=== PATIENT | male | born 1965 | race Hispanic/Latino ===

== ENCOUNTER 2020-02-29 15:05 | Observation (INO) | payer OTHER ==
[2020-02-29] MEDS ORDERED: NA CHLORIDE 0.9% 1,000 ML ONE (15:43)
[2020-02-29 15:50] LABS: Albumin 3.4 g/dL (3.4-5.0); Bilirubin Direct 0.1 mg/dL (0-0.2); Bilirubin Total 0.4 mg/dL (0.2-1.0); Magnesium 2.4 mg/dL (1.8-2.4); Potassium 3.5 mmol/L (3.5-5.1); Protein, Total 7.5 g/dL (6.4-8.2); Troponin (Emerg Dept Use Only) 0.04 ng/mL (0.0-0.045)
[2020-02-29 15:51] LABS: Absolute Lymphocytes (CBC) 2.6 K/uL (0.7-4.9); Basophils % 0.7 % (0-1.3); Hematocrit 42.5 % (39.6-49.0); MPV 10.4 fL (7.6-11.3)
[2020-02-29] MEDS ORDERED: ENOXAPARIN 100 MG/ML SYR SQ ONE (17:16)
[2020-02-29] MEDS ORDERED: METOPROLOL TAR 25 MG TAB ONE (17:16)
--- NOTE | 2020-02-29 17:26 | RAD REPORT ---
EXAM DESCRIPTION: Tamara Single View02/29/2020 3:49 pm CLINICAL HISTORY: Chest pain COMPARISON: 2011 FINDINGS: The lungs appear clear of acute infiltrate. The heart is normal size IMPRESSION: No acute abnormalities displayed
--- NOTE | 2020-02-29 17:42 | EDPHYS ---
Physician Documentation [facility] Name: Soy Liu Age: 54 yrs Sex: Male : 1965 Arrival Date: 02/29/2020 Time: 15:08 Bed 2 Private MD: ED Physician Momo Pettit HPI: 02/28 16:49 This 54 yrs old Male presents to ER via EMS with complaints of Chest Pain. abraham 16:49 The patient or guardian reports chest pain that is located primarily in the substernal abraham area, anterior chest wall, left. Onset: this morning. The pain does not radiate. Associated signs and symptoms: Pertinent positives: shortness of breath. The chest pain is described as a pressure, squeezing. Duration: The patient or guardian reports multiple episodes, with no pattern. Modifying factors: The symptoms are alleviated by nothing. the symptoms are aggravated by nothing. Severity of pain: At its worst the pain was moderate in the emergency department the pain has improved moderately. The patient has not experienced similar symptoms in the past. Historical: - Allergies: 15:19 No Known Allergies; iw - Home Meds: 15:19 Lisinopril Oral once daily [Active]; iw - PMHx: 15:19 Hypertension; iw - PSHx: 15:19 None; iw - Immunization history:: Adult Immunizations. - Social history:: Smoking status: Patient denies any tobacco usage or history of. - Family history:: not pertinent. ROS: 16:49 Constitutional: Negative for fever, chills, and weight loss, Eyes: Negative for injury, abraham pain, redness, and discharge, ENT: Negative for injury, pain, and discharge, Neck: Negative for injury, pain, and swelling, Abdomen/GI: Negative for abdominal pain, nausea, vomiting, diarrhea, and constipation, Back: Negative for injury and pain, : Negative for injury, bleeding, discharge, and swelling, MS/Extremity: Negative for injury and deformity, Skin: Negative for injury, rash, and discoloration, Neuro: Negative for headache, weakness, numbness, tingling, and seizure, Psych: Negative for depression, anxiety, suicide ideation, homicidal ideation, and hallucinations, Allergy/Immunology: Negative for hives, rash, and allergies, Endocrine: Negative for neck swelling, polydipsia, polyuria, polyphagia, and marked weight changes, Hematologic/Lymphatic: Negative for swollen nodes, abnormal bleeding, and unusual bruising. 16:49 Cardiovascular: Positive for chest pain. 16:49 Respiratory: Positive for shortness of breath. 16:49 MS/extremity: Negative for acute changes. Exam: 16:49 Constitutional: This is a well developed, well nourished patient who is awake, alert, abraham and in no acute distress. Head/Face: Normocephalic, atraumatic. Eyes: Pupils equal round and reactive to light, extra-ocular motions intact. Lids and lashes normal. Conjunctiva and sclera are non-icteric and not injected. Cornea within normal limits. Periorbital areas with no swelling, redness, or edema. ENT: Nares patent. No nasal discharge, no septal abnormalities noted. Tympanic membranes are normal and external auditory canals are clear. Oropharynx with no redness, swelling, or masses, exudates, or evidence of obstruction, uvula midline. Mucous membranes moist. Neck: Trachea midline, no thyromegaly or masses palpated, and no cervical lymphadenopathy. Supple, full range of motion without nuchal rigidity, or vertebral point tenderness. No Meningismus. Chest/axilla: Normal chest wall appearance and motion. Nontender with no deformity. No lesions are appreciated. Cardiovascular: Regular rate and rhythm with a normal S1 and S2. No gallops, murmurs, or rubs. Normal PMI, no JVD. No pulse deficits. Respiratory: Lungs have equal breath sounds bilaterally, clear to auscultation and percussion. No rales, rhonchi or wheezes noted. No increased work of breathing, no retractions or nasal flaring. Abdomen/GI: Soft, non-tender, with normal bowel sounds. No distension or tympany. No guarding or rebound. No evidence of tenderness throughout. Back: No spinal tenderness. No costovertebral tenderness. Full range of motion. Male : Normal genitalia with no discharge or lesions. Skin: Warm, dry with normal turgor. Normal color with no rashes, no lesions, and no evidence of cellulitis. MS/ Extremity: Pulses equal, no cyanosis. Neurovascular intact. Full, normal range of motion. Neuro: Awake and alert, GCS 15, oriented to person, place, time, and situation. Cranial nerves II-XII grossly intact. Motor strength 5/5 in all extremities. Sensory grossly intact. Cerebellar exam normal. Normal gait. Psych: Awake, alert, with orientation to person, place and time. Behavior, mood, and affect are within normal limits. Vital Signs: 15:16 BP 140 / 84; Pulse 65; Resp 18; Pulse Ox 99% on R/A; Weight 117.93 kg; Height 5 ft. 7 iw in. (170.18 cm); Pain 9/10; 15:49 BP 133 / 103; Pulse 66; Resp 16; Pulse Ox 96% ; bp 16:08 BP 129 / 79; Pulse 71; Resp 17; Pulse Ox 96% ; bp 16:49 BP 128 / 64; Pulse 56; Resp 17; Pulse Ox 98% ; bp 18:16 BP 138 / 99; Pulse 61; Resp 17; Pulse Ox 99% ; bp 20:55 BP 144 / 84; Pulse 65; Resp 16; Temp 98.2; Pulse Ox 99% on R/A; rv 15:16 Body Mass Index 40.72 (117.93 kg, 170.18 cm) iw MDM: 15:11 Patient medically screened. abraham 16:52 Data reviewed: vital signs, nurses notes, lab test result(s), EKG, radiologic studies, abraham plain films. 16:52 Differential diagnosis: abnormal EKG, acute myocardial infarction, coronary artery abraham disease chest wall pain, Cholelithiasis hiatal hernia, pancreatitis, pulmonary embolus, stable angina, unstable angina. HEART Score: History: Moderately Suspicious (1), ECG: Normal (0), Age: > 45 and < 65 years (1), Risk Factors: 1 or 2 risk factors (1), [Hypertension] [Obesity] Troponin: < or = 1 x Normal Limit (0). The patient was given aspirin in the Emergency Department. The patient's deep vein thrombosis risk score was calculated as follows: Total Score: 0. This patient was found to be at low risk for a deep vein thrombosis by using the Well's assessment criteria. The patient's pulmonary embolism risk score was calculated as follows: Total Score: 0-2 points. This patient was found to be at low risk for a pulmonary embolism by using the Well's assessment criteria. YOBANY Risk Score: TOTAL SCORE = 0. Data interpreted: registered nurse renal: rate is 56 beats/min, rhythm is normal sinus rhythm, Pulse oximetry: on room air is 98 %. Test interpretation: by ED physician or midlevel provider: ECG, plain radiologic studies. Counseling: I had a detailed discussion with the patient and/or guardian regarding: the historical points, exam findings, and any diagnostic results supporting the discharge/admit diagnosis, lab results, radiology results, the need for further work-up and treatment in the hospital. ED course: cp , risk factors, pain improved, no chest pressure, dr ovalle accepting. 02/28 15:12 Order name: Basic Metabolic Panel; Complete Time: 16:44 [facility] 02/28 15:12 Order name: CBC with Diff; Complete Time: 16:44 [facility] 02/28 15:12 Order name: LFT's; Complete Time: 16:44 [facility] 02/28 15:12 Order name: Magnesium; Complete Time: 16:44 [facility] 02/28 15:12 Order name: NT PRO-BNP; Complete Time: 16:44 [facility] 02/28 15:12 Order name: Troponin (emerg Dept Use Only); Complete Time: 16:44 [facility] 02/28 15:12 Order name: XRAY Chest (1 view) [facility] 02/28 15:12 Order name: EKG; Complete Time: 15:13 [facility] 02/28 15:12 Order name: Cardiac monitoring; Complete Time: 15:14 [facility] 02/28 15:12 Order name: EKG - Nurse/Tech; Complete Time: 15:15 [facility] 02/28 15:12 Order name: Lipase; Complete Time: 16:44 [facility] 02/28 15:12 Order name: IV Saline Lock; Complete Time: 15:19 [facility] 02/28 15:12 Order name: Labs collected and sent; Complete Time: 15:19 [facility] 02/28 15:12 Order name: O2 Per Protocol; Complete Time: 15:15 [facility] 02/28 15:12 Order name: O2 Sat Monitoring; Complete Time: 15:15 [facility] Administered Medications: 15:20 Drug: NS 0.9% 1000 ml Route: IV; Rate: 125 ml/hr; Site: right antecubital; bp 17:00 Drug: Lopressor 25 mg Route: PO; bp 18:18 Follow up: Response: No adverse reaction bp 17:00 Drug: Lovenox 1 mg/kg Route: Sub-Q; Site: left lower abdomen; bp 18:17 Follow up: Response: No adverse reaction bp Disposition: 02/29/20 17:40 Hospitalization ordered by Prince Yeni for Observation. Preliminary diagnosis are Other chest pain, Obesity, unspecified, Essential (primary) hypertension, Angina pectoris, unspecified. - Bed requested for Telemetry/MedSurg (observation). - Status is Observation. rv - Condition is Fair. - Problem is new. - Symptoms have improved. Signatures: Dispatcher [employer] EDMS Momo Pettit MD MD cha Williams, Irene, RN RN iw Peltier, Brian RN RN Karina Holly Ronaldo, RN RN rv Corrections: (The following items were deleted from the chart) 18:42 17:40 Hospitalization Ordered by Prince Yeni WHITE for Observation. Preliminary eb diagnosis is Other chest pain; Obesity, unspecified; Essential (primary) hypertension; Angina pectoris, unspecified. Bed requested for Telemetry/MedSurg (observation). Status is Observation. Condition is Fair. Problem is new. Symptoms have improved. abraham 21:15 18:42 02/29/2020 17:40 Hospitalization Ordered by Prince Yeni WHITE for Observation. rv Preliminary diagnosis is Other chest pain; Obesity, unspecified; Essential (primary) hypertension; Angina pectoris, unspecified. Bed requested for Telemetry/MedSurg (observation). Status is Observation. Condition is Fair. Problem is new. Symptoms have improved. eb
--- NOTE | 2020-02-29 17:42 | ER ---
Nurse's Notes [facility] Name: Soy Liu Age: 54 yrs Sex: Male : 1965 Arrival Date: 02/29/2020 Time: 15:08 Bed 2 Private MD: Diagnosis: Other chest pain;Obesity, unspecified;Essential (primary) hypertension;Angina pectoris, unspecified Presentation: 02/28 15:16 Chief complaint: EMS states: left sided chest pain, nausea and general weakness since iw last night, pain described as sharp, stabbing , also has mild diff breathing , denies fever or cough. Coronavirus screen: Proceed with normal triage. Patient denies a cough. Patient denies shortness of breath or difficulty breathing. Patient denies measured and/or subjective temperature greater than 100.4F prior to today's visit. Patient denies travel on a cruise ship or to a country the [facility] currently lists as an affected area. Patient denies contact with known and/or suspected case of COVID-19. Ebola Screen: Patient negative for fever greater than or equal to 101.5 degrees Fahrenheit, and additional compatible Ebola Virus Disease symptoms Patient denies exposure to infectious person. Patient denies travel to an Ebola-affected area in the 21 days before illness onset. No symptoms or risks identified at this time. Initial Sepsis Screen: Does the patient meet any 2 criteria? No. Patient's initial sepsis screen is negative. Does the patient have a suspected source of infection? No. Patient's initial sepsis screen is negative. Risk Assessment: Do you want to hurt yourself or someone else? Patient reports no desire to harm self or others. Onset of symptoms was February 28, 2020. 15:16 Method Of Arrival: EMS: [facility] iw 15:16 Acuity: JANIS 3 iw Triage Assessment: 15:20 General: Appears in no apparent distress. comfortable, Behavior is cooperative, bp appropriate for age, anxious. Pain: Complains of pain in chest. EENT: No deficits noted. Neuro: No deficits noted. Cardiovascular: Rhythm is sinus rhythm. Respiratory: No deficits noted. GI: No signs and/or symptoms were reported involving the gastrointestinal system. : No signs and/or symptoms were reported regarding the genitourinary system. Derm: No deficits noted. Musculoskeletal: No deficits noted. Historical: - Allergies: 15:19 No Known Allergies; iw - Home Meds: 15:19 Lisinopril Oral once daily [Active]; iw - PMHx: 15:19 Hypertension; iw - PSHx: 15:19 None; iw - Immunization history:: Adult Immunizations. - Social history:: Smoking status: Patient denies any tobacco usage or history of. - Family history:: not pertinent. Screenin:20 Abuse screen: Denies threats or abuse. Denies injuries from another. Nutritional bp screening: No deficits noted. Tuberculosis screening: No symptoms or risk factors identified. Fall Risk None identified. Assessment: 15:20 General: SEE TRIAGE NOTE. bp 16:08 Reassessment: IVF INFUSING, ALL CURRENT ORDERS COMPLETED. bp 16:50 Reassessment: VS STABLE ON MONITOR. RESULTS PENDING FOR DISPO. bp 18:16 Reassessment: ADMIT IN PROCESS. NO S/S ACUTE DISTRESS. HOSPITALIST AT B/S. bp 20:56 Pain: Pain does not radiate. Pain began suddenly. rv Vital Signs: 15:16 BP 140 / 84; Pulse 65; Resp 18; Pulse Ox 99% on R/A; Weight 117.93 kg; Height 5 ft. 7 iw in. (170.18 cm); Pain 9/10; 15:49 BP 133 / 103; Pulse 66; Resp 16; Pulse Ox 96% ; bp 16:08 BP 129 / 79; Pulse 71; Resp 17; Pulse Ox 96% ; bp 16:49 BP 128 / 64; Pulse 56; Resp 17; Pulse Ox 98% ; bp 18:16 BP 138 / 99; Pulse 61; Resp 17; Pulse Ox 99% ; bp 20:55 BP 144 / 84; Pulse 65; Resp 16; Temp 98.2; Pulse Ox 99% on R/A; rv 15:16 Body Mass Index 40.72 (117.93 kg, 170.18 cm) iw ED Course: 15:08 Patient arrived in ED. bp 15:10 Momo Pettit MD is Attending Physician. abraham 15:14 Brock Keith, RON is Primary Nurse. bp 15:15 Maintain EMS IV. Dressing intact. Good blood return noted. Site clean \T\ dry. Gauge \T\ bp site: 20 G RIGHT AC. 15:15 EKG done, by ED staff, reviewed by Momo Pettit MD. dh3 15:18 Triage completed. iw 15:19 Arm band placed on. iw 15:20 Patient has correct armband on for positive identification. Bed in low position. Call bp light in reach. Side rails up X2. riveter hand on. Pulse ox on. NIBP on. 15:49 XRAY Chest (1 view) In Process Unspecified. EDMI 17:40 Prince Jaime MD is Hospitalizing Provider. abraham 20:55 No provider procedures requiring assistance completed. IV is patent, with fluids rv infusing freely, with good blood return, Patient admitted, IV remains in place. Patient maintains SpO2 saturation greater than 95% on room air. Administered Medications: 15:20 Drug: NS 0.9% 1000 ml Route: IV; Rate: 125 ml/hr; Site: right antecubital; bp 17:00 Drug: Lopressor 25 mg Route: PO; bp 18:18 Follow up: Response: No adverse reaction bp 17:00 Drug: Lovenox 1 mg/kg Route: Sub-Q; Site: left lower abdomen; bp 18:17 Follow up: Response: No adverse reaction bp Outcome: 17:40 Decision to Hospitalize by Provider. abraham 20:56 Admitted to Med/surg accompanied by tech, via wheelchair, room 221, Report called to rv LUPE VELASQUEZ 20:56 Condition: good 20:56 Instructed on the need for admit. 21:15 Patient left the ED. rv Signatures: Dispatcher [employer] Momo Brooke MD MD cha Williams, Irene, RN RON Veda Oseguera formerly [facility] Brock Keith RN RN Modesto Kirby RN RN rv
[2020-02-29] MEDS ORDERED: LORAZEPAM 0.5 MG TABLET PO PRN (18:37)
--- NOTE | 2020-02-29 18:44 | P.HP ---
Certification for Inpatient Patient admitted to: Observation With expected LOS: <2 Midnights Practitioner: I am a practitioner with admitting privileges, knowledge of patient current condition, hospital course, and medical plan of care. Services: Services provided to patient in accordance with Admission requirements found in Title 42 Section 412.3 of the Code of Federal Regulations Patient History Date of Service: 02/29/20 Reason for admission: Chest pain History of Present Illness: Patient is a 54-year-old male with a known past medical history of hypertension and hyperlipidemia who presented the ER accompanied by the be evaluated for chest pain. The onset of symptoms was the evening before admission when he developed a non radiating, left-sided chest pain. Patient has nitroglycerin at home but did not take it because he did in no a headache at the time. Associated symptoms include dizziness that the patient described as vertiginous, nausea and dry heaving. He has a distant history of polysubstance abuse but none currently. He has never had a stress test. 1st troponin and EKG the ER are normal. Allergies No Known Allergies Allergy (Unverified 01/09/12 01:40) Home Medications: Aspirin [Aspirin EC 81 MG] 2 tab PO DAILY #0 tablet. 01/10/12 LORazepam [Ativan] 0.5 mg PO Q24HP PRN #0 tab 01/10/12 Lisinopril 20 mg PO DAILY #0 tablet 01/10/12 Pravastatin Sodium [Pravachol] 20 mg PO DAILY #0 tablet 01/10/12 hydroCHLOROthiazide [Hydrodiuril*] 25 mg PO DAILY #0 tab 01/10/12 - Social History Alcohol use: No CD- Drugs: No Caffeine use: Yes Physical Examination - Physical Exam General: Cooperative, Obese, Other (Lethargic) HEENT: Atraumatic, Normocephalic, EOMI Neck: Supple Respiratory: Clear to auscultation bilaterally, Normal air movement Cardiovascular: No edema, Normal pulses, Regular rate/rhythm, Normal S1 S2 Gastrointestinal: Normal bowel sounds, Soft and benign, Non-distended, No tenderness, Other (Obese abdomen) Musculoskeletal: No swelling, No contractures, No erythema, No tenderness, No warmth Integumentary: No rashes, No breakdown, No significant lesion, No tenderness/swelling, No erythema, No warmth, No cyanosis Neurological: Normal speech, Sensation intact, Normal affect - Studies Laboratory Data (last 24 hrs) 02/29/20 15:20: WBC 8.6, Hgb 14.0, Hct 42.5, Plt Count 239 02/29/20 15:20: Sodium 141, Potassium 3.5, BUN 17, Creatinine 1.07, Glucose 110 H, Magnesium 2.4, Total Bilirubin 0.4, AST 26, ALT 59, Alkaline Phosphatase 101, Lipase 162 Assessment and Plan - Problems (Diagnosis) (1) Chest pain Current Visit: Yes Status: Acute (2) Morbid obesity Current Visit: Yes Status: Acute (3) Hypertension Current Visit: Yes Status: Acute - Plan Assessment 54-year-old male with morbid obesity, hypertension currently admitted for evaluation of chest pain and. 1st troponin and EKG within normal limits. Chest pain Hypertension Morbid obesity Plan: Admit under observation with telemetry Risk stratification with lipid panel and A1c Trend troponin and EKG Patient will benefit from a stress test at this time Discharge tomorrow if workup normal - Advance Directives Does patient have a Living Will: No Does patient have a Durable POA for Healthcare: No
[2020-02-29 21:43] VITALS: BMI 40.6
[2020-03-01] MEDS: ASPIRIN EC 81 MG TAB PO SCH (08:03)
[2020-03-01] MEDS ORDERED: NITROGLYCERIN 0.4 MG/TAB SL ONE (08:11)
[2020-03-01] MEDS ORDERED: CODEINE 30MG/APAP 300MG TAB PO ONE (08:12)
[2020-03-01] MEDS ORDERED: ONDANSETRON 4 MG/2 ML VIAL IV ONE (08:12)
[2020-03-01] MEDS: ATORVASTATIN 40 MG TAB PO SCH ×2 (08:36→08:40)
[2020-03-01] MEDS ORDERED: LISINOPRIL PO SCH (09:00)
[2020-03-01] MEDS ORDERED: [UNRECOGNIZED DRUG - OTHER] PO SCH (09:00)
[2020-03-01] MEDS ORDERED: HYDROCHLOROTHIAZIDE PO SCH (09:00)
[2020-03-01] MEDS ORDERED: lisinopriL 20 MG TAB PO SCH (09:00)
[2020-03-01] MEDS: MECLIZINE HCL 12.5 MG TAB PO SCH (09:45)
[2020-03-01] MEDS ORDERED: Enoxaparin 120 MG/0.8 ML SYR SQ SCH ×2 (10:00→21:00)
[2020-03-01] MEDS ORDERED: hydroCHLOROthiazide 25 MG TAB PO SCH (10:00)
[2020-03-01 11:00] VITALS: O2SAT 96
[2020-03-01] MEDS ORDERED: hydroCHLOROthiazide 25 MG TAB PO ONE (11:00)
[2020-03-01] MEDS ORDERED: lisinopriL 20 MG TAB PO ONE (11:00)
--- NOTE | 2020-03-01 11:24 | EKG ---
Test Date: 2020-03-01 Test Time: 08:46:51 Staffing Analyst: RT Valderrama MEASUREMENT RESULTS: Intervals: Rate: 66 ID: [id number] QRSD: 100 QT: 396 QTc: 415 [place]: P: 56 ID: [id number] QRS: 10 T: 21 INTERPRETIVE STATEMENTS: Normal sinus rhythm Normal ECG Compared to ECG 02/29/2020 21:42:29 Sinus bradycardia no longer present Electronically Signed On 03-01-20 11:23:06 CDT by Margarito Diez
--- NOTE | 2020-03-01 11:25 | EKG ---
Test Date: 2020-02-29 Test Time: 21:42:29 Event Marketing Coordinator: RT MEASUREMENT RESULTS: Intervals: Rate: 57 W[place]: 148 QRSD: 102 QT: 414 QTc: 402 [place]: P: 43 W[place]: 148 QRS: 20 T: 21 INTERPRETIVE STATEMENTS: Sinus bradycardia Otherwise normal ECG Compared to ECG 01/09/2012 17:29:40 Sinus rhythm no longer present Electronically Signed On 03-01-20 11:23:16 CDT by Margarito Diez
--- NOTE | 2020-03-01 11:26 | EKG ---
Test Date: 2020-02-29 Test Time: 15:15:56 Varnish Inspector: ANTHONY MEASUREMENT RESULTS: Intervals: Rate: 64 RI: 146 QRSD: 100 QT: 404 QTc: 416 [place]: P: 66 RI: 146 QRS: 25 T: 28 INTERPRETIVE STATEMENTS: Normal sinus rhythm Normal ECG Compared to ECG 01/09/2012 17:29:40 No significant changes Electronically Signed On 03-01-20 11:23:25 CDT by Margarito Diez
--- NOTE | 2020-03-01 12:02 | P.PN ---
Subjective Date of Service: 03/01/20 Chief Complaint: Chest pain Subjective: No new changes (Patient is complaining of nausea, headache and chest pain. Chest pain was unrelieved with nitroglycerin sublingual. He is also having vertiginous symptoms. Cardiology consulted.) Physical Examination - Vital Signs Temperature: 97.5 F Blood Pressure: 142/84 Pulse: 65 Respirations: 19 Pulse Ox (%): 94 - Physical Exam General: Moderate distress, Other HEENT: Atraumatic, Normocephalic, EOMI Neck: Supple Respiratory: Clear to auscultation bilaterally, Normal air movement Cardiovascular: No edema, Normal pulses, Regular rate/rhythm, Normal S1 S2 Gastrointestinal: Normal bowel sounds, Soft and benign, Non-distended, No tenderness Musculoskeletal: No clubbing, No swelling, No contractures, No erythema, No tenderness, No warmth Integumentary: No rashes, No breakdown, No significant lesion, No tenderness/swelling, No erythema, No warmth, No cyanosis Neurological: Normal speech, Normal tone, Normal affect - Studies Laboratory Data (last 24 hrs) 02/29/20 15:20: WBC 8.6, Hgb 14.0, Hct 42.5, Plt Count 239 02/29/20 15:20: Sodium 141, Potassium 3.5, BUN 17, Creatinine 1.07, Glucose 110 H, Magnesium 2.4, Total Bilirubin 0.4, AST 26, ALT 59, Alkaline Phosphatase 101, Lipase 162 Assessment & Plan - Problems (Diagnosis) (1) Chest pain Current Visit: Yes Status: Acute (2) Morbid obesity Current Visit: Yes Status: Acute (3) Hypertension Current Visit: Yes Status: Acute Physician Review Additional Text: Assessment 54-year-old male with morbid obesity, hypertension currently admitted for evaluation of chest pain. Troponin has been negative x3. Her EKG was within normal limits. However, he continued to complain of persistent chest pain complicated by vertiginous symptoms, nausea and headache. Chest pain Hypertension Morbid obesity Vertigo Nausea Plan: Keep patient 1 more day Will start systemic anti coagulation for possible unstable angina Cardiology was consulted Optimize medication to include high-intensity statin P.r.n. nitroglycerin on board Follow-up CT head and chest assess non-cardiac etiology Started on meclizine for possible BPPV PRN zofran on board
--- NOTE | 2020-03-01 12:05 | RAD REPORT ---
EXAM DESCRIPTION: CT - Head Brain Wo Cont - 03/01/2020 11:59 am CLINICAL HISTORY: chest pain Headache, drowsiness COMPARISON: <Comparisons> TECHNIQUE: All CT scans are performed using dose optimization technique as appropriate and may inclu de automated exposure control or mA/KV adjustment according to patient size. FINDINGS: No intracranial hemorrhage, hydrocephalus or extra-axial fluid collection.No areas of brai n edema or evidence of midline shift. The paranasal sinuses and mastoids are clear. The calvarium is intact. IMPRESSION: No acute intracranial abnormality.
--- NOTE | 2020-03-01 12:08 | RAD REPORT ---
EXAM DESCRIPTION: CT - Chest For Pe Angio - 03/01/2020 11:59 am CLINICAL HISTORY: Chest pain. chest pain COMPARISON: No comparisonsNo comparisons TECHNIQUE: CT angiogram of the pulmonary arteries was performed with MIP. All CT scans are performed using dose optimization technique as appropriate and may include automated exposure control or mA/KV adjustment according to patient size. FINDINGS: No evidence of pulmonary thromboembolism. No acute aortic finding demonstrated. The lungs are clear. No significant pericardial or pleural fluid. No concerning bony finding. Prominent fatty liver. IMPRESSION: No evidence of pulmonary thromboembolism. No acute lung findings.
[2020-03-01] MEDS: PANTOPRAZOLE 40MG TABLET PO SCH (12:31)
[2020-03-01] MEDS ORDERED: TRAMADOL HCL 50 MG TAB PO PRN (23:02)
[2020-03-02] MEDS: PANTOPRAZOLE 40MG TABLET PO SCH (05:55)
[2020-03-02] MEDS: ASPIRIN EC 81 MG TAB PO SCH (08:47)
[2020-03-02] MEDS: MECLIZINE HCL 12.5 MG TAB PO SCH (08:48)
[2020-03-02] MEDS ORDERED: ACETAMINOPHEN 325 MG TABLET PO PRN (08:53)
[2020-03-02] MEDS ORDERED: lisinopriL 20 MG TAB PO SCH (09:00)
[2020-03-02] MEDS ORDERED: hydroCHLOROthiazide 25 MG TAB PO SCH (09:00)
--- NOTE | 2020-03-02 12:07 | CON ---
Date of Consultation: 03/01/2020 Patient admitted on 02/29/2020. I saw the patient on 03/01/2020. Reason For Consultation: Chest pain. History Of Present Illness: Mr. Liu is a 54-year-old male without any previous c ardiac history. He has a history of hypertension and dyslipidemia. He came in with multiple complai nts, but one of them was definitely vertigo. He had dizziness and vertigo symptoms when he moves his head in any position. He also has nausea and vomiting. Had midepigastric chest pain that has been going on now for about 2 to 3 days. Denied any PND, orthopnea, pedal edema, palpitation, or syncope. He has a normal EKG and normal troponin. Past Medical History: As stated above. Allergies: NONE. Review of Systems: Negative. Social History: Negative for tobacco or alcohol. Family History: Negative for heart disease. Medications: At home include lisinopril with hydrochlorothiazide. Physical Examination: General: He was in moderate distress from pain in his midepigastric region, complained of dizziness and nausea, looked uncomfortable. Vital Signs: Stable. Sinus rhythm. Afebrile. HEENT: Negative. Neck: Supple without any bruit, lymphadenopathy, JVD, or thyromegaly. Chest: Clear to auscultation and percussion. Cardiac: Revealed a regular rhythm and rate. No murmurs, gallops, or rubs. Abdomen: Tender throughout. No rebound. No rigidity. Extremities: Revealed no clubbing, cyanosis, or edema. Diagnostic Data: His EKG was normal. Chest x-ray was normal. Troponin was normal. He had a CTA th at was normal. He had a CT of his head that was normal. His triglyceride was 328, cholesterol was 2 03. Impression And Plan: 1.Atypical chest pain, most likely gastric or gastroesophageal in nature. I would like him to start Protonix. 2.Dyslipidemia. He should be on a statin. 3.Hypertension, well controlled on lisinopril and hydrochlorothiazide. 4.Obesity. 5.Vertigo. Meclizine has been started. He has had a negative workup including CT of his head, CTA, chest x-ray, EKG, troponin, BNP. I think if his symptoms do not improve, we should consider him for a GI consultation, possibly endoscopy. F rom cardiac risk factors, he does have hypertension, dyslipidemia, and obesity. I think an outpatien t echocardiogram and an MPI may be reasonable. We will see how he does with the Protonix and the [facility] lizine first. If he feels better tomorrow, he can go home and we will do an outpatient workup. BONY/GAYATRI Voice ID: [id number] Report ID: [id number]
[2020-03-02 12:46] VITALS: BP 138/86; TEMP 98.1
--- NOTE | 2020-03-02 13:40 | PN ---
Date of Progress Note: 03/02/2020 Patient had been admitted for chest pain. TN ruled out. He was found to have hypertension, dyslipid emia, obesity, normal EKG, normal troponin. Workup that has been very extensive so far including usman ctrocardiogram, head CT, CTA, chest x-ray, all of which have been negative. His troponin did not bum p. He remained in sinus rhythm. Symptoms have improved on meclizine and on Protonix. I am in favor of him going home and I will make arrangements for him to have an outpatient echocardiogram and an M PI. The case will be discussed further with Dr. Jaime. BONY/GAYATRI Voice ID: [id number] Report ID: [id number]
--- NOTE | 2020-03-02 14:28 | P.PN ---
Subjective Date of Service: 03/02/20 Chief Complaint: Chest pain Subjective: No new changes (- still chest pain , -c/o of intermittent headaches still - still back pain) Physical Examination - Vital Signs Temperature: 98.1 F Blood Pressure: 138/86 Pulse: 60 Respirations: 20 Pulse Ox (%): 96 - Physical Exam General: Alert, Oriented x3, Obese HEENT: Atraumatic, Normocephalic, PERRLA, Mucous membr. moist/pink Neck: Supple, 2+ carotid pulse no bruit Respiratory: Clear to auscultation bilaterally, Normal air movement Cardiovascular: Normal pulses, Regular rate/rhythm, Normal S1 S2 Gastrointestinal: Normal bowel sounds, Soft and benign, Non-distended Musculoskeletal: No clubbing, No swelling Integumentary: No rashes, No breakdown Neurological: Normal speech, Normal strength at 5/5 x4 extr, Normal tone Assessment And Plan Physician Review: Patient Assessed, Agree with Above Assessment and Plan Physician Review Additional Text: Assessment 54-year-old male with morbid obesity, hypertension currently admitted for evaluation of chest pain. Troponin has been negative x3. Her EKG was within normal limits. However, he continued to complain of persistent chest pain complicated by vertiginous symptoms, nausea and headache. Chest pain Hypertension Morbid obesity Vertigo Nausea Plan: CE and EKG negative - improving dizizness - will do nsaid for headache and chest pain -cleared for cardiology for dc home today -follow echo and MRI as outpt - still possible BPPV
--- NOTE | 2020-03-02 14:43 | P.DS ---
Admission Date: 02/29/20 Discharge Date: 03/02/20 Disposition: ROUTINE DISCHARGE Discharge Condition: FAIR Reason for Admission: Chest pain - Problems (1) Chest pain Current Visit: Yes Status: Acute (2) Hypertension Current Visit: Yes Status: Acute (3) Migrainous dizziness Current Visit: Yes Status: Acute (4) Morbid obesity Current Visit: Yes Status: Acute Hospital Course: Patient with history of hypertension, obesity admitted for headaches, and chest pain. She had negative set of cardiac enzymes. EKG was unremarkable. He had a CT of the chest PE protocol-shows no evidence of emboli seen. He had head CT that was negative for any acute infarct. He was evaluated by Cardiology and started on empirical meclizine for presumed benign positional Vertigo . With negative cardiac enzymes patient has been scheduled to follow with Cardiology for outpatient echocardiogram and myocardial perfusion studies. Patient continued to have headache and chest pain symptoms and was started on empirical NSAIDs. He was noted with hyperlipidemia and started on Lipitor. Patient is clinically stable and will be discharged home today Vital Signs/Physical Exam: Temp Pulse Resp BP Pulse Ox 98.1 F 60 20 138/86 96 03/02/20 14:28 03/02/20 14:28 03/02/20 14:28 03/02/20 14:28 03/02/20 14:28 General: Alert, In no apparent distress, Oriented x3 HEENT: Atraumatic, Normocephalic, PERRLA, Mucous membr. moist/pink Neck: Supple, 2+ carotid pulse no bruit Respiratory: Clear to auscultation bilaterally, Normal air movement Cardiovascular: Normal pulses, Regular rate/rhythm, Normal S1 S2 Gastrointestinal: Normal bowel sounds, Soft and benign, Non-distended Musculoskeletal: No clubbing, No swelling Integumentary: No rashes, No breakdown Neurological: Normal gait, Normal speech, Normal strength at 5/5 x4 extr External genitalia: No edema, No lesions Laboratory Data at Discharge: WBC 8.6 K/uL (4.3-10.9) 02/29/20 15:20 Hgb 14.0 g/dL (13.6-17.9) 02/29/20 15:20 Hct 42.5 % (39.6-49.0) 02/29/20 15:20 Plt Count 239 K/uL (152-406) 02/29/20 15:20 Sodium 141 mmol/L (136-145) 02/29/20 15:20 Potassium 3.5 mmol/L (3.5-5.1) 02/29/20 15:20 BUN 17 mg/dL (7-18) 02/29/20 15:20 Creatinine 1.07 mg/dL (0.55-1.3) 02/29/20 15:20 Glucose 110 mg/dL (74-106) H 02/29/20 15:20 Magnesium 2.4 mg/dL (1.8-2.4) 02/29/20 15:20 Total Bilirubin 0.4 mg/dL (0.2-1.0) 02/29/20 15:20 AST 26 U/L (15-37) 02/29/20 15:20 ALT 59 U/L (12-78) 02/29/20 15:20 Alkaline Phosphatase 101 U/L (45-117) 02/29/20 15:20 Troponin I 0.04 ng/mL (0.0-0.045) 03/01/20 08:50 Triglycerides 328 mg/dL (<150) H 03/01/20 05:07 Cholesterol 203 mg/dL (<200) H 03/01/20 05:07 HDL Cholesterol 37 mg/dL (40-60) L 03/01/20 05:07 Cholesterol/HDL Ratio 5.49 03/01/20 05:07 Lipase 162 U/L (73-393) 02/29/20 15:20 Home Medications: Lisinopril/Hydrochlorothiazide [Lisinopril-Hctz 20-12.5 mg Tab] 2 tab PO DAILY 02/29/20 Aspirin [Aspirin EC 81 MG] 81 mg PO DAILY #30 tablet. 03/02/20 Atorvastatin Calcium [Lipitor] 40 mg PO BEDTIME #30 tab 03/02/20 Meclizine HCl [Antivert*] 25 mg PO DAILY #30 tab 03/02/20 Naproxen 375 mg PO BID #14 tablet. 03/02/20 Pantoprazole [Protonix Tab*] 40 mg PO DAILYAC #30 tab 03/02/20 New Medications: Meclizine HCl [Antivert*] 25 mg PO DAILY #30 tab Aspirin [Aspirin EC 81 MG] 81 mg PO DAILY #30 tablet. Atorvastatin Calcium [Lipitor] 40 mg PO BEDTIME #30 tab Naproxen 375 mg PO BID #14 tablet. Pantoprazole [Protonix Tab*] 40 mg PO DAILYAC #30 tab Diet: Low sodium Activity: Fall precautions Time spent managing pt's care (in minutes): 35
== END 2020-03-02 16:01 | disposition home or self-care (01) ==
LOC: ER 15:05 → ERHOLD 17:13 → 2ND 20:54
PROVIDERS: ADMIT Internal Medicine; ATTEND Internal Medicine
DX: R07.89 Other chest pain (principal); I10 Essential (primary) hypertension; E78.5 Hyperlipidemia, unspecified; R42 Dizziness and giddiness; R11.0 Nausea; E66.01 Morbid (severe) obesity due to excess calories; Z68.41 Body mass index [BMI] 40.0-44.9, adult; Z11.59 Encounter for screening for other viral diseases; Z79.82 Long term (current) use of aspirin; Z79.899 Other long term (current) drug therapy
CPT/HCPCS: 93005 ×3; 85025; 80048; 36415 ×2; 83735; 80061; 80076; 83036; 84484 ×3; 83690; 83880; 70450; 71275; 71045; 96372; 99285; U0002; Q9967; J8597 ×2; J1650 ×2; J7030; J2405; G0378 ×4

== ENCOUNTER 2021-08-06 08:27 | Emergency (ER) | payer OTHER ==
--- OUTSIDE RECORDS SUMMARY | 2021-08-06 08:31 | XMS REPORT | Continuity of Care Document ---
:1965 Author Organization [facility] t Address [address] [place] [address] Care Team Providers Name Role Phone Philip Colby [facility] Primary Care Physic malika Lizte FERMENTER CHAMPAGNE, F Attending Clinician Payers Payer Name Policy Type Policy Number Effective Date Expiration Date S Riidr [id number] 2017 NON-CONTRACT 00:00:00 GENERIC Problems Condition Condition Condition Status Onset Resolution Last Treating Co mments Source Name Details Category Date Date Treatment Clinician Date No known No known Disease Unive rs active active ity of problems problems [facility] Allergies, Adverse Reactions, Alerts Allergy Allergy Status Severity Reaction(s) Onset Inactive Treating Comm ents Source Name Type Date Date Clinician NO KNOWN Drug Active Univers ALLERGIE Class ity of S [facility] Social History Social Habit Start Date Stop Date Quantity Comments Source Exposure to Not sure [facility] SARS-CoV-2 (event) Medica l Branch Sex Assigned At [birth year] [facility] 00:00:00 00:00:00 [facility] Smoking Status Start Date Stop Date Source Unknown if ever smoked [facility] Medications Ordered Filled Start Stop Current Ordering Indication Dosage Frequency Signature Comments Components Source Medication Medication Date Date Medication? Clinician (SIG) Name Name dexamethaso 2020- No 10mg 10 mg, Uni vers ne 05-17 Oral, ity of (DEC[place] 18:30: 17:32 [place], [place] 00 :00 dose, Sun Medi snehal injection 05/17/21 at Bran ch 10 mg 1330, Routine ketorolac 2020- No 30mg 30 mg, Unive rs (TORADOL) 05-17 Intramuscu ity of injection 18:30: 17:31 [place], [place]CE, [place] 30 mg 00 :00 1 dose, Medical [place] [facility] 05/17/21 at 1330, CONNIE
Fa culty member approving Restricted medication : DWAYNE [place] dexamethaso 2020- No 10mg 10 mg, Uni vers ne 05-17 Oral, ity of (DECADRON 18:30: 17:32 [place] 00 :00 dose, Sun Medi snehal injection 05/17/21 at Bran ch 10 mg 1330, Routine ketorolac 2020- No 30mg 30 mg, Unive rs (TORADOL) 05-17 Intramuscu ity of injection 18:30: 17:31 lar, ONCE, [place] 30 mg 00 :00 1 dose, [facility] 05/17/21 at 1330, CONNIE
Fa culty member approving Restricted medication : DWAYNE [place] cyclobenzap Yes [id number] 10mg Take 1 Univers rine 10 mg 9-12 tablet by ity of tablet 00:00: mouth 3 [place] 00 (three) Medical times Branch daily as needed for Muscle Spasms. ibuprofen Yes [id number] 800mg Take 1 Univers 800 mg 9-12 tablet by ity of tablet 00:00: mouth [place] 00 every 6 Medical (six) Branch hours as needed for Pain (scale 4-6). cyclobenzap Yes [id number] 10mg Take 1 Univers rine 10 mg 9-12 tablet by ity of tablet 00:00: mouth 3 [place] 00 (three) Medical times Branch daily as needed for Muscle Spasms. ibuprofen Yes [id number] 800mg Take 1 Univers 800 mg 9-12 tablet by ity of tablet 00:00: mouth [place] 00 every 6 Medical (six) Branch hours as needed for Pain (scale 4-6). ondansetron Yes 4mg Take 1 Univ ers 4 mg 2-09 tablet by ity of disintegrat 00:00: mouth [place] ing tablet 00 every 8 Medica l (eight) Branch hours as needed for Nausea and Vomiting (N/V). benzonatate 2018-0 Yes 100mg Take 1 Uni vers (TESSALON 2-09 capsule by [place]) 100 00:00: mouth [place] mg capsule 00 every 8 Medica l (eight) Branch hours as needed for Cough. ondansetron 2018-0 Yes 4mg Take 1 Univ ers 4 mg 2-09 tablet by ity of disintegrat 00:00: mouth [place] ing tablet 00 every 8 Medica l (eight) Branch hours as needed for Nausea and Vomiting (N/V). benzonatate 2018-0 Yes 100mg Take 1 Uni vers (TESSALON 2-09 capsule by [place]) 100 00:00: mouth [place] mg capsule 00 every 8 Medica l (eight) Branch hours as needed for Cough. Vital Signs Vital Name Observation Time Observation Value Comments Source Systolic blood 2021-05-17 17:07:58 138 mm[Hg[facility] Di[facility] 2021-05-17 17:07:58 94 mm[Hg] [facility] Heart rate 2021-05-17 17:07:58 75 /min [facility] Body temperature 2021-05-17 17:07:58 36.94 [facility] Respiratory rate 2021-05-17 17:07:58 17 /min [facility] Body height 2021-05-17 17:05:00 170.2 cm [facility] Body weight 2021-05-17 17:05:00 117.935 kg [facility] BMI 2021-05-17 17:05:00 40.72 kg/m2 [facility] Oxygen saturation in 2021-05-17 17:05:00 96 /min [facility] Arterial blood by [facility] Pulse oximetry [place] Procedures Procedure Date / Time Performed Performing Clinician Sourc e XR LUMBAR SPINE 3 VW 2021-05-17 17:50:14 Dwayne Cleveland Uni [facility] URINALYSIS 2021-05-17 17:37:00 Dwayne Cleveland [facility] CONSENT/REFUSAL FOR 2021-05-17 16:46:48 [facility], [facility] Medical Branch TREATMENT Encounters Start End Encounter Admission Attending Care Care Encounter Source Date/Time Date/Time Type Type Clinicians Facility Department ID 2021-05-17 2021-05-17 Emergency [place], [facility] [id number] Univers 12:20:00 13:32:00 [id number] [facility] [id number] [facility] snehal 084 Branch 2021-05-17 2021-05-17 Emergency X [facility] ERT [id number] Univers 11:46:00 11:46:00 [facility] Results Test Description Test Time Test Comments Results Result Comments Source URINALYSIS 2021-05-17 17:51:37 Test Item Value Reference Range Interpretation Comme nts APPEARANCE (test code = Clear Clear 6642065780) COLOR (test code = 9300096163) Yellow Yellow PH (test code = 4649136927) 4.8-8.0 SP GRAVITY (test code = 1.003-1.030 4936963839) GLU U QUAL (test code = Normal Normal 5299032218) BLOOD (test code = 0113217127) Negative Negative KETONES (test code = 4354443539) Negative Negative PROTEIN (test code = 2887-8) Negative Negative UROBILIN (test code = Normal Normal 5085085425) BILIRUBIN (test code = Negative Negative 0207137202) NITRITE (test code = 2357001452) Negative Negative LEUK SADIQ (test code = Negative Negative 7041514521) RBC/HPF (test code = 7662908314) See_Comment [Automated message] The system which ge nerated this result transmit sinai reference range: 0 - 3 HP F. The reference range was not used to interpret th is result as normal/abnormal . WBC/HPF (test code = 6823943127) See_Comment [Automated message] The system which ge nerated this result transmit sinai reference range: 0 - 5 HP F. The reference range was not used to interpret th is result as normal/abnormal . BACTERIA (test code = Negative Negative 5956398230) MUCOUS (test code = 4736117672) Slight Negative LPF A SQ EPITH (test code = <1 HPF 2627419188) Lab Interpretation (test code = Abnormal 10642-7) [facility] 17:51:37 Test Item Value Reference Range Interpretation Comments APPEARANCE (test code = Clear Clear 8807843641) COLOR (test code = Yellow Yellow 1276389585) PH (test code = 4.8-8.0 8225081615) SP GRAVITY (test code = 1.003-1.030 1060534914) GLU U QUAL (test code = Normal Normal 9030866124) BLOOD (test code = Negative Negative 3048696922) KETONES (test code = Negative Negative 2184872962) PROTEIN (test code = Negative Negative 2887-8) UROBILIN (test code = Normal Normal 6875358015) BILIRUBIN (test code = Negative Negative 0149664577) NITRITE (test code = Negative Negative 2244179620) LEUK SADIQ (test code = Negative Negative 8865495606) RBC/HPF (test code = See_Comment [Autom ated message] 1194256554) The system [employer] generated this result transmitted ref erence range: 0 - 3 HP F. The reference range was not used to int erpret this result as normal/abnormal . WBC/HPF (test code = See_Comment [Autom ated message] 6129243374) The system [employer] generated this result transmitted ref erence range: 0 - 5 HP F. The reference range was not used to int erpret this result as normal/abnormal . BACTERIA (test code = Negative Negative 9778043908) MUCOUS (test code = Slight Negative LPF A 9513764526) SQ EPITH (test code = <1 HPF 5326318535) Lab Interpretation (test Abnormal code = 61794-8) [facility]
[2021-08-06 08:55] LABS: Basophils % 0.7 % (0-1.3); Hematocrit 42.6 % (39.6-49.0); Lymphocytes % 33.5 % (15.3-44.8); MPV 9.3 fL (7.6-11.3); Protime INR 1.03; RBC Red Blood Cell Count 4.47 M/uL (4.33-5.43)
[2021-08-06 09:12] LABS: ALT/SGPT 57 U/L (12-78); AST/SGOT 22 U/L (15-37); Albumin 3.6 g/dL (3.4-5.0); Alkaline Phosphatase 96 U/L (45-117); BUN Blood Urea Nitrogen 24 mg/dL (7-18); Bicarbonate 28 mmol/L (21-32); Bilirubin Direct 0.2 mg/dL (0-0.2); Bilirubin Total 0.9 mg/dL (0.2-1.0); Glucose Level 157 mg/dL (74-106); Magnesium 2.2 mg/dL (1.8-2.4); NT PRO-BNP 21 pg/mL (<125); Potassium 3.2 mmol/L (3.5-5.1); Protein, Total 7.9 g/dL (6.4-8.2); Sodium Level 139 mmol/L (136-145); Troponin (Emerg Dept Use Only) < 0.02 ng/mL (0.0-0.045)
--- NOTE | 2021-08-06 09:12 | RAD REPORT ---
EXAM DESCRIPTION: RAD - Chest Single View - 08/06/2021 8:45 am CLINICAL HISTORY: CHEST PAIN COMPARISON: February 2020 TECHNIQUE: AP portable chest image was obtained 08/06/2021 8:45 am . FINDINGS: Lungs are clear. Interstitial pattern matches comparison. Heart and vasculature are normal . No measurable pleural effusion and no pneumothorax. No acute bony abnormality seen. No acute aortic findings suspected. IMPRESSION: No acute cardiopulmonary process. No significant change from comparison study.
[2021-08-06] MEDS ORDERED: MECLIZINE HCL 12.5 MG TAB ONE ×2 (09:24→13:22)
[2021-08-06] MEDS ORDERED: ONDANSETRON 4 MG/2 ML VIAL ONE (09:27)
--- NOTE | 2021-08-06 09:39 | RAD REPORT ---
EXAM DESCRIPTION: CT - Head Brain Wo Cont - 08/06/2021 9:33 am CLINICAL HISTORY: DIZZINESS, nausea and vomiting, history TIA COMPARISON: Head Brain Wo Cont dated 03/01/2020; Chest Single View dated 08/06/2021 TECHNIQUE: Axial 5 mm thick images of the head were obtained without IV contrast. All CT scans are performed using dose optimization technique as appropriate and may include automated exposure control or mA/KV adjustment according to patient size. FINDINGS: No intracranial hemorrhage, mass, edema or shift of mid-line structures. No acute infarcti on changes seen. No abnormal extra-axial fluid collections. Ventricles are normal. Mastoid air cells and visualized portions of the paranasal sinuses are clear. No acute bony findings. IMPRESSION: Negative non-contrast CT head examination for acute finding No significant change from 2019 study. Follow-up MR imaging could be performed if there are ongoing concerns for acute CVA.
[2021-08-06] MEDS ORDERED: POTASSIUM CL SA 10 MEQ TAB PO ONE (10:58)
--- NOTE | 2021-08-06 12:48 | RAD REPORT ---
EXAM DESCRIPTION: MRI - MRA Head Wo Cont - 08/06/2021 12:40 pm CLINICAL HISTORY: DIZZINESS CVA COMPARISON: No comparisons FINDINGS: 3D noncontrast [id number] MR angiography of the [place] was performed. No aneurysm, flow-limiting stenosis or vascular malformation is seen. Forward flow seen in codominant vertebral arteries. The visualized dural venous sinuses appear patent. IMPRESSION: No significant flow abnormality of the [place] is identified.
--- NOTE | 2021-08-06 12:53 | RAD REPORT ---
EXAM DESCRIPTION: MRI - MRA Neck W/Wo Cont - 08/06/2021 12:40 pm CLINICAL HISTORY: DIZZINESS COMPARISON: Brain W/Wo Cont dated 08/06/2021 FINDINGS: Contrast enhance 2D [id number] MR angiography of the neck vessels was performed. The bilateral carotid systems are widely patent. Moderate focal stenosis of the right vertebral arter y at its origin. The left vertebral artery is patent. Vertebral arteries are codominant. IMPRESSION: Widely patent bilateral carotid systems. Codominant vertebral arteries with moderate kevin nosis at the origin of the right vertebral artery.
--- NOTE | 2021-08-06 12:59 | RAD REPORT ---
EXAM DESCRIPTION: MRI - Brain W/Wo Cont - 08/06/2021 12:40 pm CLINICAL HISTORY: Dizziness COMPARISON: Head CT from 08/06/2021, head CT from 03/01/2020 TECHNIQUE: Sagittal T1-weighted images were obtained along with PD/heavily T2-weighted and T2-FLAIR images. Axial DWI and ADC mapping sequences were also obtained along with coronal heavily T2-weighted images were obtained. FINDINGS: No intracranial hemorrhage, mass or acute infarction. There is no edema or shift of midlin e structures. No extra-axial fluid collections. Garcia-matter/white matter junction is preserved. Signa l voids are seen as a normal finding in the major intracranial vessels. Mild chronic small vessel ischemic changes . Mild maxillary and ethmoid air cell thickening. IMPRESSION: No acute intracranial abnormality. Specifically, no evidence of acute infarct. No abnorm al enhancement. Mild chronic small vessel ischemic changes.
--- NOTE | 2021-08-06 13:14 | ER ---
Nurse's Notes [facility] Name: Soy Liu Age: 55 yrs Sex: Male : 1965 Arrival Date: 08/06/2021 Time: 08:28 Bed 6 Private MD: Diagnosis: Dizziness and giddiness;Other peripheral vertigo, bilateral Presentation: 08/06 08:35 Chief complaint: Patient states: CP and SOB since last night. +N/V EMS states: Aspirin ll1 324 mg PO, 1 nitro SL, and zofran 4mg IV given en route. 20 G L AC. Coronavirus screen: Vaccine status: Patient reports receiving the 2nd dose of the covid vaccine. Client denies travel out of the [place] in the last 14 days. difficulty breathing, Client presents with at least one sign or symptom that may indicate coronavirus-19. Standard/surgical mask placed on the client. Ebola Screen: Patient denies travel to an Ebola-affected area in the 21 days before illness onset. Initial Sepsis Screen: Does the patient meet any 2 criteria? No. Patient's initial sepsis screen is negative. Does the patient have a suspected source of infection? No. Patient's initial sepsis screen is negative. Risk Assessment: Do you want to hurt yourself or someone else? Patient reports no desire to harm self or others. Onset of symptoms was August 05, 2021. 08:35 Method Of Arrival: EMS ll1 08:35 Acuity: JANIS 3 ll1 Historical: - Allergies: 08:34 No Known Allergies; ll1 - PMHx: 08:34 Hypertension; ll1 - PSHx: 08:34 Unable to Obtain; ll1 - Immunization history:: Client reports receiving the 2nd dose of the Covid vaccine. - Social history:: Smoking status: Patient denies any tobacco usage or history of. Screenin:56 Abuse screen: Denies threats or abuse. Nutritional screening: No deficits noted. ll1 Tuberculosis screening: No symptoms or risk factors identified. Fall Risk IV access (20 points). Gait- Weak (10 pts.). Total Galarza Fall Scale indicates Low Risk Score (25-44 pts). Fall prevention measures have been instituted. Side Rails Up X 2 Placed close to Nursing Station Frequent Obs/Assesments occuring Family Present and informed to notify staff if they need to leave bedside As available Patient and Family Educated on Fall Prevention Program and strategies. Assessment: 08:58 General: Appears uncomfortable, ill, Behavior is calm, cooperative, appropriate for ll1 age. Pain: Denies pain. Pain: Pain does not radiate. Pain began 1 day ago. Neuro: No deficits noted. Cardiovascular: Reports chest pain, shortness of breath, Heart tones S1 S2 Capillary refill < 3 seconds Clubbing of nail beds is absent Patient's skin is warm and dry. Rhythm is sinus rhythm. 10:00 Reassessment: No changes from previously documented assessment. Patient and/or family ll1 updated on plan of care and expected duration. Pain level reassessed. Patient is alert, oriented x 3, equal unlabored respirations, skin warm/dry/pink. 11:00 Reassessment: No changes from previously documented assessment. Patient and/or family ll1 updated on plan of care and expected duration. Pain level reassessed. Patient is alert, oriented x 3, equal unlabored respirations, skin warm/dry/pink. Patient states feeling better. 12:00 Reassessment: No changes from previously documented assessment. Patient and/or family ll1 updated on plan of care and expected duration. Pain level reassessed. Patient is alert, oriented x 3, equal unlabored respirations, skin warm/dry/pink. 13:00 Reassessment: No changes from previously documented assessment. Patient and/or family ll1 updated on plan of care and expected duration. Pain level reassessed. Patient is alert, oriented x 3, equal unlabored respirations, skin warm/dry/pink. 14:01 Reassessment: ambulated to bathroom and back. Slow, but steady. Still feels dizziness. ll1 States he doesn't feel like he is well enough to go home. Dr. Camejo informed. . 15:00 Reassessment: No changes from previously documented assessment. Patient and/or family ll1 updated on plan of care and expected duration. Pain level reassessed. Patient is alert, oriented x 3, equal unlabored respirations, skin warm/dry/pink. 16:00 Reassessment: No changes from previously documented assessment. Patient and/or family ll1 updated on plan of care and expected duration. Pain level reassessed. Patient is alert, oriented x 3, equal unlabored respirations, skin warm/dry/pink. Vital Signs: 08:34 BP 149 / 92; Pulse 70; Resp 15; Temp 97.5; cs9 08:58 Pulse Ox 93% ; ll1 11:04 BP 136 / 76; Pulse 67; Resp 18; Pulse Ox 96% ; ll1 13:24 BP 135 / 87; Pulse 66; Resp 17; Pulse Ox 96% on R/A; ll1 14:34 BP 148 / 83; Pulse 60; Resp 18; Pulse Ox 97% on R/A; ll1 15:44 BP 148 / 101; Pulse 60; Resp 18; Pulse Ox 96% on R/A; ll1 16:20 BP 135 / 99; Pulse 64; Resp 18; Pulse Ox 95% ; ll1 14:34 still feels dizzy and weak with ambulaion. Gait is slow, but steady. ll1 ED Course: 08:28 Patient arrived in ED. am2 08:31 Yemi Camejo MD is Attending Physician. kdr 08:34 Carlos Ivan, RN is Primary Nurse. ll1 08:34 Arm band placed on Patient placed in an exam room, on a stretcher. ll1 08:37 Triage completed. ll1 08:38 Maintain EMS IV. Dressing intact. Good blood return noted. Site clean \T\ dry. Gauge \T\ ll 1 site: 20 G L AC. 08:41 EKG done, by ED staff, reviewed by Yemi Camejo MD. gd 08:45 XRAY Chest (1 view) In Process Unspecified. EDMS 08:55 Carlos Ivan, RN is Primary Nurse. ll1 08:56 Patient has correct armband on for positive identification. Bed in low position. Call ll1 light in reach. Side rails up X 1. court monitor on. Pulse ox on. NIBP on. 09:00 Patient maintains SpO2 saturation greater than 95% on room air. ll1 09:33 CT Head Brain wo Cont In Process Unspecified. EDMS 12:40 MRA Head Wo Cont In Process Unspecified. EDMS 12:40 Brain W/Wo Cont In Process Unspecified. EDMS 12:40 MRA Neck W/Wo Cont In Process Unspecified. EDMS 14:36 Diet: Patient given snack. Patient given water. sandwich meal pack. ll1 16:21 IV discontinued, intact, bleeding controlled, No redness/swelling at site. Pressure ll1 dressing applied. 16:21 No provider procedures requiring assistance completed. ll1 Administered Medications: 09:28 Drug: Meclizine 25 mg Route: PO; ll1 11:04 Follow up: Response: No adverse reaction; RASS: Alert and Calm (0) ll1 09:36 Drug: Zofran (Ondansetron) 4 mg Route: IVP; Site: left antecubital; ll1 11:04 Follow up: Response: No adverse reaction; Nausea is decreased; RASS: Alert and Calm (0) ll1 11:04 Drug: Potassium Chloride Liquid 40 mEq Route: PO; ll1 13:25 Follow up: Response: No adverse reaction ll1 13:25 Drug: Meclizine 25 mg Route: PO; ll1 16:22 Follow up: Response: No adverse reaction ll1 13:25 Drug: Valium (diazepam) 5 mg Route: PO; ll1 16:22 Follow up: Response: No adverse reaction ll1 14:33 Drug: NS 0.9% 500 ml Route: IV; Rate: bolus; Site: right antecubital; ll1 16:21 Follow up: Response: No adverse reaction; IV Status: Completed infusion; IV Intake: ll1 500ml Intake: 16:21 IV: 500ml; Total: 500ml. ll1 Outcome: 13:14 Discharge ordered by . kdr 16:21 Discharged to home ambulatory. ll1 16:21 Condition: stable 16:21 Discharge instructions given to patient, family, Instructed on discharge instructions, follow up and referral plans. no drinking with medication, no driving heavy equipment, medication usage, Demonstrated understanding of instructions, follow-up care, medications, Prescriptions given X 2. 16:25 Patient left the ED. iw Signatures: Dispatcher [employer] EDMS Yemi Camejo MD MD kdr Rosalind Wren RN RN iw Kaylie Mercado Lynsay, RN RN [email or web address] Lida Galindo Rodrigo Pineda Corrections: (The following items were deleted from the chart) 08:42 08:41 EKG done, by ED staff, violeta gd 09:28 08:35 Chief complaint: Patient states: CP and SOB since last night. EMS states: Aspirin ll1 324 mg PO, 1 nitro SL, and zofran 4mg IV given en route. 20 G L AC ll1
--- NOTE | 2021-08-06 13:14 | EDPHYS ---
Physician Documentation [facility] Name: Soy Liu Age: 55 yrs Sex: Male : 1965 Arrival Date: 08/06/2021 Time: 08:28 Bed 6 Private MD: ED Physician Yemi Camejo HPI: 08/06 09:41 This 55 yrs old Male presents to ER via EMS with complaints of Dizziness and kdr vomiting. 09:41 The patient presents with dizziness, generalized weakness, feeling off balance, kdr vertigo. Onset: The symptoms/episode began/occurred last night. Context: occurred at home, occurred while the patient was at rest, just prior to the episode the patient experienced no apparent symptoms. Modifying factors: The symptoms are alleviated by closing eyes, holding head still, lying down, the symptoms are aggravated by movement of head, standing up, changing position. Associated signs and symptoms: Pertinent positives: nausea, vomiting, Pertinent negatives: agitation, ataxia, blurred vision, chest pain, combativeness, confusion, diaphoresis, focal weakness, headache, near-syncope, numbness, palpitations, , seizure. Historical: - Allergies: 08:34 No Known Allergies; ll1 - PMHx: 08:34 Hypertension; ll1 - PSHx: 08:34 Unable to Obtain; ll1 - Immunization history:: Client reports receiving the 2nd dose of the Covid vaccine. - Social history:: Smoking status: Patient denies any tobacco usage or history of. ROS: 09:41 Constitutional: Negative for fever, chills, and weight loss, Eyes: Negative for injury, kdr pain, redness, and discharge, Neck: Negative for injury, pain, and swelling, Cardiovascular: Negative for chest pain, palpitations, and edema, Respiratory: Negative for shortness of breath, cough, wheezing, and pleuritic chest pain, Abdomen/GI: Negative for abdominal pain, nausea, vomiting, diarrhea, and constipation, Back: Negative for injury and pain, : Negative for injury, bleeding, discharge, and swelling, MS/Extremity: Negative for injury and deformity, Skin: Negative for injury, rash, and discoloration, Psych: Negative for depression, anxiety, suicide ideation, homicidal ideation, and hallucinations, Allergy/Immunology: Negative for hives, rash, and allergies, Endocrine: Negative for neck swelling, polydipsia, polyuria, polyphagia, and marked weight changes, Hematologic/Lymphatic: Negative for swollen nodes, abnormal bleeding, and unusual bruising. 09:41 Neuro: Positive for dizziness, Negative for altered mental status, gait disturbance, headache, hearing loss, loss of consciousness, numbness, seizure activity, speech changes, syncope, near syncope, tingling, tinnitus, tremor, visual changes, weakness. Exam: 09:41 Constitutional: This is a well developed, well nourished patient who is awake, alert, kdr and in no acute distress. Head/Face: Normocephalic, atraumatic. Eyes: Pupils equal round and reactive to light, extra-ocular motions intact. Lids and lashes normal. Conjunctiva and sclera are non-icteric and not injected. Cornea within normal limits. Periorbital areas with no swelling, redness, or edema. Neck: Trachea midline, no thyromegaly or masses palpated, and no cervical lymphadenopathy. Supple, full range of motion without nuchal rigidity, or vertebral point tenderness. No Meningismus. Chest/axilla: Normal chest wall appearance and motion. Nontender with no deformity. No lesions are appreciated. Cardiovascular: Regular rate and rhythm with a normal S1 and S2. No gallops, murmurs, or rubs. Normal PMI, no JVD. No pulse deficits. Respiratory: Lungs have equal breath sounds bilaterally, clear to auscultation and percussion. No rales, rhonchi or wheezes noted. No increased work of breathing, no retractions or nasal flaring. Abdomen/GI: Soft, non-tender, with normal bowel sounds. No distension or tympany. No guarding or rebound. No evidence of tenderness throughout. Back: No spinal tenderness. No costovertebral tenderness. Full range of motion. Skin: Warm, dry with normal turgor. Normal color with no rashes, no lesions, and no evidence of cellulitis. MS/ Extremity: Pulses equal, no cyanosis. Neurovascular intact. Full, normal range of motion. Psych: Awake, alert, with orientation to person, place and time. Behavior, mood, and affect are within normal limits. 09:44 Neuro: Orientation: to person, place, time, situation, Mentation: is normal, Memory: is kdr normal, Cranial nerves: grossly normal, Cerebellar function: no acute changes, Motor: is normal, Sensation: is normal, Gait: unable to assess. Vital Signs: 08:34 BP 149 / 92; Pulse 70; Resp 15; Temp 97.5; cs9 08:58 Pulse Ox 93% ; ll1 11:04 BP 136 / 76; Pulse 67; Resp 18; Pulse Ox 96% ; ll1 13:24 BP 135 / 87; Pulse 66; Resp 17; Pulse Ox 96% on R/A; ll1 14:34 BP 148 / 83; Pulse 60; Resp 18; Pulse Ox 97% on R/A; ll1 15:44 BP 148 / 101; Pulse 60; Resp 18; Pulse Ox 96% on R/A; ll1 16:20 BP 135 / 99; Pulse 64; Resp 18; Pulse Ox 95% ; ll1 14:34 still feels dizzy and weak with ambulaion. Gait is slow, but steady. ll1 MDM: 13:14 Patient medically screened. kdr 13:57 Data reviewed: vital signs, nurses notes, lab test result(s), radiologic studies. kdr Counseling: I had a detailed discussion with the patient and/or guardian regarding: the historical points, exam findings, and any diagnostic results supporting the discharge/admit diagnosis, lab results, radiology results, the need for outpatient follow up. 15:43 ED course: Just reevaluated the patient. He still feels poorly in general and overall kdr weak but without any other focal complaints. He had no nuchal rigidity or other signs of meningismus. He is somewhat dizzy with movement of his head left and right but not up and down. He otherwise has no focal deficits. I reviewed lab work and CT and MRI studies and informed the patient that none of those evidenced any reason for his current poor feeling. The patient was able to get up and go to the bathroom but felt weak at the time. He was without other focal complaints. He has had only about 150 have the 500 cc bolus will put the fluid on a pressure pump and infuse rapidly. I informed the patient that once the fluid was and I would reassess him at that time.. 08/06 08:34 Order name: Basic Metabolic Panel; Complete Time: 10:51 kdr 08/06 08:34 Order name: CBC with Diff; Complete Time: 10:51 kdr 12 08:34 Order name: LFT's; Complete Time: 10:51 kdr 12/02 08:34 Order name: Magnesium; Complete Time: 10:51 kdr 08/06 08:34 Order name: NT PRO-BNP; Complete Time: 10:51 kdr 08/06 08:34 Order name: PT-INR; Complete Time: 10:51 kdr 08/06 08:34 Order name: Troponin (emerg Dept Use Only); Complete Time: 10:51 kdr 08/06 08:34 Order name: XRAY Chest (1 view); Complete Time: 10:51 kdr 08/06 09:13 Order name: CT Head Brain wo Cont; Complete Time: 10:51 kdr 08/06 12:02 Order name: MRA Head Wo Cont; Complete Time: 13:02 EDMS 02 12:04 Order name: Brain W/Wo Cont; Complete Time: 13:02 EDMS 02 12:04 Order name: MRA Neck W/Wo Cont; Complete Time: 13:02 EDMS 1202 08:34 Order name: EKG; Complete Time: 08:34 kdr 08/06 08:34 Order name: Cardiac monitoring; Complete Time: 08:58 kdr 08/06 08:34 Order name: EKG - Nurse/Tech; Complete Time: 08:58 kdr 08/06 08:34 Order name: IV Saline Lock; Complete Time: 08:58 kdr 08/06 08:34 Order name: Labs collected and sent; Complete Time: 08:58 kdr 02 08:34 Order name: O2 Per Protocol; Complete Time: 08:58 kdr 08/06 08:34 Order name: O2 Sat Monitoring; Complete Time: 08:58 kdr Administered Medications: 09:28 Drug: Meclizine 25 mg Route: PO; ll1 11:04 Follow up: Response: No adverse reaction; RASS: Alert and Calm (0) ll1 09:36 Drug: Zofran (Ondansetron) 4 mg Route: IVP; Site: left antecubital; ll1 11:04 Follow up: Response: No adverse reaction; Nausea is decreased; RASS: Alert and Calm (0) ll1 11:04 Drug: Potassium Chloride Liquid 40 mEq Route: PO; ll1 13:25 Follow up: Response: No adverse reaction ll1 13:25 Drug: Meclizine 25 mg Route: PO; ll1 16:22 Follow up: Response: No adverse reaction ll1 13:25 Drug: Valium (diazepam) 5 mg Route: PO; ll1 16:22 Follow up: Response: No adverse reaction ll1 14:33 Drug: NS 0.9% 500 ml Route: IV; Rate: bolus; Site: right antecubital; ll1 16:21 Follow up: Response: No adverse reaction; IV Status: Completed infusion; IV Intake: ll1 500ml Disposition Summary: 08/06/21 13:14 Discharge Ordered Location: Home kdr Problem: new kdr Symptoms: have improved kdr Condition: Stable kdr Diagnosis - Dizziness and giddiness kdr - Other peripheral vertigo, bilateral kdr Followup: kdr - With: Private Physician - When: 2 - 3 days - Reason: If symptoms return, Further diagnostic work-up, Recheck today's complaints, Continuance of care, Re-evaluation by your physician Discharge Instructions: - Discharge Summary Sheet kdr - Vertigo, [id number] kdr - Dizziness, [id number] kdr Forms: - Medication Reconciliation Form kdr - Thank You Letter kdr Prescriptions: - Meclizine 25 mg Oral Tablet - take 1 tablet by ORAL route every 8 hours As needed; 30 tablet; Refills: 0, kdr Product Selection Permitted - Valium 2 mg Oral Tablet - take 1 tablet by ORAL route every 8 hours As needed; 20 tablet; Refills: 0, kdr Product Selection Permitted Signatures: Dispatcher [employer] EDMS Yemi Camejo MD MD kdr Carlos Ivan RN RN ll1 Corrections: (The following items were deleted from the chart) 09:45 09:41 Constitutional: This is a well developed, well nourished patient who is awake, kdr alert, and in no acute distress. Head/Face: Normocephalic, atraumatic. Eyes: Pupils equal round and reactive to light, extra-ocular motions intact. Lids and lashes normal. Conjunctiva and sclera are non-icteric and not injected. Cornea within normal limits. Periorbital areas with no swelling, redness, or edema. Neck: Trachea midline, no thyromegaly or masses palpated, and no cervical lymphadenopathy. Supple, full range of motion without nuchal rigidity, or vertebral point tenderness. No Meningismus. Chest/axilla: Normal chest wall appearance and motion. Nontender with no deformity. No lesions are appreciated. Cardiovascular: Regular rate and rhythm with a normal S1 and S2. No gallops, murmurs, or rubs. Normal PMI, no JVD. No pulse deficits. Respiratory: Lungs have equal breath sounds bilaterally, clear to auscultation and percussion. No rales, rhonchi or wheezes noted. No increased work of breathing, no retractions or nasal flaring. Abdomen/GI: Soft, non-tender, with normal bowel sounds. No distension or tympany. No guarding or rebound. No evidence of tenderness throughout. Back: No spinal tenderness. No costovertebral tenderness. Full range of motion. Skin: Warm, dry with normal turgor. Normal color with no rashes, no lesions, and no evidence of cellulitis. MS/ Extremity: Pulses equal, no cyanosis. Neurovascular intact. Full, normal range of motion. Neuro: Awake and alert, GCS 15, oriented to person, place, time, and situation. Cranial nerves II-XII grossly intact. Motor strength 5/5 in all extremities. Sensory grossly intact. Cerebellar exam normal. Normal gait. Psych: Awake, alert, with orientation to person, place and time. Behavior, mood, and affect are within normal limits. kdr 12:02 09:15 MR STROKE PROTOCOL+MRI.RAD.BRZ ordered. EDMS EDMS
[2021-08-06] MEDS ORDERED: DIAZEPAM 5 MG TABLET ONE (13:22)
[2021-08-06] MEDS ORDERED: NA CHLORIDE 0.9% 500 ML ONE (14:18)
[2021-08-06 16:30] VITALS: TEMP 97.5
[2021-08-06 16:41] VITALS: BP 135/99; O2SAT 95
--- NOTE | 2021-08-08 12:42 | EKG ---
Test Date: 2021-08-06 Test Time: 08:38:54 [employer] Science Professor: ROSCOE MEASUREMENT RESULTS: Intervals: Rate: 66 DE: 158 QRSD: 94 QT: 412 QTc: 431 [place]: P: 61 DE: 158 QRS: 42 T: 16 INTERPRETIVE STATEMENTS: Normal sinus rhythm Normal ECG Compared to ECG 03/01/2020 08:46:51 No significant changes Electronically Signed On 08-08-21 12:36:10 REPRODUCTIVE ENDOCRINOLOGIST by Margarito Diez
== END 2021-08-06 16:25 | disposition home or self-care (01) ==
LOC: ER 08:27
DX: R42 Dizziness and giddiness (principal); H81.393 Other peripheral vertigo, bilateral; I10 Essential (primary) hypertension
CPT/HCPCS: 96361; 93005; 85025; 80048; 36415; 83735; 85610; 80076; 84484; 83880; 70450; 71045; 70553; 70544; 70549; 96374; 99285; A9577; J7040; J2405

== ENCOUNTER 2021-11-12 22:51 | Observation (INO) | payer OTHER ==
--- OUTSIDE RECORDS SUMMARY | 2021-11-12 22:55 | XMS REPORT | Continuity of Care Document ---
:1965 Author Organization [facility] t Address [address] [place] [address] [address]. [address] [place] [address] Care Team Providers Name Role Phone Philip Colby [facility] Primary Care Physic malika Ibiktarah GLASS ENAMEL MIXER, F Attending Clinician Payers Payer Name Policy Type Policy Number Effective Date Expiration Date S Center'd [id number] 2017 NON-CONTRACT 00:00:00 GENERIC Problems Condition Condition Condition Status Onset Resolution Last Treating Co mments Source Name Details Category Date Date Treatment Clinician Date No known No known Disease Unive rs active active ity of problems problems [facility] Allergies, Adverse Reactions, Alerts Allergy Allergy Status Severity Reaction(s) Onset Inactive Treating Comm ents Source Name Type Date Date Clinician NO KNOWN Drug Active Univers ALLERGIE Class ity of S [facility] Social History Social Habit Start Date Stop Date Quantity Comments Source Exposure to Not sure [facility] SARS-CoV-2 (event) Medica l Branch Sex Ass[birth year] [facility] 00:00:00 00:00:00 [facility] Smoking Status Start Date Stop Date Source Unknown if ever smoked [facility] Medications Ordered Filled Start Stop Current Ordering [...] 30 mg 00 :00 1 dose, Medical [place] [facility] 05/17/21 at 1330, CONNIE
Fa culty [...] 30 mg 00 :00 1 dose, Medical [place] [facility] 05/17/21 at 1330, CONNIE
Fa culty member approving Restricted medication : DWAYNE [place] cyclobenzap Yes [id number] 10mg Take 1 Univers rine 10 mg 9-12 tablet by ity of tablet 00:00: mouth 3 [place] 00 (three) Medical times Branch daily as needed for Muscle Spasms. ibuprofen Yes [id number] 800mg Take 1 Univers 800 mg 9-12 tablet by ity of tablet 00:00: mouth [place] 00 every 6 Medical (six) Branch hours as needed for Pain (scale 4-6). cyclobenzap Yes [id number] 10mg Take 1 Univers rine 10 mg 9-12 tablet by ity of tablet 00:00: mouth 3 [place] 00 (three) Medical times Branch daily as needed for Muscle Spasms. ibuprofen Yes [id number] 800mg Take 1 Univers 800 mg 9-12 [...] 1 Uni vers (TESSALON 2-09 capsule by ity of [email or web address]) 100 00:00: mouth [place] mg capsule 00 [...] 1 Uni vers (TESSALON 2-09 capsule by itsameer [email or web address]) 100 00:00: mouth [place] mg capsule 00 every 8 Medica l (eight) Branch hours as needed for Cough. Vital Signs Vital Name Observation Time Observation Value Comments Source Systolic blood 2021-05-17 17:07:58 138 mm[Hg] [facility] Diastolic blood 2021-05-17 17:07:58 94 mm[Hg] [facility] Heart rate 2021-05-17 17:07:58 75 /min [facility] Body temperature 2021-05-17 17:07:58 36.94 [facility] Respiratory rate 2021-05-17 17:07:58 17 /min [facility] Body height 2021-05-17 17:05:00 170.2 cm [facility] Body weight 2021-05-17 17:05:00 117.935 kg [facility] BMI 2021-05-17 17:05:00 40.72 kg/m2 [facility] Oxygen saturation in 2021-05-17 17:05:00 96 /min [facility] Arterial blood by [facility] Pulse oximetry Branch Procedures Procedure Date / Time Performed Performing Clinician Sourc e XR LUMBAR SPINE 3 VW 2021-05-17 17:50:14 [facility] 2021-05-17 17:37:00 [facility] 2021-05-17 16:46:48 Doctor Unassigned, No Un [facility] DIAGNOSIS AND Name Medical Branch TREATMENT Encounters Start End Encounter Admission Attending Care Care Encounter Source Date/Time Date/Time Type Type Clinicians Facility Department ID 2021-05-17 2021-05-17 Emergency Lizet [facility] [id number] Univers 12:20:00 13:32:00 Dwayne Colby [place] [id number] [facility] [id number] [facility] [id number] [facility] 084 Branch 2021-05-17 2021-05-17 Emergency X [facility] ERT [id number] Univers 11:46:00 11:46:00 [facility] Results Test Description Test Time Test Comments Results Result Comments Source URINALYSIS 2021-05-17 17:51:37 Test Item Value Reference Range Interpretation Comme nts APPEARANCE (test code = Clear Clear 0234092630) COLOR (test code = 4712500679) Yellow Yellow PH (test code = 5036782296) 4.8-8.0 SP GRAVITY (test code = 1.003-1.030 1568441720) GLU U QUAL (test code = Normal Normal 2570970303) BLOOD (test code = 8948605711) Negative Negative KETONES (test code = 4994264526) Negative Negative PROTEIN (test code = 2887-8) Negative Negative UROBILIN (test code = Normal Normal 4718611091) BILIRUBIN (test code = Negative Negative 8345353384) NITRITE (test code = 8191227090) Negative Negative LEUK SADIQ (test code = Negative Negative 0017708419) RBC/HPF (test code = 0612657602) See_Comment [Automated message] The system which ge nerated this result transmit sinai reference range: 0 - 3 HP F. The reference range was not used to interpret th is result as normal/abnormal . WBC/HPF (test code = 7691263130) See_Comment [Automated message] The system which ge nerated this result transmit sinai reference range: 0 - 5 HP F. The reference range was not used to interpret th is result as normal/abnormal . BACTERIA (test code = Negative Negative 1221996130) MUCOUS (test code = 6399633041) Slight Negative LPF A SQ EPITH (test code = <1 HPF 5941654338) Lab Interpretation (test code = Abnormal 51987-2) [facility]37 Test Item Value Reference Range Interpretation Comments APPEARANCE (test code = Clear Clear 1636974853) COLOR (test code = Yellow Yellow 3003440598) PH (test code = 4.8-8.0 8897581601) SP GRAVITY (test code = 1.003-1.030 3296342326) GLU U QUAL (test code = Normal Normal 8517201850) BLOOD (test code = Negative Negative 5585926570) KETONES (test code = Negative Negative 0999160969) PROTEIN (test code = Negative Negative 2887-8) UROBILIN (test code = Normal Normal 5179806587) BILIRUBIN (test code = Negative Negative 8549062411) NITRITE (test code = Negative Negative 7874978789) LEUK SADIQ (test code = Negative Negative 2221961402) RBC/HPF (test code = See_Comment [Autom ated message] 1836646637) The system [employer] generated this result transmitted ref erence range: 0 - 3 HP F. The reference range was not used to int erpret this result as normal/abnormal . WBC/HPF (test code = See_Comment [Autom ated message] 0179393731) The system [employer] generated this result transmitted ref erence range: 0 - 5 HP F. The reference range was not used to int erpret this result as normal/abnormal . BACTERIA (test code = Negative Negative 0829797643) MUCOUS (test code = Slight Negative LPF A 6462626800) SQ EPITH (test code = <1 HPF 1905330759) Lab Interpretation (test Abnormal code = 09160-4) [facility]
[2021-11-12] MEDS ORDERED: MORPHINE 4 MG/ML SYR ONE (23:44)
[2021-11-12] MEDS ORDERED: ONDANSETRON 4 MG/2 ML VIAL ONE (23:44)
[2021-11-12] MEDS ORDERED: NA CHLORIDE 0.9% 1,000 ML ONE (23:44)
[2021-11-13 00:16] LABS: Absolute Lymphocytes (CBC) 2.9 K/uL (0.7-4.9); Hematocrit 40.8 % (39.6-49.0); Lymphocytes % 29.4 % (15.3-44.8); MPV 9.4 fL (7.6-11.3); RBC Red Blood Cell Count 4.32 M/uL (4.33-5.43)
[2021-11-13 00:23] LABS: Protime INR 0.95
[2021-11-13 00:35] LABS: Potassium 3.3 mmol/L (3.5-5.1)
[2021-11-13 00:47] LABS: Troponin High Sensitivity 86.3 pg/mL (<58.9)
[2021-11-13] MEDS ORDERED: HYDROMORPHONE HCL 1 MG/ML INJ ONE (01:37)
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
[2021-11-13] MEDS ORDERED: ASPIRIN 81 MG CHEWABLE TABLET ONE (02:13)
[2021-11-13] MEDS ORDERED: ACETAMINOPHEN 500 MG TAB ONE ×2 (02:14→02:21)
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
[2021-11-13] MEDS ORDERED: MORPHINE 4 MG/ML SYR IV PRN (05:07)
[2021-11-13] MEDS ORDERED: ASPIRIN 81 MG CHEWABLE TABLET PO ONE (05:07)
[2021-11-13] MEDS ORDERED: ACETAMINOPHEN 500 MG TAB PO PRN (05:07)
[2021-11-13] MEDS ORDERED: ONDANSETRON 4 MG/2 ML VIAL IV PRN (06:00)
[2021-11-13 06:21] LABS: Absolute Lymphocytes (CBC) 2.5 K/uL (0.7-4.9); Lymphocytes % 33.9 % (15.3-44.8); MPV 8.9 fL (7.6-11.3); RBC Red Blood Cell Count 4.21 M/uL (4.33-5.43)
[2021-11-13 06:42] LABS: Albumin 3.2 g/dL (3.4-5.0); Bilirubin Total 0.6 mg/dL (0.2-1.0); Magnesium 2.2 mg/dL (1.8-2.4); Potassium 3.6 mmol/L (3.5-5.1); Protein, Total 6.8 g/dL (6.4-8.2)
[2021-11-13 06:43] VITALS: BMI 36.2
[2021-11-13 06:45] LABS: Thyroid Stimulating Hormone 4.21 uIU/mL (0.360-3.740)
[2021-11-13 06:46] LABS: Troponin High Sensitivity 94.6 pg/mL (<58.9)
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
[2021-11-13] MEDS ORDERED: SODIUM CHLORIDE 0.9% 10ML INJ IV PRN (08:13)
[2021-11-13] MEDS ORDERED: PANTOPRAZOLE 40 MG INJ IVP SCH (09:00)
[2021-11-13] MEDS ORDERED: ENOXAPARIN 40 MG/0.4 ML SQ SCH (09:00)
[2021-11-13] MEDS ORDERED: MORPHINE 4 MG/ML SYR ONE (10:00)
[2021-11-13] MEDS ORDERED: ENOXAPARIN 60 MG/0.6 ML SQ ONE (10:04)
[2021-11-13] MEDS ORDERED: ENOXAPARIN 40 MG/0.4 ML SQ ONE (10:13)
[2021-11-13] MEDS ORDERED: HYDRALAZINE HCL 20 MG/ML VIAL IV PRN (11:22)
[2021-11-13] MEDS ORDERED: HYDRALAZINE HCL 20 MG/ML VIAL ONE (11:39)
--- NOTE | 2021-11-13 13:09 | EKG ---
Test Date: 2021-11-12 Test Time: 23:08:41 Oil Gauger: LL MEASUREMENT RESULTS: Intervals: Rate: 79 LA: 144 QRSD: 94 QT: 364 QTc: 417 [place]: P: 60 LA: 144 QRS: 15 T: 37 INTERPRETIVE STATEMENTS: Normal sinus rhythm Normal ECG Compared to ECG 08/06/2021 08:38:54 No significant changes Electronically Signed On 11-13-21 13:08:00 CLINICAL ORTHOPTIST by Margarito Diez
--- NOTE | 2021-11-13 13:18 | ECHO ---
HEIGHT: 5 ft 11 in WEIGHT: 259 lb 15.858 oz DATE OF STUDY: 11/13/[address]: Margarito Diez MD 2-DIMENSIONAL: YES M.MODE: YES DOPPLER: YES COLOR FLOW: YES TDS: NO PORTABLE: NO DEFINITY: NO BUBBLE STUDY: NO DIAGNOSIS: CHEST PAIN CARDIAC HISTORY: CATHERIZATION: SURGERY: PROSTHETIC VALVE: PACEMAKER: MEASUREMENTS (cm) DIASTOLIC (NORMALS) SYSTOLIC (NORMALS) IVSd 1.3 (0.6-1.2) LA Diam 3.8 (1.9-4.0) LVEF 62% LVIDd 3.8 (3.5-5.7) LVIDs 2.6 (2.0-3.5) %FS 33% LVPWd 1.4 (0.6-1.2) Ao Diam 2.9 (2.0-3.7) 2 DIMENSIONAL ASSESSMENT: RIGHT ATRIUM: NORMAL LEFT ATRIUM: NORMAL RIGHT VENTRICLE: NORMAL LEFT VENTRICLE: NORMAL TRICUSPID VALVE: NORMAL MITRAL VALVE: NORMAL PULMONIC VALVE: NORMAL AORTIC VALVE: NORMAL PERICARDIAL EFFUSION: NONE AORTIC ROOT: NORMAL LEFT VENTRICULAR WALL MOTION: NORMAL DOPPLER/COLOR FLOW: NORMAL COMMENTS: NORMAL 2D ECHOCARDIOGRAM WITH DOPPLER. NO WALL MOTION ABNORMALITY. NO EFFUSION. TECHNOLOGIST: Ashley VIZCARRA
[2021-11-13 13:22] VITALS: BP 138/86; TEMP 98.1
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
[2021-11-13 17:41] VITALS: O2SAT 100
[2021-11-13] MEDS ORDERED: ATORVASTATIN 40 MG TAB PO SCH (21:00)
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
== END 2021-11-13 17:09 | disposition home or self-care (01) ==
LOC: ER 22:51 → ERHOLD 11-13 03:02
PROVIDERS: ADMIT Internal Medicine; ATTEND Internal Medicine
DX: R07.9 Chest pain, unspecified (principal); R77.8 Other specified abnormalities of plasma proteins; M25.562 Pain in left knee; M25.561 Pain in right knee; M54.9 Dorsalgia, unspecified; M79.603 Pain in arm, unspecified; V85.5XXA Driver of special construction vehicle injured in nontraffic accident, initial encounter; Y92.69 Other specified industrial and construction area as the place of occurrence of the external cause; Y99.0 Civilian activity done for income or pay; I10 Essential (primary) hypertension; E78.2 Mixed hyperlipidemia; K21.9 Gastro-esophageal reflux disease without esophagitis; E66.01 Morbid (severe) obesity due to excess calories; Z68.36 Body mass index [BMI] 36.0-36.9, adult; Z79.82 Long term (current) use of aspirin; Z79.899 Other long term (current) drug therapy; Z91.14 Patient's other noncompliance with medication regimen; Z20.822 Contact with and (suspected) exposure to COVID-19
CPT/HCPCS: 96361; 93005; 93306; 85025 ×2; 80048; 36415; 86900; 83735; 86850; 82550; 85610; 80061; 82565; 86901; 85730; 84443; 84484 ×3; 82553; 84439; 80053; 70450; 72125; 71260; 74177; 73560 ×2; 96375; 96374; 99285; U0003; Q9967; J0360; J1650; J1170; J7030; J2405

== ENCOUNTER 2023-01-06 14:06 | Observation (INO) | payer OTHER ==
--- OUTSIDE RECORDS SUMMARY | 2023-01-06 14:12 | XMS REPORT | Continuity of Care Document ---
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 2017 NON-CONTRACT 00:00:00 GENERIC Problems Condition Condition Condition Status Onset Resolution Last Treating Co mments Source Name Details Category Date Date Treatment Clinician Date No known No known Disease Unive rs active active ity of problems problems [facility] Allergies, Adverse Reactions, Alerts Allergy Allergy Status Severity Reaction(s) Onset Inactive Treating Comm ents Source Name Type Date Date Clinician NO KNOWN Drug Active Univers ALLERGIE Class ity of S [facility] Social History Social Habit Start Date Stop Date Quantity Comments Source Exposure to Not sure [facility] SARS-CoV-2 (event) Medica l Branch Sex Assigned At [birth year] [facility] 00:00:00 00:00:00 [facility] Smoking Status Start Date Stop Date Source Unknown if ever smoked [facility] Medications Ordered Filled Start Stop Current Ordering Indication Dosage Frequency Signature Comments Components Source Medication Medication Date Date Medication? Clinician (SIG) Name Name TAKE 1 2022-0 No TABLET BY 8-22 MOUTH 00:00: DIRECTED 30 00 MINUTES PRIOR TO INTERCOURSE TAKE 1 2-0 No TABLET BY 8-22 MOUTH 00:00: DIRECTED 30 00 MINUTES PRIOR TO INTERCOURSE TAKE 1 2-0 No TABLET BY 8-22 MOUTH 00:00: DIRECTED 30 00 MINUTES PRIOR TO INTERCOURSE TAKE 1 2-0 No TABLET BY 8-22 MOUTH 00:00: DIRECTED 30 00 MINUTES PRIOR TO INTERCOURSE atorvastati 2022-0 No 1mg n 20 mg 6-06 tablet 00:00: 00 metformin 2022-0 No 1mg 500 mg 6-06 tablet 00:00: 00 Bromfed DM 2022-0 No 10mg/5 2 mg-30 6-06 mL mg-10 mg/5 00:00: mL oral 00 syrup Dose 2-0 No Unknown 6-06 00:00: 00 atorvastati 2022-0 No 1mg n 20 mg 6-06 tablet 00:00: 00 metformin 2022-0 No 1mg 500 mg 6-06 tablet 00:00: 00 Bromfed DM 2022-0 No 10mg/5 2 mg-30 6-06 mL mg-10 mg/5 00:00: mL oral 00 syrup Dose 2022-0 No Unknown 6-06 00:00: 00 atorvastati 2022-0 No 1mg n 20 mg 6-06 tablet 00:00: 00 metformin 2022-0 No 1mg 500 mg 6-06 tablet 00:00: 00 Bromfed DM 2022-0 No 10mg/5 2 mg-30 6-06 mL mg-10 mg/5 00:00: mL oral 00 syrup Dose 2022-0 No Unknown 6-06 00:00: 00 atorvastati 2022-0 No 1mg n 20 mg 6-06 tablet 00:00: 00 metformin 2022-0 No 1mg 500 mg 6-06 tablet 00:00: 00 Bromfed DM 2022-0 No 10mg/5 2 mg-30 6-06 mL mg-10 mg/5 00:00: mL oral 00 syrup Dose 2022-0 No Unknown 6-06 00:00: 00 Viagra 50 2022-0 No 1mg mg tablet 5-06 00:00: 00 Dose 2022-0 No Unknown 5-06 00:00: 00 Dose 2022-0 No Unknown 5- 00:00: 00 Dose 2022-0 No Unknown 5- 00:00: 00 Viagra 50 2-0 No 1mg mg tablet 01-08 00:00: 00 Dose 2022-0 No Unknown 5 00:00: 00 Dose 2022-0 No Unknown 5 00:00: 00 Dose 2022-0 No Unknown 5 00:00: 00 Viagra 50 2-0 No 1mg mg tablet 01-08 00:00: 00 Dose 2022-0 No Unknown 5 00:00: 00 Dose 2022-0 No Unknown 5 00:00: 00 Dose 2022-0 No Unknown 5 00:00: 00 Viagra 50 2-0 No 1mg mg tablet 01-08 00:00: 00 Dose 2022-0 No Unknown 5 00:00: 00 Dose 2022-0 No Unknown 5 00:00: 00 Dose 2-0 No Unknown 5- 00:00: 00 lisinopril 2-0 No 2mg 20 1-11 mg-hydrochl 00:00: orothiazide 00 25 mg tablet Dose 2-0 No Unknown 1- 00:00: 00 lisinopril 2022-0 No 2mg 20 1-11 mg-hydrochl 00:00: orothiazide 00 25 mg tablet Dose 2-0 No Unknown 1-11 00:00: 00 lisinopril 2022-0 No 2mg 20 1-11 mg-hydrochl 00:00: orothiazide 00 25 mg tablet Dose 2-0 No Unknown 1-11 00:00: 00 lisinopril 2022-0 No 2mg 20 1-11 mg-hydrochl 00:00: orothiazide 00 25 mg tablet Dose 2-0 No Unknown -11 00:00: 00 dexamethaso 2020-0 2020- No 10mg 10 mg, Uni vers ne 05-17 Oral, ity of (DECADRON 18:30: 17:32 ONCE, [place] 00 :00 dose, Sun Medi snehal injection 05/17/21 at Bran ch 10 mg 1330, Routine ketorolac 2020- No 30mg 30 mg, Unive rs (TORADOL) 9-12 09-12 Intramuscu ity of injection 18:30: 17:31 lar, ONCE, [place] 30 mg 00 :00 1 dose, Medical [place] [facility] 05/17/21 at 1330, CONNIE
Fa culty member approving Restricted medication : CRISTOFER DWAYNE Lasha dexamethaso 2020- No 10mg 10 mg, Uni vers ne 05-17 Oral, ity of (DECADRON 18:30: 17:32 [place]CE, [place] 00 :00 dose, Sun Medi snehal injection 05/17/21 at Bran ch 10 mg 1330, Routine ketorolac 2020- No 30mg 30 mg, Unive rs (TORADOL) 05-17 Intramuscu ity of injection 18:30: 17:31 lar, ONCE, [place] 30 mg 00 :00 1 dose, Medical [place] [facility] 05/17/21 at 1330, CONNIE
Fa culty member approving Restricted medication : DWAYNE [place] Lasha cyclobenzap Yes [id number] 10mg Take 1 Univers rine 10 mg 9-12 tablet by ity of tablet 00:00: mouth 3 [place] 00 (three) Medical times Branch daily as needed for Muscle Spasms. ibuprofen Yes [id number] 800mg Take 1 Univers 800 mg 9-12 tablet by ity of tablet 00:00: mouth [place] 00 every 6 Medical (six) Branch hours as needed for Pain (scale 4-6). cyclobenzap Yes [id number] 10mg Take 1 Univers rine 10 mg 9-12 tablet by ity of tablet 00:00: mouth 3 [place] 00 (three) Medical times Branch daily as needed for Muscle Spasms. ibuprofen Yes [id number] 800mg Take 1 Univers 800 mg 9-12 tablet by ity of tablet 00:00: mouth [place] 00 every 6 Medical (six) Branch hours as needed for Pain (scale 4-6). lisinopril No 2mg 20 6-08 mg-hydrochl 00:00: orothiazide 00 25 mg tablet Viagra 50 No 1mg mg tablet 6-08 00:00: 00 Dose 2021-0 No Unknown 6-08 00:00: 00 lisinopril 2021-0 No 2mg 20 6-08 mg-hydrochl 00:00: orothiazide 00 25 mg tablet Viagra 50 2021-0 No 1mg mg tablet 6 00:00: 00 Dose 2021-0 No Unknown 6 00:00: 00 lisinopril 2021-0 No 2mg 20 6-08 mg-hydrochl 00:00: orothiazide 00 25 mg tablet Viagra 50 2021-0 No 1mg mg tablet 6 00:00: 00 Dose 2021-0 No Unknown 6- 00:00: 00 lisinopril 2021-0 No 2mg 20 6-08 mg-hydrochl 00:00: orothiazide 00 25 mg tablet Viagra 50 2021-0 No 1mg mg tablet 02-10 00:00: 00 Dose 2021-0 No Unknown 6-08 00:00: 00 Dose 2021-0 No Unknown 4-07 00:00: 00 Dose 2021-0 No Unknown 4-07 00:00: 00 Dose 2021-0 No Unknown 4-07 00:00: 00 Dose 2021-0 No Unknown 4-07 00:00: 00 Dose 2021-0 No Unknown 4-07 00:00: 00 Dose 2021-0 No Unknown 4-07 00:00: 00 Dose 2021-0 No Unknown 4-07 00:00: 00 Dose 2021-0 No Unknown 4-07 00:00: 00 Dose 2021-0 No Unknown 1-06 00:00: 00 gemfibrozil 2021-0 No 1mg 600 mg 1-06 tablet 00:00: 00 Dose 2021-0 No Unknown 1-06 00:00: 00 Dose 2021-0 No Unknown 1-06 00:00: 00 Dose 2021-0 No Unknown 1-06 00:00: 00 gemfibrozil 2021-0 No 1mg 600 mg 1-06 tablet 00:00: 00 Dose 2021-0 No Unknown 1-06 00:00: 00 Dose 2021-0 No Unknown 1-06 00:00: 00 Dose 2021-0 No Unknown 1-06 00:00: 00 gemfibrozil 2021-0 No 1mg 600 mg 1-06 tablet 00:00: 00 Dose 1-0 No Unknown 1-06 00:00: 00 Dose 1-0 No Unknown 1-06 00:00: 00 Dose 1-0 No Unknown 1-06 00:00: 00 gemfibrozil 1-0 No 1mg 600 mg 1-06 tablet 00:00: 00 Dose 1-0 No Unknown 1-06 00:00: 00 Dose 1-0 No Unknown 1-06 00:00: 00 Dose 2019-1 No Unknown 0-02 00:00: 00 Dose 2019-1 No Unknown 0-02 00:00: 00 Dose 2019-1 No Unknown 0-02 00:00: 00 Dose 2019-1 No Unknown 0-02 00:00: 00 Dose 2019-1 No Unknown 0-02 00:00: 00 Dose 2019-1 No Unknown 0-02 00:00: 00 Dose 2019-1 No Unknown 0-02 00:00: 00 Dose 2019-1 No Unknown 0-02 00:00: 00 Dose 2019-1 No Unknown 0-02 00:00: 00 Dose 2019-1 No Unknown 0-02 00:00: 00 Dose 2019-1 No Unknown 0-02 00:00: 00 Dose 2019-1 No Unknown 0-02 00:00: 00 lisinopril 2019-0 No 2mg 20 6-16 mg-hydrochl 00:00: orothiazide 00 12.5 mg tablet ibuprofen 2019-0 No 1mg 800 mg 6-16 tablet 00:00: 00 Dose 2019-0 No Unknown 6-16 00:00: 00 lisinopril 2019-0 No 2mg 20 6-16 mg-hydrochl 00:00: orothiazide 00 12.5 mg tablet ibuprofen 2019-0 No 1mg 800 mg 6-16 tablet 00:00: 00 Dose 2020-0 No Unknown 6-16 00:00: 00 lisinopril 2020-0 No 2mg 20 6-16 mg-hydrochl 00:00: orothiazide 00 12.5 mg tablet ibuprofen 2020-0 No 1mg 800 mg 6-16 tablet 00:00: 00 Dose 2020-0 No Unknown 6-16 00:00: 00 lisinopril 2019-0 No 2mg 20 6-16 mg-hydrochl 00:00: orothiazide 00 12.5 mg tablet ibuprofen 2019-0 No 1mg 800 mg 6-16 tablet 00:00: 00 Dose 2020-0 No Unknown 6-16 00:00: 00 Dose 2020-0 No Unknown 2-14 00:00: 00 Dose 2020-0 No Unknown 2-14 00:00: 00 Dose 2020-0 No Unknown 2-14 00:00: 00 Dose 2020-0 No Unknown 2-14 00:00: 00 lisinopril 2020-0 No 2mg 20 2-10 mg-hydrochl 00:00: orothiazide 00 12.5 mg tablet nitroglycer 2020-0 No 1mg in 0.4 mg 2-10 sublingual 00:00: tablet 00 lisinopril 2020-0 No 2mg 20 2-10 mg-hydrochl 00:00: orothiazide 00 12.5 mg tablet lovastatin 2020-0 No 1mg 40 mg 2-10 tablet 00:00: 00 nitroglycer 2020-0 No 1mg in 0.4 mg 2-10 sublingual 00:00: tablet 00 lovastatin 2020-0 No 1mg 40 mg 2-10 tablet 00:00: 00 lisinopril 2020-0 No 2mg 20 2-10 mg-hydrochl 00:00: orothiazide 00 12.5 mg tablet nitroglycer 2020-0 No 1mg in 0.4 mg 2-10 sublingual 00:00: tablet 00 lovastatin 2020-0 No 1mg 40 mg 2-10 tablet 00:00: 00 lisinopril 2020-0 No 2mg 20 2-10 mg-hydrochl 00:00: orothiazide 00 12.5 mg tablet nitroglycer 2020-0 No 1mg in 0.4 mg 2-10 sublingual 00:00: tablet 00 lovastatin 2020-0 No 1mg 40 mg 2-10 tablet 00:00: 00 lovastatin 2018-1 No 1mg 40 mg 2-14 tablet 00:00: 00 lovastatin 2018-1 No 1mg 40 mg 2-14 tablet 00:00: 00 lovastatin 2018-1 No 1mg 40 mg 2-14 tablet 00:00: 00 lovastatin 2018-1 No 1mg 40 mg 2-14 tablet 00:00: 00 lisinopril 2018-1 No 2mg 20 2-12 mg-hydrochl 00:00: orothiazide 00 12.5 mg tablet lisinopril 2018-1 No 2mg 20 2-12 mg-hydrochl 00:00: orothiazide 00 12.5 mg tablet lisinopril 2018-1 No 2mg 20 2-12 mg-hydrochl 00:00: orothiazide 00 12.5 mg tablet lisinopril 2018-1 No 2mg 20 2-12 mg-hydrochl 00:00: orothiazide 00 12.5 mg tablet lisinopril 2018-0 No 2mg 20 5-16 mg-hydrochl 00:00: orothiazide 00 12.5 mg tablet simvastatin 2018-0 No 1mg 20 mg 5-16 tablet 00:00: 00 lisinopril 2018-0 No 2mg 20 5-16 mg-hydrochl 00:00: orothiazide 00 12.5 mg tablet simvastatin 2018-0 No 1mg 20 mg 5-16 tablet 00:00: 00 lisinopril 2018-0 No 2mg 20 5-16 mg-hydrochl 00:00: orothiazide 00 12.5 mg tablet simvastatin 2018-0 No 1mg 20 mg 5-16 tablet 00:00: 00 lisinopril 2018-0 No 2mg 20 5-16 mg-hydrochl 00:00: orothiazide 00 12.5 mg tablet simvastatin 2018-0 No 1mg 20 mg 5-16 tablet 00:00: 00 lisinopril 2018-0 No 2mg 20 4-16 mg-hydrochl 00:00: orothiazide 00 12.5 mg tablet lisinopril 2018-0 No 2mg 20 4-16 mg-hydrochl 00:00: orothiazide 00 12.5 mg tablet lisinopril 2018-0 No 2mg 20 4-16 mg-hydrochl 00:00: orothiazide 00 12.5 mg tablet lisinopril 2018-0 No 2mg 20 4-16 mg-hydrochl 00:00: orothiazide 00 12.5 mg tablet lovastatin 2018-0 No 1mg 20 mg 2-14 tablet 00:00: 00 lovastatin 2018-0 No 1mg 20 mg 2-14 tablet 00:00: 00 lovastatin 2018-0 No 1mg 20 mg 2-14 tablet 00:00: 00 lovastatin 2018-0 No 1mg 20 mg 2-14 tablet 00:00: 00 ondansetron 2018-0 Yes 4mg Take 1 Univ ers 4 mg 2-09 tablet by romie of disintegrat 00:00: mouth [place] ing tablet 00 every 8 Medica l (eight) Branch hours as needed for Nausea and Vomiting (N/V). benzonatate 2018-0 Yes 100mg Take 1 Uni vers (TESSALON 2-09 capsule by Ruby) 100 00:00: mouth [place] mg capsule 00 [...] 1 Uni vers (TESSALON 2-09 capsule by Ruby) 100 00:00: mouth [place] mg capsule 00 every 8 Medica l (eight) Branch hours as needed for Cough. lisinopril 2018-0 No 2mg 20 2-06 mg-hydrochl 00:00: orothiazide 00 12.5 mg tablet lisinopril 2018-0 No 2mg 20 2-06 mg-hydrochl 00:00: orothiazide 00 12.5 mg tablet lisinopril 2018-0 No 2mg 20 2-06 mg-hydrochl 00:00: orothiazide 00 12.5 mg tablet lisinopril 2018-0 No 2mg 20 2-06 mg-hydrochl 00:00: orothiazide 00 12.5 mg tablet lisinopril 2017-0 No 2mg 20 7-25 mg-hydrochl 00:00: orothiazide 00 12.5 mg tablet lisinopril 2017-0 No 2mg 20 7-25 mg-hydrochl 00:00: orothiazide 00 12.5 mg tablet lisinopril 2017-0 No 2mg 20 7-25 mg-hydrochl 00:00: orothiazide 00 12.5 mg tablet lisinopril 2017-0 No 2mg 20 7-25 mg-hydrochl 00:00: orothiazide 00 12.5 mg tablet lisinopril 2017-0 No 2mg 20 6-16 mg-hydrochl 00:00: orothiazide 00 12.5 mg tablet lisinopril 2017-0 No 2mg 20 6-16 mg-hydrochl 00:00: orothiazide 00 12.5 mg tablet lisinopril 2017-0 No 2mg 20 6-16 mg-hydrochl 00:00: orothiazide 00 12.5 mg tablet lisinopril 2017-0 No 2mg 20 6-16 mg-hydrochl 00:00: orothiazide 00 12.5 mg tablet lisinopril 2017-0 No 2mg 20 6-16 mg-hydrochl 00:00: orothiazide 00 12.5 mg tablet lisinopril 2017-0 No 2mg 20 6-16 mg-hydrochl 00:00: orothiazide 00 12.5 mg tablet lisinopril 2017-0 No 2mg 20 6-16 mg-hydrochl 00:00: orothiazide 00 12.5 mg tablet lisinopril 2017-0 No 2mg 20 6-16 mg-hydrochl 00:00: orothiazide 00 12.5 mg tablet lisinopril 2016-0 No 2mg 20 2-03 mg-hydrochl 00:00: orothiazide 00 12.5 mg tablet lisinopril 2016-0 No 2mg 20 2-03 mg-hydrochl 00:00: orothiazide 00 12.5 mg tablet lisinopril 2016-0 No 2mg 20 2-03 mg-hydrochl 00:00: orothiazide 00 12.5 mg tablet lisinopril 2016-0 No 2mg 20 2-03 mg-hydrochl 00:00: orothiazide 00 12.5 mg tablet nitroglycer 2014-0 No 1mg in 0.4 mg 7-07 sublingual 00:00: tablet 00 nitroglycer 2014-0 No 1mg in 0.4 mg 7-07 sublingual 00:00: tablet 00 nitroglycer 2015-0 No 1mg in 0.4 mg 7-07 sublingual 00:00: tablet 00 nitroglycer 2015-0 No 1mg in 0.4 mg 7-07 sublingual 00:00: tablet 00 nitroglycer 2015-0 No 1mg in 0.4 mg 7-07 sublingual 00:00: tablet 00 nitroglycer 2015-0 No 1mg in 0.4 mg 7-07 sublingual 00:00: tablet 00 nitroglycer 2014-0 No 1mg in 0.4 mg 7-07 sublingual 00:00: tablet 00 nitroglycer 2014-0 No 1mg in 0.4 mg 7-07 sublingual 00:00: tablet 00 lisinopril 2015-0 No 2mg 20 7-03 mg-hydrochl 00:00: orothiazide 00 12.5 mg tablet lisinopril 2015-0 No 2mg 20 7-03 mg-hydrochl 00:00: orothiazide 00 12.5 mg tablet lisinopril 2015-0 No 2mg 20 7-03 mg-hydrochl 00:00: orothiazide 00 12.5 mg tablet lisinopril 2015-0 No 2mg 20 7-03 mg-hydrochl 00:00: orothiazide 00 12.5 mg tablet lisinopril 2015-0 No 2mg 20 3-21 mg-hydrochl 00:00: orothiazide 00 12.5 mg tablet lisinopril 2015-0 No 2mg 20 3-21 mg-hydrochl 00:00: orothiazide 00 12.5 mg tablet lisinopril 2015-0 No 2mg 20 3-21 mg-hydrochl 00:00: orothiazide 00 12.5 mg tablet lisinopril 2015-0 No 2mg 20 3-21 mg-hydrochl 00:00: orothiazide 00 12.5 mg tablet Catapres 2015-0 No 1mg 0.1 mg 3-19 tablet 00:00: 00 Catapres 2015-0 No 1mg 0.1 mg 3-19 tablet 00:00: 00 Catapres 2015-0 No 1mg 0.1 mg 3-19 tablet 00:00: 00 Catapres 2015-0 No 1mg 0.1 mg 3-19 tablet 00:00: 00 lisinopril 2015-0 No 1mg 10 3-12 mg-hydrochl 00:00: orothiazide 00 12.5 mg tablet lisinopril 2015-0 No 1mg 10 3-12 mg-hydrochl 00:00: orothiazide 00 12.5 mg tablet lisinopril 2015-0 No 1mg 10 3-12 mg-hydrochl 00:00: orothiazide 00 12.5 mg tablet lisinopril 2015-0 No 1mg 10 3-12 mg-hydrochl 00:00: orothiazide 00 12.5 mg tablet Vital Signs Vital Name Observation Time Observation Value Comments Source Systolic blood 2021-05-17 17:07:58 138 mm[Hg] [facility] Diastolic blood 2021-05-17 17:07:58 94 mm[Hg] Unive rsity of pressure [facility] Heart rate 2021-05-17 17:07:58 75 /min Universi ty [facility] Body temperature 2021-05-17 17:07:58 36.94 [place] Univ ersity of [facility] Respiratory rate 2021-05-17 17:07:58 17 /[facility] Body height 2021-05-17 17:05:00 170.2 cm Universi ty of [facility] Body weight 2021-05-17 17:05:00 117.935 kg Universi ty [facility] BMI 2021-05-17 17:05:00 40.72 kg/m2 [facility] Oxygen saturation in 2021-05-17 17:05:00 96 /min [facility] Arterial blood by [facility] Pulse oximetry Branch BP Systolic 2022-07-06 13:15:00 162 mm[Hg] BP Diastolic 2022-07-06 13:15:00 105 mm[Hg] Weight Measured 2022-07-06 13:15:00 274.30 pounds Height Measured 2022-07-06 13:15:00 67.50 inches Body Temperature 2022-07-06 13:15:00 98.70 degrees Heart Rate 2022-07-06 13:15:00 74.00 /min Respiratory Rate 2022-07-06 13:15:00 18.00 /min BP Systolic 2022-06-29 11:08:00 139 mm[Hg] BP Diastolic 2022-06-29 11:08:00 86 mm[Hg] Weight Measured 2022-06-29 11:08:00 273.00 pounds Height Measured 2022-06-29 11:08:00 67.50 inches Body Temperature 2022-06-29 11:08:00 97.30 degrees Heart Rate 2022-06-29 11:08:00 78.00 /min Respiratory Rate 2022-06-29 11:08:00 18.00 /min BP Systolic 2022-06-23 10:34:00 142 mm[Hg] BP Diastolic 2022-06-23 10:34:00 87 mm[Hg] Weight Measured 2022-06-23 10:34:00 273.20 pounds Height Measured 2022-06-23 10:34:00 67.50 inches Body Temperature 2022-06-23 10:34:00 98.10 degrees Heart Rate 2022-06-23 10:34:00 74.00 /min Respiratory Rate 2022-06-23 10:34:00 24.00 /min BP Systolic 2022-05-27 14:32:00 BP Diastolic 2022-05-27 14:32:00 Weight Measured 2022-05-27 14:32:00 264.40 pounds Height Measured 2022-05-27 14:32:00 67.50 inches Body Temperature 2022-05-27 14:32:00 Heart Rate 2022-05-27 14:32:00 Respiratory Rate 2022-05-27 14:32:00 Heart Rate 2022-02-08 11:33:00 92.00 /min Respiratory Rate 2022-02-08 11:33:00 18.00 /min BP Systolic 2022-02-08 11:33:00 132 mm[Hg] BP Diastolic 2022-02-08 11:33:00 93 mm[Hg] Weight Measured 2022-02-08 11:33:00 264.40 pounds Height Measured 2022-02-08 11:33:00 67.50 inches Body Temperature 2022-02-08 11:33:00 98.10 degrees BP Systolic 2022-02-02 11:27:00 144 mm[Hg] BP Diastolic 2022-02-02 11:27:00 84 mm[Hg] Weight Measured 2022-02-02 11:27:00 272.00 pounds Height Measured 2022-02-02 11:27:00 67.50 inches Body Temperature 2022-02-02 11:27:00 98.50 degrees Heart Rate 2022-02-02 11:27:00 94.00 /min Respiratory Rate 2022-02-02 11:27:00 BP Systolic 2021-02-10 16:00:00 121 mm[Hg] BP Diastolic 2021-02-10 16:00:00 75 mm[Hg] Weight Measured 2021-02-10 16:00:00 267.20 pounds Height Measured 2021-02-10 16:00:00 67.50 inches Body Temperature 2021-02-10 16:00:00 98.00 degrees Heart Rate 2021-02-10 16:00:00 79.00 /min Respiratory Rate 2021-02-10 16:00:00 21.00 /min BP Systolic 2020-12-10 17:21:00 179 mm[Hg] BP Diastolic 2020-12-10 17:21:00 110 mm[Hg] Weight Measured 2020-12-10 17:21:00 267.00 pounds Height Measured 2020-12-10 17:21:00 67.50 inches Body Temperature 2020-12-10 17:21:00 98.40 degrees Heart Rate 2020-12-10 17:21:00 76.00 /min Respiratory Rate 2020-12-10 17:21:00 16.00 /min BP Systolic 2020-09-10 17:24:00 147 mm[Hg] BP Diastolic 2020-09-10 17:24:00 100 mm[Hg] Weight Measured 2020-09-10 17:24:00 258.40 pounds Height Measured 2020-09-10 17:24:00 67.50 inches Body Temperature 2020-09-10 17:24:00 98.40 degrees Heart Rate 2020-09-10 17:24:00 95.00 /min Respiratory Rate 2020-09-10 17:24:00 17.00 /min BP Systolic 2020-02-19 15:24:00 136 mm[Hg] BP Diastolic 2020-02-19 15:24:00 84 mm[Hg] Weight Measured 2020-02-19 15:24:00 260.40 pounds Height Measured 2020-02-19 15:24:00 67.50 inches Body Temperature 2020-02-19 15:24:00 98.50 degrees Heart Rate 2020-02-19 15:24:00 83.00 /min Respiratory Rate 2020-02-19 15:24:00 16.00 /min BP Systolic 2019-10-15 13:46:00 168 mm[Hg] BP Diastolic 2019-10-15 13:46:00 104 mm[Hg] Weight Measured 2019-10-15 13:46:00 271.40 pounds Height Measured 2019-10-15 13:46:00 67.50 inches Body Temperature 2019-10-15 13:46:00 99.00 degrees Heart Rate 2019-10-15 13:46:00 80.00 /min Respiratory Rate 2019-10-15 13:46:00 16.00 /min BP Systolic 2018-08-16 14:43:00 165 mm[Hg] BP Diastolic 2018-08-16 14:43:00 94 mm[Hg] Weight Measured 2018-08-16 14:43:00 Height Measured 2018-08-16 14:43:00 Body Temperature 2018-08-16 14:43:00 Heart Rate 2018-08-16 14:43:00 Respiratory Rate 2018-08-16 14:43:00 BP Systolic 2018-08-16 14:42:00 170 mm[Hg] BP Diastolic 2018-08-16 14:42:00 145 mm[Hg] Weight Measured 2018-08-16 14:42:00 260.80 pounds Height Measured 2018-08-16 14:42:00 67.50 inches Body Temperature 2018-08-16 14:42:00 97.70 degrees Heart Rate 2018-08-16 14:42:00 76.00 /min Respiratory Rate 2018-08-16 14:42:00 16.00 /min Procedures Procedure Date / Time Performed Performing Clinician Sourc e XR LUMBAR SPINE 3 VW 2021-05-17 17:50:14 Dwayne Cleveland [facility] URINALYSIS 2021-05-17 17:37:00 Dwayne Cleveland [facility] CONSENT/REFUSAL FOR 2021-05-17 16:46:48 Doctor Unassigned, No Un [facility] DIAGNOSIS AND Name [facility] TREATMENT Ekg 2018-08-16 00:00:00 51557 Ecg Routine Ecg 2017-10-11 00:00:00 W/least 12 Lds W/i r Plan of Care Planned Activity Planned Date Details Comments Source Goal Plan of Care Note [code = 49209-4] Goal Plan of Care Note [code = 36628-0] Goal Plan of Care Note [code = 44645-5] Goal Plan of Care Note [code = 24901-0] Goal Plan of Care Note [code = 05567-0] Goal Plan of Care Note [code = 42399-2] Goal Plan of Care Note [code = 46903-2] Goal Plan of Care Note [code = 62509-8] Goal Plan of Care Note [code = 81908-1] Goal Plan of Care Note [code = 59402-9] Goal Plan of Care Note [code = 02598-2] Goal Plan of Care Note [code = 62608-5] Goal Plan of Care Note [code = 52720-6] Goal Plan of Care Note [code = 56663-9] Goal Plan of Care Note [code = 73800-9] Goal Plan of Care Note [code = 63148-9] Goal Plan of Care Note [code = 84824-5] Goal Plan of Care Note [code = 46005-4] Goal Plan of Care Note [code = 52624-7] Goal Plan of Care Note [code = 96873-0] Goal Plan of Care Note [code = 16457-9] Goal Plan of Care Note [code = 22065-8] Goal Plan of Care Note [code = 54981-7] Goal Plan of Care Note [code = 13020-8] Goal Plan of Care Note [code = 48976-4] Goal Plan of Care Note [code = 39522-1] Goal Plan of Care Note [code = 59530-6] Goal Plan of Care Note [code = 49704-6] Goal Plan of Care Note [code = 22430-8] Goal Plan of Care Note [code = 71272-4] Goal Plan of Care Note [code = 22101-4] Goal Plan of Care Note [code = 86830-6] Goal Plan of Care Note [code = 50045-0] Goal Plan of Care Note [code = 88363-7] Goal Plan of Care Note [code = 64932-2] Goal Plan of Care Note [code = 00727-3] Goal Plan of Care Note [code = 03213-9] Goal Plan of Care Note [code = 37512-0] Goal Plan of Care Note [code = 45361-4] Goal Plan of Care Note [code = 43330-0] Goal Plan of Care Note [code = 35955-5] Goal Plan of Care Note [code = 12288-0] Goal Plan of Care Note [code = 73856-6] Goal Plan of Care Note [code = 01292-6] Goal Plan of Care Note [code = 01925-3] Goal Plan of Care Note [code = 13392-2] Goal Plan of Care Note [code = 75905-0] Goal Plan of Care Note [code = 77067-6] Goal Plan of Care Note [code = 12671-4] Goal Plan of Care Note [code = 77179-7] Goal Plan of Care Note [code = 36582-3] Goal Plan of Care Note [code = 66958-2] Goal Plan of Care Note [code = 79609-3] Goal Plan of Care Note [code = 38616-1] Goal Plan of Care Note [code = 93647-4] Goal Plan of Care Note [code = 41296-1] Goal Plan of Care Note [code = 92596-2] Goal Plan of Care Note [code = 59088-5] Goal Plan of Care Note [code = 34320-3] Goal Plan of Care Note [code = 64525-3] Goal Plan of Care Note [code = 45945-0] Goal Plan of Care Note [code = 98478-2] Goal Plan of Care Note [code = 19323-7] Goal Plan of Care Note [code = 83584-4] Goal Plan of Care Note [code = 46372-8] Goal Plan of Care Note [code = 91777-2] Goal Plan of Care Note [code = 92756-7] Goal Plan of Care Note [code = 42895-1] Goal Plan of Care Note [code = 08650-3] Goal Plan of Care Note [code = 20131-7] Goal Plan of Care Note [code = 85779-5] Goal Plan of Care Note [code = 92448-8] Goal Plan of Care Note [code = 28307-7] Goal Plan of Care Note [code = 89680-1] Goal Plan of Care Note [code = 20715-3] Goal Plan of Care Note [code = 02734-8] Goal Plan of Care Note [code = 07594-9] Goal Plan of Care Note [code = 53274-5] Goal Plan of Care Note [code = 33271-3] Goal Plan of Care Note [code = 11448-5] Goal Plan of Care Note [code = 79081-7] Goal Plan of Care Note [code = 71433-8] Goal Plan of Care Note [code = 00859-6] Goal Plan of Care Note [code = 29811-1] Goal Plan of Care Note [code = 07447-4] Goal Plan of Care Note [code = 07303-6] Goal Plan of Care Note [code = 66997-2] Goal Plan of Care Note [code = 06131-9] Goal Plan of Care Note [code = 17101-8] Goal Plan of Care Note [code = 01718-4] Goal Plan of Care Note [code = 36368-0] Goal Plan of Care Note [code = 95268-8] Goal Plan of Care Note [code = 73152-1] Encounters Start End Encounter Admission Attending Care Care Encounter Source Date/Time Date/Time Type Type Clinicians Facility Department ID 2022-12-30 2022-12-30 Outpatient SFA SFA 023 [place] 11:51:08 11:51:08 0427 [facility] 2022-12-21 2022-12-21 Outpatient SFA SFA 023 Philip 11:35:05 11:35:05 0418 [facility] 2022-11-29 2022-11-29 Outpatient SFA SFA 023 Philip 10:35:36 10:35:36 0327 [facility] 2022-11-17 2022-11-17 Outpatient SFA SFA 023 Philip 16:24:03 16:24:03 0315 [facility] 2022-11-03 2022-11-03 Outpatient SFA SFA 023 Philip 13:33:54 13:33:54 0301 [facility] 2022-11-01 2022-11-01 Outpatient SFA SFA 023 Philip 11:06:48 11:06:48 0227 [facility] 2022-10-20 2022-10-20 Outpatient SFA SFA 023 Philip 09:10:03 09:10:03 0215 [facility] 2022-10-19 2022-10-19 Outpatient LEXY ALEMAN [id number] Lexy 16:00:00 16:00:00 ANTONIO malone 2022-10-15 2022-10-15 Outpatient LEXY ALEMAN [id number] Lexy 08:30:00 08:30:00 ANTONIO malone 2022-08-02 2022-08-02 Outpatient SFA SFA 022 Philip 09:56:02 09:56:02 1128 F [place] 2022-07-19 2022-07-19 Outpatient SFA SFA Philip 10:54:12 10:54:12 1114 F [place] 2022-07-12 2022-07-12 Outpatient SFA SFA Philip 13:01:10 13:01:10 1107 F [place] 2022-07-06 2022-07-06 Outpatient SFA SFA Philip 14:38:17 14:38:17 1101 F [place] 2022-07-06 2022-07-06 Outpatient [id number]- [id number]-[id number] 00:00:00 00:00:00 Visit 58u1-8pgf 7g8-8pvg-7 -8lc0-7xz bd6-2ad3ca [id number] 2d7802 2022-06-29 2022-06-29 Outpatient SFA SFA Philip 11:06:43 11:06:43 1025 [place] 2022-06-29 2022-06-29 Outpatient [id number]- [id number] df 932f8j-8 00:00:00 00:00:00 Visit 2d08-2sz2 c85-7oq7-9 -8803-d8e 803-d8eb86 j95504h9x 062b7a 2022-06-23 2022-06-23 Outpatient SFA SFA Philip 10:34:08 10:34:08 1019 F [place] 2022-06-23 2022-06-23 Outpatient [id number]- [id number] 9d 47v612-1 00:00:00 00:00:00 Visit 91b5-424c 9s1-191z-u -z990-g19 [id number] 7047-09-29 2022-06-03 Outpatient SFA SFA Philip 11:37:54 11:37:54 0929 F [place] 2022-05-27 2022-05-27 Outpatient [id number]- [id number] 6c 1aeb69-0 00:00:00 00:00:00 Visit 6g6h-37r5 t1k-09t8-s -o83x-ztx 05a-ecbd1c [id number] 8916-09-12 2021-05-17 Emergency [place], [facility] [id number] [facility] 12:20:00 13:32:00 Dwayne Pickens 350.1.13.10 ity [facility] 4.2.7.2.686 [facility] [id number] [facility] [address] 2021-05-17 2021-05-17 Emergency X [facility] ERT [id number] [facility] 11:46:00 11:46:00 ity [facility] Results Test Description Test Time Test Comments Results Result Comments Source TESTOSTERONE 2022-06-30 06:44:59 Test Item Value Reference Range Interpretation Comme nts TESTOSTERONE (test code = 2830) 181 NG/DL 300-890 L UNLESS OTHERWISE INDICATED, ALL TESTING PERFORM ED ATCLINICAL PATHOLOGY [employer] [address] [place] [address] LABORATORY DIRE CTOR: DIAMOND ODELL M.D. CLIA NUMBER [id number] [facility] [place]. [id number] 00:00:00 Test Item Value Reference Range Interpretation Comments TESTOSTERONE (test code = 2830) 181 NG/DL [id number] 00:00:00 Test Item Value Reference Range Interpretation Comments TESTOSTERONE (test code = 2830) 181 NG/DL TSH, THIRD [id number] 06:46:28 Test Item Value Reference Range Interpretation Comments TSH, THIRD GENERATION (test code 2.570 UIU/ML 0.400-4.100 = 2821) SEDIMENTATION [id number] 06:44:10 Test Item Value Reference Range Interpretation Comments SEDIMENTATION RATE (test code = 16 MM/HOUR 0-15 H 1017) [id number] 05:48:38 Test Item Value Reference Range Interpretation Comments TESTOSTERONE (test code = 2830) 173 NG/DL 300-890 L C-REACTIVE [id number] 05:06:35 Test Item Value Reference Range Interpretation Comments C-REACTIVE PROTEIN (test code = 0.7 MG/DL <0.5 H 3513) [id number] 04:49:21 Test Item Value Reference Range Interpretation Comments CREATININE (test 1.07 MG/DL 0.80-1.40 code = 2214) eGFR (2020 CKD-EPI) 81 ML/MIN/1.73 >60 UNLES S OTHERWISE (test code = 35082) INDICATE D, ALL TESTING PERFORM ED ATCLINICAL PATH OLOGY LABORATORIES, [place]. [address] [facility] [place] [address] LOCATED WITHIN [facility] DIRECTOR: DIAMOND ODELL M.D. CLIA NUMBER [id number] [facility] [place] O. [id number] CBC W/AUTO DIFF WITH [id number] 04:05:47 Test Item Value Reference Range Interpretation Comments WBC (test code = 8.9 K/UL 3.5-11.0 1001) RBC (test code = 4.60 M/UL 4.50-6.10 1002) HEMOGLOBIN (test code 15.1 G/DL 13.5-17.0 = 1003) HEMATOCRIT (test code 43.3 % 40.0-51.0 = 1004) MCV (test code = 94.1 fL 80.0-99.0 1005) MCH (test code = 32.8 PG 25.0-33.0 1006) MCHC (test code = 34.9 G/DL 31.0-36.0 1007) RDW (test code = 12.4 % 11.5-15.0 1038) NEUTROPHILS (test 62.0 % code = 1008) LYMPHOCYTES (test 27.1 % code = 1010) MONOCYTES (test code 6.7 % = 1011) EOSINOPHILS (test 3.0 % code = 1012) BASOPHILS (test code 0.7 % = 1013) IMMATURE GRANULOCYTES 0.5 % (test code = 1036) NUCLEATED RBCS (test 0.0 /100 WBC'S See_Comment [Aut omated code = 1065) message] The sy stem which generated this result transmitted reference range : 0.0. The refere nce range was not u sed to interpret th is result as normal/abnormal . PLATELET COUNT (test 276 K/UL 130-400 code = 1015) ABSOLUTE NEUTROPHILS 5.51 K/UL 1.50-7.50 (test code = 1066) ABSOLUTE LYMPHOCYTES 2.40 K/UL 1.00-4.00 (test code = 1067) ABSOLUTE MONOCYTES 0.59 K/UL 0.20-1.00 (test code = 1068) ABSOLUTE EOSINOPHILS 0.27 K/UL 0.00-0.50 (test code = 1040) ABSOLUTE BASOPHILS 0.06 K/UL 0.00-0.20 (test code = 1069) ABS IMMATURE 0.04 K/UL 0.00-0.10 GRANULOCYTES (test code = 1020) ABS NUCLEATED RBCS 0.00 K/UL 0.00-0.11 (test code = 17000) CBC W/AUTO [id number] 00:00:00 Test Item Value Reference Range Interpretation Comments WBC (test code = 1001) 8.9 K/UL RBC (test code = 1002) 4.60 M/UL HEMOGLOBIN (test code = 1003) 15.1 G/DL HEMATOCRIT (test code = 1004) 43.3 % MCV (test code = 1005) 94.1 fL MCH (test code = 1006) 32.8 PG MCHC (test code = 1007) 34.9 G/DL RDW (test code = 1038) 12.4 % NEUTROPHILS (test code = 1008) 62.0 % LYMPHOCYTES (test code = 1010) 27.1 % MONOCYTES (test code = 1011) 6.7 % EOSINOPHILS (test code = 1012) 3.0 % BASOPHILS (test code = 1013) 0.7 % IMMATURE GRANULOCYTES (test 0.5 % code = 1036) NUCLEATED RBCS (test code = 0.0 /100WBC'S 1065) PLATELET COUNT (test code = 276 K/UL 1015) ABSOLUTE NEUTROPHILS (test code 5.51 K/UL = 1066) ABSOLUTE LYMPHOCYTES (test code 2.40 K/UL = 1067) ABSOLUTE MONOCYTES (test code = 0.59 K/UL 1068) ABSOLUTE EOSINOPHILS (test code 0.27 K/UL = 1040) ABSOLUTE BASOPHILS (test code = 0.06 K/UL 1069) ABS IMMATURE GRANULOCYTES (test 0.04 K/UL code = 1020) ABS NUCLEATED RBCS (test code = 0.00 K/UL 40266) CBC W/AUTO [id number] 00:00:00 Test Item Value Reference Range Interpretation Comments WBC (test code = 1001) 8.9 K/UL RBC (test code = 1002) 4.60 M/UL HEMOGLOBIN (test code = 1003) 15.1 G/DL HEMATOCRIT (test code = 1004) 43.3 % MCV (test code = 1005) 94.1 fL MCH (test code = 1006) 32.8 PG MCHC (test code = 1007) 34.9 G/DL RDW (test code = 1038) 12.4 % NEUTROPHILS (test code = 1008) 62.0 % LYMPHOCYTES (test code = 1010) 27.1 % MONOCYTES (test code = 1011) 6.7 % EOSINOPHILS (test code = 1012) 3.0 % BASOPHILS (test code = 1013) 0.7 % IMMATURE GRANULOCYTES (test 0.5 % code = 1036) NUCLEATED RBCS (test code = 0.0 /100WBC'S 1065) PLATELET COUNT (test code = 276 K/UL 1015) ABSOLUTE NEUTROPHILS (test code 5.51 K/UL = 1066) ABSOLUTE LYMPHOCYTES (test code 2.40 K/UL = 1067) ABSOLUTE MONOCYTES (test code = 0.59 K/UL 1068) ABSOLUTE EOSINOPHILS (test code 0.27 K/UL = 1040) ABSOLUTE BASOPHILS (test code = 0.06 K/UL 1069) ABS IMMATURE GRANULOCYTES (test 0.04 K/UL code = 1020) ABS NUCLEATED RBCS (test code = 0.00 K/UL 51697) CBC W/AUTO [id number] 00:00:00 Test Item Value Reference Range Interpretation Comments WBC (test code = 1001) 8.9 K/UL RBC (test code = 1002) 4.60 M/UL HEMOGLOBIN (test code = 1003) 15.1 G/DL HEMATOCRIT (test code = 1004) 43.3 % MCV (test code = 1005) 94.1 fL MCH (test code = 1006) 32.8 PG MCHC (test code = 1007) 34.9 G/DL RDW (test code = 1038) 12.4 % NEUTROPHILS (test code = 1008) 62.0 % LYMPHOCYTES (test code = 1010) 27.1 % MONOCYTES (test code = 1011) 6.7 % EOSINOPHILS (test code = 1012) 3.0 % BASOPHILS (test code = 1013) 0.7 % IMMATURE GRANULOCYTES (test 0.5 % code = 1036) NUCLEATED RBCS (test code = 0.0 /100WBC'S 1065) PLATELET COUNT (test code = 276 K/UL 1015) ABSOLUTE NEUTROPHILS (test code 5.51 K/UL = 1066) ABSOLUTE LYMPHOCYTES (test code 2.40 K/UL = 1067) ABSOLUTE MONOCYTES (test code = 0.59 K/UL 1068) ABSOLUTE EOSINOPHILS (test code 0.27 K/UL = 1040) ABSOLUTE BASOPHILS (test code = 0.06 K/UL 1069) ABS IMMATURE GRANULOCYTES (test 0.04 K/UL code = 1020) ABS NUCLEATED RBCS (test code = 0.00 K/UL 63088) [id number] 00:00:00 Test Item Value Reference Range Interpretation Comments TESTOSTERONE (test code = 2830) 173 NG/DL [id number] 00:00:00 Test Item Value Reference Range Interpretation Comments TESTOSTERONE (test code = 2830) 173 NG/DL TSH, THIRD [id number] 00:00:00 Test Item Value Reference Range Interpretation Comments TSH, THIRD GENERATION (test code 2.570 UIU/ML = 2821) TSH, THIRD [id number] 00:00:00 Test Item Value Reference Range Interpretation Comments TSH, THIRD GENERATION (test code 2.570 UIU/ML = 2821) TSH, THIRD [id number] 00:00:00 Test Item Value Reference Range Interpretation Comments TSH, THIRD GENERATION (test code 2.570 UIU/ML = 2821) SEDIMENTATION [id number] 00:00:00 Test Item Value Reference Range Interpretation Comments SEDIMENTATION RATE (test code = 16 MM/HOUR 1017) SEDIMENTATION [id number] 00:00:00 Test Item Value Reference Range Interpretation Comments SEDIMENTATION RATE (test code = 16 MM/HOUR 1017) C-REACTIVE [id number] 00:00:00 Test Item Value Reference Range Interpretation Comments C-REACTIVE PROTEIN (test code = 0.7 MG/DL 3513) C-REACTIVE [id number] 00:00:00 Test Item Value Reference Range Interpretation Comments C-REACTIVE PROTEIN (test code = 0.7 MG/DL 3513) [id number] 00:00:00 Test Item Value Reference Range Interpretation Comments CREATININE (test code = 2214) 1.07 MG/DL eGFR (2020 CKD-EPI) (test code 81 ML/MIN/1.73 = 83682) [id number] 00:00:00 Test Item Value Reference Range Interpretation Comments CREATININE (test code = 2214) 1.07 MG/DL eGFR (2020 CKD-EPI) (test code 81 ML/MIN/1.73 = 38792) CBC W/AUTO [id number] 00:00:00 Test Item Value Reference Range Interpretation Comments WBC (test code = 1001) 8.9 K/UL RBC (test code = 1002) 4.60 M/UL HEMOGLOBIN (test code = 1003) 15.1 G/DL HEMATOCRIT (test code = 1004) 43.3 % MCV (test code = 1005) 94.1 fL MCH (test code = 1006) 32.8 PG MCHC (test code = 1007) 34.9 G/DL RDW (test code = 1038) 12.4 % NEUTROPHILS (test code = 1008) 62.0 % LYMPHOCYTES (test code = 1010) 27.1 % MONOCYTES (test code = 1011) 6.7 % EOSINOPHILS (test code = 1012) 3.0 % BASOPHILS (test code = 1013) 0.7 % IMMATURE GRANULOCYTES (test 0.5 % code = 1036) NUCLEATED RBCS (test code = 0.0 /100WBC'S 1065) PLATELET COUNT (test code = 276 K/UL 1015) ABSOLUTE NEUTROPHILS (test code 5.51 K/UL = 1066) ABSOLUTE LYMPHOCYTES (test code 2.40 K/UL = 1067) ABSOLUTE MONOCYTES (test code = 0.59 K/UL 1068) ABSOLUTE EOSINOPHILS (test code 0.27 K/UL = 1040) ABSOLUTE BASOPHILS (test code = 0.06 K/UL 1069) ABS IMMATURE GRANULOCYTES (test 0.04 K/UL code = 1020) ABS NUCLEATED RBCS (test code = 0.00 K/UL 23727) CBC W/AUTO [id number] 00:00:00 Test Item Value Reference Range Interpretation Comments WBC (test code = 1001) 8.9 K/UL RBC (test code = 1002) 4.60 M/UL HEMOGLOBIN (test code = 1003) 15.1 G/DL HEMATOCRIT (test code = 1004) 43.3 % MCV (test code = 1005) 94.1 fL MCH (test code = 1006) 32.8 PG MCHC (test code = 1007) 34.9 G/DL RDW (test code = 1038) 12.4 % NEUTROPHILS (test code = 1008) 62.0 % LYMPHOCYTES (test code = 1010) 27.1 % MONOCYTES (test code = 1011) 6.7 % EOSINOPHILS (test code = 1012) 3.0 % BASOPHILS (test code = 1013) 0.7 % IMMATURE GRANULOCYTES (test 0.5 % code = 1036) NUCLEATED RBCS (test code = 0.0 /100WBC'S 1065) PLATELET COUNT (test code = 276 K/UL 1015) ABSOLUTE NEUTROPHILS (test code 5.51 K/UL = 1066) ABSOLUTE LYMPHOCYTES (test code 2.40 K/UL = 1067) ABSOLUTE MONOCYTES (test code = 0.59 K/UL 1068) ABSOLUTE EOSINOPHILS (test code 0.27 K/UL = 1040) ABSOLUTE BASOPHILS (test code = 0.06 K/UL 1069) ABS IMMATURE GRANULOCYTES (test 0.04 K/UL code = 1020) ABS NUCLEATED RBCS (test code = 0.00 K/UL 88128) CBC W/AUTO [id number] 00:00:00 Test Item Value Reference Range Interpretation Comments WBC (test code = 1001) 8.9 K/UL RBC (test code = 1002) 4.60 M/UL HEMOGLOBIN (test code = 1003) 15.1 G/DL HEMATOCRIT (test code = 1004) 43.3 % MCV (test code = 1005) 94.1 fL MCH (test code = 1006) 32.8 PG MCHC (test code = 1007) 34.9 G/DL RDW (test code = 1038) 12.4 % NEUTROPHILS (test code = 1008) 62.0 % LYMPHOCYTES (test code = 1010) 27.1 % MONOCYTES (test code = 1011) 6.7 % EOSINOPHILS (test code = 1012) 3.0 % BASOPHILS (test code = 1013) 0.7 % IMMATURE GRANULOCYTES (test 0.5 % code = 1036) NUCLEATED RBCS (test code = 0.0 /100WBC'S 1065) PLATELET COUNT (test code = 276 K/UL 1015) ABSOLUTE NEUTROPHILS (test code 5.51 K/UL = 1066) ABSOLUTE LYMPHOCYTES (test code 2.40 K/UL = 1067) ABSOLUTE MONOCYTES (test code = 0.59 K/UL 1068) ABSOLUTE EOSINOPHILS (test code 0.27 K/UL = 1040) ABSOLUTE BASOPHILS (test code = 0.06 K/UL 1069) ABS IMMATURE GRANULOCYTES (test 0.04 K/UL code = 1020) ABS NUCLEATED RBCS (test code = 0.00 K/UL 40027) [id number] 00:00:00 Test Item Value Reference Range Interpretation Comments TESTOSTERONE (test code = 2830) 173 NG/DL [id number] 00:00:00 Test Item Value Reference Range Interpretation Comments TESTOSTERONE (test code = 2830) 173 NG/DL TSH, THIRD [id number] 00:00:00 Test Item Value Reference Range Interpretation Comments TSH, THIRD GENERATION (test code 2.570 UIU/ML = 2821) TSH, THIRD [id number] 00:00:00 Test Item Value Reference Range Interpretation Comments TSH, THIRD GENERATION (test code 2.570 UIU/ML = 2821) TSH, THIRD [id number] 00:00:00 Test Item Value Reference Range Interpretation Comments TSH, THIRD GENERATION (test code 2.570 UIU/ML = 2821) SEDIMENTATION [id number] 00:00:00 Test Item Value Reference Range Interpretation Comments SEDIMENTATION RATE (test code = 16 MM/HOUR 1017) SEDIMENTATION [id number] 00:00:00 Test Item Value Reference Range Interpretation Comments SEDIMENTATION RATE (test code = 16 MM/HOUR 1017) C-REACTIVE [id number] 00:00:00 Test Item Value Reference Range Interpretation Comments C-REACTIVE PROTEIN (test code = 0.7 MG/DL 3513) C-REACTIVE [id number] 00:00:00 Test Item Value Reference Range Interpretation Comments C-REACTIVE PROTEIN (test code = 0.7 MG/DL 3513) [id number] 00:00:00 Test Item Value Reference Range Interpretation Comments CREATININE (test code = 2214) 1.07 MG/DL eGFR (2020 CKD-EPI) (test code 81 ML/MIN/1.73 = 65368) [id number] 00:00:00 Test Item Value Reference Range Interpretation Comments CREATININE (test code = 2214) 1.07 MG/DL eGFR (2020 CKD-EPI) (test code 81 ML/MIN/1.73 = 53205) CBC W/AUTO [id number] 00:00:00 Test Item Value Reference Range Interpretation Comments WBC (test code = 1001) 8.9 K/UL RBC (test code = 1002) 4.60 M/UL HEMOGLOBIN (test code = 1003) 15.1 G/DL HEMATOCRIT (test code = 1004) 43.3 % MCV (test code = 1005) 94.1 fL MCH (test code = 1006) 32.8 PG MCHC (test code = 1007) 34.9 G/DL RDW (test code = 1038) 12.4 % NEUTROPHILS (test code = 1008) 62.0 % LYMPHOCYTES (test code = 1010) 27.1 % MONOCYTES (test code = 1011) 6.7 % EOSINOPHILS (test code = 1012) 3.0 % BASOPHILS (test code = 1013) 0.7 % IMMATURE GRANULOCYTES (test 0.5 % code = 1036) NUCLEATED RBCS (test code = 0.0 /100WBC'S 1065) PLATELET COUNT (test code = 276 K/UL 1015) ABSOLUTE NEUTROPHILS (test code 5.51 K/UL = 1066) ABSOLUTE LYMPHOCYTES (test code 2.40 K/UL = 1067) ABSOLUTE MONOCYTES (test code = 0.59 K/UL 1068) ABSOLUTE EOSINOPHILS (test code 0.27 K/UL = 1040) ABSOLUTE BASOPHILS (test code = 0.06 K/UL 1069) ABS IMMATURE GRANULOCYTES (test 0.04 K/UL code = 1020) ABS NUCLEATED RBCS (test code = 0.00 K/UL 35602) CBC W/AUTO [id number] 00:00:00 Test Item Value Reference Range Interpretation Comments WBC (test code = 1001) 8.9 K/UL RBC (test code = 1002) 4.60 M/UL HEMOGLOBIN (test code = 1003) 15.1 G/DL HEMATOCRIT (test code = 1004) 43.3 % MCV (test code = 1005) 94.1 fL MCH (test code = 1006) 32.8 PG MCHC (test code = 1007) 34.9 G/DL RDW (test code = 1038) 12.4 % NEUTROPHILS (test code = 1008) 62.0 % LYMPHOCYTES (test code = 1010) 27.1 % MONOCYTES (test code = 1011) 6.7 % EOSINOPHILS (test code = 1012) 3.0 % BASOPHILS (test code = 1013) 0.7 % IMMATURE GRANULOCYTES (test 0.5 % code = 1036) NUCLEATED RBCS (test code = 0.0 /100WBC'S 1065) PLATELET COUNT (test code = 276 K/UL 1015) ABSOLUTE NEUTROPHILS (test code 5.51 K/UL = 1066) ABSOLUTE LYMPHOCYTES (test code 2.40 K/UL = 1067) ABSOLUTE MONOCYTES (test code = 0.59 K/UL 1068) ABSOLUTE EOSINOPHILS (test code 0.27 K/UL = 1040) ABSOLUTE BASOPHILS (test code = 0.06 K/UL 1069) ABS IMMATURE GRANULOCYTES (test 0.04 K/UL code = 1020) ABS NUCLEATED RBCS (test code = 0.00 K/UL 22180) CBC W/AUTO [id number] 00:00:00 Test Item Value Reference Range Interpretation Comments WBC (test code = 1001) 8.9 K/UL RBC (test code = 1002) 4.60 M/UL HEMOGLOBIN (test code = 1003) 15.1 G/DL HEMATOCRIT (test code = 1004) 43.3 % MCV (test code = 1005) 94.1 fL MCH (test code = 1006) 32.8 PG MCHC (test code = 1007) 34.9 G/DL RDW (test code = 1038) 12.4 % NEUTROPHILS (test code = 1008) 62.0 % LYMPHOCYTES (test code = 1010) 27.1 % MONOCYTES (test code = 1011) 6.7 % EOSINOPHILS (test code = 1012) 3.0 % BASOPHILS (test code = 1013) 0.7 % IMMATURE GRANULOCYTES (test 0.5 % code = 1036) NUCLEATED RBCS (test code = 0.0 /100WBC'S 1065) PLATELET COUNT (test code = 276 K/UL 1015) ABSOLUTE NEUTROPHILS (test code 5.51 K/UL = 1066) ABSOLUTE LYMPHOCYTES (test code 2.40 K/UL = 1067) ABSOLUTE MONOCYTES (test code = 0.59 K/UL 1068) ABSOLUTE EOSINOPHILS (test code 0.27 K/UL = 1040) ABSOLUTE BASOPHILS (test code = 0.06 K/UL 1069) ABS IMMATURE GRANULOCYTES (test 0.04 K/UL code = 1020) ABS NUCLEATED RBCS (test code = 0.00 K/UL 06587) [id number] 00:00:00 Test Item Value Reference Range Interpretation Comments TESTOSTERONE (test code = 2830) 173 NG/DL [id number] 00:00:00 Test Item Value Reference Range Interpretation Comments TESTOSTERONE (test code = 2830) 173 NG/DL TSH, THIRD [id number] 00:00:00 Test Item Value Reference Range Interpretation Comments TSH, THIRD GENERATION (test code 2.570 UIU/ML = 2821) TSH, THIRD [id number] 00:00:00 Test Item Value Reference Range Interpretation Comments TSH, THIRD GENERATION (test code 2.570 UIU/ML = 2821) TSH, THIRD [id number] 00:00:00 Test Item Value Reference Range Interpretation Comments TSH, THIRD GENERATION (test code 2.570 UIU/ML = 2821) SEDIMENTATION [id number] 00:00:00 Test Item Value Reference Range Interpretation Comments SEDIMENTATION RATE (test code = 16 MM/HOUR 1017) SEDIMENTATION [id number] 00:00:00 Test Item Value Reference Range Interpretation Comments SEDIMENTATION RATE (test code = 16 MM/HOUR 1017) C-REACTIVE [id number] 00:00:00 Test Item Value Reference Range Interpretation Comments C-REACTIVE PROTEIN (test code = 0.7 MG/DL 3513) C-REACTIVE [id number] 00:00:00 Test Item Value Reference Range Interpretation Comments C-REACTIVE PROTEIN (test code = 0.7 MG/DL 3513) [id number] 00:00:00 Test Item Value Reference Range Interpretation Comments CREATININE (test code = 2214) 1.07 MG/DL eGFR (2020 CKD-EPI) (test code 81 ML/MIN/1.73 = 39731) [id number] 00:00:00 Test Item Value Reference Range Interpretation Comments CREATININE (test code = 2214) 1.07 MG/DL eGFR (2020 CKD-EPI) (test code 81 ML/MIN/1.73 = 38854) HEMOGLOBIN [id number] 10:19:29 Test Item Value Reference Range Interpretation Comments HEMOGLOBIN A1c (test code = 36958) 5.9 % 4.2-5.6 H COMPREHENSIVE METABOLIC [id number] 04:39:34 Test Item Value Reference Range Interpretation Comments GLUCOSE (test code = 126 MG/DL 70-99 H 2216) BUN (test code = 20 MG/DL 6-20 2207) CREATININE (test 1.12 MG/DL 0.80-1.40 code = 221) eGFR (2020 CKD-EPI) 77 ML/MIN/1.73 >60 (test code = 13262) CALC BUN/CREAT (test 18 RATIO 03-02 code = 2235) SODIUM (test code = 141 MEQ/L 220-857 5084) POTASSIUM (test code 3.8 MEQ/L 3.5-5.4 = 2227) CHLORIDE (test code 102 MEQ/L 95-107 = 2214) CARBON DIOXIDE (test 27 MEQ/L 19-31 code = 2205) CALCIUM (test code = 10.0 MG/DL 8.5-10.5 2208) PROTEIN, TOTAL (test 7.1 G/DL 6.1-8.3 code = 2228) ALBUMIN (test code = 4.2 G/DL 3.5-5.2 2200) CALC GLOBULIN (test 2.9 G/DL 1.9-3.7 code = 2239) CALC A/G RATIO (test 1.4 RATIO 1.0-2.6 code = 223) BILIRUBIN, TOTAL 0.4 MG/DL See_Comment [Automated message] (test code = 220) The syste m which generated this result transmit sinai reference range : <=1.2. The refe rence range was not u sed to interpret th is result as normal/abnormal . ALKALINE PHOSPHATASE 101 U/L 40-123 (test code = 2203) AST (test code = 24 U/L 9-50 2217) ALT (test code = 42 U/L 5-50 2218) LIPID [id number] 04:39:34 Test Item Value Reference Range Interpretation Comments CHOLESTEROL (test 246 MG/DL <200 H code = 2210) TRIGLYCERIDES (test 209 MG/DL <150 H code = 2232) HDL CHOLESTEROL (test 48 MG/DL >39 code = 2220) CALC LDL CHOL (test 161 MG/DL <100 H NOTE: C ALCULATED LDL code = 2237) IS BASED ON ARAVIND-CLAIRE METHOD WHICHINCLUDES ADJUSTABLE TRIGLYCERIDE:VL DL CHOLESTEROL RAT IO.THIS FACTOR VARIES B Y MEASURED TRIGLY CERIDE AND NON-HDLCHOL ESTEROL CONCENTRATIONS WITH INCREASED CALCU LATED LDL SEENIN HIGH ER TRIGLYCERIDE OR LOWER NON-HDL SPECIME NS. FOR MOREINFORMATION , SEE CLIENT ANNOUNCE MENT AT [email or web address] RATIO LDL/HDL 3.35 RATIO <3.55 UNLESS O THERWISE (test code = 2238) INDICATED , ALL TESTING PERFORMED [facility], [facility]. [address] [place] [id number] [place] [address] DEMARCO DIRECTOR: Marizol DEVINEIA NUMBER [id number] CAP ACCREDITATION N O. [id number] COMPREHENSIVE METABOLIC [id number] 00:00:00 Test Item Value Reference Range Interpretation Comments GLUCOSE (test code = 2217) 126 MG/DL BUN (test code = 2208) 20 MG/DL CREATININE (test code = 2214) 1.12 MG/DL eGFR (2020 CKD-EPI) (test code 77 ML/MIN/1.73 = 86837) CALC BUN/CREAT (test code = 18 RATIO 2235) SODIUM (test code = 2231) 141 MEQ/L POTASSIUM (test code = 2228) 3.8 MEQ/L CHLORIDE (test code = 2215) 102 MEQ/L CARBON DIOXIDE (test code = 27 MEQ/L 2205) CALCIUM (test code = 2209) 10.0 MG/DL PROTEIN, TOTAL (test code = 7.1 G/DL 2228) ALBUMIN (test code = 2201) 4.2 G/DL CALC GLOBULIN (test code = 2.9 G/DL 2240) CALC A/G RATIO (test code = 1.4 RATIO 4) BILIRUBIN, TOTAL (test code = 0.4 MG/DL 2206) ALKALINE PHOSPHATASE (test 101 U/L code = 2204) AST (test code = 2218) 24 U/L ALT (test code = 2219) 42 U/L COMPREHENSIVE METABOLIC [id number] 00:00:00 Test Item Value Reference Range Interpretation Comments GLUCOSE (test code = 2217) 126 MG/DL BUN (test code = 2208) 20 MG/DL CREATININE (test code = 2214) 1.12 MG/DL eGFR (2020 CKD-EPI) (test code 77 ML/MIN/1.73 = 68263) CALC BUN/CREAT (test code = 18 RATIO 2235) SODIUM (test code = 2231) 141 MEQ/L POTASSIUM (test code = 2228) 3.8 MEQ/L CHLORIDE (test code = 2215) 102 MEQ/L CARBON DIOXIDE (test code = 27 MEQ/L 2205) CALCIUM (test code = 2209) 10.0 MG/DL PROTEIN, TOTAL (test code = 7.1 G/DL 2228) ALBUMIN (test code = 2201) 4.2 G/DL CALC GLOBULIN (test code = 2.9 G/DL 2239) CALC A/G RATIO (test code = 1.4 RATIO 2234) BILIRUBIN, TOTAL (test code = 0.4 MG/DL 2206) ALKALINE PHOSPHATASE (test 101 U/L code = 2204) AST (test code = 2218) 24 U/L ALT (test code = 2219) 42 U/L HEMOGLOBIN [id number] 00:00:00 Test Item Value Reference Range Interpretation Comments HEMOGLOBIN A1c (test code = 60028) 5.9 % HEMOGLOBIN [id number] 00:00:00 Test Item Value Reference Range Interpretation Comments HEMOGLOBIN A1c (test code = 42368) 5.9 % HEMOGLOBIN [id number] 00:00:00 Test Item Value Reference Range Interpretation Comments HEMOGLOBIN A1c (test code = 02209) 5.9 % LIPID [id number] 00:00:00 Test Item Value Reference Range Interpretation Comments CHOLESTEROL (test code = 2210) 246 MG/DL TRIGLYCERIDES (test code = 2232) 209 MG/DL HDL CHOLESTEROL (test code = 2220) 48 MG/DL CALC LDL CHOL (test code = 2237) 161 MG/DL RISK RATIO LDL/HDL (test code = 3.35 RATIO 2238) LIPID [id number] 00:00:00 Test Item Value Reference Range Interpretation Comments CHOLESTEROL (test code = 2210) 246 MG/DL TRIGLYCERIDES (test code = 2232) 209 MG/DL HDL CHOLESTEROL (test code = 2220) 48 MG/DL CALC LDL CHOL (test code = 2237) 161 MG/DL RISK RATIO LDL/HDL (test code = 3.35 RATIO 2238) COMPREHENSIVE METABOLIC [id number] 00:00:00 Test Item Value Reference Range Interpretation Comments GLUCOSE (test code = 2217) 126 MG/DL BUN (test code = 2208) 20 MG/DL CREATININE (test code = 2214) 1.12 MG/DL eGFR (2020 CKD-EPI) (test code 77 ML/MIN/1.73 = 17550) CALC BUN/CREAT (test code = 18 RATIO 2235) SODIUM (test code = 2231) 141 MEQ/L POTASSIUM (test code = 2228) 3.8 MEQ/L CHLORIDE (test code = 2215) 102 MEQ/L CARBON DIOXIDE (test code = 27 MEQ/L 2205) CALCIUM (test code = 2209) 10.0 MG/DL PROTEIN, TOTAL (test code = 7.1 G/DL 2228) ALBUMIN (test code = 2201) 4.2 G/DL CALC GLOBULIN (test code = 2.9 G/DL 2240) CALC A/G RATIO (test code = 1.4 RATIO 2234) BILIRUBIN, TOTAL (test code = 0.4 MG/DL 2206) ALKALINE PHOSPHATASE (test 101 U/L code = 2204) AST (test code = 2218) 24 U/L ALT (test code = 2219) 42 U/L COMPREHENSIVE METABOLIC [id number] 00:00:00 Test Item Value Reference Range Interpretation Comments GLUCOSE (test code = 2217) 126 MG/DL BUN (test code = 2208) 20 MG/DL CREATININE (test code = 2214) 1.12 MG/DL eGFR (2020 CKD-EPI) (test code 77 ML/MIN/1.73 = 14168) CALC BUN/CREAT (test code = 18 RATIO 5) SODIUM (test code = 2231) 141 MEQ/L POTASSIUM (test code = 2228) 3.8 MEQ/L CHLORIDE (test code = 2215) 102 MEQ/L CARBON DIOXIDE (test code = 27 MEQ/L 2205) CALCIUM (test code = 2209) 10.0 MG/DL PROTEIN, TOTAL (test code = 7.1 G/DL 2228) ALBUMIN (test code = 2201) 4.2 G/DL CALC GLOBULIN (test code = 2.9 G/DL 2240) CALC A/G RATIO (test code = 1.4 RATIO 2234) BILIRUBIN, TOTAL (test code = 0.4 MG/DL 2206) ALKALINE PHOSPHATASE (test 101 U/L code = 2204) AST (test code = 2218) 24 U/L ALT (test code = 2219) 42 U/L HEMOGLOBIN [id number] 00:00:00 Test Item Value Reference Range Interpretation Comments HEMOGLOBIN A1c (test code = 52019) 5.9 % HEMOGLOBIN [id number] 00:00:00 Test Item Value Reference Range Interpretation Comments HEMOGLOBIN A1c (test code = 73632) 5.9 % HEMOGLOBIN [id number] 00:00:00 Test Item Value Reference Range Interpretation Comments HEMOGLOBIN A1c (test code = 46506) 5.9 % LIPID [id number] 00:00:00 Test Item Value Reference Range Interpretation Comments CHOLESTEROL (test code = 2210) 246 MG/DL TRIGLYCERIDES (test code = 2232) 209 MG/DL HDL CHOLESTEROL (test code = 2220) 48 MG/DL CALC LDL CHOL (test code = 2237) 161 MG/DL RISK RATIO LDL/HDL (test code = 3.35 RATIO 2238) LIPID [id number] 00:00:00 Test Item Value Reference Range Interpretation Comments CHOLESTEROL (test code = 2210) 246 MG/DL TRIGLYCERIDES (test code = 2232) 209 MG/DL HDL CHOLESTEROL (test code = 2220) 48 MG/DL CALC LDL CHOL (test code = 2237) 161 MG/DL RISK RATIO LDL/HDL (test code = 3.35 RATIO 2238) COMPREHENSIVE METABOLIC [id number] 00:00:00 Test Item Value Reference Range Interpretation Comments GLUCOSE (test code = 2217) 126 MG/DL BUN (test code = 2208) 20 MG/DL CREATININE (test code = 2214) 1.12 MG/DL eGFR (2020 CKD-EPI) (test code 77 ML/MIN/1.73 = 52555) CALC BUN/CREAT (test code = 18 RATIO 2235) SODIUM (test code = 2231) 141 MEQ/L POTASSIUM (test code = 2228) 3.8 MEQ/L CHLORIDE (test code = 2215) 102 MEQ/L CARBON DIOXIDE (test code = 27 MEQ/L 2205) CALCIUM (test code = 2209) 10.0 MG/DL PROTEIN, TOTAL (test code = 7.1 G/DL 2228) ALBUMIN (test code = 2200) 4.2 G/DL CALC GLOBULIN (test code = 2.9 G/DL 2240) CALC A/G RATIO (test code = 1.4 RATIO 2234) BILIRUBIN, TOTAL (test code = 0.4 MG/DL 2206) ALKALINE PHOSPHATASE (test 101 U/L code = 2204) AST (test code = 2218) 24 U/L ALT (test code = 2219) 42 U/L COMPREHENSIVE METABOLIC [id number] 00:00:00 Test Item Value Reference Range Interpretation Comments GLUCOSE (test code = 2217) 126 MG/DL BUN (test code = 2208) 20 MG/DL CREATININE (test code = 2214) 1.12 MG/DL eGFR (2020 CKD-EPI) (test code 77 ML/MIN/1.73 = 17610) CALC BUN/CREAT (test code = 18 RATIO 2235) SODIUM (test code = 2231) 141 MEQ/L POTASSIUM (test code = 2228) 3.8 MEQ/L CHLORIDE (test code = 2215) 102 MEQ/L CARBON DIOXIDE (test code = 27 MEQ/L 2205) CALCIUM (test code = 2209) 10.0 MG/DL PROTEIN, TOTAL (test code = 7.1 G/DL 2228) ALBUMIN (test code = 2201) 4.2 G/DL CALC GLOBULIN (test code = 2.9 G/DL 0) CALC A/G RATIO (test code = 1.4 RATIO 2234) BILIRUBIN, TOTAL (test code = 0.4 MG/DL 2206) ALKALINE PHOSPHATASE (test 101 U/L code = 2204) AST (test code = 2218) 24 U/L ALT (test code = 2219) 42 U/L HEMOGLOBIN [id number] 00:00:00 Test Item Value Reference Range Interpretation Comments HEMOGLOBIN A1c (test code = 31565) 5.9 % HEMOGLOBIN [id number] 00:00:00 Test Item Value Reference Range Interpretation Comments HEMOGLOBIN A1c (test code = 10606) 5.9 % HEMOGLOBIN [id number] 00:00:00 Test Item Value Reference Range Interpretation Comments HEMOGLOBIN A1c (test code = 47425) 5.9 % LIPID [id number] 00:00:00 Test Item Value Reference Range Interpretation Comments CHOLESTEROL (test code = 2210) 246 MG/DL TRIGLYCERIDES (test code = 2232) 209 MG/DL HDL CHOLESTEROL (test code = 2220) 48 MG/DL CALC LDL CHOL (test code = 2237) 161 MG/DL RISK RATIO LDL/HDL (test code = 3.35 RATIO 2238) LIPID [id number] 00:00:00 Test Item Value Reference Range Interpretation Comments CHOLESTEROL (test code = 2210) 246 MG/DL TRIGLYCERIDES (test code = 2232) 209 MG/DL HDL CHOLESTEROL (test code = 2220) 48 MG/DL CALC LDL CHOL (test code = 2237) 161 MG/DL RISK RATIO LDL/HDL (test code = 3.35 RATIO 2238) HEMOGLOBIN [id number] 05:30:45 Test Item Value Reference Range Interpretation Comments HEMOGLOBIN A1c (test 6.2 % 4.2-5.6 H UNLESS OTHERWISE code = 56258) INDICATED, ALL TESTING PERFORMED [facility] [employer]. [address] [place] [id number] [place] [address] DIRECTOR: DIAMOND ODELL M.D. CLIA NUMBER [id number] CAP ACCREDITATION N O. [id number] COMPREHENSIVE METABOLIC [id number] 04:18:35 Test Item Value Reference Range Interpretation Comments GLUCOSE (test code = 167 MG/DL 70-99 H 2216) BUN (test code = 21 MG/DL 6-20 H 2207) CREATININE (test 1.18 MG/DL 0.80-1.40 code = 2214) eGFR (2020 CKD-EPI) 72 ML/MIN/1.73 >60 (test code = 77847) CALC BUN/CREAT (test 18 RATIO 6-28 code = 2235) SODIUM (test code = 139 MEQ/L 375-443 3955) POTASSIUM (test code 4.3 MEQ/L 3.5-5.4 = 222) CHLORIDE (test code 100 MEQ/L 95-107 = 2215) CARBON DIOXIDE (test 29 MEQ/L 19-31 code = 2206) CALCIUM (test code = 9.7 MG/DL 8.5-10.5 2208) PROTEIN, TOTAL (test 7.4 G/DL 6.1-8.3 code = 2229) ALBUMIN (test code = 4.1 G/DL 3.5-5.2 2200) CALC GLOBULIN (test 3.3 G/DL 1.9-3.7 code = 2240) CALC A/G RATIO (test 1.2 RATIO 1.0-2.6 code = 2234) BILIRUBIN, TOTAL 0.5 MG/DL See_Comment [Automated message] (test code = 2207) The syste m which generated this result transmit sinai reference range : <=1.2. The refe rence range was not u sed to interpret th is result as normal/abnormal . ALKALINE PHOSPHATASE 124 U/L 40-123 H (test code = 2204) AST (test code = 17 U/L 9-50 2217) ALT (test code = 32 U/L 5-50 2218) LIPID [id number] 04:18:35 Test Item Value Reference Range Interpretation Comments CHOLESTEROL (test 240 MG/DL <200 H code = 2210) TRIGLYCERIDES (test 160 MG/DL <150 H code = 2232) HDL CHOLESTEROL (test 53 MG/DL >39 code = 2220) CALC LDL CHOL (test 157 MG/DL <100 H NOTE: C ALCULATED LDL code = 2237) IS BASED ON ARAVIND-CLAIRE METHOD WHICHINCLUDES ADJUSTABLE TRIGLYCERIDE:VL DL CHOLESTEROL RAT IO.THIS FACTOR VARIES B Y MEASURED TRIGLY CERIDE AND NON-HDLCHOL ESTEROL CONCENTRATIONS WITH INCREASED CALCU LATED LDL SEENIN HIGH ER TRIGLYCERIDE OR LOWER NON-HDL SPECIME NS. FOR MOREINFORMATION , SEE CLIENT ANNOUNCE MENT AT [email or web address] RISK RATIO LDL/HDL 2.96 RATIO <3.55 (test code = 2238) COMPREHENSIVE METABOLIC [id number] 00:00:00 Test Item Value Reference Range Interpretation Comments GLUCOSE (test code = 2217) 167 MG/DL BUN (test code = 2208) 21 MG/DL CREATININE (test code = 2214) 1.18 MG/DL eGFR (2020 CKD-EPI) (test code 72 ML/MIN/1.73 = 66479) CALC BUN/CREAT (test code = 18 RATIO 5) SODIUM (test code = 223) 139 MEQ/L POTASSIUM (test code = 2228) 4.3 MEQ/L CHLORIDE (test code = 2215) 100 MEQ/L CARBON DIOXIDE (test code = 29 MEQ/L 2205) CALCIUM (test code = 2209) 9.7 MG/DL PROTEIN, TOTAL (test code = 7.4 G/DL 2228) ALBUMIN (test code = 2201) 4.1 G/DL CALC GLOBULIN (test code = 3.3 G/DL 2240) CALC A/G RATIO (test code = 1.2 RATIO 2234) BILIRUBIN, TOTAL (test code = 0.5 MG/DL 2206) ALKALINE PHOSPHATASE (test 124 U/L code = 2204) AST (test code = 2218) 17 U/L ALT (test code = 2219) 32 U/L COMPREHENSIVE METABOLIC [id number] 00:00:00 Test Item Value Reference Range Interpretation Comments GLUCOSE (test code = 2217) 167 MG/DL BUN (test code = 2208) 21 MG/DL CREATININE (test code = 2214) 1.18 MG/DL eGFR (2020 CKD-EPI) (test code 72 ML/MIN/1.73 = 27666) CALC BUN/CREAT (test code = 18 RATIO 2235) SODIUM (test code = 2231) 139 MEQ/L POTASSIUM (test code = 2228) 4.3 MEQ/L CHLORIDE (test code = 2215) 100 MEQ/L CARBON DIOXIDE (test code = 29 MEQ/L 2205) CALCIUM (test code = 2209) 9.7 MG/DL PROTEIN, TOTAL (test code = 7.4 G/DL 2228) ALBUMIN (test code = 2201) 4.1 G/DL CALC GLOBULIN (test code = 3.3 G/DL 2240) CALC A/G RATIO (test code = 1.2 RATIO 2234) BILIRUBIN, TOTAL (test code = 0.5 MG/DL 2206) ALKALINE PHOSPHATASE (test 124 U/L code = 2204) AST (test code = 2218) 17 U/L ALT (test code = 2219) 32 U/L LIPID [id number] 00:00:00 Test Item Value Reference Range Interpretation Comments CHOLESTEROL (test code = 2210) 240 MG/DL TRIGLYCERIDES (test code = 2232) 160 MG/DL HDL CHOLESTEROL (test code = 2220) 53 MG/DL CALC LDL CHOL (test code = 2237) 157 MG/DL RISK RATIO LDL/HDL (test code = 2.96 RATIO 2238) LIPID [id number] 00:00:00 Test Item Value Reference Range Interpretation Comments CHOLESTEROL (test code = 2210) 240 MG/DL TRIGLYCERIDES (test code = 2232) 160 MG/DL HDL CHOLESTEROL (test code = 2220) 53 MG/DL CALC LDL CHOL (test code = 2237) 157 MG/DL RISK RATIO LDL/HDL (test code = 2.96 RATIO 2238) 2708 HEMOGLOBIN [id number] 00:00:00 Test Item Value Reference Range Interpretation Comments HEMOGLOBIN A1c (test code = 15282) 6.2 % 2708 HEMOGLOBIN [id number] 00:00:00 Test Item Value Reference Range Interpretation Comments HEMOGLOBIN A1c (test code = 10044) 6.2 % 2708 HEMOGLOBIN [id number] 00:00:00 Test Item Value Reference Range Interpretation Comments HEMOGLOBIN A1c (test code = 22536) 6.2 % COMPREHENSIVE METABOLIC [id number] 00:00:00 Test Item Value Reference Range Interpretation Comments GLUCOSE (test code = 2217) 167 MG/DL BUN (test code = 2208) 21 MG/DL CREATININE (test code = 2214) 1.18 MG/DL eGFR (2020 CKD-EPI) (test code 72 ML/MIN/1.73 = 91826) CALC BUN/CREAT (test code = 18 RATIO 5) SODIUM (test code = 2231) 139 MEQ/L POTASSIUM (test code = 2228) 4.3 MEQ/L CHLORIDE (test code = 2215) 100 MEQ/L CARBON DIOXIDE (test code = 29 MEQ/L 2205) CALCIUM (test code = 2209) 9.7 MG/DL PROTEIN, TOTAL (test code = 7.4 G/DL 2228) ALBUMIN (test code = 2201) 4.1 G/DL CALC GLOBULIN (test code = 3.3 G/DL 2239) CALC A/G RATIO (test code = 1.2 RATIO 2233) BILIRUBIN, TOTAL (test code = 0.5 MG/DL 2206) ALKALINE PHOSPHATASE (test 124 U/L code = 2204) AST (test code = 2218) 17 U/L ALT (test code = 2219) 32 U/L COMPREHENSIVE METABOLIC [id number] 00:00:00 Test Item Value Reference Range Interpretation Comments GLUCOSE (test code = 2217) 167 MG/DL BUN (test code = 2208) 21 MG/DL CREATININE (test code = 2214) 1.18 MG/DL eGFR (2020 CKD-EPI) (test code 72 ML/MIN/1.73 = 17954) CALC BUN/CREAT (test code = 18 RATIO 2235) SODIUM (test code = 2231) 139 MEQ/L POTASSIUM (test code = 2228) 4.3 MEQ/L CHLORIDE (test code = 2215) 100 MEQ/L CARBON DIOXIDE (test code = 29 MEQ/L 2205) CALCIUM (test code = 2209) 9.7 MG/DL PROTEIN, TOTAL (test code = 7.4 G/DL 2228) ALBUMIN (test code = 2201) 4.1 G/DL CALC GLOBULIN (test code = 3.3 G/DL 2239) CALC A/G RATIO (test code = 1.2 RATIO 2234) BILIRUBIN, TOTAL (test code = 0.5 MG/DL 2206) ALKALINE PHOSPHATASE (test 124 U/L code = 2204) AST (test code = 2218) 17 U/L ALT (test code = 2219) 32 U/L LIPID [id number] 00:00:00 Test Item Value Reference Range Interpretation Comments CHOLESTEROL (test code = 2210) 240 MG/DL TRIGLYCERIDES (test code = 2232) 160 MG/DL HDL CHOLESTEROL (test code = 2220) 53 MG/DL CALC LDL CHOL (test code = 2237) 157 MG/DL RISK RATIO LDL/HDL (test code = 2.96 RATIO 2238) LIPID [id number] 00:00:00 Test Item Value Reference Range Interpretation Comments CHOLESTEROL (test code = 2210) 240 MG/DL TRIGLYCERIDES (test code = 2232) 160 MG/DL HDL CHOLESTEROL (test code = 2220) 53 MG/DL CALC LDL CHOL (test code = 2237) 157 MG/DL RISK RATIO LDL/HDL (test code = 2.96 RATIO 2238) 2708 HEMOGLOBIN [id number] 00:00:00 Test Item Value Reference Range Interpretation Comments HEMOGLOBIN A1c (test code = 00019) 6.2 % 2708 HEMOGLOBIN [id number] 00:00:00 Test Item Value Reference Range Interpretation Comments HEMOGLOBIN A1c (test code = 69747) 6.2 % 2708 HEMOGLOBIN [id number] 00:00:00 Test Item Value Reference Range Interpretation Comments HEMOGLOBIN A1c (test code = 89337) 6.2 % COMPREHENSIVE METABOLIC [id number] 00:00:00 Test Item Value Reference Range Interpretation Comments GLUCOSE (test code = 2217) 167 MG/DL BUN (test code = 2208) 21 MG/DL CREATININE (test code = 2214) 1.18 MG/DL eGFR (2020 CKD-EPI) (test code 72 ML/MIN/1.73 = 29049) CALC BUN/CREAT (test code = 18 RATIO 2235) SODIUM (test code = 2231) 139 MEQ/L POTASSIUM (test code = 2228) 4.3 MEQ/L CHLORIDE (test code = 2215) 100 MEQ/L CARBON DIOXIDE (test code = 29 MEQ/L 2205) CALCIUM (test code = 2209) 9.7 MG/DL PROTEIN, TOTAL (test code = 7.4 G/DL 2228) ALBUMIN (test code = 2201) 4.1 G/DL CALC GLOBULIN (test code = 3.3 G/DL 2240) CALC A/G RATIO (test code = 1.2 RATIO 2234) BILIRUBIN, TOTAL (test code = 0.5 MG/DL 2206) ALKALINE PHOSPHATASE (test 124 U/L code = 2204) AST (test code = 2218) 17 U/L ALT (test code = 2219) 32 U/L COMPREHENSIVE METABOLIC [id number] 00:00:00 Test Item Value Reference Range Interpretation Comments GLUCOSE (test code = 2217) 167 MG/DL BUN (test code = 2208) 21 MG/DL CREATININE (test code = 2214) 1.18 MG/DL eGFR (2020 CKD-EPI) (test code 72 ML/MIN/1.73 = 23841) CALC BUN/CREAT (test code = 18 RATIO 2235) SODIUM (test code = 2231) 139 MEQ/L POTASSIUM (test code = 2228) 4.3 MEQ/L CHLORIDE (test code = 2215) 100 MEQ/L CARBON DIOXIDE (test code = 29 MEQ/L 2205) CALCIUM (test code = 2209) 9.7 MG/DL PROTEIN, TOTAL (test code = 7.4 G/DL 2228) ALBUMIN (test code = 2201) 4.1 G/DL CALC GLOBULIN (test code = 3.3 G/DL 2240) CALC A/G RATIO (test code = 1.2 RATIO 2234) BILIRUBIN, TOTAL (test code = 0.5 MG/DL 2206) ALKALINE PHOSPHATASE (test 124 U/L code = 2204) AST (test code = 2218) 17 U/L ALT (test code = 2219) 32 U/L COMPREHENSIVE METABOLIC [id number] 00:00:00 Test Item Value Reference Range Interpretation Comments GLUCOSE (test code = 2217) 167 MG/DL BUN (test code = 2208) 21 MG/DL CREATININE (test code = 2214) 1.18 MG/DL eGFR (2020 CKD-EPI) (test code 72 ML/MIN/1.73 = 51541) CALC BUN/CREAT (test code = 18 RATIO 2235) SODIUM (test code = 2231) 139 MEQ/L POTASSIUM (test code = 2228) 4.3 MEQ/L CHLORIDE (test code = 2215) 100 MEQ/L CARBON DIOXIDE (test code = 29 MEQ/L 2205) CALCIUM (test code = 2209) 9.7 MG/DL PROTEIN, TOTAL (test code = 7.4 G/DL 2228) ALBUMIN (test code = 2201) 4.1 G/DL CALC GLOBULIN (test code = 3.3 G/DL 2239) CALC A/G RATIO (test code = 1.2 RATIO 2234) BILIRUBIN, TOTAL (test code = 0.5 MG/DL 2206) ALKALINE PHOSPHATASE (test 124 U/L code = 2204) AST (test code = 2218) 17 U/L ALT (test code = 2219) 32 U/L LIPID [id number] 00:00:00 Test Item Value Reference Range Interpretation Comments CHOLESTEROL (test code = 2210) 240 MG/DL TRIGLYCERIDES (test code = 2232) 160 MG/DL HDL CHOLESTEROL (test code = 2220) 53 MG/DL CALC LDL CHOL (test code = 2237) 157 MG/DL RISK RATIO LDL/HDL (test code = 2.96 RATIO 2238) LIPID [id number] 00:00:00 Test Item Value Reference Range Interpretation Comments CHOLESTEROL (test code = 2210) 240 MG/DL TRIGLYCERIDES (test code = 2232) 160 MG/DL HDL CHOLESTEROL (test code = 2220) 53 MG/DL CALC LDL CHOL (test code = 2237) 157 MG/DL RISK RATIO LDL/HDL (test code = 2.96 RATIO 2238) 2708 HEMOGLOBIN [id number] 00:00:00 Test Item Value Reference Range Interpretation Comments HEMOGLOBIN A1c (test code = 78412) 6.2 % 2708 HEMOGLOBIN [id number] 00:00:00 Test Item Value Reference Range Interpretation Comments HEMOGLOBIN A1c (test code = 12422) 6.2 % 2708 HEMOGLOBIN [id number] 00:00:00 Test Item Value Reference Range Interpretation Comments HEMOGLOBIN A1c (test code = 87364) 6.2 % COMPREHENSIVE METABOLIC [id number] 00:00:00 Test Item Value Reference Range Interpretation Comments GLUCOSE (test code = 2217) 167 MG/DL BUN (test code = 2208) 21 MG/DL CREATININE (test code = 2214) 1.18 MG/DL eGFR (2020 CKD-EPI) (test code 72 ML/MIN/1.73 = 10130) CALC BUN/CREAT (test code = 18 RATIO 2235) SODIUM (test code = 2231) 139 MEQ/L POTASSIUM (test code = 2228) 4.3 MEQ/L CHLORIDE (test code = 2215) 100 MEQ/L CARBON DIOXIDE (test code = 29 MEQ/L 2205) CALCIUM (test code = 2209) 9.7 MG/DL PROTEIN, TOTAL (test code = 7.4 G/DL 2228) ALBUMIN (test code = 2201) 4.1 G/DL CALC GLOBULIN (test code = 3.3 G/DL 2239) CALC A/G RATIO (test code = 1.2 RATIO 4) BILIRUBIN, TOTAL (test code = 0.5 MG/DL 2206) ALKALINE PHOSPHATASE (test 124 U/L code = 2204) AST (test code = 2218) 17 U/L ALT (test code = 2219) 32 U/L LIPID [id number] 00:00:00 Test Item Value Reference Range Interpretation Comments CHOLESTEROL (test code = 2210) 240 MG/DL TRIGLYCERIDES (test code = 2232) 160 MG/DL HDL CHOLESTEROL (test code = 2220) 53 MG/DL CALC LDL CHOL (test code = 2237) 157 MG/DL RISK RATIO LDL/HDL (test code = 2.96 RATIO 2238) LIPID [id number] 00:00:00 Test Item Value Reference Range Interpretation Comments CHOLESTEROL (test code = 2210) 240 MG/DL TRIGLYCERIDES (test code = 2232) 160 MG/DL HDL CHOLESTEROL (test code = 2220) 53 MG/DL CALC LDL CHOL (test code = 2237) 157 MG/DL RISK RATIO LDL/HDL (test code = 2.96 RATIO 2238) 2708 HEMOGLOBIN [id number] 00:00:00 Test Item Value Reference Range Interpretation Comments HEMOGLOBIN A1c (test code = 98334) 6.2 % 2708 HEMOGLOBIN [id number] 00:00:00 Test Item Value Reference Range Interpretation Comments HEMOGLOBIN A1c (test code = 41578) 6.2 % 2708 HEMOGLOBIN [id number] 00:00:00 Test Item Value Reference Range Interpretation Comments HEMOGLOBIN A1c (test code = 52589) 6.2 % [id number] 17:51:37 Test Item Value Reference Range Interpretation Comments APPEARANCE (test code = Clear Clear [id number]) COLOR (test code = Yellow Yellow 9620997435) PH (test code = 4.8-8.0 2651981779) SP GRAVITY (test code = 1.003-1.030 9544772089) GLU U QUAL (test code = Normal Normal 6773201958) BLOOD (test code = Negative Negative 6528911820) KETONES (test code = Negative Negative 0151546260) PROTEIN (test code = Negative Negative 2887-8) UROBILIN (test code = Normal Normal 8850654334) BILIRUBIN (test code = Negative Negative 8703451860) NITRITE (test code = Negative Negative 9813728790) LEUK SADIQ (test code = Negative Negative 3542977916) RBC/HPF (test code = See_Comment [Autom ated message] [id number]) The system [employer] generated this result transmitted ref erence range: 0 - 3 HP F. The reference range was not used to int erpret this result as normal/abnormal . WBC/HPF (test code = See_Comment [Autom ated message] [id number]) The system [employer] generated this result transmitted ref erence range: 0 - 5 HP F. The reference range was not used to int erpret this result as normal/abnormal . BACTERIA (test code = Negative Negative [id number]) MUCOUS (test code = Slight Negative LPF A [id number]) SQ EPITH (test code = <1 HPF [id number]) Lab Interpretation (test Abnormal code = 23249-0) [facility] Test Item Value Reference Range Interpretation Comments APPEARANCE (test code = Clear Clear [id number]) COLOR (test code = Yellow Yellow [id number]) PH (test code = 4.8-8.0 5666458762) SP GRAVITY (test code = 1.003-1.030 6441120314) GLU U QUAL (test code = Normal Normal 3008167862) BLOOD (test code = Negative Negative 8468038759) KETONES (test code = Negative Negative 6724145426) PROTEIN (test code = Negative Negative 2887-8) UROBILIN (test code = Normal Normal 6241576717) BILIRUBIN (test code = Negative Negative 0178110512) NITRITE (test code = Negative Negative 8748649426) LEUK SADIQ (test code = Negative Negative 5011066826) RBC/HPF (test code = See_Comment [Autom ated message] [id number]) The system [employer] generated this result transmitted ref erence range: 0 - 3 HP F. The reference range was not used to int erpret this result as normal/abnormal . WBC/HPF (test code = See_Comment [Autom ated message] [id number]) The system [employer] generated this result transmitted ref erence range: 0 - 5 HP F. The reference range was not used to int erpret this result as normal/abnormal . BACTERIA (test code = Negative Negative 9995877117) MUCOUS (test code = Slight Negative LPF A 9313675927) SQ EPITH (test code = <1 HPF 1740977010) Lab Interpretation (test Abnormal code = 85616-9) [facility] W/AUTO [id number] 00:00:00 Test Item Value Reference Range Interpretation Comments WBC (test code = 1001) 9.3 K/UL RBC (test code = 1002) 4.79 M/UL HEMOGLOBIN (test code = 1003) 15.0 G/DL HEMATOCRIT (test code = 1004) 43.6 % MCV (test code = 1005) 91.0 fL MCH (test code = 1006) 31.3 PG MCHC (test code = 1007) 34.4 G/DL RDW (test code = 1038) 13.1 % NEUTROPHILS (test code = 1008) 60.2 % LYMPHOCYTES (test code = 1010) 28.2 % MONOCYTES (test code = 1011) 7.1 % EOSINOPHILS (test code = 1012) 3.9 % BASOPHILS (test code = 1013) 0.6 % PLATELET COUNT (test code = 1015) 287 K/UL CBC W/AUTO [id number] 00:00:00 Test Item Value Reference Range Interpretation Comments WBC (test code = 1001) 9.3 K/UL RBC (test code = 1002) 4.79 M/UL HEMOGLOBIN (test code = 1003) 15.0 G/DL HEMATOCRIT (test code = 1004) 43.6 % MCV (test code = 1005) 91.0 fL MCH (test code = 1006) 31.3 PG MCHC (test code = 1007) 34.4 G/DL RDW (test code = 1038) 13.1 % NEUTROPHILS (test code = 1008) 60.2 % LYMPHOCYTES (test code = 1010) 28.2 % MONOCYTES (test code = 1011) 7.1 % EOSINOPHILS (test code = 1012) 3.9 % BASOPHILS (test code = 1013) 0.6 % PLATELET COUNT (test code = 1015) 287 K/UL CBC W/AUTO [id number] 00:00:00 Test Item Value Reference Range Interpretation Comments WBC (test code = 1001) 9.3 K/UL RBC (test code = 1002) 4.79 M/UL HEMOGLOBIN (test code = 1003) 15.0 G/DL HEMATOCRIT (test code = 1004) 43.6 % MCV (test code = 1005) 91.0 fL MCH (test code = 1006) 31.3 PG MCHC (test code = 1007) 34.4 G/DL RDW (test code = 1038) 13.1 % NEUTROPHILS (test code = 1008) 60.2 % LYMPHOCYTES (test code = 1010) 28.2 % MONOCYTES (test code = 1011) 7.1 % EOSINOPHILS (test code = 1012) 3.9 % BASOPHILS (test code = 1013) 0.6 % PLATELET COUNT (test code = 1015) 287 K/UL COMPREHENSIVE METABOLIC [id number] 00:00:00 Test Item Value Reference Range Interpretation Comments GLUCOSE (test code = 2217) 84 MG/DL BUN (test code = 2208) 16 MG/DL CREATININE (test code = 2214) 1.03 MG/DL eGFR AMER. (test code 94 ML/MIN/1.73 = 82257) eGFR NON- AMER. (test 81 ML/MIN/1.73 code = 68705) CALC BUN/CREAT (test code = 16 RATIO 2235) SODIUM (test code = 2231) 139 MEQ/L POTASSIUM (test code = 2228) 4.4 MEQ/L CHLORIDE (test code = 2215) 100 MEQ/L CARBON DIOXIDE (test code = 27 MEQ/L 220) CALCIUM (test code = 2209) 9.6 MG/DL PROTEIN, TOTAL (test code = 7.6 G/DL 2228) ALBUMIN (test code = 2201) 4.5 G/DL CALC GLOBULIN (test code = 3.1 G/DL 2240) CALC A/G RATIO (test code = 1.5 RATIO 2234) BILIRUBIN, TOTAL (test code = 0.3 MG/DL 2206) ALKALINE PHOSPHATASE (test 122 U/L code = 2204) AST (test code = 2218) 20 U/L ALT (test code = 2219) 31 U/L COMPREHENSIVE METABOLIC [id number] 00:00:00 Test Item Value Reference Range Interpretation Comments GLUCOSE (test code = 2217) 84 MG/DL BUN (test code = 2208) 16 MG/DL CREATININE (test code = 2214) 1.03 MG/DL eGFR AMER. (test code 94 ML/MIN/1.73 = 18749) eGFR NON- AMER. (test 81 ML/MIN/1.73 code = 75159) CALC BUN/CREAT (test code = 16 RATIO 2235) SODIUM (test code = 2231) 139 MEQ/L POTASSIUM (test code = 2228) 4.4 MEQ/L CHLORIDE (test code = 2215) 100 MEQ/L CARBON DIOXIDE (test code = 27 MEQ/L 2206) CALCIUM (test code = 2209) 9.6 MG/DL PROTEIN, TOTAL (test code = 7.6 G/DL 2228) ALBUMIN (test code = 2201) 4.5 G/DL CALC GLOBULIN (test code = 3.1 G/DL 2240) CALC A/G RATIO (test code = 1.5 RATIO 2234) BILIRUBIN, TOTAL (test code = 0.3 MG/DL 2207) ALKALINE PHOSPHATASE (test 122 U/L code = 2204) AST (test code = 2218) 20 U/L ALT (test code = 2219) 31 U/L HEMOGLOBIN [id number] 00:00:00 Test Item Value Reference Range Interpretation Comments HEMOGLOBIN A1c (test code = 55602) 5.9 % HEMOGLOBIN [id number] 00:00:00 Test Item Value Reference Range Interpretation Comments HEMOGLOBIN A1c (test code = 01104) 5.9 % HEMOGLOBIN [id number] 00:00:00 Test Item Value Reference Range Interpretation Comments HEMOGLOBIN A1c (test code = 30071) 5.9 % LIPID [id number] 00:00:00 Test Item Value Reference Range Interpretation Comments CHOLESTEROL (test code = 2210) 281 MG/DL TRIGLYCERIDES (test code = 2232) 352 MG/DL HDL CHOLESTEROL (test code = 2220) 49 MG/DL CALC LDL CHOL (test code = 2237) 162 MG/DL RISK RATIO LDL/HDL (test code = 3.30 RATIO 2238) LIPID [id number] 00:00:00 Test Item Value Reference Range Interpretation Comments CHOLESTEROL (test code = 2210) 281 MG/DL TRIGLYCERIDES (test code = 2232) 352 MG/DL HDL CHOLESTEROL (test code = 2220) 49 MG/DL CALC LDL CHOL (test code = 2237) 162 MG/DL RISK RATIO LDL/HDL (test code = 3.30 RATIO 2238) CBC W/AUTO [id number] 00:00:00 Test Item Value Reference Range Interpretation Comments WBC (test code = 1001) 9.3 K/UL RBC (test code = 1002) 4.79 M/UL HEMOGLOBIN (test code = 1003) 15.0 G/DL HEMATOCRIT (test code = 1004) 43.6 % MCV (test code = 1005) 91.0 fL MCH (test code = 1006) 31.3 PG MCHC (test code = 1007) 34.4 G/DL RDW (test code = 1038) 13.1 % NEUTROPHILS (test code = 1008) 60.2 % LYMPHOCYTES (test code = 1010) 28.2 % MONOCYTES (test code = 1011) 7.1 % EOSINOPHILS (test code = 1012) 3.9 % BASOPHILS (test code = 1013) 0.6 % PLATELET COUNT (test code = 1015) 287 K/UL CBC W/AUTO [id number] 00:00:00 Test Item Value Reference Range Interpretation Comments WBC (test code = 1001) 9.3 K/UL RBC (test code = 1002) 4.79 M/UL HEMOGLOBIN (test code = 1003) 15.0 G/DL HEMATOCRIT (test code = 1004) 43.6 % MCV (test code = 1005) 91.0 fL MCH (test code = 1006) 31.3 PG MCHC (test code = 1007) 34.4 G/DL RDW (test code = 1038) 13.1 % NEUTROPHILS (test code = 1008) 60.2 % LYMPHOCYTES (test code = 1010) 28.2 % MONOCYTES (test code = 1011) 7.1 % EOSINOPHILS (test code = 1012) 3.9 % BASOPHILS (test code = 1013) 0.6 % PLATELET COUNT (test code = 1015) 287 K/UL CBC W/AUTO [id number] 00:00:00 Test Item Value Reference Range Interpretation Comments WBC (test code = 1001) 9.3 K/UL RBC (test code = 1002) 4.79 M/UL HEMOGLOBIN (test code = 1003) 15.0 G/DL HEMATOCRIT (test code = 1004) 43.6 % MCV (test code = 1005) 91.0 fL MCH (test code = 1006) 31.3 PG MCHC (test code = 1007) 34.4 G/DL RDW (test code = 1038) 13.1 % NEUTROPHILS (test code = 1008) 60.2 % LYMPHOCYTES (test code = 1010) 28.2 % MONOCYTES (test code = 1011) 7.1 % EOSINOPHILS (test code = 1012) 3.9 % BASOPHILS (test code = 1013) 0.6 % PLATELET COUNT (test code = 1015) 287 K/UL COMPREHENSIVE METABOLIC [id number] 00:00:00 Test Item Value Reference Range Interpretation Comments GLUCOSE (test code = 2217) 84 MG/DL BUN (test code = 2208) 16 MG/DL CREATININE (test code = 2214) 1.03 MG/DL eGFR AMER. (test code 94 ML/MIN/1.73 = 72084) eGFR NON- AMER. (test 81 ML/MIN/1.73 code = 28932) CALC BUN/CREAT (test code = 16 RATIO 2235) SODIUM (test code = 2231) 139 MEQ/L POTASSIUM (test code = 2228) 4.4 MEQ/L CHLORIDE (test code = 2215) 100 MEQ/L CARBON DIOXIDE (test code = 27 MEQ/L 2206) CALCIUM (test code = 2209) 9.6 MG/DL PROTEIN, TOTAL (test code = 7.6 G/DL 222) ALBUMIN (test code = 2201) 4.5 G/DL CALC GLOBULIN (test code = 3.1 G/DL 2240) CALC A/G RATIO (test code = 1.5 RATIO 2234) BILIRUBIN, TOTAL (test code = 0.3 MG/DL 2206) ALKALINE PHOSPHATASE (test 122 U/L code = 2203) AST (test code = 2218) 20 U/L ALT (test code = 2219) 31 U/L COMPREHENSIVE METABOLIC [id number] 00:00:00 Test Item Value Reference Range Interpretation Comments GLUCOSE (test code = 2217) 84 MG/DL BUN (test code = 2208) 16 MG/DL CREATININE (test code = 2214) 1.03 MG/DL eGFR AMER. (test code 94 ML/MIN/1.73 = 85744) eGFR NON- AMER. (test 81 ML/MIN/1.73 code = 83660) CALC BUN/CREAT (test code = 16 RATIO 2235) SODIUM (test code = 2231) 139 MEQ/L POTASSIUM (test code = 2228) 4.4 MEQ/L CHLORIDE (test code = 2215) 100 MEQ/L CARBON DIOXIDE (test code = 27 MEQ/L 220) CALCIUM (test code = 2209) 9.6 MG/DL PROTEIN, TOTAL (test code = 7.6 G/DL 222) ALBUMIN (test code = 2201) 4.5 G/DL CALC GLOBULIN (test code = 3.1 G/DL 2240) CALC A/G RATIO (test code = 1.5 RATIO 2234) BILIRUBIN, TOTAL (test code = 0.3 MG/DL 2206) ALKALINE PHOSPHATASE (test 122 U/L code = 2204) AST (test code = 2218) 20 U/L ALT (test code = 2219) 31 U/L HEMOGLOBIN [id number] 00:00:00 Test Item Value Reference Range Interpretation Comments HEMOGLOBIN A1c (test code = 64787) 5.9 % HEMOGLOBIN [id number] 00:00:00 Test Item Value Reference Range Interpretation Comments HEMOGLOBIN A1c (test code = 32084) 5.9 % HEMOGLOBIN [id number] 00:00:00 Test Item Value Reference Range Interpretation Comments HEMOGLOBIN A1c (test code = 92289) 5.9 % LIPID [id number] 00:00:00 Test Item Value Reference Range Interpretation Comments CHOLESTEROL (test code = 2210) 281 MG/DL TRIGLYCERIDES (test code = 2232) 352 MG/DL HDL CHOLESTEROL (test code = 2220) 49 MG/DL CALC LDL CHOL (test code = 2237) 162 MG/DL RISK RATIO LDL/HDL (test code = 3.30 RATIO 2238) LIPID [id number] 00:00:00 Test Item Value Reference Range Interpretation Comments CHOLESTEROL (test code = 2210) 281 MG/DL TRIGLYCERIDES (test code = 2232) 352 MG/DL HDL CHOLESTEROL (test code = 2220) 49 MG/DL CALC LDL CHOL (test code = 2237) 162 MG/DL RISK RATIO LDL/HDL (test code = 3.30 RATIO 2238) CBC W/AUTO [id number] 00:00:00 Test Item Value Reference Range Interpretation Comments WBC (test code = 1001) 9.3 K/UL RBC (test code = 1002) 4.79 M/UL HEMOGLOBIN (test code = 1003) 15.0 G/DL HEMATOCRIT (test code = 1004) 43.6 % MCV (test code = 1005) 91.0 fL MCH (test code = 1006) 31.3 PG MCHC (test code = 1007) 34.4 G/DL RDW (test code = 1038) 13.1 % NEUTROPHILS (test code = 1008) 60.2 % LYMPHOCYTES (test code = 1010) 28.2 % MONOCYTES (test code = 1011) 7.1 % EOSINOPHILS (test code = 1012) 3.9 % BASOPHILS (test code = 1013) 0.6 % PLATELET COUNT (test code = 1015) 287 K/UL CBC W/AUTO [id number] 00:00:00 Test Item Value Reference Range Interpretation Comments WBC (test code = 1001) 9.3 K/UL RBC (test code = 1002) 4.79 M/UL HEMOGLOBIN (test code = 1003) 15.0 G/DL HEMATOCRIT (test code = 1004) 43.6 % MCV (test code = 1005) 91.0 fL MCH (test code = 1006) 31.3 PG MCHC (test code = 1007) 34.4 G/DL RDW (test code = 1038) 13.1 % NEUTROPHILS (test code = 1008) 60.2 % LYMPHOCYTES (test code = 1010) 28.2 % MONOCYTES (test code = 1011) 7.1 % EOSINOPHILS (test code = 1012) 3.9 % BASOPHILS (test code = 1013) 0.6 % PLATELET COUNT (test code = 1015) 287 K/UL CBC W/AUTO [id number] 00:00:00 Test Item Value Reference Range Interpretation Comments WBC (test code = 1001) 9.3 K/UL RBC (test code = 1002) 4.79 M/UL HEMOGLOBIN (test code = 1003) 15.0 G/DL HEMATOCRIT (test code = 1004) 43.6 % MCV (test code = 1005) 91.0 fL MCH (test code = 1006) 31.3 PG MCHC (test code = 1007) 34.4 G/DL RDW (test code = 1038) 13.1 % NEUTROPHILS (test code = 1008) 60.2 % LYMPHOCYTES (test code = 1010) 28.2 % MONOCYTES (test code = 1011) 7.1 % EOSINOPHILS (test code = 1012) 3.9 % BASOPHILS (test code = 1013) 0.6 % PLATELET COUNT (test code = 1015) 287 K/UL CBC W/AUTO [id number] 00:00:00 Test Item Value Reference Range Interpretation Comments WBC (test code = 1001) 9.3 K/UL RBC (test code = 1002) 4.79 M/UL HEMOGLOBIN (test code = 1003) 15.0 G/DL HEMATOCRIT (test code = 1004) 43.6 % MCV (test code = 1005) 91.0 fL MCH (test code = 1006) 31.3 PG MCHC (test code = 1007) 34.4 G/DL RDW (test code = 1038) 13.1 % NEUTROPHILS (test code = 1008) 60.2 % LYMPHOCYTES (test code = 1010) 28.2 % MONOCYTES (test code = 1011) 7.1 % EOSINOPHILS (test code = 1012) 3.9 % BASOPHILS (test code = 1013) 0.6 % PLATELET COUNT (test code = 1015) 287 K/UL COMPREHENSIVE METABOLIC [id number] 00:00:00 Test Item Value Reference Range Interpretation Comments GLUCOSE (test code = 2217) 84 MG/DL BUN (test code = 2208) 16 MG/DL CREATININE (test code = 2214) 1.03 MG/DL eGFR AMER. (test code 94 ML/MIN/1.73 = 48692) eGFR NON- AMER. (test 81 ML/MIN/1.73 code = 15489) CALC BUN/CREAT (test code = 16 RATIO 2235) SODIUM (test code = 2231) 139 MEQ/L POTASSIUM (test code = 2228) 4.4 MEQ/L CHLORIDE (test code = 2215) 100 MEQ/L CARBON DIOXIDE (test code = 27 MEQ/L 2205) CALCIUM (test code = 2209) 9.6 MG/DL PROTEIN, TOTAL (test code = 7.6 G/DL 2228) ALBUMIN (test code = 2201) 4.5 G/DL CALC GLOBULIN (test code = 3.1 G/DL 2240) CALC A/G RATIO (test code = 1.5 RATIO 2234) BILIRUBIN, TOTAL (test code = 0.3 MG/DL 2206) ALKALINE PHOSPHATASE (test 122 U/L code = 2204) AST (test code = 2218) 20 U/L ALT (test code = 2219) 31 U/L COMPREHENSIVE METABOLIC [id number] 00:00:00 Test Item Value Reference Range Interpretation Comments GLUCOSE (test code = 2217) 84 MG/DL BUN (test code = 2208) 16 MG/DL CREATININE (test code = 2214) 1.03 MG/DL eGFR AMER. (test code 94 ML/MIN/1.73 = 32424) eGFR NON- AMER. (test 81 ML/MIN/1.73 code = 78983) CALC BUN/CREAT (test code = 16 RATIO 2235) SODIUM (test code = 2231) 139 MEQ/L POTASSIUM (test code = 2228) 4.4 MEQ/L CHLORIDE (test code = 2215) 100 MEQ/L CARBON DIOXIDE (test code = 27 MEQ/L 2205) CALCIUM (test code = 2209) 9.6 MG/DL PROTEIN, TOTAL (test code = 7.6 G/DL 2228) ALBUMIN (test code = 2201) 4.5 G/DL CALC GLOBULIN (test code = 3.1 G/DL 2239) CALC A/G RATIO (test code = 1.5 RATIO 4) BILIRUBIN, TOTAL (test code = 0.3 MG/DL 2206) ALKALINE PHOSPHATASE (test 122 U/L code = 2204) AST (test code = 2218) 20 U/L ALT (test code = 2219) 31 U/L HEMOGLOBIN [id number] 00:00:00 Test Item Value Reference Range Interpretation Comments HEMOGLOBIN A1c (test code = 69861) 5.9 % HEMOGLOBIN [id number] 00:00:00 Test Item Value Reference Range Interpretation Comments HEMOGLOBIN A1c (test code = 60300) 5.9 % HEMOGLOBIN [id number] 00:00:00 Test Item Value Reference Range Interpretation Comments HEMOGLOBIN A1c (test code = 67997) 5.9 % LIPID [id number] 00:00:00 Test Item Value Reference Range Interpretation Comments CHOLESTEROL (test code = 2210) 281 MG/DL TRIGLYCERIDES (test code = 2232) 352 MG/DL HDL CHOLESTEROL (test code = 2220) 49 MG/DL CALC LDL CHOL (test code = 2237) 162 MG/DL RISK RATIO LDL/HDL (test code = 3.30 RATIO 2238) LIPID [id number] 00:00:00 Test Item Value Reference Range Interpretation Comments CHOLESTEROL (test code = 2210) 281 MG/DL TRIGLYCERIDES (test code = 2232) 352 MG/DL HDL CHOLESTEROL (test code = 2220) 49 MG/DL CALC LDL CHOL (test code = 2237) 162 MG/DL RISK RATIO LDL/HDL (test code = 3.30 RATIO 2238) CBC W/AUTO [id number] 00:00:00 Test Item Value Reference Range Interpretation Comments WBC (test code = 1001) 9.3 K/UL RBC (test code = 1002) 4.79 M/UL HEMOGLOBIN (test code = 1003) 15.0 G/DL HEMATOCRIT (test code = 1004) 43.6 % MCV (test code = 1005) 91.0 fL MCH (test code = 1006) 31.3 PG MCHC (test code = 1007) 34.4 G/DL RDW (test code = 1038) 13.1 % NEUTROPHILS (test code = 1008) 60.2 % LYMPHOCYTES (test code = 1010) 28.2 % MONOCYTES (test code = 1011) 7.1 % EOSINOPHILS (test code = 1012) 3.9 % BASOPHILS (test code = 1013) 0.6 % PLATELET COUNT (test code = 1015) 287 K/UL CBC W/AUTO [id number] 00:00:00 Test Item Value Reference Range Interpretation Comments WBC (test code = 1001) 9.3 K/UL RBC (test code = 1002) 4.79 M/UL HEMOGLOBIN (test code = 1003) 15.0 G/DL HEMATOCRIT (test code = 1004) 43.6 % MCV (test code = 1005) 91.0 fL MCH (test code = 1006) 31.3 PG MCHC (test code = 1007) 34.4 G/DL RDW (test code = 1038) 13.1 % NEUTROPHILS (test code = 1008) 60.2 % LYMPHOCYTES (test code = 1010) 28.2 % MONOCYTES (test code = 1011) 7.1 % EOSINOPHILS (test code = 1012) 3.9 % BASOPHILS (test code = 1013) 0.6 % PLATELET COUNT (test code = 1015) 287 K/UL COMPREHENSIVE METABOLIC [id number] 00:00:00 Test Item Value Reference Range Interpretation Comments GLUCOSE (test code = 2217) 84 MG/DL BUN (test code = 2208) 16 MG/DL CREATININE (test code = 2214) 1.03 MG/DL eGFR AMER. (test code 94 ML/MIN/1.73 = 25078) eGFR NON- AMER. (test 81 ML/MIN/1.73 code = 33133) CALC BUN/CREAT (test code = 16 RATIO 2235) SODIUM (test code = 2231) 139 MEQ/L POTASSIUM (test code = 2228) 4.4 MEQ/L CHLORIDE (test code = 2215) 100 MEQ/L CARBON DIOXIDE (test code = 27 MEQ/L 2206) CALCIUM (test code = 2209) 9.6 MG/DL PROTEIN, TOTAL (test code = 7.6 G/DL 2228) ALBUMIN (test code = 2201) 4.5 G/DL CALC GLOBULIN (test code = 3.1 G/DL 2240) CALC A/G RATIO (test code = 1.5 RATIO 2234) BILIRUBIN, TOTAL (test code = 0.3 MG/DL 7) ALKALINE PHOSPHATASE (test 122 U/L code = 2204) AST (test code = 2218) 20 U/L ALT (test code = 2219) 31 U/L COMPREHENSIVE METABOLIC [id number] 00:00:00 Test Item Value Reference Range Interpretation Comments GLUCOSE (test code = 2217) 84 MG/DL BUN (test code = 2208) 16 MG/DL CREATININE (test code = 2214) 1.03 MG/DL eGFR AMER. (test code 94 ML/MIN/1.73 = 66690) eGFR NON- AMER. (test 81 ML/MIN/1.73 code = 82750) CALC BUN/CREAT (test code = 16 RATIO 2235) SODIUM (test code = 2231) 139 MEQ/L POTASSIUM (test code = 2228) 4.4 MEQ/L CHLORIDE (test code = 2215) 100 MEQ/L CARBON DIOXIDE (test code = 27 MEQ/L 2205) CALCIUM (test code = 2209) 9.6 MG/DL PROTEIN, TOTAL (test code = 7.6 G/DL 9) ALBUMIN (test code = 2201) 4.5 G/DL CALC GLOBULIN (test code = 3.1 G/DL 2240) CALC A/G RATIO (test code = 1.5 RATIO 2234) BILIRUBIN, TOTAL (test code = 0.3 MG/DL 7) ALKALINE PHOSPHATASE (test 122 U/L code = 2204) AST (test code = 2218) 20 U/L ALT (test code = 2219) 31 U/L HEMOGLOBIN [id number] 00:00:00 Test Item Value Reference Range Interpretation Comments HEMOGLOBIN A1c (test code = 37918) 5.9 % HEMOGLOBIN [id number] 00:00:00 Test Item Value Reference Range Interpretation Comments HEMOGLOBIN A1c (test code = 75682) 5.9 % HEMOGLOBIN [id number] 00:00:00 Test Item Value Reference Range Interpretation Comments HEMOGLOBIN A1c (test code = 50636) 5.9 % LIPID [id number] 00:00:00 Test Item Value Reference Range Interpretation Comments CHOLESTEROL (test code = 2210) 281 MG/DL TRIGLYCERIDES (test code = 2232) 352 MG/DL HDL CHOLESTEROL (test code = 2220) 49 MG/DL CALC LDL CHOL (test code = 2237) 162 MG/DL RISK RATIO LDL/HDL (test code = 3.30 RATIO 2238) LIPID [id number] 00:00:00 Test Item Value Reference Range Interpretation Comments CHOLESTEROL (test code = 2210) 281 MG/DL TRIGLYCERIDES (test code = 2232) 352 MG/DL HDL CHOLESTEROL (test code = 2220) 49 MG/DL CALC LDL CHOL (test code = 2237) 162 MG/DL RISK RATIO LDL/HDL (test code = 3.30 RATIO 2238) COMPREHENSIVE METABOLIC [id number] 00:00:00 Test Item Value Reference Range Interpretation Comments GLUCOSE (test code = 2217) 102 MG/DL BUN (test code = 2208) 18 MG/DL CREATININE (test code = 2214) 1.10 MG/DL eGFR AMER. (test code 88 ML/MIN/1.73 = 86655) eGFR NON- AMER. (test 76 ML/MIN/1.73 code = 74106) CALC BUN/CREAT (test code = 16 RATIO 2235) SODIUM (test code = 2231) 138 MEQ/L POTASSIUM (test code = 2228) 4.3 MEQ/L CHLORIDE (test code = 2215) 101 MEQ/L CARBON DIOXIDE (test code = 27 MEQ/L 2205) CALCIUM (test code = 2209) 9.5 MG/DL PROTEIN, TOTAL (test code = 7.8 G/DL 2228) ALBUMIN (test code = 2201) 4.4 G/DL CALC GLOBULIN (test code = 3.4 G/DL 2240) CALC A/G RATIO (test code = 1.3 RATIO 2234) BILIRUBIN, TOTAL (test code = 0.3 MG/DL 2206) ALKALINE PHOSPHATASE (test 110 U/L code = 2204) AST (test code = 2218) 22 U/L ALT (test code = 2219) 32 U/L COMPREHENSIVE METABOLIC [id number] 00:00:00 Test Item Value Reference Range Interpretation Comments GLUCOSE (test code = 2217) 102 MG/DL BUN (test code = 2208) 18 MG/DL CREATININE (test code = 2214) 1.10 MG/DL eGFR AMER. (test code 88 ML/MIN/1.73 = 28839) eGFR NON- AMER. (test 76 ML/MIN/1.73 code = 95982) CALC BUN/CREAT (test code = 16 RATIO 2235) SODIUM (test code = 2231) 138 MEQ/L POTASSIUM (test code = 2228) 4.3 MEQ/L CHLORIDE (test code = 2215) 101 MEQ/L CARBON DIOXIDE (test code = 27 MEQ/L 2205) CALCIUM (test code = 2209) 9.5 MG/DL PROTEIN, TOTAL (test code = 7.8 G/DL 2228) ALBUMIN (test code = 2201) 4.4 G/DL CALC GLOBULIN (test code = 3.4 G/DL 2239) CALC A/G RATIO (test code = 1.3 RATIO 2233) BILIRUBIN, TOTAL (test code = 0.3 MG/DL 2206) ALKALINE PHOSPHATASE (test 110 U/L code = 2204) AST (test code = 2218) 22 U/L ALT (test code = 2219) 32 U/L LIPID [id number] 00:00:00 Test Item Value Reference Range Interpretation Comments CHOLESTEROL (test code = 2210) 262 MG/DL TRIGLYCERIDES (test code = 2232) 189 MG/DL HDL CHOLESTEROL (test code = 2220) 58 MG/DL CALC LDL CHOL (test code = 2237) 166 MG/DL RISK RATIO LDL/HDL (test code = 2.87 RATIO 2238) LIPID [id number] 00:00:00 Test Item Value Reference Range Interpretation Comments CHOLESTEROL (test code = 2210) 262 MG/DL TRIGLYCERIDES (test code = 2232) 189 MG/DL HDL CHOLESTEROL (test code = 2220) 58 MG/DL CALC LDL CHOL (test code = 2237) 166 MG/DL RISK RATIO LDL/HDL (test code = 2.87 RATIO 2238) COMPREHENSIVE METABOLIC [id number] 00:00:00 Test Item Value Reference Range Interpretation Comments GLUCOSE (test code = 2217) 102 MG/DL BUN (test code = 2208) 18 MG/DL CREATININE (test code = 2214) 1.10 MG/DL eGFR AMER. (test code 88 ML/MIN/1.73 = 55938) eGFR NON- AMER. (test 76 ML/MIN/1.73 code = 20762) CALC BUN/CREAT (test code = 16 RATIO 2235) SODIUM (test code = 2231) 138 MEQ/L POTASSIUM (test code = 2228) 4.3 MEQ/L CHLORIDE (test code = 2215) 101 MEQ/L CARBON DIOXIDE (test code = 27 MEQ/L 2205) CALCIUM (test code = 2209) 9.5 MG/DL PROTEIN, TOTAL (test code = 7.8 G/DL 2228) ALBUMIN (test code = 2201) 4.4 G/DL CALC GLOBULIN (test code = 3.4 G/DL 2240) CALC A/G RATIO (test code = 1.3 RATIO 2234) BILIRUBIN, TOTAL (test code = 0.3 MG/DL 2206) ALKALINE PHOSPHATASE (test 110 U/L code = 2204) AST (test code = 2218) 22 U/L ALT (test code = 2219) 32 U/L COMPREHENSIVE METABOLIC [id number] 00:00:00 Test Item Value Reference Range Interpretation Comments GLUCOSE (test code = 2217) 102 MG/DL BUN (test code = 2208) 18 MG/DL CREATININE (test code = 2214) 1.10 MG/DL eGFR AMER. (test code 88 ML/MIN/1.73 = 24420) eGFR NON- AMER. (test 76 ML/MIN/1.73 code = 76229) CALC BUN/CREAT (test code = 16 RATIO 2235) SODIUM (test code = 2231) 138 MEQ/L POTASSIUM (test code = 2228) 4.3 MEQ/L CHLORIDE (test code = 2215) 101 MEQ/L CARBON DIOXIDE (test code = 27 MEQ/L 220) CALCIUM (test code = 2209) 9.5 MG/DL PROTEIN, TOTAL (test code = 7.8 G/DL 2228) ALBUMIN (test code = 2201) 4.4 G/DL CALC GLOBULIN (test code = 3.4 G/DL 2240) CALC A/G RATIO (test code = 1.3 RATIO 2234) BILIRUBIN, TOTAL (test code = 0.3 MG/DL 2206) ALKALINE PHOSPHATASE (test 110 U/L code = 2204) AST (test code = 2218) 22 U/L ALT (test code = 2219) 32 U/L LIPID [id number] 00:00:00 Test Item Value Reference Range Interpretation Comments CHOLESTEROL (test code = 2210) 262 MG/DL TRIGLYCERIDES (test code = 2232) 189 MG/DL HDL CHOLESTEROL (test code = 2220) 58 MG/DL CALC LDL CHOL (test code = 2237) 166 MG/DL RISK RATIO LDL/HDL (test code = 2.87 RATIO 2238) LIPID [id number] 00:00:00 Test Item Value Reference Range Interpretation Comments CHOLESTEROL (test code = 2210) 262 MG/DL TRIGLYCERIDES (test code = 2232) 189 MG/DL HDL CHOLESTEROL (test code = 2220) 58 MG/DL CALC LDL CHOL (test code = 2237) 166 MG/DL RISK RATIO LDL/HDL (test code = 2.87 RATIO 2238) COMPREHENSIVE METABOLIC [id number] 00:00:00 Test Item Value Reference Range Interpretation Comments GLUCOSE (test code = 2217) 102 MG/DL BUN (test code = 2208) 18 MG/DL CREATININE (test code = 2214) 1.10 MG/DL eGFR AMER. (test code 88 ML/MIN/1.73 = 85832) eGFR NON- AMER. (test 76 ML/MIN/1.73 code = 34407) CALC BUN/CREAT (test code = 16 RATIO 2235) SODIUM (test code = 2231) 138 MEQ/L POTASSIUM (test code = 2228) 4.3 MEQ/L CHLORIDE (test code = 2215) 101 MEQ/L CARBON DIOXIDE (test code = 27 MEQ/L 2205) CALCIUM (test code = 2209) 9.5 MG/DL PROTEIN, TOTAL (test code = 7.8 G/DL 2228) ALBUMIN (test code = 2201) 4.4 G/DL CALC GLOBULIN (test code = 3.4 G/DL 2240) CALC A/G RATIO (test code = 1.3 RATIO 2234) BILIRUBIN, TOTAL (test code = 0.3 MG/DL 2206) ALKALINE PHOSPHATASE (test 110 U/L code = 2204) AST (test code = 2218) 22 U/L ALT (test code = 2219) 32 U/L COMPREHENSIVE METABOLIC [id number] 00:00:00 Test Item Value Reference Range Interpretation Comments GLUCOSE (test code = 2217) 102 MG/DL BUN (test code = 2208) 18 MG/DL CREATININE (test code = 2214) 1.10 MG/DL eGFR AMER. (test code 88 ML/MIN/1.73 = 50586) eGFR NON- AMER. (test 76 ML/MIN/1.73 code = 20290) CALC BUN/CREAT (test code = 16 RATIO 2235) SODIUM (test code = 2231) 138 MEQ/L POTASSIUM (test code = 2228) 4.3 MEQ/L CHLORIDE (test code = 2215) 101 MEQ/L CARBON DIOXIDE (test code = 27 MEQ/L 2205) CALCIUM (test code = 2209) 9.5 MG/DL PROTEIN, TOTAL (test code = 7.8 G/DL 2228) ALBUMIN (test code = 2201) 4.4 G/DL CALC GLOBULIN (test code = 3.4 G/DL 224) CALC A/G RATIO (test code = 1.3 RATIO 2234) BILIRUBIN, TOTAL (test code = 0.3 MG/DL 2206) ALKALINE PHOSPHATASE (test 110 U/L code = 2204) AST (test code = 2218) 22 U/L ALT (test code = 2219) 32 U/L LIPID [id number] 00:00:00 Test Item Value Reference Range Interpretation Comments CHOLESTEROL (test code = 2210) 262 MG/DL TRIGLYCERIDES (test code = 2232) 189 MG/DL HDL CHOLESTEROL (test code = 2220) 58 MG/DL CALC LDL CHOL (test code = 2237) 166 MG/DL RISK RATIO LDL/HDL (test code = 2.87 RATIO 2238) LIPID [id number] 00:00:00 Test Item Value Reference Range Interpretation Comments CHOLESTEROL (test code = 2210) 262 MG/DL TRIGLYCERIDES (test code = 2232) 189 MG/DL HDL CHOLESTEROL (test code = 2220) 58 MG/DL CALC LDL CHOL (test code = 2237) 166 MG/DL RISK RATIO LDL/HDL (test code = 2.87 RATIO 2238) COMPREHENSIVE METABOLIC [id number] 00:00:00 Test Item Value Reference Range Interpretation Comments GLUCOSE (test code = 2217) 102 MG/DL BUN (test code = 2208) 18 MG/DL CREATININE (test code = 2214) 1.10 MG/DL eGFR AMER. (test code 88 ML/MIN/1.73 = 42018) eGFR NON- AMER. (test 76 ML/MIN/1.73 code = 83328) CALC BUN/CREAT (test code = 16 RATIO 2235) SODIUM (test code = 2231) 138 MEQ/L POTASSIUM (test code = 2228) 4.3 MEQ/L CHLORIDE (test code = 2215) 101 MEQ/L CARBON DIOXIDE (test code = 27 MEQ/L 2205) CALCIUM (test code = 2209) 9.5 MG/DL PROTEIN, TOTAL (test code = 7.8 G/DL 2228) ALBUMIN (test code = 2201) 4.4 G/DL CALC GLOBULIN (test code = 3.4 G/DL 2240) CALC A/G RATIO (test code = 1.3 RATIO 2234) BILIRUBIN, TOTAL (test code = 0.3 MG/DL 2206) ALKALINE PHOSPHATASE (test 110 U/L code = 2204) AST (test code = 2218) 22 U/L ALT (test code = 2219) 32 U/L COMPREHENSIVE METABOLIC [id number] 00:00:00 Test Item Value Reference Range Interpretation Comments GLUCOSE (test code = 2217) 102 MG/DL BUN (test code = 2208) 18 MG/DL CREATININE (test code = 2214) 1.10 MG/DL eGFR AMER. (test code 88 ML/MIN/1.73 = 49612) eGFR NON- AMER. (test 76 ML/MIN/1.73 code = 05528) CALC BUN/CREAT (test code = 16 RATIO 2235) SODIUM (test code = 2231) 138 MEQ/L POTASSIUM (test code = 2228) 4.3 MEQ/L CHLORIDE (test code = 2215) 101 MEQ/L CARBON DIOXIDE (test code = 27 MEQ/L 2205) CALCIUM (test code = 2209) 9.5 MG/DL PROTEIN, TOTAL (test code = 7.8 G/DL 2228) ALBUMIN (test code = 2201) 4.4 G/DL CALC GLOBULIN (test code = 3.4 G/DL 2240) CALC A/G RATIO (test code = 1.3 RATIO 2234) BILIRUBIN, TOTAL (test code = 0.3 MG/DL 2206) ALKALINE PHOSPHATASE (test 110 U/L code = 2204) AST (test code = 2218) 22 U/L ALT (test code = 2219) 32 U/L LIPID [id number] 00:00:00 Test Item Value Reference Range Interpretation Comments CHOLESTEROL (test code = 2210) 262 MG/DL TRIGLYCERIDES (test code = 2232) 189 MG/DL HDL CHOLESTEROL (test code = 2220) 58 MG/DL CALC LDL CHOL (test code = 2237) 166 MG/DL RISK RATIO LDL/HDL (test code = 2.87 RATIO 2238) LIPID [id number] 00:00:00 Test Item Value Reference Range Interpretation Comments CHOLESTEROL (test code = 2210) 262 MG/DL TRIGLYCERIDES (test code = 2232) 189 MG/DL HDL CHOLESTEROL (test code = 2220) 58 MG/DL CALC LDL CHOL (test code = 2237) 166 MG/DL RISK RATIO LDL/HDL (test code = 2.87 RATIO 2238) COMPREHENSIVE METABOLIC [id number] 00:00:00 Test Item Value Reference Range Interpretation Comments GLUCOSE (test code = 2217) 79 MG/DL BUN (test code = 2208) 14 MG/DL CREATININE (test code = 2214) 0.95 MG/DL eGFR AMER. (test code 105 ML/MIN/1.73 = 20701) eGFR NON- AMER. (test 91 ML/MIN/1.73 code = 41006) CALC BUN/CREAT (test code = 15 RATIO 2235) SODIUM (test code = 2231) 143 MEQ/L POTASSIUM (test code = 2228) 4.5 MEQ/L CHLORIDE (test code = 2215) 101 MEQ/L CARBON DIOXIDE (test code = 27 MEQ/L 2205) CALCIUM (test code = 2209) 9.6 MG/DL PROTEIN, TOTAL (test code = 7.4 G/DL 2228) ALBUMIN (test code = 2201) 4.2 G/DL CALC GLOBULIN (test code = 3.2 G/DL 0) CALC A/G RATIO (test code = 1.3 RATIO 2234) BILIRUBIN, TOTAL (test code = 0.4 MG/DL 2206) ALKALINE PHOSPHATASE (test 114 U/L code = 2204) AST (test code = 2218) 14 U/L ALT (test code = 2219) 23 U/L COMPREHENSIVE METABOLIC [id number] 00:00:00 Test Item Value Reference Range Interpretation Comments GLUCOSE (test code = 2217) 79 MG/DL BUN (test code = 2208) 14 MG/DL CREATININE (test code = 2214) 0.95 MG/DL eGFR AMER. (test code 105 ML/MIN/1.73 = 44252) eGFR NON- AMER. (test 91 ML/MIN/1.73 code = 66920) CALC BUN/CREAT (test code = 15 RATIO 2235) SODIUM (test code = 2231) 143 MEQ/L POTASSIUM (test code = 2228) 4.5 MEQ/L CHLORIDE (test code = 2215) 101 MEQ/L CARBON DIOXIDE (test code = 27 MEQ/L 2205) CALCIUM (test code = 2209) 9.6 MG/DL PROTEIN, TOTAL (test code = 7.4 G/DL 2228) ALBUMIN (test code = 2201) 4.2 G/DL CALC GLOBULIN (test code = 3.2 G/DL 2240) CALC A/G RATIO (test code = 1.3 RATIO 2234) BILIRUBIN, TOTAL (test code = 0.4 MG/DL 2206) ALKALINE PHOSPHATASE (test 114 U/L code = 2204) AST (test code = 2218) 14 U/L ALT (test code = 2219) 23 U/L LIPID [id number] 00:00:00 Test Item Value Reference Range Interpretation Comments CHOLESTEROL (test code = 2210) 242 MG/DL TRIGLYCERIDES (test code = 2232) 233 MG/DL HDL CHOLESTEROL (test code = 2220) 52 MG/DL CALC LDL CHOL (test code = 2237) 143 MG/DL RISK RATIO LDL/HDL (test code = 2.76 RATIO 2238) LIPID [id number] 00:00:00 Test Item Value Reference Range Interpretation Comments CHOLESTEROL (test code = 2210) 242 MG/DL TRIGLYCERIDES (test code = 2232) 233 MG/DL HDL CHOLESTEROL (test code = 2220) 52 MG/DL CALC LDL CHOL (test code = 2237) 143 MG/DL RISK RATIO LDL/HDL (test code = 2.76 RATIO 2238) COMPREHENSIVE METABOLIC [id number] 00:00:00 Test Item Value Reference Range Interpretation Comments GLUCOSE (test code = 2217) 79 MG/DL BUN (test code = 2208) 14 MG/DL CREATININE (test code = 2214) 0.95 MG/DL eGFR AMER. (test code 105 ML/MIN/1.73 = 60371) eGFR NON- AMER. (test 91 ML/MIN/1.73 code = 45010) CALC BUN/CREAT (test code = 15 RATIO 2235) SODIUM (test code = 2231) 143 MEQ/L POTASSIUM (test code = 2228) 4.5 MEQ/L CHLORIDE (test code = 2215) 101 MEQ/L CARBON DIOXIDE (test code = 27 MEQ/L 220) CALCIUM (test code = 2209) 9.6 MG/DL PROTEIN, TOTAL (test code = 7.4 G/DL 2228) ALBUMIN (test code = 2201) 4.2 G/DL CALC GLOBULIN (test code = 3.2 G/DL 2240) CALC A/G RATIO (test code = 1.3 RATIO 2234) BILIRUBIN, TOTAL (test code = 0.4 MG/DL 2206) ALKALINE PHOSPHATASE (test 114 U/L code = 2204) AST (test code = 2218) 14 U/L ALT (test code = 2219) 23 U/L COMPREHENSIVE METABOLIC [id number] 00:00:00 Test Item Value Reference Range Interpretation Comments GLUCOSE (test code = 2217) 79 MG/DL BUN (test code = 2208) 14 MG/DL CREATININE (test code = 2214) 0.95 MG/DL eGFR AMER. (test code 105 ML/MIN/1.73 = 56641) eGFR NON- AMER. (test 91 ML/MIN/1.73 code = 12201) CALC BUN/CREAT (test code = 15 RATIO 2235) SODIUM (test code = 2231) 143 MEQ/L POTASSIUM (test code = 2228) 4.5 MEQ/L CHLORIDE (test code = 2215) 101 MEQ/L CARBON DIOXIDE (test code = 27 MEQ/L 2206) CALCIUM (test code = 2209) 9.6 MG/DL PROTEIN, TOTAL (test code = 7.4 G/DL 2228) ALBUMIN (test code = 2201) 4.2 G/DL CALC GLOBULIN (test code = 3.2 G/DL 2240) CALC A/G RATIO (test code = 1.3 RATIO 2234) BILIRUBIN, TOTAL (test code = 0.4 MG/DL 2206) ALKALINE PHOSPHATASE (test 114 U/L code = 2204) AST (test code = 2218) 14 U/L ALT (test code = 2219) 23 U/L LIPID [id number] 00:00:00 Test Item Value Reference Range Interpretation Comments CHOLESTEROL (test code = 2210) 242 MG/DL TRIGLYCERIDES (test code = 2232) 233 MG/DL HDL CHOLESTEROL (test code = 2220) 52 MG/DL CALC LDL CHOL (test code = 2237) 143 MG/DL RISK RATIO LDL/HDL (test code = 2.76 RATIO 2238) LIPID [id number] 00:00:00 Test Item Value Reference Range Interpretation Comments CHOLESTEROL (test code = 2210) 242 MG/DL TRIGLYCERIDES (test code = 2232) 233 MG/DL HDL CHOLESTEROL (test code = 2220) 52 MG/DL CALC LDL CHOL (test code = 2237) 143 MG/DL RISK RATIO LDL/HDL (test code = 2.76 RATIO 2238) COMPREHENSIVE METABOLIC [id number] 00:00:00 Test Item Value Reference Range Interpretation Comments GLUCOSE (test code = 2217) 79 MG/DL BUN (test code = 2208) 14 MG/DL CREATININE (test code = 2214) 0.95 MG/DL eGFR AMER. (test code 105 ML/MIN/1.73 = 76521) eGFR NON- AMER. (test 91 ML/MIN/1.73 code = 36642) CALC BUN/CREAT (test code = 15 RATIO 2235) SODIUM (test code = 2231) 143 MEQ/L POTASSIUM (test code = 2228) 4.5 MEQ/L CHLORIDE (test code = 2215) 101 MEQ/L CARBON DIOXIDE (test code = 27 MEQ/L 2205) CALCIUM (test code = 2209) 9.6 MG/DL PROTEIN, TOTAL (test code = 7.4 G/DL 2228) ALBUMIN (test code = 2201) 4.2 G/DL CALC GLOBULIN (test code = 3.2 G/DL 2240) CALC A/G RATIO (test code = 1.3 RATIO 2234) BILIRUBIN, TOTAL (test code = 0.4 MG/DL 7) ALKALINE PHOSPHATASE (test 114 U/L code = 2204) AST (test code = 2218) 14 U/L ALT (test code = 2219) 23 U/L COMPREHENSIVE METABOLIC [id number] 00:00:00 Test Item Value Reference Range Interpretation Comments GLUCOSE (test code = 2217) 79 MG/DL BUN (test code = 2208) 14 MG/DL CREATININE (test code = 2214) 0.95 MG/DL eGFR AMER. (test code 105 ML/MIN/1.73 = 12996) eGFR NON- AMER. (test 91 ML/MIN/1.73 code = 62145) CALC BUN/CREAT (test code = 15 RATIO 2235) SODIUM (test code = 2231) 143 MEQ/L POTASSIUM (test code = 2228) 4.5 MEQ/L CHLORIDE (test code = 2215) 101 MEQ/L CARBON DIOXIDE (test code = 27 MEQ/L 2206) CALCIUM (test code = 2209) 9.6 MG/DL PROTEIN, TOTAL (test code = 7.4 G/DL 2228) ALBUMIN (test code = 2201) 4.2 G/DL CALC GLOBULIN (test code = 3.2 G/DL 2240) CALC A/G RATIO (test code = 1.3 RATIO 2234) BILIRUBIN, TOTAL (test code = 0.4 MG/DL 2206) ALKALINE PHOSPHATASE (test 114 U/L code = 2204) AST (test code = 2218) 14 U/L ALT (test code = 2219) 23 U/L COMPREHENSIVE METABOLIC [id number] 00:00:00 Test Item Value Reference Range Interpretation Comments GLUCOSE (test code = 2217) 79 MG/DL BUN (test code = 2208) 14 MG/DL CREATININE (test code = 2214) 0.95 MG/DL eGFR AMER. (test code 105 ML/MIN/1.73 = 77222) eGFR NON- AMER. (test 91 ML/MIN/1.73 code = 24943) CALC BUN/CREAT (test code = 15 RATIO 2235) SODIUM (test code = 2231) 143 MEQ/L POTASSIUM (test code = 2228) 4.5 MEQ/L CHLORIDE (test code = 2215) 101 MEQ/L CARBON DIOXIDE (test code = 27 MEQ/L 2205) CALCIUM (test code = 220) 9.6 MG/DL PROTEIN, TOTAL (test code = 7.4 G/DL 2228) ALBUMIN (test code = 2201) 4.2 G/DL CALC GLOBULIN (test code = 3.2 G/DL 2239) CALC A/G RATIO (test code = 1.3 RATIO 2234) BILIRUBIN, TOTAL (test code = 0.4 MG/DL 2206) ALKALINE PHOSPHATASE (test 114 U/L code = 2204) AST (test code = 2218) 14 U/L ALT (test code = 2219) 23 U/L LIPID [id number] 00:00:00 Test Item Value Reference Range Interpretation Comments CHOLESTEROL (test code = 2210) 242 MG/DL TRIGLYCERIDES (test code = 2232) 233 MG/DL HDL CHOLESTEROL (test code = 2220) 52 MG/DL CALC LDL CHOL (test code = 2237) 143 MG/DL RISK RATIO LDL/HDL (test code = 2.76 RATIO 2238) COMPREHENSIVE METABOLIC [id number] 00:00:00 Test Item Value Reference Range Interpretation Comments GLUCOSE (test code = 2217) 79 MG/DL BUN (test code = 2208) 14 MG/DL CREATININE (test code = 2214) 0.95 MG/DL eGFR AMER. (test code 105 ML/MIN/1.73 = 07264) eGFR NON- AMER. (test 91 ML/MIN/1.73 code = 66394) CALC BUN/CREAT (test code = 15 RATIO 2235) SODIUM (test code = 2231) 143 MEQ/L POTASSIUM (test code = 2228) 4.5 MEQ/L CHLORIDE (test code = 2215) 101 MEQ/L CARBON DIOXIDE (test code = 27 MEQ/L 2205) CALCIUM (test code = 220) 9.6 MG/DL PROTEIN, TOTAL (test code = 7.4 G/DL 2228) ALBUMIN (test code = 2201) 4.2 G/DL CALC GLOBULIN (test code = 3.2 G/DL 2239) CALC A/G RATIO (test code = 1.3 RATIO 2234) BILIRUBIN, TOTAL (test code = 0.4 MG/DL 2206) ALKALINE PHOSPHATASE (test 114 U/L code = 2204) AST (test code = 2218) 14 U/L ALT (test code = 2219) 23 U/L LIPID [id number] 00:00:00 Test Item Value Reference Range Interpretation Comments CHOLESTEROL (test code = 2210) 242 MG/DL TRIGLYCERIDES (test code = 2232) 233 MG/DL HDL CHOLESTEROL (test code = 2220) 52 MG/DL CALC LDL CHOL (test code = 2237) 143 MG/DL RISK RATIO LDL/HDL (test code = 2.76 RATIO 2238) LIPID [id number] 00:00:00 Test Item Value Reference Range Interpretation Comments CHOLESTEROL (test code = 2210) 242 MG/DL TRIGLYCERIDES (test code = 2232) 233 MG/DL HDL CHOLESTEROL (test code = 2220) 52 MG/DL CALC LDL CHOL (test code = 2237) 143 MG/DL RISK RATIO LDL/HDL (test code = 2.76 RATIO 2238) LIPID [id number] 00:00:00 Test Item Value Reference Range Interpretation Comments CHOLESTEROL (test code = 2210) 242 MG/DL TRIGLYCERIDES (test code = 2232) 233 MG/DL HDL CHOLESTEROL (test code = 2220) 52 MG/DL CALC LDL CHOL (test code = 2237) 143 MG/DL RISK RATIO LDL/HDL (test code = 2.76 RATIO 2238) COMPREHENSIVE METABOLIC [id number] 00:00:00 Test Item Value Reference Range Interpretation Comments GLUCOSE (test code = 2217) 108 MG/DL BUN (test code = 2208) 16 MG/DL CREATININE (test code = 2214) 0.95 MG/DL eGFR AMER. (test code 107 ML/MIN/1.73 = 23453) eGFR NON- AMER. (test 92 ML/MIN/1.73 code = 92523) CALCULATED BUN/CREAT (test 17 RATIO code = 2235) SODIUM (test code = 2231) 141 MEQ/L POTASSIUM (test code = 2228) 3.8 MEQ/L CHLORIDE (test code = 2215) 101 MEQ/L CARBON DIOXIDE (test code = 25 MEQ/L 2205) CALCIUM (test code = 2209) 9.1 MG/DL PROTEIN, TOTAL (test code = 7.2 G/DL 2228) ALBUMIN (test code = 2201) 3.9 G/DL CALCULATED GLOBULIN (test 3.3 G/DL code = 2240) CALCULATED A/G RATIO (test 1.2 RATIO code = 2234) BILIRUBIN, TOTAL (test code = 0.5 MG/DL 220) ALKALINE PHOSPHATASE (test 90 U/L code = 2204) SGOT (AST) (test code = 2218) 17 U/L SGPT (ALT) (test code = 2219) 28 U/L COMPREHENSIVE METABOLIC [id number] 00:00:00 Test Item Value Reference Range Interpretation Comments GLUCOSE (test code = 2217) 108 MG/DL BUN (test code = 2208) 16 MG/DL CREATININE (test code = 2214) 0.95 MG/DL eGFR AMER. (test code 107 ML/MIN/1.73 = 18720) eGFR NON- AMER. (test 92 ML/MIN/1.73 code = 73971) CALCULATED BUN/CREAT (test 17 RATIO code = 2235) SODIUM (test code = 2231) 141 MEQ/L POTASSIUM (test code = 2228) 3.8 MEQ/L CHLORIDE (test code = 2215) 101 MEQ/L CARBON DIOXIDE (test code = 25 MEQ/L 220) CALCIUM (test code = 2209) 9.1 MG/DL PROTEIN, TOTAL (test code = 7.2 G/DL 2228) ALBUMIN (test code = 2201) 3.9 G/DL CALCULATED GLOBULIN (test 3.3 G/DL code = 2240) CALCULATED A/G RATIO (test 1.2 RATIO code = 2234) BILIRUBIN, TOTAL (test code = 0.5 MG/DL 2207) ALKALINE PHOSPHATASE (test 90 U/L code = 2204) SGOT (AST) (test code = 2218) 17 U/L SGPT (ALT) (test code = 2219) 28 U/L LIPID [id number] 00:00:00 Test Item Value Reference Range Interpretation Comments CHOLESTEROL (test code = 2210) 249 MG/DL TRIGLYCERIDES (test code = 2232) 156 MG/DL HDL CHOLESTEROL (test code = 2220) 55 MG/DL CALCULATED LDL CHOL (test code = 163 MG/DL 2237) RISK RATIO LDL/HDL (test code = 2.96 RATIO 2238) LIPID [id number] 00:00:00 Test Item Value Reference Range Interpretation Comments CHOLESTEROL (test code = 2210) 249 MG/DL TRIGLYCERIDES (test code = 2232) 156 MG/DL HDL CHOLESTEROL (test code = 2220) 55 MG/DL CALCULATED LDL CHOL (test code = 163 MG/DL 2236) RISK RATIO LDL/HDL (test code = 2.96 RATIO 8) CBC W/AUTO [id number] 00:00:00 Test Item Value Reference Range Interpretation Comments WBC (test code = 1001) 7.1 K/UL RBC (test code = 1002) 4.72 M/UL HEMOGLOBIN (test code = 1003) 14.8 G/DL HEMATOCRIT (test code = 1004) 43.9 % MCV (test code = 1005) 93.0 fL MCH (test code = 1006) 31.4 PG MCHC (test code = 1007) 33.7 G/DL RDW (test code = 1038) 14.1 % NEUTROPHILS (test code = 1008) 48 % LYMPHOCYTES (test code = 1010) 34 % MONOCYTES (test code = 1011) 9 % EOSINOPHILS (test code = 1012) 8 % BASOPHILS (test code = 1013) 1 % PLATELET COUNT (test code = 1015) 276 K/UL CBC W/AUTO [id number] 00:00:00 Test Item Value Reference Range Interpretation Comments WBC (test code = 1001) 7.1 K/UL RBC (test code = 1002) 4.72 M/UL HEMOGLOBIN (test code = 1003) 14.8 G/DL HEMATOCRIT (test code = 1004) 43.9 % MCV (test code = 1005) 93.0 fL MCH (test code = 1006) 31.4 PG MCHC (test code = 1007) 33.7 G/DL RDW (test code = 1038) 14.1 % NEUTROPHILS (test code = 1008) 48 % LYMPHOCYTES (test code = 1010) 34 % MONOCYTES (test code = 1011) 9 % EOSINOPHILS (test code = 1012) 8 % BASOPHILS (test code = 1013) 1 % PLATELET COUNT (test code = 1015) 276 K/UL CBC W/AUTO [id number] 00:00:00 Test Item Value Reference Range Interpretation Comments WBC (test code = 1001) 7.1 K/UL RBC (test code = 1002) 4.72 M/UL HEMOGLOBIN (test code = 1003) 14.8 G/DL HEMATOCRIT (test code = 1004) 43.9 % MCV (test code = 1005) 93.0 fL MCH (test code = 1006) 31.4 PG MCHC (test code = 1007) 33.7 G/DL RDW (test code = 1038) 14.1 % NEUTROPHILS (test code = 1008) 48 % LYMPHOCYTES (test code = 1010) 34 % MONOCYTES (test code = 1011) 9 % EOSINOPHILS (test code = 1012) 8 % BASOPHILS (test code = 1013) 1 % PLATELET COUNT (test code = 1015) 276 K/UL HEMOGLOBIN [id number] 00:00:00 Test Item Value Reference Range Interpretation Comments HEMOGLOBIN A1c (test code = 63700) 5.9 % HEMOGLOBIN [id number] 00:00:00 Test Item Value Reference Range Interpretation Comments HEMOGLOBIN A1c (test code = 58046) 5.9 % HEMOGLOBIN [id number] 00:00:00 Test Item Value Reference Range Interpretation Comments HEMOGLOBIN A1c (test code = 07169) 5.9 % [id number] 00:00:00 Test Item Value Reference Range Interpretation Comments TSH (test code = 2821) 2.1 UIU/ML [id number] 00:00:00 Test Item Value Reference Range Interpretation Comments TSH (test code = 2821) 2.1 UIU/ML [id number] 00:00:00 Test Item Value Reference Range Interpretation Comments TSH (test code = 2821) 2.1 UIU/ML COMPREHENSIVE METABOLIC [id number] 00:00:00 Test Item Value Reference Range Interpretation Comments GLUCOSE (test code = 2217) 108 MG/DL BUN (test code = 2208) 16 MG/DL CREATININE (test code = 2214) 0.95 MG/DL eGFR AMER. (test code 107 ML/MIN/1.73 = 27079) eGFR NON- AMER. (test 92 ML/MIN/1.73 code = 37083) CALCULATED BUN/CREAT (test 17 RATIO code = 2235) SODIUM (test code = 2231) 141 MEQ/L POTASSIUM (test code = 2228) 3.8 MEQ/L CHLORIDE (test code = 2215) 101 MEQ/L CARBON DIOXIDE (test code = 25 MEQ/L 2205) CALCIUM (test code = 2209) 9.1 MG/DL PROTEIN, TOTAL (test code = 7.2 G/DL 2228) ALBUMIN (test code = 2201) 3.9 G/DL CALCULATED GLOBULIN (test 3.3 G/DL code = 2240) CALCULATED A/G RATIO (test 1.2 RATIO code = 2234) BILIRUBIN, TOTAL (test code = 0.5 MG/DL 2206) ALKALINE PHOSPHATASE (test 90 U/L code = 2204) SGOT (AST) (test code = 2218) 17 U/L SGPT (ALT) (test code = 2219) 28 U/L COMPREHENSIVE METABOLIC [id number] 00:00:00 Test Item Value Reference Range Interpretation Comments GLUCOSE (test code = 2217) 108 MG/DL BUN (test code = 2208) 16 MG/DL CREATININE (test code = 2214) 0.95 MG/DL eGFR AMER. (test code 107 ML/MIN/1.73 = 72492) eGFR NON- AMER. (test 92 ML/MIN/1.73 code = 11805) CALCULATED BUN/CREAT (test 17 RATIO code = 2235) SODIUM (test code = 2231) 141 MEQ/L POTASSIUM (test code = 2228) 3.8 MEQ/L CHLORIDE (test code = 2215) 101 MEQ/L CARBON DIOXIDE (test code = 25 MEQ/L 2205) CALCIUM (test code = 2209) 9.1 MG/DL PROTEIN, TOTAL (test code = 7.2 G/DL 2228) ALBUMIN (test code = 2201) 3.9 G/DL CALCULATED GLOBULIN (test 3.3 G/DL code = 2240) CALCULATED A/G RATIO (test 1.2 RATIO code = 2234) BILIRUBIN, TOTAL (test code = 0.5 MG/DL 2206) ALKALINE PHOSPHATASE (test 90 U/L code = 2204) SGOT (AST) (test code = 2218) 17 U/L SGPT (ALT) (test code = 2219) 28 U/L LIPID [id number] 00:00:00 Test Item Value Reference Range Interpretation Comments CHOLESTEROL (test code = 2210) 249 MG/DL TRIGLYCERIDES (test code = 2232) 156 MG/DL HDL CHOLESTEROL (test code = 2220) 55 MG/DL CALCULATED LDL CHOL (test code = 163 MG/DL 2236) RISK RATIO LDL/HDL (test code = 2.96 RATIO 2238) LIPID [id number] 00:00:00 Test Item Value Reference Range Interpretation Comments CHOLESTEROL (test code = 2210) 249 MG/DL TRIGLYCERIDES (test code = 2232) 156 MG/DL HDL CHOLESTEROL (test code = 2220) 55 MG/DL CALCULATED LDL CHOL (test code = 163 MG/DL 2237) RISK RATIO LDL/HDL (test code = 2.96 RATIO 2238) CBC W/AUTO [id number] 00:00:00 Test Item Value Reference Range Interpretation Comments WBC (test code = 1001) 7.1 K/UL RBC (test code = 1002) 4.72 M/UL HEMOGLOBIN (test code = 1003) 14.8 G/DL HEMATOCRIT (test code = 1004) 43.9 % MCV (test code = 1005) 93.0 fL MCH (test code = 1006) 31.4 PG MCHC (test code = 1007) 33.7 G/DL RDW (test code = 1038) 14.1 % NEUTROPHILS (test code = 1008) 48 % LYMPHOCYTES (test code = 1010) 34 % MONOCYTES (test code = 1011) 9 % EOSINOPHILS (test code = 1012) 8 % BASOPHILS (test code = 1013) 1 % PLATELET COUNT (test code = 1015) 276 K/UL CBC W/AUTO [id number] 00:00:00 Test Item Value Reference Range Interpretation Comments WBC (test code = 1001) 7.1 K/UL RBC (test code = 1002) 4.72 M/UL HEMOGLOBIN (test code = 1003) 14.8 G/DL HEMATOCRIT (test code = 1004) 43.9 % MCV (test code = 1005) 93.0 fL MCH (test code = 1006) 31.4 PG MCHC (test code = 1007) 33.7 G/DL RDW (test code = 1038) 14.1 % NEUTROPHILS (test code = 1008) 48 % LYMPHOCYTES (test code = 1010) 34 % MONOCYTES (test code = 1011) 9 % EOSINOPHILS (test code = 1012) 8 % BASOPHILS (test code = 1013) 1 % PLATELET COUNT (test code = 1015) 276 K/UL CBC W/AUTO [id number] 00:00:00 Test Item Value Reference Range Interpretation Comments WBC (test code = 1001) 7.1 K/UL RBC (test code = 1002) 4.72 M/UL HEMOGLOBIN (test code = 1003) 14.8 G/DL HEMATOCRIT (test code = 1004) 43.9 % MCV (test code = 1005) 93.0 fL MCH (test code = 1006) 31.4 PG MCHC (test code = 1007) 33.7 G/DL RDW (test code = 1038) 14.1 % NEUTROPHILS (test code = 1008) 48 % LYMPHOCYTES (test code = 1010) 34 % MONOCYTES (test code = 1011) 9 % EOSINOPHILS (test code = 1012) 8 % BASOPHILS (test code = 1013) 1 % PLATELET COUNT (test code = 1015) 276 K/UL HEMOGLOBIN [id number] 00:00:00 Test Item Value Reference Range Interpretation Comments HEMOGLOBIN A1c (test code = 18329) 5.9 % HEMOGLOBIN [id number] 00:00:00 Test Item Value Reference Range Interpretation Comments HEMOGLOBIN A1c (test code = 49943) 5.9 % HEMOGLOBIN [id number] 00:00:00 Test Item Value Reference Range Interpretation Comments HEMOGLOBIN A1c (test code = 38345) 5.9 % [id number] 00:00:00 Test Item Value Reference Range Interpretation Comments TSH (test code = 2821) 2.1 UIU/ML [id number] 00:00:00 Test Item Value Reference Range Interpretation Comments TSH (test code = 2821) 2.1 UIU/ML [id number] 00:00:00 Test Item Value Reference Range Interpretation Comments TSH (test code = 2821) 2.1 UIU/ML COMPREHENSIVE METABOLIC [id number] 00:00:00 Test Item Value Reference Range Interpretation Comments GLUCOSE (test code = 2217) 108 MG/DL BUN (test code = 2208) 16 MG/DL CREATININE (test code = 2214) 0.95 MG/DL eGFR AMER. (test code 107 ML/MIN/1.73 = 45486) eGFR NON- AMER. (test 92 ML/MIN/1.73 code = 59752) CALCULATED BUN/CREAT (test 17 RATIO code = 2235) SODIUM (test code = 2231) 141 MEQ/L POTASSIUM (test code = 2228) 3.8 MEQ/L CHLORIDE (test code = 2215) 101 MEQ/L CARBON DIOXIDE (test code = 25 MEQ/L 220) CALCIUM (test code = 2209) 9.1 MG/DL PROTEIN, TOTAL (test code = 7.2 G/DL 2228) ALBUMIN (test code = 2201) 3.9 G/DL CALCULATED GLOBULIN (test 3.3 G/DL code = 2240) CALCULATED A/G RATIO (test 1.2 RATIO code = 2234) BILIRUBIN, TOTAL (test code = 0.5 MG/DL 2206) ALKALINE PHOSPHATASE (test 90 U/L code = 2204) SGOT (AST) (test code = 2218) 17 U/L SGPT (ALT) (test code = 2219) 28 U/L COMPREHENSIVE METABOLIC [id number] 00:00:00 Test Item Value Reference Range Interpretation Comments GLUCOSE (test code = 2217) 108 MG/DL BUN (test code = 2208) 16 MG/DL CREATININE (test code = 2214) 0.95 MG/DL eGFR AMER. (test code 107 ML/MIN/1.73 = 28251) eGFR NON- AMER. (test 92 ML/MIN/1.73 code = 70692) CALCULATED BUN/CREAT (test 17 RATIO code = 2235) SODIUM (test code = 2231) 141 MEQ/L POTASSIUM (test code = 2228) 3.8 MEQ/L CHLORIDE (test code = 2215) 101 MEQ/L CARBON DIOXIDE (test code = 25 MEQ/L 2205) CALCIUM (test code = 2209) 9.1 MG/DL PROTEIN, TOTAL (test code = 7.2 G/DL 2228) ALBUMIN (test code = 2201) 3.9 G/DL CALCULATED GLOBULIN (test 3.3 G/DL code = 2240) CALCULATED A/G RATIO (test 1.2 RATIO code = 2234) BILIRUBIN, TOTAL (test code = 0.5 MG/DL 2206) ALKALINE PHOSPHATASE (test 90 U/L code = 2204) SGOT (AST) (test code = 2218) 17 U/L SGPT (ALT) (test code = 2219) 28 U/L LIPID [id number] 00:00:00 Test Item Value Reference Range Interpretation Comments CHOLESTEROL (test code = 2210) 249 MG/DL TRIGLYCERIDES (test code = 2232) 156 MG/DL HDL CHOLESTEROL (test code = 2220) 55 MG/DL CALCULATED LDL CHOL (test code = 163 MG/DL 2237) RISK RATIO LDL/HDL (test code = 2.96 RATIO 2238) LIPID [id number] 00:00:00 Test Item Value Reference Range Interpretation Comments CHOLESTEROL (test code = 2210) 249 MG/DL TRIGLYCERIDES (test code = 2232) 156 MG/DL HDL CHOLESTEROL (test code = 2220) 55 MG/DL CALCULATED LDL CHOL (test code = 163 MG/DL 2237) RISK RATIO LDL/HDL (test code = 2.96 RATIO 2238) COMPREHENSIVE METABOLIC [id number] 00:00:00 Test Item Value Reference Range Interpretation Comments GLUCOSE (test code = 2217) 108 MG/DL BUN (test code = 2208) 16 MG/DL CREATININE (test code = 2214) 0.95 MG/DL eGFR AMER. (test code 107 ML/MIN/1.73 = 07810) eGFR NON- AMER. (test 92 ML/MIN/1.73 code = 40513) CALCULATED BUN/CREAT (test 17 RATIO code = 2235) SODIUM (test code = 2231) 141 MEQ/L POTASSIUM (test code = 2228) 3.8 MEQ/L CHLORIDE (test code = 2215) 101 MEQ/L CARBON DIOXIDE (test code = 25 MEQ/L 2205) CALCIUM (test code = 2209) 9.1 MG/DL PROTEIN, TOTAL (test code = 7.2 G/DL 2228) ALBUMIN (test code = 2201) 3.9 G/DL CALCULATED GLOBULIN (test 3.3 G/DL code = 2240) CALCULATED A/G RATIO (test 1.2 RATIO code = 2234) BILIRUBIN, TOTAL (test code = 0.5 MG/DL 2206) ALKALINE PHOSPHATASE (test 90 U/L code = 2204) SGOT (AST) (test code = 2218) 17 U/L SGPT (ALT) (test code = 2219) 28 U/L CBC W/AUTO [id number] 00:00:00 Test Item Value Reference Range Interpretation Comments WBC (test code = 1001) 7.1 K/UL RBC (test code = 1002) 4.72 M/UL HEMOGLOBIN (test code = 1003) 14.8 G/DL HEMATOCRIT (test code = 1004) 43.9 % MCV (test code = 1005) 93.0 fL MCH (test code = 1006) 31.4 PG MCHC (test code = 1007) 33.7 G/DL RDW (test code = 1038) 14.1 % NEUTROPHILS (test code = 1008) 48 % LYMPHOCYTES (test code = 1010) 34 % MONOCYTES (test code = 1011) 9 % EOSINOPHILS (test code = 1012) 8 % BASOPHILS (test code = 1013) 1 % PLATELET COUNT (test code = 1015) 276 K/UL CBC W/AUTO [id number] 00:00:00 Test Item Value Reference Range Interpretation Comments WBC (test code = 1001) 7.1 K/UL RBC (test code = 1002) 4.72 M/UL HEMOGLOBIN (test code = 1003) 14.8 G/DL HEMATOCRIT (test code = 1004) 43.9 % MCV (test code = 1005) 93.0 fL MCH (test code = 1006) 31.4 PG MCHC (test code = 1007) 33.7 G/DL RDW (test code = 1038) 14.1 % NEUTROPHILS (test code = 1008) 48 % LYMPHOCYTES (test code = 1010) 34 % MONOCYTES (test code = 1011) 9 % EOSINOPHILS (test code = 1012) 8 % BASOPHILS (test code = 1013) 1 % PLATELET COUNT (test code = 1015) 276 K/UL CBC W/AUTO [id number] 00:00:00 Test Item Value Reference Range Interpretation Comments WBC (test code = 1001) 7.1 K/UL RBC (test code = 1002) 4.72 M/UL HEMOGLOBIN (test code = 1003) 14.8 G/DL HEMATOCRIT (test code = 1004) 43.9 % MCV (test code = 1005) 93.0 fL MCH (test code = 1006) 31.4 PG MCHC (test code = 1007) 33.7 G/DL RDW (test code = 1038) 14.1 % NEUTROPHILS (test code = 1008) 48 % LYMPHOCYTES (test code = 1010) 34 % MONOCYTES (test code = 1011) 9 % EOSINOPHILS (test code = 1012) 8 % BASOPHILS (test code = 1013) 1 % PLATELET COUNT (test code = 1015) 276 K/UL HEMOGLOBIN [id number] 00:00:00 Test Item Value Reference Range Interpretation Comments HEMOGLOBIN A1c (test code = 15580) 5.9 % HEMOGLOBIN [id number] 00:00:00 Test Item Value Reference Range Interpretation Comments HEMOGLOBIN A1c (test code = 05676) 5.9 % HEMOGLOBIN [id number] 00:00:00 Test Item Value Reference Range Interpretation Comments HEMOGLOBIN A1c (test code = 93746) 5.9 % [id number] 00:00:00 Test Item Value Reference Range Interpretation Comments TSH (test code = 2821) 2.1 UIU/ML [id number] 00:00:00 Test Item Value Reference Range Interpretation Comments TSH (test code = 2821) 2.1 UIU/ML [id number] 00:00:00 Test Item Value Reference Range Interpretation Comments TSH (test code = 2821) 2.1 UIU/ML COMPREHENSIVE METABOLIC [id number] 00:00:00 Test Item Value Reference Range Interpretation Comments GLUCOSE (test code = 2217) 108 MG/DL BUN (test code = 2208) 16 MG/DL CREATININE (test code = 2214) 0.95 MG/DL eGFR AMER. (test code 107 ML/MIN/1.73 = 57821) eGFR NON- AMER. (test 92 ML/MIN/1.73 code = 28628) CALCULATED BUN/CREAT (test 17 RATIO code = 2235) SODIUM (test code = 2231) 141 MEQ/L POTASSIUM (test code = 2228) 3.8 MEQ/L CHLORIDE (test code = 2215) 101 MEQ/L CARBON DIOXIDE (test code = 25 MEQ/L 2205) CALCIUM (test code = 2209) 9.1 MG/DL PROTEIN, TOTAL (test code = 7.2 G/DL 2228) ALBUMIN (test code = 2201) 3.9 G/DL CALCULATED GLOBULIN (test 3.3 G/DL code = 2240) CALCULATED A/G RATIO (test 1.2 RATIO code = 2234) BILIRUBIN, TOTAL (test code = 0.5 MG/DL 2206) ALKALINE PHOSPHATASE (test 90 U/L code = 2204) SGOT (AST) (test code = 2218) 17 U/L SGPT (ALT) (test code = 2219) 28 U/L LIPID [id number] 00:00:00 Test Item Value Reference Range Interpretation Comments CHOLESTEROL (test code = 2210) 249 MG/DL TRIGLYCERIDES (test code = 2232) 156 MG/DL HDL CHOLESTEROL (test code = 2220) 55 MG/DL CALCULATED LDL CHOL (test code = 163 MG/DL 2237) RISK RATIO LDL/HDL (test code = 2.96 RATIO 2238) LIPID [id number] 00:00:00 Test Item Value Reference Range Interpretation Comments CHOLESTEROL (test code = 2210) 249 MG/DL TRIGLYCERIDES (test code = 2232) 156 MG/DL HDL CHOLESTEROL (test code = 2220) 55 MG/DL CALCULATED LDL CHOL (test code = 163 MG/DL 2237) RISK RATIO LDL/HDL (test code = 2.96 RATIO 2238) CBC W/AUTO [id number] 00:00:00 Test Item Value Reference Range Interpretation Comments WBC (test code = 1001) 7.1 K/UL RBC (test code = 1002) 4.72 M/UL HEMOGLOBIN (test code = 1003) 14.8 G/DL HEMATOCRIT (test code = 1004) 43.9 % MCV (test code = 1005) 93.0 fL MCH (test code = 1006) 31.4 PG MCHC (test code = 1007) 33.7 G/DL RDW (test code = 1038) 14.1 % NEUTROPHILS (test code = 1008) 48 % LYMPHOCYTES (test code = 1010) 34 % MONOCYTES (test code = 1011) 9 % EOSINOPHILS (test code = 1012) 8 % BASOPHILS (test code = 1013) 1 % PLATELET COUNT (test code = 1015) 276 K/UL CBC W/AUTO [id number] 00:00:00 Test Item Value Reference Range Interpretation Comments WBC (test code = 1001) 7.1 K/UL RBC (test code = 1002) 4.72 M/UL HEMOGLOBIN (test code = 1003) 14.8 G/DL HEMATOCRIT (test code = 1004) 43.9 % MCV (test code = 1005) 93.0 fL MCH (test code = 1006) 31.4 PG MCHC (test code = 1007) 33.7 G/DL RDW (test code = 1038) 14.1 % NEUTROPHILS (test code = 1008) 48 % LYMPHOCYTES (test code = 1010) 34 % MONOCYTES (test code = 1011) 9 % EOSINOPHILS (test code = 1012) 8 % BASOPHILS (test code = 1013) 1 % PLATELET COUNT (test code = 1015) 276 K/UL CBC W/AUTO [id number] 00:00:00 Test Item Value Reference Range Interpretation Comments WBC (test code = 1001) 7.1 K/UL RBC (test code = 1002) 4.72 M/UL HEMOGLOBIN (test code = 1003) 14.8 G/DL HEMATOCRIT (test code = 1004) 43.9 % MCV (test code = 1005) 93.0 fL MCH (test code = 1006) 31.4 PG MCHC (test code = 1007) 33.7 G/DL RDW (test code = 1038) 14.1 % NEUTROPHILS (test code = 1008) 48 % LYMPHOCYTES (test code = 1010) 34 % MONOCYTES (test code = 1011) 9 % EOSINOPHILS (test code = 1012) 8 % BASOPHILS (test code = 1013) 1 % PLATELET COUNT (test code = 1015) 276 K/UL HEMOGLOBIN [id number] 00:00:00 Test Item Value Reference Range Interpretation Comments HEMOGLOBIN A1c (test code = 44466) 5.9 % HEMOGLOBIN [id number] 00:00:00 Test Item Value Reference Range Interpretation Comments HEMOGLOBIN A1c (test code = 33251) 5.9 % HEMOGLOBIN [id number] 00:00:00 Test Item Value Reference Range Interpretation Comments HEMOGLOBIN A1c (test code = 82383) 5.9 % [id number] 00:00:00 Test Item Value Reference Range Interpretation Comments TSH (test code = 2821) 2.1 UIU/ML [id number] 00:00:00 Test Item Value Reference Range Interpretation Comments TSH (test code = 2821) 2.1 UIU/ML [id number] 00:00:00 Test Item Value Reference Range Interpretation Comments TSH (test code = 2821) 2.1 UIU/ML
--- NOTE | 2023-01-06 14:38 | RAD REPORT ---
EXAM DESCRIPTION: CT - Ct Stroke Brain Wo Cont - 01/06/2023 2:28 pm CLINICAL HISTORY: STROKE ALERT CVA COMPARISON: Head angio dated 01/06/2023; Head Brain Wo Cont dated 08/06/2021; Neck Angio dated 01/06/2023 TECHNIQUE: All CT scans are performed using dose optimization technique as appropriate and may inclu de automated exposure control or mA/KV adjustment according to patient size. FINDINGS: No intracranial hemorrhage, hydrocephalus or extra-axial fluid collection.No areas of brai n edema or evidence of midline shift. The paranasal sinuses and mastoids are clear. The calvarium is intact. IMPRESSION: No acute intracranial abnormality. If there is continued clinical concern for CVA, MR imaging of the brain would be recommended. The findings were discussed with Dr Cazares in the ED on 01/06/2023 at 2:30 p.m. by telephone.
--- NOTE | 2023-01-06 14:42 | RAD REPORT ---
EXAM DESCRIPTION: CT - Head angio - 01/06/2023 2:29 pm CLINICAL HISTORY: WEAKNESS Headache, drowsiness, CVA symptomology COMPARISON: Ct Stroke Brain Wo Cont dated 01/06/2023; Head Brain Wo Cont dated 08/06/2021 TECHNIQUE: CT angiography of the head was performed with MIPs. All CT scans are performed using dose optimization technique as appropriate and may include automated exposure control or mA/KV adjustment according to patient size. FINDINGS: No evidence of large vessel occlusion. No evidence of aneurysm is detected. No flow-limiti ng stenosis or vascular malformation identified. Antegrade flow is seen in the vertebral arteries. The vertebral arteries are codominant. The visualized dural venous sinuses are patent. IMPRESSION: No significant flow abnormality is detected.
[2023-01-06 14:43] LABS: Absolute Lymphocytes (CBC) 2.4 K/uL (0.7-4.9); Hematocrit 48.4 % (39.6-49.0); Lymphocytes % 24.2 % (15.3-44.8); MCV 93.9 fL (80-100); MPV 9.3 fL (7.6-11.3); RBC Red Blood Cell Count 5.15 M/uL (4.33-5.43)
[2023-01-06] MEDS ORDERED: ONDANSETRON 4 MG/2 ML VIAL ONE (14:43)
[2023-01-06 14:47] LABS: Protime INR 0.95
--- NOTE | 2023-01-06 14:48 | RAD REPORT ---
EXAM DESCRIPTION: CT - Neck Angio - 01/06/2023 2:31 pm CLINICAL HISTORY: weakness Headache, drowsiness, CVA COMPARISON: No comparisons TECHNIQUE: CT angiography of the neck vessels was performed with MIPs. All CT scans are performed using dose optimization technique as appropriate and may include automated exposure control or mA/KV adjustment according to patient size. FINDINGS: A left aortic arch is identified with normal three vessel configuration of the great vesse ls. No significant flow abnormality is seen of the common carotid bilaterally. No significant stenosis is identified involving the cervical segments of both internal carotid arteri es. Mild soft plaque is seen in both carotid bulbs. Normal flow is seen within both vertebral arteries. IMPRESSION: No significant carotid stenosis seen. Mild soft plaque both carotid bulbs.
--- NOTE | 2023-01-06 14:59 | RAD REPORT ---
EXAM DESCRIPTION: RAD - Chest Single View - 01/06/2023 2:50 pm CLINICAL HISTORY: facial weakness, right arm weak Chest pain. COMPARISON: Chest Single View dated 08/06/2021; Chest Single View dated 02/29/2020; CHEST SINGLE VIEW dated 01/09/2012 FINDINGS: Portable technique limits examination quality. The lungs are grossly clear. The heart is normal in size. No displaced fractures. IMPRESSION: No acute intrathoracic process suspected.
[2023-01-06 15:03] LABS: Troponin High Sensitivity 109.4 pg/mL (<58.9)
--- NOTE | 2023-01-06 15:25 | EDPHYS ---
Physician Documentation [facility] Name: Soy Frias Age: 57 yrs Sex: Male : 1965 Arrival Date: 01/06/2023 Time: 14:06 Bed 13 Private MD: ED Physician Luca Bowles HPI: 01/06 14:27 This 57 yrs old Male presents to ER via Ambulatory with complaints of S/S of rn Possible Stroke. 14:27 The patient's problem is reported as a facial droop, on right, weakness, in the right rn upper extremity. Onset: The symptoms/episode began/occurred this morning. Duration: This was a single incident, The episode is continuous. The symptoms are alleviated by nothing. The symptoms are aggravated by nothing. Associated signs and symptoms: Pertinent positives: weakness, Pertinent negatives: abdominal pain, chest pain. Severity of symptoms: At their worst the symptoms were moderate in the emergency department the symptoms are unchanged. The patient has not experienced similar symptoms in the past. The patient has not recently seen a physician. Pt reports woke up this AM with right facial droop and right arm weakness. Constant, Not improving. Has had TIA in past. . Historical: - Allergies: 14:06 No Known Allergies; aa5 - PMHx: 14:06 Hypertension; aa5 14:13 Diabetes mellitus; Hypercholesterolemia; aa5 - Immunization history:: Adult Immunizations unknown. - Social history:: Smoking status: Patient denies any tobacco usage or history of. - Family history:: not pertinent. - Hospitalizations: : No recent hospitalization is reported. ROS: 14:27 Constitutional: Negative for fever, chills, and weight loss, Eyes: Negative for injury, rn pain, redness, and discharge, Neck: Negative for injury, pain, and swelling, Cardiovascular: Negative for chest pain, palpitations, and edema, Respiratory: Negative for shortness of breath, cough, wheezing, and pleuritic chest pain, Abdomen/GI: Negative for abdominal pain, nausea, vomiting, diarrhea, and constipation, Back: Negative for injury and pain, MS/Extremity: Negative for injury and deformity, Skin: Negative for injury, rash, and discoloration, Neuro: + headache, facial weakness, and right arm weakness Exam: 14:27 Constitutional: This is a well developed, well nourished patient who is awake, alert, rn and in no acute distress. Head/Face: Normocephalic, atraumatic. Eyes: Pupils equal round and reactive to light, extra-ocular motions intact. Cardiovascular: Regular rate and rhythm. No pulse deficits. Respiratory: No increased work of breathing, no retractions or nasal flaring. Skin: Warm, dry with normal turgor. Normal color with no rashes, no lesions, and no evidence of cellulitis. MS/ Extremity: Pulses equal, no cyanosis. Neuro: Awake and alert, GCS 15, oriented to person, place, time, and situation. Right upper and lower facial weakness that is moderate. + RUE drift, 5/5 strength in other extremities. Sensory grossly intact except decreased sensation to RUE. Cerebellar exam normal. Normal gait. 16:13 ECG was reviewed by the Attending Physician. rn Vital Signs: 14:10 BP 152 / 88; Pulse 94; Resp 18 S; Temp 97.3(TE); Pulse Ox 99% on R/A; Weight 122.47 kg aa5 (R); Height 5 ft. 7 in. (R); 18:00 BP 151 / 97; Pulse 66; Resp 15; Pulse Ox 97% ; bp 14:10 Body Mass Index 42.29 (122.47 kg, 170.18 cm) aa5 NIH Stroke Scale Scores: 14:15 NIHSS Score: 2 bp MDM: 14:07 Patient medically screened. rn 15:23 Differential diagnosis: CVA, TIA, metabolic disorder. Data reviewed: vital signs, rn nurses notes, lab test result(s), EKG, radiologic studies, CT scan, and as a result, I will admit patient. Consideration of Admission/Observation Patient was admitted/placed on observation. Escalation of care including admission/observation considered. Management of patient was discussed with the following: Hospitalist: . I considered the following discharge prescriptions or medication management in the emergency department Medications were administered in the Emergency Department. See MAR. Discussion of test interpretation with radiology: I had a discussion with radiology regarding a test interpretation. Dr. Lares reports no acute findings, recommends MRI. Counseling: I had a detailed discussion with the patient and/or guardian regarding: the historical points, exam findings, and any diagnostic results supporting the discharge/admit diagnosis, lab results, radiology results, the need for further work-up and treatment in the hospital. Response to treatment: There is no appreciated change of the patient's symptoms at this time, and as a result, I will admit patient. 01/06 14:12 Order name: Basic Metabolic Panel; Complete Time: 15: rn 01/06 14:12 Order name: CBC with Diff; Complete Time: 15: rn 01/06 14:12 Order name: High Sensitivity Troponin; Complete Time: 15: rn 01/06 14:12 Order name: Protime (+inr); Complete Time: 15: rn 01/06 14:12 Order name: Ptt, Activated; Complete Time: 15: rn 01/06 14:42 Order name: Glucose, Ancillary Testing; Complete Time: 14: EDMS 01/06 14:52 Order name: CREATININE WHOLE BLOOD; Complete Time: 15: EDMS 01/06 17:14 Order name: CBC with Automated Diff EDMS 01/06 17:14 Order name: CBC with Automated Diff EDMS 01/06 17:14 Order name: Comprehensive Metabolic Panel EDMS 01/06 17:14 Order name: Comprehensive Metabolic Panel EDMS 01/06 17:14 Order name: Lipid Profile EDMS 01/06 17:14 Order name: Lipid Profile EDMS / 17:14 Order name: Magnesium EDMS 05/04 17:14 Order name: Magnesium EDMS 05/04 17:14 Order name: Phosphorus EDMS 05/04 17:14 Order name: Phosphorus EDMS 05/04 17:14 Order name: T4,Total EDMS 05/ 17:14 Order name: T4,Total EDMS 05/ 17:14 Order name: Thyroid Stimulating Hormone EDMS 05/ 17:14 Order name: Thyroid Stimulating Hormone EDMS 05/04 17:14 Order name: Troponin High Sensitivity EDMS 05/04 17:14 Order name: Troponin High Sensitivity EDMS 05/04 17:14 Order name: Troponin High Sensitivity EDMS 05/04 17:14 Order name: Troponin High Sensitivity EDMS 05/04 14:12 Order name: CT Stroke Brain w/o Contrast; Complete Time: 14:43 rn 01/06 14:12 Order name: Stroke CXR 1 View; Complete Time: 15: rn 01/06 14:12 Order name: Head Angio CT; Complete Time: 14: rn 01/06 14:12 Order name: Neck Angio CT; Complete Time: 15:08 rn 01/06 14:35 Order name: Brain Wo Cont MRI rn 01/06 17:14 Order name: Echo with Doppler EDAL 01/06 14:12 Order name: EKG; Complete Time: 14:13 rn 01/06 17:14 Order name: Physical Therapy Consult EDAL 01/06 17:14 Order name: Heart Healthy EDAL 01/06 17:14 Order name: EKG Electrocardiogram EDAL 01/06 17:14 Order name: EKG Electrocardiogram [facility] 01/06 14:12 Order name: Accucheck; Complete Time: 14:26 rn 01/06 14:12 Order name: Cardiac monitoring; Complete Time: 14: rn 01/06 14:12 Order name: EKG - Nurse/Tech; Complete Time: 15: rn 01/06 14:12 Order name: IV Saline Lock; Complete Time: 14: rn 01/06 14:12 Order name: Labs collected and sent; Complete Time: 14: rn 01/06 14:12 Order name: NPO; Complete Time: 14: rn 01/06 14:12 Order name: O2 Per Protocol; Complete Time: 14: rn 01/06 14:12 Order name: O2 Sat Monitoring; Complete Time: 14: rn 01/06 14:12 Order name: Stroke Swallow Screen; Complete Time: 14: rn EC:13 Rate is 74 beats/min. Rhythm is regular. QRS Swengel is Normal. IL interval is normal. QRS rn interval is normal. QT interval is normal. No Q waves. T waves are Normal. No ST changes noted. Clinical impression: Normal ECG. Interpreted by me. Reviewed by me. Administered Medications: 14:40 Drug: Ondansetron IVP 4 mg Route: IVP; Site: right antecubital; bp 15:31 Drug: Aspirin PO Chewable Tablet 324 mg Route: PO; bp 15:31 Drug: foLIC Acid IVPB 1 mg Route: IVPB; Site: right forearm; bp 17:58 Follow up: IV Status: Completed infusion; IV Intake: 100ml bp Disposition Summary: 01/06/23 15:25 Hospitalization Ordered Hospitalization Status: Inpatient Admission rn Provider: Mamadou King rn Location: Telemetry/MedSurg (Inpatient) rn Condition: Stable rn Problem: new rn Symptoms: are unchanged rn Bed/Room Type: Standard rn Room Assignment: 209(01/06/23 17:44) dw Diagnosis - Cerebral infarction, unspecified rn - Weakness rn - Paresthesia of skin rn Forms: - Medication Reconciliation Form rn - SBAR form rn NIH Stroke Scale - NIH Stroke Score Date: 01/06/2023 Time: 14:15 Total Score = 2 10. Dysarthria (speech clarity - read or repeat words) - 0(Normal) 11. Extinction and Inattention (visual/tactile/auditory/spatial/personal) - 0(No abnormality) 1a. Level of Consciousness (LOC) - 0(Alert) 1b. Level of Consciousness (LOC) (Month \T\ Age) - 0(Both) 1c. LOC Commands (Open \T\ Closes Eyes/Medical Secretary Receptionist) - 0(Both) 2. Best Gaze (Lateral Gaze Paresis) - 0(Normal) 3. Visual Field Loss - 0(No visual loss) 4. Facial Palsy - 2(Partial paralysis) 5a. Left Arm: Motor (10-second hold) - 0(No drift) 5b. Right Arm: Motor (10-second hold) - 0(No drift) 6a. Left Leg: Motor (5-second hold - always test supine) - 0(No drift) 6b. Right Leg: Motor (5-second hold - always test supine) - 0(No drift) 7. Limb Ataxia (finger/nose \T\ heel/glass - test with eyes open) - 0(Absent) 8. Sensory Loss (pinprick arms/legs/face) - 0(Normal) 9. Best Language: Aphasia (description/naming/reading) - 0(No aphasia) Initials: bp Signatures: Dispatcher [employer] Citlaly Delgado RN RN dw Luca Bowles MD MD rn Calderon, Audri, RON RN aa5 Brock Keith RN RN bp Corrections: (The following items were deleted from the chart) 17:44 15:25 rn ursula
--- NOTE | 2023-01-06 15:25 | ER ---
Nurse's Notes [facility] Name: Soy Frias Age: 57 yrs Sex: Male : 1965 Arrival Date: 01/06/2023 Time: 14:06 Bed 13 Private MD: Diagnosis: Cerebral infarction, unspecified;Weakness;Paresthesia of skin Presentation: 01/06 14:10 Chief complaint: Patient states: right facial droop and right arm weakness that began aa5 this morning. 14:10 Acuity: JANIS 2 aa5 14:10 Coronavirus screen: At this time, the client does not indicate any symptoms associated aa5 with coronavirus-19. Ebola Screen: Patient denies travel to an Ebola-affected area in the 21 days before illness onset. An acute neurological deficit is present. Pre-hospital glucose is not applicable to this patient. Initial Sepsis Screen: Does the patient meet any 2 criteria? No. Patient's initial sepsis screen is negative. Does the patient have a suspected source of infection? No. Patient's initial sepsis screen is negative. Risk Assessment: Do you want to hurt yourself or someone else? Patient reports no desire to harm self or others. Onset of symptoms was January 06, 2023. 14:10 Method Of Arrival: Ambulatory aa5 Triage Assessment: 14:15 The onset of the patients symptoms was January 05, 2023 at 21:00. General: Appears in no bp apparent distress. Behavior is calm, cooperative, appropriate for age. Pain: Denies pain. EENT: R FACIAL DROOP INVOLVING MOUTH AND BROW. Neuro: Reports numbness in right arm paresthesias in right eye, right cheek and right jaw. Cardiovascular: Rhythm is sinus rhythm. Respiratory: No deficits noted. GI: No signs and/or symptoms were reported involving the gastrointestinal system. : No signs and/or symptoms were reported regarding the genitourinary system. Derm: No deficits noted. Musculoskeletal: No deficits noted. Stroke Activation: Symptom onset > 6 hours Physician: Stroke Attending; Name: ; Notified At: ; Arrived At: Physician: Chief Stroke Resident; Name: ; Notified At: ; Arrived At: Physician: Stroke Resident; Name: ; Notified At: ; Arrived At: Physician: ED Attending; Name: ; Notified At: ; Arrived At: Physician: ED Resident; Name: ; Notified At: ; Arrived At: Historical: - Allergies: 14:06 No Known Allergies; aa5 - PMHx: 14:06 Hypertension; aa5 14:13 Diabetes mellitus; Hypercholesterolemia; aa5 - Immunization history:: Adult Immunizations unknown. - Social history:: Smoking status: Patient denies any tobacco usage or history of. - Family history:: not pertinent. - Hospitalizations: : No recent hospitalization is reported. Screenin:00 [facility] ED Fall Risk Assessment (Adult) History of falling in the last 3 months, bp including since admission No falls in past 3 months (0 pts). Abuse screen: Denies threats or abuse. Denies injuries from another. Nutritional screening: No deficits noted. Tuberculosis screening: No symptoms or risk factors identified. Assessment: 14:15 VAN Scoring: Arm Drift: Patients demonstrates NO arm weakness. Patient is VAN Negative. bp Roseann Swallow Protocol Exclusion Criteria: NPO for medical/surgical reason by provider order. TNKase (Tenecteplase) Screening: Contraindications: Patient reports onset of signs and symptoms of stroke greater than 6 hours ago: Yes. 16:00 Reassessment: No changes from previously documented assessment. Patient is alert, bp oriented x 3, equal unlabored respirations, skin warm/dry/pink. 18:00 Reassessment: REPORT TO JESSICA VELASQUEZ. PT CURRENTLY IN MRI. bp Vital Signs: 14:10 BP 152 / 88; Pulse 94; Resp 18 S; Temp 97.3(TE); Pulse Ox 99% on R/A; Weight 122.47 kg aa5 (R); Height 5 ft. 7 in. (R); 18:00 BP 151 / 97; Pulse 66; Resp 15; Pulse Ox 97% ; bp 14:10 Body Mass Index 42.29 (122.47 kg, 170.18 cm) aa5 NIH Stroke Scale Scores: 14:15 NIHSS Score: 2 bp ED Course: 14:06 Arm band placed on. aa5 14:07 Patient arrived in ED. rn 14:07 Luca Bowles MD is Attending Physician. rn 14:12 Triage completed. aa5 14:21 Brock Keith, RON is Primary Nurse. bp 14:30 CT Stroke Brain w/o Contrast In Process Unspecified. EDMS 14:[address] In Process Unspecified. EDMS 14:[address] In Process Unspecified. EDMS 14:52 Stroke CXR 1 View In Process Unspecified. EDMS 15:24 Mamadou King MD is Hospitalizing Provider. rn 16:00 Inserted saline lock: 20 gauge in right antecubital area, using aseptic technique. bp Blood collected. Patient admitted, IV remains in place. 16:00 No provider procedures requiring assistance completed. bp 17:51 Brain Wo Cont MRI In Process Unspecified. EDMS 18:00 Patient has correct armband on for positive identification. Bed in low position. Call bp light in reach. Side rails up X2. Administered Medications: 14:40 Drug: Ondansetron IVP 4 mg Route: IVP; Site: right antecubital; bp 15:31 Drug: Aspirin PO Chewable Tablet 324 mg Route: PO; bp 15:31 Drug: foLIC Acid IVPB 1 mg Route: IVPB; Site: right forearm; bp 17:58 Follow up: IV Status: Completed infusion; IV Intake: 100ml bp Medication: 18:00 VIS not applicable for this client. bp Intake: 17:58 IV: 100ml; Total: 100ml. bp Outcome: 15:25 Decision to Hospitalize by Provider. rn 18:00 Admitted to Med/surg accompanied by tech, via wheelchair, with chart, Report called to bp JESSICA RN 18:00 Condition: stable 18:00 Instructed on the need for admit. 18:45 Patient left the ED. bp NIH Stroke Scale - NIH Stroke Score Date: 01/06/2023 Time: 14:15 Total Score = 2 10. Dysarthria (speech clarity - read or repeat words) - 0(Normal) 11. Extinction and Inattention (visual/tactile/auditory/spatial/personal) - 0(No abnormality) 1a. Level of Consciousness (LOC) - 0(Alert) 1b. Level of Consciousness (LOC) (Month \T\ Age) - 0(Both) 1c. LOC Commands (Open \T\ Closes Eyes/Bridge Toll Collector) - 0(Both) 2. Best Gaze (Lateral Gaze Paresis) - 0(Normal) 3. Visual Field Loss - 0(No visual loss) 4. Facial Palsy - 2(Partial paralysis) 5a. Left Arm: Motor (10-second hold) - 0(No drift) 5b. Right Arm: Motor (10-second hold) - 0(No drift) 6a. Left Leg: Motor (5-second hold - always test supine) - 0(No drift) 6b. Right Leg: Motor (5-second hold - always test supine) - 0(No drift) 7. Limb Ataxia (finger/nose \T\ heel/glass - test with eyes open) - 0(Absent) 8. Sensory Loss (pinprick arms/legs/face) - 0(Normal) 9. Best Language: Aphasia (description/naming/reading) - 0(No aphasia) Initials: bp Signatures: Dispatcher [employer] EDLuca Palacios MD MD rn Calderon, Audri RN RN aa5 Brock Keith, RN RN bp Corrections: (The following items were deleted from the chart) 14:13 14:10 Pulse 94bpm; Resp 18bpm; Spontaneous; Pulse Ox 99% RA; Temp 97.3F aa5 Temporal; 122.47 kg Reported; Height 5 ft. 7 in. Reported; BMI: 42.2; aa5
[2023-01-06] MEDS ORDERED: ASPIRIN 81 MG CHEWABLE TABLET ONE (15:30)
[2023-01-06] MEDS ORDERED: FOLIC ACID 5 MG/ML VIAL ONE (15:31)
[2023-01-06] MEDS ORDERED: ONDANSETRON 4 MG/2 ML VIAL IV PRN (17:06)
--- NOTE | 2023-01-06 18:00 | RAD REPORT ---
EXAM DESCRIPTION: MRI - Brain Wo Cont - 01/06/2023 5:49 pm CLINICAL HISTORY: WEAKNESS Headache, CVA symptomology COMPARISON: Head angio dated 01/06/2023 TECHNIQUE: Multi-sequence, multiplanar MR imaging of the brain was performed without contrast. FINDINGS: No intracranial hemorrhage, hydrocephalus or extra-axial fluid collections. No edema or sh ift of midline structures. No findings to suspect brain mass. DWI is negative for acute CVA. Midline structures are normally formed. Mastoid air cells and paranasal sinuses are clear. IMPRESSION: Negative for acute CVA or other acute intracranial process.
[2023-01-06 19:07] VITALS: O2SAT 97
[2023-01-06] MEDS: NA CHLORIDE 0.9% 1,000 ML IV SCH (19:16)
[2023-01-06] MEDS: ACETAMINOPHEN 500 MG TAB PO PRN (20:17)
[2023-01-06] MEDS: ENOXAPARIN 40 MG/0.4 ML SQ SCH (20:17)
[2023-01-06 20:45] VITALS: BMI 42.3
[2023-01-06] MEDS ORDERED: ATORVASTATIN 40 MG TAB PO SCH (21:00)
[2023-01-07] MEDS: NA CHLORIDE 0.9% 1,000 ML IV SCH (05:47)
[2023-01-07 06:49] LABS: Absolute Lymphocytes (CBC) 2.1 K/uL (0.7-4.9); Hematocrit 48.2 % (39.6-49.0); Lymphocytes % 25.7 % (15.3-44.8); MCV 93.6 fL (80-100); MPV 9.7 fL (7.6-11.3); RBC Red Blood Cell Count 5.14 M/uL (4.33-5.43)
[2023-01-07 07:16] LABS: Albumin 3.3 g/dL (3.4-5.0); Bilirubin Total 0.4 mg/dL (0.2-1.0); Magnesium 1.9 mg/dL (1.6-2.4); Potassium 3.4 mEq/L (3.5-5.1); Protein, Total 7.2 g/dL (6.4-8.2); T4,Total 5.4 ug/dL (4.5-12.1); Thyroid Stimulating Hormone 3.26 uIU/mL (0.358-3.740)
[2023-01-07 07:19] LABS: Troponin High Sensitivity 124.1 pg/mL (<58.9)
[2023-01-07] MEDS ORDERED: ASPIRIN EC 81 MG TAB PO SCH (09:00)
[2023-01-07] MEDS ORDERED: CLOPIDOGREL 75 MG TABLET PO SCH (09:00)
[2023-01-07] MEDS ORDERED: hydroCHLOROthiazide 25 MG TAB PO SCH (09:00)
[2023-01-07] MEDS ORDERED: lisinopriL 20 MG TAB PO SCH (09:00)
[2023-01-07] MEDS ORDERED: POTASSIUM CL SA 10 MEQ TAB PO ONE (09:00)
[2023-01-07] MEDS: ACETAMINOPHEN 500 MG TAB PO PRN ×2 (09:33→17:14)
[2023-01-07] MEDS: POTASS/SODIUM PHOSPHATE 1 PKT POWD.PACK PO SCH (09:34)
[2023-01-07] MEDS: ENOXAPARIN 40 MG/0.4 ML SQ SCH (09:34)
--- NOTE | 2023-01-07 10:19 | P.HP ---
Certification for Inpatient Patient admitted to: Observation With expected LOS: <2 Midnights Patient will require the following post-hospital care: None Practitioner: I am a practitioner with admitting privileges, knowledge of patient current condition, hospital course, and medical plan of care. Services: Services provided to patient in accordance with Admission requirements found in Title 42 Section 412.3 of the Code of Federal Regulations Patient History Date of Service: 01/06/23 Reason for admission: Right-sided weakness History of Present Illness: 57-year-old gentleman came to the hospital with weakness of the right side. Patient also had a facial droop. Patient's review of records shows that he had similar issues in the past and is also has some chest discomfort. He did complain to the ER doctor about having some chest pain but when I talked to him he denied it. CT of the brain was negative. MRI of the brain is pending. Patient will be admitted to the hospital for observation. Allergies No Known Allergies Allergy (Verified 01/06/23 19:25) Home Medications: Lisinopril/Hydrochlorothiazide [Lisinopril-Hctz 20-12.5 mg Tab] 2 tab PO DAILY 02/29/20 Aspirin [Aspirin EC 81 MG] 81 mg PO DAILY #30 tablet. 03/02/20 Atorvastatin Calcium [Lipitor] 40 mg PO BEDTIME #30 tab 03/02/20 - Past Medical/Surgical History Has patient received pneumonia vaccine in the past: No Diabetic: No -: HTN -: HLD Past Surgical History: Patient denies surgical history Psychosocial/ Personal History: Patient lives at home with his . - Family History Father Family History: Reviewed- Non-Contributory - Social History Smoking Status: Never smoker Alcohol use: No CD- Drugs: No Caffeine use: No Place of Residence: Home Review of Systems 10-point ROS is otherwise unremarkable Physical Examination - Vital Signs Temperature: 98.2 F Blood Pressure: 160/91 Pulse: 65 Respirations: 14 Pulse Ox (%): 95 - Physical Exam General: Alert, In no apparent distress, Oriented x3 HEENT: Atraumatic, PERRLA, Mucous membr. moist/pink, EOMI, Sclerae nonicteric Neck: Supple, 2+ carotid pulse no bruit, No LAD, Without JVD or thyroid abnormality Respiratory: Clear to auscultation bilaterally, Normal air movement Cardiovascular: Regular rate/rhythm, Normal S1 S2, No murmurs Gastrointestinal: Normal bowel sounds, Soft and benign, Non-distended, No tenderness Musculoskeletal: No clubbing, No swelling, No tenderness Integumentary: No rashes Neurological: Normal tone, Sensation intact, Normal affect, Abnormal gait, Abnormal strength, Abnormal cranial nerve function Lymphatics: No axilla or inguinal lymphadenopathy - Studies Laboratory Data (last 24 hrs) 01/06/23 14:30: PT 10.5, INR 0.95, APTT 30.0 01/06/23 14:30: WBC 10.00, Hgb 16.0, Hct 48.4, Plt Count 268 01/06/23 14:30: Sodium 135 L, Potassium 3.0 L, BUN 18, Creatinine 1.36 H, Glucose 115 H Assessment & Plan - Problems (Diagnosis) (1) Right sided weakness Current Visit: Yes Status: Acute (2) Hyperlipidemia Current Visit: No Status: Chronic Qualifiers: (3) Hypertension Current Visit: No Status: Chronic Qualifiers: (4) Morbid obesity Current Visit: No Status: Chronic - Plan Patient's MRI of the brain was negative. Patient's blood pressure is stable. Patient has neurologic exam that really just showed some right-sided facial weakness but upper body strength was incongruent. Lower extremity strength is equal and about 4+/5. At this time, patient is clinically doing well. We will observe him overnight and anticipate discharge in the morning. He will need to continue antiplatelet and statin therapy going forward. Slowly control his blood pressure over the next 24 hours. Discharge Plan: Home Plan to discharge in: 24 Hours - Advance Directives Does patient have a Living Will: No Does patient have a Durable POA for Healthcare: No - Code Status/Comfort Care Code Status Assessed: Yes Code Status: Full Code Critical Care: No Time Spent Managing PTS Care (In Minutes): 45
--- NOTE | 2023-01-07 10:25 | P.DS ---
Discharge Date: 01/07/23 Disposition: ROUTINE DISCHARGE Discharge Condition: GOOD Reason for Admission: Right-sided weakness - Problems (1) Right sided weakness Current Visit: Yes Status: Acute (2) Hyperlipidemia Current Visit: No Status: Chronic Qualifiers: (3) Hypertension Current Visit: No Status: Chronic Qualifiers: (4) Morbid obesity Current Visit: No Status: Chronic Brief History of Present Illness: 57-year-old gentleman came to the hospital with weakness of the right side. Patient also had a facial droop. Patient's review of records shows that he had similar issues in the past and is also has some chest discomfort. He did complain to the ER doctor about having some chest pain but when I talked to him he denied it. CT of the brain was negative. MRI of the brain is pending. Patient will be admitted to the hospital for observation. Hospital Course: Patient's MRI of the brain was negative. Patient's blood pressure is slightly elevated so patient will be given amlodipine. 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 Outpatient neurology follow- up. Outpatient cardiology follow-up as well. At this time, patient is stable for discharge home with outpatient follow-up as mentioned above. Vital Signs/Physical Exam: Temp Pulse Resp BP Pulse Ox 98.2 F 65 14 160/91 H 95 01/07/23 10:18 01/07/23 10:18 01/07/23 10:18 01/07/23 10:18 01/07/23 10:18 General: Alert, In no apparent distress, Oriented x3 Laboratory Data at Discharge: WBC 8.00 thou/uL (4.3-10.9) 01/07/23 06:32 Hgb 15.8 g/dL (13.6-17.9) 01/07/23 06:32 Hct 48.2 % (39.6-49.0) 01/07/23 06:32 Plt Count 266 thou/uL (152-406) 01/07/23 06:32 PT 10.5 SECONDS (9.5-12.5) 01/06/23 14:30 INR 0.95 01/06/23 14:30 APTT 30.0 SECONDS (24.3-36.9) 01/06/23 14:30 Sodium 136 mEq/L (136-145) 01/07/23 06:32 Potassium 3.4 mEq/L (3.5-5.1) L D 01/07/23 06:32 BUN 20 mg/dL (7-18) H 01/07/23 06:32 Creatinine 1.20 mg/dL (0.70-1.30) 01/07/23 06:32 Glucose 133 mg/dL (74-106) H 01/07/23 06:32 Phosphorus 2.0 mg/dL (2.5-4.9) L 01/07/23 06:32 Magnesium 1.9 mg/dL (1.6-2.4) 01/07/23 06:32 Total Bilirubin 0.4 mg/dL (0.2-1.0) 01/07/23 06:32 AST 13 U/L (15-37) L 01/07/23 06:32 ALT 26 U/L (16-61) 01/07/23 06:32 Alkaline Phosphatase 93 U/L (45-117) 01/07/23 06:32 Triglycerides 127 mg/dL (<150) 01/07/23 06:32 Cholesterol 229 mg/dL (<200) H 01/07/23 06:32 HDL Cholesterol 47 mg/dL (40-60) 01/07/23 06:32 Cholesterol/HDL Ratio 4.87 01/07/23 06:32 Home Medications: Lisinopril/Hydrochlorothiazide [Lisinopril-Hctz 20-12.5 mg Tab] 2 tab PO DAILY 02/29/20 Atorvastatin Calcium [Lipitor] 40 mg PO BEDTIME #30 tab 03/02/20 Amlodipine [Norvasc*] 10 mg PO DAILY #30 tab 01/07/23 Aspirin [Aspirin EC 81 MG] 162 mg PO DAILY #60 tablet. 01/07/23 Valacyclovir HCl [Valtrex] 1,000 mg PO Q8H #21 tab 01/07/23 predniSONE [Deltasone] 20 mg PO BID #11 tab 01/07/23 New Medications: Aspirin [Aspirin EC 81 MG] 162 mg PO DAILY #60 tablet. Amlodipine [Norvasc*] 10 mg PO DAILY #30 tab predniSONE [Deltasone] 20 mg PO BID #11 tab Valacyclovir HCl [Valtrex] 1,000 mg PO Q8H #21 tab Physician Discharge Instructions: -DC IV and DC home -Follow-up with PCP in 1 to 2 weeks -Follow-up with Neurology in 1 to 2 weeks -Please call Dr. King at [phone] if any questions regarding hospital stay -Please call nursing station at [phone] if any nursing or medication questions -Return to the emergency room if symptoms worsen Diet: AHA Activity: Fall precautions Followup: NONE,NONE [Primary Care Provider] - Time spent managing pt's care (in minutes): 35
[2023-01-07 11:46] VITALS: TEMP 98.5
[2023-01-07] MEDS ORDERED: HYDRALAZINE HCL 20 MG/ML VIAL IV ONE (12:08)
--- NOTE | 2023-01-07 13:30 | ECHO ---
HEIGHT: 5 ft 7 in WEIGHT: 270 lb 0 oz DATE OF STUDY: 01/07/[address]: Mamadou King MD 2-DIMENSIONAL: YES M.MODE: YES DOPPLER: YES COLOR FLOW: YES TDS: NO PORTABLE: YES DEFINITY: NO BUBBLE STUDY: NO DIAGNOSIS: WEAKNESS CARDIAC HISTORY: CATHERIZATION: SURGERY: PROSTHETIC VALVE: PACEMAKER: MEASUREMENTS (cm) DIASTOLIC (NORMALS) SYSTOLIC (NORMALS) IVSd 1.0 (0.6-1.2) LA Diam 4.0 (1.9-4.0) LVEF 53% LVIDd 4.7 (3.5-5.7) LVIDs 3.4 (2.0-3.5) %FS 27% LVPWd 1.0 (0.6-1.2) Ao Diam 2.9 (2.0-3.7) 2 DIMENSIONAL ASSESSMENT: RIGHT ATRIUM: NORMAL LEFT ATRIUM: NORMAL RIGHT VENTRICLE: NORMAL LEFT VENTRICLE: NORMAL TRICUSPID VALVE: NORMAL MITRAL VALVE: NORMAL PULMONIC VALVE: NORMAL AORTIC VALVE: NORMAL PERICARDIAL EFFUSION: NONE AORTIC ROOT: NORMAL LEFT VENTRICULAR WALL MOTION: NORMAL. DOPPLER/COLOR FLOW: NORMAL. COMMENTS: NORMAL 2D ECHO WITH DOPPLER. NO WALL MOTION ABNORMALITY NO EFFUSION TECHNOLOGIST: MERY ALCANTARA
[2023-01-07] MEDS ORDERED: MORPHINE 2 MG/ML SYR IV ONE (14:04)
--- NOTE | 2023-01-07 14:28 | CON ---
Reason For Consultation: Consultation called because of possible stroke versus Leone's palsy. History Of Present Illness: Mr. 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 He thought there was some right arm and leg weakness with the right face weakness and along with th e strange taste. He came to [facility] also with some chest pain and was evaluated for that . His brain CT scan and MRI were negative for any acute ischemic or hemorrhagic stroke, and the arm and leg did not appear to have any focal weakness despite the patient's reports of weakness. He did have some difficulty moving the right corner of the face as there was a decreased right nasolabial fo ld, difficulty closing the right eye and there was tearing in the right eye, all consistent with Leone 's palsy. He was ambulated by the physical therapist. He walked without an assistive device indepen dently, did well with that and did not lose his balance, also walked with a walker and did so indepen dently. At my evaluation, the patient was able to move the arms and legs equally well. There was no focal weakness noted in the upper or lower extremities bilaterally. Past Medical History: As noted. Allergies: NO KNOWN DRUG ALLERGIES. Medications: Lisinopril tablets daily, aspirin 81 mg daily, Lipitor 40 mg at bedtime. Family History: Father with the high blood pressure. Social History: Denies alcohol, tobacco, or IV drug use. Past Surgical History: Denies surgical history. Social History: Again lives at home with . Denies alcohol, tobacco, or drug use. Review of Systems: It was noted he said he had prior Leone's palsy on multiple occasions and usually it resolves within a bout a week. Physical Examination: Vital Signs: Blood pressure 174/109, down to 158/88, temperature 97.6, oxygen saturation 99%, respir atory rate 14. General: Mr. Liu is lying in bed. He is in no significant distress. HEENT: He is normocephalic, atraumatic. Sclerae anicteric. Oropharynx is moist. Neck: Supple. Chest: Clear. Heart: Regular. Extremities: Show no significant edema, cyanosis, or clubbing. Neurological: Alert and oriented to person, situation, place, time. Cranial nerves remarkable for d ecrease in right nasolabial fold, difficulty closing the right eye. Weakness of movement of the righ t corner of the mouth, but sensation of the face intact bilaterally. Otherwise, no other cranial ner ve deficits. Motor in the upper extremities bilaterally 5/5. Lower extremity bilaterally 5/5. Sens ation intact bilaterally. Arm and leg coordination intact. Upper and lower extremities reflexes sym metric 2+. With gait, he has good stance, right arm swing. Laboratory Studies: Complete blood count with differential is unremarkable. Coagulation panel is no rmal. Chemistries: Sodium 133, potassium 3.4, chloride 105, carbon dioxide 30, BUN 20, creatinine 1 .2. His troponins were elevated to 124. AST 13, ALT 26, alkaline phosphatase 93. LDL cholesterol 1 57, HDL 47, cholesterol HDL ratio 4.87, TSH 3.26, T4 5.4. CT angiogram of head and neck, no signific ant flow abnormalities. Assessment: Mr. 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 No evidence of stroke on exam or on MRI of the brain. Does have risk factors, however, including hypertension which is uncontrolled and dyslipidemia. Plan: Aspirin 81 mg daily, folic acid 1 mg daily. Continue with aggressive management of hypertensi on. He is on Lipitor 40 mg at bedtime. Prinivil 40 mg daily, HydroDIURIL 25 mg daily. 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 He may be discharged home and follow up in Dr. Dina espinal's clinic within a month. EDMUND/GAYATRI Voice ID: [id number] Report ID: [id number]
[2023-01-07 16:12] VITALS: BP 147/84
--- NOTE | 2023-01-07 18:13 | RAD REPORT ---
EXAM DESCRIPTION: MRI - C Spine Wo Cont - 01/07/2023 4:48 pm CLINICAL HISTORY: weakness to the right COMPARISON: No comparisons TECHNIQUE: Sagittal T1-weighted, T2-weighted and T2-STIR sequences were obtained as well as axial T2 medic sequence obtained. FINDINGS: Cervical vertebral bodies are normal in height. No suspicious marrow edema or marrow repla cing process. Loss of the normal cervical lordosis Cerebellar tonsils and mid-line skull base show no suspicious finding. No significant finding at the C1 and C2 levels. C2-3 level: No significant findings. C3-4 level: Uncovertebral joint hypertrophy with posterior disc osteophyte complex results in moderat e left neural foraminal narrowing and mild central spinal stenosis. The right neural foramen is adequ ate. C4-5 level: Posterior disc osteophyte complex uncovertebral joint hypertrophy results in mild to mode rate left and mild right neural foraminal narrowing and moderate central spinal stenosis. No abnormal cord signal. C5-6 level: No significant findings. C6-7 level: Posterior disc osteophyte complex uncovertebral joint hypertrophy results in mild bilater al neural foraminal narrowing. No significant central spinal stenosis C7-T1 level: No significant findings. Cervical cord shows no focal narrowing, expansion or signal abnormality. IMPRESSION: Mild multilevel cervical spondylosis with varying degrees of neural foraminal narrowing and central spinal stenosis. With regard to a right-sided radiculopathy, no clear culprit is identifi ed . Neural foraminal narrowing is mild at C4-5 on the right and at C6-7. Moderate central spinal kevin nosis is noted but no abnormal cord signal.
--- NOTE | 2023-01-08 07:13 | EKG ---
Test Date: 2023-01-06 Test Time: 14:57:05 Life Skills Consultant: BP MEASUREMENT RESULTS: Intervals: Rate: 74 FL: 148 QRSD: 106 QT: 364 QTc: 404 [place]: P: 55 FL: 148 QRS: 22 T: 42 INTERPRETIVE STATEMENTS: Normal sinus rhythm Normal ECG No previous ECG available for comparison Electronically Signed On 01-08-23 07:09:50 CDT by Margarito Diez
[2023-01-08] MEDS ORDERED: AMLODIPINE 10 MG TAB PO ONE (12:08)
== END 2023-01-07 19:20 | disposition home or self-care (01) ==
LOC: ER 14:06 → ERHOLD 17:07 → 2ND 18:22
PROVIDERS: ADMIT Hospitalist; ATTEND Hospitalist
DX: G51.0 Bell's palsy (principal); R53.1 Weakness; R29.810 Facial weakness; R07.9 Chest pain, unspecified; E78.5 Hyperlipidemia, unspecified; I10 Essential (primary) hypertension; E66.01 Morbid (severe) obesity due to excess calories; Z68.41 Body mass index [BMI] 40.0-44.9, adult
CPT/HCPCS: 96365; 93005; 93306; 85025 ×2; 80048; 36415; 83735; 84100; 84132; 85610; 80061; 82565; 82947; 85730; 84436; 84443; 84484 ×2; 80053; 70496; 70498; 70450; 71045; 70551; 72141; 97112; 97116; 97161; 96375; 99285; 96366; Q9967; J0360; J1650 ×2; J2270; J2405; J7030 ×2; G0378

== ENCOUNTER 2023-02-23 22:05 | Inpatient (IN) | payer OTHER ==
--- OUTSIDE RECORDS SUMMARY | 2023-02-23 22:58 | XMS REPORT | Continuity of Care Document ---
:1965 Author Organization [facility] t Address [address] [facility] [address] [place] [address] Care Team Providers Name Role Phone Philip Colby [facility], [facility] Primary Care P hysician DULCE LEE Attending Clinician Unavailable KAREN LOPEZ Attending Clinician Unavailable MARITO GARSIA Attending Clinician Unavailable DIANN SADLER Attending Clinician Unavailable MD DOMONIQUE Attending Clinician Unavailable DENIA DIAZ Attending Clinician Unavailable LAB90 Attending Clinician Unavailable ANTONIO ALEMAN Attending Clinician Unavailable Dwayne España Attending Clinician Payers Payer Name Policy Type Policy Number Effective Date Expiration Date S delia RHODESTDHIRAJ MP CVS 9 [id number] 2022 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 94 00:00:00 ON STAND COMMERCIAL [id number] 2017 NON-CONTRACT 00:00:00 GENERIC Problems Condition Condition Condition Status Onset Resolution Last Treating Co mments Source Name Details Category Date Date Treatment Clinician Date Prediabete Prediabete Disease Active Elizabeth gordon s s 02-02 Seybold 00:00: - 00 Externa l Mixed Mixed Disease Active Lexy hyperlipid hyperlipid 02-02 Se ybold emia emia 00:00: - 00 Externa l Hypertensi Hypertensi Disease Active Elizabeth gordon on on 01-19 Seybold 00:00: - 00 Externa l Low Low Disease Active Lexy testostero testostero 01-19 Se ybold ne ne 00:00: - 00 Externa l Erectile Erectile Disease Active Kelse y dysfunctio dysfunctio 01-19 Se ybold n n 00:00: - 00 Externa l Snoring Snoring Disease Active Lexy - Seybold 00:00: - 00 Externa l Dyspnea on Dyspnea on Disease Active K elsesameer exertion exertion 01-19 Seybol d 00:00: - 00 Externa l Class 3 Class 3 Disease Active Lexy severe severe 01-19 Seybold obesity obesity 00:00: - due to due to 00 Externa excess excess l calories calories with with serious serious comorbidit comorbidit y and body y and body mass index mass index (BMI) of (BMI) of 40.0 to 40.0 to 44.9 in 44.9 in adult adult Right-side Right-side Disease Active K elsey 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 00:00: - 00 Externa l No known No known Disease Unive rs active active ity of problems problems [facility] Allergies, Adverse Reactions, Alerts Allergy Allergy Status Severity Reaction(s) Onset Inactive Treating Comm ents Source Name Type Date Date Clinician NO KNOWN Drug Active Univers ALLERGIE Class ity of S [facility] Social History Social Habit Start Date Stop Date Quantity Comments Source Gender identity Lexy myersmian - External Sexual orientation Lexy Oropeza - External Exposure to Not sure University of SARS-CoV-2 (event) [facility] Alcohol intake 2023-02-02 2023-02-02 Lifetime Lexy Velázquez bold - 00:00:00 00:00:00 non-drinker External (finding) Tobacco use and 2023-01-18 2023-01-18 Smokeless Lexy Burgos ybold - exposure 00:00:00 00:00:00 tobacco non-user External History of Social 2023-01-18 2023-01-18 Lexy Oropeza - function 00:00:00 00:00:00 External Sex [birth year] Lexy Burgos ybold - 00:00:00 00:00:00 External Smoking Status Start Date Stop Date Source Never smoked tobacco Lexy Seyb old - External Unknown if ever smoked [facility] Medications Ordered Filled Start Stop Current Ordering Indication Dosage Frequency Signature Comments Components Source Medication Medication Date Date Medication? Clinician (SIG) Name Name Sildenafil 2022- No 50mg QD Take 1 Rosa M ey Citrate 50 5-31 05-31 tablet (50 Se ybold MG oral 12:01: 00:00 mg total) - Tablet 20 :00 by mouth Externa daily as l needed TESTOSTERON Yes Inject Rosa M ey E CYPIONATE 5-31 into the Seyb old IM 11:49: muscle - 44 Externa l Metformin Yes [id number] 500mg Take 1 Lexy HCl 500 MG 5-31 tablet Seybold oral Tablet 00:00: (500 mg - 00 total) by Externa mouth l daily (with breakfast) Sildenafil Yes [id number] 50mg QD Take 1 Lexy Citrate 50 5-31 tablet (50 Sey bold MG oral 00:00: mg total) - Tablet 00 by mouth Externa daily as l needed TESTOSTERON Yes Inject Rosa M ey E CYPIONATE 5-30 into the Seyb old IM 14:17: muscle - 15 Externa l Sildenafil Yes 50mg QD Take 1 Kelse y Citrate 50 5-30 tablet (50 Sey bold MG oral 14:17: mg total) - Tablet 15 by mouth Externa daily as l needed Erythromyci Yes [id number] 1cm Apply 1 cm Lexy n 5 MG/GM 5-30 [id number] to eye Seybol d ophthalmic 00:00: nightly - Ointment 00 Externa l Erythromyci 0 Yes [id number] 1cm Apply 1 cm Lexy n 5 MG/GM 5-30 [id number] to eye Seybol d ophthalmic 00:00: nightly - Ointment 00 Externa l [place]-3 2022- Yes [id number] 1000mg Take 1 K elsey Fatty Acids 5-19 capsule Seybo ld (Fish Oil) 00:00: (1,000 mg - 1000 MG 00 total) by Externa oral mouth 2 l Capsule times daily [place]-3 2022- Yes [id number] 1000mg Take 1 K elsey Fatty Acids 5-19 capsule Seybo ld (Fish Oil) 00:00: (1,000 mg - 1000 MG 00 total) by Externa oral mouth 2 l Capsule times daily Amlodipine 2022- No 10mg Take 1 Rosa M ey Besylate 10 5-17 05-17 tablet (10 S eybold MG oral 15:37: 00:00 mg total) - Tablet 25 :00 by mouth Externa daily l LISINOPRIL- 0 2022- No 1{tbl} Take 1 K elsey HCTZ 20-25 5-17 05-17 tablet by Sey bold MG oral 15:30: 00:00 mouth - Tablet 51 :00 daily Externa l Valacyclovi 0 2022- No 1000mg Take 1 K elsey r HCl 1 g 5-17 05-17 tablet Seybold oral Tablet 15:28: 00:00 (1,000 mg - 47 :00 total) by Externa mouth 2 l times daily TESTOSTERON Yes Inject Rosa M ey E CYPIONATE 5-17 into the Seyb old IM 15:11: muscle - 45 Externa l Sildenafil Yes 50mg QD Take 1 Kelse y Citrate 50 5-17 tablet (50 Sey bold MG oral 15:11: mg total) - Tablet 45 by mouth Externa daily as l needed LISINOPRIL- 0 Yes [id number] 2{tbl} Take 2 Lexy HCTZ 5-17 tablets by Seybold 20-12.5 MG 00:00: mouth - oral Tablet 00 daily Externa l Carvedilol 0 Yes [id number] 3.125mg Take 1 Lexy (Coreg) 5-17 tablet Seybold 3.125 MG 00:00: (3.125 mg - oral Tablet 00 total) by Ext panchito mouth in l the morning and 1 tablet (3.125 mg total) in the evening. Take with meals. LISINOPRIL- 0 Yes [id number] 2{tbl} Take 2 Lexy HCTZ 5-17 tablets by Seybold 20-12.5 MG 00:00: mouth - oral Tablet 00 daily Externa l Carvedilol 0 Yes [id number] 3.125mg Take 1 Lexy (Coreg) 5-17 tablet Seybold 3.125 MG 00:00: (3.125 mg - oral Tablet 00 total) by Ext panchito mouth in l the morning and 1 tablet (3.125 mg total) in the evening. Take with meals. LISINOPRIL- 2022-0 Yes [id number] 2{tbl} Take 2 Lexy HCTZ 5-17 tablets by Seybold 20-12.5 MG 00:00: mouth - oral Tablet 00 daily Externa l Carvedilol 2022-0 Yes [id number] 3.125mg Take 1 Lexy (Coreg) 5-17 tablet Seybold 3.125 MG 00:00: (3.125 mg - oral Tablet 00 total) by Ext panchito mouth in l the morning and 1 tablet (3.125 mg total) in the evening. Take with meals. TAKE 1 2021-0 No TABLET BY 8-22 MOUTH 00:00: DIRECTED 30 00 MINUTES PRIOR TO INTERCOURSE TAKE 1 2021-0 No TABLET BY 8-22 MOUTH 00:00: DIRECTED 30 00 MINUTES PRIOR TO INTERCOURSE TAKE 1 2021-0 No TABLET BY 8-22 MOUTH 00:00: DIRECTED 30 00 MINUTES PRIOR TO INTERCOURSE TAKE 1 2021-0 No TABLET BY 8-22 MOUTH 00:00: DIRECTED 30 00 MINUTES PRIOR TO INTERCOURSE atorvastati 2-0 No 1mg n 20 mg 6-06 tablet 00:00: 00 metformin 2022-0 No 1mg 500 mg 6-06 tablet 00:00: 00 Bromfed DM 2-0 No 10mg/5 2 mg-30 6-06 mL mg-10 [...] mg 6-06 tablet 00:00: 00 Bromfed DM 2-0 No 10mg/5 2 mg-30 6-06 mL mg-10 mg/5 00:00: mL oral 00 syrup Dose 2022-0 No Unknown 6-06 00:00: 00 Viagra 50 2022-0 No 1mg mg tablet 5-06 00:00: 00 Dose 2022-0 No Unknown 5-06 00:00: 00 Dose 2022-0 No Unknown 5-06 00:00: 00 Dose 2022-0 No Unknown 5-06 00:00: 00 Viagra 50 2022-0 No 1mg mg tablet 5-06 00:00: 00 Dose 2022-0 No Unknown 5-06 00:00: 00 Dose 2022-0 No Unknown 5-06 00:00: 00 Dose 2022-0 No Unknown 5-06 00:00: 00 Viagra 50 2022-0 No 1mg mg tablet 5-06 00:00: 00 Dose 2022-0 No Unknown 5-06 00:00: 00 Dose 2022-0 No Unknown 5-06 00:00: 00 Dose 2022-0 No Unknown 5-06 00:00: 00 Viagra 50 2022-0 No 1mg mg tablet 5-06 00:00: 00 Dose 2022-0 No Unknown 5-06 00:00: 00 Dose 2022-0 No Unknown 5-06 00:00: 00 Dose 2022-0 No Unknown 5-06 00:00: 00 lisinopril 2022-0 No 2mg 20 1-11 mg-hydrochl 00:00: orothiazide 00 25 mg tablet Dose 2022-0 No Unknown - 00:00: 00 lisinopril 2022-0 No 2mg 20 1-11 mg-hydrochl 00:00: orothiazide 00 25 mg tablet Dose 2022-0 No Unknown 1- 00:00: 00 lisinopril 2022-0 No 2mg 20 1-11 mg-hydrochl 00:00: orothiazide 00 25 mg tablet Dose 0 No Unknown 11 00:00: 00 lisinopril No 2mg 20 1-11 mg-hydrochl 00:00: orothiazide 00 25 mg tablet Dose No Unknown 09-15 00:00: 00 dexamethaso 2020- No 10mg 10 mg, Uni vers ne 05-17 Oral, ity of (DECADRON 18:30: 17:32 ONCE, 1 [place] PHOS[place] 00 :00 dose, Sun Medi snehal injection 05/17/21 at Bran ch 10 mg 1330, Routine ketorolac 2020- No 30mg 30 mg, Unive rs (TORADOL) 05-17 Intramuscu ity of injection 18:30: 17:31 lar, ONCE, [place] 30 mg 00 :00 1 dose, Medical [place] Branch 05/17/21 at 1330, CONNIE
Fa culty [...] 30 mg 00 :00 1 dose, Medical Sun Branch 05/17/21 at 1330, CONNIE
Fa culty member approving Restricted medication : DWAYNE [place] cyclobenzap Yes [id number] 10mg Take 1 Univers rine 10 mg 9-12 tablet by ity of tablet 00:00: mouth 3 [place] 00 (three) Medical times Branch daily as needed for Muscle Spasms. ibuprofen Yes [id number] 800mg Take 1 Univers 800 mg 9-12 tablet by ity of tablet 00:00: mouth [place] 00 every 6 Medical (six) Branch hours as needed for Pain (scale 4-6). cyclobenzap 2020-0 Yes [id number] 10mg Take 1 Univers rine 10 mg 9-12 tablet by ity of tablet 00:00: mouth 3 00 (three) Medical times Branch daily as needed for Muscle Spasms. ibuprofen 2020-0 Yes [id number] 800mg Take 1 Univers 800 mg 9-12 tablet by ity of tablet 00:00: mouth [place] 00 every 6 Medical (six) Branch hours as needed for Pain (scale 4-6). lisinopril 2020-0 No 2mg 20 6-08 mg-hydrochl 00:00: orothiazide 00 25 mg tablet Viagra 50 2020-0 No 1mg mg tablet 02-10 00:00: 00 Dose 1-0 No Unknown 6 00:00: 00 lisinopril 1-0 No 2mg 20 6-08 mg-hydrochl 00:00: orothiazide 00 25 mg tablet Viagra 50 2020-0 No 1mg mg tablet 02-10 00:00: 00 Dose 1-0 No Unknown 6- 00:00: 00 lisinopril 1-0 No 2mg 20 6-08 mg-hydrochl 00:00: orothiazide 00 25 mg tablet Viagra 50 1-0 No 1mg mg tablet 02-10 00:00: 00 Dose 1-0 No Unknown 6 00:00: 00 lisinopril 1-0 No 2mg 20 6-08 mg-hydrochl 00:00: orothiazide 00 25 mg tablet Viagra 50 2020-0 No 1mg mg tablet 6 00:00: 00 Dose 2021-0 No Unknown 6-08 00:00: 00 Dose 1-0 No Unknown 4-07 00:00: 00 Dose 1-0 No Unknown 4-07 00:00: 00 Dose 1-0 No Unknown 4-07 00:00: 00 Dose 1-0 No Unknown 4-07 00:00: 00 Dose 1-0 No Unknown 4-07 00:00: 00 Dose 1-0 No Unknown 4-07 00:00: 00 Dose 1-0 No Unknown 4-07 00:00: 00 Dose 1-0 No Unknown 4-07 00:00: 00 Dose 1-0 No Unknown 1-06 [...] 2019-0 No Unknown 6-16 00:00: 00 lisinopril 2020-0 [...] Uni vers (TESSALON 2-09 capsule by itsameer of PERLDataNitro) 100 00:00: mouth [place] mg capsule 00 [...] Uni vers (TESSALON 2-09 capsule by itsameer of PERLKRIS) 100 00:00: mouth [place] mg capsule 00 [...] 00:00: orothiazide 00 12.5 mg tablet nitroglycer 2015-0 No 1mg in 0.4 mg [...] 0.1 mg 3-19 tablet 00:00: 00 lisinopril 2014-0 No 1mg 10 3-12 mg-hydrochl 00:00: orothiazide 00 12.5 mg tablet lisinopril 2014-0 No 1mg 10 3-12 mg-hydrochl 00:00: orothiazide 00 12.5 mg tablet lisinopril 2014-0 No 1mg 10 3-12 mg-hydrochl 00:00: orothiazide 00 12.5 mg tablet lisinopril 2014-0 No 1mg 10 3-12 mg-hydrochl 00:00: orothiazide 00 12.5 mg tablet Vital Signs Vital Name Observation Time Observation Value Comments Source Systolic blood 2023-02-02 16:45:00 124 mm[Hg] Lexy Seybold - pressure External Diastolic blood 2023-02-02 16:45:00 80 mm[Hg] Kelse y Seybold - pressure External Heart rate 2023-02-02 16:45:00 73 /min Lexy S eybold - External Body temperature 2023-02-02 16:45:00 36.33 Mulu Rosa M ey Seybold - External Respiratory rate 2023-02-02 16:45:00 15 /min Rosa M ey Seybold - External Body height 2023-02-02 16:45:00 170.2 cm Lexy S eybold - External Body weight 2023-02-02 16:45:00 128.822 kg Lexy S eybold - External BMI 2023-02-02 16:45:00 44.48 kg/m2 Lexy S eybold - External Diastolic blood 2023-01-19 20:10:00 95 mm[Hg] Jongse y Seybold - pressure External Heart rate 2023-01-19 20:10:00 82 /min Lexy S eybold - External Body temperature 2023-01-19 20:10:00 36.5 Mulu Rosa M ey Seybold - External Respiratory rate 2023-01-19 20:10:00 19 /min Rosa M ey Seybold - External Body height 2023-01-19 20:10:00 170.2 cm Lexy S eybold - External Body weight 2023-01-19 20:10:00 127.914 kg Lexy S eybold - External BMI 2023-01-19 20:10:00 44.17 kg/m2 Lexy edwardsbold - External Systolic blood 2023-01-19 20:10:00 148 mm[Hg] Lexy Burgoslidya - pressure External Systolic blood 2021-05-17 17:07:58 138 mm[Hg] Leonaer sity of pressure [facility] Diastolic blood 2021-05-17 17:07:58 94 mm[Hg] Unive rsity of [facility] Heart rate 2021-05-17 17:07:58 75 /min Universi ty of [facility] Body temperature 2021-05-17 17:07:58 36.94 [facility]ulu [facility] Res[facility] rate 2021-05-17 17:07:58 17 /min [facility] Body height 2021-05-17 17:05:00 170.2 cm Universi ty [facility] Body weight 2021-05-17 17:05:00 117.935 kg Universi ty [facility] BMI 2021-05-17 17:05:00 [facility] Oxygen saturation in 2021-05-17 17:05:00 96 /min University Arterial blood by [facility] Pulse oximetry Branch BP Systolic 2022-07-06 13:15:00 [...] SPINE 3 VW 2021-05-17 17:50:14 Dwayne Cleveland [facility] URINALYSIS 2021-05-17 17:37:00 Dwayne Cleveland [facility] CONSENT/REFUSAL FOR 2021-05-17 16:46:48 [facility] Branch TREATMENT Ekg 2018-08-16 00:00:00 18078 Ecg Routine Ecg 2017-10-11 00:00:00 W/least 12 Lds W/i r Plan of Care Planned Activity Planned Date Details Comments Source Goal Plan of Care Note [code = 88770-3] Goal Plan of Care Note [code = 64252-6] Goal Plan of Care Note [code = 06440-0] Goal Plan of Care Note [code = 99641-1] Goal Plan of Care Note [code = 47390-5] Goal Plan of Care Note [code = 78400-6] Goal Plan of Care Note [code = 38311-4] Goal Plan of Care Note [code = 98595-1] Goal Plan of Care Note [code = 98339-7] Goal Plan of Care Note [code = 46799-2] Goal Plan of Care Note [code = 91571-8] Goal Plan of Care Note [code = 12597-0] Goal Plan of Care Note [code = 49417-4] Goal Plan of Care Note [code = 42142-3] Goal Plan of Care Note [code = 29032-0] Goal Plan of Care Note [code = 43886-5] Goal Plan of Care Note [code = 90548-4] Goal Plan of Care Note [code = 08107-2] Goal Plan of Care Note [code = 42231-3] Goal Plan of Care Note [code = 54131-1] Goal Plan of Care Note [code = 36466-6] Goal Plan of Care Note [code = 43429-2] Goal Plan of Care Note [code = 75790-0] Goal Plan of Care Note [code = 61094-6] Goal Plan of Care Note [code = 12499-5] Goal Plan of Care Note [code = 17153-3] Goal Plan of Care Note [code = 48131-4] Goal Plan of Care Note [code = 45173-2] Goal Plan of Care Note [code = 27038-5] Goal Plan of Care Note [code = 37664-2] Goal Plan of Care Note [code = 02909-1] Goal Plan of Care Note [code = 36554-8] Goal Plan of Care Note [code = 55611-3] Goal Plan of Care Note [code = 13413-7] Goal Plan of Care Note [code = 90439-8] Goal Plan of Care Note [code = 12830-7] Goal Plan of Care Note [code = 80202-4] Goal Plan of Care Note [code = 13826-5] Goal Plan of Care Note [code = 23453-7] Goal Plan of Care Note [code = 73651-1] Goal Plan of Care Note [code = 03275-9] Goal Plan of Care Note [code = 29974-5] Goal Plan of Care Note [code = 81417-0] Goal Plan of Care Note [code = 87753-0] Goal Plan of Care Note [code = 27373-2] Goal Plan of Care Note [code = 24057-9] Goal Plan of Care Note [code = 75056-7] Goal Plan of Care Note [code = 14784-1] Goal Plan of Care Note [code = 03902-1] Goal Plan of Care Note [code = 25880-4] Goal Plan of Care Note [code = 68281-7] Goal Plan of Care Note [code = 65496-7] Goal Plan of Care Note [code = 30234-5] Goal Plan of Care Note [code = 92320-9] Goal Plan of Care Note [code = 76342-4] Goal Plan of Care Note [code = 80492-5] Goal Plan of Care Note [code = 83301-5] Goal Plan of Care Note [code = 53108-7] Goal Plan of Care Note [code = 68431-6] Goal Plan of Care Note [code = 97677-5] Goal Plan of Care Note [code = 27017-7] Goal Plan of Care Note [code = 39650-4] Goal Plan of Care Note [code = 10524-1] Goal Plan of Care Note [code = 44044-8] Goal Plan of Care Note [code = 47079-0] Goal Plan of Care Note [code = 46197-5] Goal Plan of Care Note [code = 81368-8] Goal Plan of Care Note [code = 83452-8] Goal Plan of Care Note [code = 15791-2] Goal Plan of Care Note [code = 56035-2] Goal Plan of Care Note [code = 35016-7] Goal Plan of Care Note [code = 75915-4] Goal Plan of Care Note [code = 45556-0] Goal Plan of Care Note [code = 65169-5] Goal Plan of Care Note [code = 48884-2] Goal Plan of Care Note [code = 46158-3] Goal Plan of Care Note [code = 78256-7] Goal Plan of Care Note [code = 78328-8] Goal Plan of Care Note [code = 42765-2] Goal Plan of Care Note [code = 98388-2] Goal Plan of Care Note [code = 63307-7] Goal Plan of Care Note [code = 37192-6] Goal Plan of Care Note [code = 44323-6] Goal Plan of Care Note [code = 44514-6] Goal Plan of Care Note [code = 67906-2] Goal Plan of Care Note [code = 74237-6] Goal Plan of Care Note [code = 87902-4] Goal Plan of Care Note [code = 21389-7] Goal Plan of Care Note [code = 24394-6] Goal Plan of Care Note [code = 12092-4] Goal Plan of Care Note [code = 32273-4] Goal Plan of Care Note [code = 09161-6] Goal Plan of Care Note [code = 32709-6] Encounters Start End Encounter Admission Attending Care Care Encounter Source Date/Time Date/Time Type Type Clinicians Facility Department ID 2023-02-24 2023-02-24 Outpatient LEXY LEE [id number] Lexy 10:00:00 10:00:00 DULCE Seybol d 2023-02-22 2023-02-22 Outpatient SFA SFA [id number] Philip 15:21:24 15:21:24 0620 F Codey 2023-02-15 2023-02-15 Outpatient LEXY LOPEZ [id number] Lexy 09:30:00 09:30:00 KAREN Seybol d 2023-02-03 2023-02-03 Outpatient LEXY GARSIA [id number] Lexy 15:20:00 15:20:00 MARITO Seybo ld 2023-02-02 2023-02-02 Outpatient LEXY SADLER [id number] Lexy 11:45:00 11:45:00 DIANN Seybol d 2023-02-02 2023-02-02 Outpatient MARLA STAHL [id number] Lexy 00:00:00 00:00:00 MD FELICIANO Seybol d 2023-02-02 2023-02-02 Outpatient LEXY SADLER [id number] Lexy 00:00:00 00:00:00 DIANN Seybol d 2023-02-01 2023-02-01 Outpatient DIAZ, LEXY STAHL [id number] Lexy 14:40:00 14:40:00 DENIA Seybol d 2023-01-22 2023-01-22 Outpatient SFA SFA 023 Philip 10:22:15 10:22:15 0520 [facility] 2023-01-21 2023-01-21 Outpatient PREZAKathia LEXY STAHL [id number] Lexy 00:00:00 00:00:00 DIANN Seybol d 2023-01-21 2023-01-21 Outpatient PREZAS, LEXY STAHL [id number] Lexy 00:00:00 00:00:00 DIANN Seybol d 2023-01-20 2023-01-20 Outpatient PREZAKathia LEXY STAHL [id number] Lexy 00:00:00 00:00:00 DIANN Seybol d 2023-01-19 2023-01-19 Outpatient LAB90 LEXY STAHL [id number] Lexy 15:55:00 15:55:00 Seybol d 2023-01-19 2023-01-19 Outpatient PREZAS LEXY STAHL [id number] Lexy 15:00:00 15:00:00 DIANN Seybol d 2022-12-30 2022-12-30 Outpatient SFA SFA 023 Philip 11:51:08 11:51:08 0427 [facility] 2022-12-21 2022-12-21 Outpatient SFA SFA 023 Philip 11:35:05 11:35:05 0418 [facility] 2022-11-29 2022-11-29 Outpatient SFA SFA [id number] Philip 10:35:36 10:35:36 0327 [facility] 2022-11-17 2022-11-17 Outpatient SFA SFA [id number] Philip 16:24:03 16:24:03 0315 F [place] 2022-11-03 2022-11-03 Outpatient SFA SFA [id number] Philip 13:33:54 13:33:54 0301 [facility] 2022-11-01 2022-11-01 Outpatient SFA SFA [id number] Philip 11:06:48 11:06:48 0227 F Codey 2022-10-20 2022-10-20 Outpatient SFA SFA Philip 09:10:03 09:10:03 0215 F Codey 2022-10-19 2022-10-19 Outpatient LEXY ALEMAN LEXY [id number] Lexy 16:00:00 16:00:00 ANTONIO Seybol d 2022-10-15 2022-10-15 Outpatient LEXY ALEMAN [id number] Lexy 08:30:00 08:30:00 ANTONIO Seybol d 2022-08-02 2022-08-02 Outpatient SFA SFA Philip 09:56:02 09:56:02 1128 F Codey 2022-07-19 2022-07-19 Outpatient SFA SFA Philip 10:54:12 10:54:12 1114 F Codey 2022-07-12 2022-07-12 Outpatient SFA SFA Philip 13:01:10 13:01:10 1107 F Codey 2022-07-06 2022-07-06 Outpatient SFA SFA Philip 14:38:17 14:38:17 1101 F Codey 2022-07-06 2022-07-06 Outpatient [id number] 00:00:00 00:00:00 Visit 86x8-5fxt 9x6-3gks-6 -7ej9-0dg bd6-2ad3ca [id number] 2022-06-29 2022-06-29 Outpatient SFA SFA Philip 11:06:43 11:06:43 1025 F Codey 2022-06-29 2022-06-29 Outpatient [id number] 00:00:00 00:00:00 Visit 6v36-9bn7 b29-3mf0-2 -8803-d8e 803-d8eb86 [id number] [id number] 2022-06-23 2022-06-23 Outpatient SFA SFA Philip 10:34:08 10:34:08 1019 F Codey 2022-06-23 2022-06-23 Outpatient [id number] 00:00:00 00:00:00 Visit 99s5-255f 5r0-941o-h -y109-v40 [id number] 7848-09-29 2022-06-03 Outpatient [facility] [id number] Damian Palacios 11:37:54 11:37:54 0929 F Codey 2022-05-27 2022-05-27 Outpatient [id number] 00:00:00 00:00:00 Visit 6v8o-09w0 t8t-76u5-x -p53e-xvq 05a-ecbd1c [id number] 1738-09-12 2021-05-17 Emergency Ib[place]unle, [facility] [id number] Univers 12:20:00 13:32:00 [facility] Col[place] [id number] [id number] [facility] 084 Branch 2021-05-17 2021-05-17 Emergency X [facility] ERT [id number] Univers 11:46:00 11:46:00 ity [facility] Results Test Description Test Time Test Comments Results Result Comments Source TESTOSTERONE 2022-06-30 06:44:59 Test Item Value Reference Range Interpretation Comme nts TESTOSTERONE (test code = 2830) 181 NG/DL 300-890 L UNLESS OTHERWISE INDICATED, ALL TESTING PERFORM [facility] [address] [place] [id number] LABORATORY DIRE CTOR: DIAMOND ODELL M.D. CLIA NUMBER [id number] [facility] [place] [id number] 00:00:00 Test Item Value Reference Range Interpretation Comments TESTOSTERONE (test code = 2830) 181 NG/DL [id number] 00:00:00 Test Item Value Reference Range Interpretation Comments TESTOSTERONE (test code = 2830) 181 NG/DL TSH, THIRD [id number] 06:46:28 Test Item Value Reference Range Interpretation Comments TSH, THIRD GENERATION (test code 2.570 UIU/ML 0.400-4.100 = 2821) SEDIMENTATION [id number] 06:44:10 Test Item Value Reference Range Interpretation Comments SEDIMENTATION RATE (test code = 16 MM/HOUR 0-15 H 1017) [id number] 05:48:38 Test Item Value Reference Range Interpretation Comments TESTOSTERONE (test code = 2830) 173 NG/DL 300-890 L C-REACTIVE [id number] 05:06:35 Test Item Value Reference Range Interpretation Comments C-REACTIVE PROTEIN (test code = 0.7 MG/DL <0.5 H 3513) [id number] 04:49:21 Test Item Value Reference Range Interpretation Comments CREATININE (test 1.07 MG/DL 0.80-1.40 code = 2214) eGFR (2020 CKD-EPI) 81 ML/MIN/1.73 >60 UNLES S OTHERWISE (test code = 41921) INDICATE D, ALL TESTING PERFORM ED [facility], [facility]. [address] [place] [id number] [place] [address] DIRECTOR: DIAMOND ODELL M.D. CLIA NUMBER [id number] CAP ACCREDITATION N O. [id number] CBC W/AUTO DIFF WITH [id number] 04:05:47 Test Item Value Reference Range Interpretation [...] RBCS 0.00 K/UL 0.00-0.11 (test code = 55137) CBC W/AUTO [id number] 00:00:00 Test Item Value Reference Range Interpretation [...] NUCLEATED RBCS (test code = 0.00 K/UL 84831) CBC W/AUTO [id number] 00:00:00 Test Item Value Reference Range Interpretation [...] NUCLEATED RBCS (test code = 0.00 K/UL 62017) CBC W/AUTO [id number] 00:00:00 Test Item Value Reference Range Interpretation [...] NUCLEATED RBCS (test code = 0.00 K/UL 81666) [id number] 00:00:00 Test Item Value Reference Range Interpretation Comments TESTOSTERONE (test code = 2830) 173 NG/DL [id number] 00:00:00 Test Item Value Reference Range Interpretation Comments TESTOSTERONE (test code = 2830) 173 NG/DL TSH, THIRD [id number] 00:00:00 Test Item Value Reference Range Interpretation Comments TSH, THIRD GENERATION (test code 2.570 UIU/ML = 2821) TSH, THIRD [id number] 00:00:00 Test Item Value Reference Range Interpretation Comments TSH, THIRD GENERATION (test code 2.570 UIU/ML = 2821) TSH, THIRD [id number] 00:00:00 Test Item Value Reference Range Interpretation Comments TSH, THIRD GENERATION (test code 2.570 UIU/ML = 2821) SEDIMENTATION [id number] 00:00:00 Test Item Value Reference Range Interpretation Comments SEDIMENTATION RATE (test code = 16 MM/HOUR 1017) SEDIMENTATION [id number] 00:00:00 Test Item Value Reference Range Interpretation Comments SEDIMENTATION RATE (test code = 16 MM/HOUR 1017) C-REACTIVE [id number] 00:00:00 Test Item Value Reference Range Interpretation Comments C-REACTIVE PROTEIN (test code = 0.7 MG/DL 3513) C-REACTIVE [id number] 00:00:00 Test Item Value Reference Range Interpretation Comments C-REACTIVE PROTEIN (test code = 0.7 MG/DL 3513) [id number] 00:00:00 Test Item Value Reference Range Interpretation Comments CREATININE (test code = 2214) 1.07 MG/DL eGFR (2020 CKD-EPI) (test code 81 ML/MIN/1.73 = 52402) [id number] 00:00:00 Test Item Value Reference Range Interpretation Comments CREATININE (test code = 2214) 1.07 MG/DL eGFR (2020 CKD-EPI) (test code 81 ML/MIN/1.73 = 26653) CBC W/AUTO [id number] 00:00:00 Test Item Value Reference Range Interpretation [...] NUCLEATED RBCS (test code = 0.00 K/UL 78046) CBC W/AUTO [id number] 00:00:00 Test Item Value Reference Range Interpretation [...] NUCLEATED RBCS (test code = 0.00 K/UL 46773) CBC W/AUTO [id number] 00:00:00 Test Item Value Reference Range Interpretation [...] NUCLEATED RBCS (test code = 0.00 K/UL 26901) [id number] 00:00:00 Test Item Value Reference Range Interpretation Comments TESTOSTERONE (test code = 2830) 173 NG/DL [id number] 00:00:00 Test Item Value Reference Range Interpretation Comments TESTOSTERONE (test code = 2830) 173 NG/DL TSH, THIRD [id number] 00:00:00 Test Item Value Reference Range Interpretation Comments TSH, THIRD GENERATION (test code 2.570 UIU/ML = 2821) TSH, THIRD [id number] 00:00:00 Test Item Value Reference Range Interpretation Comments TSH, THIRD GENERATION (test code 2.570 UIU/ML = 2821) TSH, THIRD [id number] 00:00:00 Test Item Value Reference Range Interpretation Comments TSH, THIRD GENERATION (test code 2.570 UIU/ML = 2821) SEDIMENTATION [id number] 00:00:00 Test Item Value Reference Range Interpretation Comments SEDIMENTATION RATE (test code = 16 MM/HOUR 1017) SEDIMENTATION [id number] 00:00:00 Test Item Value Reference Range Interpretation Comments SEDIMENTATION RATE (test code = 16 MM/HOUR 1017) C-REACTIVE [id number] 00:00:00 Test Item Value Reference Range Interpretation Comments C-REACTIVE PROTEIN (test code = 0.7 MG/DL 3513) C-REACTIVE [id number] 00:00:00 Test Item Value Reference Range Interpretation Comments C-REACTIVE PROTEIN (test code = 0.7 MG/DL 3513) [id number] 00:00:00 Test Item Value Reference Range Interpretation Comments CREATININE (test code = 2214) 1.07 MG/DL eGFR (2020 CKD-EPI) (test code 81 ML/MIN/1.73 = 32976) [id number] 00:00:00 Test Item Value Reference Range Interpretation Comments CREATININE (test code = 2214) 1.07 MG/DL eGFR (2020 CKD-EPI) (test code 81 ML/MIN/1.73 = 29027) CBC W/AUTO [id number] 00:00:00 Test Item Value Reference Range Interpretation [...] NUCLEATED RBCS (test code = 0.00 K/UL 96214) CBC W/AUTO [id number] 00:00:00 Test Item Value Reference Range Interpretation [...] NUCLEATED RBCS (test code = 0.00 K/UL 26083) CBC W/AUTO [id number] 00:00:00 Test Item Value Reference Range Interpretation [...] NUCLEATED RBCS (test code = 0.00 K/UL 81016) [id number] 00:00:00 Test Item Value Reference Range Interpretation Comments TESTOSTERONE (test code = 2830) 173 NG/DL [id number] 00:00:00 Test Item Value Reference Range Interpretation Comments TESTOSTERONE (test code = 2830) 173 NG/DL TSH, THIRD [id number] 00:00:00 Test Item Value Reference Range Interpretation Comments TSH, THIRD GENERATION (test code 2.570 UIU/ML = 2821) TSH, THIRD [id number] 00:00:00 Test Item Value Reference Range Interpretation Comments TSH, THIRD GENERATION (test code 2.570 UIU/ML = 2821) TSH, THIRD [id number] 00:00:00 Test Item Value Reference Range Interpretation Comments TSH, THIRD GENERATION (test code 2.570 UIU/ML = 2821) SEDIMENTATION [id number] 00:00:00 Test Item Value Reference Range Interpretation Comments SEDIMENTATION RATE (test code = 16 MM/HOUR 1017) SEDIMENTATION [id number] 00:00:00 Test Item Value Reference Range Interpretation Comments SEDIMENTATION RATE (test code = 16 MM/HOUR 1017) C-REACTIVE [id number] 00:00:00 Test Item Value Reference Range Interpretation Comments C-REACTIVE PROTEIN (test code = 0.7 MG/DL 3513) C-REACTIVE [id number] 00:00:00 Test Item Value Reference Range Interpretation Comments C-REACTIVE PROTEIN (test code = 0.7 MG/DL 3513) [id number] 00:00:00 Test Item Value Reference Range Interpretation Comments CREATININE (test code = 2214) 1.07 MG/DL eGFR (2020 CKD-EPI) (test code 81 ML/MIN/1.73 = 10527) [id number] 00:00:00 Test Item Value Reference Range Interpretation Comments CREATININE (test code = 2214) 1.07 MG/DL eGFR (2020 CKD-EPI) (test code 81 ML/MIN/1.73 = 15010) HEMOGLOBIN [id number] 10:19:29 Test Item Value Reference Range Interpretation Comments HEMOGLOBIN A1c (test code = 15437) 5.9 % 4.2-5.6 H COMPREHENSIVE METABOLIC [id number] 04:39:34 Test Item Value Reference Range Interpretation Comments GLUCOSE (test code = 126 MG/DL 70-99 H 2216) BUN (test code = 20 MG/DL 02-22) CREATININE (test 1.12 MG/DL 0.80-1.40 code = 2214) eGFR (2020 CKD-EPI) 77 ML/MIN/1.73 >60 (test code = 63517) CALC BUN/CREAT (test 18 RATIO 6-28 code = 2235) SODIUM (test code = 141 MEQ/L 453-501 8887) POTASSIUM (test code 3.8 MEQ/L 3.5-5.4 = 2227) CHLORIDE (test code 102 MEQ/L 95-107 = 2215) CARBON DIOXIDE (test 27 MEQ/L 19-31 code = 2206) CALCIUM (test code = 10.0 MG/DL 8.5-10.5 2208) PROTEIN, TOTAL (test 7.1 G/DL 6.1-8.3 code = 2229) ALBUMIN (test code = 4.2 G/DL 3.5-5.2 2200) CALC GLOBULIN (test 2.9 G/DL 1.9-3.7 code = 2240) CALC A/G RATIO (test 1.4 RATIO 1.0-2.6 code = 2234) BILIRUBIN, TOTAL 0.4 MG/DL See_Comment [Automated message] (test code = 2207) The syste m which generated this result transmit sinai reference range : <=1.2. The refe rence range was not u sed to interpret th is result as normal/abnormal . ALKALINE PHOSPHATASE 101 U/L 40-123 (test code = 2204) AST (test code = 24 U/L 50 2217) ALT (test code = 42 U/L 50 2218) LIPID [id number] 04:39:34 Test Item Value Reference Range Interpretation [...] MOREINFORMATION , SEE CLIENT ANNOUNCE MENT AT [email or web address] RISK RATIO LDL/HDL 3.35 RATIO <3.55 UNLESS O THERWISE (test code = 223) INDICATED , ALL TESTING PERFORMED [facility], [facility]. [address], [place] [id number] [place] [address] DIRECTOR: DIAMOND ODELL M.D. IA NUMBER [id number] CAP ACCREDITATION N O. [id number] COMPREHENSIVE METABOLIC [id number] 00:00:00 Test Item Value Reference Range Interpretation Comments GLUCOSE (test code = 2217) 126 MG/DL BUN (test code = 2208) 20 MG/DL CREATININE (test code = 2214) 1.12 MG/DL eGFR (2020 CKD-EPI) (test code 77 ML/MIN/1.73 = 20405) CALC BUN/CREAT (test code = 18 RATIO 5) SODIUM (test code = 223) 141 MEQ/L POTASSIUM (test code = 2228) 3.8 MEQ/L CHLORIDE (test code = 2215) 102 MEQ/L CARBON DIOXIDE (test code = 27 MEQ/L 2205) CALCIUM (test code = 2209) 10.0 MG/DL PROTEIN, TOTAL (test code = 7.1 G/DL 2228) ALBUMIN (test code = 220) 4.2 G/DL CALC GLOBULIN (test code = 2.9 G/DL 2240) CALC A/G RATIO (test code = 1.4 RATIO 2234) BILIRUBIN, TOTAL (test code = 0.4 MG/DL 2206) ALKALINE PHOSPHATASE (test 101 U/L code = 2204) AST (test code = 2218) 24 U/L ALT (test code = 2219) 42 U/L COMPREHENSIVE METABOLIC [id number] 00:00:00 Test Item Value Reference Range Interpretation Comments GLUCOSE (test code = 2217) 126 MG/DL BUN (test code = 2208) 20 MG/DL CREATININE (test code = 2214) 1.12 MG/DL eGFR (2020 CKD-EPI) (test code 77 ML/MIN/1.73 = 20594) CALC BUN/CREAT (test code = 18 RATIO [...] = 0.4 MG/DL 7) ALKALINE PHOSPHATASE (test 101 U/L code = 2204) AST (test code = 2218) 24 U/L ALT (test code = 2219) 42 U/L HEMOGLOBIN [id number] 00:00:00 Test Item Value Reference Range Interpretation Comments HEMOGLOBIN A1c (test code = 11865) 5.9 % HEMOGLOBIN [id number] 00:00:00 Test Item Value Reference Range Interpretation Comments HEMOGLOBIN A1c (test code = 64616) 5.9 % HEMOGLOBIN [id number] 00:00:00 Test Item Value Reference Range Interpretation Comments HEMOGLOBIN A1c (test code = 61719) 5.9 % LIPID [id number] 00:00:00 Test Item Value Reference Range Interpretation Comments CHOLESTEROL (test code = 2210) 246 MG/DL TRIGLYCERIDES (test code = 2232) 209 MG/DL HDL CHOLESTEROL (test code = 2220) 48 MG/DL CALC LDL CHOL (test code = 2237) 161 MG/DL RISK RATIO LDL/HDL (test code = 3.35 RATIO 2238) LIPID [id number] 00:00:00 Test Item Value Reference Range Interpretation Comments CHOLESTEROL (test code = 2210) 246 MG/DL TRIGLYCERIDES (test code = 2232) 209 MG/DL HDL CHOLESTEROL (test code = 2220) 48 MG/DL CALC LDL CHOL (test code = 2237) 161 MG/DL RISK RATIO LDL/HDL (test code = 3.35 RATIO 2238) COMPREHENSIVE METABOLIC [id number] 00:00:00 Test Item Value Reference Range Interpretation Comments GLUCOSE (test code = 2217) 126 MG/DL BUN (test code = 2208) 20 MG/DL CREATININE (test code = 2214) 1.12 MG/DL eGFR (2020 CKD-EPI) (test code 77 ML/MIN/1.73 = 64894) CALC BUN/CREAT (test code = 18 RATIO [...] code = 2219) 42 U/L COMPREHENSIVE METABOLIC [id number] 00:00:00 Test Item Value Reference Range Interpretation Comments GLUCOSE (test code = 2217) 126 MG/DL BUN (test code = 2208) 20 MG/DL CREATININE (test code = 2214) 1.12 MG/DL eGFR (2020 CKD-EPI) (test code 77 ML/MIN/1.73 = 68264) CALC BUN/CREAT (test code = 18 RATIO [...] A/G RATIO (test code = 1.4 RATIO 2233) BILIRUBIN, TOTAL (test code = 0.4 MG/DL 2206) ALKALINE PHOSPHATASE (test 101 U/L code = 2204) AST (test code = 2218) 24 U/L ALT (test code = 2219) 42 U/L HEMOGLOBIN [id number] 00:00:00 Test Item Value Reference Range Interpretation Comments HEMOGLOBIN A1c (test code = 78125) 5.9 % HEMOGLOBIN [id number] 00:00:00 Test Item Value Reference Range Interpretation Comments HEMOGLOBIN A1c (test code = 99884) 5.9 % HEMOGLOBIN [id number] 00:00:00 Test Item Value Reference Range Interpretation Comments HEMOGLOBIN A1c (test code = 09910) 5.9 % LIPID [id number] 00:00:00 Test Item Value Reference Range Interpretation Comments CHOLESTEROL (test code = 2210) 246 MG/DL TRIGLYCERIDES (test code = 2232) 209 MG/DL HDL CHOLESTEROL (test code = 2220) 48 MG/DL CALC LDL CHOL (test code = 2237) 161 MG/DL RISK RATIO LDL/HDL (test code = 3.35 RATIO 2238) LIPID [id number] 00:00:00 Test Item Value Reference Range Interpretation Comments CHOLESTEROL (test code = 2210) 246 MG/DL TRIGLYCERIDES (test code = 2232) 209 MG/DL HDL CHOLESTEROL (test code = 2220) 48 MG/DL CALC LDL CHOL (test code = 2237) 161 MG/DL RISK RATIO LDL/HDL (test code = 3.35 RATIO 2238) COMPREHENSIVE METABOLIC [id number] 00:00:00 Test Item Value Reference Range Interpretation Comments GLUCOSE (test code = 2217) 126 MG/DL BUN (test code = 2208) 20 MG/DL CREATININE (test code = 2214) 1.12 MG/DL eGFR (2020 CKD-EPI) (test code 77 ML/MIN/1.73 = 42935) CALC BUN/CREAT (test code = 18 RATIO 2235) SODIUM (test code = 2231) 141 MEQ/L POTASSIUM (test code = 2228) 3.8 MEQ/L CHLORIDE (test code = 2215) 102 MEQ/L CARBON DIOXIDE (test code = 27 MEQ/L 220) CALCIUM (test code = 2209) 10.0 MG/DL [...] code = 2219) 42 U/L COMPREHENSIVE METABOLIC [id number] 00:00:00 Test Item Value Reference Range Interpretation Comments GLUCOSE (test code = 2217) 126 MG/DL BUN (test code = 2208) 20 MG/DL CREATININE (test code = 2214) 1.12 MG/DL eGFR (2020 CKD-EPI) (test code 77 ML/MIN/1.73 = 85414) CALC BUN/CREAT (test code = 18 RATIO [...] (test code = 2219) 42 U/L HEMOGLOBIN [id number] 00:00:00 Test Item Value Reference Range Interpretation Comments HEMOGLOBIN A1c (test code = 09013) 5.9 % HEMOGLOBIN [id number] 00:00:00 Test Item Value Reference Range Interpretation Comments HEMOGLOBIN A1c (test code = 89262) 5.9 % HEMOGLOBIN [id number] 00:00:00 Test Item Value Reference Range Interpretation Comments HEMOGLOBIN A1c (test code = 27703) 5.9 % LIPID [id number] 00:00:00 Test Item Value Reference Range Interpretation Comments CHOLESTEROL (test code = 2210) 246 MG/DL TRIGLYCERIDES (test code = 2232) 209 MG/DL HDL CHOLESTEROL (test code = 2220) 48 MG/DL CALC LDL CHOL (test code = 2237) 161 MG/DL RISK RATIO LDL/HDL (test code = 3.35 RATIO 2238) LIPID [id number] 00:00:00 Test Item Value Reference Range Interpretation Comments CHOLESTEROL (test code = 2210) 246 MG/DL TRIGLYCERIDES (test code = 2232) 209 MG/DL HDL CHOLESTEROL (test code = 2220) 48 MG/DL CALC LDL CHOL (test code = 2237) 161 MG/DL RISK RATIO LDL/HDL (test code = 3.35 RATIO 2238) HEMOGLOBIN [id number] 05:30:45 Test Item Value Reference Range Interpretation Comments HEMOGLOBIN A1c (test 6.2 % 4.2-5.6 H UNLESS OTHERWISE code = 20753) INDICATED, ALL TESTING PERFORMED [facility]. [address] [place], [place] [id number] [address] DIRECTOR: DIAMOND ODELL M.D. CLIA NUMBER [id number] CAP ACCREDITATION N O. [id number] COMPREHENSIVE METABOLIC [id number] 04:18:35 Test Item Value Reference Range Interpretation Comments GLUCOSE (test code = 167 MG/DL 70-99 H 2216) BUN (test code = 21 MG/DL 6-20 H 2207) CREATININE (test 1.18 MG/DL 0.80-1.40 code = 2214) eGFR (2020 CKD-EPI) 72 ML/MIN/1.73 >60 (test code = 98485) CALC BUN/CREAT (test 18 RATIO 03-02 code = 2235) SODIUM (test code = 139 MEQ/L 502-066 1426) POTASSIUM (test code 4.3 MEQ/L 3.5-5.4 = 2227) CHLORIDE (test code 100 MEQ/L 95-107 = 2214) CARBON DIOXIDE (test 29 MEQ/L 19-31 code = 220) CALCIUM (test code = 9.7 MG/DL 8.5-10.5 2208) PROTEIN, TOTAL (test 7.4 G/DL 6.1-8.3 code = 222) ALBUMIN (test code = 4.1 G/DL 3.5-5.2 2200) CALC GLOBULIN (test 3.3 G/DL 1.9-3.7 code = 224) CALC A/G RATIO (test 1.2 RATIO 1.0-2.6 code = 223) BILIRUBIN, TOTAL 0.5 MG/DL See_Comment [Automated message] (test code = 220) The syste m which generated this result transmit sinai reference range : <=1.2. The refe rence range was not u sed to interpret th is result as normal/abnormal . ALKALINE PHOSPHATASE 124 U/L 40-123 H (test code = 220) AST (test code = 17 U/L 9-50 2217) ALT (test code = 32 U/L 5-50 2218) LIPID [id number] 04:18:35 Test Item Value Reference Range Interpretation [...] MOREINFORMATION , SEE CLIENT ANNOUNCE MENT AT [email or web address] RISK RATIO LDL/HDL 2.96 RATIO <3.55 (test code = 2238) COMPREHENSIVE METABOLIC [id number] 00:00:00 Test Item Value Reference Range Interpretation Comments GLUCOSE (test code = 2217) 167 MG/DL BUN (test code = 2208) 21 MG/DL CREATININE (test code = 2214) 1.18 MG/DL eGFR (2020 CKD-EPI) (test code 72 ML/MIN/1.73 = 79614) CALC BUN/CREAT (test code = 18 RATIO [...] code = 2219) 32 U/L COMPREHENSIVE METABOLIC [id number] 00:00:00 Test Item Value Reference Range Interpretation Comments GLUCOSE (test code = 2217) 167 MG/DL BUN (test code = 2208) 21 MG/DL CREATININE (test code = 2214) 1.18 MG/DL eGFR (2020 CKD-EPI) (test code 72 ML/MIN/1.73 = 85905) CALC BUN/CREAT (test code = 18 RATIO 2235) SODIUM (test code = 2231) 139 MEQ/L POTASSIUM (test code = 2228) 4.3 MEQ/L CHLORIDE (test code = 2215) 100 MEQ/L CARBON DIOXIDE (test code = 29 MEQ/L 220) CALCIUM (test code = 2209) 9.7 MG/DL [...] (test code = 2219) 32 U/L LIPID [id number] 00:00:00 Test Item Value Reference Range Interpretation Comments CHOLESTEROL (test code = 2210) 240 MG/DL TRIGLYCERIDES (test code = 2232) 160 MG/DL HDL CHOLESTEROL (test code = 2220) 53 MG/DL CALC LDL CHOL (test code = 2237) 157 MG/DL RISK RATIO LDL/HDL (test code = 2.96 RATIO 2238) LIPID [id number] 00:00:00 Test Item Value Reference Range Interpretation Comments CHOLESTEROL (test code = 2210) 240 MG/DL TRIGLYCERIDES (test code = 2232) 160 MG/DL HDL CHOLESTEROL (test code = 2220) 53 MG/DL CALC LDL CHOL (test code = 2237) 157 MG/DL RISK RATIO LDL/HDL (test code = 2.96 RATIO 2238) 2708 HEMOGLOBIN [id number] 00:00:00 Test Item Value Reference Range Interpretation Comments HEMOGLOBIN A1c (test code = 31638) 6.2 % 2708 HEMOGLOBIN [id number] 00:00:00 Test Item Value Reference Range Interpretation Comments HEMOGLOBIN A1c (test code = 05377) 6.2 % 2708 HEMOGLOBIN [id number] 00:00:00 Test Item Value Reference Range Interpretation Comments HEMOGLOBIN A1c (test code = 97150) 6.2 % COMPREHENSIVE METABOLIC [id number] 00:00:00 Test Item Value Reference Range Interpretation Comments GLUCOSE (test code = 2217) 167 MG/DL BUN (test code = 2208) 21 MG/DL CREATININE (test code = 2214) 1.18 MG/DL eGFR (2020 CKD-EPI) (test code 72 ML/MIN/1.73 = 96863) CALC BUN/CREAT (test code = 18 RATIO [...] code = 2219) 32 U/L COMPREHENSIVE METABOLIC [id number] 00:00:00 Test Item Value Reference Range Interpretation Comments GLUCOSE (test code = 2217) 167 MG/DL BUN (test code = 2208) 21 MG/DL CREATININE (test code = 2214) 1.18 MG/DL eGFR (2020 CKD-EPI) (test code 72 ML/MIN/1.73 = 88968) CALC BUN/CREAT (test code = 18 RATIO [...] (test code = 2219) 32 U/L LIPID [id number] 00:00:00 Test Item Value Reference Range Interpretation Comments CHOLESTEROL (test code = 2210) 240 MG/DL TRIGLYCERIDES (test code = 2232) 160 MG/DL HDL CHOLESTEROL (test code = 2220) 53 MG/DL CALC LDL CHOL (test code = 2237) 157 MG/DL RISK RATIO LDL/HDL (test code = 2.96 RATIO 2238) LIPID [id number] 00:00:00 Test Item Value Reference Range Interpretation Comments CHOLESTEROL (test code = 2210) 240 MG/DL TRIGLYCERIDES (test code = 2232) 160 MG/DL HDL CHOLESTEROL (test code = 2220) 53 MG/DL CALC LDL CHOL (test code = 2237) 157 MG/DL RISK RATIO LDL/HDL (test code = 2.96 RATIO 2238) 2708 HEMOGLOBIN [id number] 00:00:00 Test Item Value Reference Range Interpretation Comments HEMOGLOBIN A1c (test code = 18178) 6.2 % 2708 HEMOGLOBIN [id number] 00:00:00 Test Item Value Reference Range Interpretation Comments HEMOGLOBIN A1c (test code = 01819) 6.2 % 2708 HEMOGLOBIN [id number] 00:00:00 Test Item Value Reference Range Interpretation Comments HEMOGLOBIN A1c (test code = 69956) 6.2 % COMPREHENSIVE METABOLIC [id number] 00:00:00 Test Item Value Reference Range Interpretation Comments GLUCOSE (test code = 2217) 167 MG/DL BUN (test code = 2208) 21 MG/DL CREATININE (test code = 2214) 1.18 MG/DL eGFR (2020 CKD-EPI) (test code 72 ML/MIN/1.73 = 94875) CALC BUN/CREAT (test code = 18 RATIO [...] code = 2219) 32 U/L COMPREHENSIVE METABOLIC [id number] 00:00:00 Test Item Value Reference Range Interpretation Comments GLUCOSE (test code = 2217) 167 MG/DL BUN (test code = 2208) 21 MG/DL CREATININE (test code = 2214) 1.18 MG/DL eGFR (2020 CKD-EPI) (test code 72 ML/MIN/1.73 = 15438) CALC BUN/CREAT (test code = 18 RATIO 2235) SODIUM (test code = 2231) 139 MEQ/L POTASSIUM (test code = 2228) 4.3 MEQ/L CHLORIDE (test code = 2215) 100 MEQ/L CARBON DIOXIDE (test code = 29 MEQ/L 2206) CALCIUM (test code = 2209) 9.7 MG/DL PROTEIN, TOTAL (test code = 7.4 G/DL 222) ALBUMIN (test code = 2201) 4.1 G/DL CALC GLOBULIN (test code = 3.3 G/DL 2240) CALC A/G RATIO (test code = 1.2 RATIO 2234) BILIRUBIN, TOTAL (test code = 0.5 MG/DL 2206) ALKALINE PHOSPHATASE (test 124 U/L code = 2204) AST (test code = 2218) 17 U/L ALT (test code = 2219) 32 U/L COMPREHENSIVE METABOLIC [id number] 00:00:00 Test Item Value Reference Range Interpretation Comments GLUCOSE (test code = 2217) 167 MG/DL BUN (test code = 2208) 21 MG/DL CREATININE (test code = 2214) 1.18 MG/DL eGFR (2020 CKD-EPI) (test code 72 ML/MIN/1.73 = 49899) CALC BUN/CREAT (test code = 18 RATIO 2235) SODIUM (test code = 2231) 139 MEQ/L POTASSIUM (test code = 2228) 4.3 MEQ/L CHLORIDE (test code = 2215) 100 MEQ/L CARBON DIOXIDE (test code = 29 MEQ/L 2206) CALCIUM (test code = 2209) 9.7 MG/DL [...] (test code = 2219) 32 U/L LIPID [id number] 00:00:00 Test Item Value Reference Range Interpretation Comments CHOLESTEROL (test code = 2210) 240 MG/DL TRIGLYCERIDES (test code = 2232) 160 MG/DL HDL CHOLESTEROL (test code = 2220) 53 MG/DL CALC LDL CHOL (test code = 2237) 157 MG/DL RISK RATIO LDL/HDL (test code = 2.96 RATIO 2238) LIPID [id number] 00:00:00 Test Item Value Reference Range Interpretation Comments CHOLESTEROL (test code = 2210) 240 MG/DL TRIGLYCERIDES (test code = 2232) 160 MG/DL HDL CHOLESTEROL (test code = 2220) 53 MG/DL CALC LDL CHOL (test code = 2237) 157 MG/DL RISK RATIO LDL/HDL (test code = 2.96 RATIO 2238) 2708 HEMOGLOBIN [id number] 00:00:00 Test Item Value Reference Range Interpretation Comments HEMOGLOBIN A1c (test code = 35866) 6.2 % 2708 HEMOGLOBIN [id number] 00:00:00 Test Item Value Reference Range Interpretation Comments HEMOGLOBIN A1c (test code = 26215) 6.2 % 2708 HEMOGLOBIN [id number] 00:00:00 Test Item Value Reference Range Interpretation Comments HEMOGLOBIN A1c (test code = 42609) 6.2 % COMPREHENSIVE METABOLIC [id number] 00:00:00 Test Item Value Reference Range Interpretation Comments GLUCOSE (test code = 2217) 167 MG/DL BUN (test code = 2208) 21 MG/DL CREATININE (test code = 2214) 1.18 MG/DL eGFR (2020 CKD-EPI) (test code 72 ML/MIN/1.73 = 83929) CALC BUN/CREAT (test code = 18 RATIO [...] (test code = 2219) 32 U/L LIPID [id number] 00:00:00 Test Item Value Reference Range Interpretation Comments CHOLESTEROL (test code = 2210) 240 MG/DL TRIGLYCERIDES (test code = 2232) 160 MG/DL HDL CHOLESTEROL (test code = 2220) 53 MG/DL CALC LDL CHOL (test code = 2237) 157 MG/DL RISK RATIO LDL/HDL (test code = 2.96 RATIO 2238) LIPID [id number] 00:00:00 Test Item Value Reference Range Interpretation Comments CHOLESTEROL (test code = 2210) 240 MG/DL TRIGLYCERIDES (test code = 2232) 160 MG/DL HDL CHOLESTEROL (test code = 2220) 53 MG/DL CALC LDL CHOL (test code = 2237) 157 MG/DL RISK RATIO LDL/HDL (test code = 2.96 RATIO 2238) 2708 HEMOGLOBIN [id number] 00:00:00 Test Item Value Reference Range Interpretation Comments HEMOGLOBIN A1c (test code = 29359) 6.2 % 2708 HEMOGLOBIN [id number] 00:00:00 Test Item Value Reference Range Interpretation Comments HEMOGLOBIN A1c (test code = 34616) 6.2 % 2708 HEMOGLOBIN [id number] 00:00:00 Test Item Value Reference Range Interpretation Comments HEMOGLOBIN A1c (test code = 76127) 6.2 % [id number] 17:51:37 Test Item Value Reference Range Interpretation Comments APPEARANCE (test code = Clear Clear [id number]) COLOR (test code = Yellow Yellow [id number]) PH (test code = 4.8-8.0 2439077836) SP GRAVITY (test code = 1.003-1.030 3450684999) GLU U QUAL (test code = Normal Normal 1536311210) BLOOD (test code = Negative Negative 5115288462) KETONES (test code = Negative Negative 6044180457) PROTEIN (test code = Negative Negative 2887-8) UROBILIN (test code = Normal Normal 8021124537) BILIRUBIN (test code = Negative Negative 4559884313) NITRITE (test code = Negative Negative 4480231546) LEUK SADIQ (test code = Negative Negative 9905026519) RBC/HPF (test code = See_Comment [Autom ated message] [id number]) The system [employer] generated this result transmitted ref erence range: 0 - 3 HP F. The reference range was not used to int erpret this result as normal/abnormal . WBC/HPF (test code = See_Comment [Autom ated message] [id number]) The system [employer] generated this result transmitted ref erence range: 0 - 5 HP F. The reference range was not used to int erpret this result as normal/abnormal . BACTERIA (test code = Negative Negative [id number]) MUCOUS (test code = Slight Negative LPF A 6545371678) SQ EPITH (test code = <1 HPF [id number]) Lab Interpretation (test Abnormal code = 44044-1) [facility] Test Item Value Reference Range Interpretation Comments APPEARANCE (test code = Clear Clear [id number]) COLOR (test code = Yellow Yellow 7273995926) PH (test code = 4.8-8.0 6955410832) SP GRAVITY (test code = 1.003-1.030 3700310652) GLU U QUAL (test code = Normal Normal 1401415710) BLOOD (test code = Negative Negative 9495744722) KETONES (test code = Negative Negative 1716805491) PROTEIN (test code = Negative Negative 2887-8) UROBILIN (test code = Normal Normal 6598496195) BILIRUBIN (test code = Negative Negative 4932627888) NITRITE (test code = Negative Negative 9365799867) LEUK SADIQ (test code = Negative Negative 2923025778) RBC/HPF (test code = See_Comment [Autom ated message] 6419465255) The system [employer] generated this result transmitted ref erence range: 0 - 3 HP F. The reference range was not used to int erpret this result as normal/abnormal . WBC/HPF (test code = See_Comment [Autom ated message] 8820520886) The system [employer] generated this result transmitted ref erence range: 0 - 5 HP F. The reference range was not used to int erpret this result as normal/abnormal . BACTERIA (test code = Negative Negative 2046889590) MUCOUS (test code = Slight Negative LPF A 6776476532) SQ EPITH (test code = <1 HPF 6168675134) Lab Interpretation (test Abnormal code = 53214-9) [facility] [id number] [facility]:00:00 Test Item Value Reference Range Interpretation [...] code = 1015) 287 K/UL CBC W/AUTO [id number] 00:00:00 Test Item Value Reference Range Interpretation [...] code = 1015) 287 K/UL CBC W/AUTO [id number] 00:00:00 Test Item Value Reference Range Interpretation [...] code = 1015) 287 K/UL COMPREHENSIVE METABOLIC [id number] 00:00:00 Test Item Value Reference Range Interpretation Comments GLUCOSE (test code = 2217) 84 MG/DL BUN (test code = 2208) 16 MG/DL CREATININE (test code = 2214) 1.03 MG/DL eGFR AMER. (test code 94 ML/MIN/1.73 = 13434) eGFR NON- AMER. (test 81 ML/MIN/1.73 code = 32739) CALC BUN/CREAT (test code = 16 RATIO [...] code = 2219) 31 U/L COMPREHENSIVE METABOLIC [id number] 00:00:00 Test Item Value Reference Range Interpretation Comments GLUCOSE (test code = 2217) 84 MG/DL BUN (test code = 2208) 16 MG/DL CREATININE (test code = 2214) 1.03 MG/DL eGFR AMER. (test code 94 ML/MIN/1.73 = 43168) eGFR NON- AMER. (test 81 ML/MIN/1.73 code = 74416) CALC BUN/CREAT (test code = 16 RATIO [...] A/G RATIO (test code = 1.5 RATIO 2233) BILIRUBIN, TOTAL (test code = 0.3 MG/DL 2206) ALKALINE PHOSPHATASE (test 122 U/L code = 2204) AST (test code = 2218) 20 U/L ALT (test code = 2219) 31 U/L HEMOGLOBIN [id number] 00:00:00 Test Item Value Reference Range Interpretation Comments HEMOGLOBIN A1c (test code = 68297) 5.9 % HEMOGLOBIN [id number] 00:00:00 Test Item Value Reference Range Interpretation Comments HEMOGLOBIN A1c (test code = 82959) 5.9 % HEMOGLOBIN [id number] 00:00:00 Test Item Value Reference Range Interpretation Comments HEMOGLOBIN A1c (test code = 02817) 5.9 % LIPID [id number] 00:00:00 Test Item Value Reference Range Interpretation Comments CHOLESTEROL (test code = 2210) 281 MG/DL TRIGLYCERIDES (test code = 2232) 352 MG/DL HDL CHOLESTEROL (test code = 2220) 49 MG/DL CALC LDL CHOL (test code = 2237) 162 MG/DL RISK RATIO LDL/HDL (test code = 3.30 RATIO 2238) LIPID [id number] 00:00:00 Test Item Value Reference Range Interpretation Comments CHOLESTEROL (test code = 2210) 281 MG/DL TRIGLYCERIDES (test code = 2232) 352 MG/DL HDL CHOLESTEROL (test code = 2220) 49 MG/DL CALC LDL CHOL (test code = 2237) 162 MG/DL RISK RATIO LDL/HDL (test code = 3.30 RATIO 2238) CBC W/AUTO [id number] 00:00:00 Test Item Value Reference Range Interpretation [...] code = 1015) 287 K/UL CBC W/AUTO [id number] 00:00:00 Test Item Value Reference Range Interpretation [...] code = 1015) 287 K/UL CBC W/AUTO [id number] 00:00:00 Test Item Value Reference Range Interpretation [...] code = 1015) 287 K/UL COMPREHENSIVE METABOLIC [id number] 00:00:00 Test Item Value Reference Range Interpretation Comments GLUCOSE (test code = 2217) 84 MG/DL BUN (test code = 2208) 16 MG/DL CREATININE (test code = 2214) 1.03 MG/DL eGFR AMER. (test code 94 ML/MIN/1.73 = 24590) eGFR NON- AMER. (test 81 ML/MIN/1.73 code = 89592) CALC BUN/CREAT (test code = 16 RATIO [...] BILIRUBIN, TOTAL (test code = 0.3 MG/DL 220) ALKALINE PHOSPHATASE (test 122 U/L code = 2204) AST (test code = 2218) 20 U/L ALT (test code = 2219) 31 U/L COMPREHENSIVE METABOLIC [id number] 00:00:00 Test Item Value Reference Range Interpretation Comments GLUCOSE (test code = 2217) 84 MG/DL BUN (test code = 2208) 16 MG/DL CREATININE (test code = 2214) 1.03 MG/DL eGFR AMER. (test code 94 ML/MIN/1.73 = 49118) eGFR NON- AMER. (test 81 ML/MIN/1.73 code = 01180) CALC BUN/CREAT (test code = 16 RATIO [...] (test code = 2219) 31 U/L HEMOGLOBIN [id number] 00:00:00 Test Item Value Reference Range Interpretation Comments HEMOGLOBIN A1c (test code = 36572) 5.9 % HEMOGLOBIN [id number] 00:00:00 Test Item Value Reference Range Interpretation Comments HEMOGLOBIN A1c (test code = 76813) 5.9 % HEMOGLOBIN [id number] 00:00:00 Test Item Value Reference Range Interpretation Comments HEMOGLOBIN A1c (test code = 34125) 5.9 % LIPID [id number] 00:00:00 Test Item Value Reference Range Interpretation Comments CHOLESTEROL (test code = 2210) 281 MG/DL TRIGLYCERIDES (test code = 2232) 352 MG/DL HDL CHOLESTEROL (test code = 2220) 49 MG/DL CALC LDL CHOL (test code = 2237) 162 MG/DL RISK RATIO LDL/HDL (test code = 3.30 RATIO 2238) LIPID [id number] 00:00:00 Test Item Value Reference Range Interpretation Comments CHOLESTEROL (test code = 2210) 281 MG/DL TRIGLYCERIDES (test code = 2232) 352 MG/DL HDL CHOLESTEROL (test code = 2220) 49 MG/DL CALC LDL CHOL (test code = 2237) 162 MG/DL RISK RATIO LDL/HDL (test code = 3.30 RATIO 2238) CBC W/AUTO [id number] 00:00:00 Test Item Value Reference Range Interpretation [...] code = 1015) 287 K/UL CBC W/AUTO [id number] 00:00:00 Test Item Value Reference Range Interpretation [...] code = 1015) 287 K/UL CBC W/AUTO [id number] 00:00:00 Test Item Value Reference Range Interpretation [...] code = 1015) 287 K/UL CBC W/AUTO [id number] 00:00:00 Test Item Value Reference Range Interpretation [...] code = 1015) 287 K/UL COMPREHENSIVE METABOLIC [id number] 00:00:00 Test Item Value Reference Range Interpretation Comments GLUCOSE (test code = 2217) 84 MG/DL BUN (test code = 2208) 16 MG/DL CREATININE (test code = 2214) 1.03 MG/DL eGFR AMER. (test code 94 ML/MIN/1.73 = 49242) eGFR NON- AMER. (test 81 ML/MIN/1.73 code = 57042) CALC BUN/CREAT (test code = 16 RATIO [...] code = 2219) 31 U/L COMPREHENSIVE METABOLIC [id number] 00:00:00 Test Item Value Reference Range Interpretation Comments GLUCOSE (test code = 2217) 84 MG/DL BUN (test code = 2208) 16 MG/DL CREATININE (test code = 2214) 1.03 MG/DL eGFR AMER. (test code 94 ML/MIN/1.73 = 50971) eGFR NON- AMER. (test 81 ML/MIN/1.73 code = 55094) CALC BUN/CREAT (test code = 16 RATIO [...] CALC GLOBULIN (test code = 3.1 G/DL 224) CALC A/G RATIO (test code = 1.5 RATIO 2234) BILIRUBIN, TOTAL (test code = 0.3 MG/DL 2206) ALKALINE PHOSPHATASE (test 122 U/L code = 2204) AST (test code = 2218) 20 U/L ALT (test code = 2219) 31 U/L HEMOGLOBIN [id number] 00:00:00 Test Item Value Reference Range Interpretation Comments HEMOGLOBIN A1c (test code = 35635) 5.9 % HEMOGLOBIN [id number] 00:00:00 Test Item Value Reference Range Interpretation Comments HEMOGLOBIN A1c (test code = 55661) 5.9 % HEMOGLOBIN [id number] 00:00:00 Test Item Value Reference Range Interpretation Comments HEMOGLOBIN A1c (test code = 56391) 5.9 % LIPID [id number] 00:00:00 Test Item Value Reference Range Interpretation Comments CHOLESTEROL (test code = 2210) 281 MG/DL TRIGLYCERIDES (test code = 2232) 352 MG/DL HDL CHOLESTEROL (test code = 2220) 49 MG/DL CALC LDL CHOL (test code = 2237) 162 MG/DL RISK RATIO LDL/HDL (test code = 3.30 RATIO 2238) LIPID [id number] 00:00:00 Test Item Value Reference Range Interpretation Comments CHOLESTEROL (test code = 2210) 281 MG/DL TRIGLYCERIDES (test code = 2232) 352 MG/DL HDL CHOLESTEROL (test code = 2220) 49 MG/DL CALC LDL CHOL (test code = 2237) 162 MG/DL RISK RATIO LDL/HDL (test code = 3.30 RATIO 2238) CBC W/AUTO [id number] 00:00:00 Test Item Value Reference Range Interpretation [...] code = 1015) 287 K/UL CBC W/AUTO [id number] 00:00:00 Test Item Value Reference Range Interpretation [...] code = 1015) 287 K/UL COMPREHENSIVE METABOLIC [id number] 00:00:00 Test Item Value Reference Range Interpretation Comments GLUCOSE (test code = 2217) 84 MG/DL BUN (test code = 2208) 16 MG/DL CREATININE (test code = 2214) 1.03 MG/DL eGFR AMER. (test code 94 ML/MIN/1.73 = 52886) eGFR NON- AMER. (test 81 ML/MIN/1.73 code = 89022) CALC BUN/CREAT (test code = 16 RATIO [...] code = 2219) 31 U/L COMPREHENSIVE METABOLIC [id number] 00:00:00 Test Item Value Reference Range Interpretation Comments GLUCOSE (test code = 2217) 84 MG/DL BUN (test code = 2208) 16 MG/DL CREATININE (test code = 2214) 1.03 MG/DL eGFR AMER. (test code 94 ML/MIN/1.73 = 15804) eGFR NON- AMER. (test 81 ML/MIN/1.73 code = 90736) CALC BUN/CREAT (test code = 16 RATIO [...] (test code = 2219) 31 U/L HEMOGLOBIN [id number] 00:00:00 Test Item Value Reference Range Interpretation Comments HEMOGLOBIN A1c (test code = 86291) 5.9 % HEMOGLOBIN [id number] 00:00:00 Test Item Value Reference Range Interpretation Comments HEMOGLOBIN A1c (test code = 12248) 5.9 % HEMOGLOBIN [id number] 00:00:00 Test Item Value Reference Range Interpretation Comments HEMOGLOBIN A1c (test code = 61322) 5.9 % LIPID [id number] 00:00:00 Test Item Value Reference Range Interpretation Comments CHOLESTEROL (test code = 2210) 281 MG/DL TRIGLYCERIDES (test code = 2232) 352 MG/DL HDL CHOLESTEROL (test code = 2220) 49 MG/DL CALC LDL CHOL (test code = 2237) 162 MG/DL RISK RATIO LDL/HDL (test code = 3.30 RATIO 2238) LIPID [id number] 00:00:00 Test Item Value Reference Range Interpretation Comments CHOLESTEROL (test code = 2210) 281 MG/DL TRIGLYCERIDES (test code = 2232) 352 MG/DL HDL CHOLESTEROL (test code = 2220) 49 MG/DL CALC LDL CHOL (test code = 2237) 162 MG/DL RISK RATIO LDL/HDL (test code = 3.30 RATIO 2238) COMPREHENSIVE METABOLIC [id number] 00:00:00 Test Item Value Reference Range Interpretation Comments GLUCOSE (test code = 2217) 102 MG/DL BUN (test code = 2208) 18 MG/DL CREATININE (test code = 2214) 1.10 MG/DL eGFR AMER. (test code 88 ML/MIN/1.73 = 13057) eGFR NON- AMER. (test 76 ML/MIN/1.73 code = 80480) CALC BUN/CREAT (test code = 16 RATIO [...] code = 2219) 32 U/L COMPREHENSIVE METABOLIC [id number] 00:00:00 Test Item Value Reference Range Interpretation Comments GLUCOSE (test code = 221) 102 MG/DL BUN (test code = 2208) 18 MG/DL CREATININE (test code = 2214) 1.10 MG/DL eGFR AMER. (test code 88 ML/MIN/1.73 = 25255) eGFR NON- AMER. (test 76 ML/MIN/1.73 code = 68743) CALC BUN/CREAT (test code = 16 RATIO [...] (test code = 2219) 32 U/L LIPID [id number] 00:00:00 Test Item Value Reference Range Interpretation Comments CHOLESTEROL (test code = 2210) 262 MG/DL TRIGLYCERIDES (test code = 2232) 189 MG/DL HDL CHOLESTEROL (test code = 2220) 58 MG/DL CALC LDL CHOL (test code = 2237) 166 MG/DL RISK RATIO LDL/HDL (test code = 2.87 RATIO 2238) LIPID [id number] 00:00:00 Test Item Value Reference Range Interpretation Comments CHOLESTEROL (test code = 2210) 262 MG/DL TRIGLYCERIDES (test code = 2232) 189 MG/DL HDL CHOLESTEROL (test code = 2220) 58 MG/DL CALC LDL CHOL (test code = 2237) 166 MG/DL RISK RATIO LDL/HDL (test code = 2.87 RATIO 2238) COMPREHENSIVE METABOLIC [id number] 00:00:00 Test Item Value Reference Range Interpretation Comments GLUCOSE (test code = 2217) 102 MG/DL BUN (test code = 2208) 18 MG/DL CREATININE (test code = 2214) 1.10 MG/DL eGFR AMER. (test code 88 ML/MIN/1.73 = 86684) eGFR NON- AMER. (test 76 ML/MIN/1.73 code = 55535) CALC BUN/CREAT (test code = 16 RATIO 2235) SODIUM (test code = 2231) 138 MEQ/L POTASSIUM (test code = 2228) 4.3 MEQ/L CHLORIDE (test code = 2215) 101 MEQ/L CARBON DIOXIDE (test code = 27 MEQ/L 6) CALCIUM (test code = 2209) 9.5 MG/DL [...] code = 2219) 32 U/L COMPREHENSIVE METABOLIC [id number] 00:00:00 Test Item Value Reference Range Interpretation Comments GLUCOSE (test code = 2217) 102 MG/DL BUN (test code = 2208) 18 MG/DL CREATININE (test code = 2214) 1.10 MG/DL eGFR AMER. (test code 88 ML/MIN/1.73 = 39555) eGFR NON- AMER. (test 76 ML/MIN/1.73 code = 73060) CALC BUN/CREAT (test code = 16 RATIO [...] (test code = 2219) 32 U/L LIPID [id number] 00:00:00 Test Item Value Reference Range Interpretation Comments CHOLESTEROL (test code = 2210) 262 MG/DL TRIGLYCERIDES (test code = 2232) 189 MG/DL HDL CHOLESTEROL (test code = 2220) 58 MG/DL CALC LDL CHOL (test code = 2237) 166 MG/DL RISK RATIO LDL/HDL (test code = 2.87 RATIO 2238) LIPID [id number] 00:00:00 Test Item Value Reference Range Interpretation Comments CHOLESTEROL (test code = 2210) 262 MG/DL TRIGLYCERIDES (test code = 2232) 189 MG/DL HDL CHOLESTEROL (test code = 2220) 58 MG/DL CALC LDL CHOL (test code = 2237) 166 MG/DL RISK RATIO LDL/HDL (test code = 2.87 RATIO 2238) COMPREHENSIVE METABOLIC [id number] 00:00:00 Test Item Value Reference Range Interpretation Comments GLUCOSE (test code = 2217) 102 MG/DL BUN (test code = 2208) 18 MG/DL CREATININE (test code = 2214) 1.10 MG/DL eGFR AMER. (test code 88 ML/MIN/1.73 = 67570) eGFR NON- AMER. (test 76 ML/MIN/1.73 code = 74007) CALC BUN/CREAT (test code = 16 RATIO [...] code = 2219) 32 U/L COMPREHENSIVE METABOLIC [id number] 00:00:00 Test Item Value Reference Range Interpretation Comments GLUCOSE (test code = 2217) 102 MG/DL BUN (test code = 2208) 18 MG/DL CREATININE (test code = 2214) 1.10 MG/DL eGFR AMER. (test code 88 ML/MIN/1.73 = 64114) eGFR NON- AMER. (test 76 ML/MIN/1.73 code = 25908) CALC BUN/CREAT (test code = 16 RATIO [...] (test code = 2219) 32 U/L LIPID [id number] 00:00:00 Test Item Value Reference Range Interpretation Comments CHOLESTEROL (test code = 2210) 262 MG/DL TRIGLYCERIDES (test code = 2232) 189 MG/DL HDL CHOLESTEROL (test code = 2220) 58 MG/DL CALC LDL CHOL (test code = 2237) 166 MG/DL RISK RATIO LDL/HDL (test code = 2.87 RATIO 2238) LIPID [id number] 00:00:00 Test Item Value Reference Range Interpretation Comments CHOLESTEROL (test code = 2210) 262 MG/DL TRIGLYCERIDES (test code = 2232) 189 MG/DL HDL CHOLESTEROL (test code = 2220) 58 MG/DL CALC LDL CHOL (test code = 2237) 166 MG/DL RISK RATIO LDL/HDL (test code = 2.87 RATIO 2238) COMPREHENSIVE METABOLIC [id number] 00:00:00 Test Item Value Reference Range Interpretation Comments GLUCOSE (test code = 2217) 102 MG/DL BUN (test code = 2208) 18 MG/DL CREATININE (test code = 2214) 1.10 MG/DL eGFR AMER. (test code 88 ML/MIN/1.73 = 71634) eGFR NON- AMER. (test 76 ML/MIN/1.73 code = 92221) CALC BUN/CREAT (test code = 16 RATIO [...] code = 2219) 32 U/L COMPREHENSIVE METABOLIC [id number] 00:00:00 Test Item Value Reference Range Interpretation Comments GLUCOSE (test code = 2217) 102 MG/DL BUN (test code = 2208) 18 MG/DL CREATININE (test code = 2214) 1.10 MG/DL eGFR AMER. (test code 88 ML/MIN/1.73 = 32401) eGFR NON- AMER. (test 76 ML/MIN/1.73 code = 40637) CALC BUN/CREAT (test code = 16 RATIO [...] A/G RATIO (test code = 1.3 RATIO 223) BILIRUBIN, TOTAL (test code = 0.3 MG/DL 2206) ALKALINE PHOSPHATASE (test 110 U/L code = 2204) AST (test code = 2218) 22 U/L ALT (test code = 2219) 32 U/L LIPID [id number] 00:00:00 Test Item Value Reference Range Interpretation Comments CHOLESTEROL (test code = 2210) 262 MG/DL TRIGLYCERIDES (test code = 2232) 189 MG/DL HDL CHOLESTEROL (test code = 2220) 58 MG/DL CALC LDL CHOL (test code = 2237) 166 MG/DL RISK RATIO LDL/HDL (test code = 2.87 RATIO 2238) LIPID [id number] 00:00:00 Test Item Value Reference Range Interpretation Comments CHOLESTEROL (test code = 2210) 262 MG/DL TRIGLYCERIDES (test code = 2232) 189 MG/DL HDL CHOLESTEROL (test code = 2220) 58 MG/DL CALC LDL CHOL (test code = 2237) 166 MG/DL RISK RATIO LDL/HDL (test code = 2.87 RATIO 2238) COMPREHENSIVE METABOLIC [id number] 00:00:00 Test Item Value Reference Range Interpretation Comments GLUCOSE (test code = 2217) 79 MG/DL BUN (test code = 2208) 14 MG/DL CREATININE (test code = 2214) 0.95 MG/DL eGFR AMER. (test code 105 ML/MIN/1.73 = 99434) eGFR NON- AMER. (test 91 ML/MIN/1.73 code = 54063) CALC BUN/CREAT (test code = 15 RATIO 2235) SODIUM (test code = 2231) 143 MEQ/L POTASSIUM (test code = 2228) 4.5 MEQ/L CHLORIDE (test code = 2215) 101 MEQ/L CARBON DIOXIDE (test code = 27 MEQ/L 220) CALCIUM (test code = 2209) 9.6 MG/DL PROTEIN, TOTAL (test code = 7.4 G/DL 222) ALBUMIN (test code = 2201) 4.2 G/DL CALC GLOBULIN (test code = 3.2 G/DL 2240) CALC A/G RATIO (test code = 1.3 RATIO 2234) BILIRUBIN, TOTAL (test code = 0.4 MG/DL 2206) ALKALINE PHOSPHATASE (test 114 U/L code = 2204) AST (test code = 2218) 14 U/L ALT (test code = 2219) 23 U/L COMPREHENSIVE METABOLIC [id number] 00:00:00 Test Item Value Reference Range Interpretation Comments GLUCOSE (test code = 2217) 79 MG/DL BUN (test code = 2208) 14 MG/DL CREATININE (test code = 2214) 0.95 MG/DL eGFR AMER. (test code 105 ML/MIN/1.73 = 89860) eGFR NON- AMER. (test 91 ML/MIN/1.73 code = 79762) CALC BUN/CREAT (test code = 15 RATIO [...] (test code = 2219) 23 U/L LIPID [id number] 00:00:00 Test Item Value Reference Range Interpretation Comments CHOLESTEROL (test code = 2210) 242 MG/DL TRIGLYCERIDES (test code = 2232) 233 MG/DL HDL CHOLESTEROL (test code = 2220) 52 MG/DL CALC LDL CHOL (test code = 2237) 143 MG/DL RISK RATIO LDL/HDL (test code = 2.76 RATIO 2238) LIPID [id number] 00:00:00 Test Item Value Reference Range Interpretation Comments CHOLESTEROL (test code = 2210) 242 MG/DL TRIGLYCERIDES (test code = 2232) 233 MG/DL HDL CHOLESTEROL (test code = 2220) 52 MG/DL CALC LDL CHOL (test code = 2237) 143 MG/DL RISK RATIO LDL/HDL (test code = 2.76 RATIO 2238) COMPREHENSIVE METABOLIC [id number] 00:00:00 Test Item Value Reference Range Interpretation Comments GLUCOSE (test code = 2217) 79 MG/DL BUN (test code = 2208) 14 MG/DL CREATININE (test code = 2214) 0.95 MG/DL eGFR AMER. (test code 105 ML/MIN/1.73 = 79642) eGFR NON- AMER. (test 91 ML/MIN/1.73 code = 15985) CALC BUN/CREAT (test code = 15 RATIO [...] code = 2219) 23 U/L COMPREHENSIVE METABOLIC [id number] 00:00:00 Test Item Value Reference Range Interpretation Comments GLUCOSE (test code = 2217) 79 MG/DL BUN (test code = 2208) 14 MG/DL CREATININE (test code = 2214) 0.95 MG/DL eGFR AMER. (test code 105 ML/MIN/1.73 = 55467) eGFR NON- AMER. (test 91 ML/MIN/1.73 code = 26975) CALC BUN/CREAT (test code = 15 RATIO [...] CALC GLOBULIN (test code = 3.2 G/DL 224) CALC A/G RATIO (test code = 1.3 RATIO 2234) BILIRUBIN, TOTAL (test code = 0.4 MG/DL 2206) ALKALINE PHOSPHATASE (test 114 U/L code = 2204) AST (test code = 2218) 14 U/L ALT (test code = 2219) 23 U/L LIPID [id number] 00:00:00 Test Item Value Reference Range Interpretation Comments CHOLESTEROL (test code = 2210) 242 MG/DL TRIGLYCERIDES (test code = 2232) 233 MG/DL HDL CHOLESTEROL (test code = 2220) 52 MG/DL CALC LDL CHOL (test code = 2237) 143 MG/DL RISK RATIO LDL/HDL (test code = 2.76 RATIO 2238) LIPID [id number] 00:00:00 Test Item Value Reference Range Interpretation Comments CHOLESTEROL (test code = 2210) 242 MG/DL TRIGLYCERIDES (test code = 2232) 233 MG/DL HDL CHOLESTEROL (test code = 2220) 52 MG/DL CALC LDL CHOL (test code = 2237) 143 MG/DL RISK RATIO LDL/HDL (test code = 2.76 RATIO 2238) COMPREHENSIVE METABOLIC [id number] 00:00:00 Test Item Value Reference Range Interpretation Comments GLUCOSE (test code = 2217) 79 MG/DL BUN (test code = 2208) 14 MG/DL CREATININE (test code = 2214) 0.95 MG/DL eGFR AMER. (test code 105 ML/MIN/1.73 = 68051) eGFR NON- AMER. (test 91 ML/MIN/1.73 code = 72846) CALC BUN/CREAT (test code = 15 RATIO [...] code = 2219) 23 U/L COMPREHENSIVE METABOLIC [id number] 00:00:00 Test Item Value Reference Range Interpretation Comments GLUCOSE (test code = 2217) 79 MG/DL BUN (test code = 2208) 14 MG/DL CREATININE (test code = 2214) 0.95 MG/DL eGFR AMER. (test code 105 ML/MIN/1.73 = 59550) eGFR NON- AMER. (test 91 ML/MIN/1.73 code = 92331) CALC BUN/CREAT (test code = 15 RATIO [...] code = 2219) 23 U/L COMPREHENSIVE METABOLIC [id number] 00:00:00 Test Item Value Reference Range Interpretation Comments GLUCOSE (test code = 2217) 79 MG/DL BUN (test code = 2208) 14 MG/DL CREATININE (test code = 2214) 0.95 MG/DL eGFR AMER. (test code 105 ML/MIN/1.73 = 41064) eGFR NON- AMER. (test 91 ML/MIN/1.73 code = 64147) CALC BUN/CREAT (test code = 15 RATIO [...] CALC GLOBULIN (test code = 3.2 G/DL 224) CALC A/G RATIO (test code = 1.3 RATIO 2234) BILIRUBIN, TOTAL (test code = 0.4 MG/DL 2206) ALKALINE PHOSPHATASE (test 114 U/L code = 2204) AST (test code = 2218) 14 U/L ALT (test code = 2219) 23 U/L LIPID [id number] 00:00:00 Test Item Value Reference Range Interpretation Comments CHOLESTEROL (test code = 2210) 242 MG/DL TRIGLYCERIDES (test code = 2232) 233 MG/DL HDL CHOLESTEROL (test code = 2220) 52 MG/DL CALC LDL CHOL (test code = 2237) 143 MG/DL RISK RATIO LDL/HDL (test code = 2.76 RATIO 2238) COMPREHENSIVE METABOLIC [id number] 00:00:00 Test Item Value Reference Range Interpretation Comments GLUCOSE (test code = 2217) 79 MG/DL BUN (test code = 2208) 14 MG/DL CREATININE (test code = 2214) 0.95 MG/DL eGFR AMER. (test code 105 ML/MIN/1.73 = 50054) eGFR NON- AMER. (test 91 ML/MIN/1.73 code = 48412) CALC BUN/CREAT (test code = 15 RATIO [...] CALC GLOBULIN (test code = 3.2 G/DL 224) CALC A/G RATIO (test code = 1.3 RATIO 2234) BILIRUBIN, TOTAL (test code = 0.4 MG/DL 2206) ALKALINE PHOSPHATASE (test 114 U/L code = 2204) AST (test code = 2218) 14 U/L ALT (test code = 2219) 23 U/L LIPID [id number] 00:00:00 Test Item Value Reference Range Interpretation Comments CHOLESTEROL (test code = 2210) 242 MG/DL TRIGLYCERIDES (test code = 2232) 233 MG/DL HDL CHOLESTEROL (test code = 2220) 52 MG/DL CALC LDL CHOL (test code = 2237) 143 MG/DL RISK RATIO LDL/HDL (test code = 2.76 RATIO 2238) LIPID [id number] 00:00:00 Test Item Value Reference Range Interpretation Comments CHOLESTEROL (test code = 2210) 242 MG/DL TRIGLYCERIDES (test code = 2232) 233 MG/DL HDL CHOLESTEROL (test code = 2220) 52 MG/DL CALC LDL CHOL (test code = 2237) 143 MG/DL RISK RATIO LDL/HDL (test code = 2.76 RATIO 2238) LIPID [id number] 00:00:00 Test Item Value Reference Range Interpretation Comments CHOLESTEROL (test code = 2210) 242 MG/DL TRIGLYCERIDES (test code = 2232) 233 MG/DL HDL CHOLESTEROL (test code = 2220) 52 MG/DL CALC LDL CHOL (test code = 2237) 143 MG/DL RISK RATIO LDL/HDL (test code = 2.76 RATIO 2238) COMPREHENSIVE METABOLIC [id number] 00:00:00 Test Item Value Reference Range Interpretation Comments GLUCOSE (test code = 2217) 108 MG/DL BUN (test code = 2208) 16 MG/DL CREATININE (test code = 2214) 0.95 MG/DL eGFR AMER. (test code 107 ML/MIN/1.73 = 67008) eGFR NON- AMER. (test 92 ML/MIN/1.73 code = 39041) CALCULATED BUN/CREAT (test 17 RATIO code = [...] code = 2219) 28 U/L COMPREHENSIVE METABOLIC [id number] 00:00:00 Test Item Value Reference Range Interpretation Comments GLUCOSE (test code = 2217) 108 MG/DL BUN (test code = 2208) 16 MG/DL CREATININE (test code = 2214) 0.95 MG/DL eGFR AMER. (test code 107 ML/MIN/1.73 = 64086) eGFR NON- AMER. (test 92 ML/MIN/1.73 code = 37545) CALCULATED BUN/CREAT (test 17 RATIO code = [...] (test code = 2219) 28 U/L LIPID [id number] 00:00:00 Test Item Value Reference Range Interpretation Comments CHOLESTEROL (test code = 2210) 249 MG/DL TRIGLYCERIDES (test code = 2232) 156 MG/DL HDL CHOLESTEROL (test code = 2220) 55 MG/DL CALCULATED LDL CHOL (test code = 163 MG/DL 2237) RISK RATIO LDL/HDL (test code = 2.96 RATIO 2238) LIPID [id number] 00:00:00 Test Item Value Reference Range Interpretation Comments CHOLESTEROL (test code = 2210) 249 MG/DL TRIGLYCERIDES (test code = 2232) 156 MG/DL HDL CHOLESTEROL (test code = 2220) 55 MG/DL CALCULATED LDL CHOL (test code = 163 MG/DL 2237) RISK RATIO LDL/HDL (test code = 2.96 RATIO 2238) CBC W/AUTO [id number] 00:00:00 Test Item Value Reference Range Interpretation [...] code = 1015) 276 K/UL CBC W/AUTO [id number] 00:00:00 Test Item Value Reference Range Interpretation [...] code = 1015) 276 K/UL CBC W/AUTO [id number] 00:00:00 Test Item Value Reference Range Interpretation [...] (test code = 1015) 276 K/UL HEMOGLOBIN [id number] 00:00:00 Test Item Value Reference Range Interpretation Comments HEMOGLOBIN A1c (test code = 93924) 5.9 % HEMOGLOBIN [id number] 00:00:00 Test Item Value Reference Range Interpretation Comments HEMOGLOBIN A1c (test code = 61197) 5.9 % HEMOGLOBIN [id number] 00:00:00 Test Item Value Reference Range Interpretation Comments HEMOGLOBIN A1c (test code = 74103) 5.9 % [id number] 00:00:00 Test Item Value Reference Range Interpretation Comments TSH (test code = 2821) 2.1 UIU/ML [id number] 00:00:00 Test Item Value Reference Range Interpretation Comments TSH (test code = 2821) 2.1 UIU/ML [id number] 00:00:00 Test Item Value Reference Range Interpretation Comments TSH (test code = 2821) 2.1 UIU/ML COMPREHENSIVE METABOLIC [id number] 00:00:00 Test Item Value Reference Range Interpretation Comments GLUCOSE (test code = 2217) 108 MG/DL BUN (test code = 2208) 16 MG/DL CREATININE (test code = 2214) 0.95 MG/DL eGFR AMER. (test code 107 ML/MIN/1.73 = 58409) eGFR NON- AMER. (test 92 ML/MIN/1.73 code = 98945) CALCULATED BUN/CREAT (test 17 RATIO code = [...] code = 2219) 28 U/L COMPREHENSIVE METABOLIC [id number] 00:00:00 Test Item Value Reference Range Interpretation Comments GLUCOSE (test code = 2217) 108 MG/DL BUN (test code = 2208) 16 MG/DL CREATININE (test code = 2214) 0.95 MG/DL eGFR AMER. (test code 107 ML/MIN/1.73 = 84967) eGFR NON- AMER. (test 92 ML/MIN/1.73 code = 91993) CALCULATED BUN/CREAT (test 17 RATIO code = 2235) SODIUM (test code = 2231) 141 MEQ/L POTASSIUM (test code = 2228) 3.8 MEQ/L CHLORIDE (test code = 2215) 101 MEQ/L CARBON DIOXIDE (test code = 25 MEQ/L 2206) CALCIUM (test code = 2209) 9.1 MG/DL [...] (test code = 2219) 28 U/L LIPID [id number] 00:00:00 Test Item Value Reference Range Interpretation Comments CHOLESTEROL (test code = 2210) 249 MG/DL TRIGLYCERIDES (test code = 2232) 156 MG/DL HDL CHOLESTEROL (test code = 2220) 55 MG/DL CALCULATED LDL CHOL (test code = 163 MG/DL 2237) RISK RATIO LDL/HDL (test code = 2.96 RATIO 2238) LIPID [id number] 00:00:00 Test Item Value Reference Range Interpretation Comments CHOLESTEROL (test code = 2210) 249 MG/DL TRIGLYCERIDES (test code = 2232) 156 MG/DL HDL CHOLESTEROL (test code = 2220) 55 MG/DL CALCULATED LDL CHOL (test code = 163 MG/DL 2237) RISK RATIO LDL/HDL (test code = 2.96 RATIO 2238) CBC W/AUTO [id number] 00:00:00 Test Item Value Reference Range Interpretation [...] code = 1015) 276 K/UL CBC W/AUTO [id number] 00:00:00 Test Item Value Reference Range Interpretation [...] code = 1015) 276 K/UL CBC W/AUTO [id number] 00:00:00 Test Item Value Reference Range Interpretation [...] (test code = 1015) 276 K/UL HEMOGLOBIN [id number] 00:00:00 Test Item Value Reference Range Interpretation Comments HEMOGLOBIN A1c (test code = 58725) 5.9 % HEMOGLOBIN [id number] 00:00:00 Test Item Value Reference Range Interpretation Comments HEMOGLOBIN A1c (test code = 01309) 5.9 % HEMOGLOBIN [id number] 00:00:00 Test Item Value Reference Range Interpretation Comments HEMOGLOBIN A1c (test code = 98398) 5.9 % [id number] 00:00:00 Test Item Value Reference Range Interpretation Comments TSH (test code = 2821) 2.1 UIU/ML [id number] 00:00:00 Test Item Value Reference Range Interpretation Comments TSH (test code = 2821) 2.1 UIU/ML [id number] 00:00:00 Test Item Value Reference Range Interpretation Comments TSH (test code = 2821) 2.1 UIU/ML COMPREHENSIVE METABOLIC [id number] 00:00:00 Test Item Value Reference Range Interpretation Comments GLUCOSE (test code = 2217) 108 MG/DL BUN (test code = 2208) 16 MG/DL CREATININE (test code = 2214) 0.95 MG/DL eGFR AMER. (test code 107 ML/MIN/1.73 = 85100) eGFR NON- AMER. (test 92 ML/MIN/1.73 code = 23465) CALCULATED BUN/CREAT (test 17 RATIO code = [...] code = 2219) 28 U/L COMPREHENSIVE METABOLIC [id number] 00:00:00 Test Item Value Reference Range Interpretation Comments GLUCOSE (test code = 2217) 108 MG/DL BUN (test code = 2208) 16 MG/DL CREATININE (test code = 2214) 0.95 MG/DL eGFR AMER. (test code 107 ML/MIN/1.73 = 83455) eGFR NON- AMER. (test 92 ML/MIN/1.73 code = 07970) CALCULATED BUN/CREAT (test 17 RATIO code = 2235) SODIUM (test code = 2231) 141 MEQ/L POTASSIUM (test code = 2228) 3.8 MEQ/L CHLORIDE (test code = 2215) 101 MEQ/L CARBON DIOXIDE (test code = 25 MEQ/L 2206) CALCIUM (test code = 2209) 9.1 MG/DL [...] (test code = 2219) 28 U/L LIPID [id number] 00:00:00 Test Item Value Reference Range Interpretation Comments CHOLESTEROL (test code = 2210) 249 MG/DL TRIGLYCERIDES (test code = 2232) 156 MG/DL HDL CHOLESTEROL (test code = 2220) 55 MG/DL CALCULATED LDL CHOL (test code = 163 MG/DL 2237) RISK RATIO LDL/HDL (test code = 2.96 RATIO 2238) LIPID [id number] 00:00:00 Test Item Value Reference Range Interpretation Comments CHOLESTEROL (test code = 2210) 249 MG/DL TRIGLYCERIDES (test code = 2232) 156 MG/DL HDL CHOLESTEROL (test code = 2220) 55 MG/DL CALCULATED LDL CHOL (test code = 163 MG/DL 2237) RISK RATIO LDL/HDL (test code = 2.96 RATIO 2238) COMPREHENSIVE METABOLIC [id number] 00:00:00 Test Item Value Reference Range Interpretation Comments GLUCOSE (test code = 2217) 108 MG/DL BUN (test code = 2208) 16 MG/DL CREATININE (test code = 2214) 0.95 MG/DL eGFR AMER. (test code 107 ML/MIN/1.73 = 51114) eGFR NON- AMER. (test 92 ML/MIN/1.73 code = 33386) CALCULATED BUN/CREAT (test 17 RATIO code = [...] code = 2219) 28 U/L CBC W/AUTO [id number] 00:00:00 Test Item Value Reference Range Interpretation [...] code = 1015) 276 K/UL CBC W/AUTO [id number] 00:00:00 Test Item Value Reference Range Interpretation [...] code = 1015) 276 K/UL CBC W/AUTO [id number] 00:00:00 Test Item Value Reference Range Interpretation [...] (test code = 1015) 276 K/UL HEMOGLOBIN [id number] 00:00:00 Test Item Value Reference Range Interpretation Comments HEMOGLOBIN A1c (test code = 34080) 5.9 % HEMOGLOBIN [id number] 00:00:00 Test Item Value Reference Range Interpretation Comments HEMOGLOBIN A1c (test code = 85296) 5.9 % HEMOGLOBIN [id number] 00:00:00 Test Item Value Reference Range Interpretation Comments HEMOGLOBIN A1c (test code = 09857) 5.9 % [id number] 00:00:00 Test Item Value Reference Range Interpretation Comments TSH (test code = 2821) 2.1 UIU/ML [id number] 00:00:00 Test Item Value Reference Range Interpretation Comments TSH (test code = 2821) 2.1 UIU/ML [id number] 00:00:00 Test Item Value Reference Range Interpretation Comments TSH (test code = 2821) 2.1 UIU/ML COMPREHENSIVE METABOLIC [id number] 00:00:00 Test Item Value Reference Range Interpretation Comments GLUCOSE (test code = 2217) 108 MG/DL BUN (test code = 2208) 16 MG/DL CREATININE (test code = 2214) 0.95 MG/DL eGFR AMER. (test code 107 ML/MIN/1.73 = 14039) eGFR NON- AMER. (test 92 ML/MIN/1.73 code = 56638) CALCULATED BUN/CREAT (test 17 RATIO code = [...] ALKALINE PHOSPHATASE (test 90 U/L code = 220) SGOT (AST) (test code = 2218) 17 U/L SGPT (ALT) (test code = 2219) 28 U/L LIPID [id number] 00:00:00 Test Item Value Reference Range Interpretation Comments CHOLESTEROL (test code = 2210) 249 MG/DL TRIGLYCERIDES (test code = 2232) 156 MG/DL HDL CHOLESTEROL (test code = 2220) 55 MG/DL CALCULATED LDL CHOL (test code = 163 MG/DL 2237) RISK RATIO LDL/HDL (test code = 2.96 RATIO 2238) LIPID [id number] 00:00:00 Test Item Value Reference Range Interpretation Comments CHOLESTEROL (test code = 2210) 249 MG/DL TRIGLYCERIDES (test code = 2232) 156 MG/DL HDL CHOLESTEROL (test code = 2220) 55 MG/DL CALCULATED LDL CHOL (test code = 163 MG/DL 2237) RISK RATIO LDL/HDL (test code = 2.96 RATIO 2238) CBC W/AUTO [id number] 00:00:00 Test Item Value Reference Range Interpretation [...] code = 1015) 276 K/UL CBC W/AUTO [id number] 00:00:00 Test Item Value Reference Range Interpretation [...] code = 1015) 276 K/UL CBC W/AUTO [id number] 00:00:00 Test Item Value Reference Range Interpretation [...] (test code = 1015) 276 K/UL HEMOGLOBIN [id number] 00:00:00 Test Item Value Reference Range Interpretation Comments HEMOGLOBIN A1c (test code = 06917) 5.9 % HEMOGLOBIN [id number] 00:00:00 Test Item Value Reference Range Interpretation Comments HEMOGLOBIN A1c (test code = 90498) 5.9 % HEMOGLOBIN [id number] 00:00:00 Test Item Value Reference Range Interpretation Comments HEMOGLOBIN A1c (test code = 17105) 5.9 % [id number] 00:00:00 Test Item Value Reference Range Interpretation Comments TSH (test code = 2821) 2.1 UIU/ML [id number] 00:00:00 Test Item Value Reference Range Interpretation Comments TSH (test code = 2821) 2.1 UIU/ML [id number] 00:00:00 Test Item Value Reference Range Interpretation Comments TSH (test code = 2821) 2.1 UIU/ML
[2023-02-23] MEDS ORDERED: ONDANSETRON 4 MG/2 ML VIAL ONE (23:05)
[2023-02-23] MEDS ORDERED: MORPHINE 4 MG/ML SYR ONE (23:05)
[2023-02-23 23:19] LABS: Protime INR 0.96
[2023-02-23 23:20] LABS: Absolute Lymphocytes (CBC) 3.1 K/uL (0.7-4.9); Hematocrit 48.5 % (39.6-49.0); Lymphocytes % 32.9 % (15.3-44.8); MCV 93.4 fL (80-100); MPV 10.3 fL (7.6-11.3); RBC Red Blood Cell Count 5.19 M/uL (4.33-5.43)
[2023-02-23 23:37] LABS: ALT/SGPT 38 U/L (16-61); AST/SGOT 15 U/L (15-37); Albumin 3.6 g/dL (3.4-5.0); Alkaline Phosphatase 99 U/L (45-117); BUN Blood Urea Nitrogen 21 mg/dL (7-18); Bicarbonate 26 mEq/L (21-32); Bilirubin Total 0.5 mg/dL (0.2-1.0); Glomerular Filtration Rate 69 ml/min (=/>90); Glucose Level 108 mg/dL (74-106); Magnesium 2.1 mg/dL (1.6-2.4); NT PRO-BNP 43 pg/mL (<125); Potassium 3.2 mEq/L (3.5-5.1); Sodium Level 137 mEq/L (136-145); Troponin High Sensitivity 49.1 pg/mL (<58.9)
[2023-02-23 23:38] LABS: Bilirubin Direct < 0.1 mg/dL (0-0.2); Bilirubin Indirect, Calculated ND mg/dL (0.2-0.8)
[2023-02-24] MEDS ORDERED: ASPIRIN 81 MG CHEWABLE TABLET ONE (02:54)
[2023-02-24] MEDS ORDERED: POTASSIUM CL SA 10 MEQ TAB PO ONE ×2 (02:55→09:00)
--- NOTE | 2023-02-24 03:00 | ER ---
Nurse's Notes [facility] Name: Soy Frias Age: 57 yrs Sex: Male : 1965 Arrival Date: 02/23/2023 Time: 22:05 Bed 8 Private MD: Diagnosis: Unstable angina Presentation: 02/23 22:17 Chief complaint: Patient states: "I have really back chest pain and a headache that as6 started about 3 hours ago". Coronavirus screen: At this time, the client does not indicate any symptoms associated with coronavirus-19. Ebola Screen: No symptoms or risks identified at this time. Risk Assessment: Do you want to hurt yourself or someone else? Patient reports no desire to harm self or others. Onset of symptoms was February 23, 2023. 22:17 Method Of Arrival: Ambulatory as6 22:17 Acuity: JANIS 3 as6 22:23 Initial Sepsis Screen: Does the patient meet any 2 criteria? No. Patient's initial as6 sepsis screen is negative. Does the patient have a suspected source of infection? No. Patient's initial sepsis screen is negative. Triage Assessment: 22:23 General: Appears uncomfortable, Behavior is calm, cooperative. Pain: Complains of pain as6 in head and chest. Neuro: Reports headache. Cardiovascular: Reports chest pain. Historical: - Allergies: 22:19 No Known Allergies; as6 - PMHx: 22:19 Hypertension; diabetes mellitus; Hypercholesterolemia; as6 - PSHx: 22:19 None; as6 - Immunization history:: Client reports receiving the Andrew \\T\\ Andrew single-dose vaccine. - Social history:: Smoking status: Patient denies any tobacco usage or history of. - Family history:: not pertinent. Screenin:42 [facility] ED Fall Risk Assessment (Adult) History of falling in the last 3 months, jj7 including since admission No falls in past 3 months (0 pts) Confusion or Disorientation No (0 pts) Intoxicated or Sedated No (0 pts) Impaired Gait No (0 pts) Mobility Assist Device Used No (0 pt) Altered Elimination No (0 pt) Score/Fall Risk Level 0 - 2 = Low Risk Oriented to surroundings, Maintained a safe environment. Abuse screen: Denies threats or abuse. Nutritional screening: No deficits noted. Tuberculosis screening: No symptoms or risk factors identified. Assessment: 22:42 General: Appears in no apparent distress. uncomfortable, Behavior is calm, cooperative, jj7 appropriate for age. Pain: Complains of pain in mid-sternal area and left breast Pain radiates to left breast Pain began 3 hours ago. Cardiovascular: Chest pain is described as severe, Pain is 9 out of 10 on a pain scale. 02/24 03:34 Reassessment: ATTEMPTED REPORT TP M/S. jj7 Vital Signs: 02/23 22:17 Weight 122.47 kg (R); Height 5 ft. 7 in. (R); Pain 9/10; as6 22:20 BP 154 / 99; Pulse 78; Resp 18 S; Temp 98.4(O); Pulse Ox 95% on R/A; as6 23:52 BP 118 / 83; Pulse 87; Resp 17; Pulse Ox 97% on 2 lpm NC; rv 02/24 00:44 BP 108 / 70; Pulse 67; Resp 16; Pulse Ox 96% on 2 lpm NC; rv 01:28 BP 119 / 82; Pulse 61; Resp 16; Pulse Ox 92% ; jj7 02:30 BP 135 / 98; Pulse 64; Resp 17; Pulse Ox 99% ; jj7 03:07 BP 148 / 88; Pulse 56; Resp 19; Pulse Ox 99% ; kd3 03:41 BP 152 / 83; Pulse 59; Resp 17; Pulse Ox 100% ; jj7 02/23 22:17 Body Mass Index 42.29 (122.47 kg, 170.18 cm) as6 02/23 22:17 Pain Scale: Adult as6 ED Course: 02/23 22:08 Patient arrived in ED. ag3 22:15 Uriel Krueger MD is Attending Physician. sp4 22:19 Triage completed. as6 22:20 Arm band placed on. as6 22:30 Modesto Linton RN is Primary Nurse. rv 22:40 XRAY Chest (1 view) In Process Unspecified. EDMS 22:42 Patient has correct armband on for positive identification. Bed in low position. Call jj7 light in reach. Side rails up X 1. Adult w/ patient. Client placed on continuous cardiac and pulse oximetry monitoring. NIBP monitoring applied. surveillance monitor on. Pulse ox on. 22:50 Inserted saline lock: 20 gauge in right antecubital area, using aseptic technique. jj7 Blood collected. 22:55 Basic Metabolic Panel Sent. rv 22:55 CBC with Diff Sent. rv 22:55 LFT's Sent. rv 22:55 Magnesium Sent. rv 22:55 NT PRO-BNP Sent. rv 22:55 PT-INR Sent. rv 22:55 Troponin HS Sent. rv 02/24 03:00 J Luis Bowles MD is Hospitalizing Provider. sp4 03:29 No provider procedures requiring assistance completed. Patient maintains SpO2 jj7 saturation greater than 95% on room air. 03:29 Patient admitted, IV remains in place. jj7 Administered Medications: 02/23 23:01 Drug: morphine IVP or IV 4 mg Route: IVP; Infused Over: 4 mins; Site: right antecubital;rv 02/24 02:49 Follow up: Response: Marked relief of symptoms jj7 02/23 23:01 Drug: Ondansetron IVP 4 mg Route: IVP; Site: right antecubital; rv 02/24 02:49 Follow up: Response: Marked relief of symptoms jj7 02:49 Drug: Aspirin PO Chewable Tablet 324 mg Route: PO; jj7 03:08 Follow up: Response: No adverse reaction kd3 02:49 Drug: Potassium Chloride PO 40 mEq Route: PO; jj7 03:08 Follow up: Response: No adverse reaction kd3 Medication: 02/23 22:42 VIS not applicable for this client. jj7 Outcome: 02/24 03:00 Decision to Hospitalize by Provider. sp4 03:29 Admitted to Med/surg accompanied by [facility], room 404. jj7 03:29 Condition: improved 03:40 Admitted to Med/surg Report called to JUDITH VELASQUEZ jj7 03:51 Patient left the ED. jj7 Signatures: Dispatcher [employer] EDMS Modesto Linton, RN RN Alina Lang3 Anthony De Jesus RN RN as6 Vanesa Pichardo RN RN kd3 Miryam Morales RN RN jj7 Uriel Krueger MD MD sp4
--- NOTE | 2023-02-24 03:01 | EDPHYS ---
Physician Documentation [facility] Name: Soy Frias Age: 57 yrs Sex: Male : 1965 Arrival Date: 02/23/2023 Time: 22:05 Bed 8 Private MD: ED Physician Uriel Krueger HPI: 02/24 02:05 This 57 yrs old Male presents to ER via Ambulatory with complaints of Chest sp4 Pain, Headache. 02:51 57-year-old male with history of hypertension, morbid obesity, hyperlipidemia presents sp4 with acute worsening left-sided chest pain and midsternal chest pain as well. Patient denies shortness of breath, diaphoresis, denied vomiting. Recent admission 01/07/2023 for right-sided weakness, hyperlipidemia, hypertension and morbid obesity. Patient has had a work-up for the stroke with negative MRI of the brain, patient was managed for blood pressure with amlodipine. 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 Patient was discharged home in improved condition. Patient's medications include lisinopril hydrochlorothiazide, atorvastatin, amlodipine, aspirin, valacyclovir, prednisone. Also includes aspirin,.. Historical: - Allergies: 02/23 22:19 No Known Allergies; as6 - PMHx: 22:19 Hypertension; diabetes mellitus; Hypercholesterolemia; as6 - PSHx: 22:19 None; as6 - Immunization history:: Client reports receiving the Andrew \T\ Andrew single-dose vaccine. - Social history:: Smoking status: Patient denies any tobacco usage or history of. - Family history:: not pertinent. ROS: 02/24 02:51 Constitutional: Negative for fever, chills, and weight loss, Eyes: Negative for injury, sp4 pain, redness, and discharge, ENT: Negative for injury, pain, and discharge, Neck: Negative for injury, pain, and swelling, Cardiovascular: Negative for palpitations, and edema, Positive chest pain Respiratory: Negative for shortness of breath, cough, wheezing, and pleuritic chest pain, Abdomen/GI: Negative for abdominal pain, nausea, vomiting, diarrhea, and constipation, Back: Negative for injury and pain, : Negative for injury, bleeding, discharge, and swelling, MS/Extremity: Negative for injury and deformity, Skin: Negative for injury, rash, and discoloration, Neuro: Negative for headache, weakness, numbness, tingling, and seizure, Psych: Negative for depression, anxiety, Allergy/Immunology: Negative for hives, rash, and allergies Endocrine: Negative for neck swelling, polydipsia, polyuria, polyphagia, and weight changes Hematologic/Lymphatic: Negative for swollen nodes, abnormal bleeding, and unusual bruising Exam: 02:51 Constitutional: This is a well developed, well nourished patient who is awake, alert, sp4 and in no acute distress. Head/Face: Normocephalic, atraumatic. Eyes: Pupils equal round and reactive to light, extra-ocular motions intact. Lids and lashes normal. Conjunctiva and sclera are not injected. Cornea within normal limits. Periorbital areas with no swelling, redness, or edema. ENT: Nares patent. No nasal discharge, no septal abnormalities noted. Tympanic membranes are normal and external auditory canals are clear. Oropharynx with no redness, swelling, or masses, exudates, or evidence of obstruction, uvula midline. Mucous membranes moist. Neck: Trachea midline, no thyromegaly or masses palpated, and no cervical lymphadenopathy. Supple, full range of motion without nuchal rigidity, or vertebral point tenderness. Chest/axilla: Normal chest wall appearance and motion. Nontender with no deformity. No lesions are appreciated. Cardiovascular: Regular rate and rhythm with a normal S1 and S2. No gallops, murmurs, or rubs. Normal PMI, no JVD. No pulse deficits. Respiratory: Lungs have equal breath sounds bilaterally, clear to auscultation and percussion. No rales, rhonchi or wheezes noted. No increased work of breathing, no retractions or nasal flaring. Abdomen/GI: Soft, non-tender, with normal bowel sounds. No distension or tympany. No guarding or rebound. No evidence of tenderness throughout. Back: No spinal tenderness. No costovertebral tenderness. Skin: Warm, dry with normal turgor. Normal color with no rashes, no lesions, and no evidence of cellulitis. MS/ Extremity: Pulses equal, no cyanosis. Neurovascular intact. Full, normal range of motion. Neuro: Awake and alert, GCS 15, oriented to person, place, time, and situation. Cranial nerves II-XII grossly intact. Motor strength 5/5 in all extremities. Sensory grossly intact. Psych: Awake, alert, with orientation to person, place and time. Behavior, mood, and affect are within normal limits 02:57 ECG was reviewed by the Attending Physician. EKG at 2325, normal sinus rhythm at rate sp4 of 70, normal EKG, no ectopy Vital Signs: 02/23 22:17 Weight 122.47 kg (R); Height 5 ft. 7 in. (R); Pain 9/10; as6 22:20 BP 154 / 99; Pulse 78; Resp 18 S; Temp 98.4(O); Pulse Ox 95% on R/A; as6 23:52 BP 118 / 83; Pulse 87; Resp 17; Pulse Ox 97% on 2 lpm NC; rv 02/24 00:44 BP 108 / 70; Pulse 67; Resp 16; Pulse Ox 96% on 2 lpm NC; rv 01:28 BP 119 / 82; Pulse 61; Resp 16; Pulse Ox 92% ; jj7 02:30 BP 135 / 98; Pulse 64; Resp 17; Pulse Ox 99% ; jj7 03:07 BP 148 / 88; Pulse 56; Resp 19; Pulse Ox 99% ; kd3 03:41 BP 152 / 83; Pulse 59; Resp 17; Pulse Ox 100% ; jj7 02/23 22:17 Body Mass Index 42.29 (122.47 kg, 170.18 cm) as6 02/23 22:17 Pain Scale: Adult as6 MDM: 02/23 22:15 Patient medically screened. sp4 02/24 02:51 HEART Score: History: Moderately Suspicious (1), ECG: Normal (0), Age: > 45 and < 65 sp4 years (1), Risk Factors: > or = 3 Risk factors for atherosclerotic disease (2), [Hypercholesterolemia] [Hypertension] [Obesity] Troponin: < or = 1 x Normal Limit (0), Total Score = 4. The patient was given aspirin in the Emergency Department. Data reviewed: vital signs, nurses notes, old medical records, lab test result(s), EKG, radiologic studies, plain films. ED course: EKG is normal today. Work-up was basically unremarkable. Secondary to risk factors patient warrants admission for rule out ACS and cardiology evaluation.. . 02:58 ED course: X-ray reveals no acute cardiopulmonary disease, there is mild hypokalemia sp4 but otherwise normal work-up.. 02/23 22:15 Order name: Basic Metabolic Panel; Complete Time: 02:05 sp4 02/23 22:15 Order name: CBC with Diff; Complete Time: 02:05 sp4 02/23 22:15 Order name: LFT's; Complete Time: 02:05 sp4 02/23 22:15 Order name: Magnesium; Complete Time: 02:05 sp4 02/23 22:15 Order name: NT PRO-BNP; Complete Time: 02:05 sp4 02/23 22:15 Order name: PT-INR; Complete Time: 02:05 sp4 02/23 22:15 Order name: Troponin HS; Complete Time: 02:05 sp4 02/23 22:15 Order name: XRAY Chest (1 view) 4 02/23 22:15 Order name: EKG; Complete Time: 22:16 sp4 02/23 22:15 Order name: Cardiac monitoring; Complete Time: 22:42 4 02/23 22:15 Order name: EKG - Nurse/Tech; Complete Time: 22:28 sp4 02/23 22:15 Order name: IV Saline Lock; Complete Time: 22:42 sp4 02/23 22:15 Order name: Labs collected and sent; Complete Time: 22:42 sp4 02/23 22:15 Order name: O2 Per Protocol; Complete Time: 22:42 sp4 02/23 22:15 Order name: O2 Sat Monitoring; Complete Time: 22:42 sp4 EC:57 Rate is 70 beats/min. Rhythm is regular, Normal Sinus Rhythm. QRS [place] is Normal. DE sp4 interval is normal. QRS interval is normal. QT interval is normal. No Q waves. T waves are Normal. No ST changes noted. Clinical impression: No evidence of ischemia. Interpreted by me. Administered Medications: 02/23 23:01 Drug: morphine IVP or IV 4 mg Route: IVP; Infused Over: 4 mins; Site: right antecubital;rv 02/24 02:49 Follow up: Response: Marked relief of symptoms jj7 02/23 23:01 Drug: Ondansetron IVP 4 mg Route: IVP; Site: right antecubital; rv 02/24 02:49 Follow up: Response: Marked relief of symptoms jj7 02:49 Drug: Aspirin PO Chewable Tablet 324 mg Route: PO; jj7 03:08 Follow up: Response: No adverse reaction kd3 02:49 Drug: Potassium Chloride PO 40 mEq Route: PO; jj7 03:08 Follow up: Response: No adverse reaction kd3 Disposition Summary: 02/24/23 03:00 Hospitalization Ordered Hospitalization Status: Observation sp4 Provider: J Luis Bowles sp4 Location: Telemetry/[facility]Sur (observation) sp4 Condition: Stable sp4 Problem: new sp4 Symptoms: have improved sp4 Bed/Room Type: Standard sp4 Room Assignment: 404(02/24/23 03:24) cg Diagnosis - Unstable angina sp4 Forms: - Medication Reconciliation Form sp4 - SBAR form sp4 Signatures: Dispatcher [employer] Georgina Cross RN RN Modesto Boateng RN RN rv Anthony De Jesus RN RN as6 Vanesa Pichardo RN RN kd3 Miryam Morales RN RON jj7 Uriel Krueger MD MD sp4 Corrections: (The following items were deleted from the chart) 03:24 03:00 sp4 cg
--- NOTE | 2023-02-24 03:09 | P.HP ---
Certification for Inpatient Patient admitted to: Observation With expected LOS: <2 Midnights Patient will require the following post-hospital care: None Practitioner: I am a practitioner with admitting privileges, knowledge of patient current condition, hospital course, and medical plan of care. Services: Services provided to patient in accordance with Admission requirements found in Title 42 Section 412.3 of the Code of Federal Regulations <Crescencio Slater - Last Filed: 02/24/23 03:07> Patient History Date of Service: 02/24/23 Reason for admission: Chest pain History of Present Illness: 57-year-old male with history of swf-mohvphx-ypzlqxuvl diabetes, hypertension, hyperlipidemia presents emergency department chief complaint of chest pain. He reports left-sided chest pain described as stabbing nonradiating with associated shortness of breath. He has been experiencing the symptoms intermittently over the course of the last year or so he is not finding that makes the symptoms particularly worse, not related to eating as far as he can tell. He was prescribed nitroglycerin by his PCP he reports that does occasionally relieve his pain. He denies ever having a stress test or a heart catheterization in the past. He was evaluated in the emergency department his labs are significant for initial high-sensitivity troponin 49.1 EKG without STEMI criteria present ED provider wishes to admit patient for ACS rule out. - Past Medical/Surgical History Diabetic: No -: HTN -: HLD -: Ive-doypwmg-qmbklpios diabetes -: None Psychosocial/ Personal History: Patient lives at home with his . - Social History Smoking Status: Never smoker Alcohol use: No CD- Drugs: No Caffeine use: No Place of Residence: Home <Crescencio Slater - Last Filed: 02/24/23 03:07> Date of Service: 02/24/23 <J Luis Bowles - Last Filed: 02/24/23 21:06> Allergies No Known Allergies Allergy (Verified 01/06/23 19:25) Home Medications: Lisinopril/Hydrochlorothiazide [Lisinopril-Hctz 20-12.5 mg Tab] 2 tab PO DAILY 02/29/20 Amlodipine [Norvasc*] 10 mg PO DAILY #30 tab 01/07/23 Carvedilol [Coreg] 3.125 mg PO DAILY 02/24/23 Metformin ER [Glucophage ER] 500 mg PO DAILY 02/24/23 Sildenafil Citrate 50 mg PO DAILY PRN 02/24/23 Testosterone Cypionate 0.7 ml IM SEECOM 02/24/23 Review of Systems 10-point ROS is otherwise unremarkable Cardiovascular: Chest Pain <Crescencio Slater - Last Filed: 02/24/23 03:07> Physical Examination - Physical Exam General: Alert, In no apparent distress, Oriented x3 HEENT: Atraumatic, PERRLA, Mucous membr. moist/pink, EOMI, Sclerae nonicteric Neck: Supple, 2+ carotid pulse no bruit, No LAD, Without JVD or thyroid abnormality Respiratory: Clear to auscultation bilaterally, Normal air movement Cardiovascular: Regular rate/rhythm, Normal S1 S2 Capillary refill: <2 Seconds Gastrointestinal: Normal bowel sounds, No tenderness Musculoskeletal: No tenderness Integumentary: No rashes Neurological: Normal speech, Normal strength at 5/5 x4 extr, Normal tone, Normal affect - Studies Laboratory Data (last 24 hrs) 02/23/23 22:35: PT 10.6, INR 0.96 02/23/23 22:35: WBC 9.50, Hgb 16.2, Hct 48.5, Plt Count 231 02/23/23 22:35: Sodium 137, Potassium 3.2 L, BUN 21 H, Creatinine 1.22, Glucose 108 H, Magnesium 2.1, Total Bilirubin 0.5, AST 15, ALT 38, Alkaline Phosphatase 99 <Crescencio Slater - Last Filed: 02/24/23 03:07> - Studies Laboratory Data (last 24 hrs) 02/23/23 22:35: PT 10.6, INR 0.96 02/23/23 22:35: WBC 9.50, Hgb 16.2, Hct 48.5, Plt Count 231 02/23/23 22:35: Sodium 137, Potassium 3.2 L, BUN 21 H, Creatinine 1.22, Glucose 108 H, Magnesium 2.1, Total Bilirubin 0.5, AST 15, ALT 38, Alkaline Phosphatase 99 <J Luis Bowles - Last Filed: 02/24/23 21:06> Assessment and Plan - Plan Assessment: Chest pain rule out ACS Diabetes mellitus type 8nvs-egvvlfl-prrnkxcwj Hypertension Hyperlipidemia Plan: Chest pain rule out ACS Trend troponins, monitor on telemetry, cardiology consult in place. Continue aspirin, statin. Had echocardiogram 2021 which was normal no further cardiac evaluation has been performed. Diabetes mellitus type 0wxf-vrxpsbi-llsglgmny ACHS Accu-Chek, sliding scale sent. Hypertension Hyperlipidemia Continue home medications. DVT PPX: Lovenox Code status: Full Discharge Plan: Home Plan to discharge in: 24 Hours - Advance Directives Does patient have a Living Will: No Does patient have a Durable POA for Healthcare: No - Code Status/Comfort Care Code Status Assessed: Yes (Full code) Critical Care: No Time Spent Managing Pts Care (In Minutes): 55 <Crescencio Slater - Last Filed: 02/24/23 03:07> - Plan Patient seen and examined on rounds this morning. Continues with slight chest pain. No shortness of breath intermittent pains for quite some time, relieved by nitro says his cardiac f/u appointment was postponed due to personal reasons and re- scheduled for today recent NSTEMI here, no stress/cath done suspect patient will need inpatient stress testing cardiology consulted <J Luis Bowles - Last Filed: 02/24/23 21:06>
[2023-02-24] MEDS ORDERED: NITROGLYCERIN 0.4 MG/TAB SL PRN (03:57)
[2023-02-24] MEDS: MORPHINE 2 MG/ML SYR IV PRN ×2 (04:26→19:58)
[2023-02-24] MEDS: ONDANSETRON 4 MG/2 ML VIAL IV PRN (04:36)
[2023-02-24] MEDS: ACETAMINOPHEN 325 MG TABLET PO PRN ×2 (05:18→13:01)
[2023-02-24 05:38] VITALS: BMI 42.3
[2023-02-24 06:28] LABS: Absolute Lymphocytes (CBC) 2.7 K/uL (0.7-4.9); Hematocrit 46.3 % (39.6-49.0); Lymphocytes % 35.7 % (15.3-44.8); MCV 94.2 fL (80-100); MPV 9.8 fL (7.6-11.3); RBC Red Blood Cell Count 4.91 M/uL (4.33-5.43)
[2023-02-24 06:54] LABS: Potassium 3.7 mEq/L (3.5-5.1)
[2023-02-24] MEDS: INSULIN -REGULAR HUMAN 50 UNIT/0.5 ML ML SQ SCH ×4 (07:28→21:00)
[2023-02-24] MEDS: ENOXAPARIN 40 MG/0.4 ML SQ SCH (07:50)
[2023-02-24] MEDS: ASPIRIN EC 81 MG TAB PO SCH (07:50)
[2023-02-24] MEDS ORDERED: PNEUMOCOCCAL VACCINE 0.5 ML IMVAC ONE (08:00)
--- NOTE | 2023-02-24 08:56 | P.PN ---
Date of Service: 02/25/23 Subjective: chest pain is improving slowly (5/10 pain scale); +normal sinus rhythm feels pressure in back of neck decreased sensation on right extremities, +decreased strength since yesterday feels this episode is less severe than last time has had multiple episodes in the past, most recently ~1 month ago, seen by neuro, diagnosed with recurrent leone's palsy ROS: 10 point ROS as noted above, otherwise negative Physical Exam: GEN: Alert, oriented, NAD HEENT: Normal conjunctiva, sclera anicteric CV: Regular rate and rhythm, no edema Pulm: Nonlabored respirations on 1L NC ABD: Soft, nontender, nondistended MSK: No joint tenderness Integumentary: No rashes Neuro: mild lower right facial droop, slight diminished sensation from right forehead down to right foot strength of RUE/RLE intact vitals reviewed Problem List: Chest pain; prior NSTEMI R sided weakness/numbness; h/o recurrent Leone's palsy NIDDM2 Hypertension Hyperlipidemia Chest pain prior NSTEMI recent admission, had elevated trop, and was supposed to f/u as outpatient for stress testing, but unable to cardiology consulted Continue aspirin, statin last echo (2021) was normal no further cardiac evaluation has been performed since tentative stress test planned for today 02/25 R sided weakness/numbness many prior episodes, similar symptoms/presentation. diagnosed with recurrent leone's palsy in past last episode was January 2023, MRI negative, neuro consulted, episodes seem to resolve within 1-2 weeks Patient states they have been having some R sided weakness/numbness onset since yesterday Neurology consulted NIDDM2 ACHS Accu-Chek, sliding scale sent. Hypertension Hyperlipidemia Continue home medications DVT PPX: Lovenox Code status: Full VTE: Lovenox Code: Full Dispo: Home after further cardiac eval
--- NOTE | 2023-02-24 10:57 | RAD REPORT ---
EXAM DESCRIPTION: RAD - Chest Single View - 02/23/2023 10:38 pm CLINICAL HISTORY: CHEST PAIN TECHNIQUE: AP chest COMPARISON: No priors FINDINGS: CHEST: Heart: The cardiomediastinal silhouette is within normal limits. Lungs: No focal consolidation. Mediastinum: Unremarkable Pleura: No appreciable effusion. No pneumothorax. Bones: Intact IMPRESSION: No acute cardiopulmonary disease. Electronically signed by: Shadi Reina MD 02/23/2023 11:08 PM CDT Due to temporary technical issues with the PACS/Fluency reporting system, reports are being signed by the in house radiologists without review as a courtesy to insure prompt reporting. The interpreting radiologist is fully responsible for the content of the report.
[2023-02-24] MEDS: HYDRALAZINE HCL 20 MG/ML VIAL IV PRN (12:01)
--- NOTE | 2023-02-24 17:40 | EKG ---
Test Date: 2023-02-23 Test Time: 22:25:30 Vacuum Cleaner Operator: BRIA MEASUREMENT RESULTS: Intervals: Rate: 70 NH: 144 QRSD: 110 QT: 382 QTc: 412 Mcclure: P: 51 NH: 144 QRS: 17 T: 11 INTERPRETIVE STATEMENTS: Normal sinus rhythm Normal ECG Compared to ECG 01/06/2023 14:57:05 No significant changes Electronically Signed On 02-24-23 17:39:18 CDT by Israel Carroll
[2023-02-24] MEDS: ATORVASTATIN 40 MG TAB PO SCH (19:58)
[2023-02-25 04:23] LABS: Absolute Lymphocytes (CBC) 2.6 K/uL (0.7-4.9); Lymphocytes % 34.1 % (15.3-44.8); MCV 94.4 fL (80-100); MPV 9.9 fL (7.6-11.3); RBC Red Blood Cell Count 4.87 M/uL (4.33-5.43)
[2023-02-25 04:35] LABS: Potassium 3.7 mEq/L (3.5-5.1)
[2023-02-25] MEDS: INSULIN -REGULAR HUMAN 50 UNIT/0.5 ML ML SQ SCH ×4 (07:30→21:00)
[2023-02-25] MEDS ORDERED: POTASSIUM CL SA 10 MEQ TAB PO ONE (09:00)
[2023-02-25] MEDS: ASPIRIN EC 81 MG TAB PO SCH (09:20)
[2023-02-25] MEDS: HYDRALAZINE HCL 20 MG/ML VIAL IV PRN (09:20)
[2023-02-25] MEDS: ENOXAPARIN 40 MG/0.4 ML SQ SCH (09:20)
[2023-02-25] MEDS: ACETAMINOPHEN 325 MG TABLET PO PRN ×2 (13:16→21:46)
[2023-02-25] MEDS ORDERED: carvediloL 3.125 MG TAB PO SCH (16:00)
[2023-02-25] MEDS: carvediloL 3.125 MG TAB PO SCH (16:52)
[2023-02-25] MEDS: MORPHINE 2 MG/ML SYR IV PRN (18:32)
[2023-02-25] MEDS: ATORVASTATIN 40 MG TAB PO SCH (21:44)
[2023-02-26 04:19] LABS: Absolute Lymphocytes (CBC) 2.8 K/uL (0.7-4.9); Hematocrit 45.1 % (39.6-49.0); Lymphocytes % 31.5 % (15.3-44.8); MCV 94.3 fL (80-100); RBC Red Blood Cell Count 4.78 M/uL (4.33-5.43)
[2023-02-26 04:35] LABS: Potassium 3.9 mEq/L (3.5-5.1)
[2023-02-26] MEDS: MORPHINE 2 MG/ML SYR IV PRN (05:12)
--- NOTE | 2023-02-26 07:04 | P.PN ---
Date of Service: 02/26/23 Subjective: reports trouble breathing for a few minutes ~3 minutes after taking medication; also occurs when eating sometimes all medication hes been given he takes at home except for aspirin wakes up gasping for air intermittently at home; ~3-4 days a week (for at least a year), +chronic snoring chest pain improving, SOB on exertion R side numbness ~same ROS: 10 point ROS as noted above, otherwise negative Physical Exam: GEN: Alert, oriented, NAD HEENT: Normal conjunctiva, sclera anicteric CV: Regular rate and rhythm, no edema Pulm: Nonlabored respirations on 0.5L NC ABD: Soft, nontender, nondistended MSK: No joint tenderness Integumentary: No rashes Neuro: mild lower right facial droop, slight diminished sensation from right forehead down to right foot strength of RUE/RLE intact vitals reviewed Problem List: Chest pain; prior NSTEMI R sided weakness/numbness; h/o recurrent Leone's palsy sleep apnea, suspected NIDDM2 Hypertension Hyperlipidemia Chest pain prior NSTEMI recent admission, had elevated trop, and was supposed to f/u as outpatient for stress testing, but unable to cardiology consulted Continue statin last echo (2021) was normal no further cardiac evaluation has been performed since Stress test ordered, unable to be performed on tuesday due to machine not working. D-Dimer ordered 02/26 PRN pain meds R sided weakness/numbness many prior episodes, similar symptoms/presentation. diagnosed with recurrent leone's palsy in past last episode was January 2023, MRI negative, neuro consulted, episodes seem to resolve within 1-2 weeks Patient states they have been having some R sided weakness/numbness onset since admission has recurrent episodes Neurology consulted NIDDM2 ACHS Accu-Chek, sliding scale sent sleep apnea, suspected 02/26 - patient reports wakes up gasping for air intermittently at home; ~3-4 days a week (for at least 1+ years) +chronic snoring has never had a sleep study before highly suspicious for sleep apnea; STOP-BANG score of 4 recommended patient to get outpatient sleep study with PCP / pulmonology Hypertension Hyperlipidemia Continue home medications amlodipine, lisinopril, HCTZ VTE: Lovenox Code: Full Dispo: Home after further cardiac eval
[2023-02-26] MEDS: INSULIN -REGULAR HUMAN 50 UNIT/0.5 ML ML SQ SCH ×4 (07:30→21:00)
[2023-02-26] MEDS: ENOXAPARIN 40 MG/0.4 ML SQ SCH (08:10)
[2023-02-26] MEDS: hydroCHLOROthiazide 25 MG TAB PO SCH (08:10)
[2023-02-26] MEDS: carvediloL 3.125 MG TAB PO SCH ×2 (08:11→17:18)
[2023-02-26] MEDS: lisinopriL 20 MG TAB PO SCH (08:11)
[2023-02-26] MEDS: AMLODIPINE 10 MG TAB PO SCH (08:11)
[2023-02-26] MEDS: ASPIRIN EC 81 MG TAB PO SCH (08:11)
[2023-02-26] MEDS ORDERED: POTASSIUM CL SA 10 MEQ TAB PO ONE (09:00)
[2023-02-26] MEDS: ACETAMINOPHEN 325 MG TABLET PO PRN (17:17)
[2023-02-26] MEDS: ATORVASTATIN 40 MG TAB PO SCH (21:05)
[2023-02-27] MEDS: MORPHINE 2 MG/ML SYR IV PRN ×2 (01:15→17:59)
[2023-02-27 04:59] LABS: Potassium 3.7 mEq/L (3.5-5.1)
--- NOTE | 2023-02-27 07:09 | P.PN ---
Date of Service: 02/27/23 Subjective: doing okay; chest pain persists but slightly less no trouble breathing today, no issues after given medications today (without aspirin) no acute events overnight waiting for stress test ROS: 10 point ROS as noted above, otherwise negative Physical Exam: GEN: Alert, oriented, NAD HEENT: Normal conjunctiva, sclera anicteric CV: Regular rate and rhythm, no edema Pulm: Nonlabored respirations on 0.5L NC ABD: Soft, nontender, nondistended Neuro: mild lower right facial droop, slight diminished sensation from right forehead down to right foot strength of RUE/RLE intact vitals reviewed Problem List: Chest pain; prior NSTEMI R sided weakness/numbness; h/o recurrent Leone's palsy sleep apnea, suspected NIDDM2 Hypertension Hyperlipidemia Chest pain prior NSTEMI recent admission, had elevated trop, and was supposed to f/u as outpatient for stress testing, but unable to cardiology consulted Continue statin last echo (2021) was normal no further cardiac evaluation has been performed since Stress test ordered, unable to be performed on Tuesday due to machine not working. NPO after midnight for tentative stress test tomorrow D-Dimer (02/26): wnl, 304 PRN pain meds R sided weakness/numbness many prior episodes, similar symptoms/presentation. diagnosed with recurrent leone's palsy in past last episode was January 2023, MRI negative, neuro consulted, episodes seem to resolve within 1-2 weeks Patient states they have been having some R sided weakness/numbness onset since admission has recurrent episodes Neurology consulted NIDDM2 ACHS Accu-Chek, sliding scale sent sleep apnea, suspected 02/26 - patient reports wakes up gasping for air intermittently at home; ~3-4 days a week (for at least 1+ years) +chronic snoring has never had a sleep study before highly suspicious for sleep apnea; STOP-BANG score of 4 recommended patient to get outpatient sleep study with PCP / pulmonology Hypertension Hyperlipidemia Continue home medications amlodipine, lisinopril, HCTZ VTE: Lovenox Code: Full Dispo: Home after further cardiac eval
[2023-02-27] MEDS: INSULIN -REGULAR HUMAN 50 UNIT/0.5 ML ML SQ SCH ×4 (07:30→20:05)
[2023-02-27] MEDS: AMLODIPINE 10 MG TAB PO SCH (09:43)
[2023-02-27] MEDS: carvediloL 3.125 MG TAB PO SCH ×2 (09:43→17:55)
[2023-02-27] MEDS: lisinopriL 20 MG TAB PO SCH (09:43)
[2023-02-27] MEDS: ENOXAPARIN 40 MG/0.4 ML SQ SCH (09:44)
[2023-02-27] MEDS: hydroCHLOROthiazide 25 MG TAB PO SCH (09:44)
[2023-02-27] MEDS: ACETAMINOPHEN 325 MG TABLET PO PRN (09:53)
[2023-02-27] MEDS: ATORVASTATIN 40 MG TAB PO SCH (20:08)
[2023-02-28 00:40] VITALS: O2SAT 97
--- NOTE | 2023-02-28 02:12 | PN ---
Date of Progress Note: 02/27/2023 Subjective: Seen by bedside. He claims that he continues to have some chest pain on and off. Review of Systems: No nausea, vomiting, diarrhea. No abdominal pain. No dysuria, polyuria, or urinary urgency. All ot her systems reviewed and they were negative. Physical Examination: Vital Signs: Reviewed. Head and Neck: Pupils are equal, reactive to light. Intact eye movements. No JVD . Extremities: No edema, clubbing, or cyanosis. Intact pulses. Skin: No rash. Neurologic: Alert, awake, oriented x3. No acute focal deficits appreciated. Lymph Nodes: No cervical or axillary lymphadenopathy. Investigations: Labs were reviewed. Assessment And Recommendations: 1.Chest pain. It is atypical. Cardiac enzymes are negative. From my perspective, he can be releas ed and do a stress test as an outpatient. Please obtain an echocardiogram in the morning. 2.Hypertension. Blood pressure is borderline elevated. Increase the Coreg to 6.25 mg twice a day. Again, from Cardiology standpoint, this patient can be released and have an outpatient workup unless the stress test machine becomes functional tomorrow. SR/MODL Voice ID: [id number] Report ID: [id number]
[2023-02-28 05:54] LABS: Potassium 3.5 mEq/L (3.5-5.1)
--- NOTE | 2023-02-28 07:13 | P.PN ---
Date of Service: 02/28/23 Subjective: chest pain continues (5-02/12) dyspnea after ambulating to restroom no acute events overnight ROS: 10 point ROS as noted above, otherwise negative Physical Exam: GEN: Alert, oriented, NAD HEENT: Normal conjunctiva, sclera anicteric CV: Regular rate and rhythm, no edema Pulm: Nonlabored respirations on 0.5L NC ABD: Soft, nontender, nondistended Neuro: mild lower right facial droop, slight diminished sensation from right forehead down to right foot strength of RUE/RLE intact vitals reviewed Problem List: Chest pain; prior NSTEMI R sided weakness/numbness; h/o recurrent Leone's palsy NIDDM2 sleep apnea, suspected Hypertension Hyperlipidemia Chest pain prior NSTEMI recent admission, had elevated trop, and was supposed to f/u as outpatient for stress testing, but unable to cardiology consulted Continue statin last echo (2021) was normal no further cardiac evaluation has been performed since Stress test ordered, unable to be performed on Tuesday due to machine not working. Echo ordered (04/30) - eval for wall motion abnormality D-Dimer (02/26): wnl, 304 PRN pain meds R sided weakness/numbness h/o recurrent Leone's palsy many prior episodes, similar symptoms/presentation. diagnosed with recurrent leone's palsy in past last episode was January 2023, MRI negative, neuro consulted, episodes seem to resolve within 1-2 weeks Patient states they have been having some R sided weakness/numbness onset since admission has recurrent episodes Neurology consulted NIDDM2 ACHS Accu-Chek, sliding scale sent sleep apnea, suspected 02/26 - patient reports wakes up gasping for air intermittently at home; ~3-4 days a week (for at least 1+ years) +chronic snoring has never had a sleep study before highly suspicious for sleep apnea; STOP-BANG score of 4 recommended patient to get outpatient sleep study with PCP / pulmonology Hypertension Hyperlipidemia Continue home medications amlodipine, lisinopril, HCTZ VTE: Lovenox Code: Full Dispo: Home after further cardiac eval possible DC in afternoon pending echo results
[2023-02-28] MEDS: INSULIN -REGULAR HUMAN 50 UNIT/0.5 ML ML SQ SCH ×4 (07:30→21:00)
[2023-02-28] MEDS: lisinopriL 20 MG TAB PO SCH (08:36)
[2023-02-28] MEDS: hydroCHLOROthiazide 25 MG TAB PO SCH (08:37)
[2023-02-28] MEDS: AMLODIPINE 10 MG TAB PO SCH (08:37)
[2023-02-28] MEDS: carvediloL 3.125 MG TAB PO SCH ×2 (08:37→17:42)
[2023-02-28] MEDS: ENOXAPARIN 40 MG/0.4 ML SQ SCH (08:38)
[2023-02-28] MEDS: ACETAMINOPHEN 325 MG TABLET PO PRN ×2 (08:46→19:44)
[2023-02-28] MEDS ORDERED: POTASSIUM CL SA 10 MEQ TAB PO ONE (09:00)
[2023-02-28] MEDS: ONDANSETRON 4 MG/2 ML VIAL IV PRN (13:18)
[2023-02-28] MEDS: MORPHINE 2 MG/ML SYR IV PRN ×2 (13:18→19:44)
--- NOTE | 2023-02-28 14:53 | ECHO ---
HEIGHT: 5 ft 7 in WEIGHT: 270 lb 0 oz DATE OF STUDY: 02/28/[address]: J Luis Bowles MD 2-DIMENSIONAL: YES M.MODE: YES DOPPLER: YES COLOR FLOW: YES TDS: YES PORTABLE: YES DEFINITY: BUBBLE STUDY: DIAGNOSIS: ACUTE CORONARY SYNDROME, EVALUATE WALL MOTION CARDIAC HISTORY: CATHERIZATION: NO SURGERY: NO PROSTHETIC VALVE: NO PACEMAKER: NO MEASUREMENTS (cm) DIASTOLIC (NORMALS) SYSTOLIC (NORMALS) IVSd (0.6-1.2) LA Diam (1.9-4.0) LVEF 55-60 % LVIDd (3.5-5.7) LVIDs (2.0-3.5) %FS % LVPWd (0.6-1.2) Ao Diam (2.0-3.7) 2 DIMENSIONAL ASSESSMENT: RIGHT ATRIUM: NOT WELL SEEN LEFT ATRIUM: NORMAL RIGHT VENTRICLE: NOT WELL SEEN LEFT VENTRICLE: NORMAL TRICUSPID VALVE: NOT WELL SEEN MITRAL VALVE: MILD MITRAL REGURGITATION PULMONIC VALVE: NOT WELL SEEN AORTIC VALVE: NORMAL PERICARDIAL EFFUSION: NOT WELL SEEN AORTIC ROOT: NOT WELL SEEN LEFT VENTRICULAR WALL MOTION: NOT WELL SEEN DOPPLER/COLOR FLOW: SEE BELOW COMMENTS: 1. VERY POOR STUDY WITH LIMITED WINDOWS 2. OVERALL LEFT VENTRICULAR EJECTION FRACTION APPEARS NORMAL 55-60% TECHNOLOGIST: AVILA CORDOVA
[2023-02-28] MEDS: ATORVASTATIN 40 MG TAB PO SCH (19:44)
[2023-03-01] MEDS: INSULIN -REGULAR HUMAN 50 UNIT/0.5 ML ML SQ SCH (07:30)
[2023-03-01] MEDS ORDERED: REGADENOSON 0.4 MG/5 ML SYR IV ONE (07:45)
[2023-03-01 07:52] VITALS: BP 140/80; TEMP 96.8
[2023-03-01] MEDS: ONDANSETRON 4 MG/2 ML VIAL IV PRN (08:47)
[2023-03-01] MEDS ORDERED: ONDANSETRON 4 MG/2 ML VIAL ONE (08:50)
[2023-03-01] MEDS: ACETAMINOPHEN 325 MG TABLET PO PRN (09:47)
[2023-03-01] MEDS: lisinopriL 20 MG TAB PO SCH (09:47)
[2023-03-01] MEDS: AMLODIPINE 10 MG TAB PO SCH (09:47)
[2023-03-01] MEDS: hydroCHLOROthiazide 25 MG TAB PO SCH (09:48)
[2023-03-01] MEDS: carvediloL 3.125 MG TAB PO SCH (09:48)
[2023-03-01] MEDS: ENOXAPARIN 40 MG/0.4 ML SQ SCH (09:48)
--- NOTE | 2023-03-01 10:05 | RAD REPORT ---
EXAM DESCRIPTION: NM - Rest Stress Cardiac Imaging - 03/01/2023 9:51 am CLINICAL HISTORY: CP Chest pain. COMPARISON: REST STRESS CARDIAC dated 01/10/2012 TECHNIQUE: The patient was administered approximately 10mCi of Tc 99m Sestamibi prior to resting SPE CT imaging of the heart. The patient was then administered approximately 30 mCi of Tc 99m Sestamibi f ollowing exercise or pharmacologic stress. Multiplanar SPECT images were reviewed. FINDINGS: No stress induced ischemic defect is seen to suggest stress induced ischemia. No fixed def ect is seen to suggest hibernating myocardium or scarred myocardium. The end diastolic volume is 120 ml, the end systolic volume is 59 ml, and the ejection fraction is 51 %. IMPRESSION: No stress induced ischemia.
--- NOTE | 2023-03-01 13:25 | P.DS ---
Admission Date: 02/26/23 Discharge Date: 03/01/23 Disposition: ROUTINE DISCHARGE Reason for Admission: Chest pain Brief History of Present Illness: 57-year-old male with history of wnz-dfgshhs-qfdpmwjoy diabetes, hypertension, hyperlipidemia presents emergency department chief complaint of chest pain. He reports left-sided chest pain described as stabbing nonradiating with associated shortness of breath. He has been experiencing the symptoms intermittently over the course of the past one year, no known aggravating or relieving factors. He was prescribed nitroglycerin by his PCP which he reports that does occasionally relieve his pain. He denies ever having a stress test or a heart catheterization in the past. He was evaluated in the emergency department his labs are significant for initial high-sensitivity troponin 49.1 EKG without STEMI criteria present. Patient hospitalized for ACS rule out. Hospital Course: Diagnosis: Chest pain; prior NSTEMI R sided weakness/numbness; h/o recurrent Leone's palsy NIDDM2 sleep apnea, suspected Hypertension Hyperlipidemia Chest pain prior NSTEMI recent admission, had elevated trop, and was supposed to f/u as outpatient for stress testing, but was unable to Patient treated with statin last echo (2021) was normal no further cardiac evaluation has been performed since Echo ordered (04/30) - eval for wall motion abnormality D-Dimer (02/26): wnl, 304 Nuclear stress test done did not show any stress-induced ischemia or fixed defect. ACS ruled out. Lipid profile showed elevated LDL up to 166. Patient is placed on aspirin and Lipitor R sided weakness/numbness h/o recurrent Leone's palsy many prior episodes, similar symptoms/presentation. diagnosed with recurrent leone's palsy in past last episode was January 2023, MRI negative, neuro consulted, episodes seem to resolve within 1-2 weeks has been experiencing recurrent episodes Follow-up with neurology. NIDDM2 Managed with ACHS Accu-Chek, sliding scale sent sleep apnea, suspected 02/26 - patient reports wakes up gasping for air intermittently at home; ~3-4 days a week (for at least 1+ years) +chronic snoring has never had a sleep study before highly suspicious for sleep apnea; STOP-BANG score of 4 Outpatient sleep study with PCP / pulmonology recommended. Hypertension Hyperlipidemia Continued home medications amlodipine, lisinopril, HCTZ Vital Signs/Physical Exam: Temp Pulse Resp BP Pulse Ox 96.8 F 57 16 140/80 97 03/01/23 07:51 03/01/23 09:48 03/01/23 07:51 03/01/23 09:48 03/01/23 07:51 General: Alert, In no apparent distress, Oriented x3 HEENT: Mucous membr. moist/pink Neck: 2+ carotid pulse no bruit Respiratory: Clear to auscultation bilaterally, Normal air movement Cardiovascular: No edema, Regular rate/rhythm, Normal S1 S2 Gastrointestinal: Normal bowel sounds, Soft and benign, Non-distended, No guarding Musculoskeletal: No clubbing, No swelling Integumentary: No rashes Neurological: Normal speech, Normal strength at 5/5 x4 extr, Cranial nerves 3-12 intact Laboratory Data at Discharge: WBC 9.10 thou/uL (4.3-10.9) 02/26/23 03:49 Hgb 15.0 g/dL (13.6-17.9) 02/26/23 03:49 Hct 45.1 % (39.6-49.0) 02/26/23 03:49 Plt Count 226 thou/uL (152-406) 02/26/23 03:49 PT 10.6 SECONDS (9.5-12.5) 02/23/23 22:35 INR 0.96 02/23/23 22:35 Sodium 136 mEq/L (136-145) 02/28/23 05:08 Potassium 3.5 mEq/L (3.5-5.1) 02/28/23 05:08 BUN 16 mg/dL (7-18) 02/28/23 05:08 Creatinine 1.20 mg/dL (0.70-1.30) 02/28/23 05:08 Glucose 116 mg/dL (74-106) H 02/28/23 05:08 Magnesium 2.0 mg/dL (1.6-2.4) 02/28/23 05:08 Total Bilirubin 0.5 mg/dL (0.2-1.0) 02/23/23 22:35 AST 15 U/L (15-37) 02/23/23 22:35 ALT 38 U/L (16-61) 02/23/23 22:35 Alkaline Phosphatase 99 U/L (45-117) 02/23/23 22:35 Triglycerides 114 mg/dL (<150) 02/24/23 05:54 Cholesterol 239 mg/dL (<200) H 02/24/23 05:54 HDL Cholesterol 50 mg/dL (40-60) 02/24/23 05:54 Cholesterol/HDL Ratio 4.78 02/24/23 05:54 Home Medications: Lisinopril/Hydrochlorothiazide [Lisinopril-Hctz 20-12.5 mg Tab] 2 tab PO DAILY 02/29/20 Amlodipine [Norvasc*] 10 mg PO DAILY #30 tab 01/07/23 Carvedilol [Coreg] 3.125 mg PO BIDWM 02/24/23 Metformin ER [Glucophage ER*] 500 mg PO DAILY 02/24/23 Sildenafil Citrate 50 mg PO DAILY PRN 02/24/23 Testosterone Cypionate 0.7 ml IM SEECOM 02/24/23 Atorvastatin Calcium [Lipitor] 40 mg PO BEDTIME #30 tab 03/01/23 New Medications: Atorvastatin Calcium [Lipitor] 40 mg PO BEDTIME #30 tab Time spent managing pt's care (in minutes): 36
--- NOTE | 2023-03-02 07:06 | TREADPHA ---
DX: CHEST PAIN Date of Study: 03/01/2023 Ht: 5' 7 " Wt: 270 lb 0 oz Consulting Physician: [place] MEDICATIONS: TYLENOL, NORVASC, LIPITOR, COREG, LOVENOX, APRESOLINE, HYDRODIURIL, NOVOLIN-R, PRINIVIL, MORPHINE, NITROSTAT, ZOFRAN HISTORY: 57 YEAR OLD MALE WITH COMPLAINTS OF CHEST PAIN. HISTORY OF DIABETES MELLITUS, HYPERTENSION, HYPERLIPIDEMIA, DENIES ALCOHOL USE OR SMOKING, REPORTS DRUG USE GREATER THAN TWENTY YEARS AGO. DENIES PREVIOUS HEART SURGERIES. PHYSICIAL EXAMINATION: RESTING B.P.: 145/87 RESTING H.R.: 58 RESTING EKG: NORMAL PROTOCOL: PHARMACOLOGIC EXERCISE TIME: 3:30 B.P. AT PEAK STRESS: 122/79 IMPRESSION: LEXISCAN INJECTED, CARDIOLITE GIVEN PER PROTOCOL. SEE NUCLEAR MEDICINE REPORT. DENIES CHEST PAIN OR SHORTNESS OF BREATH. COMPLIANTS OF NAUSEA, 4 mg ZOFRAN GIVEN. OCCASIONAL PREMATURE ATRIAL COMPLEXES NOTED. NO PREMATURE VENTRICULAR COMPLIANCE, SUPRAVENTRICULAR TACHYCARDIA, VENTRICULAR TACHYCARDIA NOTED.
== END 2023-03-01 11:29 | disposition home or self-care (01) | DRG 313 ==
LOC: ER 22:05 → ERHOLD 02-24 03:02 → 4TH 02-24 03:38 → OBSVTOIN 02-26 10:23
PROVIDERS: ADMIT Hospitalist; ATTEND Internal Medicine
DX: R07.89 Other chest pain (principal); Z68.41 Body mass index [BMI] 40.0-44.9, adult; E66.01 Morbid (severe) obesity due to excess calories; E11.9 Type 2 diabetes mellitus without complications; I10 Essential (primary) hypertension; E87.6 Hypokalemia; G47.30 Sleep apnea, unspecified; E78.00 Pure hypercholesterolemia, unspecified; I25.2 Old myocardial infarction; R53.1 Weakness; R29.810 Facial weakness; Z79.52 Long term (current) use of systemic steroids; Z79.82 Long term (current) use of aspirin; Z79.84 Long term (current) use of oral hypoglycemic drugs; Z79.899 Other long term (current) drug therapy
CPT/HCPCS: 36415; 71045; 78452; 80048; 80061; 80076; 82306; 82607; 82947; 83036; 83735; 83880; 84484; 85025; 85379; 85610; 93005; 93017; 93306; 94760; 96374; 96375; 99285; A9500; G0378; J0360; J1650; J2270; J2405; J2785

== ENCOUNTER 2023-05-23 20:18 | Emergency (ER) | payer OTHER ==
--- OUTSIDE RECORDS SUMMARY | 2023-05-23 20:29 | XMS REPORT | Continuity of Care Document ---
:1965 Author Organization [facility] Address [address] [facility] [address] [place] [id number] Care Team Providers Name Role Phone Philip Colby [facility] Primary Care P hysician DIANN SADLER Attending Clinician Unavailable MEEK LUCERO Attending Clinician Unavailable DOLORES MALIK Attending Clinician Unavailable PRADEEP VEGA Attending Clinician Unavailable MD DOMONIQUE Attending Clinician Unavailable SANDRA LOPEZ Attending Clinician Unavailable PL, TECH 1 Attending Clinician Unavailable ILIANA ANDRADE Attending Clinician Unavailable CATHY MONTOYA Attending Clinician Unavailable MELISSA VILLALPANDO Attending Clinician Unavailable DULCE LEE Attending Clinician Unavailable KAREN LOPEZ Attending Clinician Unavailable MARITO GARSIA Attending Clinician Unavailable DENIA DIAZ Attending Clinician Unavailable LAB90 Attending Clinician Unavailable ANTONIO ALEMAN Attending Clinician Unavailable Dwayne España Attending Clinician Payers Payer Name Policy Type Policy Number Effective Date Expiration Date Kathia delia [facility] 9 [id number] 2022 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 [id number] 2017 NON-CONTRACT 00:00:00 GENERIC Problems Condition Condition Condition Status Onset Resolution Last Treating Co mments Source Name Details Category Date Date Treatment Clinician Date Chronic Chronic Disease Active Lexy pain of pain of 9-14 Seybold both knees both knees 00:00: - 00 Externa l Acute Acute Disease Active Lexy bilateral bilateral 9-14 Seyb old low back low back 00:00: - pain pain 00 Externa without without l sciatica sciatica CASEY CASEY Disease Active Lexy (obstructi (obstructi 28 Se ybold ve sleep ve sleep 00:00: - apnea) apnea) 00 Externa l Prediabete Prediabete Disease Active Elizabeth gordon s [...] 00 Externa l Erectile Erectile Disease Active Jongse y dysfunctio dysfunctio 01-19 Se ybold n n 00:00: - 00 Externa l Snoring Snoring Disease Active Lexy 01-19 Seybold 00:00: - 00 Externa l Dyspnea on Dyspnea on Disease Active Elizabeth gordon exertion exertion 01-19 Seybol d 00:00: - [...] in adult adult Right-side Right-side Disease Active Elizabeth gordon 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 00:00: - 00 Externa l No known No known Disease Unive rs active active ity of problems problems [facility] Allergies, Adverse Reactions, Alerts Allergy Allergy Status Severity Reaction(s) Onset Inactive Treating Comm ents Source Name Type Date Date Clinician NO KNOWN Drug Active Univers ALLERGIE Class ity of S [facility] Social History Social Habit Start Date Stop Date Quantity Comments Source Exposure to Not sure University of SARS-CoV-2 (event) [facility] Gender identity Lexy bose - External Sexual orientation Lexy Oropeza - External Alcohol intake 2023-05-19 2023-05-19 Lifetime Lexy Velázquez bold - 00:00:00 00:00:00 non-drinker External (finding) Tobacco use and 2023-01-18 2023-01-18 Smokeless Lexy bose - exposure 00:00:00 00:00:00 tobacco non-user External History of Social 2023-01-18 2023-01-18 Lexy Oropeza - function 00:00:00 00:00:00 External Sex [birth year] At [birth year] Lexy bose - 00:00:00 00:00:00 External Smoking Status Start Date Stop Date Source Never smoked tobacco Lexy Garcia old - External Unknown if ever smoked [facility] Medications Ordered Filled Start Stop Current Ordering Indication Dosage Frequency Signature Comments Components Source Medication Medication Date Date Medication? Clinician (SIG) Name Name Diclofenac Yes [id number] 75mg Q.5D Take 1 Lexy Sodium 75 -14 tablet (75 Seyb old MG oral 00:00: mg total) - Tablet 00 by mouth 2 Externa Delayed times l Response daily as needed. Sildenafil Yes [id number] 100mg QD Take 1 Lexy Citrate 100 9-14 tablet Seybol d MG oral 00:00: (100 mg - Tablet 00 total) by Externa mouth l daily as needed. Ketoconazol Yes [id number] Apply to Lexy e 2 % apply 9-14 skin daily Se ybold externally 00:00: for 14 - Cream 00 days. Externa l Benzonatate Yes [id number] 100mg Q.[id number] Take 1 Lexy 100 MG oral 05-12 [id number] capsule Seybold Capsule 00:00: 3D (100 mg - 00 total) by Externa mouth 3 l times daily as needed for cough. Azithromyci 2022- No [id number] Take 2 Lexy n 250 MG 05-12-14 tablets by Seyb old oral Tablet 00:00: 00:00 mouth on - 00 :00 day 1 then Externa 1 tablet l by mouth daily for 4 days thereafter .. Benzonatate 2022- No [id number] 100mg Q.[id number] Take 1 Lexy 100 MG oral 05-12 [id number] capsule Seybold Capsule 00:00: 00:00 3D (100 mg - 00 :00 total) by Externa mouth 3 l times daily as needed for cough. Azithromyci 2022- Yes [id number] Take 2 Lexy n 250 MG 05-12 tablets by Seyb old oral Tablet 00:00: 04:59 mouth on 00 :00 day 1 then Externa 1 tablet l by mouth daily for 4 days thereafter .. LISINOPRIL- Yes [id number] 2{tbl} Take 2 Lexy HCTZ 8-01 tablets by Seybold 20-12.5 MG 00:00: mouth - oral Tablet 00 daily Externa l Sildenafil Yes [id number] 50mg QD Take 1 Lexy Citrate 50 8- tablet (50 Sey bold MG oral 00:00: mg total) - Tablet 00 by mouth Externa daily as l needed Carvedilol Yes [id number] 3.125mg Take 1 Lexy (Coreg) - tablet Seybold 3.125 MG 00:00: (3.125 mg - oral Tablet 00 total) by Ext panchito mouth in l the morning and 1 tablet (3.125 mg total) in the evening. Take with meals. LISINOPRIL- 0 Yes [id number] 2{tbl} Take 2 Lexy HCTZ 8-01 tablets by Seybold 20-12.5 MG 00:00: mouth - oral Tablet 00 daily Externa l Carvedilol 0 Yes [id number] 3.125mg Take 1 Lexy (Coreg) 8-01 tablet Seybold 3.125 MG 00:00: (3.125 mg - oral Tablet 00 total) by Ext panchito mouth in l the morning and 1 tablet (3.125 mg total) in the evening. Take with meals. Sildenafil 2022- No [id number] 50mg QD Take 1 Lexy Citrate 50 8-01 09-14 tablet (50 Se ybold MG oral 00:00: 00:00 mg total) - Tablet 00 :00 by mouth Externa daily as l needed TESTOSTERON Yes Inject Rosa M ey E CYPIONATE 7-28 into the Seyb old IM 09:04: muscle - 24 Externa l TESTOSTERON 0 Yes Inject Rosa M ey E CYPIONATE 7-28 into the Seyb old IM 09:04: muscle - 24 Externa l TESTOSTERON Yes Inject Rosa M ey E CYPIONATE 7-28 into the Seyb old IM 09:04: muscle - 24 Externa l Semaglutide Yes [id number] .25mg Inject Lexy -LENIN-Jarrod 7-28 104 0.25 mg Seybo ld ght 00:00: into the - Management 00 skin once Exte rna 0.25 a week l MG/0.5ML Subcutaneou s Solution Auto-inject or Ketoconazol Yes [id number] Apply to Lexy e 2 % apply 7-28 skin daily Se ybold externally 00:00: for 14 - Cream 00 days Externa l Ketoconazol 2022-0 Yes [id number] Apply to Lexy e 2 % apply 7-28 skin daily Se ybold externally 00:00: for 14 - Cream 00 days Externa l Ketoconazol 2022-0 2022- No [id number] Apply to Lexy e 2 % apply 7-28 09-14 skin daily S eybold externally 00:00: 00:00 for 14 - Cream 00 :00 days Externa l Atorvastati 0 Yes 40mg Take 1 Rosa M ey n Calcium 6-28 tablet (40 Seyb old 40 MG oral 00:00: mg total) - Tablet 00 by mouth Externa at bedtime l Atorvastati 2022-0 Yes 40mg Take 1 Rosa M ey n Calcium 6-28 tablet (40 Seyb old 40 MG oral 00:00: mg total) - Tablet 00 by mouth Externa at l bedtime. Atorvastati 2022-0 Yes 40mg Take 1 Rosa M ey n Calcium 6-28 tablet (40 Seyb old 40 MG oral 00:00: mg total) - Tablet 00 by mouth Externa at l bedtime. Sildenafil 2022-0 2023- No 50mg QD Take 1 Rosa M ey Citrate 50 5-31 05-31 tablet (50 Se ybold MG oral 12:01: 00:00 mg total) - Tablet 20 :00 by mouth Externa daily as l needed TESTOSTERON Yes Inject Rosa M ey E CYPIONATE 5-31 into the yb old IM 11:49: muscle - 44 Externa l Sildenafil 2022-0 Yes [id number] 50mg QD Take 1 Lexy Citrate 50 5-31 tablet (50 Sey bold MG oral 00:00: mg total) - Tablet 00 by mouth Externa daily as l needed Metformin 2022-0 Yes [id number] 500mg Take 1 Lexy HCl 500 MG 5-31 tablet Seybold oral Tablet 00:00: (500 mg - 00 total) by Externa mouth l daily (with breakfast) Sildenafil 2022-0 Yes [id number] 50mg QD Take 1 Lexy Citrate 50 5-31 tablet (50 Sey bold MG oral 00:00: mg total) - Tablet 00 by mouth Externa daily as l needed Metformin 2022-0 2022- No [id number] 500mg Take 1 Lexy HCl 500 MG 5-31 07-28 tablet Seybol d oral Tablet 00:00: 00:00 (500 mg - 00 :00 total) by Externa mouth l daily (with breakfast) TESTOSTERON Yes Inject Rosa M ey E CYPIONATE 5-30 into the yb old IM 14:17: muscle - 15 Externa l Sildenafil 2022-0 Yes 50mg QD Take 1 Kelse y Citrate 50 5-30 tablet (50 Sey bold MG oral 14:17: mg total) - Tablet 15 by mouth Externa daily as l needed Erythromyci 0 Yes [id number] 1cm Apply 1 cm Lexy n 5 MG/GM 5-30 [id number] to eye Seybol d ophthalmic 00:00: nightly - Ointment 00 Externa l Erythromyci 2022-0 Yes [id number] 1cm Apply 1 cm Lexy n 5 MG/GM 5-30 [id number] to eye Seybol d ophthalmic 00:00: nightly - Ointment 00 Externa l Erythromyci 2022-0 Yes [id number] 1cm Apply 1 cm Lexy n 5 MG/GM 5-30 [id number] to eye Seybol d ophthalmic 00:00: nightly - Ointment 00 Externa l Erythromyci 2022-0 Yes [id number] 1cm Apply 1 cm Lexy n 5 MG/GM 5-30 [id number] to eye Seybol d ophthalmic 00:00: nightly - Ointment 00 Externa l Erythromyci 2022-0 Yes [id number] 1cm Apply 1 cm Lexy n 5 MG/GM 5-30 [id number] to eye Seybol d ophthalmic 00:00: nightly - Ointment 00 Externa l [place]-3 Yes [id number] 1000mg Take 1 K elsey Fatty Acids 5-19 capsule Seybo ld (Fish Oil) 00:00: (1,000 mg - 1000 MG 00 total) by Externa oral mouth 2 l Capsule times daily [place]-3 Yes [id number] 1000mg Take 1 K elsey Fatty Acids 5-19 capsule Seybo ld (Fish Oil) 00:00: (1,000 mg - 1000 MG 00 total) by Externa oral mouth 2 l Capsule times daily [place]-3 0 Yes [id number] 1000mg Take 1 K elsey Fatty Acids 5-19 capsule Seybo ld (Fish Oil) 00:00: (1,000 mg - 1000 MG 00 total) by Externa oral mouth 2 l Capsule times daily [place]-3 Yes [id number] 1000mg Take 1 K elsey Fatty Acids 5-19 capsule Seybo ld (Fish Oil) 00:00: (1,000 mg - 1000 MG 00 total) by Externa oral mouth 2 l Capsule times daily [place]-3 0 Yes [id number] 1000mg Take 1 K elsey Fatty Acids 5-19 capsule Seybo ld (Fish Oil) 00:00: (1,000 mg - 1000 MG 00 total) by Externa oral mouth 2 l Capsule times daily Amlodipine 0 2022- No 10mg Take 1 Rosa M ey Besylate 10 5-17 05-17 tablet (10 S eybold MG oral 15:37: 00:00 mg total) - Tablet 25 :00 by mouth Externa daily l LISINOPRIL- 2022-0 2022- No 1{tbl} Take 1 K elsey HCTZ 20-25 5-17 05-17 tablet by Sey bold MG oral 15:30: 00:00 mouth - Tablet 51 :00 daily Externa l Valacyclovi 0 3- No 1000mg Take 1 K elsey r HCl 1 g 5-17 05-17 tablet Seybold oral Tablet 15:28: 00:00 (1,000 mg - 47 :00 total) by Externa mouth 2 l times daily TESTOSTERON 0 Yes Inject Rosa M ey E CYPIONATE 5-17 into the Seyb old IM 15:11: muscle - 45 Externa l Sildenafil 0 Yes 50mg QD Take 1 Kelse y Citrate 50 5-17 tablet (50 Sey bold MG oral 15:11: mg total) - Tablet 45 by mouth Externa daily as l needed LISINOPRIL- 0 Yes [id number] 2{tbl} Take 2 Lexy HCTZ 5-17 tablets by Seybold 20-12.5 MG 00:00: mouth - oral Tablet 00 daily Externa l Carvedilol 0 Yes [id number] 3.125mg Take 1 Lexy (Coreg) 5-17 tablet Seybold 3.125 MG 00:00: (3.125 mg - oral Tablet 00 total) by Ext panchito mouth in l the morning and 1 tablet (3.125 mg total) in the evening. Take with meals. LISINOPRIL- 0 Yes [id number] 2{tbl} Take 2 Lexy HCTZ 5-17 tablets by Seybold 20-12.5 MG 00:00: mouth - oral Tablet 00 daily Externa l Carvedilol 0 Yes [id number] 3.125mg Take 1 Lexy (Coreg) 5-17 tablet Seybold 3.125 MG 00:00: (3.125 mg - oral Tablet 00 total) by Ext panchito mouth in l the morning and 1 tablet (3.125 mg total) in the evening. Take with meals. LISINOPRIL- 2022-0 Yes [id number] 2{tbl} Take 2 Lexy HCTZ 5-17 tablets by Seybold 20-12.5 MG 00:00: mouth - oral Tablet 00 daily Externa l Carvedilol 0 Yes [id number] 3.125mg Take 1 Lexy (Coreg) 5-17 tablet Seybold 3.125 MG 00:00: (3.125 mg - oral Tablet 00 total) by Ext panchito mouth in l the morning and 1 tablet (3.125 mg total) in the evening. Take with meals. LISINOPRIL- 2022-0 Yes [id number] 2{tbl} Take 2 Lexy HCTZ 5-17 tablets by Seybold 20-12.5 MG 00:00: mouth - oral Tablet 00 daily Externa l Carvedilol 2022-0 Yes [id number] 3.125mg Take 1 Lexy (Coreg) 5-17 tablet [...] Viagra 50 2022-0 No 1mg mg tablet 5- 00:00: 00 Dose 2022-0 No Unknown 5-06 00:00: 00 Dose 2022-0 No Unknown 5- 00:00: 00 Dose 2022-0 No Unknown 5-06 00:00: 00 Viagra 50 2022-0 No 1mg mg tablet 5-06 00:00: 00 Dose 2022-0 No Unknown 5-06 00:00: 00 Dose 2022-0 No Unknown 5- 00:00: 00 Dose 2022-0 No Unknown 5-06 [...] 00 25 mg tablet Dose No Unknown 11 00:00: 00 lisinopril No [...] 30 mg 00 :00 1 dose, Medical [place] [facility] 05/17/21 at 1330, CONNIE
Fa culty [...] Restricted medication : DWAYNE [place] cyclobenzap Yes [id number] 10mg Take 1 Univers rine 10 mg 9-12 tablet by ity of tablet 00:00: mouth 3 [place] 00 (three) Medical times Branch daily as needed for Muscle Spasms. ibuprofen Yes [id number] 800mg Take 1 Univers 800 mg 9-12 tablet by ity of tablet 00:00: mouth [place] 00 every 6 Medical (six) Branch hours as needed for Pain (scale 4-6). cyclobenzap 2020-0 Yes [id number] 10mg Take 1 Univers rine 10 mg 9-12 tablet by ity of tablet 00:00: mouth 3 00 (three) Medical times Branch daily as needed for Muscle Spasms. ibuprofen 2020-0 Yes [id number] 800mg Take 1 Univers 800 mg 9-12 [...] 2021-0 No Unknown 4-07 00:00: 00 Dose 1-0 No Unknown 4-07 00:00: 00 Dose 1-0 No Unknown 4-07 00:00: 00 Dose 2021-0 No Unknown 4-07 00:00: 00 Dose 2021-0 No Unknown 4-07 00:00: 00 Dose 2021-0 No Unknown 4-07 00:00: 00 Dose 2021-0 No Unknown 4-07 00:00: 00 Dose 1-0 [...] vers (TESSALON 2-09 capsule by itsameer of [employer]) 100 00:00: mouth [place] mg capsule 00 [...] 0.1 mg 3-19 tablet 00:00: 00 lisinopril 0 No 1mg 10 3-12 mg-hydrochl 00:00: orothiazide 00 12.5 mg tablet lisinopril 0 No 1mg 10 3-12 mg-hydrochl 00:00: orothiazide 00 12.5 mg tablet lisinopril 0 No 1mg 10 3-12 mg-hydrochl 00:00: orothiazide 00 12.5 mg tablet lisinopril 0 No 1mg 10 3-12 mg-hydrochl 00:00: orothiazide 00 12.5 mg tablet Immunizations Ordered Immunization Filled Immunization Date Status Commen ts Source Name Name Influenza Virus 2023-04-23 Completed Lexy bose Vaccine, No Preserv, 00:00:00 - Ex ternal age 6 months and up Hep A/ Hep B Combo 2023-04-23 Completed Lexy Oropeza 00:00:00 - External Pneumococcal 2023-04-23 Completed Lexy Arzate ld Vaccine, Conjugate 00:00:00 - Exte rnal 20 Vital Signs Vital Name Observation Time Observation Value Comments Source Systolic blood 2023-05-19 20:41:00 140 mm[Hg] Lexy Oropeza - pressure External Diastolic blood 2023-05-19 20:41:00 90 mm[Hg] Renetta Oropeza - pressure External Heart rate 2023-05-19 20:26:00 84 /min Lexy maddox - External Body temperature 2023-05-19 20:26:00 36.61 Mulu Rosa M Oropeza - External Respiratory rate 2023-05-19 20:26:00 15 /min Rosa M Oropeza - External Body height 2023-05-19 20:26:00 170.2 cm Lexy maddox - External Body weight 2023-05-19 20:26:00 128.822 kg Lexy maddox - External BMI 2023-05-19 20:26:00 44.48 kg/m2 Lexy maddox - External Oxygen saturation in 2023-05-19 20:26:00 99 /min Lexy Oropeza - Arterial blood by External Pulse oximetry Systolic blood 2023-04-01 14:02:00 132 mm[Hg] Lexy Seybold - pressure External Diastolic blood 2023-04-01 14:02:00 84 mm[Hg] Jongse y Seybold - pressure External Heart rate 2023-04-01 14:02:00 79 /min Lexy S eybold - External Body temperature 2023-04-01 14:02:00 35.83 Mulu Rosa M ey Seybold - External Body height 2023-04-01 14:02:00 170.2 cm Lexy Bae eybold - External Body weight 2023-04-01 14:02:00 128.822 kg Lexy Bae eybold - External BMI 2023-04-01 14:02:00 44.48 kg/m2 Lexy Bae eybold - External Oxygen saturation in 2023-04-01 14:02:00 92 /min Lexy Garciaold - Arterial blood by External Pulse oximetry Systolic blood 2023-02-02 16:45:00 124 mm[Hg] Lexy Seybold - pressure External Diastolic blood 2023-02-02 16:45:00 80 mm[Hg] Jongse y Seybold - pressure External Heart rate 2023-02-02 16:45:00 73 /min Lexy S eybold - External Body temperature 2023-02-02 16:45:00 36.33 Mulu Rosa M ey Seybold - External Respiratory rate 2023-02-02 16:45:00 15 /min Rosa M ey Seybold - External Body height 2023-02-02 16:45:00 170.2 cm Lexy Bae eybold - External Body weight 2023-02-02 16:45:00 128.822 kg Lexy Bae eybold - External BMI 2023-02-02 16:45:00 44.48 kg/m2 Lexy S eybold - External Systolic blood 2023-01-19 20:10:00 148 mm[Hg] Lexy Seybold - pressure External Diastolic blood 2023-01-19 20:10:00 95 mm[Hg] Jongse y Seybold - pressure External Heart rate 2023-01-19 20:10:00 82 /min Lexy S eybold - External Body temperature 2023-01-19 20:10:00 36.5 Mulu Rosa M ey Seybold - External Respiratory rate 2023-01-19 20:10:00 19 /min Rosa M Oropeza - External Body height 2023-01-19 20:10:00 170.2 cm Lexy edwardsbosowmya - External Body weight 2023-01-19 20:10:00 127.914 kg Lexy edwardsbosowmya - External BMI 2023-01-19 20:10:00 44.17 kg/m2 Lexy edwardsbosowmya - External Systolic blood 2021-05-17 17:07:58 138 mm[Hg] [facility] Diastolic blood 2021-05-17 17:07:58 94 mm[Hg] [facility] Heart rate 2021-05-17 17:07:58 75 /min [facility] Body temperature 2021-05-17 17:07:58 36.94 [facility] 2021-05-17 17:07:58 17 /min [facility] Body height 2021-05-17 17:05:00 [facility] Body weight 2021-05-17 17:05:00 117.935 kg [facility] BMI 2021-05-17 17:05:00 40.72 kg/m2 [facility] Oxygen saturation in 2021-05-17 17:05:00 96 /min [facility] Arterial blood by [facility] Pulse oximetry Branch BP Systolic [...] SPINE 3 VW 2021-05-17 17:50:14 Dwayne Cleveland [facility] URINALYSIS 2021-05-17 17:37:00 Dwayne Cleveland [facility] CONSENT/REFUSAL FOR 2021-05-17 16:46:48 Doctor Unassigned, [facility] Name [facility] Branch TREATMENT Ekg 2018-08-16 00:00:00 85152 Ecg Routine Ecg 2017-10-11 00:00:00 W/least 12 Lds W/i r Plan of Care Planned Activity Planned Date Details Comments Source Goal Plan of Care Note [code = 86015-4] Goal Plan of Care Note [code = 93094-7] Goal Plan of Care Note [code = 94957-7] Goal Plan of Care Note [code = 92459-7] Goal Plan of Care Note [code = 38068-1] Goal Plan of Care Note [code = 42854-3] Goal Plan of Care Note [code = 59362-6] Goal Plan of Care Note [code = 75513-6] Goal Plan of Care Note [code = 19832-2] Goal Plan of Care Note [code = 28512-6] Goal Plan of Care Note [code = 47060-5] Goal Plan of Care Note [code = 38630-6] Goal Plan of Care Note [code = 03615-7] Goal Plan of Care Note [code = 80219-3] Goal Plan of Care Note [code = 49761-4] Goal Plan of Care Note [code = 74900-7] Goal Plan of Care Note [code = 52396-4] Goal Plan of Care Note [code = 46903-4] Goal Plan of Care Note [code = 72930-2] Goal Plan of Care Note [code = 33389-8] Goal Plan of Care Note [code = 16467-4] Goal Plan of Care Note [code = 82035-0] Goal Plan of Care Note [code = 62277-6] Goal Plan of Care Note [code = 18949-5] Goal Plan of Care Note [code = 81195-7] Goal Plan of Care Note [code = 19639-9] Goal Plan of Care Note [code = 59249-7] Goal Plan of Care Note [code = 12887-4] Goal Plan of Care Note [code = 44118-7] Goal Plan of Care Note [code = 97134-8] Goal Plan of Care Note [code = 15279-2] Goal Plan of Care Note [code = 43028-9] Goal Plan of Care Note [code = 43839-8] Goal Plan of Care Note [code = 49222-8] Goal Plan of Care Note [code = 65161-9] Goal Plan of Care Note [code = 08427-2] Goal Plan of Care Note [code = 04008-8] Goal Plan of Care Note [code = 68389-8] Goal Plan of Care Note [code = 43449-4] Goal Plan of Care Note [code = 17343-9] Goal Plan of Care Note [code = 75763-0] Goal Plan of Care Note [code = 36566-1] Goal Plan of Care Note [code = 02957-5] Goal Plan of Care Note [code = 07253-4] Goal Plan of Care Note [code = 42178-4] Goal Plan of Care Note [code = 78260-8] Goal Plan of Care Note [code = 10433-5] Goal Plan of Care Note [code = 05584-3] Goal Plan of Care Note [code = 44165-8] Goal Plan of Care Note [code = 00223-3] Goal Plan of Care Note [code = 67973-3] Goal Plan of Care Note [code = 13047-9] Goal Plan of Care Note [code = 88558-5] Goal Plan of Care Note [code = 33907-6] Goal Plan of Care Note [code = 65224-1] Goal Plan of Care Note [code = 33638-8] Goal Plan of Care Note [code = 40999-8] Goal Plan of Care Note [code = 41786-4] Goal Plan of Care Note [code = 89997-8] Goal Plan of Care Note [code = 77019-0] Goal Plan of Care Note [code = 30502-5] Goal Plan of Care Note [code = 50826-5] Goal Plan of Care Note [code = 21092-6] Goal Plan of Care Note [code = 17985-9] Goal Plan of Care Note [code = 04357-5] Goal Plan of Care Note [code = 18406-1] Goal Plan of Care Note [code = 09556-1] Goal Plan of Care Note [code = 28020-9] Goal Plan of Care Note [code = 40601-8] Goal Plan of Care Note [code = 92634-5] Goal Plan of Care Note [code = 30673-4] Goal Plan of Care Note [code = 28939-6] Goal Plan of Care Note [code = 48911-2] Goal Plan of Care Note [code = 76156-3] Goal Plan of Care Note [code = 04360-6] Goal Plan of Care Note [code = 94539-9] Goal Plan of Care Note [code = 60567-7] Goal Plan of Care Note [code = 27976-9] Goal Plan of Care Note [code = 21164-6] Goal Plan of Care Note [code = 07255-2] Goal Plan of Care Note [code = 75386-3] Goal Plan of Care Note [code = 01625-6] Goal Plan of Care Note [code = 88864-5] Goal Plan of Care Note [code = 16068-2] Goal Plan of Care Note [code = 54548-3] Goal Plan of Care Note [code = 38405-1] Goal Plan of Care Note [code = 00758-4] Goal Plan of Care Note [code = 97843-9] Goal Plan of Care Note [code = 31937-3] Goal Plan of Care Note [code = 24912-1] Goal Plan of Care Note [code = 59787-4] Goal Plan of Care Note [code = 28737-0] Goal Plan of Care Note [code = 71901-8] Encounters Start End Encounter Admission Attending Care Care Encounter Source Date/Time Date/Time Type Type Clinicians Facility Department ID 2023-06-16 2023-06-16 Outpatient LEXY SADLER [id number] Lexy 15:30:00 15:30:00 DIANN Seybol d 2023-05-23 2023-05-23 Outpatient LEXY LUCERO [id number] Lexy 00:00:00 00:00:00 MEEK deng 2023-05-19 2023-05-19 Outpatient LEXY SADLER [id number] Lexy 15:30:00 15:30:00 DIANN Seybol d 2023-05-12 2023-05-12 Outpatient LEXY MALIK [id number] Lexy 11:45:00 11:45:00 DOLORES Seybol d 2023-05-12 2023-05-12 Outpatient LEXY VEGA [id number] Lexy 00:00:00 00:00:00 PRADEEP Seybol d 2023-05-12 2023-05-12 Outpatient LEXY VEGA [id number] Lexy 00:00:00 00:00:00 PRADEEP Seybol d 2023-05-11 2023-05-11 Outpatient LEXY SADLER [id number] Lexy 00:00:00 00:00:00 DIANN Seybol d 2023-05-11 2023-05-11 Outpatient MARLA LEXY STAHL [id number] Lexy 00:00:00 00:00:00 MD FELICIANO Seybol d 2023-05-06 2023-05-06 Outpatient SFA SFA 023 Philip 15:28:00 15:28:00 [id number] F Codey 2023-05-05 2023-05-05 Outpatient LEXY SADLER [id number] Lexy 09:15:00 09:15:00 DIANN Seybol d 2023-04-26 2023-04-26 Outpatient SFA SFA 023 Philip 11:09:46 11:09:46 [id number] F Codey 2023-04-20 2023-04-20 Outpatient SFA SFA 023 Philip 14:13:32 14:13:32 [id number] F Codey 2023-04-20 2023-04-20 Outpatient LEXY SADLER [id number] Lexy 00:00:00 00:00:00 DIANN Seybol d 2023-04-18 2023-04-18 Outpatient MARLA LEXY STAHL [id number] Lexy 00:00:00 00:00:00 MD FELICIANO Seybol d 2023-04-18 2023-04-18 Outpatient LEXY VEGA [id number] Lexy 00:00:00 00:00:00 PRADEEP Seybol d 2023-04-14 2023-04-14 Outpatient LEXY VEGA [id number] Lexy 09:00:00 09:00:00 PRADEEP Seybol d 2023-04-11 2023-04-11 Outpatient SFA SFA 023 Philip 10:28:19 10:28:19 [id number] F Codey 2023-04-06 2023-04-06 Outpatient LEXY LOPEZ [id number] Lexy 09:00:00 09:00:00 SANDRA Seybol d 2023-04-05 2023-04-05 Outpatient PREZAKathia LEXY STAHL [id number] Lexy 00:00:00 00:00:00 DIANN Seybol d 2023-04-03 2023-04-03 Outpatient PREZAS LEXY STAHL [id number] Lexy 00:00:00 00:00:00 DIANN Seybol d 2023-04-01 2023-04-01 Outpatient PREZAS LEXY STAHL [id number] Lexy 09:00:00 09:00:00 DIANN Seybol d 2023-04-01 2023-04-01 Outpatient PREZASLEXY [id number] Lexy 00:00:00 00:00:00 DIANN Seybol d 2023-03-31 2023-03-31 Outpatient SFA SFA [id number] Philip 11:51:33 11:51:33 0727 F Codey 2023-03-24 2023-03-[address], TECH LEXY STAHL [id number] [place]y 10:30:00 10:30:00 Seybol d 2023-03-23 2023-03-[address], TECH LEXY STAHL [id number] Lexy 16:30:00 16:30:00 Seybol d 2023-03-23 2023-03-23 Outpatient MARLA STAHL [id number] Lexy 00:00:00 00:00:00 MD FELICIANO Seybol d 2023-03-23 2023-03-23 Outpatient LEXY SADLER [id number] Lexy 00:00:00 00:00:00 DIANN Seybol d 2023-03-18 2023-03-18 Outpatient SFA SFA [id number] Philip 16:14:23 16:14:23 0714 F Codey 2023-03-18 2023-03-18 Outpatient LEXY STAHL [id number] Lexy 10:20:00 10:20:00 Seybol d 2023-03-18 2023-03-18 Outpatient LEXY STAHL [id number] Lexy 10:15:00 10:15:00 Seybol d 2023-03-18 2023-03-18 Outpatient LEXY STAHL [id number] Lexy 10:10:00 10:10:00 Seybol d 2023-03-18 2023-03-18 Outpatient LEXYNELLA HERNANDEZSEY [id number] Lexy 10:05:00 10:05:00 Seybol d 2023-03-18 2023-03-18 Outpatient LEXYNELLA STAHL [id number] Lexy 10:00:00 10:00:00 Seybol d 2023-03-18 2023-03-18 Outpatient PRELEXY HARPER [id number] Lexy 00:00:00 00:00:00 DIANN Seybol d 2023-03-17 2023-03-[address], TECH LEXY STAHL [id number] Lexy 16:30:00 16:30:00 Seybol d 2023-03-11 2023-03-11 Outpatient MIRZAITEHRA LEXY STAHL [id number] Lexy 08:15:00 08:15:00 ILIANA ACEVEDO 2023-03-10 2023-03-10 Outpatient SFA SFA [id number] Philip 15:21:41 15:21:41 0706 F Ocdey 2023-03-10 2023-03-10 Outpatient LEXY STAHL [id number] Lexy 00:00:00 00:00:00 Seybol d 2023-03-03 2023-03-03 Outpatient DEL LEXY STAHL [id number] Lexy 10:00:00 10:00:00 Jose CHAPMAN 2023-03-02 2023-03-02 Outpatient LEXY VILLALPANDO [id number] Lexy 10:45:00 10:45:00 MELISSA bose 2023-03-02 2023-03-02 Outpatient LEXY VEGA [id number] Lexy 00:00:00 00:00:00 PRADEEP Seybol d 2023-03-02 2023-03-02 Outpatient LEXY STAHL [id number] Lexy 00:00:00 00:00:00 Seybol d 2023-03-02 2023-03-02 Outpatient MARLA STAHL [id number] Lexy 00:00:00 00:00:00 MD FELICIANO Seybol d 2023-03-01 2023-03-01 Outpatient [facility] 023 Philip 13:28:37 13:28:37 0627 F Codey 2023-03-01 2023-03-01 Outpatient MARLA LEXY STAHL [id number] Lexy 00:00:00 00:00:00 MD FELICIANO Seybol d 2023-02-28 2023-02-28 Outpatient LEXY STAHL [id number] Lexy 00:00:00 00:00:00 Seybol d 2023-02-24 2023-02-24 Outpatient LEXY LEE [id number] Lexy 10:00:00 10:00:00 ALI Seybol d 2023-02-24 2023-02-24 Outpatient LEXY STAHL [id number] Lexy 00:00:00 00:00:00 Seybol d 2023-02-22 2023-02-22 Outpatient [facility] 023 Philip 15:21:24 15:21:24 0620 F Codey 2023-02-15 2023-02-15 Outpatient LEXY LOPEZ [id number] Lexy 09:30:00 09:30:00 KAREN Seybol d 2023-02-03 2023-02-03 Outpatient LEXY GARSIA [id number] Lexy 15:20:00 15:20:00 MARITO Seybo ld 2023-02-02 2023-02-02 Outpatient LEXY SADLER [id number] Lexy 11:45:00 11:45:00 DIANN Seybol d 2023-02-02 2023-02-02 Outpatient MARLA STAHL [id number] Lexy 00:00:00 00:00:00 MD FELICIANO Seybol d 2023-02-02 2023-02-02 Outpatient LEXY SADLER [id number] Lexy 00:00:00 00:00:00 DIANN Seybol d 2023-02-02 2023-02-02 Outpatient LEXY SADLER [id number] Lexy 00:00:00 00:00:00 DIANN Seybol d 2023-02-01 2023-02-01 Outpatient DIAZ, LEXY STAHL [id number] Lexy 14:40:00 14:40:00 DENIA Seybol d 2023-01-22 2023-01-22 Outpatient SFA SFA [id number] Philip 10:22:15 10:22:15 0520 [facility] 2023-01-21 2023-01-21 Outpatient PRELEROY LEXY STAHL [id number] Lexy 00:00:00 00:00:00 DIANN Seybol d 2023-01-21 2023-01-21 Outpatient PREZAKathia LEXY STAHL [id number] Lexy 00:00:00 00:00:00 DIANN Seybol d 2023-01-20 2023-01-20 Outpatient PRELEROY LEXY STAHL [id number] Lexy 00:00:00 00:00:00 DIANN Seybol d 2023-01-19 2023-01-19 Outpatient LAB90 LEXY STAHL [id number] Lexy 15:55:00 15:55:00 Seybol d 2023-01-19 2023-01-19 Outpatient PREZAS LEXY STAHL [id number] Lexy 15:00:00 15:00:00 DIANN Seybol d 2022-12-30 2022-12-30 Outpatient SFA SFA 023 Philip 11:51:08 11:51:08 0427 [facility] 2022-12-21 2022-12-21 Outpatient SFA SFA 023 Philip 11:35:05 11:35:05 0418 [facility] 2022-11-29 2022-11-29 Outpatient SFA SFA [id number] Philip 10:35:36 10:35:36 0327 [facility] 2022-11-17 2022-11-17 Outpatient SFA SFA [id number] Philip 16:24:03 16:24:03 0315 F Elizabeth 2022-11-03 2022-11-03 Outpatient SFA SFA [id number] Philip 13:33:54 13:33:54 0301 [facility] 2022-11-01 2022-11-01 Outpatient SFA SFA Philip 11:06:48 11:06:48 0227 F Codey 2022-10-20 2022-10-20 Outpatient SFA SFA Philip 09:10:03 09:10:03 0215 F Codey 2022-10-19 2022-10-19 Outpatient ASHALEXY Linder LEXY [id number] Lexy 16:00:00 16:00:00 ANTONIO Seybol d 2022-10-15 2022-10-15 Outpatient LOVE LEXY STAHL [id number] Lexy 08:30:00 08:30:00 ANTONIO Seybol d 2022-08-02 2022-08-02 Outpatient SFA SFA Philip 09:56:02 09:56:02 1128 F Codey 2022-07-19 2022-07-19 Outpatient SFA SFA Philip 10:54:12 10:54:12 1114 F Codey 2022-07-12 2022-07-12 Outpatient SFA SFA Philip 13:01:10 13:01:10 1107 F Codey 2022-07-06 2022-07-06 Outpatient SFA SFA Philip 14:38:17 14:38:17 1101 F Codey 2022-07-06 2022-07-06 Outpatient [id number] 00:00:00 00:00:00 Visit 24f5-5lil 1b9-1nke-6 -1lz9-3xq bd6-2ad3ca [id number] 2022-06-29 2022-06-29 Outpatient SFA SFA Philip 11:06:43 11:06:43 1025 F Codey 2022-06-29 2022-06-29 Outpatient [id number]- [id number] 00:00:00 00:00:00 Visit 5j87-9xb7 t31-6ra4-6 -8803-d8e 803-d8eb86 i88874k2h 062b7a 2022-06-23 2022-06-23 Outpatient SFA SFA Philip 10:34:08 10:34:08 1019 F Codey 2022-06-23 2022-06-23 Outpatient [id number] [id number] 00:00:00 00:00:00 Visit 46l2-107f 5r9-644t-w -s474-f43 [id number] 0745-09-29 2022-06-03 Outpatient [facility] [id number] Damian Palacios 11:37:54 11:37:54 0929 F Codey 2022-05-27 2022-05-27 Outpatient [id number]- [id number] 6c 6gni89-4 00:00:00 00:00:00 Visit 6b6v-04e0 e7y-18p7-j -b26u-rlt 05a-ecbd1c [id number] 4855-09-12 2021-05-17 Emergency [place], RUST [id number] [facility] 12:20:00 13:32:00 Dwayne Murilloton 350.1.13.10 ity [facility] [id number] [facility] [id number] [place] [id number] [place] 2021-05-17 2021-05-17 Emergency X RUST ERT [id number] [facility] 11:46:00 11:46:00 ity [facility] Results Test Description Test Time Test Comments Results Result Comments Source TESTOSTERONE 2023-03-22 04:58:07 Test Item Value Reference Range Interpretation Comme nts TESTOSTERONE (test code = 2830) 757 NG/DL 300-890 UNLESS OTHERWISE INDICATED, ALL TESTING PERFORM ED AT [facility] [address] [place] [address] LABORATORY DIRE CTOR: AUGIE LUND M.D. C DMITRY NUMBER [id number] [place]. [id number] PSA, [id number] 04:57:49 Test Item Value Reference Range Interpretation Comments PSA, TOTAL 1.93 NG/ML See_Comment NOTE: Methodol ogy is Corazon (test code = Nakul Electroch emiluminescence 2606) Immunoassay tra ceable to WHO reference stand corrine 96/760. [Automated mess age] The system which generated this result transmitted ref erence range: <=4.00. The ref erence range was not used to int erpret this result as bandar l/abnormal. CBC W/AUTO DIFF WITH [id number] 03:27:34 Test Item Value Reference Range Interpretation Comments WBC (test code = 8.9 K/UL 3.5-11.0 1001) RBC (test code = 4.96 M/UL 4.50-6.10 1002) HEMOGLOBIN (test code 15.7 G/DL 13.5-17.0 = 1003) HEMATOCRIT (test code 49.0 % 40.0-51.0 = 1004) MCV (test code = 98.8 fL 80.0-99.0 1005) MCH (test code = 31.7 PG 25.0-33.0 1006) MCHC (test code = 32.0 G/DL 31.0-36.0 1007) RDW (test code = 14.9 % 11.5-15.0 1038) NEUTROPHILS (test 57.7 % code = 1008) LYMPHOCYTES (test 29.2 % code = 1010) MONOCYTES (test code 6.5 % = 1011) EOSINOPHILS (test 5.4 % code = 1012) BASOPHILS (test code 0.7 % = 1013) IMMATURE GRANULOCYTES 0.5 % (test code = 1036) NUCLEATED RBCS (test 0.0 /100 WBC'S See_Comment [Aut omated code = 1065) message] The sy stem which generated this result transmitted reference range : 0.0. The refere nce range was not u sed to interpret th is result as normal/abnormal . PLATELET COUNT (test 231 K/UL 130-400 code = 1015) ABSOLUTE NEUTROPHILS 5.13 K/UL 1.50-7.50 (test code = 1066) ABSOLUTE LYMPHOCYTES 2.59 K/UL 1.00-4.00 (test code = 1067) ABSOLUTE MONOCYTES 0.58 K/UL 0.20-1.00 (test code = 1068) ABSOLUTE EOSINOPHILS 0.48 K/UL 0.00-0.50 (test code = 1040) ABSOLUTE BASOPHILS 0.06 K/UL 0.00-0.20 (test code = 1069) ABS IMMATURE 0.04 K/UL 0.00-0.10 GRANULOCYTES (test code = 1020) ABS NUCLEATED RBCS 0.00 K/UL 0.00-0.11 (test code = 97704) LIPID [id number] 03:20:10 Test Item Value Reference Range Interpretation Comments CHOLESTEROL (test 188 MG/DL <200 code = 2210) TRIGLYCERIDES (test 134 MG/DL <150 code = 2232) HDL CHOLESTEROL (test 51 MG/DL >39 code = 2220) CALC LDL CHOL (test 112 MG/DL <100 H NOTE: C ALCULATED LDL code = 2237) IS BASED ON ARAVIND-CLAIRE METHOD WHICHINCLUDES ADJUSTABLE TRIGLYCERIDE:VL DL CHOLESTEROL RAT IO.THIS FACTOR VARIES B Y MEASURED TRIGLY CERIDE AND NON-HDLCHOL ESTEROL CONCENTRATIONS WITH INCREASED CALCU LATED LDL SEENIN HIGH ER TRIGLYCERIDE OR LOWER NON-HDL SPECIME NS. FOR MOREINFORMATION , SEE CLIENT ANNOUNCE MENT AT [email or web address] /[email or web address]-C RISK RATIO LDL/HDL 2.20 RATIO <3.55 (test code = 2238) [id number] 06:44:59 Test Item Value Reference Range Interpretation Comments TESTOSTERONE (test 181 NG/DL 300-890 L UNLESS O THERWISE code = 2830) INDICATED, ALL TESTING PERFORMED [facility], [id number] [place] [address] DIRECTOR: DIAMOND ODELL M.D. CLIA NUMBER [id number] CAP ACCREDITATION N O. [id number] 00:00:00 Test Item Value Reference Range Interpretation Comments TESTOSTERONE (test code = 2830) 181 NG/DL [id number] 00:00:00 Test Item Value Reference Range Interpretation Comments TESTOSTERONE (test code = 2830) 181 NG/DL TSH, THIRD [id number] 06:46:28 Test Item Value Reference Range Interpretation Comments TSH, THIRD GENERATION (test code 2.570 UIU/ML 0.400-4.100 = 2821) SEDIMENTATION [id number] 06:44:10 Test Item Value Reference Range Interpretation Comments SEDIMENTATION RATE (test code = 16 MM/HOUR 0-15 H 1017) [id number] 05:48:38 Test Item Value Reference Range Interpretation Comments TESTOSTERONE (test code = 2830) 173 NG/DL 300-890 L C-REACTIVE [id number] 05:06:35 Test Item Value Reference Range Interpretation Comments C-REACTIVE PROTEIN (test code = 0.7 MG/DL <0.5 H 3513) [id number] 04:49:21 Test Item Value Reference Range Interpretation Comments CREATININE (test 1.07 MG/DL 0.80-1.40 code = 2214) eGFR (2020 CKD-EPI) 81 ML/MIN/1.73 >60 UNLES S OTHERWISE (test code = 15204) INDICATE D, ALL TESTING PERFORM ED [facility] [place] [place] [address] [facility] DIRECTOR: Marizol DEVINEIA NUMBER [id number] CAP ACCREDITATION N O. [id number] CBC W/AUTO DIFF WITH [id number] 04:05:47 Test Item Value Reference Range Interpretation [...] RBCS 0.00 K/UL 0.00-0.11 (test code = 12317) CBC W/AUTO [id number] 00:00:00 Test Item Value Reference Range Interpretation [...] NUCLEATED RBCS (test code = 0.00 K/UL 15200) CBC W/AUTO [id number] 00:00:00 Test Item Value Reference Range Interpretation [...] NUCLEATED RBCS (test code = 0.00 K/UL 60074) CBC W/AUTO [id number] 00:00:00 Test Item Value Reference Range Interpretation [...] NUCLEATED RBCS (test code = 0.00 K/UL 40951) [id number] 00:00:00 Test Item Value Reference Range Interpretation Comments TESTOSTERONE (test code = 2830) 173 NG/DL [id number] 00:00:00 Test Item Value Reference Range Interpretation Comments TESTOSTERONE (test code = 2830) 173 NG/DL TSH, THIRD [id number] 00:00:00 Test Item Value Reference Range Interpretation Comments TSH, THIRD GENERATION (test code 2.570 UIU/ML = 2821) TSH, THIRD [id number] 00:00:00 Test Item Value Reference Range Interpretation Comments TSH, THIRD GENERATION (test code 2.570 UIU/ML = 2821) TSH, THIRD [id number] 00:00:00 Test Item Value Reference Range Interpretation Comments TSH, THIRD GENERATION (test code 2.570 UIU/ML = 2821) SEDIMENTATION [id number] 00:00:00 Test Item Value Reference Range Interpretation Comments SEDIMENTATION RATE (test code = 16 MM/HOUR 1017) SEDIMENTATION [id number] 00:00:00 Test Item Value Reference Range Interpretation Comments SEDIMENTATION RATE (test code = 16 MM/HOUR 1017) C-REACTIVE [id number] 00:00:00 Test Item Value Reference Range Interpretation Comments C-REACTIVE PROTEIN (test code = 0.7 MG/DL 3513) C-REACTIVE [id number] 00:00:00 Test Item Value Reference Range Interpretation Comments C-REACTIVE PROTEIN (test code = 0.7 MG/DL 3513) [id number] 00:00:00 Test Item Value Reference Range Interpretation Comments CREATININE (test code = 2214) 1.07 MG/DL eGFR (2020 CKD-EPI) (test code 81 ML/MIN/1.73 = 03441) [id number] 00:00:00 Test Item Value Reference Range Interpretation Comments CREATININE (test code = 2214) 1.07 MG/DL eGFR (2020 CKD-EPI) (test code 81 ML/MIN/1.73 = 19039) CBC W/AUTO [id number] 00:00:00 Test Item Value Reference Range Interpretation [...] NUCLEATED RBCS (test code = 0.00 K/UL 26902) CBC W/AUTO [id number] 00:00:00 Test Item Value Reference Range Interpretation [...] NUCLEATED RBCS (test code = 0.00 K/UL 01981) CBC W/AUTO [id number] 00:00:00 Test Item Value Reference Range Interpretation [...] NUCLEATED RBCS (test code = 0.00 K/UL 89387) [id number] 00:00:00 Test Item Value Reference Range Interpretation Comments TESTOSTERONE (test code = 2830) 173 NG/DL [id number] 00:00:00 Test Item Value Reference Range Interpretation Comments TESTOSTERONE (test code = 2830) 173 NG/DL TSH, THIRD [id number] 00:00:00 Test Item Value Reference Range Interpretation Comments TSH, THIRD GENERATION (test code 2.570 UIU/ML = 2821) TSH, THIRD [id number] 00:00:00 Test Item Value Reference Range Interpretation Comments TSH, THIRD GENERATION (test code 2.570 UIU/ML = 2821) TSH, THIRD [id number] 00:00:00 Test Item Value Reference Range Interpretation Comments TSH, THIRD GENERATION (test code 2.570 UIU/ML = 2821) SEDIMENTATION [id number] 00:00:00 Test Item Value Reference Range Interpretation Comments SEDIMENTATION RATE (test code = 16 MM/HOUR 1017) SEDIMENTATION [id number] 00:00:00 Test Item Value Reference Range Interpretation Comments SEDIMENTATION RATE (test code = 16 MM/HOUR 1017) C-REACTIVE [id number] 00:00:00 Test Item Value Reference Range Interpretation Comments C-REACTIVE PROTEIN (test code = 0.7 MG/DL 3513) C-REACTIVE [id number] 00:00:00 Test Item Value Reference Range Interpretation Comments C-REACTIVE PROTEIN (test code = 0.7 MG/DL 3513) [id number] 00:00:00 Test Item Value Reference Range Interpretation Comments CREATININE (test code = 2214) 1.07 MG/DL eGFR (2020 CKD-EPI) (test code 81 ML/MIN/1.73 = 65430) [id number] 00:00:00 Test Item Value Reference Range Interpretation Comments CREATININE (test code = 2214) 1.07 MG/DL eGFR (2020 CKD-EPI) (test code 81 ML/MIN/1.73 = 58709) CBC W/AUTO [id number] 00:00:00 Test Item Value Reference Range Interpretation [...] NUCLEATED RBCS (test code = 0.00 K/UL 96492) CBC W/AUTO [id number] 00:00:00 Test Item Value Reference Range Interpretation [...] NUCLEATED RBCS (test code = 0.00 K/UL 29766) CBC W/AUTO [id number] 00:00:00 Test Item Value Reference Range Interpretation [...] NUCLEATED RBCS (test code = 0.00 K/UL 12101) [id number] 00:00:00 Test Item Value Reference Range Interpretation Comments TESTOSTERONE (test code = 2830) 173 NG/DL [id number] 00:00:00 Test Item Value Reference Range Interpretation Comments TESTOSTERONE (test code = 2830) 173 NG/DL TSH, THIRD [id number] 00:00:00 Test Item Value Reference Range Interpretation Comments TSH, THIRD GENERATION (test code 2.570 UIU/ML = 2821) TSH, THIRD [id number] 00:00:00 Test Item Value Reference Range Interpretation Comments TSH, THIRD GENERATION (test code 2.570 UIU/ML = 2821) TSH, THIRD [id number] 00:00:00 Test Item Value Reference Range Interpretation Comments TSH, THIRD GENERATION (test code 2.570 UIU/ML = 2821) SEDIMENTATION [id number] 00:00:00 Test Item Value Reference Range Interpretation Comments SEDIMENTATION RATE (test code = 16 MM/HOUR 1017) SEDIMENTATION [id number] 00:00:00 Test Item Value Reference Range Interpretation Comments SEDIMENTATION RATE (test code = 16 MM/HOUR 1017) C-REACTIVE [id number] 00:00:00 Test Item Value Reference Range Interpretation Comments C-REACTIVE PROTEIN (test code = 0.7 MG/DL 3513) C-REACTIVE [id number] 00:00:00 Test Item Value Reference Range Interpretation Comments C-REACTIVE PROTEIN (test code = 0.7 MG/DL 3513) [id number] 00:00:00 Test Item Value Reference Range Interpretation Comments CREATININE (test code = 2214) 1.07 MG/DL eGFR (2020 CKD-EPI) (test code 81 ML/MIN/1.73 = 61581) [id number] 00:00:00 Test Item Value Reference Range Interpretation Comments CREATININE (test code = 2214) 1.07 MG/DL eGFR (2020 CKD-EPI) (test code 81 ML/MIN/1.73 = 71827) HEMOGLOBIN [id number] 10:19:29 Test Item Value Reference Range Interpretation Comments HEMOGLOBIN A1c (test code = 61288) 5.9 % 4.2-5.6 H COMPREHENSIVE METABOLIC [id number] 04:39:34 Test Item Value Reference Range Interpretation Comments GLUCOSE (test code = 126 MG/DL 70-99 H 2216) BUN (test code = 20 MG/DL 6-20 2207) CREATININE (test 1.12 MG/DL 0.80-1.40 code = 2214) eGFR (2020 CKD-EPI) 77 ML/MIN/1.73 >60 (test code = 64094) CALC BUN/CREAT (test 18 RATIO 03-02 code = 2235) SODIUM (test code = 141 MEQ/L 551-090 5331) POTASSIUM (test code 3.8 MEQ/L 3.5-5.4 = 2227) CHLORIDE (test code 102 MEQ/L 95-107 = 2214) CARBON DIOXIDE (test 27 MEQ/L 19-31 code = 220) CALCIUM (test code = 10.0 MG/DL 8.5-10.5 2208) PROTEIN, TOTAL (test 7.1 G/DL 6.1-8.3 code = 222) ALBUMIN (test code = 4.2 G/DL 3.5-5.2 [...] 2204) AST (test code = 24 U/L 9-50 2217) ALT (test code = 42 U/L 5-50 2218) LIPID [id number] 04:39:34 Test Item Value Reference Range Interpretation [...] MOREINFORMATION , SEE CLIENT ANNOUNCE MENT AT [email or web address]-[email or web address] RISK RATIO LDL/HDL 3.35 RATIO <3.55 UNLESS O THERWISE (test code = 2238) INDICATED , ALL TESTING PERFORMED [facility], [facility] [address] [place] [id number] [place] [address] DIRECTOR: Marizol DEVINEIA NUMBER [id number] CAP ACCREDITATION N O. [id number] COMPREHENSIVE METABOLIC [id number] 00:00:00 Test Item Value Reference Range Interpretation Comments GLUCOSE (test code = 2217) 126 MG/DL BUN (test code = 2208) 20 MG/DL CREATININE (test code = 2214) 1.12 MG/DL eGFR (2020 CKD-EPI) (test code 77 ML/MIN/1.73 = 63925) CALC BUN/CREAT (test code = 18 RATIO [...] code = 2219) 42 U/L COMPREHENSIVE METABOLIC [id number] 00:00:00 Test Item Value Reference Range Interpretation Comments GLUCOSE (test code = 2217) 126 MG/DL BUN (test code = 2208) 20 MG/DL CREATININE (test code = 2214) 1.12 MG/DL eGFR (2020 CKD-EPI) (test code 77 ML/MIN/1.73 = 31793) CALC BUN/CREAT (test code = 18 RATIO [...] (test code = 2219) 42 U/L HEMOGLOBIN [id number] 00:00:00 Test Item Value Reference Range Interpretation Comments HEMOGLOBIN A1c (test code = 93599) 5.9 % HEMOGLOBIN [id number] 00:00:00 Test Item Value Reference Range Interpretation Comments HEMOGLOBIN A1c (test code = 26702) 5.9 % HEMOGLOBIN [id number] 00:00:00 Test Item Value Reference Range Interpretation Comments HEMOGLOBIN A1c (test code = 24658) 5.9 % LIPID [id number] 00:00:00 Test Item Value Reference Range Interpretation Comments CHOLESTEROL (test code = 2210) 246 MG/DL TRIGLYCERIDES (test code = 2232) 209 MG/DL HDL CHOLESTEROL (test code = 2220) 48 MG/DL CALC LDL CHOL (test code = 2237) 161 MG/DL RISK RATIO LDL/HDL (test code = 3.35 RATIO 8) LIPID [id number] 00:00:00 Test Item Value Reference Range Interpretation Comments CHOLESTEROL (test code = 2210) 246 MG/DL TRIGLYCERIDES (test code = 2232) 209 MG/DL HDL CHOLESTEROL (test code = 2220) 48 MG/DL CALC LDL CHOL (test code = 2237) 161 MG/DL RISK RATIO LDL/HDL (test code = 3.35 RATIO 2238) COMPREHENSIVE METABOLIC [id number] 00:00:00 Test Item Value Reference Range Interpretation Comments GLUCOSE (test code = 2217) 126 MG/DL BUN (test code = 2208) 20 MG/DL CREATININE (test code = 2214) 1.12 MG/DL eGFR (2020 CKD-EPI) (test code 77 ML/MIN/1.73 = 74805) CALC BUN/CREAT (test code = 18 RATIO [...] code = 2219) 42 U/L COMPREHENSIVE METABOLIC [id number] 00:00:00 Test Item Value Reference Range Interpretation Comments GLUCOSE (test code = 2217) 126 MG/DL BUN (test code = 2208) 20 MG/DL CREATININE (test code = 2214) 1.12 MG/DL eGFR (2020 CKD-EPI) (test code 77 ML/MIN/1.73 = 80837) CALC BUN/CREAT (test code = 18 RATIO [...] (test code = 2219) 42 U/L HEMOGLOBIN [id number] 00:00:00 Test Item Value Reference Range Interpretation Comments HEMOGLOBIN A1c (test code = 59434) 5.9 % HEMOGLOBIN [id number] 00:00:00 Test Item Value Reference Range Interpretation Comments HEMOGLOBIN A1c (test code = 19135) 5.9 % HEMOGLOBIN [id number] 00:00:00 Test Item Value Reference Range Interpretation Comments HEMOGLOBIN A1c (test code = 52497) 5.9 % LIPID [id number] 00:00:00 Test Item Value Reference Range Interpretation Comments CHOLESTEROL (test code = 2210) 246 MG/DL TRIGLYCERIDES (test code = 2232) 209 MG/DL HDL CHOLESTEROL (test code = 2220) 48 MG/DL CALC LDL CHOL (test code = 2237) 161 MG/DL RISK RATIO LDL/HDL (test code = 3.35 RATIO 2238) LIPID [id number] 00:00:00 Test Item Value Reference Range Interpretation Comments CHOLESTEROL (test code = 2210) 246 MG/DL TRIGLYCERIDES (test code = 2232) 209 MG/DL HDL CHOLESTEROL (test code = 2220) 48 MG/DL CALC LDL CHOL (test code = 2237) 161 MG/DL RISK RATIO LDL/HDL (test code = 3.35 RATIO 2238) COMPREHENSIVE METABOLIC [id number] 00:00:00 Test Item Value Reference Range Interpretation Comments GLUCOSE (test code = 2217) 126 MG/DL BUN (test code = 2208) 20 MG/DL CREATININE (test code = 2214) 1.12 MG/DL eGFR (2020 CKD-EPI) (test code 77 ML/MIN/1.73 = 79958) CALC BUN/CREAT (test code = 18 RATIO 2235) SODIUM (test code = 2231) 141 MEQ/L POTASSIUM (test code = 2228) 3.8 MEQ/L CHLORIDE (test code = 2215) 102 MEQ/L CARBON DIOXIDE (test code = 27 MEQ/L 2206) CALCIUM (test code = 2209) 10.0 MG/DL PROTEIN, TOTAL (test code = 7.1 G/DL 222) ALBUMIN (test code = 2201) 4.2 G/DL CALC GLOBULIN (test code = 2.9 G/DL 2240) CALC A/G RATIO (test code = 1.4 RATIO 2234) BILIRUBIN, TOTAL (test code = 0.4 MG/DL 2206) ALKALINE PHOSPHATASE (test 101 U/L code = 2204) AST (test code = 2218) 24 U/L ALT (test code = 2219) 42 U/L COMPREHENSIVE METABOLIC [id number] 00:00:00 Test Item Value Reference Range Interpretation Comments GLUCOSE (test code = 2217) 126 MG/DL BUN (test code = 2208) 20 MG/DL CREATININE (test code = 2214) 1.12 MG/DL eGFR (2020 CKD-EPI) (test code 77 ML/MIN/1.73 = 77812) CALC BUN/CREAT (test code = 18 RATIO [...] (test code = 2219) 42 U/L HEMOGLOBIN [id number] 00:00:00 Test Item Value Reference Range Interpretation Comments HEMOGLOBIN A1c (test code = 54422) 5.9 % HEMOGLOBIN [id number] 00:00:00 Test Item Value Reference Range Interpretation Comments HEMOGLOBIN A1c (test code = 02859) 5.9 % HEMOGLOBIN [id number] 00:00:00 Test Item Value Reference Range Interpretation Comments HEMOGLOBIN A1c (test code = 94891) 5.9 % LIPID [id number] 00:00:00 Test Item Value Reference Range Interpretation Comments CHOLESTEROL (test code = 2210) 246 MG/DL TRIGLYCERIDES (test code = 2232) 209 MG/DL HDL CHOLESTEROL (test code = 2220) 48 MG/DL CALC LDL CHOL (test code = 2237) 161 MG/DL RISK RATIO LDL/HDL (test code = 3.35 RATIO 2238) LIPID [id number] 00:00:00 Test Item Value Reference Range Interpretation Comments CHOLESTEROL (test code = 2210) 246 MG/DL TRIGLYCERIDES (test code = 2232) 209 MG/DL HDL CHOLESTEROL (test code = 2220) 48 MG/DL CALC LDL CHOL (test code = 2237) 161 MG/DL RISK RATIO LDL/HDL (test code = 3.35 RATIO 2238) HEMOGLOBIN [id number] 05:30:45 Test Item Value Reference Range Interpretation Comments HEMOGLOBIN A1c (test 6.2 % 4.2-5.6 H UNLESS OTHERWISE code = 70814) INDICATED, ALL TESTING PERFORMED [facility] [address] [place] [address] DIRECTOR: DIAMOND ODELL M.D. CLIA NUMBER [id number] CAP ACCREDITATION N O. [id number] COMPREHENSIVE METABOLIC [id number] 04:18:35 Test Item Value Reference Range Interpretation Comments GLUCOSE (test code = 167 MG/DL 70-99 H 2216) BUN (test code = 21 MG/DL 6-20 H 2207) CREATININE (test 1.18 MG/DL 0.80-1.40 code = 2214) eGFR (2020 CKD-EPI) 72 ML/MIN/1.73 >60 (test code = 08131) CALC BUN/CREAT (test 18 RATIO 6-28 code = 2235) SODIUM (test code = 139 MEQ/L 258-073 7647) POTASSIUM (test code 4.3 MEQ/L 3.5-5.4 = [...] code = 32 U/L 5-50 2218) LIPID [id number] 04:18:35 Test Item Value Reference Range Interpretation [...] MOREINFORMATION , SEE CLIENT ANNOUNCE MENT AT [email or web address] RISK RATIO LDL/HDL 2.96 RATIO <3.55 (test code = 2238) COMPREHENSIVE METABOLIC [id number] 00:00:00 Test Item Value Reference Range Interpretation Comments GLUCOSE (test code = 2217) 167 MG/DL BUN (test code = 2208) 21 MG/DL CREATININE (test code = 2214) 1.18 MG/DL eGFR (2020 CKD-EPI) (test code 72 ML/MIN/1.73 = 02729) CALC BUN/CREAT (test code = 18 RATIO [...] code = 2219) 32 U/L COMPREHENSIVE METABOLIC [id number] 00:00:00 Test Item Value Reference Range Interpretation Comments GLUCOSE (test code = 2217) 167 MG/DL BUN (test code = 2208) 21 MG/DL CREATININE (test code = 2214) 1.18 MG/DL eGFR (2020 CKD-EPI) (test code 72 ML/MIN/1.73 = 80867) CALC BUN/CREAT (test code = 18 RATIO [...] (test code = 2219) 32 U/L LIPID [id number] 00:00:00 Test Item Value Reference Range Interpretation Comments CHOLESTEROL (test code = 2210) 240 MG/DL TRIGLYCERIDES (test code = 2232) 160 MG/DL HDL CHOLESTEROL (test code = 2220) 53 MG/DL CALC LDL CHOL (test code = 2237) 157 MG/DL RISK RATIO LDL/HDL (test code = 2.96 RATIO 2238) LIPID [id number] 00:00:00 Test Item Value Reference Range Interpretation Comments CHOLESTEROL (test code = 2210) 240 MG/DL TRIGLYCERIDES (test code = 2232) 160 MG/DL HDL CHOLESTEROL (test code = 2220) 53 MG/DL CALC LDL CHOL (test code = 2237) 157 MG/DL RISK RATIO LDL/HDL (test code = 2.96 RATIO 2238) 2708 HEMOGLOBIN [id number] 00:00:00 Test Item Value Reference Range Interpretation Comments HEMOGLOBIN A1c (test code = 93694) 6.2 % 2708 HEMOGLOBIN [id number] 00:00:00 Test Item Value Reference Range Interpretation Comments HEMOGLOBIN A1c (test code = 99188) 6.2 % 2708 HEMOGLOBIN [id number] 00:00:00 Test Item Value Reference Range Interpretation Comments HEMOGLOBIN A1c (test code = 02972) 6.2 % COMPREHENSIVE METABOLIC [id number] 00:00:00 Test Item Value Reference Range Interpretation Comments GLUCOSE (test code = 2217) 167 MG/DL BUN (test code = 2208) 21 MG/DL CREATININE (test code = 2214) 1.18 MG/DL eGFR (2020 CKD-EPI) (test code 72 ML/MIN/1.73 = 54065) CALC BUN/CREAT (test code = 18 RATIO [...] CALC GLOBULIN (test code = 3.3 G/DL 0) CALC A/G RATIO (test code = 1.2 RATIO 4) BILIRUBIN, TOTAL (test code = 0.5 MG/DL 2206) ALKALINE PHOSPHATASE (test 124 U/L code = 2204) AST (test code = 2218) 17 U/L ALT (test code = 2219) 32 U/L COMPREHENSIVE METABOLIC [id number] 00:00:00 Test Item Value Reference Range Interpretation Comments GLUCOSE (test code = 2217) 167 MG/DL BUN (test code = 2208) 21 MG/DL CREATININE (test code = 2214) 1.18 MG/DL eGFR (2020 CKD-EPI) (test code 72 ML/MIN/1.73 = 18987) CALC BUN/CREAT (test code = 18 RATIO 2235) SODIUM (test code = 2231) 139 MEQ/L POTASSIUM (test code = 2228) 4.3 MEQ/L CHLORIDE (test code = 2215) 100 MEQ/L CARBON DIOXIDE (test code = 29 MEQ/L 2205) CALCIUM (test code = 2209) 9.7 MG/DL PROTEIN, TOTAL (test code = 7.4 G/DL 2228) ALBUMIN (test code = 220) 4.1 G/DL CALC GLOBULIN (test code = 3.3 G/DL 2239) CALC A/G RATIO (test code = 1.2 RATIO 2233) BILIRUBIN, TOTAL (test code = 0.5 MG/DL 2206) ALKALINE PHOSPHATASE (test 124 U/L code = 2204) AST (test code = 2218) 17 U/L ALT (test code = 2219) 32 U/L LIPID [id number] 00:00:00 Test Item Value Reference Range Interpretation Comments CHOLESTEROL (test code = 2210) 240 MG/DL TRIGLYCERIDES (test code = 2232) 160 MG/DL HDL CHOLESTEROL (test code = 2220) 53 MG/DL CALC LDL CHOL (test code = 2237) 157 MG/DL RISK RATIO LDL/HDL (test code = 2.96 RATIO 2238) LIPID [id number] 00:00:00 Test Item Value Reference Range Interpretation Comments CHOLESTEROL (test code = 2210) 240 MG/DL TRIGLYCERIDES (test code = 2232) 160 MG/DL HDL CHOLESTEROL (test code = 2220) 53 MG/DL CALC LDL CHOL (test code = 2237) 157 MG/DL RISK RATIO LDL/HDL (test code = 2.96 RATIO 2238) 2708 HEMOGLOBIN [id number] 00:00:00 Test Item Value Reference Range Interpretation Comments HEMOGLOBIN A1c (test code = 26147) 6.2 % 2708 HEMOGLOBIN [id number] 00:00:00 Test Item Value Reference Range Interpretation Comments HEMOGLOBIN A1c (test code = 13101) 6.2 % 2708 HEMOGLOBIN [id number] 00:00:00 Test Item Value Reference Range Interpretation Comments HEMOGLOBIN A1c (test code = 66736) 6.2 % COMPREHENSIVE METABOLIC [id number] 00:00:00 Test Item Value Reference Range Interpretation Comments GLUCOSE (test code = 2217) 167 MG/DL BUN (test code = 2208) 21 MG/DL CREATININE (test code = 2214) 1.18 MG/DL eGFR (2020 CKD-EPI) (test code 72 ML/MIN/1.73 = 36299) CALC BUN/CREAT (test code = 18 RATIO [...] code = 2219) 32 U/L COMPREHENSIVE METABOLIC [id number] 00:00:00 Test Item Value Reference Range Interpretation Comments GLUCOSE (test code = 2217) 167 MG/DL BUN (test code = 2208) 21 MG/DL CREATININE (test code = 2214) 1.18 MG/DL eGFR (2020 CKD-EPI) (test code 72 ML/MIN/1.73 = 40168) CALC BUN/CREAT (test code = 18 RATIO [...] = 0.5 MG/DL 2207) ALKALINE PHOSPHATASE (test 124 U/L code = 2204) AST (test code = 2218) 17 U/L ALT (test code = 2219) 32 U/L COMPREHENSIVE METABOLIC [id number] 00:00:00 Test Item Value Reference Range Interpretation Comments GLUCOSE (test code = 2217) 167 MG/DL BUN (test code = 2208) 21 MG/DL CREATININE (test code = 2214) 1.18 MG/DL eGFR (2020 CKD-EPI) (test code 72 ML/MIN/1.73 = 58420) CALC BUN/CREAT (test code = 18 RATIO [...] BILIRUBIN, TOTAL (test code = 0.5 MG/DL 7) ALKALINE PHOSPHATASE (test 124 U/L code = 2204) AST (test code = 2218) 17 U/L ALT (test code = 2219) 32 U/L LIPID [id number] 00:00:00 Test Item Value Reference Range Interpretation Comments CHOLESTEROL (test code = 2210) 240 MG/DL TRIGLYCERIDES (test code = 2232) 160 MG/DL HDL CHOLESTEROL (test code = 2220) 53 MG/DL CALC LDL CHOL (test code = 2237) 157 MG/DL RISK RATIO LDL/HDL (test code = 2.96 RATIO 2238) LIPID [id number] 00:00:00 Test Item Value Reference Range Interpretation Comments CHOLESTEROL (test code = 2210) 240 MG/DL TRIGLYCERIDES (test code = 2232) 160 MG/DL HDL CHOLESTEROL (test code = 2220) 53 MG/DL CALC LDL CHOL (test code = 2237) 157 MG/DL RISK RATIO LDL/HDL (test code = 2.96 RATIO 2238) 2708 HEMOGLOBIN [id number] 00:00:00 Test Item Value Reference Range Interpretation Comments HEMOGLOBIN A1c (test code = 95995) 6.2 % 2708 HEMOGLOBIN [id number] 00:00:00 Test Item Value Reference Range Interpretation Comments HEMOGLOBIN A1c (test code = 13224) 6.2 % 2708 HEMOGLOBIN [id number] 00:00:00 Test Item Value Reference Range Interpretation Comments HEMOGLOBIN A1c (test code = 97248) 6.2 % COMPREHENSIVE METABOLIC [id number] 00:00:00 Test Item Value Reference Range Interpretation Comments GLUCOSE (test code = 2217) 167 MG/DL BUN (test code = 2208) 21 MG/DL CREATININE (test code = 2214) 1.18 MG/DL eGFR (2020 CKD-EPI) (test code 72 ML/MIN/1.73 = 43888) CALC BUN/CREAT (test code = 18 RATIO [...] CALC GLOBULIN (test code = 3.3 G/DL 0) CALC A/G RATIO (test code = 1.2 RATIO 2234) BILIRUBIN, TOTAL (test code = 0.5 MG/DL 2206) ALKALINE PHOSPHATASE (test 124 U/L code = 2204) AST (test code = 2218) 17 U/L ALT (test code = 2219) 32 U/L LIPID [id number] 00:00:00 Test Item Value Reference Range Interpretation Comments CHOLESTEROL (test code = 2210) 240 MG/DL TRIGLYCERIDES (test code = 2232) 160 MG/DL HDL CHOLESTEROL (test code = 2220) 53 MG/DL CALC LDL CHOL (test code = 2237) 157 MG/DL RISK RATIO LDL/HDL (test code = 2.96 RATIO 2238) LIPID [id number] 00:00:00 Test Item Value Reference Range Interpretation Comments CHOLESTEROL (test code = 2210) 240 MG/DL TRIGLYCERIDES (test code = 2232) 160 MG/DL HDL CHOLESTEROL (test code = 2220) 53 MG/DL CALC LDL CHOL (test code = 2237) 157 MG/DL RISK RATIO LDL/HDL (test code = 2.96 RATIO 2238) 2708 HEMOGLOBIN [id number] 00:00:00 Test Item Value Reference Range Interpretation Comments HEMOGLOBIN A1c (test code = 62234) 6.2 % 2708 HEMOGLOBIN [id number] 00:00:00 Test Item Value Reference Range Interpretation Comments HEMOGLOBIN A1c (test code = 63887) 6.2 % 2708 HEMOGLOBIN [id number] 00:00:00 Test Item Value Reference Range Interpretation Comments HEMOGLOBIN A1c (test code = 03165) 6.2 % [id number] 17:51:37 Test Item Value Reference Range Interpretation Comments APPEARANCE (test code = Clear Clear 9191994331) COLOR (test code = Yellow Yellow 3813158118) PH (test code = 4.8-8.0 4999945968) SP GRAVITY (test code = 1.003-1.030 4805258581) GLU U QUAL (test code = Normal Normal 6894016814) BLOOD (test code = Negative Negative 9944670011) KETONES (test code = Negative Negative 8905847165) PROTEIN (test code = Negative Negative 2887-8) UROBILIN (test code = Normal Normal 7452909734) BILIRUBIN (test code = Negative Negative 4507470354) NITRITE (test code = Negative Negative 5074337047) LEUK SADIQ (test code = Negative Negative 7314875311) RBC/HPF (test code = See_Comment [Autom ated message] 5944960375) The system [employer] generated this result transmitted ref erence range: 0 - 3 HP F. The reference range was not used to int erpret this result as normal/abnormal . WBC/HPF (test code = See_Comment [Autom ated message] 4805555069) The system [employer] generated this result transmitted ref erence range: 0 - 5 HP F. The reference range was not used to int erpret this result as normal/abnormal . BACTERIA (test code = Negative Negative 8532881525) MUCOUS (test code = Slight Negative LPF A 2045263520) SQ EPITH (test code = <1 HPF 8848895194) Lab Interpretation (test Abnormal code = 02165-6) [id number] Test Item Value Reference Range Interpretation Comments APPEARANCE (test code = Clear Clear 8471222078) COLOR (test code = Yellow Yellow 1214286249) PH (test code = 4.8-8.0 0216556213) SP GRAVITY (test code = 1.003-1.030 6893015331) GLU U QUAL (test code = Normal Normal 8119299593) BLOOD (test code = Negative Negative 6656340095) KETONES (test code = Negative Negative 1076899452) PROTEIN (test code = Negative Negative 2887-8) UROBILIN (test code = Normal Normal 6378978963) BILIRUBIN (test code = Negative Negative 9861317567) NITRITE (test code = Negative Negative 3655677127) LEUK SADIQ (test code = Negative Negative 0991068016) RBC/HPF (test code = See_Comment [Autom ated message] 6370822236) The system [employer] generated this result transmitted ref erence range: 0 - 3 HP F. The reference range was not used to int erpret this result as normal/abnormal . WBC/HPF (test code = See_Comment [Autom ated message] 9035491895) The system [employer] generated this result transmitted ref erence range: 0 - 5 HP F. The reference range was not used to int erpret this result as normal/abnormal . BACTERIA (test code = Negative Negative 2898531832) MUCOUS (test code = Slight Negative LPF A 3613621950) SQ EPITH (test code = <1 HPF 3735815949) Lab Interpretation (test Abnormal code = 77809-9) [facility] [id number] 00:00:00 Test Item Value Reference Range Interpretation [...] code = 1015) 287 K/UL CBC W/AUTO [id number] 00:00:00 Test Item Value Reference Range Interpretation [...] code = 1015) 287 K/UL CBC W/AUTO [id number] 00:00:00 Test Item Value Reference Range Interpretation [...] code = 1015) 287 K/UL COMPREHENSIVE METABOLIC [id number] 00:00:00 Test Item Value Reference Range Interpretation Comments GLUCOSE (test code = 2217) 84 MG/DL BUN (test code = 2208) 16 MG/DL CREATININE (test code = 2214) 1.03 MG/DL eGFR AMER. (test code 94 ML/MIN/1.73 = 59442) eGFR NON- AMER. (test 81 ML/MIN/1.73 code = 50951) CALC BUN/CREAT (test code = 16 RATIO [...] code = 2219) 31 U/L COMPREHENSIVE METABOLIC [id number] 00:00:00 Test Item Value Reference Range Interpretation Comments GLUCOSE (test code = 2217) 84 MG/DL BUN (test code = 2208) 16 MG/DL CREATININE (test code = 2214) 1.03 MG/DL eGFR AMER. (test code 94 ML/MIN/1.73 = 89418) eGFR NON- AMER. (test 81 ML/MIN/1.73 code = 09907) CALC BUN/CREAT (test code = 16 RATIO [...] (test code = 2219) 31 U/L HEMOGLOBIN [id number] 00:00:00 Test Item Value Reference Range Interpretation Comments HEMOGLOBIN A1c (test code = 01687) 5.9 % HEMOGLOBIN [id number] 00:00:00 Test Item Value Reference Range Interpretation Comments HEMOGLOBIN A1c (test code = 70446) 5.9 % HEMOGLOBIN [id number] 00:00:00 Test Item Value Reference Range Interpretation Comments HEMOGLOBIN A1c (test code = 61226) 5.9 % LIPID [id number] 00:00:00 Test Item Value Reference Range Interpretation Comments CHOLESTEROL (test code = 2210) 281 MG/DL TRIGLYCERIDES (test code = 2232) 352 MG/DL HDL CHOLESTEROL (test code = 2220) 49 MG/DL CALC LDL CHOL (test code = 2237) 162 MG/DL RISK RATIO LDL/HDL (test code = 3.30 RATIO 2238) LIPID [id number] 00:00:00 Test Item Value Reference Range Interpretation Comments CHOLESTEROL (test code = 2210) 281 MG/DL TRIGLYCERIDES (test code = 2232) 352 MG/DL HDL CHOLESTEROL (test code = 2220) 49 MG/DL CALC LDL CHOL (test code = 2237) 162 MG/DL RISK RATIO LDL/HDL (test code = 3.30 RATIO 2238) CBC W/AUTO [id number] 00:00:00 Test Item Value Reference Range Interpretation [...] code = 1015) 287 K/UL CBC W/AUTO [id number] 00:00:00 Test Item Value Reference Range Interpretation [...] code = 1015) 287 K/UL CBC W/AUTO [id number] 00:00:00 Test Item Value Reference Range Interpretation [...] code = 1015) 287 K/UL COMPREHENSIVE METABOLIC [id number] 00:00:00 Test Item Value Reference Range Interpretation Comments GLUCOSE (test code = 2217) 84 MG/DL BUN (test code = 2208) 16 MG/DL CREATININE (test code = 2214) 1.03 MG/DL eGFR AMER. (test code 94 ML/MIN/1.73 = 18793) eGFR NON- AMER. (test 81 ML/MIN/1.73 code = 97080) CALC BUN/CREAT (test code = 16 RATIO [...] code = 2219) 31 U/L COMPREHENSIVE METABOLIC [id number] 00:00:00 Test Item Value Reference Range Interpretation Comments GLUCOSE (test code = 2217) 84 MG/DL BUN (test code = 2208) 16 MG/DL CREATININE (test code = 2214) 1.03 MG/DL eGFR AMER. (test code 94 ML/MIN/1.73 = 39695) eGFR NON- AMER. (test 81 ML/MIN/1.73 code = 30911) CALC BUN/CREAT (test code = 16 RATIO [...] (test code = 2219) 31 U/L HEMOGLOBIN [id number] 00:00:00 Test Item Value Reference Range Interpretation Comments HEMOGLOBIN A1c (test code = 73777) 5.9 % HEMOGLOBIN [id number] 00:00:00 Test Item Value Reference Range Interpretation Comments HEMOGLOBIN A1c (test code = 00687) 5.9 % HEMOGLOBIN [id number] 00:00:00 Test Item Value Reference Range Interpretation Comments HEMOGLOBIN A1c (test code = 03269) 5.9 % LIPID [id number] 00:00:00 Test Item Value Reference Range Interpretation Comments CHOLESTEROL (test code = 2210) 281 MG/DL TRIGLYCERIDES (test code = 2232) 352 MG/DL HDL CHOLESTEROL (test code = 2220) 49 MG/DL CALC LDL CHOL (test code = 2237) 162 MG/DL RISK RATIO LDL/HDL (test code = 3.30 RATIO 2238) LIPID [id number] 00:00:00 Test Item Value Reference Range Interpretation Comments CHOLESTEROL (test code = 2210) 281 MG/DL TRIGLYCERIDES (test code = 2232) 352 MG/DL HDL CHOLESTEROL (test code = 2220) 49 MG/DL CALC LDL CHOL (test code = 2237) 162 MG/DL RISK RATIO LDL/HDL (test code = 3.30 RATIO 2238) CBC W/AUTO [id number] 00:00:00 Test Item Value Reference Range Interpretation [...] code = 1015) 287 K/UL CBC W/AUTO [id number] 00:00:00 Test Item Value Reference Range Interpretation [...] code = 1015) 287 K/UL CBC W/AUTO [id number] 00:00:00 Test Item Value Reference Range Interpretation [...] code = 1015) 287 K/UL CBC W/AUTO [id number] 00:00:00 Test Item Value Reference Range Interpretation [...] code = 1015) 287 K/UL COMPREHENSIVE METABOLIC [id number] 00:00:00 Test Item Value Reference Range Interpretation Comments GLUCOSE (test code = 2217) 84 MG/DL BUN (test code = 2208) 16 MG/DL CREATININE (test code = 2214) 1.03 MG/DL eGFR AMER. (test code 94 ML/MIN/1.73 = 59154) eGFR NON- AMER. (test 81 ML/MIN/1.73 code = 92648) CALC BUN/CREAT (test code = 16 RATIO [...] code = 2219) 31 U/L COMPREHENSIVE METABOLIC [id number] 00:00:00 Test Item Value Reference Range Interpretation Comments GLUCOSE (test code = 2217) 84 MG/DL BUN (test code = 2208) 16 MG/DL CREATININE (test code = 2214) 1.03 MG/DL eGFR AMER. (test code 94 ML/MIN/1.73 = 39821) eGFR NON- AMER. (test 81 ML/MIN/1.73 code = 56403) CALC BUN/CREAT (test code = 16 RATIO [...] (test code = 2219) 31 U/L HEMOGLOBIN [id number] 00:00:00 Test Item Value Reference Range Interpretation Comments HEMOGLOBIN A1c (test code = 91057) 5.9 % HEMOGLOBIN [id number] 00:00:00 Test Item Value Reference Range Interpretation Comments HEMOGLOBIN A1c (test code = 21557) 5.9 % HEMOGLOBIN [id number] 00:00:00 Test Item Value Reference Range Interpretation Comments HEMOGLOBIN A1c (test code = 17142) 5.9 % LIPID [id number] 00:00:00 Test Item Value Reference Range Interpretation Comments CHOLESTEROL (test code = 2210) 281 MG/DL TRIGLYCERIDES (test code = 2232) 352 MG/DL HDL CHOLESTEROL (test code = 2220) 49 MG/DL CALC LDL CHOL (test code = 2237) 162 MG/DL RISK RATIO LDL/HDL (test code = 3.30 RATIO 2238) LIPID [id number] 00:00:00 Test Item Value Reference Range Interpretation Comments CHOLESTEROL (test code = 2210) 281 MG/DL TRIGLYCERIDES (test code = 2232) 352 MG/DL HDL CHOLESTEROL (test code = 2220) 49 MG/DL CALC LDL CHOL (test code = 2237) 162 MG/DL RISK RATIO LDL/HDL (test code = 3.30 RATIO 2238) CBC W/AUTO [id number] 00:00:00 Test Item Value Reference Range Interpretation [...] code = 1015) 287 K/UL CBC W/AUTO [id number] 00:00:00 Test Item Value Reference Range Interpretation [...] code = 1015) 287 K/UL COMPREHENSIVE METABOLIC [id number] 00:00:00 Test Item Value Reference Range Interpretation Comments GLUCOSE (test code = 2217) 84 MG/DL BUN (test code = 2208) 16 MG/DL CREATININE (test code = 2214) 1.03 MG/DL eGFR AMER. (test code 94 ML/MIN/1.73 = 92074) eGFR NON- AMER. (test 81 ML/MIN/1.73 code = 60523) CALC BUN/CREAT (test code = 16 RATIO [...] ALKALINE PHOSPHATASE (test 122 U/L code = 220) AST (test code = 2218) 20 U/L ALT (test code = 2219) 31 U/L COMPREHENSIVE METABOLIC [id number] 00:00:00 Test Item Value Reference Range Interpretation Comments GLUCOSE (test code = 2217) 84 MG/DL BUN (test code = 2208) 16 MG/DL CREATININE (test code = 2214) 1.03 MG/DL eGFR AMER. (test code 94 ML/MIN/1.73 = 75786) eGFR NON- AMER. (test 81 ML/MIN/1.73 code = 35751) CALC BUN/CREAT (test code = 16 RATIO [...] (test code = 2219) 31 U/L HEMOGLOBIN [id number] 00:00:00 Test Item Value Reference Range Interpretation Comments HEMOGLOBIN A1c (test code = 99522) 5.9 % HEMOGLOBIN [id number] 00:00:00 Test Item Value Reference Range Interpretation Comments HEMOGLOBIN A1c (test code = 02570) 5.9 % HEMOGLOBIN [id number] 00:00:00 Test Item Value Reference Range Interpretation Comments HEMOGLOBIN A1c (test code = 40628) 5.9 % LIPID [id number] 00:00:00 Test Item Value Reference Range Interpretation Comments CHOLESTEROL (test code = 2210) 281 MG/DL TRIGLYCERIDES (test code = 2232) 352 MG/DL HDL CHOLESTEROL (test code = 2220) 49 MG/DL CALC LDL CHOL (test code = 2237) 162 MG/DL RISK RATIO LDL/HDL (test code = 3.30 RATIO 2238) LIPID [id number] 00:00:00 Test Item Value Reference Range Interpretation Comments CHOLESTEROL (test code = 2210) 281 MG/DL TRIGLYCERIDES (test code = 2232) 352 MG/DL HDL CHOLESTEROL (test code = 2220) 49 MG/DL CALC LDL CHOL (test code = 2237) 162 MG/DL RISK RATIO LDL/HDL (test code = 3.30 RATIO 2238) COMPREHENSIVE METABOLIC [id number] 00:00:00 Test Item Value Reference Range Interpretation Comments GLUCOSE (test code = 2217) 102 MG/DL BUN (test code = 2208) 18 MG/DL CREATININE (test code = 2214) 1.10 MG/DL eGFR AMER. (test code 88 ML/MIN/1.73 = 96544) eGFR NON- AMER. (test 76 ML/MIN/1.73 code = 30604) CALC BUN/CREAT (test code = 16 RATIO [...] = 0.3 MG/DL 2207) ALKALINE PHOSPHATASE (test 110 U/L code = 2204) AST (test code = 2218) 22 U/L ALT (test code = 2219) 32 U/L COMPREHENSIVE METABOLIC [id number] 00:00:00 Test Item Value Reference Range Interpretation Comments GLUCOSE (test code = 2217) 102 MG/DL BUN (test code = 2208) 18 MG/DL CREATININE (test code = 2214) 1.10 MG/DL eGFR AMER. (test code 88 ML/MIN/1.73 = 24891) eGFR NON- AMER. (test 76 ML/MIN/1.73 code = 24585) CALC BUN/CREAT (test code = 16 RATIO [...] (test code = 2219) 32 U/L LIPID [id number] 00:00:00 Test Item Value Reference Range Interpretation Comments CHOLESTEROL (test code = 2210) 262 MG/DL TRIGLYCERIDES (test code = 2232) 189 MG/DL HDL CHOLESTEROL (test code = 2220) 58 MG/DL CALC LDL CHOL (test code = 2237) 166 MG/DL RISK RATIO LDL/HDL (test code = 2.87 RATIO 2238) LIPID [id number] 00:00:00 Test Item Value Reference Range Interpretation Comments CHOLESTEROL (test code = 2210) 262 MG/DL TRIGLYCERIDES (test code = 2232) 189 MG/DL HDL CHOLESTEROL (test code = 2220) 58 MG/DL CALC LDL CHOL (test code = 2237) 166 MG/DL RISK RATIO LDL/HDL (test code = 2.87 RATIO 2238) COMPREHENSIVE METABOLIC [id number] 00:00:00 Test Item Value Reference Range Interpretation Comments GLUCOSE (test code = 2217) 102 MG/DL BUN (test code = 2208) 18 MG/DL CREATININE (test code = 2214) 1.10 MG/DL eGFR AMER. (test code 88 ML/MIN/1.73 = 61557) eGFR NON- AMER. (test 76 ML/MIN/1.73 code = 87578) CALC BUN/CREAT (test code = 16 RATIO [...] code = 2219) 32 U/L COMPREHENSIVE METABOLIC [id number] 00:00:00 Test Item Value Reference Range Interpretation Comments GLUCOSE (test code = 2217) 102 MG/DL BUN (test code = 2208) 18 MG/DL CREATININE (test code = 2214) 1.10 MG/DL eGFR AMER. (test code 88 ML/MIN/1.73 = 26622) eGFR NON- AMER. (test 76 ML/MIN/1.73 code = 68022) CALC BUN/CREAT (test code = 16 RATIO [...] (test code = 2219) 32 U/L LIPID [id number] 00:00:00 Test Item Value Reference Range Interpretation Comments CHOLESTEROL (test code = 2210) 262 MG/DL TRIGLYCERIDES (test code = 2232) 189 MG/DL HDL CHOLESTEROL (test code = 2220) 58 MG/DL CALC LDL CHOL (test code = 2237) 166 MG/DL RISK RATIO LDL/HDL (test code = 2.87 RATIO 2238) LIPID [id number] 00:00:00 Test Item Value Reference Range Interpretation Comments CHOLESTEROL (test code = 2210) 262 MG/DL TRIGLYCERIDES (test code = 2232) 189 MG/DL HDL CHOLESTEROL (test code = 2220) 58 MG/DL CALC LDL CHOL (test code = 2237) 166 MG/DL RISK RATIO LDL/HDL (test code = 2.87 RATIO 2238) COMPREHENSIVE METABOLIC [id number] 00:00:00 Test Item Value Reference Range Interpretation Comments GLUCOSE (test code = 2217) 102 MG/DL BUN (test code = 2208) 18 MG/DL CREATININE (test code = 2214) 1.10 MG/DL eGFR AMER. (test code 88 ML/MIN/1.73 = 84176) eGFR NON- AMER. (test 76 ML/MIN/1.73 code = 14250) CALC BUN/CREAT (test code = 16 RATIO [...] code = 2219) 32 U/L COMPREHENSIVE METABOLIC [id number] 00:00:00 Test Item Value Reference Range Interpretation Comments GLUCOSE (test code = 2217) 102 MG/DL BUN (test code = 2208) 18 MG/DL CREATININE (test code = 2214) 1.10 MG/DL eGFR AMER. (test code 88 ML/MIN/1.73 = 72443) eGFR NON- AMER. (test 76 ML/MIN/1.73 code = 78301) CALC BUN/CREAT (test code = 16 RATIO [...] (test code = 2219) 32 U/L LIPID [id number] 00:00:00 Test Item Value Reference Range Interpretation Comments CHOLESTEROL (test code = 2210) 262 MG/DL TRIGLYCERIDES (test code = 2232) 189 MG/DL HDL CHOLESTEROL (test code = 2220) 58 MG/DL CALC LDL CHOL (test code = 2237) 166 MG/DL RISK RATIO LDL/HDL (test code = 2.87 RATIO 2238) LIPID [id number] 00:00:00 Test Item Value Reference Range Interpretation Comments CHOLESTEROL (test code = 2210) 262 MG/DL TRIGLYCERIDES (test code = 2232) 189 MG/DL HDL CHOLESTEROL (test code = 2220) 58 MG/DL CALC LDL CHOL (test code = 2237) 166 MG/DL RISK RATIO LDL/HDL (test code = 2.87 RATIO 2238) COMPREHENSIVE METABOLIC [id number] 00:00:00 Test Item Value Reference Range Interpretation Comments GLUCOSE (test code = 2217) 102 MG/DL BUN (test code = 2208) 18 MG/DL CREATININE (test code = 2214) 1.10 MG/DL eGFR AMER. (test code 88 ML/MIN/1.73 = 72224) eGFR NON- AMER. (test 76 ML/MIN/1.73 code = 60393) CALC BUN/CREAT (test code = 16 RATIO 2235) SODIUM (test code = 2231) 138 MEQ/L POTASSIUM (test code = 2228) 4.3 MEQ/L CHLORIDE (test code = 2215) 101 MEQ/L CARBON DIOXIDE (test code = 27 MEQ/L 2206) CALCIUM (test code = 2209) 9.5 MG/DL [...] code = 2219) 32 U/L COMPREHENSIVE METABOLIC [id number] 00:00:00 Test Item Value Reference Range Interpretation Comments GLUCOSE (test code = 2217) 102 MG/DL BUN (test code = 2208) 18 MG/DL CREATININE (test code = 2214) 1.10 MG/DL eGFR AMER. (test code 88 ML/MIN/1.73 = 14993) eGFR NON- AMER. (test 76 ML/MIN/1.73 code = 09449) CALC BUN/CREAT (test code = 16 RATIO 2235) SODIUM (test code = 2231) 138 MEQ/L POTASSIUM (test code = 2228) 4.3 MEQ/L CHLORIDE (test code = 2215) 101 MEQ/L CARBON DIOXIDE (test code = 27 MEQ/L 2206) CALCIUM (test code = 2209) 9.5 MG/DL [...] (test code = 2219) 32 U/L LIPID [id number] 00:00:00 Test Item Value Reference Range Interpretation Comments CHOLESTEROL (test code = 2210) 262 MG/DL TRIGLYCERIDES (test code = 2232) 189 MG/DL HDL CHOLESTEROL (test code = 2220) 58 MG/DL CALC LDL CHOL (test code = 2237) 166 MG/DL RISK RATIO LDL/HDL (test code = 2.87 RATIO 2238) LIPID [id number] 00:00:00 Test Item Value Reference Range Interpretation Comments CHOLESTEROL (test code = 2210) 262 MG/DL TRIGLYCERIDES (test code = 2232) 189 MG/DL HDL CHOLESTEROL (test code = 2220) 58 MG/DL CALC LDL CHOL (test code = 2237) 166 MG/DL RISK RATIO LDL/HDL (test code = 2.87 RATIO 2238) COMPREHENSIVE METABOLIC [id number] 00:00:00 Test Item Value Reference Range Interpretation Comments GLUCOSE (test code = 2217) 79 MG/DL BUN (test code = 2208) 14 MG/DL CREATININE (test code = 2214) 0.95 MG/DL eGFR AMER. (test code 105 ML/MIN/1.73 = 17075) eGFR NON- AMER. (test 91 ML/MIN/1.73 code = 07842) CALC BUN/CREAT (test code = 15 RATIO [...] BILIRUBIN, TOTAL (test code = 0.4 MG/DL 220) ALKALINE PHOSPHATASE (test 114 U/L code = 2204) AST (test code = 2218) 14 U/L ALT (test code = 2219) 23 U/L COMPREHENSIVE METABOLIC [id number] 00:00:00 Test Item Value Reference Range Interpretation Comments GLUCOSE (test code = 2217) 79 MG/DL BUN (test code = 2208) 14 MG/DL CREATININE (test code = 2214) 0.95 MG/DL eGFR AMER. (test code 105 ML/MIN/1.73 = 22224) eGFR NON- AMER. (test 91 ML/MIN/1.73 code = 13104) CALC BUN/CREAT (test code = 15 RATIO [...] (test code = 2219) 23 U/L LIPID [id number] 00:00:00 Test Item Value Reference Range Interpretation Comments CHOLESTEROL (test code = 2210) 242 MG/DL TRIGLYCERIDES (test code = 2232) 233 MG/DL HDL CHOLESTEROL (test code = 2220) 52 MG/DL CALC LDL CHOL (test code = 2237) 143 MG/DL RISK RATIO LDL/HDL (test code = 2.76 RATIO 2238) LIPID [id number] 00:00:00 Test Item Value Reference Range Interpretation Comments CHOLESTEROL (test code = 2210) 242 MG/DL TRIGLYCERIDES (test code = 2232) 233 MG/DL HDL CHOLESTEROL (test code = 2220) 52 MG/DL CALC LDL CHOL (test code = 2237) 143 MG/DL RISK RATIO LDL/HDL (test code = 2.76 RATIO 2238) COMPREHENSIVE METABOLIC [id number] 00:00:00 Test Item Value Reference Range Interpretation Comments GLUCOSE (test code = 2217) 79 MG/DL BUN (test code = 2208) 14 MG/DL CREATININE (test code = 2214) 0.95 MG/DL eGFR AMER. (test code 105 ML/MIN/1.73 = 13639) eGFR NON- AMER. (test 91 ML/MIN/1.73 code = 07803) CALC BUN/CREAT (test code = 15 RATIO [...] code = 2219) 23 U/L COMPREHENSIVE METABOLIC [id number] 00:00:00 Test Item Value Reference Range Interpretation Comments GLUCOSE (test code = 2217) 79 MG/DL BUN (test code = 2208) 14 MG/DL CREATININE (test code = 2214) 0.95 MG/DL eGFR AMER. (test code 105 ML/MIN/1.73 = 25775) eGFR NON- AMER. (test 91 ML/MIN/1.73 code = 29874) CALC BUN/CREAT (test code = 15 RATIO [...] (test code = 2219) 23 U/L LIPID [id number] 00:00:00 Test Item Value Reference Range Interpretation Comments CHOLESTEROL (test code = 2210) 242 MG/DL TRIGLYCERIDES (test code = 2232) 233 MG/DL HDL CHOLESTEROL (test code = 2220) 52 MG/DL CALC LDL CHOL (test code = 2237) 143 MG/DL RISK RATIO LDL/HDL (test code = 2.76 RATIO 2238) LIPID [id number] 00:00:00 Test Item Value Reference Range Interpretation Comments CHOLESTEROL (test code = 2210) 242 MG/DL TRIGLYCERIDES (test code = 2232) 233 MG/DL HDL CHOLESTEROL (test code = 2220) 52 MG/DL CALC LDL CHOL (test code = 2237) 143 MG/DL RISK RATIO LDL/HDL (test code = 2.76 RATIO 2238) COMPREHENSIVE METABOLIC [id number] 00:00:00 Test Item Value Reference Range Interpretation Comments GLUCOSE (test code = 2217) 79 MG/DL BUN (test code = 2208) 14 MG/DL CREATININE (test code = 2214) 0.95 MG/DL eGFR AMER. (test code 105 ML/MIN/1.73 = 46870) eGFR NON- AMER. (test 91 ML/MIN/1.73 code = 12406) CALC BUN/CREAT (test code = 15 RATIO 2235) SODIUM (test code = 2231) 143 MEQ/L POTASSIUM (test code = 2228) 4.5 MEQ/L CHLORIDE (test code = 2215) 101 MEQ/L CARBON DIOXIDE (test code = 27 MEQ/L 2205) CALCIUM (test code = 2209) 9.6 MG/DL PROTEIN, TOTAL (test code = 7.4 G/DL 2229) ALBUMIN (test code = 2201) 4.2 G/DL CALC GLOBULIN (test code = 3.2 G/DL 2240) CALC A/G RATIO (test code = 1.3 RATIO 2234) BILIRUBIN, TOTAL (test code = 0.4 MG/DL 220) ALKALINE PHOSPHATASE (test 114 U/L code = 2204) AST (test code = 2218) 14 U/L ALT (test code = 2219) 23 U/L COMPREHENSIVE METABOLIC [id number] 00:00:00 Test Item Value Reference Range Interpretation Comments GLUCOSE (test code = 2217) 79 MG/DL BUN (test code = 2208) 14 MG/DL CREATININE (test code = 2214) 0.95 MG/DL eGFR AMER. (test code 105 ML/MIN/1.73 = 25345) eGFR NON- AMER. (test 91 ML/MIN/1.73 code = 59397) CALC BUN/CREAT (test code = 15 RATIO [...] code = 2219) 23 U/L COMPREHENSIVE METABOLIC [id number] 00:00:00 Test Item Value Reference Range Interpretation Comments GLUCOSE (test code = 2217) 79 MG/DL BUN (test code = 2208) 14 MG/DL CREATININE (test code = 2214) 0.95 MG/DL eGFR AMER. (test code 105 ML/MIN/1.73 = 21764) eGFR NON- AMER. (test 91 ML/MIN/1.73 code = 43250) CALC BUN/CREAT (test code = 15 RATIO [...] (test code = 2219) 23 U/L LIPID [id number] 00:00:00 Test Item Value Reference Range Interpretation Comments CHOLESTEROL (test code = 2210) 242 MG/DL TRIGLYCERIDES (test code = 2232) 233 MG/DL HDL CHOLESTEROL (test code = 2220) 52 MG/DL CALC LDL CHOL (test code = 2237) 143 MG/DL RISK RATIO LDL/HDL (test code = 2.76 RATIO 2238) COMPREHENSIVE METABOLIC [id number] 00:00:00 Test Item Value Reference Range Interpretation Comments GLUCOSE (test code = 2217) 79 MG/DL BUN (test code = 2208) 14 MG/DL CREATININE (test code = 2214) 0.95 MG/DL eGFR AMER. (test code 105 ML/MIN/1.73 = 07786) eGFR NON- AMER. (test 91 ML/MIN/1.73 code = 78325) CALC BUN/CREAT (test code = 15 RATIO [...] (test code = 2219) 23 U/L LIPID [id number] 00:00:00 Test Item Value Reference Range Interpretation Comments CHOLESTEROL (test code = 2210) 242 MG/DL TRIGLYCERIDES (test code = 2232) 233 MG/DL HDL CHOLESTEROL (test code = 2220) 52 MG/DL CALC LDL CHOL (test code = 2237) 143 MG/DL RISK RATIO LDL/HDL (test code = 2.76 RATIO 2238) LIPID [id number] 00:00:00 Test Item Value Reference Range Interpretation Comments CHOLESTEROL (test code = 2210) 242 MG/DL TRIGLYCERIDES (test code = 2232) 233 MG/DL HDL CHOLESTEROL (test code = 2220) 52 MG/DL CALC LDL CHOL (test code = 2237) 143 MG/DL RISK RATIO LDL/HDL (test code = 2.76 RATIO 2238) LIPID [id number] 00:00:00 Test Item Value Reference Range Interpretation Comments CHOLESTEROL (test code = 2210) 242 MG/DL TRIGLYCERIDES (test code = 2232) 233 MG/DL HDL CHOLESTEROL (test code = 2220) 52 MG/DL CALC LDL CHOL (test code = 2237) 143 MG/DL RISK RATIO LDL/HDL (test code = 2.76 RATIO 2238) COMPREHENSIVE METABOLIC [id number] 00:00:00 Test Item Value Reference Range Interpretation Comments GLUCOSE (test code = 2217) 108 MG/DL BUN (test code = 2208) 16 MG/DL CREATININE (test code = 2214) 0.95 MG/DL eGFR AMER. (test code 107 ML/MIN/1.73 = 32724) eGFR NON- AMER. (test 92 ML/MIN/1.73 code = 68138) CALCULATED BUN/CREAT (test 17 RATIO code = [...] code = 2219) 28 U/L COMPREHENSIVE METABOLIC [id number] 00:00:00 Test Item Value Reference Range Interpretation Comments GLUCOSE (test code = 2217) 108 MG/DL BUN (test code = 2208) 16 MG/DL CREATININE (test code = 2214) 0.95 MG/DL eGFR AMER. (test code 107 ML/MIN/1.73 = 52449) eGFR NON- AMER. (test 92 ML/MIN/1.73 code = 98464) CALCULATED BUN/CREAT (test 17 RATIO code = [...] (test code = 2219) 28 U/L LIPID [id number] 00:00:00 Test Item Value Reference Range Interpretation Comments CHOLESTEROL (test code = 2210) 249 MG/DL TRIGLYCERIDES (test code = 2232) 156 MG/DL HDL CHOLESTEROL (test code = 2220) 55 MG/DL CALCULATED LDL CHOL (test code = 163 MG/DL 2237) RISK RATIO LDL/HDL (test code = 2.96 RATIO 2238) LIPID [id number] 00:00:00 Test Item Value Reference Range Interpretation Comments CHOLESTEROL (test code = 2210) 249 MG/DL TRIGLYCERIDES (test code = 2232) 156 MG/DL HDL CHOLESTEROL (test code = 2220) 55 MG/DL CALCULATED LDL CHOL (test code = 163 MG/DL 2237) RISK RATIO LDL/HDL (test code = 2.96 RATIO 2238) CBC W/AUTO [id number] 00:00:00 Test Item Value Reference Range Interpretation [...] code = 1015) 276 K/UL CBC W/AUTO [id number] 00:00:00 Test Item Value Reference Range Interpretation [...] code = 1015) 276 K/UL CBC W/AUTO [id number] 00:00:00 Test Item Value Reference Range Interpretation [...] (test code = 1015) 276 K/UL HEMOGLOBIN [id number] 00:00:00 Test Item Value Reference Range Interpretation Comments HEMOGLOBIN A1c (test code = 30662) 5.9 % HEMOGLOBIN [id number] 00:00:00 Test Item Value Reference Range Interpretation Comments HEMOGLOBIN A1c (test code = 08247) 5.9 % HEMOGLOBIN [id number] 00:00:00 Test Item Value Reference Range Interpretation Comments HEMOGLOBIN A1c (test code = 50116) 5.9 % [id number] 00:00:00 Test Item Value Reference Range Interpretation Comments TSH (test code = 2821) 2.1 UIU/ML [id number] 00:00:00 Test Item Value Reference Range Interpretation Comments TSH (test code = 2821) 2.1 UIU/ML [id number] 00:00:00 Test Item Value Reference Range Interpretation Comments TSH (test code = 2821) 2.1 UIU/ML COMPREHENSIVE METABOLIC [id number] 00:00:00 Test Item Value Reference Range Interpretation Comments GLUCOSE (test code = 2217) 108 MG/DL BUN (test code = 2208) 16 MG/DL CREATININE (test code = 2214) 0.95 MG/DL eGFR AMER. (test code 107 ML/MIN/1.73 = 19737) eGFR NON- AMER. (test 92 ML/MIN/1.73 code = 61340) CALCULATED BUN/CREAT (test 17 RATIO code = [...] code = 2219) 28 U/L COMPREHENSIVE METABOLIC [id number] 00:00:00 Test Item Value Reference Range Interpretation Comments GLUCOSE (test code = 2217) 108 MG/DL BUN (test code = 2208) 16 MG/DL CREATININE (test code = 2214) 0.95 MG/DL eGFR AMER. (test code 107 ML/MIN/1.73 = 33696) eGFR NON- AMER. (test 92 ML/MIN/1.73 code = 13483) CALCULATED BUN/CREAT (test 17 RATIO code = [...] (test code = 2219) 28 U/L LIPID [id number] 00:00:00 Test Item Value Reference Range Interpretation Comments CHOLESTEROL (test code = 2210) 249 MG/DL TRIGLYCERIDES (test code = 2232) 156 MG/DL HDL CHOLESTEROL (test code = 2220) 55 MG/DL CALCULATED LDL CHOL (test code = 163 MG/DL 2237) RISK RATIO LDL/HDL (test code = 2.96 RATIO 2238) LIPID [id number] 00:00:00 Test Item Value Reference Range Interpretation Comments CHOLESTEROL (test code = 2210) 249 MG/DL TRIGLYCERIDES (test code = 2232) 156 MG/DL HDL CHOLESTEROL (test code = 2220) 55 MG/DL CALCULATED LDL CHOL (test code = 163 MG/DL 2237) RISK RATIO LDL/HDL (test code = 2.96 RATIO 2238) CBC W/AUTO [id number] 00:00:00 Test Item Value Reference Range Interpretation [...] code = 1015) 276 K/UL CBC W/AUTO [id number] 00:00:00 Test Item Value Reference Range Interpretation [...] code = 1015) 276 K/UL CBC W/AUTO [id number] 00:00:00 Test Item Value Reference Range Interpretation [...] (test code = 1015) 276 K/UL HEMOGLOBIN [id number] 00:00:00 Test Item Value Reference Range Interpretation Comments HEMOGLOBIN A1c (test code = 90882) 5.9 % HEMOGLOBIN [id number] 00:00:00 Test Item Value Reference Range Interpretation Comments HEMOGLOBIN A1c (test code = 68056) 5.9 % HEMOGLOBIN [id number] 00:00:00 Test Item Value Reference Range Interpretation Comments HEMOGLOBIN A1c (test code = 42250) 5.9 % [id number] 00:00:00 Test Item Value Reference Range Interpretation Comments TSH (test code = 2821) 2.1 UIU/ML [id number] 00:00:00 Test Item Value Reference Range Interpretation Comments TSH (test code = 2821) 2.1 UIU/ML [id number] 00:00:00 Test Item Value Reference Range Interpretation Comments TSH (test code = 2821) 2.1 UIU/ML COMPREHENSIVE METABOLIC [id number] 00:00:00 Test Item Value Reference Range Interpretation Comments GLUCOSE (test code = 2217) 108 MG/DL BUN (test code = 2208) 16 MG/DL CREATININE (test code = 2214) 0.95 MG/DL eGFR AMER. (test code 107 ML/MIN/1.73 = 01006) eGFR NON- AMER. (test 92 ML/MIN/1.73 code = 64955) CALCULATED BUN/CREAT (test 17 RATIO code = [...] code = 2219) 28 U/L COMPREHENSIVE METABOLIC [id number] 00:00:00 Test Item Value Reference Range Interpretation Comments GLUCOSE (test code = 2217) 108 MG/DL BUN (test code = 2208) 16 MG/DL CREATININE (test code = 2214) 0.95 MG/DL eGFR AMER. (test code 107 ML/MIN/1.73 = 53917) eGFR NON- AMER. (test 92 ML/MIN/1.73 code = 59615) CALCULATED BUN/CREAT (test 17 RATIO code = [...] (test code = 2219) 28 U/L LIPID [id number] 00:00:00 Test Item Value Reference Range Interpretation Comments CHOLESTEROL (test code = 2210) 249 MG/DL TRIGLYCERIDES (test code = 2232) 156 MG/DL HDL CHOLESTEROL (test code = 2220) 55 MG/DL CALCULATED LDL CHOL (test code = 163 MG/DL 2237) RISK RATIO LDL/HDL (test code = 2.96 RATIO 2238) LIPID [id number] 00:00:00 Test Item Value Reference Range Interpretation Comments CHOLESTEROL (test code = 2210) 249 MG/DL TRIGLYCERIDES (test code = 2232) 156 MG/DL HDL CHOLESTEROL (test code = 2220) 55 MG/DL CALCULATED LDL CHOL (test code = 163 MG/DL 2237) RISK RATIO LDL/HDL (test code = 2.96 RATIO 2238) COMPREHENSIVE METABOLIC [id number] 00:00:00 Test Item Value Reference Range Interpretation Comments GLUCOSE (test code = 2217) 108 MG/DL BUN (test code = 2208) 16 MG/DL CREATININE (test code = 2214) 0.95 MG/DL eGFR AMER. (test code 107 ML/MIN/1.73 = 89191) eGFR NON- AMER. (test 92 ML/MIN/1.73 code = 21389) CALCULATED BUN/CREAT (test 17 RATIO code = [...] code = 2219) 28 U/L CBC W/AUTO [id number] 00:00:00 Test Item Value Reference Range Interpretation [...] code = 1015) 276 K/UL CBC W/AUTO [id number] 00:00:00 Test Item Value Reference Range Interpretation [...] code = 1015) 276 K/UL CBC W/AUTO [id number] 00:00:00 Test Item Value Reference Range Interpretation [...] (test code = 1015) 276 K/UL HEMOGLOBIN [id number] 00:00:00 Test Item Value Reference Range Interpretation Comments HEMOGLOBIN A1c (test code = 57804) 5.9 % HEMOGLOBIN [id number] 00:00:00 Test Item Value Reference Range Interpretation Comments HEMOGLOBIN A1c (test code = 53687) 5.9 % HEMOGLOBIN [id number] 00:00:00 Test Item Value Reference Range Interpretation Comments HEMOGLOBIN A1c (test code = 60069) 5.9 % [id number] 00:00:00 Test Item Value Reference Range Interpretation Comments TSH (test code = 2821) 2.1 UIU/ML [id number] 00:00:00 Test Item Value Reference Range Interpretation Comments TSH (test code = 2821) 2.1 UIU/ML [id number] 00:00:00 Test Item Value Reference Range Interpretation Comments TSH (test code = 2821) 2.1 UIU/ML COMPREHENSIVE METABOLIC [id number] 00:00:00 Test Item Value Reference Range Interpretation Comments GLUCOSE (test code = 2217) 108 MG/DL BUN (test code = 2208) 16 MG/DL CREATININE (test code = 2214) 0.95 MG/DL eGFR AMER. (test code 107 ML/MIN/1.73 = 45531) eGFR NON- AMER. (test 92 ML/MIN/1.73 code = 44058) CALCULATED BUN/CREAT (test 17 RATIO code = [...] (test code = 2219) 28 U/L LIPID [id number] 00:00:00 Test Item Value Reference Range Interpretation Comments CHOLESTEROL (test code = 2210) 249 MG/DL TRIGLYCERIDES (test code = 2232) 156 MG/DL HDL CHOLESTEROL (test code = 2220) 55 MG/DL CALCULATED LDL CHOL (test code = 163 MG/DL 2237) RISK RATIO LDL/HDL (test code = 2.96 RATIO 2238) LIPID [id number] 00:00:00 Test Item Value Reference Range Interpretation Comments CHOLESTEROL (test code = 2210) 249 MG/DL TRIGLYCERIDES (test code = 2232) 156 MG/DL HDL CHOLESTEROL (test code = 2220) 55 MG/DL CALCULATED LDL CHOL (test code = 163 MG/DL 2237) RISK RATIO LDL/HDL (test code = 2.96 RATIO 2238) CBC W/AUTO [id number] 00:00:00 Test Item Value Reference Range Interpretation [...] code = 1015) 276 K/UL CBC W/AUTO [id number] 00:00:00 Test Item Value Reference Range Interpretation [...] code = 1015) 276 K/UL CBC W/AUTO [id number] 00:00:00 Test Item Value Reference Range Interpretation [...] (test code = 1015) 276 K/UL HEMOGLOBIN [id number] 00:00:00 Test Item Value Reference Range Interpretation Comments HEMOGLOBIN A1c (test code = 23989) 5.9 % HEMOGLOBIN [id number] 00:00:00 Test Item Value Reference Range Interpretation Comments HEMOGLOBIN A1c (test code = 98179) 5.9 % HEMOGLOBIN [id number] 00:00:00 Test Item Value Reference Range Interpretation Comments HEMOGLOBIN A1c (test code = 66123) 5.9 % [id number] 00:00:00 Test Item Value Reference Range Interpretation Comments TSH (test code = 2821) 2.1 UIU/ML [id number] 00:00:00 Test Item Value Reference Range Interpretation Comments TSH (test code = 2821) 2.1 UIU/ML [id number] 00:00:00 Test Item Value Reference Range Interpretation Comments TSH (test code = 2821) 2.1 UIU/ML
--- NOTE | 2023-05-23 22:23 | RAD REPORT ---
EXAM DESCRIPTION: RAD - Knee Right 3 View - 05/23/2023 9:45 pm CLINICAL HISTORY: PAIN COMPARISON: Knee Right 2 View dated 11/13/2021 TECHNIQUE: Right knee, 3 views. FINDINGS: No fracture, dislocation or periosteal reaction.No joint effusion seen. Mild tricompartmen julisa osteoarthritic changes. No soft tissue abnormality. IMPRESSION: No acute osseous abnormality. Mild degenerative changes.
--- NOTE | 2023-05-23 22:47 | ER ---
Nurse's Notes [facility] Name: Soy Frias Age: 57 yrs Sex: Male : 1965 Arrival Date: 05/23/2023 Time: 20:18 Bed 12 Private MD: Diagnosis: Pain in right knee Presentation: 05/23 20:42 Chief complaint: Patient states: c/o worsening of chronic knee pain over the past two me1 days. States he cannot walk because it hurts too bad. Coronavirus screen: Vaccine status: Patient reports receiving the 2nd dose of the covid vaccine. Ebola Screen: No symptoms or risks identified at this time. Initial Sepsis Screen: Does the patient meet any 2 criteria? No. Patient's initial sepsis screen is negative. Does the patient have a suspected source of infection? No. Patient's initial sepsis screen is negative. Risk Assessment: Do you want to hurt yourself or someone else? Patient reports no desire to harm self or others. Onset of symptoms is unknown. 20:42 Method Of Arrival: Wheelchair me1 20:42 Acuity: JANIS 4 me1 Historical: - Allergies: 20:45 No Known Allergies; me1 - PMHx: 20:45 diabetes mellitus; Hypercholesterolemia; Hypertension; me1 - PSHx: 20:45 None; me1 - Immunization history:: Adult Immunizations unknown. - Social history:: Smoking status: Patient denies any tobacco usage or history of. Screenin/19 00:15 [facility] ED Fall Risk Assessment (Adult) Score/Fall Risk Level 0 - 2 = Low Risk. Abuse as6 screen: Denies threats or abuse. Denies injuries from another. Nutritional screening: No deficits noted. Tuberculosis screening: No symptoms or risk factors identified. Assessment: 00:17 General: Appears in no apparent distress. Behavior is calm, cooperative. Pain: as6 Complains of pain in right leg and right knee. Respiratory: Respiratory effort is even, unlabored. Musculoskeletal: Range of motion: limited in right knee. Vital Signs: 05/23 20:42 BP 171 / 98; Pulse 78; Resp 18; Temp 98.1(O); Pulse Ox 99% on R/A; Weight 93.89 kg; me1 Height 5 ft. 7 in. ; Pain 06/14; 05/24 00:16 BP 158 / 89; Pulse 76; Resp 18 S; Pulse Ox 97% on R/A; as6 05/23 20:42 Body Mass Index 32.42 (93.89 kg, 170.18 cm) me1 05/23 20:42 Pain Scale: Adult ia1 ED Course: 05/23 20:21 Patient arrived in ED. jj6 20:21 [facility] kb 20:21 Uriel Krueger MD is Attending Physician. kb 20:45 Triage completed. me1 20:45 Arm band placed on Patient placed in waiting room. me1 21:47 Knee Right 3 View XRAY In Process Unspecified. EDMS 05/24 00:15 Bed in low position. Call light in reach. Provided Education on: follow up with ortho . as6 00:16 No provider procedures requiring assistance completed. Patient did not have IV access as6 during this emergency room visit. Crutch training done. Knee immobilizer applied on right knee. Administered Medications: 05/23 21:25 CANCELLED (Patient Refused): hydrocodone-acetaminophen(7.5 mg-325 mg) 1 tabs PO once kb 22:40 Drug: [place] PO 10 mg-325 mg 1 tabs PO once Route: PO; me1 05/24 00:15 Follow up: Response: No adverse reaction as6 05/23 22:40 Drug: Ketorolac IM 30 mg IM once Route: IM; Site: left deltoid; me1 05/24 00:15 Follow up: Response: No adverse reaction as6 Medication: 00:15 VIS not applicable for this client. as6 Outcome: 05/23 22:47 Discharge ordered by . kb 05/24 00:16 Discharged to home via wheelchair, with crutches, with family, as6 Condition: stable Discharge instructions given to patient, Instructed on discharge instructions, follow up and referral plans. medication usage, crutch walking, Demonstrated understanding of instructions, follow-up care, medications, crutch walking, Prescriptions given X 1, 00:18 Patient left the ED. as6 Signatures: Dispatcher [employer] EDWV Angi Comer FNP-C FNP-Ckb Jeffries, Jennifer jj6 Anthony De Jesus RN RN as6 Eddleman, Ronna, RN RN me1
--- NOTE | 2023-05-23 22:47 | EDPHYS ---
Physician Documentation [facility] Name: Soy Frias Age: 57 yrs Sex: Male : 1965 Arrival Date: 05/23/2023 Time: :18 Bed 12 Private MD: ED Physician Uriel Krueger HPI: 05/23 23:36 This 57 yrs old Male presents to ER via Wheelchair with complaints of Knee kb Injury. 23:37 The patient presents with pain. The complaints affect the right knee. Context: The kb problem was sustained at an unknown site, resulted from an unknown cause, the patient is not able to bear weight, must have assistance, Problem is a result from a previous injury: No. Onset: The symptoms/episode began/occurred 7 month(s) ago, and became worse 2 week(s) ago. Modifying factors: The symptoms are alleviated by nothing. the symptoms are aggravated by weight bearing. Associated signs and symptoms: Pertinent positives: swelling, Pertinent negatives calf tenderness, fever, nausea, numbness, rash, tingling, vomiting, warmth, weakness. Treatment prior to arrival includes: no previous treatment. Severity of symptoms: At their worst the symptoms were moderate, in the emergency department the symptoms are unchanged. The patient has not experienced similar symptoms in the past. The patient has not recently seen a physician. Historical: - Allergies: 20:45 No Known Allergies; me1 - PMHx: 20:45 diabetes mellitus; Hypercholesterolemia; Hypertension; me1 - PSHx: 20:45 None; me1 - Immunization history:: Adult Immunizations unknown. - Social history:: Smoking status: Patient denies any tobacco usage or history of. ROS: 23:35 Constitutional: Negative for fever, chills, and weight loss, kb 23:35 MS/extremity: Positive for pain, swelling, tenderness, of the right knee, 23:35 All other systems are negative, Exam: 23:35 Constitutional: This is a well developed, well nourished patient who is awake, alert, kb and in no acute distress. Head/Face: Normocephalic, atraumatic. ENT: Moist Mucous membranes Cardiovascular: Regular rate Respiratory: Respirations even and unlabored. No increased work of breathing. Talking in full sentences Skin: Warm, dry with normal turgor. Normal color. Neuro: Awake and alert, GCS 15, oriented to person, place, time, and situation. Moves all extremities. Normal gait. 23:35 Musculoskeletal/extremity: Extremities: grossly normal except: noted in the right knee: pain, swelling, tenderness, ROM: intact in all extremities, Circulation is intact in all extremities. Sensation intact. Weight bearing: is unable to bear weight, Vital Signs: 20:42 BP 171 / 98; Pulse 78; Resp 18; Temp 98.1(O); Pulse Ox 99% on R/A; Weight 93.89 kg; me1 Height 5 ft. 7 in. ; Pain 10/10; 05/24 00:16 BP 158 / 89; Pulse 76; Resp 18 S; Pulse Ox 97% on R/A; as6 05/23 20:42 Body Mass Index 32.42 (93.89 kg, 170.18 cm) me1 05/23 20:42 Pain Scale: [place] [facility] [place]DM: 05/23 20:24 Patient medically screened. kb 23:35 Differential diagnosis: fracture, sprain, strain. Data reviewed: vital signs, nurses kb notes. Counseling: I had a detailed discussion with the patient and/or guardian regarding the historical points, exam findings, and any diagnostic results supporting the discharge/admit diagnosis, radiology results, the need for outpatient follow up, a orthopedic surgeon, to return to the emergency department if symptoms worsen or persist or if there are any questions or concerns that arise at home. 05/23 20:25 Order name: Knee Right 3 View XRAY; Complete Time: 22:25 kb 05/23 22:43 Order name: Knee Immobilizer; Complete Time: 23:50 kb 05/23 22:43 Order name: Crutches; Complete Time: 00:15 kb Administered Medications: 21:25 CANCELLED (Patient Refused): hydrocodone-acetaminophen(7.5 mg-325 mg) 1 tabs PO once kb 22:40 Drug: [place] PO 10 mg-325 mg 1 tabs PO once Route: PO; vt1 05/24 00:15 Follow up: Response: No adverse reaction as6 05/23 22:40 Drug: Ketorolac IM 30 mg IM once Route: IM; Site: left deltoid; vt1 05/24 00:15 Follow up: Response: No adverse reaction as6 Disposition: 08:42 Co-signature as Attending Physician, Uriel Krueger MD I agree with the assessment sp4 and plan of care. I reviewed the patient's care provided by the Advanced Practice Provider and agree with the diagnosis and treatment plan. Disposition Summary: 05/23/23 22:47 Discharge Ordered Notes: Location: Home kb Condition: Stable kb Diagnosis - Pain in right knee kb Followup: kb - With: Emergency Department - When: As needed - Reason: Worsening of condition Followup: kb - With: Private Physician - When: 2 - 3 days - Reason: Recheck today's complaints, Continuance of care, Re-evaluation by your physician Discharge Instructions: - Discharge Summary Sheet kb - Musculoskeletal Pain kb - Acute Knee Pain, Adult, [id number] kb Forms: - Medication Reconciliation Form kb - Thank You Letter kb - Antibiotic Education kb - Prescription Opioid Use kb - Patient Portal Instructions kb - Leadership Thank You Letter kb Prescriptions: - Diclofenac Sodium 75 mg Oral tablet,delayed release (DR/EC) - take 1 tablet by ORAL route 2 times per day As needed; 30 tablet; Refills: 0, kb Product Selection Permitted Signatures: Dispatcher [employer] EDMS Angi Comer, SENIOR CLINICIAN-C SENIOR CLINICIAN-Uriel Hughes MD MD sp4 Ronna Pham, RON RN me1 Anthony De Jesus RN as6 Corrections: (The following items were deleted from the chart) 05/23 21:25 21:22 Hydrocodone-Acetaminophen PO (7.5 mg-325 mg) 1 tabs PO once ordered. kb kb
[2023-05-23] MEDS ORDERED: HYDROCODONE/APAP 10/325 TAB ONE (22:48)
[2023-05-23] MEDS ORDERED: KETOROLAC 30 MG/ML INJ ONE (22:48)
[2023-05-24 02:02] VITALS: TEMP 98.1
[2023-05-24 02:03] VITALS: BP 158/89; O2SAT 97
== END 2023-05-24 00:18 | disposition home or self-care (01) ==
LOC: ER 20:18
DX: M25.561 Pain in right knee (principal)
CPT/HCPCS: 96372; 99284

== ENCOUNTER 2023-12-25 21:22 | Emergency (ER) | payer OTHER ==
--- OUTSIDE RECORDS SUMMARY | 2023-12-25 21:30 | XMS REPORT | Continuity of Care Document ---
Author Name Unknown Address [address] [facility] [address] [place] [address] [facility] thconnect Address [address] [facility] [address] [place] [address] Care Team Providers Care Channel Opener Name Role Phone Philip Colby [facility], [facility] Physician BRIONNA CEBALLOS Attending Clinician Unava ilable DIANN SADLER Attending Clinician Unavailable RASHMI SILVER Attending Clinician Unavailable MD DOMONIQUE Attending Clinician Unavailab TRACY Garrison Attending Clinician Unavailable MARK GUNTER Attending Clinician Unavail able KAMI JUNIOR Attending Clinician Unavailable MV, TECH 1 Attending Clinician Unavailable LINNETTE BARNETT Attending Clinician Unavailable LAB90 Attending Clinician Unavailable ARMAND LEONE Attending Clinician Unavailable PRADEEP VEGA Attending Clinician Unavail able MEEK LUCERO Attending Clinician Unavailable DOLORES MALIK Attending Clinician Unavailable SANDRA LOPEZ Attending Clinician Unavailable PL, TECH 1 Attending Clinician Unavailable ILIANA ANDRADE Attending Clinician UnaCATHY Wilson Attending Clinician Unavail able MELISSA VILLALPANDO Attending Clinician Unava ilable DULCE LEE Attending Clinician Unavailable KAREN LOPEZ Attending Clinician Unavailabl MARITO Osullivan Attending Clinician Unavailab DENIA Mccall Attending Clinician Unavailable ANTONIO ALEMAN Attending Clinician Unavailable Doctor Unassigned, [place] Attending Clinician U navailable Lenunle STASDwayne Attending Clinician Payers Payer Name Policy Type Policy Number Effective Date Expirati on Date Source [employer]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 [id number] 2022 00:00:00 COMMERCIAL NON-CONTRACT GENERIC [id number] 2017 00:00:00 Problems Condition Name Condition Details Condition Category Status Onset Date Resolution Date Last Treatment Date Treating Clinician Comments Source Chronic pain of both knees Chronic pain of both knees Disease Active 05-19 00:00: 00 Lexy Seybold - Externa l Acute bilateral low back pain without sciatica Acute bilateral low back pain without sciatica Disease Active 05-19 00:00: 00 Lexy Seybold - Externa l CASEY (obstructi ve sleep apnea) CASEY (obstructi ve sleep apnea) Disease Active 04-01 00:00: 00 Lexy Seybold - Externa l Prediabete s Prediabete s Disease Active 02-02 00:00: 00 Lexy Seybold - Externa l Mixed hyperlipid emia Mixed hyperlipid emia Disease Active 02-02 00:00: 00 Lexy Seybold - Externa l Hypertensi on Hypertensi on Disease Active 01-19 00:00: 00 Lexy Seybold - Externa l Low testostero ne Low testostero ne Disease Active 01-19 00:00: 00 Lexy Seybold - Externa l Erectile dysfunctio n Erectile dysfunctio n Disease Active 01-19 00:00: 00 Lexy Seybold - Externa l Snoring Snoring Disease Active 01-19 00:00: 00 Lexy Seybold - Externa l Dyspnea on exertion Dyspnea on exertion Disease Active 01-19 00:00: 00 Lexy Seybold - Externa l Class 3 severe obesity due to excess calories with serious comorbidit y and body mass index (BMI) of 40.0 to 44.9 in adult Class 3 severe obesity due to excess calories with serious comorbidit y and body mass index (BMI) of 40.0 to 44.9 in adult Disease Active 01-19 00:00: 00 Lexy Porrasa l 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 01-19 00:00: 00 Lexy Oropeza - Verna l No known active problems No known active problems Disease [facility] Allergies, Adverse Reactions, Alerts Allergy Name Allergy Type Status Severity Reaction(s) Onset Date Inactive Date Treating Clinician Comments Source NO KNOWN ALLERGIE S Drug Class Active [facility] Social History Social Habit Start Date Stop Date Quantity Comments Source Gender identity Rosa M Oropeza - External Sexual orientation [facility] Alcohol intake 2023-10-14 00:00:00 2023-10-14 00:00:00 Lifetime non-drinker (finding) Lexy Oropeza - External History of Social function 2023-05-23 00:00:00 2023-05-23 00:00:00 Lexy Oropeza - External Tobacco use and exposure 2023-01-18 00:00:00 2023-01-18 00:00:00 Smokeless tobacco non-user Lexy Oropeza - External Exposure to SARS-CoV-2 (event) 2021-04-17 00:00:00 2021-05-17 12:04:00 Not sure [facility] Sex Assigned At 1965 00:00:00 1965 00:00:00 Lexy Oropeza - External Smoking Status Start Date Stop Date Source Never smoked tobacco Lexy Oropeza - External Tobacco smoking consumption unknown [facility] Medications Ordered Medication Name Filled Medication Name Start Date Stop Date Current Medication? Ordering Clinician Indication Dosage Frequency Signature (SIG) Comments Components Source Bilateral Injection: Methylpredn isolone Acetate (Depo-Medro l) 40 mg/ml, 80mg - Physician Administere d (J1030) 10-14 18:45: 00 10-14 18:38 :00 No [id number] 80mg Lexy chacon predniSONE (DELTASONE) 10 MG oral tablet 10-14 00:00: 00 Yes [id number] 10mg Take 1 tablet (10 mg total) by mouth daily. Lexy chacon Triamcinolo ne Acetonide 0.1 % apply externally Cream 10-14 00:00: 00 Yes [id number] Apply to affected area twice daily. Lexy chacon Fluocinonid e 0.05 % apply externally Ointment 10-14 00:00: 00 Yes [id number] Apply to affected areas twice daily for three weeks.. Lexy chacon FLUTICASONE PROPIONATE, NASAL, (Flonase Allergy Relief) 50 MCG/ACT nasal Suspension 10-13 00:00: 00 Yes [id number] 50ug Use 1 spray (50 mcg total) in each nostril 2 times daily. Lexy chacon Ketoconazol e 2 % apply externally Cream 10-12 00:00: 00 Yes [id number] Apply to skin daily for 14 days. Lexy chacon LISINOPRIL- HCTZ 20-12.5 MG oral Tablet 10-07 00:00: 00 Yes [id number] 2{tbl} Take 2 tablets by mouth daily. Lexy chacon Sildenafil Citrate 100 MG oral Tablet 10-07 00:00: 00 Yes [id number] 100mg QD Take 1 tablet (100 mg total) by mouth daily as needed. Lexy chacon TESTOSTERON E CYPIONATE IM 09-19 16:33: 46 09-19 00:00 :00 No Inject into the muscle Lexy chacon Atorvastati n Calcium 40 MG oral Tablet 09-19 00:00: 00 Yes [id number] 20mg Take 0.5 tablets (20 mg total) by mouth at bedtime. Lexy chacon Carvedilol 6.25 MG oral Tablet 09-13 00:00: 00 Yes [id number] 6.25mg Take 1 tablet (6.25 mg total) by mouth in the morning and 1 tablet (6.25 mg total) in the evening. Take with meals. Lexy chacon TESTOSTERON E CYPIONATE IM 2022-09 14:01: 56 Yes Inject into the muscle Lexy Landis Externa oswaldo methylPREDN ISolone (Medrol) 4 MG oral Tablet Therapy Pack 2022-09 00:00: 00 09-19 00:00 :00 No 1{aline} Take 1 aline by mouth See Admin Instructio ns Take as directed. Lexy Porrasa oswaldo Sildenafil Citrate 100 MG oral Tablet 2022-09 00:00: 00 Yes [id number] 100mg QD Take 1 tablet (100 mg total) by mouth daily as needed. Lexy chacon Atorvastati n Calcium 40 MG oral Tablet 2022-09 00:00: 00 09-19 00:00 :00 No [id number] 40mg Take 1 tablet (40 mg total) by mouth at bedtime. Lexy chacon Meclizine HCl 12.5 MG oral Tablet 2022-09 00:00: 00 09-19 00:00 :00 No [id number] 12.5mg QD Take 1 tablet (12.5 mg total) by mouth daily as needed for dizziness (vertigo). Lexy chacon Bilateral Injection: Methylpredn isolone Acetate (Depo-Medro l) 40 mg/ml, 80mg - Physician Administere d (J1030) 2022-09 16:30: 00 06-10 16:45 :00 No [id number] 80mg Lexy chacon TESTOSTERON E CYPIONATE IM 2022-09 11:13: 17 Yes Inject into the muscle Lexy chacon Carvedilol (Coreg) 6.25 MG oral Tablet 05-26 00:00: 00 Yes [id number] 6.25mg Take 1 tablet (6.25 mg total) by mouth in the morning and 1 tablet (6.25 mg total) in the evening. Take with meals. Lexy Landis Externa oswaldo Diclofenac Sodium 1 % apply externally Gel 05-26 00:00: 00 Yes [id number] 1{appli cation} Q.5D Apply 1 Applicatio n topically 2 times daily as needed (pain). Lexy chacon Tramadol HCl (ULTRAM) 50 MG oral Tablet 05-26 00:00: 00 09-19 00:00 :00 No [id number] 50mg Q.5D Take 1 tablet (50 mg total) by mouth 2 times daily as needed for pain. Lexy chacon predniSONE (DELTASONE) 10 MG oral tablet 05-26 00:00: 00 09-02 00:00 :00 No [id number] 10mg Take 1 tablet (10 mg total) by mouth daily. eLxy chacon Diclofenac Sodium 75 MG oral Tablet Delayed Response 05-26 00:00: 00 05-26 00:00 :00 No [id number] 75mg QD Take 1 tablet (75 mg total) by mouth daily as needed. Lexy chacon TESTOSTERON E CYPIONATE IM 05-23 17:47: 54 Yes Inject into the muscle Lexy chacon Sildenafil Citrate 100 MG oral Tablet 05-19 00:00: 00 Yes [id number] 100mg QD Take 1 tablet (100 mg total) by mouth daily as needed. Lexy chacon Ketoconazol e 2 % apply externally Cream 05-19 00:00: 00 Yes [id number] Apply to skin daily for 14 days. Lexy chacon Diclofenac Sodium 75 MG oral Tablet Delayed Response 05-19 00:00: 00 05-26 00:00 :00 No [id number] 75mg Q.5D Take 1 tablet (75 mg total) by mouth 2 times daily as needed. Lexy chacon Azithromyci n 250 MG oral Tablet 05-12 00:00: 00 05-19 00:00 :00 No [id number] Take 2 tablets by mouth on day 1 then 1 tablet by mouth daily for 4 days thereafter .. Lexy chacon Benzonatate 100 MG oral Capsule 05-12 00:00: 00 05-19 00:00 :00 No [id number] 100mg [id number] 3D Take 1 capsule (100 mg total) by mouth 3 times daily as needed for cough. Lexy chacon LISINOPRIL- HCTZ 20-12.5 MG oral Tablet 04-05 00:00: 00 Yes [id number] 2{tbl} Take 2 tablets by mouth daily Lexy chacon Carvedilol (Coreg) 3.125 MG oral Tablet 04-05 00:00: 00 05-26 00:00 :00 No [id number] 3.125mg Take 1 tablet (3.125 mg total) by mouth in the morning and 1 tablet (3.125 mg total) in the evening. Take with meals. Lexy chacon Sildenafil Citrate 50 MG oral Tablet 04-05 00:00: 00 05-19 00:00 :00 No [id number] 50mg QD Take 1 tablet (50 mg total) by mouth daily as needed Lxey chacon TESTLORRIEON E CYPIONATE IM 04-01 09:04: 24 Yes Inject into the muscle Lexy Vacaglutide -Mg t Management 0.25 MG/0.5ML Subcutaneou s Solution Auto-inject or 04-01 00:00: 00 Yes [id number] 104 .25mg Inject 0.25 mg into the skin once a week Lexy chacon Ketoconazol e 2 % apply externally Cream 04-01 00:00: 00 05-19 00:00 :00 No [id number] Apply to skin daily for 14 days Lexy chacon Atorvastati n Calcium 40 MG oral Tablet 03-02 00:00: 00 Yes 40mg Take 1 tablet (40 mg total) by mouth at bedtime. Lexy chacon Sildenafil Citrate 50 MG oral Tablet 02-02 12:01: 20 02-02 00:00 :00 No 50mg QD Take 1 tablet (50 mg total) by mouth daily as needed Lexy chacon TESTOSTERON E CYPIONATE IM 02-02 11:49: 44 Yes Inject into the muscle Lexy chacon Sildenafil Citrate 50 MG oral Tablet 02-02 00:00: 00 Yes [id number] 50mg QD Take 1 tablet (50 mg total) by mouth daily as needed Lexy chacon Metformin HCl 500 MG oral Tablet 02-02 00:00: 00 04-01 00:00 :00 No [id number] 500mg Take 1 tablet (500 mg total) by mouth daily (with breakfast) Lexy chacon TESTOSTERON E CYPIONATE IM 02-01 14:17: 15 Yes Inject into the muscle Lexy chacon Sildenafil Citrate 50 MG oral Tablet 02-01 14:17: 15 Yes 50mg QD Take 1 tablet (50 mg total) by mouth daily as needed Lexy chacon Erythromyci n 5 MG/GM ophthalmic Ointment 02-01 00:00: 00 Yes [id number] 1cm Apply 1 cm to eye nightly Lexy chacon [place]-3 Fatty Acids (Fish Oil) 1000 MG oral Capsule 01-21 00:00: 00 05-26 00:00 :00 No [id number] 1000mg Take 1 capsule (1,000 mg total) by mouth 2 times daily Lexy chacon Amlodipine Besylate 10 MG oral Tablet 01-19 15:37: 25 01-19 00:00 :00 No 10mg Take 1 tablet (10 mg total) by mouth daily Lexy chacon LISINOPRIL- HCTZ 20-25 MG oral Tablet 01-19 15:30: 51 01-19 00:00 :00 No 1{tbl} Take 1 tablet by mouth daily Lexy chacon Valacyclovi r HCl 1 g oral Tablet 01-19 15:28: 47 01-19 00:00 :00 No 1000mg Take 1 tablet (1,000 mg total) by mouth 2 times daily Lexy chacon TESTOSTERON E CYPIONATE IM 01-19 15:11: 45 Yes Inject into the muscle Lexy chacon Sildenafil Citrate 50 MG oral Tablet 01-19 15:11: 45 Yes 50mg QD Take 1 tablet (50 mg total) by mouth daily as needed Lexy chacon LISINOPRIL- HCTZ 20-12.5 MG oral Tablet 01-19 00:00: 00 Yes [id number] 2{tbl} Take 2 tablets by mouth daily Lexy chacon Carvedilol (Coreg) 3.125 MG oral Tablet 01-19 00:00: 00 Yes [id number] 3.125mg Take 1 tablet (3.125 mg total) by mouth in the morning and 1 tablet (3.125 mg total) in the evening. Take with meals. Lexy chacon TAKE 1 TABLET BY MOUTH DIRECTED 30 MINUTES PRIOR TO INTERCOURSE 04-26 00:00: 00 No TAKE 1 TABLET BY MOUTH DIRECTED 30 MINUTES PRIOR TO INTERCOURSE 04-26 00:00: 00 No TAKE 1 TABLET BY MOUTH DIRECTED 30 MINUTES PRIOR TO INTERCOURSE 04-26 00:00: 00 No TAKE 1 TABLET BY MOUTH DIRECTED 30 MINUTES PRIOR TO INTERCOURSE 04-26 00:00: 00 No atorvastati n 20 mg tablet 02-08 00:00: 00 No 1mg metformin 500 mg tablet 02-08 00:00: 00 No 1mg Bromfed DM 2 mg-30 mg-10 mg/5 mL oral syrup 02-08 00:00: 00 No 10mg/5 mL atorvastati n 20 mg tablet 02-08 00:00: 00 No 1mg metformin 500 mg tablet 02-08 00:00: 00 No 1mg Bromfed DM 2 mg-30 mg-10 mg/5 mL oral syrup 02-08 00:00: 00 No 10mg/5 mL atorvastati n 20 mg tablet 02-08 00:00: 00 No 1mg metformin 500 mg tablet 02-08 00:00: 00 No 1mg Bromfed DM 2 mg-30 mg-10 mg/5 mL oral syrup 0 - 00:00: 00 No 10mg/5 mL atorvastati n 20 mg tablet 02-08 00:00: 00 No 1mg metformin 500 mg tablet 02-08 00:00: 00 No 1mg Bromfed DM 2 mg-30 mg-10 mg/5 mL oral syrup 02-08 00:00: 00 No 10mg/5 mL Viagra 50 mg tablet 01-08 00:00: 00 No 1mg Dose Unknown 01-08 00:00: 00 No Viagra 50 mg tablet 0 01-08 00:00: 00 No 1mg Dose Unknown 01-08 00:00: 00 No Viagra 50 mg tablet 01-08 00:00: 00 No 1mg Dose Unknown 01-08 00:00: 00 No Viagra 50 mg tablet 01-08 00:00: 00 No 1mg Dose Unknown 01-08 00:00: 00 No lisinopril 20 mg-hydrochl orothiazide 25 mg tablet 0 - 00:00: 00 No 2mg Dose Unknown - 00:00: 00 No lisinopril 20 mg-hydrochl orothiazide 25 mg tablet 0 - 00:00: 00 No 2mg Dose Unknown - 00:00: 00 No lisinopril 20 mg-hydrochl orothiazide 25 mg tablet 0 - 00:00: 00 No 2mg Dose Unknown - 00:00: 00 No lisinopril 20 mg-hydrochl orothiazide 25 mg tablet 0 - 00:00: 00 No 2mg Dose Unknown - 00:00: 00 No dexamethaso ne (DECADRON PHOSPHATE) injection 10 mg 05-17 18:30: 00 05-17 17:32 :00 No 10mg 10 mg, Oral, ONCE, 1 dose, 05/17/21 at 1330, Routine [facility] ketorolac (TORADOL) injection 30 mg 05-17 18:30: 00 05-17 17:31 :00 No 30mg 30 mg, Intramuscu lar, ONCE, 1 dose, 05/17/21 at 1330, CONN[facility] : DWAYNE [place] [facility] cyclobenzap rine 10 mg tablet 05-17 00:00: 00 Yes [id number] 10mg Take 1 tablet by mouth 3 (three) times daily as needed for Muscle Spasms. [facility] ibuprofen 800 mg tablet 05-17 00:00: 00 Yes [id number] 800mg Take 1 tablet by mouth every 6 (six) hours as needed for Pain (scale 4-6). [facility] lisinopril 20 mg-hydrochl orothiazide 25 mg tablet 02-10 00:00: 00 No 2mg Viagra 50 mg tablet 02-10 00:00: 00 No 1mg Dose Unknown 02-10 00:00: 00 No lisinopril 20 mg-hydrochl orothiazide 25 mg tablet 02-10 00:00: 00 No 2mg Viagra 50 mg tablet 02-10 00:00: 00 No 1mg Dose Unknown 02-10 00:00: 00 No lisinopril 20 mg-hydrochl orothiazide 25 mg tablet 02-10 00:00: 00 No 2mg Viagra 50 mg tablet 02-10 00:00: 00 No 1mg Dose Unknown 02-10 00:00: 00 No lisinopril 20 mg-hydrochl orothiazide 25 mg tablet 02-10 00:00: 00 No 2mg Viagra 50 mg tablet 02-10 00:00: 00 No 1mg Dose Unknown 02-10 00:00: 00 No Dose Unknown 12-10 00:00: 00 No Dose Unknown 12-10 00:00: 00 No Dose Unknown 2021-0 4-07 00:00: 00 No Dose Unknown 2021-0 4-07 00:00: 00 No Dose Unknown 2021-0 4-07 00:00: 00 No Dose Unknown 1-0 4-07 00:00: 00 No Dose Unknown 1-0 4-07 00:00: 00 No Dose Unknown 2021-0 4-07 00:00: 00 No Dose Unknown 2021-0 1-06 00:00: 00 No gemfibrozil 600 mg tablet 2021-0 1-06 00:00: 00 No 1mg Dose Unknown 1-0 1-06 00:00: 00 No Dose Unknown 1-0 1-06 00:00: 00 No Dose Unknown 2021-0 1-06 00:00: 00 No gemfibrozil 600 mg tablet 2021-0 1-06 00:00: 00 No 1mg Dose Unknown 1-0 1-06 00:00: 00 No Dose Unknown 1-0 1-06 00:00: 00 No Dose Unknown 1-0 1-06 00:00: 00 No gemfibrozil 600 mg tablet 1-0 1-06 00:00: 00 No 1mg Dose Unknown 1-0 1-06 00:00: 00 No Dose Unknown 1-0 1-06 00:00: 00 No Dose Unknown 1-0 1-06 00:00: 00 No gemfibrozil 600 mg tablet 1-0 1-06 00:00: 00 No 1mg Dose Unknown 1-0 1-06 00:00: 00 No Dose Unknown 1-0 1-06 00:00: 00 No Dose Unknown 2019-1 0-02 00:00: 00 No Dose Unknown 2019-1 0-02 00:00: 00 No Dose Unknown 2019-1 0-02 00:00: 00 No Dose Unknown 2019-1 0-02 00:00: 00 No Dose Unknown 2019-1 0-02 00:00: 00 No Dose Unknown 2019-1 0-02 00:00: 00 No Dose Unknown 2019-1 0-02 00:00: 00 No Dose Unknown 2019-1 0-02 00:00: 00 No Dose Unknown 2019-1 0-02 00:00: 00 No Dose Unknown 2019-1 0-02 00:00: 00 No Dose Unknown 2020-1 0-02 00:00: 00 No Dose Unknown 2019-09 0-02 00:00: 00 No lisinopril 20 mg-hydrochl orothiazide 12.5 mg tablet 0 6-16 00:00: 00 No 2mg ibuprofen 800 mg tablet 0 616 00:00: 00 No 1mg Dose Unknown 0 6-16 00:00: 00 No lisinopril 20 mg-hydrochl orothiazide 12.5 mg tablet 0 6-16 00:00: 00 No 2mg ibuprofen 800 mg tablet 0 616 00:00: 00 No 1mg Dose Unknown 0 6-16 00:00: 00 No lisinopril 20 mg-hydrochl orothiazide 12.5 mg tablet 0 16 00:00: 00 No 2mg ibuprofen 800 mg tablet 0 616 00:00: 00 No 1mg Dose Unknown 0 6-16 00:00: 00 No lisinopril 20 mg-hydrochl orothiazide 12.5 mg tablet 0 16 00:00: 00 No 2mg ibuprofen 800 mg tablet 0 16 00:00: 00 No 1mg Dose Unknown 0 6-16 00:00: 00 No Dose Unknown 0 2-14 00:00: 00 No Dose Unknown 0 2-14 00:00: 00 No Dose Unknown 0 2-14 00:00: 00 No Dose Unknown 0 2-14 00:00: 00 No lisinopril 20 mg-hydrochl orothiazide 12.5 mg tablet 0 2-10 00:00: 00 No 2mg nitroglycer in 0.4 mg sublingual tablet 0 2-10 00:00: 00 No 1mg lisinopril 20 mg-hydrochl orothiazide 12.5 mg tablet 0 2-10 00:00: 00 No 2mg lovastatin 40 mg tablet 0 2-10 00:00: 00 No 1mg nitroglycer in 0.4 mg sublingual tablet 0 2-10 00:00: 00 No 1mg lovastatin 40 mg tablet 0 2-10 00:00: 00 No 1mg lisinopril 20 mg-hydrochl orothiazide 12.5 mg tablet 0 2-10 00:00: 00 No 2mg nitroglycer in 0.4 mg sublingual tablet 0 2-10 00:00: 00 No 1mg lovastatin 40 mg tablet 0 2-10 00:00: 00 No 1mg lisinopril 20 mg-hydrochl orothiazide 12.5 mg tablet 0 2-10 00:00: 00 No 2mg nitroglycer in 0.4 mg sublingual tablet 0 2-10 00:00: 00 No 1mg lovastatin 40 mg tablet 2 00:00: 00 No 1mg lovastatin 40 mg tablet 2017-09 2-14 00:00: 00 No 1mg lovastatin 40 mg tablet 2017-09 2-14 00:00: 00 No 1mg lovastatin 40 mg tablet 2017-09 2-14 00:00: 00 No 1mg lovastatin 40 mg tablet 2017-09 2-14 00:00: 00 No 1mg lisinopril 20 mg-hydrochl orothiazide 12.5 mg tablet 2017-09 2-12 00:00: 00 No 2mg lisinopril 20 mg-hydrochl orothiazide 12.5 mg tablet 2017-09 2-12 00:00: 00 No 2mg lisinopril 20 mg-hydrochl orothiazide 12.5 mg tablet 2017-09 2-12 00:00: 00 No 2mg lisinopril 20 mg-hydrochl orothiazide 12.5 mg tablet 2017-09 2-12 00:00: 00 No 2mg lisinopril 20 mg-hydrochl orothiazide 12.5 mg tablet 0 16 00:00: 00 No 2mg simvastatin 20 mg tablet 0 16 00:00: 00 No 1mg lisinopril 20 mg-hydrochl orothiazide 12.5 mg tablet 16 00:00: 00 No 2mg simvastatin 20 mg tablet 16 00:00: 00 No 1mg lisinopril 20 mg-hydrochl orothiazide 12.5 mg tablet 16 00:00: 00 No 2mg simvastatin 20 mg tablet 0 16 00:00: 00 No 1mg lisinopril 20 mg-hydrochl orothiazide 12.5 mg tablet 16 00:00: 00 No 2mg simvastatin 20 mg tablet 0 5-16 00:00: 00 No 1mg lisinopril 20 mg-hydrochl orothiazide 12.5 mg tablet 0 4-16 00:00: 00 No 2mg lisinopril 20 mg-hydrochl orothiazide 12.5 mg tablet 416 00:00: 00 No 2mg lisinopril 20 mg-hydrochl orothiazide 12.5 mg tablet 0 -16 00:00: 00 No 2mg lisinopril 20 mg-hydrochl orothiazide 12.5 mg tablet 16 00:00: 00 No 2mg lovastatin 20 mg tablet 2-14 00:00: 00 No 1mg lovastatin 20 mg tablet 214 00:00: 00 No 1mg lovastatin 20 mg tablet 214 00:00: 00 No 1mg lovastatin 20 mg tablet 214 00:00: 00 No 1mg ondansetron 4 mg disintegrat ing tablet 09 00:00: 00 Yes 4mg Take 1 tablet by mouth every 8 (eight) hours as needed for Nausea and Vomiting (N/V). [facility] benzonatate (TESSALON PERLES) 100 mg capsule 10-14 00:00: 00 Yes 100mg Take 1 capsule by mouth every 8 (eight) hours as needed for Cough. [facility] lisinopril 20 mg-hydrochl orothiazide 12.5 mg tablet 10-11 00:00: 00 No 2mg lisinopril 20 mg-hydrochl orothiazide 12.5 mg tablet 10-11 00:00: 00 No 2mg lisinopril 20 mg-hydrochl orothiazide 12.5 mg tablet - 00:00: 00 No 2mg lisinopril 20 mg-hydrochl orothiazide 12.5 mg tablet 10-11 00:00: 00 No 2mg lisinopril 20 mg-hydrochl orothiazide 12.5 mg tablet 03-29 00:00: 00 No 2mg lisinopril 20 mg-hydrochl orothiazide 12.5 mg tablet 03-29 00:00: 00 No 2mg lisinopril 20 mg-hydrochl orothiazide 12.5 mg tablet 03-29 00:00: 00 No 2mg lisinopril 20 mg-hydrochl orothiazide 12.5 mg tablet 03-29 00:00: 00 No 2mg lisinopril 20 mg-hydrochl orothiazide 12.5 mg tablet 02-18 00:00: 00 No 2mg lisinopril 20 mg-hydrochl orothiazide 12.5 mg tablet 02-18 00:00: 00 No 2mg lisinopril 20 mg-hydrochl orothiazide 12.5 mg tablet 02-18 00:00: 00 No 2mg lisinopril 20 mg-hydrochl orothiazide 12.5 mg tablet 02-18 00:00: 00 No 2mg lisinopril 20 mg-hydrochl orothiazide 12.5 mg tablet 10-08 00:00: 00 No 2mg lisinopril 20 mg-hydrochl orothiazide 12.5 mg tablet 10-08 00:00: 00 No 2mg lisinopril 20 mg-hydrochl orothiazide 12.5 mg tablet 10-08 00:00: 00 No 2mg lisinopril 20 mg-hydrochl orothiazide 12.5 mg tablet 10-08 00:00: 00 No 2mg nitroglycer in 0.4 mg sublingual tablet 03-11 00:00: 00 No 1mg nitroglycer in 0.4 mg sublingual tablet 03-11 00:00: 00 No 1mg nitroglycer in 0.4 mg sublingual tablet 03-11 00:00: 00 No 1mg nitroglycer in 0.4 mg sublingual tablet 03-11 00:00: 00 No 1mg lisinopril 20 mg-hydrochl orothiazide 12.5 mg tablet 03-07 00:00: 00 No 2mg lisinopril 20 mg-hydrochl orothiazide 12.5 mg tablet 03-07 00:00: 00 No 2mg lisinopril 20 mg-hydrochl orothiazide 12.5 mg tablet 03-07 00:00: 00 No 2mg lisinopril 20 mg-hydrochl orothiazide 12.5 mg tablet 03-07 00:00: 00 No 2mg lisinopril 20 mg-hydrochl orothiazide 12.5 mg tablet 11-23 00:00: 00 No 2mg lisinopril 20 mg-hydrochl orothiazide 12.5 mg tablet 11-23 00:00: 00 No 2mg lisinopril 20 mg-hydrochl orothiazide 12.5 mg tablet 11-23 00:00: 00 No 2mg lisinopril 20 mg-hydrochl orothiazide 12.5 mg tablet 11-23 00:00: 00 No 2mg Catapres 0.1 mg tablet 11-21 00:00: 00 No 1mg Catapres 0.1 mg tablet 11-21 00:00: 00 No 1mg Catapres 0.1 mg tablet 11-21 00:00: 00 No 1mg Catapres 0.1 mg tablet 11-21 00:00: 00 No 1mg lisinopril 10 mg-hydrochl orothiazide 12.5 mg tablet 11-14 00:00: 00 No 1mg lisinopril 10 mg-hydrochl orothiazide 12.5 mg tablet 11-14 00:00: 00 No 1mg lisinopril 10 mg-hydrochl orothiazide 12.5 mg tablet 11-14 00:00: 00 No 1mg lisinopril 10 mg-hydrochl orothiazide 12.5 mg tablet 11-14 00:00: 00 No 1mg Immunizations Ordered Immunization Name Filled Immunization Name Date Status Comments Source Influenza Virus Vaccine, No Preserv, age 6 months and up 2023-04-23 00:00:00 Completed Lexy Landis External Hep A/ Hep B Combo 2023-04-23 00:00:00 Completed Lexy Aguero Pneumococcal Vaccine, Conjugate 20 2023-04-23 00:00:00 Completed Lexy Aguero Influenza Virus Vaccine, No Preserv, age 6 months and up Unknown Completed Lexy Landis External Hep A/ Hep B Combo Unknown Completed K elsey Seybold - External Pneumococcal Vaccine, Conjugate 20 Unknown Completed Lexy Seybold - External Hep A/ Hep B Combo Unknown Completed K elsey Seybold - External Tdap- (Boostrix, Adacel) Unknown Completed Lexy Seybold - External Shingles IM (Shingrix) Unknown Completed Lexy Seybold - External Influenza Virus Vaccine, No Preserv, age 6 months and up Unknown Completed Lexy Seybold - External Hep A/ Hep B Combo Unknown Completed K elsey Seybold - External Pneumococcal Vaccine, Conjugate 20 Unknown Completed Lexy Seybold - External Hep A/ Hep B Combo Unknown Completed K elsey Seybold - External Tdap- (Boostrix, Adacel) Unknown Completed Lexy Seybold - External Shingles IM (Shingrix) Unknown Completed Lexy Seybold - External Influenza Virus Vaccine, No Preserv, age 6 months and up Unknown Completed Lexy Seybold - External Hep A/ Hep B Combo Unknown Completed K elsey Seybold - External Pneumococcal Vaccine, Conjugate 20 Unknown Completed Lexy Seybold - External Hep A/ Hep B Combo Unknown Completed K elsey Seybold - External Tdap- (Boostrix, Adacel) Unknown Completed Lexy Seybold - External Shingles IM (Shingrix) Unknown Completed Lexy Seybold - External Influenza Virus Vaccine, No Preserv, age 6 months and up Unknown Completed Lexy Seybold - External Hep A/ Hep B Combo Unknown Completed K elsey Seybold - External Pneumococcal Vaccine, Conjugate 20 Unknown Completed Lexy Seybold - External Hep A/ Hep B Combo Unknown Completed K elsey Seybold - External Tdap- (Boostrix, Adacel) Unknown Completed Lexy Seybold - External Shingles IM (Shingrix) Unknown Completed Lexy Seybold - External Influenza Virus Vaccine, No Preserv, age 6 months and up Unknown Completed Lexy Seybold - External Hep A/ Hep B Combo Unknown Completed K elsey Seybold - External Pneumococcal Vaccine, Conjugate 20 Unknown Completed Lexy Seybold - External Hep A/ Hep B Combo Unknown Completed K elsey Seybold - External Tdap- (Boostrix, Adacel) Unknown Completed Lexy Seybold - External Shingles IM (Shingrix) Unknown Completed Lexy Seybold - External Influenza Virus Vaccine, No Preserv, age 6 months and up Unknown Completed Lexy Seybold - External Hep A/ Hep B Combo Unknown Completed K elsey Seybold - External Pneumococcal Vaccine, Conjugate 20 Unknown Completed Lexy Seybold - External Hep A/ Hep B Combo Unknown Completed K elsey Seybold - External Tdap- (Boostrix, Adacel) Unknown Completed Lexy Seybold - External Shingles IM (Shingrix) Unknown Completed Lexy Seybold - External Influenza Virus Vaccine, No Preserv, age 6 months and up Unknown Completed Lexy Seybold - External Hep A/ Hep B Combo Unknown Completed K elsey Seybold - External Pneumococcal Vaccine, Conjugate 20 Unknown Completed Lexy Seybold - External Hep A/ Hep B Combo Unknown Completed K elsey Seybold - External Tdap- (Boostrix, Adacel) Unknown Completed Lexy Seybold - External Shingles IM (Shingrix) Unknown Completed Lexy Seybold - External Influenza Virus Vaccine, No Preserv, age 6 months and up Unknown Completed Lexy Seybold - External Hep A/ Hep B Combo Unknown Completed K elsey Seybold - External Pneumococcal Vaccine, Conjugate 20 Unknown Completed Lexy Seybold - External Hep A/ Hep B Combo Unknown Completed K elsey Seybold - External Tdap- (Boostrix, Adacel) Unknown Completed Lexy Seybold - External Shingles IM (Shingrix) Unknown Completed Lexy Seybold - External Influenza Virus Vaccine, No Preserv, age 6 months and up Unknown Completed Lexy Seybold - External Hep A/ Hep B Combo Unknown Completed K elsey Seybold - External Pneumococcal Vaccine, Conjugate 20 Unknown Completed Lexy Seybold - External Hep A/ Hep B Combo Unknown Completed K elsey Seybold - External Tdap- (Boostrix, Adacel) Unknown Completed Lexy Seybold - External Shingles IM (Shingrix) Unknown Completed Lexy Seybold - External Influenza Virus Vaccine, No Preserv, age 6 months and up Unknown Completed Lexy Seybold - External Hep A/ Hep B Combo Unknown Completed K elsey Seybold - External Pneumococcal Vaccine, Conjugate 20 Unknown Completed Lexy Seybold - External Hep A/ Hep B Combo Unknown Completed Elizabeth Garciaold - External Tdap- (Boostrix, Adacel) Unknown Completed Lexy Burgosybold - External Shingles IM (Shingrix) Unknown Completed Lexy Burgosybold - External Vital Signs Vital Name Observation Time Observation Value Comments S ource Body height 2023-10-14 17:01:00 170.2 cm Rosa M ey Seybold - External Body weight 2023-10-14 17:01:00 128.822 kg Rosa M ey Seybold - External BMI 2023-10-14 17:01:00 44.48 kg/m2 Rosa M ey Seybold - External Systolic blood pressure 2023-09-19 22:29:00 130 mm[Hg] Lexy Burgosybo ld - External Diastolic blood pressure 2023-09-19 22:29:00 80 mm[Hg] Lexy Burgosybo ld - External Heart rate 2023-09-19 22:10:00 77 /min Renetta y Seybold - External Body temperature 2023-09-19 22:10:00 36.67 Mulu Lexy Seybold - External Respiratory rate 2023-09-19 22:10:00 18 /min Lexy Burgosybold - External Body height 2023-09-19 22:10:00 170.2 cm Rosa M ey Seybold - External Body weight 2023-09-19 22:10:00 131.543 kg Rosa M ey Seybold - External BMI 2023-09-19 22:10:00 45.42 kg/m2 Rosa M ey Seybold - External Oxygen saturation in Arterial blood by Pulse oximetry 2023-09-19 22:10:00 95 /min Lexy Burgosybo ld - External Respiratory rate 2023-09-02 19:59:00 18 /min Lexy Burgosybold - External Body height 2023-09-02 19:59:00 170.2 cm Rosa M ey Seybold - External Body weight 2023-09-02 19:59:00 129.445 kg Rosa M ey Seybold - External BMI 2023-09-02 19:59:00 44.70 kg/m2 Rosa M ey Seybold - External Body height 2023-06-10 16:12:00 170.2 cm Rosa M ey Seybold - External Body weight 2023-06-10 16:12:00 128.822 kg Rosa M ey Seybold - External BMI 2023-06-10 16:12:00 44.48 kg/m2 Rosa M ey Seybold - External Systolic blood pressure 2023-05-26 15:06:00 140 mm[Hg] Lexy Seybo ld - External Diastolic blood pressure 2023-05-26 15:06:00 90 mm[Hg] Lexy Seybo ld - External Heart rate 2023-05-26 14:45:00 74 /min Kelse y Seybold - External Respiratory rate 2023-05-26 14:45:00 15 /min Lexy Seybold - External Body height 2023-05-26 14:45:00 170.2 cm Rosa M ey Seybold - External Body weight 2023-05-26 14:45:00 128.822 kg Rosa M ey Seybold - External BMI 2023-05-26 14:45:00 44.48 kg/m2 Rosa M ey Seybold - External Oxygen saturation in Arterial blood by Pulse oximetry 2023-05-26 14:45:00 99 /min Lexy Seybo ld - External Systolic blood pressure 2023-05-19 20:41:00 140 mm[Hg] Lexy Seybo ld - External Diastolic blood pressure 2023-05-19 20:41:00 90 mm[Hg] Lexy Seybo ld - External Heart rate 2023-05-19 20:26:00 84 /min Kelse y Seybold - External Body temperature 2023-05-19 20:26:00 36.61 Mulu Lexy Seybold - External Respiratory rate 2023-05-19 20:26:00 15 /min Lexy Seybold - External Body height 2023-05-19 20:26:00 170.2 cm Rosa M ey Seybold - External Body weight 2023-05-19 20:26:00 128.822 kg Rosa M ey Seybold - External BMI 2023-05-19 20:26:00 44.48 kg/m2 Rosa M ey Seybold - External Oxygen saturation in Arterial blood by Pulse oximetry 2023-05-19 20:26:00 99 /min Elxy Seybo ld - External Systolic blood pressure 2023-04-01 14:02:00 132 mm[Hg] Lexy Seybo ld - External Diastolic blood pressure 2023-04-01 14:02:00 84 mm[Hg] Lexy Seybo ld - External Heart rate 2023-04-01 14:02:00 79 /min Kelse y Seybold - External Body temperature 2023-04-01 14:02:00 35.83 Mulu Lexy Seybold - External Body height 2023-04-01 14:02:00 170.2 cm Rosa M ey Seybold - External Body weight 2023-04-01 14:02:00 128.822 kg Rosa M ey Seybold - External BMI 2023-04-01 14:02:00 44.48 kg/m2 Rosa M ey Seybold - External Oxygen saturation in Arterial blood by Pulse oximetry 2023-04-01 14:02:00 92 /min Lexy Seybo ld - External Systolic blood pressure 2023-02-02 16:45:00 124 mm[Hg] Lexy Seybo ld - External Diastolic blood pressure 2023-02-02 16:45:00 80 mm[Hg] Lexy Seybo ld - External Heart rate 2023-02-02 16:45:00 73 /min Kelse y Seybold - External Body temperature 2023-02-02 16:45:00 36.33 Mulu Lexy Seybold - External Respiratory rate 2023-02-02 16:45:00 15 /min Lexy Seybold - External Body height 2023-02-02 16:45:00 170.2 cm Rosa M ey Seybold - External Body weight 2023-02-02 16:45:00 128.822 kg Rosa M ey Seybold - External BMI 2023-02-02 16:45:00 44.48 kg/m2 Rosa M ey Seybold - External Systolic blood pressure 2023-01-19 20:10:00 148 mm[Hg] Lexy Seybo ld - External Diastolic blood pressure 2023-01-19 20:10:00 95 mm[Hg] Lexy Seybo ld - External Heart rate 2023-01-19 20:10:00 82 /min Kelse y Seybold - External Body temperature 2023-01-19 20:10:00 36.5 Mulu Lexy Oropeza - External Respiratory rate 2023-01-19 20:10:00 19 /min Lexy Oropeza - External Body height 2023-01-19 20:10:00 170.2 cm Rosa M Oropeza - External Body weight 2023-01-19 20:10:00 127.914 kg Rosa M Oropeza - External BMI 2023-01-19 20:10:00 44.17 kg/m2 Rosa M Oropeza - External Systolic blood pressure 2021-05-17 17:07:58 138 mm[Hg] [facility] Diastolic blood pressure 2021-05-17 17:07:58 94 mm[Hg] [facility] Heart rate 2021-05-17 17:07:58 75 /min [facility] Body temperature 2021-05-17 17:07:58 36.94 Mulu [facility] Respiratory rate 2021-05-17 17:07:58 17 /min [facility] Body height 2021-05-17 17:05:00 170.2 cm [facility] Body weight 2021-05-17 17:05:00 117.935 kg [facility] BMI 2021-05-17 17:05:00 40.72 kg/m2 [facility] Oxygen saturation in Arterial blood by Pulse oximetry 2021-05-17 17:05:00 96 /min [facility] BP Systolic 2022-07-06 13:15:00 162 mm[Hg] BP [...] Procedures Procedure Date / Time Performed Performing Clinicia n Source XR LUMBAR SPINE 3 VW 2021-05-17 17:50:14 Russ [place] [facility] URINALYSIS 2021-05-17 17:37:[address] [facility] AND TREATMENT 2021-05-17 16:46:48 Doctor Unassigned, [place] [facility] Ekg 2018-08-16 00:00:00 26381 Ecg Routine Ecg W/least 12 Lds W/i r 2017-10-11 00:00:00 Plan of Care Planned Activity Planned Date Details Comments Source Goal Plan of Care Note [code = 66349-5] Goal Plan of Care Note [code = 93517-2] Goal Plan of Care Note [code = 13533-4] Goal Plan of Care Note [code = 02024-0] Goal Plan of Care Note [code = 78003-8] Goal Plan of Care Note [code = 22349-4] Goal Plan of Care Note [code = 93330-3] Goal Plan of Care Note [code = 91328-9] Goal Plan of Care Note [code = 07529-1] Goal Plan of Care Note [code = 28595-9] Goal Plan of Care Note [code = 41285-9] Goal Plan of Care Note [code = 07148-2] Goal Plan of Care Note [code = 54979-7] Goal Plan of Care Note [code = 45323-3] Goal Plan of Care Note [code = 45738-5] Goal Plan of Care Note [code = 39976-8] Goal Plan of Care Note [code = 20045-7] Goal Plan of Care Note [code = 55689-6] Goal Plan of Care Note [code = 81225-9] Goal Plan of Care Note [code = 03734-3] Goal Plan of Care Note [code = 68911-6] Goal Plan of Care Note [code = 81573-0] Goal Plan of Care Note [code = 02276-7] Goal Plan of Care Note [code = 61487-7] Goal Plan of Care Note [code = 68009-4] Goal Plan of Care Note [code = 28856-6] Goal Plan of Care Note [code = 99884-0] Goal Plan of Care Note [code = 21297-8] Goal Plan of Care Note [code = 14102-2] Goal Plan of Care Note [code = 77373-7] Goal Plan of Care Note [code = 97290-9] Goal Plan of Care Note [code = 48510-1] Goal Plan of Care Note [code = 34095-9] Goal Plan of Care Note [code = 84653-0] Goal Plan of Care Note [code = 93236-6] Goal Plan of Care Note [code = 41281-6] Goal Plan of Care Note [code = 32292-8] Goal Plan of Care Note [code = 33702-5] Goal Plan of Care Note [code = 97481-8] Goal Plan of Care Note [code = 57562-3] Goal Plan of Care Note [code = 74215-8] Goal Plan of Care Note [code = 77555-7] Goal Plan of Care Note [code = 84057-2] Goal Plan of Care Note [code = 06750-5] Goal Plan of Care Note [code = 55062-8] Goal Plan of Care Note [code = 17017-0] Goal Plan of Care Note [code = 60666-5] Goal Plan of Care Note [code = 29827-2] Goal Plan of Care Note [code = 84449-2] Goal Plan of Care Note [code = 71728-1] Goal Plan of Care Note [code = 05301-1] Goal Plan of Care Note [code = 44965-3] Goal Plan of Care Note [code = 01148-5] Goal Plan of Care Note [code = 99392-6] Goal Plan of Care Note [code = 26174-0] Goal Plan of Care Note [code = 96639-6] Goal Plan of Care Note [code = 52080-8] Goal Plan of Care Note [code = 06740-0] Goal Plan of Care Note [code = 01854-4] Goal Plan of Care Note [code = 02949-1] Goal Plan of Care Note [code = 44718-8] Goal Plan of Care Note [code = 28537-9] Goal Plan of Care Note [code = 75448-6] Goal Plan of Care Note [code = 74267-5] Goal Plan of Care Note [code = 26863-1] Goal Plan of Care Note [code = 25237-3] Goal Plan of Care Note [code = 28874-1] Goal Plan of Care Note [code = 30088-5] Goal Plan of Care Note [code = 81966-7] Goal Plan of Care Note [code = 94477-0] Goal Plan of Care Note [code = 93844-8] Goal Plan of Care Note [code = 94475-7] Goal Plan of Care Note [code = 47597-2] Goal Plan of Care Note [code = 55098-4] Goal Plan of Care Note [code = 73548-7] Goal Plan of Care Note [code = 82767-6] Goal Plan of Care Note [code = 76955-0] Goal Plan of Care Note [code = 12535-3] Goal Plan of Care Note [code = 90865-3] Goal Plan of Care Note [code = 66642-2] Goal Plan of Care Note [code = 17277-1] Goal Plan of Care Note [code = 33097-1] Goal Plan of Care Note [code = 67300-0] Goal Plan of Care Note [code = 64306-9] Goal Plan of Care Note [code = 99701-7] Goal Plan of Care Note [code = 25798-6] Goal Plan of Care Note [code = 42967-8] Goal Plan of Care Note [code = 61386-1] Goal Plan of Care Note [code = 58321-7] Goal Plan of Care Note [code = 35838-4] Goal Plan of Care Note [code = 04124-7] Goal Plan of Care Note [code = 19875-3] Goal Plan of Care Note [code = 29878-7] Encounters Start Date/Time End Date/Time Encounter Type Admission Type Attending [facility] Care Department Encounter ID Source 2023-12-15 14:45:00 2023-12-15 14:45:00 Outpatient BRIONNA CEBALLOS [id number] [facility] 2023-12-08 00:00:00 2023-12-08 00:00:00 Outpatient LEXY STAHL [id number] [facility] 2023-12-08 00:00:00 2023-12-08 00:00:00 Outpatient DIANN SADLER [id number] Lexy lidya 2023-12-08 00:00:00 2023-12-08 00:00:00 Outpatient DIANN SADLER [id number] Lexy Oropeza 2023-11-24 00:00:00 2023-11-24 00:00:00 Outpatient DIANN SADLER [id number] Lexy lidya 2023-11-19 00:00:00 2023-11-19 00:00:00 Outpatient DIANN SADLER [id number] [facility] 2023-11-17 13:45:00 2023-11-17 13:45:00 Outpatient NADEEM RASHMI LEXY STAHL [id number] [facility] 2023-11-02 00:00:00 2023-11-02 00:00:00 Outpatient MD LEXY SILVEIRA [id number] [facility] 2023-11-02 00:00:00 2023-11-02 00:00:00 Outpatient TRACY SIDHU [id number] [facility] 2023-10-28 00:00:00 2023-10-28 00:00:00 Outpatient DIANN SADLER [id number] [facility] 2023-10-25 08:30:00 2023-10-25 08:30:00 [id number] [facility] 00:00:00 2023-10-20 00:00:00 Outpatient ADRIANMIKEFERNANDA MARK LEXY STAHL [id number] [facility] 2023-10-18 16:15:00 2023-10-18 16:15:00 Outpatient DIANN SADLER [id number] [facility] 2023-10-14 15:00:00 2023-10-14 15:00:00 Outpatient BRIONNA CEBALLOS [id number] [facility] 2023-10-14 13:30:00 2023-10-14 13:30:00 Outpatient KAMI JUNIOR [id number] [facility] 2023-10-14 11:20:00 2023-10-14 11:20:00 Outpatient TRACY SIDHU [id number] [facility] 2023-10-14 00:00:00 2023-10-14 00:00:00 Outpatient MD LEXY SILVEIRA [id number] [facility] 2023-10-13 13:00:00 2023-10-13 13:00:00 Outpatient MANPREET RAINEY [id number] [facility] 2023-10-13 08:30:00 2023-10-13 08:30:00 Outpatient MARK GUNTER LEXY STAHL [id number] Lexy [facility] 2023-10-13 00:00:00 2023-10-13 00:00:00 Outpatient MARK GUNTER LEXY STAHL [id number] [facility] 2023-10-13 00:00:00 2023-10-13 00:00:00 Outpatient MD LEXY SILVEIRA [id number] [facility] 2023-10-13 00:00:00 2023-10-13 00:00:00 Outpatient TRACY SIDHU [id number] Lexy [facility] 2023-10-11 10:30:00 2023-10-11 10:30:00 Outpatient TRACY SIDHU [id number] [facility] 2023-10-11 00:00:00 2023-10-11 00:00:00 Outpatient PREDIANN HARPER [id number] [facility] 2023-10-05 00:00:00 2023-10-05 00:00:00 Outpatient DIANN SADLER [id number] [facility] 2023-09-30 15:00:00 2023-09-30 15:00:00 Outpatient LINNETTE BARNETT [id number] [facility] 2023-09-30 13:00:00 2023-09-30 13:00:00 Outpatient TRACY SIDHU [id number] Lexy Seybold 2023-09-19 16:45:00 2023-09-19 16:45:00 Outpatient DIANN SADLER [id number] Lexy Seybold 2023-09-19 16:45:00 2023-09-19 16:45:00 Outpatient LAB90 LEXY STAHL [id number] Lexy [facility] 2023-09-16 00:00:00 2023-09-16 00:00:00 Outpatient MD LEXY SILVEIRA [id number] [facility] 2023-09-15 00:00:00 2023-09-15 00:00:00 Outpatient DIANN SADLER LEXY STAHL [id number] [facility] 2023-09-14 00:00:00 2023-09-14 00:00:00 Outpatient DIANN SADLER LEXY STAHL [id number] [facility] 2023-09-13 10:30:00 2023-09-13 10:30:00 Outpatient DIANN SADLER LEXY [id number] [facility] 2023-09-12 16:25:00 2023-09-12 16:25:00 Outpatient TJ LEXY STAHL [id number] [facility] 2023-09-12 00:00:00 2023-09-12 00:00:00 Outpatient NAHUM TRACY LEXY STAHL [id number] Lexy [facility] 2023-09-12 00:00:00 2023-09-12 00:00:00 Outpatient DIANN SADLERNELLA STAHL [id number] [facility] 2023-09-12 00:00:00 2023-09-12 00:00:00 Outpatient DIANN SADLER LEXY STAHL [id number] [facility] 2023-09-10 13:05:19 2023-09-10 13:05:19 Outpatient SFA SFA [id number] Philip Lasha Codey 2023-09-03 13:46:36 2023-09-03 13:46:36 Outpatient SFA SFA [id number] Philip F Codey 2023-09-02 15:00:00 2023-09-02 15:00:00 Outpatient TRACY SIDHU [id number] [facility] 2023-09-02 14:40:00 2023-09-02 14:40:00 Outpatient LEXY STAHL [id number] [facility] 2023-09-01 16:00:00 2023-09-01 16:00:00 Outpatient ARMAND LEONE [id number] [facility] 2023-08-30 08:00:00 2023-08-30 08:00:00 Outpatient TRACY SIDHU LEXY STAHL [id number] [facility]23-08-27 12:47:20 2023-08-27 12:47:[address] [facility] [id number] Philip Alegre 2023-08-22 17:24:25 2023-08-22 17:24:[address] [facility] [id number] Philip [place] 2023-08-20 00:00:00 2023-08-20 00:00:00 Outpatient MARKDIANN Bae LEXY STAHL [id number] [facility] 2023-08-13 11:33:10 2023-08-13 11:33:[address] [facility] [id number] Philip Alegre 2023-08-09 14:40:13 2023-08-09 14:40:[address] [facility] [id number] Philip Aleg[place] 2023-07-30 11:45:59 2023-07-30 11:45:[address] [facility] [id number] Philip Colby Codey 2023-07-29 00:00:00 2023-07-29 00:00:00 Outpatient VIKTORIYALADIDIANNROGERIO STAHL [id number] [facility] 2023-07-29 00:00:00 2023-07-29 00:00:00 Outpatient VIKTORIYA DIANN STAHL [id number] [facility] 2023-07-16 12:30:40 2023-07-16 12:30:[address] [facility] [id number] Philip Colby [place] 2023-07-13 00:00:00 2023-07-13 00:00:00 Outpatient PRADEEP VEGA [id number] [facility] 2023-06-30 00:00:00 2023-06-30 00:00:00 Outpatient DIANN SADLER [id number] [facility] 2023-06-28 08:15:00 2023-06-28 08:15:00 Outpatient DIANN SADLER [id number] [facility] 2023-06-23 11:15:00 2023-06-23 11:15:00 Outpatient PREDIANN HARPER [id number] [facility] 2023-06-16 15:30:00 2023-06-16 15:30:00 Outpatient DIANN SADLER [id number] [facility] 2023-06-10 10:35:00 2023-06-10 10:35:00 Outpatient LEXY STAHL [id number] [facility] 2023-06-10 10:30:00 2023-06-10 10:30:00 Outpatient LEXY STAHL [id number] [facility]23-06-10 10:25:00 2023-06-10 10:25:00 Outpatient LEXY STAHL [id number] [facility] 2023-06-10 10:10:00 2023-06-10 10:10:00 Outpatient NAHUMTRACY LEX[facility] [id number] [facility]23-06-09 09:30:00 2023-06-09 09:30:00 Outpatient TRACY SIDHU [facility] [id number] [facility] 2023-06-08 14:04:14 2023-06-08 14:04:14 Outpatient SFA SFA [id number] Philip [place]leg[place] 2023-06-08 00:00:00 2023-06-08 00:00:00 Outpatient NAHUMTRACY CAMARENA LEXY [id number] [facility] 2023-06-01 11:53:01 2023-06-01 11:53:01 Outpatient SFA SFA [id number] Philip Aleg[place] 2023-05-31 00:00:00 2023-05-31 00:00:00 Outpatient DIANN SADLER LEXY [id number] [facility] 2023-05-31 00:00:00 2023-05-31 00:00:00 Outpatient DIANN SADLER LEXY [id number] [facility] 2023-05-30 13:42:48 2023-05-30 13:42:48 Outpatient SFA SFA [id number] Philip Aleg[place] 2023-05-27 00:00:00 2023-05-27 00:00:00 Outpatient PREZADIANN Bae [facility]EXY [id number] [facility] 2023-05-26 10:15:00 2023-05-26 10:15:00 Outpatient LAB90 LEXY LEXY [id number] [facility] 2023-05-26 10:00:00 2023-05-26 10:00:00 Outpatient PREZAS, DIANN STAHL LEXY [id number] [facility] 2023-05-26 09:40:00 2023-05-26 09:40:00 Outpatient LAB90 LEXY LEXY [id number] [facility] 2023-05-25 00:00:00 2023-05-25 00:00:00 Outpatient PREZAS, DIANN LEXY STAHL [id number] [facility] 2023-05-24 00:00:00 2023-05-24 00:00:00 Outpatient PREZAS, DIANN STAHL LEXY [id number] [facility] 2023-05-23 00:00:00 2023-05-23 00:00:00 Outpatient LUCERO MEEK STAHL [id number] [facility] 2023-05-19 15:30:00 2023-05-19 15:30:00 Outpatient PREZAS, DIANN LEXY STAHL [id number] [facility] 2023-05-12 11:45:00 2023-05-12 11:45:00 Outpatient DOLORES MALIK [id number] [facility] 2023-05-12 00:00:00 2023-05-12 00:00:00 Outpatient PRADEEP VEGA [id number] [facility] 2023-05-12 00:00:00 2023-05-12 00:00:00 Outpatient PRADEEP VEGA [id number] [facility] 2023-05-11 00:00:00 2023-05-11 00:00:00 [facility] PREZAS[id number] 00:00:00 2023-05-11 00:00:00 Outpatient MD LEXY SILVEIRA [id number] [facility] 2023-05-06 15:28:00 2023-05-06 15:28:00 Outpatient SFA SFA [id number] Philip Aleg[place] 2023-05-05 09:15:00 2023-05-05 09:15:00 Outpatient DIANN SADLER [id number] [facility] 2023-04-26 11:09:46 2023-04-26 11:09:46 Outpatient SFA SFA 08 Philip [place]leg[place] 2023-04-20 14:13:32 2023-04-20 14:13:32 Outpatient SFA SFA [id number] [place] 2023-04-20 00:00:00 2023-04-20 00:00:00 Outpatient DIANN SADLER [id number] [facility] 2023-04-18 00:00:00 2023-04-18 00:00:00 Outpatient MD LEXY SILVEIRA [id number] [facility] 2023-04-18 00:00:00 2023-04-18 00:00:00 Outpatient PRADEEP VEGA [id number] [facility] 2023-04-14 09:00:00 2023-04-14 09:00:00 [facility]AD[facility] VE[facility] [id number] [facility] 2023-04-11 10:28:19 2023-04-11 10:28:19 Outpatient SFA SFA [id number] [place] 2023-04-06 09:00:00 2023-04-06 09:00:00 Outpatient SANDRA LOPEZ [id number] [facility] 2023-04-05 00:00:00 2023-04-05 00:00:00 Outpatient DIANN SADLER [id number] [facility] 2023-04-03 00:00:00 2023-04-03 00:00:00 Outpatient PREZADIANN BaeNELLA STAHL [id number] [facility]23-04-01 09:00:00 2023-04-01 09:00:00 Outpatient PREDIANN HARPER LEXY [id number] [facility] 2023-04-01 00:00:00 2023-04-01 00:00:00 Outpatient DIANN SADLER LEXY STAHL [id number] [facility] 2023-03-31 11:51:33 2023-03-31 11:51:33 Outpatient SFA SFA [id number] Philip Alegre 2023-03-24 10:30:00 2023-03-24 10:30:[address], TECH LEXY STAHL [id number] [facility] 2023-03-23 16:30:00 2023-03-23 16:30:[address], TECH LEXY STAHL [id number] [facility] 2023-03-23 00:00:00 2023-03-23 00:00:00 Outpatient MD [facility] [id number] [facility]:00 2023-03-23 00:00:00 Outpatient DIANN SADLER LEXY STAHL [id number] [facility] 2023-03-18 16:14:23 2023-03-18 16:14:23 Outpatient SFA SFA [id number] Philip Alegre 2023-03-18 10:20:00 2023-03-18 10:20:00 Outpatient LEXY STAHL [id number] [facility] 2023-03-18 10:15:00 2023-03-18 10:15:00 Outpatient LEXY STAHL [id number] Lexy [facility] 2023-03-18 10:10:00 2023-03-18 10:10:00 Outpatient LEXY STAHL [id number] Lexy Oropeza 2023-03-18 10:05:00 2023-03-18 10:05:00 Outpatient LEXY STAHL [id number] Lexy Seybold 2023-03-18 10:00:00 2023-03-18 10:00:00 Outpatient LEXY STAHL [id number] [facility] 2023-03-18 00:00:00 2023-03-18 00:00:00 Outpatient DIANN SADLER LEXY STAHL [id number] [facility] 2023-03-17 16:30:00 2023-03-17 16:30:00 Outpatient INESSA MANPREET STAHL [id number] [facility] 2023-03-11 08:15:00 2023-03-11 08:15:00 Outpatient ILIANA GREEN LEXY STAHL [id number] [facility] 2023-03-10 15:21:41 2023-03-10 15:21:41 Outpatient SFA SFA [id number] Philip Alegre 2023-03-10 00:00:00 2023-03-10 00:00:00 Outpatient LEXY STAHL [id number] [facility] 2023-03-03 10:00:00 2023-03-03 10:00:00 Outpatient TREVOR CHAPMAN YANDELGEN LEXY STAHL [id number] [facility] 2023-03-02 10:45:00 2023-03-02 10:45:00 Outpatient MELISSA VILLALPANDO [id number] [facility] 2023-03-02 00:00:00 2023-03-02 00:00:00 Outpatient PRADEEP VEGA [id number] [facility] 2023-03-02 00:00:00 2023-03-02 00:00:00 Outpatient LEXY STAHL [id number] [facility] 2023-03-02 00:00:00 2023-03-02 00:00:00 Outpatient MD LEXY SILVEIRA [id number] Lexy [facility] 2023-03-01 13:28:37 2023-03-01 13:28:37 Outpatient SFA SFA 27 Philip Alegre 2023-03-01 00:00:00 2023-03-01 00:00:00 Outpatient MD LEXY SILVEIRA [id number] Lexy [facility] 2023-02-28 00:00:00 2023-02-28 00:00:00 Outpatient LEXY STAHL [id number] Lex[facility] 2023-02-24 10:00:00 2023-02-24 10:00:00 Outpatient DULCE LEE LEXY STAHL [id number] Lex[facility] 2023-02-24 00:00:00 2023-02-24 00:00:00 Outpatient LEXY STAHL [id number] [facility] 2023-02-22 15:21:24 2023-02-22 15:21:24 Outpatient SFA SFA 619 Philip Alegre 2023-02-15 09:30:00 2023-02-15 09:30:00 Outpatient KAREN LOPEZ [id number] [facility] 2023-02-03 15:20:00 2023-02-03 15:20:00 Outpatient MARITO GARSIA [id number] [facility] 2023-02-02 11:45:00 2023-02-02 11:45:00 Outpatient DIANN SADLER [id number] [facility] 2023-02-02 00:00:00 2023-02-02 00:00:00 Outpatient MD LEXY SILVEIRA [id number] [facility] 2023-02-02 00:00:00 2023-02-02 00:00:00 Outpatient DIANN SADLER [id number] [facility] 2023-02-02 00:00:00 2023-02-02 00:00:00 Outpatient DIANN SADLER [id number] [facility] 2023-02-01 14:40:00 2023-02-01 14:40:00 Outpatient DENIA DIAZ [id number] Lexy [facility] 2023-01-22 10:22:15 2023-01-22 10:22:15 Outpatient SFA SFA 519 Philip Alegre 2023-01-21 00:00:00 2023-01-21 00:00:00 Outpatient PREDIANN HARPER [id number] Lexy [facility] 2023-01-21 00:00:00 2023-01-21 00:00:00 Outpatient DIANN SADLER [id number] Lexy [facility] 2023-01-20 00:00:00 2023-01-20 00:00:00 Outpatient [facility]ADLER [id number] [facility] 2023-01-19 15:55:00 2023-01-19 15:55:00 Outpatient TJ STAHL [id number] [facility] 2023-01-19 15:00:00 2023-01-19 15:00:00 Outpatient DIANN SADLER [id number] [facility] 2022-12-30 11:51:08 2022-12-30 11:51:08 Outpatient SFA SFA [id number] Philip Alegre 2022-12-21 11:35:05 2022-12-21 11:35:05 Outpatient SFA SFA 0418 Philip Lasha Codey 2022-11-29 10:35:36 2022-11-29 10:35:36 Outpatient SFA SFA [id number] Philip Alegre 2022-11-17 16:24:03 2022-11-17 16:24:03 Outpatient SFA SFA 0315 Philip F Codey 2022-11-03 13:33:54 2022-11-03 13:33:54 Outpatient SFA SFA 030 Philip Lasha Codey 2022-11-01 11:06:48 2022-11-01 11:06:48 Outpatient SFA SFA 0227 Philip F Codey 2022-10-20 09:10:03 2022-10-20 09:10:03 Outpatient SFA SFA 0215 Philip F Codey 2022-10-19 16:00:00 2022-10-19 16:00:00 Outpatient ANTONIO ALEMAN [id number] [facility] 2022-10-15 08:30:00 2022-10-15 08:30:00 Outpatient ANTONIO ALEMAN [id number] [facility]y [facility] 2022-08-02 09:56:02 2022-08-02 09:56:02 Outpatient SFA SFA [id number] Philip Alegre 2022-07-19 10:54:12 2022-07-19 10:54:12 Outpatient SFA SFA [id number] Philip Alegre 2022-07-12 13:01:10 2022-07-12 13:01:10 Outpatient SFA SFA 1107 Philip Alegre 2022-07-06 14:38:17 2022-07-06 14:38:17 Outpatient SFA SFA 1101 Philip Alegre 2022-07-06 00:00:00 2022-07-06 00:00:00 Outpatient Visit [id number] 2022-06-29 11:06:43 2022-06-29 11:06:[address] [facility] 1025 Philip Alegre 2022-06-29 00:00:00 2022-06-29 00:00:00 Outpatient Visit [id number] 2022-06-23 10:34:08 2022-06-23 10:34:08 Outpatient SFA SFA 1019 Philip Alegre 2022-06-23 00:00:00 2022-06-23 00:00:00 Outpatient Visit [id number] 0035-09-29 11:37:54 2022-06-03 11:37:54 Outpatient SFA SFA 29 Philip Alegre 2022-05-27 00:00:00 2022-05-27 00:00:00 Outpatient Visit [id number] 00:00:00 2021-05-18 00:00:00 Patient Secure Msg Doctor Unassigned, [facility] [id number] [facility] 2021-05-17 12:20:00 2021-05-17 13:32:00 Emergency Dwayne [facility] [id number] [facility] 2021-05-17 11:46:00 2021-05-17 11:46:00 Emergency X [facility] ERT [id number] [facility] Results Test Description Test Time Test Comments Results Result Co mments Source PSA, [id number] 04:57:49* Test Item Value Reference Range Interpretation Comme nts PSA, TOTAL (test code = 2606) 1.93 NG/ML See_Comment NOTE: Methodolog y is Corazon Nakul Electrochemiluminescence Immunoassay traceable to WHO reference standard 96/760. [Automated message] The system which generated this result transmitted reference range: <=4.00. The reference range was not used to interpret this result as normal/abnormal. CBC W/AUTO DIFF WITH [id number] 03:27:34* Test Item Value Reference Range Interpretation Comme nts WBC (test code = 1001) 8.9 K/UL 3.5-11.0 RBC (test code = 1002) 4.96 M/UL 4.50-6.10 HEMOGLOBIN (test code = 1003) 15.7 G/DL 13.5-17.0 HEMATOCRIT (test code = 1004) 49.0 % 40.0-51.0 MCV (test code = 1005) 98.8 fL 80.0-99.0 MCH (test code = 1006) 31.7 PG 25.0-33.0 MCHC (test code = 1007) 32.0 G/DL 31.0-36.0 RDW (test code = 1038) 14.9 % 11.5-15.0 NEUTROPHILS (test code = 1008) 57.7 % LYMPHOCYTES (test code = 1010) 29.2 % MONOCYTES (test code = 1011) 6.5 % EOSINOPHILS (test code = 1012) 5.4 % BASOPHILS (test code = 1013) 0.7 % IMMATURE GRANULOCYTES (test code = 1036) 0.5 % NUCLEATED RBCS (test code = 1065) 0.0 /100 WBC'S See_Comment [Automated [employer] ge] The system which generated this result transmitted reference range: 0.0. The reference range was not used to interpret this result as normal/abnormal. PLATELET COUNT (test code = 1015) 231 K/UL 130-400 ABSOLUTE NEUTROPHILS (test code = 1066) 5.13 K/UL 1.50-7.50 ABSOLUTE LYMPHOCYTES (test code = 1067) 2.59 K/UL 1.00-4.00 ABSOLUTE MONOCYTES (test code = 1068) 0.58 K/UL 0.20-1.00 ABSOLUTE EOSINOPHILS (test code = 1040) 0.48 K/UL 0.00-0.50 ABSOLUTE BASOPHILS (test code = 1069) 0.06 K/UL 0.00-0.20 ABS IMMATURE GRANULOCYTES (test code = 1020) 0.04 K/UL 0.00-0.10 ABS NUCLEATED RBCS (test code = 56877) 0.00 K/UL 0.00-0.11 LIPID [id number] 03:20:10* Test Item Value Reference Range Interpretation Comme nts CHOLESTEROL (test code = 2210) 188 MG/DL <200 TRIGLYCERIDES (test code = 2232) 134 MG/DL <150 HDL CHOLESTEROL (test code = 2220) 51 MG/DL >39 CALC LDL CHOL (test code = 2237) 112 MG/DL <100 H NOTE: CALCULATED LDL IS BASED ON ARAVIND-CLAIRE METHOD WHICHINCLUDES ADJUSTABLE TRIGLYCERIDE:VLDL CHOLESTEROL RATIO.THIS FACTOR VARIES BY MEASURED TRIGLYCERIDE AND NON-HDLCHOLESTEROL CONCENTRATIONS WITH INCREASED CALCULATED LDL SEENIN HIGHER TRIGLYCERIDE OR LOWER NON-HDL SPECIMENS. FOR MOREINFORMATION, SEE CLIENT ANNOUNCEMENT AT [email or web address] RATIO LDL/HDL (test code = 2238) 2.20 RATIO <3.55 [id number] 06:44:59* Test Item Value Reference Range Interpretation Comme nts TESTOSTERONE (test code = 2830) 181 NG/DL 300-890 L UNLESS OTHERWISE INDICATED, ALL TESTING PERFORMED [facility] [employer] [address] [place] [id number] BLUE LINE TRIMMER: DIAMOND ODELL M.D. CLIA NUMBER [id number] [facility] [place]. [id number] 00:00:00* Test Item Value Reference Range Interpretation Comme nts TESTOSTERONE (test code = 2830) 181 NG/DL [id number] 00:00:00* Test Item Value Reference Range Interpretation Comme nts TESTOSTERONE (test code = 2830) 181 NG/DL TSH, THIRD [id number] 06:46:28* Test Item Value Reference Range Interpretation Comme nts TSH, THIRD GENERATION (test code = 2821) 2.570 UIU/ML 0.400-4.100 SEDIMENTATION [id number] 06:44:10* Test Item Value Reference Range Interpretation Comme nts SEDIMENTATION RATE (test cod e = 1017) 16 MM/HOUR 0-15 H [id number] 05:48:38* Test Item Value Reference Range Interpretation Comme nts TESTOSTERONE (test code = 2830) 173 NG/DL 300-890 L C-REACTIVE [id number] 05:06:35* Test Item Value Reference Range Interpretation Comme nts C-REACTIVE PROTEIN (test cod e = 3513) 0.7 MG/DL <0.5 H [id number] 04:49:21* Test Item Value Reference Range Interpretation Comme nts CREATININE (test code = 2214) 1.07 MG/DL 0.80-1.40 eGFR (2020 CKD-EPI) (test code = 83349) 81 ML/MIN/1.73 >60 UNLESS OTHER PERSON INDICATED, ALL TESTING PERFORMED [facility] [employer] [address] [place] [id number] BLUE LINE TRIMMER: DIAMOND ODELL M.D. CLIA NUMBER [id number] [facility] [place]. [id number] CBC W/AUTO DIFF WITH [id number] 04:05:47* Test Item Value Reference Range Interpretation Comme nts WBC (test code = 1001) 8.9 K/UL 3.5-11.0 RBC (test code = 1002) 4.60 M/UL 4.50-6.10 HEMOGLOBIN (test code = 1003) 15.1 G/DL 13.5-17.0 HEMATOCRIT (test code = 1004) 43.3 % 40.0-51.0 MCV (test code = 1005) 94.1 fL 80.0-99.0 MCH (test code = 1006) 32.8 PG 25.0-33.0 MCHC (test code = 1007) 34.9 G/DL 31.0-36.0 RDW (test code = 1038) 12.4 % 11.5-15.0 NEUTROPHILS (test code = 1008) 62.0 % LYMPHOCYTES (test code = 1010) 27.1 % MONOCYTES (test code = 1011) 6.7 % EOSINOPHILS (test code = 1012) 3.0 % BASOPHILS (test code = 1013) 0.7 % IMMATURE GRANULOCYTES (test code = 1036) 0.5 % NUCLEATED RBCS (test code = 1065) 0.0 /100 WBC'S See_Comment [Automated messa ge] The system which generated this result transmitted reference range: 0.0. The reference range was not used to interpret this result as normal/abnormal. PLATELET COUNT (test code = 1015) 276 K/UL 130-400 ABSOLUTE NEUTROPHILS (test code = 1066) 5.51 K/UL 1.50-7.50 ABSOLUTE LYMPHOCYTES (test code = 1067) 2.40 K/UL 1.00-4.00 ABSOLUTE MONOCYTES (test code = 1068) 0.59 K/UL 0.20-1.00 ABSOLUTE EOSINOPHILS (test code = 1040) 0.27 K/UL 0.00-0.50 ABSOLUTE BASOPHILS (test code = 1069) 0.06 K/UL 0.00-0.20 ABS IMMATURE GRANULOCYTES (test code = 1020) 0.04 K/UL 0.00-0.10 ABS NUCLEATED RBCS (test code = 33319) 0.00 K/UL 0.00-0.11 CBC W/AUTO [id number] 00:00:00* Test Item Value Reference Range Interpretation Comme nts WBC (test code = 1001) 8.9 K/UL [...] = 1013) 0.7 % IMMATURE GRANULOCYTES (test code = 1036) 0.5 % NUCLEATED RBCS (test code = 1065) 0.0 /100WBC'S PLATELET COUNT (test code = 1015) 276 K/UL ABSOLUTE NEUTROPHILS (test c ode = 1066) 5.51 K/UL ABSOLUTE LYMPHOCYTES (test c ode = 1067) 2.40 K/UL ABSOLUTE MONOCYTES (test cod e = 1068) 0.59 K/UL ABSOLUTE EOSINOPHILS (test c ode = 1040) 0.27 K/UL ABSOLUTE BASOPHILS (test cod e = 1069) 0.06 K/UL ABS IMMATURE GRANULOCYTES (t est code = 1020) 0.04 K/UL ABS NUCLEATED RBCS (test cod e = 49241) 0.00 K/UL CBC W/AUTO [id number] 00:00:00* Test Item Value Reference Range Interpretation Comme nts WBC (test code = 1001) 8.9 K/UL [...] = 1013) 0.7 % IMMATURE GRANULOCYTES (test code = 1036) 0.5 % NUCLEATED RBCS (test code = 1065) 0.0 /100WBC'S PLATELET COUNT (test code = 1015) 276 K/UL ABSOLUTE NEUTROPHILS (test c ode = 1066) 5.51 K/UL ABSOLUTE LYMPHOCYTES (test c ode = 1067) 2.40 K/UL ABSOLUTE MONOCYTES (test cod e = 1068) 0.59 K/UL ABSOLUTE EOSINOPHILS (test c ode = 1040) 0.27 K/UL ABSOLUTE BASOPHILS (test cod e = 1069) 0.06 K/UL ABS IMMATURE GRANULOCYTES (t est code = 1020) 0.04 K/UL ABS NUCLEATED RBCS (test cod e = 35792) 0.00 K/UL CBC W/AUTO [id number] 00:00:00* Test Item Value Reference Range Interpretation Comme nts WBC (test code = 1001) 8.9 K/UL [...] = 1013) 0.7 % IMMATURE GRANULOCYTES (test code = 1036) 0.5 % NUCLEATED RBCS (test code = 1065) 0.0 /100WBC'S PLATELET COUNT (test code = 1015) 276 K/UL ABSOLUTE NEUTROPHILS (test c ode = 1066) 5.51 K/UL ABSOLUTE LYMPHOCYTES (test c ode = 1067) 2.40 K/UL ABSOLUTE MONOCYTES (test cod e = 1068) 0.59 K/UL ABSOLUTE EOSINOPHILS (test c ode = 1040) 0.27 K/UL ABSOLUTE BASOPHILS (test cod e = 1069) 0.06 K/UL ABS IMMATURE GRANULOCYTES (t est code = 1020) 0.04 K/UL ABS NUCLEATED RBCS (test cod e = 73605) 0.00 K/UL [id number] 00:00:00* Test Item Value Reference Range Interpretation Comme nts TESTOSTERONE (test code = 2830) 173 NG/DL [id number] 00:00:00* Test Item Value Reference Range Interpretation Comme nts TESTOSTERONE (test code = 2830) 173 NG/DL TSH, THIRD [id number] 00:00:00* Test Item Value Reference Range Interpretation Comme nts TSH, THIRD GENERATION (test code = 2821) 2.570 UIU/ML TSH, THIRD [id number] 00:00:00* Test Item Value Reference Range Interpretation Comme nts TSH, THIRD GENERATION (test code = 2821) 2.570 UIU/ML TSH, THIRD [id number] 00:00:00* Test Item Value Reference Range Interpretation Comme nts TSH, THIRD GENERATION (test code = 2821) 2.570 UIU/ML SEDIMENTATION [id number] 00:00:00* Test Item Value Reference Range Interpretation Comme nts SEDIMENTATION RATE (test cod e = 1017) 16 MM/HOUR SEDIMENTATION [id number] 00:00:00* Test Item Value Reference Range Interpretation Comme nts SEDIMENTATION RATE (test cod e = 1017) 16 MM/HOUR C-REACTIVE [id number] 00:00:00* Test Item Value Reference Range Interpretation Comme nts C-REACTIVE PROTEIN (test cod e = 3513) 0.7 MG/DL C-REACTIVE [id number] 00:00:00* Test Item Value Reference Range Interpretation Comme nts C-REACTIVE PROTEIN (test cod e = 3513) 0.7 MG/DL [id number] 00:00:00* Test Item Value Reference Range Interpretation Comme nts CREATININE (test code = 2214) 1.07 MG/DL eGFR (2020 CKD-EPI) (test co de = 95501) 81 ML/MIN/1.73 [id number] 00:00:00* Test Item Value Reference Range Interpretation Comme nts CREATININE (test code = 2214) 1.07 MG/DL eGFR (2020 CKD-EPI) (test co de = 70470) 81 ML/MIN/1.73 CBC W/AUTO [id number] 00:00:00* Test Item Value Reference Range Interpretation Comme nts WBC (test code = 1001) 8.9 K/UL [...] = 1013) 0.7 % IMMATURE GRANULOCYTES (test code = 1036) 0.5 % NUCLEATED RBCS (test code = 1065) 0.0 /100WBC'S PLATELET COUNT (test code = 1015) 276 K/UL ABSOLUTE NEUTROPHILS (test c ode = 1066) 5.51 K/UL ABSOLUTE LYMPHOCYTES (test c ode = 1067) 2.40 K/UL ABSOLUTE MONOCYTES (test cod e = 1068) 0.59 K/UL ABSOLUTE EOSINOPHILS (test c ode = 1040) 0.27 K/UL ABSOLUTE BASOPHILS (test cod e = 1069) 0.06 K/UL ABS IMMATURE GRANULOCYTES (t est code = 1020) 0.04 K/UL ABS NUCLEATED RBCS (test cod e = 76621) 0.00 K/UL CBC W/AUTO [id number] 00:00:00* Test Item Value Reference Range Interpretation Comme nts WBC (test code = 1001) 8.9 K/UL [...] = 1013) 0.7 % IMMATURE GRANULOCYTES (test code = 1036) 0.5 % NUCLEATED RBCS (test code = 1065) 0.0 /100WBC'S PLATELET COUNT (test code = 1015) 276 K/UL ABSOLUTE NEUTROPHILS (test c ode = 1066) 5.51 K/UL ABSOLUTE LYMPHOCYTES (test c ode = 1067) 2.40 K/UL ABSOLUTE MONOCYTES (test cod e = 1068) 0.59 K/UL ABSOLUTE EOSINOPHILS (test c ode = 1040) 0.27 K/UL ABSOLUTE BASOPHILS (test cod e = 1069) 0.06 K/UL ABS IMMATURE GRANULOCYTES (t est code = 1020) 0.04 K/UL ABS NUCLEATED RBCS (test cod e = 01460) 0.00 K/UL CBC W/AUTO [id number] 00:00:00* Test Item Value Reference Range Interpretation Comme nts WBC (test code = 1001) 8.9 K/UL [...] = 1013) 0.7 % IMMATURE GRANULOCYTES (test code = 1036) 0.5 % NUCLEATED RBCS (test code = 1065) 0.0 /100WBC'S PLATELET COUNT (test code = 1015) 276 K/UL ABSOLUTE NEUTROPHILS (test c ode = 1066) 5.51 K/UL ABSOLUTE LYMPHOCYTES (test c ode = 1067) 2.40 K/UL ABSOLUTE MONOCYTES (test cod e = 1068) 0.59 K/UL ABSOLUTE EOSINOPHILS (test c ode = 1040) 0.27 K/UL ABSOLUTE BASOPHILS (test cod e = 1069) 0.06 K/UL ABS IMMATURE GRANULOCYTES (t est code = 1020) 0.04 K/UL ABS NUCLEATED RBCS (test cod e = 45082) 0.00 K/UL [id number] 00:00:00* Test Item Value Reference Range Interpretation Comme nts TESTOSTERONE (test code = 2830) 173 NG/DL [id number] 00:00:00* Test Item Value Reference Range Interpretation Comme nts TESTOSTERONE (test code = 2830) 173 NG/DL TSH, THIRD [id number] 00:00:00* Test Item Value Reference Range Interpretation Comme nts TSH, THIRD GENERATION (test code = 2821) 2.570 UIU/ML TSH, THIRD [id number] 00:00:00* Test Item Value Reference Range Interpretation Comme nts TSH, THIRD GENERATION (test code = 2821) 2.570 UIU/ML TSH, THIRD [id number] 00:00:00* Test Item Value Reference Range Interpretation Comme nts TSH, THIRD GENERATION (test code = 2821) 2.570 UIU/ML SEDIMENTATION [id number] 00:00:00* Test Item Value Reference Range Interpretation Comme nts SEDIMENTATION RATE (test cod e = 1017) 16 MM/HOUR SEDIMENTATION [id number] 00:00:00* Test Item Value Reference Range Interpretation Comme nts SEDIMENTATION RATE (test cod e = 1017) 16 MM/HOUR C-REACTIVE [id number] 00:00:00* Test Item Value Reference Range Interpretation Comme nts C-REACTIVE PROTEIN (test cod e = 3513) 0.7 MG/DL C-REACTIVE [id number] 00:00:00* Test Item Value Reference Range Interpretation Comme nts C-REACTIVE PROTEIN (test cod e = 3513) 0.7 MG/DL [id number] 00:00:00* Test Item Value Reference Range Interpretation Comme nts CREATININE (test code = 2214) 1.07 MG/DL eGFR (2020 CKD-EPI) (test co de = 55036) 81 ML/MIN/1.73 [id number] 00:00:00* Test Item Value Reference Range Interpretation Comme nts CREATININE (test code = 2214) 1.07 MG/DL eGFR (2020 CKD-EPI) (test co de = 90032) 81 ML/MIN/1.73 CBC W/AUTO [id number] 00:00:00* Test Item Value Reference Range Interpretation Comme nts WBC (test code = 1001) 8.9 K/UL [...] = 1013) 0.7 % IMMATURE GRANULOCYTES (test code = 1036) 0.5 % NUCLEATED RBCS (test code = 1065) 0.0 /100WBC'S PLATELET COUNT (test code = 1015) 276 K/UL ABSOLUTE NEUTROPHILS (test c ode = 1066) 5.51 K/UL ABSOLUTE LYMPHOCYTES (test c ode = 1067) 2.40 K/UL ABSOLUTE MONOCYTES (test cod e = 1068) 0.59 K/UL ABSOLUTE EOSINOPHILS (test c ode = 1040) 0.27 K/UL ABSOLUTE BASOPHILS (test cod e = 1069) 0.06 K/UL ABS IMMATURE GRANULOCYTES (t est code = 1020) 0.04 K/UL ABS NUCLEATED RBCS (test cod e = 52538) 0.00 K/UL CBC W/AUTO [id number] 00:00:00* Test Item Value Reference Range Interpretation Comme nts WBC (test code = 1001) 8.9 K/UL [...] = 1013) 0.7 % IMMATURE GRANULOCYTES (test code = 1036) 0.5 % NUCLEATED RBCS (test code = 1065) 0.0 /100WBC'S PLATELET COUNT (test code = 1015) 276 K/UL ABSOLUTE NEUTROPHILS (test c ode = 1066) 5.51 K/UL ABSOLUTE LYMPHOCYTES (test c ode = 1067) 2.40 K/UL ABSOLUTE MONOCYTES (test cod e = 1068) 0.59 K/UL ABSOLUTE EOSINOPHILS (test c ode = 1040) 0.27 K/UL ABSOLUTE BASOPHILS (test cod e = 1069) 0.06 K/UL ABS IMMATURE GRANULOCYTES (t est code = 1020) 0.04 K/UL ABS NUCLEATED RBCS (test cod e = 89237) 0.00 K/UL CBC W/AUTO [id number] 00:00:00* Test Item Value Reference Range Interpretation Comme nts WBC (test code = 1001) 8.9 K/UL [...] = 1013) 0.7 % IMMATURE GRANULOCYTES (test code = 1036) 0.5 % NUCLEATED RBCS (test code = 1065) 0.0 /100WBC'S PLATELET COUNT (test code = 1015) 276 K/UL ABSOLUTE NEUTROPHILS (test c ode = 1066) 5.51 K/UL ABSOLUTE LYMPHOCYTES (test c ode = 1067) 2.40 K/UL ABSOLUTE MONOCYTES (test cod e = 1068) 0.59 K/UL ABSOLUTE EOSINOPHILS (test c ode = 1040) 0.27 K/UL ABSOLUTE BASOPHILS (test cod e = 1069) 0.06 K/UL ABS IMMATURE GRANULOCYTES (t est code = 1020) 0.04 K/UL ABS NUCLEATED RBCS (test cod e = 93389) 0.00 K/UL [id number] 00:00:00* Test Item Value Reference Range Interpretation Comme nts TESTOSTERONE (test code = 2830) 173 NG/DL [id number] 00:00:00* Test Item Value Reference Range Interpretation Comme nts TESTOSTERONE (test code = 2830) 173 NG/DL TSH, THIRD [id number] 00:00:00* Test Item Value Reference Range Interpretation Comme nts TSH, THIRD GENERATION (test code = 2821) 2.570 UIU/ML TSH, THIRD [id number] 00:00:00* Test Item Value Reference Range Interpretation Comme nts TSH, THIRD GENERATION (test code = 2821) 2.570 UIU/ML TSH, THIRD [id number] 00:00:00* Test Item Value Reference Range Interpretation Comme nts TSH, THIRD GENERATION (test code = 2821) 2.570 UIU/ML SEDIMENTATION [id number] 00:00:00* Test Item Value Reference Range Interpretation Comme nts SEDIMENTATION RATE (test cod e = 1017) 16 MM/HOUR SEDIMENTATION [id number] 00:00:00* Test Item Value Reference Range Interpretation Comme nts SEDIMENTATION RATE (test cod e = 1017) 16 MM/HOUR C-REACTIVE [id number] 00:00:00* Test Item Value Reference Range Interpretation Comme nts C-REACTIVE PROTEIN (test cod e = 3513) 0.7 MG/DL C-REACTIVE [id number] 00:00:00* Test Item Value Reference Range Interpretation Comme nts C-REACTIVE PROTEIN (test cod e = 3513) 0.7 MG/DL [id number] 00:00:00* Test Item Value Reference Range Interpretation Comme nts CREATININE (test code = 2214) 1.07 MG/DL eGFR (2020 CKD-EPI) (test co de = 12436) 81 ML/MIN/1.73 [id number] 00:00:00* Test Item Value Reference Range Interpretation Comme nts CREATININE (test code = 2214) 1.07 MG/DL eGFR (2020 CKD-EPI) (test co de = 91120) 81 ML/MIN/1.73 HEMOGLOBIN [id number] 10:19:29* Test Item Value Reference Range Interpretation Comme nts HEMOGLOBIN A1c (test code = 45671) 5.9 % 4.2-5.6 H COMPREHENSIVE METABOLIC [id number] 04:39:34* Test Item Value Reference Range Interpretation Comme nts GLUCOSE (test code = 2217) 126 MG/DL 70-99 H BUN (test code = 2207) 20 MG/DL 6-20 CREATININE (test code = 221) 1.12 MG/DL 0.80-1.40 eGFR (2020 CKD-EPI) (test code = 30941) 77 ML/MIN/1.73 >60 CALC BUN/CREAT (test code = 2235) 18 RATIO 6-28 SODIUM (test code = 223) 141 MEQ/L 133-146 POTASSIUM (test code = 2228) 3.8 MEQ/L 3.5-5.4 CHLORIDE (test code = 2215) 102 MEQ/L 95-107 CARBON DIOXIDE (test code = 2206) 27 MEQ/L 19-31 CALCIUM (test code = 2209) 10.0 MG/DL 8.5-10.5 PROTEIN, TOTAL (test code = 2228) 7.1 G/DL 6.1-8.3 ALBUMIN (test code = 2201) 4.2 G/DL 3.5-5.2 CALC GLOBULIN (test code = 2240) 2.9 G/DL 1.9-3.7 CALC A/G RATIO (test code = 223) 1.4 RATIO 1.0-2.6 BILIRUBIN, TOTAL (test code = 2207) 0.4 MG/DL See_Comment [Automated me ssage] The system which generated this result transmitted reference range: <=1.2. The reference range was not used to interpret this result as normal/abnormal. ALKALINE PHOSPHATASE (test code = 2203) 101 U/L 40-123 AST (test code = 2218) 24 U/L 9-50 ALT (test code = 2219) 42 U/L 5-50 LIPID [id number] 04:39:34* Test Item Value Reference Range Interpretation Comme nts CHOLESTEROL (test code = 2210) 246 MG/DL <200 H TRIGLYCERIDES (test code = 2232) 209 MG/DL <150 H HDL CHOLESTEROL (test code = 2220) 48 MG/DL >39 CALC LDL CHOL (test code = 2237) 161 MG/DL <100 H NOTE: CALCULATED LDL IS BASED ON ARAVIND-CLAIRE METHOD WHICHINCLUDES ADJUSTABLE TRIGLYCERIDE:VLDL CHOLESTEROL RATIO.THIS FACTOR VARIES BY MEASURED TRIGLYCERIDE AND NON-HDLCHOLESTEROL CONCENTRATIONS WITH INCREASED CALCULATED LDL SEENIN HIGHER TRIGLYCERIDE OR LOWER NON-HDL SPECIMENS. FOR MOREINFORMATION, SEE CLIENT ANNOUNCEMENT AT [email or web address] RISK RATIO LDL/HDL (test code = 2238) 3.35 RATIO <3.55 UNLESS OTHERW ISE INDICATED, ALL TESTING PERFORMED [facility] [address] [place] [address] BLUE LINE TRIMMER: DIAMOND ODELL M.D. CLIA NUMBER [id number] [facility] [place]. [id number] COMPREHENSIVE METABOLIC [id number] 00:00:00* Test Item Value Reference Range Interpretation Comme nts GLUCOSE (test code = 2217) 126 MG/DL BUN (test code = 2208) 20 MG/DL CREATININE (test code = 2214) 1.12 MG/DL eGFR (2020 CKD-EPI) (test co de = 69100) 77 ML/MIN/1.73 CALC BUN/CREAT (test code = 2235) 18 RATIO SODIUM (test code = 2231) 141 MEQ/L POTASSIUM (test code = 2228) 3.8 MEQ/L CHLORIDE (test code = 2215) 102 MEQ/L CARBON DIOXIDE (test code = 2206) 27 MEQ/L CALCIUM (test code = 2209) 10.0 MG/DL PROTEIN, TOTAL (test code = 2229) 7.1 G/DL ALBUMIN (test code = 2201) 4.2 G/DL CALC GLOBULIN (test code = 2240) 2.9 G/DL CALC A/G RATIO (test code = 2234) 1.4 RATIO BILIRUBIN, TOTAL (test code = 2207) 0.4 MG/DL ALKALINE PHOSPHATASE (test code = 2204) 101 U/L AST (test code = 2218) 24 U/L ALT (test code = 2219) 42 U/L COMPREHENSIVE METABOLIC [id number] 00:00:00* Test Item Value Reference Range Interpretation Comme nts GLUCOSE (test code = 2217) 126 MG/DL BUN (test code = 2208) 20 MG/DL CREATININE (test code = 2214) 1.12 MG/DL eGFR (2020 CKD-EPI) (test co de = 99364) 77 ML/MIN/1.73 CALC BUN/CREAT (test code = 2235) 18 RATIO SODIUM (test code = 223) 141 MEQ/L POTASSIUM (test code = 2228) 3.8 MEQ/L CHLORIDE (test code = 2215) 102 MEQ/L CARBON DIOXIDE (test code = 2206) 27 MEQ/L CALCIUM (test code = 2209) 10.0 MG/DL PROTEIN, TOTAL (test code = 2229) 7.1 G/DL ALBUMIN (test code = 2201) 4.2 G/DL CALC GLOBULIN (test code = 2240) 2.9 G/DL CALC A/G RATIO (test code = 2234) 1.4 RATIO BILIRUBIN, TOTAL (test code = 2207) 0.4 MG/DL ALKALINE PHOSPHATASE (test code = 2204) 101 U/L AST (test code = 2218) 24 U/L ALT (test code = 2219) 42 U/L HEMOGLOBIN [id number] 00:00:00* Test Item Value Reference Range Interpretation Comme nts HEMOGLOBIN A1c (test code = 05579) 5.9 % HEMOGLOBIN [id number] 00:00:00* Test Item Value Reference Range Interpretation Comme nts HEMOGLOBIN A1c (test code = 47968) 5.9 % HEMOGLOBIN [id number] 00:00:00* Test Item Value Reference Range Interpretation Comme nts HEMOGLOBIN A1c (test code = 37305) 5.9 % LIPID [id number] 00:00:00* Test Item Value Reference Range Interpretation Comme nts CHOLESTEROL (test code = 2210) 246 MG/DL TRIGLYCERIDES (test code = 2232) 209 MG/DL HDL CHOLESTEROL (test code = 2220) 48 MG/DL CALC LDL CHOL (test code = 2237) 161 MG/DL RISK RATIO LDL/HDL (test cod e = 2238) 3.35 RATIO LIPID [id number] 00:00:00* Test Item Value Reference Range Interpretation Comme nts CHOLESTEROL (test code = 2210) 246 MG/DL TRIGLYCERIDES (test code = 2232) 209 MG/DL HDL CHOLESTEROL (test code = 2220) 48 MG/DL CALC LDL CHOL (test code = 2237) 161 MG/DL RISK RATIO LDL/HDL (test cod e = 2238) 3.35 RATIO COMPREHENSIVE METABOLIC [id number] 00:00:00* Test Item Value Reference Range Interpretation Comme nts GLUCOSE (test code = 2217) 126 MG/DL BUN (test code = 2208) 20 MG/DL CREATININE (test code = 2214) 1.12 MG/DL eGFR (2020 CKD-EPI) (test co de = 35329) 77 ML/MIN/1.73 CALC BUN/CREAT (test code = 2235) 18 RATIO SODIUM (test code = 2231) 141 MEQ/L POTASSIUM (test code = 2228) 3.8 MEQ/L CHLORIDE (test code = 2215) 102 MEQ/L CARBON DIOXIDE (test code = 2206) 27 MEQ/L CALCIUM (test code = 2209) 10.0 MG/DL PROTEIN, TOTAL (test code = 2229) 7.1 G/DL ALBUMIN (test code = 2201) 4.2 G/DL CALC GLOBULIN (test code = 2240) 2.9 G/DL CALC A/G RATIO (test code = 2234) 1.4 RATIO BILIRUBIN, TOTAL (test code = 2207) 0.4 MG/DL ALKALINE PHOSPHATASE (test code = 2204) 101 U/L AST (test code = 2218) 24 U/L ALT (test code = 2219) 42 U/L COMPREHENSIVE METABOLIC [id number] 00:00:00* Test Item Value Reference Range Interpretation Comme nts GLUCOSE (test code = 2217) 126 MG/DL BUN (test code = 2208) 20 MG/DL CREATININE (test code = 2214) 1.12 MG/DL eGFR (2020 CKD-EPI) (test co de = 90071) 77 ML/MIN/1.73 CALC BUN/CREAT (test code = 2235) 18 RATIO SODIUM (test code = 2231) 141 MEQ/L POTASSIUM (test code = 2228) 3.8 MEQ/L CHLORIDE (test code = 2215) 102 MEQ/L CARBON DIOXIDE (test code = 2206) 27 MEQ/L CALCIUM (test code = 2209) 10.0 MG/DL PROTEIN, TOTAL (test code = 2229) 7.1 G/DL ALBUMIN (test code = 2201) 4.2 G/DL CALC GLOBULIN (test code = 2240) 2.9 G/DL CALC A/G RATIO (test code = 2234) 1.4 RATIO BILIRUBIN, TOTAL (test code = 2207) 0.4 MG/DL ALKALINE PHOSPHATASE (test code = 2204) 101 U/L AST (test code = 2218) 24 U/L ALT (test code = 2219) 42 U/L HEMOGLOBIN [id number] 00:00:00* Test Item Value Reference Range Interpretation Comme nts HEMOGLOBIN A1c (test code = 62721) 5.9 % HEMOGLOBIN [id number] 00:00:00* Test Item Value Reference Range Interpretation Comme nts HEMOGLOBIN A1c (test code = 19303) 5.9 % HEMOGLOBIN [id number] 00:00:00* Test Item Value Reference Range Interpretation Comme nts HEMOGLOBIN A1c (test code = 77149) 5.9 % LIPID [id number] 00:00:00* Test Item Value Reference Range Interpretation Comme nts CHOLESTEROL (test code = 2210) 246 MG/DL TRIGLYCERIDES (test code = 2232) 209 MG/DL HDL CHOLESTEROL (test code = 2220) 48 MG/DL CALC LDL CHOL (test code = 2237) 161 MG/DL RISK RATIO LDL/HDL (test cod e = 2238) 3.35 RATIO LIPID [id number] 00:00:00* Test Item Value Reference Range Interpretation Comme nts CHOLESTEROL (test code = 2210) 246 MG/DL TRIGLYCERIDES (test code = 2232) 209 MG/DL HDL CHOLESTEROL (test code = 2220) 48 MG/DL CALC LDL CHOL (test code = 2237) 161 MG/DL RISK RATIO LDL/HDL (test cod e = 2238) 3.35 RATIO COMPREHENSIVE METABOLIC [id number] 00:00:00* Test Item Value Reference Range Interpretation Comme nts GLUCOSE (test code = 2217) 126 MG/DL BUN (test code = 2208) 20 MG/DL CREATININE (test code = 2214) 1.12 MG/DL eGFR (2020 CKD-EPI) (test co de = 03494) 77 ML/MIN/1.73 CALC BUN/CREAT (test code = 2235) 18 RATIO SODIUM (test code = 2231) 141 MEQ/L POTASSIUM (test code = 2228) 3.8 MEQ/L CHLORIDE (test code = 2215) 102 MEQ/L CARBON DIOXIDE (test code = 2206) 27 MEQ/L CALCIUM (test code = 2209) 10.0 MG/DL PROTEIN, TOTAL (test code = 2229) 7.1 G/DL ALBUMIN (test code = 2201) 4.2 G/DL CALC GLOBULIN (test code = 2240) 2.9 G/DL CALC A/G RATIO (test code = 2234) 1.4 RATIO BILIRUBIN, TOTAL (test code = 2207) 0.4 MG/DL ALKALINE PHOSPHATASE (test code = 2204) 101 U/L AST (test code = 2218) 24 U/L ALT (test code = 2219) 42 U/L COMPREHENSIVE METABOLIC [id number] 00:00:00* Test Item Value Reference Range Interpretation Comme nts GLUCOSE (test code = 2217) 126 MG/DL BUN (test code = 2208) 20 MG/DL CREATININE (test code = 2214) 1.12 MG/DL eGFR (2020 CKD-EPI) (test co de = 33571) 77 ML/MIN/1.73 CALC BUN/CREAT (test code = 2235) 18 RATIO SODIUM (test code = 2231) 141 MEQ/L POTASSIUM (test code = 2228) 3.8 MEQ/L CHLORIDE (test code = 2215) 102 MEQ/L CARBON DIOXIDE (test code = 2206) 27 MEQ/L CALCIUM (test code = 2209) 10.0 MG/DL PROTEIN, TOTAL (test code = 2229) 7.1 G/DL ALBUMIN (test code = 2201) 4.2 G/DL CALC GLOBULIN (test code = 2240) 2.9 G/DL CALC A/G RATIO (test code = 2234) 1.4 RATIO BILIRUBIN, TOTAL (test code = 2207) 0.4 MG/DL ALKALINE PHOSPHATASE (test code = 2204) 101 U/L AST (test code = 2218) 24 U/L ALT (test code = 2219) 42 U/L HEMOGLOBIN [id number] 00:00:00* Test Item Value Reference Range Interpretation Comme nts HEMOGLOBIN A1c (test code = 11963) 5.9 % HEMOGLOBIN [id number] 00:00:00* Test Item Value Reference Range Interpretation Comme nts HEMOGLOBIN A1c (test code = 62621) 5.9 % HEMOGLOBIN [id number] 00:00:00* Test Item Value Reference Range Interpretation Comme nts HEMOGLOBIN A1c (test code = 69106) 5.9 % LIPID [id number] 00:00:00* Test Item Value Reference Range Interpretation Comme nts CHOLESTEROL (test code = 2210) 246 MG/DL TRIGLYCERIDES (test code = 2232) 209 MG/DL HDL CHOLESTEROL (test code = 2220) 48 MG/DL CALC LDL CHOL (test code = 2237) 161 MG/DL RISK RATIO LDL/HDL (test cod e = 2238) 3.35 RATIO LIPID [id number] 00:00:00* Test Item Value Reference Range Interpretation Comme nts CHOLESTEROL (test code = 2210) 246 MG/DL TRIGLYCERIDES (test code = 2232) 209 MG/DL HDL CHOLESTEROL (test code = 2220) 48 MG/DL CALC LDL CHOL (test code = 2237) 161 MG/DL RISK RATIO LDL/HDL (test cod e = 2238) 3.35 RATIO HEMOGLOBIN [id number] 05:30:45* Test Item Value Reference Range Interpretation Comme nts HEMOGLOBIN A1c (test code = 38299) 6.2 % 4.2-5.6 H UNLESS OTHERWISE INDICATED, [facility] TEST[facility] [address] [place] [id number] BLUE LINE TRIMMER: DIAMOND ODELL M.D. CLIA NUMBER [id number] [place]. [id number] COMPREHENSIVE METABOLIC [id number] 04:18:35* Test Item Value Reference Range Interpretation Comme nts GLUCOSE (test code = 2217) 167 MG/DL 70-99 H BUN (test code = 2208) 21 MG/DL 6-20 H CREATININE (test code = 2214) 1.18 MG/DL 0.80-1.40 eGFR (2020 CKD-EPI) (test code = 16025) 72 ML/MIN/1.73 >60 CALC BUN/CREAT (test code = 2234) 18 RATIO 6-28 SODIUM (test code = 2230) 139 MEQ/L 133-146 POTASSIUM (test code = 2227) 4.3 MEQ/L 3.5-5.4 CHLORIDE (test code = 2214) 100 MEQ/L 95-107 CARBON DIOXIDE (test code = 2205) 29 MEQ/L 19-31 CALCIUM (test code = 2208) 9.7 MG/DL 8.5-10.5 PROTEIN, TOTAL (test code = 2228) 7.4 G/DL 6.1-8.3 ALBUMIN (test code = 2200) 4.1 G/DL 3.5-5.2 CALC GLOBULIN (test code = 2239) 3.3 G/DL 1.9-3.7 CALC A/G RATIO (test code = 2233) 1.2 RATIO 1.0-2.6 BILIRUBIN, TOTAL (test code = 2206) 0.5 MG/DL See_Comment [Automated me ssage] The system which generated this result transmitted reference range: <=1.2. The reference range was not used to interpret this result as normal/abnormal. ALKALINE PHOSPHATASE (test code = 2203) 124 U/L 40-123 H AST (test code = 2217) 17 U/L 9-50 ALT (test code = 2218) 32 U/L 5-50 LIPID [id number] 04:18:35* Test Item Value Reference Range Interpretation Comme nts CHOLESTEROL (test code = 221) 240 MG/DL <200 H TRIGLYCERIDES (test code = 2232) 160 MG/DL <150 H HDL CHOLESTEROL (test code = 2220) 53 MG/DL >39 CALC LDL CHOL (test code = 7) 157 MG/DL <100 H NOTE: CALCULATED LDL IS BASED ON ARAVIND-CLAIRE METHOD WHICHINCLUDES ADJUSTABLE TRIGLYCERIDE:VLDL CHOLESTEROL RATIO.THIS FACTOR VARIES BY MEASURED TRIGLYCERIDE AND NON-HDLCHOLESTEROL CONCENTRATIONS WITH INCREASED CALCULATED LDL SEENIN HIGHER TRIGLYCERIDE OR LOWER NON-HDL SPECIMENS. FOR MOREINFORMATION, SEE CLIENT ANNOUNCEMENT AT [email or web address] RISK RATIO LDL/HDL (test code = 2238) 2.96 RATIO <3.55 COMPREHENSIVE METABOLIC [id number] 00:00:00* Test Item Value Reference Range Interpretation Comme nts GLUCOSE (test code = 2217) 167 MG/DL BUN (test code = 2208) 21 MG/DL CREATININE (test code = 2214) 1.18 MG/DL eGFR (2020 CKD-EPI) (test co de = 83394) 72 ML/MIN/1.73 CALC BUN/CREAT (test code = 2235) 18 RATIO SODIUM (test code = 2231) 139 MEQ/L POTASSIUM (test code = 2228) 4.3 MEQ/L CHLORIDE (test code = 2215) 100 MEQ/L CARBON DIOXIDE (test code = 2206) 29 MEQ/L CALCIUM (test code = 2209) 9.7 MG/DL PROTEIN, TOTAL (test code = 2229) 7.4 G/DL ALBUMIN (test code = 2201) 4.1 G/DL CALC GLOBULIN (test code = 2240) 3.3 G/DL CALC A/G RATIO (test code = 2234) 1.2 RATIO BILIRUBIN, TOTAL (test code = 2207) 0.5 MG/DL ALKALINE PHOSPHATASE (test code = 2204) 124 U/L AST (test code = 2218) 17 U/L ALT (test code = 2219) 32 U/L COMPREHENSIVE METABOLIC [id number] 00:00:00* Test Item Value Reference Range Interpretation Comme nts GLUCOSE (test code = 2217) 167 MG/DL BUN (test code = 2208) 21 MG/DL CREATININE (test code = 2214) 1.18 MG/DL eGFR (2020 CKD-EPI) (test co de = 50072) 72 ML/MIN/1.73 CALC BUN/CREAT (test code = 2235) 18 RATIO SODIUM (test code = 2231) 139 MEQ/L POTASSIUM (test code = 2228) 4.3 MEQ/L CHLORIDE (test code = 2215) 100 MEQ/L CARBON DIOXIDE (test code = 2206) 29 MEQ/L CALCIUM (test code = 2209) 9.7 MG/DL PROTEIN, TOTAL (test code = 2229) 7.4 G/DL ALBUMIN (test code = 2201) 4.1 G/DL CALC GLOBULIN (test code = 2240) 3.3 G/DL CALC A/G RATIO (test code = 2234) 1.2 RATIO BILIRUBIN, TOTAL (test code = 2207) 0.5 MG/DL ALKALINE PHOSPHATASE (test code = 2204) 124 U/L AST (test code = 2218) 17 U/L ALT (test code = 2219) 32 U/L LIPID [id number] 00:00:00* Test Item Value Reference Range Interpretation Comme nts CHOLESTEROL (test code = 2210) 240 MG/DL TRIGLYCERIDES (test code = 2232) 160 MG/DL HDL CHOLESTEROL (test code = 2220) 53 MG/DL CALC LDL CHOL (test code = 2237) 157 MG/DL RISK RATIO LDL/HDL (test cod e = 2238) 2.96 RATIO LIPID [id number] 00:00:00* Test Item Value Reference Range Interpretation Comme nts CHOLESTEROL (test code = 2210) 240 MG/DL TRIGLYCERIDES (test code = 2232) 160 MG/DL HDL CHOLESTEROL (test code = 2220) 53 MG/DL CALC LDL CHOL (test code = 2237) 157 MG/DL RISK RATIO LDL/HDL (test cod e = 2238) 2.96 RATIO 2708 HEMOGLOBIN [id number] 00:00:00* Test Item Value Reference Range Interpretation Comme nts HEMOGLOBIN A1c (test code = 72576) 6.2 % 2708 HEMOGLOBIN [id number] 00:00:00* Test Item Value Reference Range Interpretation Comme nts HEMOGLOBIN A1c (test code = 26133) 6.2 % 2708 HEMOGLOBIN [id number] 00:00:00* Test Item Value Reference Range Interpretation Comme nts HEMOGLOBIN A1c (test code = 24953) 6.2 % COMPREHENSIVE METABOLIC [id number] 00:00:00* Test Item Value Reference Range Interpretation Comme nts GLUCOSE (test code = 2217) 167 MG/DL BUN (test code = 2208) 21 MG/DL CREATININE (test code = 2214) 1.18 MG/DL eGFR (2020 CKD-EPI) (test co de = 94886) 72 ML/MIN/1.73 CALC BUN/CREAT (test code = 2235) 18 RATIO SODIUM (test code = 2231) 139 MEQ/L POTASSIUM (test code = 2228) 4.3 MEQ/L CHLORIDE (test code = 2215) 100 MEQ/L CARBON DIOXIDE (test code = 2206) 29 MEQ/L CALCIUM (test code = 2209) 9.7 MG/DL PROTEIN, TOTAL (test code = 2229) 7.4 G/DL ALBUMIN (test code = 2201) 4.1 G/DL CALC GLOBULIN (test code = 2240) 3.3 G/DL CALC A/G RATIO (test code = 2234) 1.2 RATIO BILIRUBIN, TOTAL (test code = 2207) 0.5 MG/DL ALKALINE PHOSPHATASE (test code = 2204) 124 U/L AST (test code = 2218) 17 U/L ALT (test code = 2219) 32 U/L COMPREHENSIVE METABOLIC [id number] 00:00:00* Test Item Value Reference Range Interpretation Comme nts GLUCOSE (test code = 2217) 167 MG/DL BUN (test code = 2208) 21 MG/DL CREATININE (test code = 2214) 1.18 MG/DL eGFR (2020 CKD-EPI) (test co de = 27435) 72 ML/MIN/1.73 CALC BUN/CREAT (test code = 2235) 18 RATIO SODIUM (test code = 2231) 139 MEQ/L POTASSIUM (test code = 2228) 4.3 MEQ/L CHLORIDE (test code = 2215) 100 MEQ/L CARBON DIOXIDE (test code = 2206) 29 MEQ/L CALCIUM (test code = 2209) 9.7 MG/DL PROTEIN, TOTAL (test code = 2229) 7.4 G/DL ALBUMIN (test code = 2201) 4.1 G/DL CALC GLOBULIN (test code = 2240) 3.3 G/DL CALC A/G RATIO (test code = 2234) 1.2 RATIO BILIRUBIN, TOTAL (test code = 2207) 0.5 MG/DL ALKALINE PHOSPHATASE (test code = 2204) 124 U/L AST (test code = 2218) 17 U/L ALT (test code = 2219) 32 U/L LIPID [id number] 00:00:00* Test Item Value Reference Range Interpretation Comme nts CHOLESTEROL (test code = 2210) 240 MG/DL TRIGLYCERIDES (test code = 2232) 160 MG/DL HDL CHOLESTEROL (test code = 2220) 53 MG/DL CALC LDL CHOL (test code = 2237) 157 MG/DL RISK RATIO LDL/HDL (test cod e = 2238) 2.96 RATIO LIPID [id number] 00:00:00* Test Item Value Reference Range Interpretation Comme nts CHOLESTEROL (test code = 2210) 240 MG/DL TRIGLYCERIDES (test code = 2232) 160 MG/DL HDL CHOLESTEROL (test code = 2220) 53 MG/DL CALC LDL CHOL (test code = 2237) 157 MG/DL RISK RATIO LDL/HDL (test cod e = 2238) 2.96 RATIO 2708 HEMOGLOBIN [id number] 00:00:00* Test Item Value Reference Range Interpretation Comme nts HEMOGLOBIN A1c (test code = 89532) 6.2 % 2708 HEMOGLOBIN [id number] 00:00:00* Test Item Value Reference Range Interpretation Comme nts HEMOGLOBIN A1c (test code = 84264) 6.2 % 2708 HEMOGLOBIN [id number] 00:00:00* Test Item Value Reference Range Interpretation Comme nts HEMOGLOBIN A1c (test code = 69416) 6.2 % COMPREHENSIVE METABOLIC [id number] 00:00:00* Test Item Value Reference Range Interpretation Comme nts GLUCOSE (test code = 2217) 167 MG/DL BUN (test code = 2208) 21 MG/DL CREATININE (test code = 2214) 1.18 MG/DL eGFR (2020 CKD-EPI) (test co de = 07218) 72 ML/MIN/1.73 CALC BUN/CREAT (test code = 2235) 18 RATIO SODIUM (test code = 2231) 139 MEQ/L POTASSIUM (test code = 2228) 4.3 MEQ/L CHLORIDE (test code = 2215) 100 MEQ/L CARBON DIOXIDE (test code = 2206) 29 MEQ/L CALCIUM (test code = 2209) 9.7 MG/DL PROTEIN, TOTAL (test code = 2229) 7.4 G/DL ALBUMIN (test code = 2201) 4.1 G/DL CALC GLOBULIN (test code = 2240) 3.3 G/DL CALC A/G RATIO (test code = 2234) 1.2 RATIO BILIRUBIN, TOTAL (test code = 2207) 0.5 MG/DL ALKALINE PHOSPHATASE (test code = 2204) 124 U/L AST (test code = 2218) 17 U/L ALT (test code = 2219) 32 U/L COMPREHENSIVE METABOLIC [id number] 00:00:00* Test Item Value Reference Range Interpretation Comme nts GLUCOSE (test code = 2217) 167 MG/DL BUN (test code = 2208) 21 MG/DL CREATININE (test code = 2214) 1.18 MG/DL eGFR (2020 CKD-EPI) (test co de = 81559) 72 ML/MIN/1.73 CALC BUN/CREAT (test code = 2235) 18 RATIO SODIUM (test code = 2231) 139 MEQ/L POTASSIUM (test code = 2228) 4.3 MEQ/L CHLORIDE (test code = 2215) 100 MEQ/L CARBON DIOXIDE (test code = 2206) 29 MEQ/L CALCIUM (test code = 2209) 9.7 MG/DL PROTEIN, TOTAL (test code = 2229) 7.4 G/DL ALBUMIN (test code = 2201) 4.1 G/DL CALC GLOBULIN (test code = 2240) 3.3 G/DL CALC A/G RATIO (test code = 2234) 1.2 RATIO BILIRUBIN, TOTAL (test code = 2207) 0.5 MG/DL ALKALINE PHOSPHATASE (test code = 2204) 124 U/L AST (test code = 2218) 17 U/L ALT (test code = 2219) 32 U/L COMPREHENSIVE METABOLIC [id number] 00:00:00* Test Item Value Reference Range Interpretation Comme nts GLUCOSE (test code = 2217) 167 MG/DL BUN (test code = 2208) 21 MG/DL CREATININE (test code = 2214) 1.18 MG/DL eGFR (2020 CKD-EPI) (test co de = 60922) 72 ML/MIN/1.73 CALC BUN/CREAT (test code = 2235) 18 RATIO SODIUM (test code = 2231) 139 MEQ/L POTASSIUM (test code = 2228) 4.3 MEQ/L CHLORIDE (test code = 2215) 100 MEQ/L CARBON DIOXIDE (test code = 2206) 29 MEQ/L CALCIUM (test code = 2209) 9.7 MG/DL PROTEIN, TOTAL (test code = 2229) 7.4 G/DL ALBUMIN (test code = 2201) 4.1 G/DL CALC GLOBULIN (test code = 2240) 3.3 G/DL CALC A/G RATIO (test code = 2234) 1.2 RATIO BILIRUBIN, TOTAL (test code = 2207) 0.5 MG/DL ALKALINE PHOSPHATASE (test code = 2204) 124 U/L AST (test code = 2218) 17 U/L ALT (test code = 2219) 32 U/L LIPID [id number] 00:00:00* Test Item Value Reference Range Interpretation Comme nts CHOLESTEROL (test code = 2210) 240 MG/DL TRIGLYCERIDES (test code = 2232) 160 MG/DL HDL CHOLESTEROL (test code = 2220) 53 MG/DL CALC LDL CHOL (test code = 2237) 157 MG/DL RISK RATIO LDL/HDL (test cod e = 2238) 2.96 RATIO LIPID [id number] 00:00:00* Test Item Value Reference Range Interpretation Comme nts CHOLESTEROL (test code = 2210) 240 MG/DL TRIGLYCERIDES (test code = 2232) 160 MG/DL HDL CHOLESTEROL (test code = 2220) 53 MG/DL CALC LDL CHOL (test code = 2237) 157 MG/DL RISK RATIO LDL/HDL (test cod e = 2238) 2.96 RATIO 2708 HEMOGLOBIN [id number] 00:00:00* Test Item Value Reference Range Interpretation Comme nts HEMOGLOBIN A1c (test code = 44860) 6.2 % 2708 HEMOGLOBIN [id number] 00:00:00* Test Item Value Reference Range Interpretation Comme nts HEMOGLOBIN A1c (test code = 21415) 6.2 % 2708 HEMOGLOBIN [id number] 00:00:00* Test Item Value Reference Range Interpretation Comme nts HEMOGLOBIN A1c (test code = 52221) 6.2 % COMPREHENSIVE METABOLIC [id number] 00:00:00* Test Item Value Reference Range Interpretation Comme nts GLUCOSE (test code = 2217) 167 MG/DL BUN (test code = 2208) 21 MG/DL CREATININE (test code = 2214) 1.18 MG/DL eGFR (2020 CKD-EPI) (test co de = 73176) 72 ML/MIN/1.73 CALC BUN/CREAT (test code = 2235) 18 RATIO SODIUM (test code = 2231) 139 MEQ/L POTASSIUM (test code = 2228) 4.3 MEQ/L CHLORIDE (test code = 2215) 100 MEQ/L CARBON DIOXIDE (test code = 2206) 29 MEQ/L CALCIUM (test code = 2209) 9.7 MG/DL PROTEIN, TOTAL (test code = 2229) 7.4 G/DL ALBUMIN (test code = 2201) 4.1 G/DL CALC GLOBULIN (test code = 2240) 3.3 G/DL CALC A/G RATIO (test code = 2234) 1.2 RATIO BILIRUBIN, TOTAL (test code = 2207) 0.5 MG/DL ALKALINE PHOSPHATASE (test code = 2204) 124 U/L AST (test code = 2218) 17 U/L ALT (test code = 2219) 32 U/L LIPID [id number] 00:00:00* Test Item Value Reference Range Interpretation Comme nts CHOLESTEROL (test code = 2210) 240 MG/DL TRIGLYCERIDES (test code = 2232) 160 MG/DL HDL CHOLESTEROL (test code = 2220) 53 MG/DL CALC LDL CHOL (test code = 2237) 157 MG/DL RISK RATIO LDL/HDL (test cod e = 2238) 2.96 RATIO LIPID [id number] 00:00:00* Test Item Value Reference Range Interpretation Comme nts CHOLESTEROL (test code = 2210) 240 MG/DL TRIGLYCERIDES (test code = 2232) 160 MG/DL HDL CHOLESTEROL (test code = 2220) 53 MG/DL CALC LDL CHOL (test code = 2237) 157 MG/DL RISK RATIO LDL/HDL (test cod e = 2238) 2.96 RATIO 2708 HEMOGLOBIN [id number] 00:00:00* Test Item Value Reference Range Interpretation Comme nts HEMOGLOBIN A1c (test code = 64912) 6.2 % 2708 HEMOGLOBIN [id number] 00:00:00* Test Item Value Reference Range Interpretation Comme nts HEMOGLOBIN A1c (test code = 24111) 6.2 % 2708 HEMOGLOBIN [id number] 00:00:00* Test Item Value Reference Range Interpretation Comme nts HEMOGLOBIN A1c (test code = 35173) 6.2 % [id number] 17:51:37* Test Item Value Reference Range Interpretation Comme nts APPEARANCE (test code = 2339085151) Clear Clear COLOR (test code = 7363581052) Yellow Yellow PH (test code = 1759774846) 4.8-8.0 SP GRAVITY (test code = 2886289588) 1.003-1.030 GLU U QUAL (test code = 4161862036) Normal Normal BLOOD (test code = 8289501921) Negative Negative KETONES (test code = 5920314033) Negative Negative PROTEIN (test code = 2887-8) Negative Negative UROBILIN (test code = 9684631102) Normal Normal BILIRUBIN (test code = 4770048165) Negative Negative NITRITE (test code = 5528025459) Negative Negative LEUK SADIQ (test code = 4476247272) Negative Negative RBC/HPF (test code = 3403860864) See_Comment [Automated messa ge] The system which generated this result transmitted reference range: 0 - 3 HPF. The reference range was not used to interpret this result as normal/abnormal. WBC/HPF (test code = 9297688255) See_Comment [Automated [employer]] The system which generated this result transmitted reference range: 0 - 5 HPF. The reference range was not used to interpret this result as normal/abnormal. BACTERIA (test code = 0066741191) Negative Negative MUCOUS (test code = 3812258496) Slight Negative LPF A SQ EPITH (test code = 6520681255) <1 HPF Lab Interpretation (test code = 11969-3) [id number]* Test Item Value Reference Range Interpretation Comme nts APPEARANCE (test code = 0293162379) Clear Clear COLOR (test code = 5330083458) Yellow Yellow PH (test code = 2033476498) 4.8-8.0 SP GRAVITY (test code = 4098387484) 1.003-1.030 GLU U QUAL (test code = 3696647979) Normal Normal BLOOD (test code = 3276749024) Negative Negative KETONES (test code = 6943856873) Negative Negative PROTEIN (test code = 2887-8) Negative Negative UROBILIN (test code = 5197000936) Normal Normal BILIRUBIN (test code = 6826014627) Negative Negative NITRITE (test code = 1058851520) Negative Negative LEUK SADIQ (test code = 8784736962) Negative Negative RBC/HPF (test code = 9499662811) See_Comment [Automated messa ge] The system which generated this result transmitted reference range: 0 - 3 HPF. The reference range was not used to interpret this result as normal/abnormal. WBC/HPF (test code = 1237202524) See_Comment [Automated messa ge] The system which generated this result transmitted reference range: 0 - 5 HPF. The reference range was not used to interpret this result as normal/abnormal. BACTERIA (test code = 8153603891) Negative Negative MUCOUS (test code = 2353692596) Slight Negative LPF A SQ EPITH (test code = 8391480716) <1 HPF Lab Interpretation (test code = 96159-5) [facility] [id number] [facility]:00:00* Test Item Value Reference Range Interpretation Comme nts WBC (test code = 1001) 9.3 K/UL [...] code = 1015) 287 K/UL CBC W/AUTO [id number] 00:00:00* Test Item Value Reference Range Interpretation Comme nts WBC (test code = 1001) 9.3 K/UL [...] code = 1015) 287 K/UL CBC W/AUTO [id number] 00:00:00* Test Item Value Reference Range Interpretation Comme nts WBC (test code = 1001) 9.3 K/UL [...] code = 1015) 287 K/UL COMPREHENSIVE METABOLIC [id number] 00:00:00* Test Item Value Reference Range Interpretation Comme nts GLUCOSE (test code = 2217) 84 MG/DL BUN (test code = 2208) 16 MG/DL CREATININE (test code = 2214) 1.03 MG/DL eGFR AMER. (test cod e = 22938) 94 ML/MIN/1.73 eGFR NON- AMER. (test code = 63095) 81 ML/MIN/1.73 CALC BUN/CREAT (test code = 2235) 16 RATIO SODIUM (test code = 2231) 139 MEQ/L POTASSIUM (test code = 2228) 4.4 MEQ/L CHLORIDE (test code = 2215) 100 MEQ/L CARBON DIOXIDE (test code = 2206) 27 MEQ/L CALCIUM (test code = 2209) 9.6 MG/DL PROTEIN, TOTAL (test code = 2229) 7.6 G/DL ALBUMIN (test code = 2201) 4.5 G/DL CALC GLOBULIN (test code = 2240) 3.1 G/DL CALC A/G RATIO (test code = 2234) 1.5 RATIO BILIRUBIN, TOTAL (test code = 2207) 0.3 MG/DL ALKALINE PHOSPHATASE (test code = 2204) 122 U/L AST (test code = 2218) 20 U/L ALT (test code = 2219) 31 U/L COMPREHENSIVE METABOLIC [id number] 00:00:00* Test Item Value Reference Range Interpretation Comme nts GLUCOSE (test code = 2217) 84 MG/DL BUN (test code = 2208) 16 MG/DL CREATININE (test code = 2214) 1.03 MG/DL eGFR AMER. (test cod e = 93209) 94 ML/MIN/1.73 eGFR NON- AMER. (test code = 47206) 81 ML/MIN/1.73 CALC BUN/CREAT (test code = 2235) 16 RATIO SODIUM (test code = 2231) 139 MEQ/L POTASSIUM (test code = 2228) 4.4 MEQ/L CHLORIDE (test code = 2215) 100 MEQ/L CARBON DIOXIDE (test code = 2206) 27 MEQ/L CALCIUM (test code = 2209) 9.6 MG/DL PROTEIN, TOTAL (test code = 2229) 7.6 G/DL ALBUMIN (test code = 2201) 4.5 G/DL CALC GLOBULIN (test code = 2240) 3.1 G/DL CALC A/G RATIO (test code = 2234) 1.5 RATIO BILIRUBIN, TOTAL (test code = 2207) 0.3 MG/DL ALKALINE PHOSPHATASE (test code = 2204) 122 U/L AST (test code = 2218) 20 U/L ALT (test code = 2219) 31 U/L HEMOGLOBIN [id number] 00:00:00* Test Item Value Reference Range Interpretation Comme nts HEMOGLOBIN A1c (test code = 90833) 5.9 % HEMOGLOBIN [id number] 00:00:00* Test Item Value Reference Range Interpretation Comme nts HEMOGLOBIN A1c (test code = 41519) 5.9 % HEMOGLOBIN [id number] 00:00:00* Test Item Value Reference Range Interpretation Comme nts HEMOGLOBIN A1c (test code = 55799) 5.9 % LIPID [id number] 00:00:00* Test Item Value Reference Range Interpretation Comme nts CHOLESTEROL (test code = 2210) 281 MG/DL TRIGLYCERIDES (test code = 2232) 352 MG/DL HDL CHOLESTEROL (test code = 2220) 49 MG/DL CALC LDL CHOL (test code = 2237) 162 MG/DL RISK RATIO LDL/HDL (test cod e = 2238) 3.30 RATIO LIPID [id number] 00:00:00* Test Item Value Reference Range Interpretation Comme nts CHOLESTEROL (test code = 2210) 281 MG/DL TRIGLYCERIDES (test code = 2232) 352 MG/DL HDL CHOLESTEROL (test code = 2220) 49 MG/DL CALC LDL CHOL (test code = 2237) 162 MG/DL RISK RATIO LDL/HDL (test cod e = 2238) 3.30 RATIO CBC W/AUTO [id number] 00:00:00* Test Item Value Reference Range Interpretation Comme nts WBC (test code = 1001) 9.3 K/UL [...] code = 1015) 287 K/UL CBC W/AUTO [id number] 00:00:00* Test Item Value Reference Range Interpretation Comme nts WBC (test code = 1001) 9.3 K/UL [...] code = 1015) 287 K/UL CBC W/AUTO [id number] 00:00:00* Test Item Value Reference Range Interpretation Comme nts WBC (test code = 1001) 9.3 K/UL [...] code = 1015) 287 K/UL COMPREHENSIVE METABOLIC [id number] 00:00:00* Test Item Value Reference Range Interpretation Comme nts GLUCOSE (test code = 2217) 84 MG/DL BUN (test code = 2208) 16 MG/DL CREATININE (test code = 2214) 1.03 MG/DL eGFR AMER. (test cod e = 07038) 94 ML/MIN/1.73 eGFR NON- AMER. (test code = 11976) 81 ML/MIN/1.73 CALC BUN/CREAT (test code = 2235) 16 RATIO SODIUM (test code = 2231) 139 MEQ/L POTASSIUM (test code = 2228) 4.4 MEQ/L CHLORIDE (test code = 2215) 100 MEQ/L CARBON DIOXIDE (test code = 2206) 27 MEQ/L CALCIUM (test code = 2209) 9.6 MG/DL PROTEIN, TOTAL (test code = 2229) 7.6 G/DL ALBUMIN (test code = 2201) 4.5 G/DL CALC GLOBULIN (test code = 2240) 3.1 G/DL CALC A/G RATIO (test code = 2234) 1.5 RATIO BILIRUBIN, TOTAL (test code = 2207) 0.3 MG/DL ALKALINE PHOSPHATASE (test code = 2204) 122 U/L AST (test code = 2218) 20 U/L ALT (test code = 2219) 31 U/L COMPREHENSIVE METABOLIC [id number] 00:00:00* Test Item Value Reference Range Interpretation Comme nts GLUCOSE (test code = 2217) 84 MG/DL BUN (test code = 2208) 16 MG/DL CREATININE (test code = 2214) 1.03 MG/DL eGFR AMER. (test cod e = 23316) 94 ML/MIN/1.73 eGFR NON- AMER. (test code = 31612) 81 ML/MIN/1.73 CALC BUN/CREAT (test code = 2235) 16 RATIO SODIUM (test code = 2231) 139 MEQ/L POTASSIUM (test code = 2228) 4.4 MEQ/L CHLORIDE (test code = 2215) 100 MEQ/L CARBON DIOXIDE (test code = 2206) 27 MEQ/L CALCIUM (test code = 2209) 9.6 MG/DL PROTEIN, TOTAL (test code = 2229) 7.6 G/DL ALBUMIN (test code = 2201) 4.5 G/DL CALC GLOBULIN (test code = 2240) 3.1 G/DL CALC A/G RATIO (test code = 2234) 1.5 RATIO BILIRUBIN, TOTAL (test code = 2207) 0.3 MG/DL ALKALINE PHOSPHATASE (test code = 2204) 122 U/L AST (test code = 2218) 20 U/L ALT (test code = 2219) 31 U/L HEMOGLOBIN [id number] 00:00:00* Test Item Value Reference Range Interpretation Comme nts HEMOGLOBIN A1c (test code = 02888) 5.9 % HEMOGLOBIN [id number] 00:00:00* Test Item Value Reference Range Interpretation Comme nts HEMOGLOBIN A1c (test code = 74858) 5.9 % HEMOGLOBIN [id number] 00:00:00* Test Item Value Reference Range Interpretation Comme nts HEMOGLOBIN A1c (test code = 36316) 5.9 % LIPID [id number] 00:00:00* Test Item Value Reference Range Interpretation Comme nts CHOLESTEROL (test code = 2210) 281 MG/DL TRIGLYCERIDES (test code = 2232) 352 MG/DL HDL CHOLESTEROL (test code = 2220) 49 MG/DL CALC LDL CHOL (test code = 2237) 162 MG/DL RISK RATIO LDL/HDL (test cod e = 2238) 3.30 RATIO LIPID [id number] 00:00:00* Test Item Value Reference Range Interpretation Comme nts CHOLESTEROL (test code = 2210) 281 MG/DL TRIGLYCERIDES (test code = 2232) 352 MG/DL HDL CHOLESTEROL (test code = 2220) 49 MG/DL CALC LDL CHOL (test code = 2237) 162 MG/DL RISK RATIO LDL/HDL (test cod e = 2238) 3.30 RATIO CBC W/AUTO [id number] 00:00:00* Test Item Value Reference Range Interpretation Comme nts WBC (test code = 1001) 9.3 K/UL [...] code = 1015) 287 K/UL CBC W/AUTO [id number] 00:00:00* Test Item Value Reference Range Interpretation Comme nts WBC (test code = 1001) 9.3 K/UL [...] code = 1015) 287 K/UL CBC W/AUTO [id number] 00:00:00* Test Item Value Reference Range Interpretation Comme nts WBC (test code = 1001) 9.3 K/UL [...] code = 1015) 287 K/UL CBC W/AUTO [id number] 00:00:00* Test Item Value Reference Range Interpretation Comme nts WBC (test code = 1001) 9.3 K/UL [...] code = 1015) 287 K/UL COMPREHENSIVE METABOLIC [id number] 00:00:00* Test Item Value Reference Range Interpretation Comme nts GLUCOSE (test code = 2217) 84 MG/DL BUN (test code = 2208) 16 MG/DL CREATININE (test code = 2214) 1.03 MG/DL eGFR AMER. (test cod e = 65926) 94 ML/MIN/1.73 eGFR NON- AMER. (test code = 01981) 81 ML/MIN/1.73 CALC BUN/CREAT (test code = 2235) 16 RATIO SODIUM (test code = 2231) 139 MEQ/L POTASSIUM (test code = 2228) 4.4 MEQ/L CHLORIDE (test code = 2215) 100 MEQ/L CARBON DIOXIDE (test code = 2206) 27 MEQ/L CALCIUM (test code = 2209) 9.6 MG/DL PROTEIN, TOTAL (test code = 2229) 7.6 G/DL ALBUMIN (test code = 2201) 4.5 G/DL CALC GLOBULIN (test code = 2240) 3.1 G/DL CALC A/G RATIO (test code = 2234) 1.5 RATIO BILIRUBIN, TOTAL (test code = 2207) 0.3 MG/DL ALKALINE PHOSPHATASE (test code = 2204) 122 U/L AST (test code = 2218) 20 U/L ALT (test code = 2219) 31 U/L COMPREHENSIVE METABOLIC [id number] 00:00:00* Test Item Value Reference Range Interpretation Comme nts GLUCOSE (test code = 2217) 84 MG/DL BUN (test code = 2208) 16 MG/DL CREATININE (test code = 2214) 1.03 MG/DL eGFR AMER. (test cod e = 13890) 94 ML/MIN/1.73 eGFR NON- AMER. (test code = 06476) 81 ML/MIN/1.73 CALC BUN/CREAT (test code = 2235) 16 RATIO SODIUM (test code = 2231) 139 MEQ/L POTASSIUM (test code = 2228) 4.4 MEQ/L CHLORIDE (test code = 2215) 100 MEQ/L CARBON DIOXIDE (test code = 2206) 27 MEQ/L CALCIUM (test code = 2209) 9.6 MG/DL PROTEIN, TOTAL (test code = 2229) 7.6 G/DL ALBUMIN (test code = 2201) 4.5 G/DL CALC GLOBULIN (test code = 2240) 3.1 G/DL CALC A/G RATIO (test code = 2234) 1.5 RATIO BILIRUBIN, TOTAL (test code = 2207) 0.3 MG/DL ALKALINE PHOSPHATASE (test code = 2204) 122 U/L AST (test code = 2218) 20 U/L ALT (test code = 2219) 31 U/L HEMOGLOBIN [id number] 00:00:00* Test Item Value Reference Range Interpretation Comme nts HEMOGLOBIN A1c (test code = 03201) 5.9 % HEMOGLOBIN [id number] 00:00:00* Test Item Value Reference Range Interpretation Comme nts HEMOGLOBIN A1c (test code = 98274) 5.9 % HEMOGLOBIN [id number] 00:00:00* Test Item Value Reference Range Interpretation Comme nts HEMOGLOBIN A1c (test code = 44613) 5.9 % LIPID [id number] 00:00:00* Test Item Value Reference Range Interpretation Comme nts CHOLESTEROL (test code = 2210) 281 MG/DL TRIGLYCERIDES (test code = 2232) 352 MG/DL HDL CHOLESTEROL (test code = 2220) 49 MG/DL CALC LDL CHOL (test code = 2237) 162 MG/DL RISK RATIO LDL/HDL (test cod e = 2238) 3.30 RATIO LIPID [id number] 00:00:00* Test Item Value Reference Range Interpretation Comme nts CHOLESTEROL (test code = 2210) 281 MG/DL TRIGLYCERIDES (test code = 2232) 352 MG/DL HDL CHOLESTEROL (test code = 2220) 49 MG/DL CALC LDL CHOL (test code = 2237) 162 MG/DL RISK RATIO LDL/HDL (test cod e = 2238) 3.30 RATIO CBC W/AUTO [id number] 00:00:00* Test Item Value Reference Range Interpretation Comme nts WBC (test code = 1001) 9.3 K/UL [...] code = 1015) 287 K/UL CBC W/AUTO [id number] 00:00:00* Test Item Value Reference Range Interpretation Comme nts WBC (test code = 1001) 9.3 K/UL [...] code = 1015) 287 K/UL COMPREHENSIVE METABOLIC [id number] 00:00:00* Test Item Value Reference Range Interpretation Comme nts GLUCOSE (test code = 2217) 84 MG/DL BUN (test code = 2208) 16 MG/DL CREATININE (test code = 2214) 1.03 MG/DL eGFR AMER. (test cod e = 83728) 94 ML/MIN/1.73 eGFR NON- AMER. (test code = 03897) 81 ML/MIN/1.73 CALC BUN/CREAT (test code = 2235) 16 RATIO SODIUM (test code = 2231) 139 MEQ/L POTASSIUM (test code = 2228) 4.4 MEQ/L CHLORIDE (test code = 2215) 100 MEQ/L CARBON DIOXIDE (test code = 2206) 27 MEQ/L CALCIUM (test code = 2209) 9.6 MG/DL PROTEIN, TOTAL (test code = 2229) 7.6 G/DL ALBUMIN (test code = 2201) 4.5 G/DL CALC GLOBULIN (test code = 2240) 3.1 G/DL CALC A/G RATIO (test code = 2234) 1.5 RATIO BILIRUBIN, TOTAL (test code = 2207) 0.3 MG/DL ALKALINE PHOSPHATASE (test code = 2204) 122 U/L AST (test code = 2218) 20 U/L ALT (test code = 2219) 31 U/L COMPREHENSIVE METABOLIC [id number] 00:00:00* Test Item Value Reference Range Interpretation Comme nts GLUCOSE (test code = 2217) 84 MG/DL BUN (test code = 2208) 16 MG/DL CREATININE (test code = 2214) 1.03 MG/DL eGFR AMER. (test cod e = 50483) 94 ML/MIN/1.73 eGFR NON- AMER. (test code = 66936) 81 ML/MIN/1.73 CALC BUN/CREAT (test code = 2235) 16 RATIO SODIUM (test code = 2231) 139 MEQ/L POTASSIUM (test code = 2228) 4.4 MEQ/L CHLORIDE (test code = 2215) 100 MEQ/L CARBON DIOXIDE (test code = 2206) 27 MEQ/L CALCIUM (test code = 2209) 9.6 MG/DL PROTEIN, TOTAL (test code = 2229) 7.6 G/DL ALBUMIN (test code = 2201) 4.5 G/DL CALC GLOBULIN (test code = 2240) 3.1 G/DL CALC A/G RATIO (test code = 2234) 1.5 RATIO BILIRUBIN, TOTAL (test code = 2207) 0.3 MG/DL ALKALINE PHOSPHATASE (test code = 2204) 122 U/L AST (test code = 2218) 20 U/L ALT (test code = 2219) 31 U/L HEMOGLOBIN [id number] 00:00:00* Test Item Value Reference Range Interpretation Comme nts HEMOGLOBIN A1c (test code = 95429) 5.9 % HEMOGLOBIN [id number] 00:00:00* Test Item Value Reference Range Interpretation Comme nts HEMOGLOBIN A1c (test code = 71010) 5.9 % HEMOGLOBIN [id number] 00:00:00* Test Item Value Reference Range Interpretation Comme nts HEMOGLOBIN A1c (test code = 11651) 5.9 % LIPID [id number] 00:00:00* Test Item Value Reference Range Interpretation Comme nts CHOLESTEROL (test code = 2210) 281 MG/DL TRIGLYCERIDES (test code = 2232) 352 MG/DL HDL CHOLESTEROL (test code = 2220) 49 MG/DL CALC LDL CHOL (test code = 2237) 162 MG/DL RISK RATIO LDL/HDL (test cod e = 2238) 3.30 RATIO LIPID [id number] 00:00:00* Test Item Value Reference Range Interpretation Comme nts CHOLESTEROL (test code = 2210) 281 MG/DL TRIGLYCERIDES (test code = 2232) 352 MG/DL HDL CHOLESTEROL (test code = 2220) 49 MG/DL CALC LDL CHOL (test code = 2237) 162 MG/DL RISK RATIO LDL/HDL (test cod e = 2238) 3.30 RATIO COMPREHENSIVE METABOLIC [id number] 00:00:00* Test Item Value Reference Range Interpretation Comme nts GLUCOSE (test code = 2217) 102 MG/DL BUN (test code = 2208) 18 MG/DL CREATININE (test code = 2214) 1.10 MG/DL eGFR AMER. (test cod e = 19982) 88 ML/MIN/1.73 eGFR NON- AMER. (test code = 33032) 76 ML/MIN/1.73 CALC BUN/CREAT (test code = 2235) 16 RATIO SODIUM (test code = 2231) 138 MEQ/L POTASSIUM (test code = 2228) 4.3 MEQ/L CHLORIDE (test code = 2215) 101 MEQ/L CARBON DIOXIDE (test code = 2206) 27 MEQ/L CALCIUM (test code = 2209) 9.5 MG/DL PROTEIN, TOTAL (test code = 2229) 7.8 G/DL ALBUMIN (test code = 2201) 4.4 G/DL CALC GLOBULIN (test code = 2240) 3.4 G/DL CALC A/G RATIO (test code = 2234) 1.3 RATIO BILIRUBIN, TOTAL (test code = 2207) 0.3 MG/DL ALKALINE PHOSPHATASE (test code = 2204) 110 U/L AST (test code = 2218) 22 U/L ALT (test code = 2219) 32 U/L COMPREHENSIVE METABOLIC [id number] 00:00:00* Test Item Value Reference Range Interpretation Comme nts GLUCOSE (test code = 2217) 102 MG/DL BUN (test code = 2208) 18 MG/DL CREATININE (test code = 2214) 1.10 MG/DL eGFR AMER. (test cod e = 26747) 88 ML/MIN/1.73 eGFR NON- AMER. (test code = 16075) 76 ML/MIN/1.73 CALC BUN/CREAT (test code = 2235) 16 RATIO SODIUM (test code = 2231) 138 MEQ/L POTASSIUM (test code = 2228) 4.3 MEQ/L CHLORIDE (test code = 2215) 101 MEQ/L CARBON DIOXIDE (test code = 2206) 27 MEQ/L CALCIUM (test code = 2209) 9.5 MG/DL PROTEIN, TOTAL (test code = 2229) 7.8 G/DL ALBUMIN (test code = 2201) 4.4 G/DL CALC GLOBULIN (test code = 2240) 3.4 G/DL CALC A/G RATIO (test code = 2234) 1.3 RATIO BILIRUBIN, TOTAL (test code = 2207) 0.3 MG/DL ALKALINE PHOSPHATASE (test code = 2204) 110 U/L AST (test code = 2218) 22 U/L ALT (test code = 2219) 32 U/L LIPID [id number] 00:00:00* Test Item Value Reference Range Interpretation Comme nts CHOLESTEROL (test code = 2210) 262 MG/DL TRIGLYCERIDES (test code = 2232) 189 MG/DL HDL CHOLESTEROL (test code = 2220) 58 MG/DL CALC LDL CHOL (test code = 2237) 166 MG/DL RISK RATIO LDL/HDL (test cod e = 2238) 2.87 RATIO LIPID [id number] 00:00:00* Test Item Value Reference Range Interpretation Comme nts CHOLESTEROL (test code = 2210) 262 MG/DL TRIGLYCERIDES (test code = 2232) 189 MG/DL HDL CHOLESTEROL (test code = 2220) 58 MG/DL CALC LDL CHOL (test code = 2237) 166 MG/DL RISK RATIO LDL/HDL (test cod e = 2238) 2.87 RATIO COMPREHENSIVE METABOLIC [id number] 00:00:00* Test Item Value Reference Range Interpretation Comme nts GLUCOSE (test code = 2217) 102 MG/DL BUN (test code = 2208) 18 MG/DL CREATININE (test code = 2214) 1.10 MG/DL eGFR AMER. (test cod e = 93257) 88 ML/MIN/1.73 eGFR NON- AMER. (test code = 67659) 76 ML/MIN/1.73 CALC BUN/CREAT (test code = 2235) 16 RATIO SODIUM (test code = 2231) 138 MEQ/L POTASSIUM (test code = 2228) 4.3 MEQ/L CHLORIDE (test code = 2215) 101 MEQ/L CARBON DIOXIDE (test code = 2206) 27 MEQ/L CALCIUM (test code = 2209) 9.5 MG/DL PROTEIN, TOTAL (test code = 2229) 7.8 G/DL ALBUMIN (test code = 2201) 4.4 G/DL CALC GLOBULIN (test code = 2240) 3.4 G/DL CALC A/G RATIO (test code = 2234) 1.3 RATIO BILIRUBIN, TOTAL (test code = 2207) 0.3 MG/DL ALKALINE PHOSPHATASE (test code = 2204) 110 U/L AST (test code = 2218) 22 U/L ALT (test code = 2219) 32 U/L COMPREHENSIVE METABOLIC [id number] 00:00:00* Test Item Value Reference Range Interpretation Comme nts GLUCOSE (test code = 2217) 102 MG/DL BUN (test code = 2208) 18 MG/DL CREATININE (test code = 2214) 1.10 MG/DL eGFR AMER. (test cod e = 50330) 88 ML/MIN/1.73 eGFR NON- AMER. (test code = 90278) 76 ML/MIN/1.73 CALC BUN/CREAT (test code = 2235) 16 RATIO SODIUM (test code = 2231) 138 MEQ/L POTASSIUM (test code = 2228) 4.3 MEQ/L CHLORIDE (test code = 2215) 101 MEQ/L CARBON DIOXIDE (test code = 2206) 27 MEQ/L CALCIUM (test code = 2209) 9.5 MG/DL PROTEIN, TOTAL (test code = 2229) 7.8 G/DL ALBUMIN (test code = 2201) 4.4 G/DL CALC GLOBULIN (test code = 2240) 3.4 G/DL CALC A/G RATIO (test code = 2234) 1.3 RATIO BILIRUBIN, TOTAL (test code = 2207) 0.3 MG/DL ALKALINE PHOSPHATASE (test code = 2204) 110 U/L AST (test code = 2218) 22 U/L ALT (test code = 2219) 32 U/L LIPID [id number] 00:00:00* Test Item Value Reference Range Interpretation Comme nts CHOLESTEROL (test code = 2210) 262 MG/DL TRIGLYCERIDES (test code = 2232) 189 MG/DL HDL CHOLESTEROL (test code = 2220) 58 MG/DL CALC LDL CHOL (test code = 2237) 166 MG/DL RISK RATIO LDL/HDL (test cod e = 2238) 2.87 RATIO LIPID [id number] 00:00:00* Test Item Value Reference Range Interpretation Comme nts CHOLESTEROL (test code = 2210) 262 MG/DL TRIGLYCERIDES (test code = 2232) 189 MG/DL HDL CHOLESTEROL (test code = 2220) 58 MG/DL CALC LDL CHOL (test code = 2237) 166 MG/DL RISK RATIO LDL/HDL (test cod e = 2238) 2.87 RATIO COMPREHENSIVE METABOLIC [id number] 00:00:00* Test Item Value Reference Range Interpretation Comme nts GLUCOSE (test code = 2217) 102 MG/DL BUN (test code = 2208) 18 MG/DL CREATININE (test code = 2214) 1.10 MG/DL eGFR AMER. (test cod e = 02643) 88 ML/MIN/1.73 eGFR NON- AMER. (test code = 05926) 76 ML/MIN/1.73 CALC BUN/CREAT (test code = 2235) 16 RATIO SODIUM (test code = 2231) 138 MEQ/L POTASSIUM (test code = 2228) 4.3 MEQ/L CHLORIDE (test code = 2215) 101 MEQ/L CARBON DIOXIDE (test code = 2206) 27 MEQ/L CALCIUM (test code = 2209) 9.5 MG/DL PROTEIN, TOTAL (test code = 2229) 7.8 G/DL ALBUMIN (test code = 2201) 4.4 G/DL CALC GLOBULIN (test code = 2240) 3.4 G/DL CALC A/G RATIO (test code = 2234) 1.3 RATIO BILIRUBIN, TOTAL (test code = 2207) 0.3 MG/DL ALKALINE PHOSPHATASE (test code = 2204) 110 U/L AST (test code = 2218) 22 U/L ALT (test code = 2219) 32 U/L COMPREHENSIVE METABOLIC [id number] 00:00:00* Test Item Value Reference Range Interpretation Comme nts GLUCOSE (test code = 2217) 102 MG/DL BUN (test code = 2208) 18 MG/DL CREATININE (test code = 2214) 1.10 MG/DL eGFR AMER. (test cod e = 37944) 88 ML/MIN/1.73 eGFR NON- AMER. (test code = 31276) 76 ML/MIN/1.73 CALC BUN/CREAT (test code = 2235) 16 RATIO SODIUM (test code = 2231) 138 MEQ/L POTASSIUM (test code = 2228) 4.3 MEQ/L CHLORIDE (test code = 2215) 101 MEQ/L CARBON DIOXIDE (test code = 2206) 27 MEQ/L CALCIUM (test code = 2209) 9.5 MG/DL PROTEIN, TOTAL (test code = 2229) 7.8 G/DL ALBUMIN (test code = 2201) 4.4 G/DL CALC GLOBULIN (test code = 2240) 3.4 G/DL CALC A/G RATIO (test code = 2234) 1.3 RATIO BILIRUBIN, TOTAL (test code = 2207) 0.3 MG/DL ALKALINE PHOSPHATASE (test code = 2204) 110 U/L AST (test code = 2218) 22 U/L ALT (test code = 2219) 32 U/L LIPID [id number] 00:00:00* Test Item Value Reference Range Interpretation Comme nts CHOLESTEROL (test code = 2210) 262 MG/DL TRIGLYCERIDES (test code = 2232) 189 MG/DL HDL CHOLESTEROL (test code = 2220) 58 MG/DL CALC LDL CHOL (test code = 2237) 166 MG/DL RISK RATIO LDL/HDL (test cod e = 2238) 2.87 RATIO LIPID [id number] 00:00:00* Test Item Value Reference Range Interpretation Comme nts CHOLESTEROL (test code = 2210) 262 MG/DL TRIGLYCERIDES (test code = 2232) 189 MG/DL HDL CHOLESTEROL (test code = 2220) 58 MG/DL CALC LDL CHOL (test code = 2237) 166 MG/DL RISK RATIO LDL/HDL (test cod e = 2238) 2.87 RATIO COMPREHENSIVE METABOLIC [id number] 00:00:00* Test Item Value Reference Range Interpretation Comme nts GLUCOSE (test code = 2217) 102 MG/DL BUN (test code = 2208) 18 MG/DL CREATININE (test code = 2214) 1.10 MG/DL eGFR AMER. (test cod e = 31706) 88 ML/MIN/1.73 eGFR NON- AMER. (test code = 51867) 76 ML/MIN/1.73 CALC BUN/CREAT (test code = 2235) 16 RATIO SODIUM (test code = 2231) 138 MEQ/L POTASSIUM (test code = 2228) 4.3 MEQ/L CHLORIDE (test code = 2215) 101 MEQ/L CARBON DIOXIDE (test code = 2206) 27 MEQ/L CALCIUM (test code = 2209) 9.5 MG/DL PROTEIN, TOTAL (test code = 2229) 7.8 G/DL ALBUMIN (test code = 2201) 4.4 G/DL CALC GLOBULIN (test code = 2240) 3.4 G/DL CALC A/G RATIO (test code = 2234) 1.3 RATIO BILIRUBIN, TOTAL (test code = 2207) 0.3 MG/DL ALKALINE PHOSPHATASE (test code = 2204) 110 U/L AST (test code = 2218) 22 U/L ALT (test code = 2219) 32 U/L COMPREHENSIVE METABOLIC [id number] 00:00:00* Test Item Value Reference Range Interpretation Comme nts GLUCOSE (test code = 2217) 102 MG/DL BUN (test code = 2208) 18 MG/DL CREATININE (test code = 2214) 1.10 MG/DL eGFR AMER. (test cod e = 88536) 88 ML/MIN/1.73 eGFR NON- AMER. (test code = 45667) 76 ML/MIN/1.73 CALC BUN/CREAT (test code = 2235) 16 RATIO SODIUM (test code = 2231) 138 MEQ/L POTASSIUM (test code = 2228) 4.3 MEQ/L CHLORIDE (test code = 2215) 101 MEQ/L CARBON DIOXIDE (test code = 2206) 27 MEQ/L CALCIUM (test code = 2209) 9.5 MG/DL PROTEIN, TOTAL (test code = 2229) 7.8 G/DL ALBUMIN (test code = 2201) 4.4 G/DL CALC GLOBULIN (test code = 2240) 3.4 G/DL CALC A/G RATIO (test code = 2234) 1.3 RATIO BILIRUBIN, TOTAL (test code = 2207) 0.3 MG/DL ALKALINE PHOSPHATASE (test code = 2204) 110 U/L AST (test code = 2218) 22 U/L ALT (test code = 2219) 32 U/L LIPID [id number] 00:00:00* Test Item Value Reference Range Interpretation Comme nts CHOLESTEROL (test code = 2210) 262 MG/DL TRIGLYCERIDES (test code = 2232) 189 MG/DL HDL CHOLESTEROL (test code = 2220) 58 MG/DL CALC LDL CHOL (test code = 2237) 166 MG/DL RISK RATIO LDL/HDL (test cod e = 2238) 2.87 RATIO LIPID [id number] 00:00:00* Test Item Value Reference Range Interpretation Comme nts CHOLESTEROL (test code = 2210) 262 MG/DL TRIGLYCERIDES (test code = 2232) 189 MG/DL HDL CHOLESTEROL (test code = 2220) 58 MG/DL CALC LDL CHOL (test code = 2237) 166 MG/DL RISK RATIO LDL/HDL (test cod e = 2238) 2.87 RATIO COMPREHENSIVE METABOLIC [id number] 00:00:00* Test Item Value Reference Range Interpretation Comme nts GLUCOSE (test code = 2217) 79 MG/DL BUN (test code = 2208) 14 MG/DL CREATININE (test code = 2214) 0.95 MG/DL eGFR AMER. (test cod e = 21123) 105 ML/MIN/1.73 eGFR NON- AMER. (test code = 73381) 91 ML/MIN/1.73 CALC BUN/CREAT (test code = 2235) 15 RATIO SODIUM (test code = 2231) 143 MEQ/L POTASSIUM (test code = 2228) 4.5 MEQ/L CHLORIDE (test code = 2215) 101 MEQ/L CARBON DIOXIDE (test code = 2206) 27 MEQ/L CALCIUM (test code = 2209) 9.6 MG/DL PROTEIN, TOTAL (test code = 2229) 7.4 G/DL ALBUMIN (test code = 2201) 4.2 G/DL CALC GLOBULIN (test code = 2240) 3.2 G/DL CALC A/G RATIO (test code = 2234) 1.3 RATIO BILIRUBIN, TOTAL (test code = 2207) 0.4 MG/DL ALKALINE PHOSPHATASE (test code = 2204) 114 U/L AST (test code = 2218) 14 U/L ALT (test code = 2219) 23 U/L COMPREHENSIVE METABOLIC [id number] 00:00:00* Test Item Value Reference Range Interpretation Comme nts GLUCOSE (test code = 2217) 79 MG/DL BUN (test code = 2208) 14 MG/DL CREATININE (test code = 2214) 0.95 MG/DL eGFR AMER. (test cod e = 51569) 105 ML/MIN/1.73 eGFR NON- AMER. (test code = 61038) 91 ML/MIN/1.73 CALC BUN/CREAT (test code = 2235) 15 RATIO SODIUM (test code = 2231) 143 MEQ/L POTASSIUM (test code = 2228) 4.5 MEQ/L CHLORIDE (test code = 2215) 101 MEQ/L CARBON DIOXIDE (test code = 2206) 27 MEQ/L CALCIUM (test code = 2209) 9.6 MG/DL PROTEIN, TOTAL (test code = 2229) 7.4 G/DL ALBUMIN (test code = 2201) 4.2 G/DL CALC GLOBULIN (test code = 2240) 3.2 G/DL CALC A/G RATIO (test code = 2234) 1.3 RATIO BILIRUBIN, TOTAL (test code = 2207) 0.4 MG/DL ALKALINE PHOSPHATASE (test code = 2204) 114 U/L AST (test code = 2218) 14 U/L ALT (test code = 2219) 23 U/L LIPID [id number] 00:00:00* Test Item Value Reference Range Interpretation Comme nts CHOLESTEROL (test code = 2210) 242 MG/DL TRIGLYCERIDES (test code = 2232) 233 MG/DL HDL CHOLESTEROL (test code = 2220) 52 MG/DL CALC LDL CHOL (test code = 2237) 143 MG/DL RISK RATIO LDL/HDL (test cod e = 2238) 2.76 RATIO LIPID [id number] 00:00:00* Test Item Value Reference Range Interpretation Comme nts CHOLESTEROL (test code = 2210) 242 MG/DL TRIGLYCERIDES (test code = 2232) 233 MG/DL HDL CHOLESTEROL (test code = 2220) 52 MG/DL CALC LDL CHOL (test code = 2237) 143 MG/DL RISK RATIO LDL/HDL (test cod e = 2238) 2.76 RATIO COMPREHENSIVE METABOLIC [id number] 00:00:00* Test Item Value Reference Range Interpretation Comme nts GLUCOSE (test code = 2217) 79 MG/DL BUN (test code = 2208) 14 MG/DL CREATININE (test code = 2214) 0.95 MG/DL eGFR AMER. (test cod e = 41480) 105 ML/MIN/1.73 eGFR NON- AMER. (test code = 72655) 91 ML/MIN/1.73 CALC BUN/CREAT (test code = 2235) 15 RATIO SODIUM (test code = 2231) 143 MEQ/L POTASSIUM (test code = 2228) 4.5 MEQ/L CHLORIDE (test code = 2215) 101 MEQ/L CARBON DIOXIDE (test code = 2206) 27 MEQ/L CALCIUM (test code = 2209) 9.6 MG/DL PROTEIN, TOTAL (test code = 2229) 7.4 G/DL ALBUMIN (test code = 2201) 4.2 G/DL CALC GLOBULIN (test code = 2240) 3.2 G/DL CALC A/G RATIO (test code = 2234) 1.3 RATIO BILIRUBIN, TOTAL (test code = 2207) 0.4 MG/DL ALKALINE PHOSPHATASE (test code = 2204) 114 U/L AST (test code = 2218) 14 U/L ALT (test code = 2219) 23 U/L COMPREHENSIVE METABOLIC [id number] 00:00:00* Test Item Value Reference Range Interpretation Comme nts GLUCOSE (test code = 2217) 79 MG/DL BUN (test code = 2208) 14 MG/DL CREATININE (test code = 2214) 0.95 MG/DL eGFR AMER. (test cod e = 34512) 105 ML/MIN/1.73 eGFR NON- AMER. (test code = 81759) 91 ML/MIN/1.73 CALC BUN/CREAT (test code = 2235) 15 RATIO SODIUM (test code = 2231) 143 MEQ/L POTASSIUM (test code = 2228) 4.5 MEQ/L CHLORIDE (test code = 2215) 101 MEQ/L CARBON DIOXIDE (test code = 2206) 27 MEQ/L CALCIUM (test code = 2209) 9.6 MG/DL PROTEIN, TOTAL (test code = 2229) 7.4 G/DL ALBUMIN (test code = 2201) 4.2 G/DL CALC GLOBULIN (test code = 2240) 3.2 G/DL CALC A/G RATIO (test code = 2234) 1.3 RATIO BILIRUBIN, TOTAL (test code = 2207) 0.4 MG/DL ALKALINE PHOSPHATASE (test code = 2204) 114 U/L AST (test code = 2218) 14 U/L ALT (test code = 2219) 23 U/L LIPID [id number] 00:00:00* Test Item Value Reference Range Interpretation Comme nts CHOLESTEROL (test code = 2210) 242 MG/DL TRIGLYCERIDES (test code = 2232) 233 MG/DL HDL CHOLESTEROL (test code = 2220) 52 MG/DL CALC LDL CHOL (test code = 2237) 143 MG/DL RISK RATIO LDL/HDL (test cod e = 2238) 2.76 RATIO LIPID [id number] 00:00:00* Test Item Value Reference Range Interpretation Comme nts CHOLESTEROL (test code = 2210) 242 MG/DL TRIGLYCERIDES (test code = 2232) 233 MG/DL HDL CHOLESTEROL (test code = 2220) 52 MG/DL CALC LDL CHOL (test code = 2237) 143 MG/DL RISK RATIO LDL/HDL (test cod e = 2238) 2.76 RATIO COMPREHENSIVE METABOLIC [id number] 00:00:00* Test Item Value Reference Range Interpretation Comme nts GLUCOSE (test code = 2217) 79 MG/DL BUN (test code = 2208) 14 MG/DL CREATININE (test code = 2214) 0.95 MG/DL eGFR AMER. (test cod e = 05019) 105 ML/MIN/1.73 eGFR NON- AMER. (test code = 55973) 91 ML/MIN/1.73 CALC BUN/CREAT (test code = 2235) 15 RATIO SODIUM (test code = 2231) 143 MEQ/L POTASSIUM (test code = 2228) 4.5 MEQ/L CHLORIDE (test code = 2215) 101 MEQ/L CARBON DIOXIDE (test code = 2206) 27 MEQ/L CALCIUM (test code = 2209) 9.6 MG/DL PROTEIN, TOTAL (test code = 2229) 7.4 G/DL ALBUMIN (test code = 2201) 4.2 G/DL CALC GLOBULIN (test code = 2240) 3.2 G/DL CALC A/G RATIO (test code = 2234) 1.3 RATIO BILIRUBIN, TOTAL (test code = 2207) 0.4 MG/DL ALKALINE PHOSPHATASE (test code = 2204) 114 U/L AST (test code = 2218) 14 U/L ALT (test code = 2219) 23 U/L COMPREHENSIVE METABOLIC [id number] 00:00:00* Test Item Value Reference Range Interpretation Comme nts GLUCOSE (test code = 2217) 79 MG/DL BUN (test code = 2208) 14 MG/DL CREATININE (test code = 2214) 0.95 MG/DL eGFR AMER. (test cod e = 78295) 105 ML/MIN/1.73 eGFR NON- AMER. (test code = 78046) 91 ML/MIN/1.73 CALC BUN/CREAT (test code = 2235) 15 RATIO SODIUM (test code = 2231) 143 MEQ/L POTASSIUM (test code = 2228) 4.5 MEQ/L CHLORIDE (test code = 2215) 101 MEQ/L CARBON DIOXIDE (test code = 2206) 27 MEQ/L CALCIUM (test code = 2209) 9.6 MG/DL PROTEIN, TOTAL (test code = 2229) 7.4 G/DL ALBUMIN (test code = 2201) 4.2 G/DL CALC GLOBULIN (test code = 2240) 3.2 G/DL CALC A/G RATIO (test code = 2234) 1.3 RATIO BILIRUBIN, TOTAL (test code = 2207) 0.4 MG/DL ALKALINE PHOSPHATASE (test code = 2204) 114 U/L AST (test code = 2218) 14 U/L ALT (test code = 2219) 23 U/L COMPREHENSIVE METABOLIC [id number] 00:00:00* Test Item Value Reference Range Interpretation Comme nts GLUCOSE (test code = 2217) 79 MG/DL BUN (test code = 2208) 14 MG/DL CREATININE (test code = 2214) 0.95 MG/DL eGFR AMER. (test cod e = 60227) 105 ML/MIN/1.73 eGFR NON- AMER. (test code = 64689) 91 ML/MIN/1.73 CALC BUN/CREAT (test code = 2235) 15 RATIO SODIUM (test code = 2231) 143 MEQ/L POTASSIUM (test code = 2228) 4.5 MEQ/L CHLORIDE (test code = 2215) 101 MEQ/L CARBON DIOXIDE (test code = 2206) 27 MEQ/L CALCIUM (test code = 2209) 9.6 MG/DL PROTEIN, TOTAL (test code = 2229) 7.4 G/DL ALBUMIN (test code = 2201) 4.2 G/DL CALC GLOBULIN (test code = 2240) 3.2 G/DL CALC A/G RATIO (test code = 2234) 1.3 RATIO BILIRUBIN, TOTAL (test code = 2207) 0.4 MG/DL ALKALINE PHOSPHATASE (test code = 2204) 114 U/L AST (test code = 2218) 14 U/L ALT (test code = 2219) 23 U/L LIPID [id number] 00:00:00* Test Item Value Reference Range Interpretation Comme nts CHOLESTEROL (test code = 2210) 242 MG/DL TRIGLYCERIDES (test code = 2232) 233 MG/DL HDL CHOLESTEROL (test code = 2220) 52 MG/DL CALC LDL CHOL (test code = 2237) 143 MG/DL RISK RATIO LDL/HDL (test cod e = 2238) 2.76 RATIO COMPREHENSIVE METABOLIC [id number] 00:00:00* Test Item Value Reference Range Interpretation Comme nts GLUCOSE (test code = 2217) 79 MG/DL BUN (test code = 2208) 14 MG/DL CREATININE (test code = 2214) 0.95 MG/DL eGFR AMER. (test cod e = 46853) 105 ML/MIN/1.73 eGFR NON- AMER. (test code = 29094) 91 ML/MIN/1.73 CALC BUN/CREAT (test code = 2235) 15 RATIO SODIUM (test code = 2231) 143 MEQ/L POTASSIUM (test code = 2228) 4.5 MEQ/L CHLORIDE (test code = 2215) 101 MEQ/L CARBON DIOXIDE (test code = 2206) 27 MEQ/L CALCIUM (test code = 2209) 9.6 MG/DL PROTEIN, TOTAL (test code = 2229) 7.4 G/DL ALBUMIN (test code = 2201) 4.2 G/DL CALC GLOBULIN (test code = 2240) 3.2 G/DL CALC A/G RATIO (test code = 2234) 1.3 RATIO BILIRUBIN, TOTAL (test code = 2207) 0.4 MG/DL ALKALINE PHOSPHATASE (test code = 2204) 114 U/L AST (test code = 2218) 14 U/L ALT (test code = 2219) 23 U/L LIPID [id number] 00:00:00* Test Item Value Reference Range Interpretation Comme nts CHOLESTEROL (test code = 2210) 242 MG/DL TRIGLYCERIDES (test code = 2232) 233 MG/DL HDL CHOLESTEROL (test code = 2220) 52 MG/DL CALC LDL CHOL (test code = 2237) 143 MG/DL RISK RATIO LDL/HDL (test cod e = 2238) 2.76 RATIO LIPID [id number] 00:00:00* Test Item Value Reference Range Interpretation Comme nts CHOLESTEROL (test code = 2210) 242 MG/DL TRIGLYCERIDES (test code = 2232) 233 MG/DL HDL CHOLESTEROL (test code = 2220) 52 MG/DL CALC LDL CHOL (test code = 2237) 143 MG/DL RISK RATIO LDL/HDL (test cod e = 2238) 2.76 RATIO LIPID [id number] 00:00:00* Test Item Value Reference Range Interpretation Comme nts CHOLESTEROL (test code = 2210) 242 MG/DL TRIGLYCERIDES (test code = 2232) 233 MG/DL HDL CHOLESTEROL (test code = 2220) 52 MG/DL CALC LDL CHOL (test code = 2237) 143 MG/DL RISK RATIO LDL/HDL (test cod e = 2238) 2.76 RATIO COMPREHENSIVE METABOLIC [id number] 00:00:00* Test Item Value Reference Range Interpretation Comme nts GLUCOSE (test code = 2217) 108 MG/DL BUN (test code = 2208) 16 MG/DL CREATININE (test code = 2214) 0.95 MG/DL eGFR AMER. (test cod e = 25211) 107 ML/MIN/1.73 eGFR NON- AMER. (test code = 15593) 92 ML/MIN/1.73 CALCULATED BUN/CREAT (test code = 2235) 17 RATIO SODIUM (test code = 2231) 141 MEQ/L POTASSIUM (test code = 2228) 3.8 MEQ/L CHLORIDE (test code = 2215) 101 MEQ/L CARBON DIOXIDE (test code = 2206) 25 MEQ/L CALCIUM (test code = 2209) 9.1 MG/DL PROTEIN, TOTAL (test code = 2229) 7.2 G/DL ALBUMIN (test code = 2201) 3.9 G/DL CALCULATED GLOBULIN (test code = 2240) 3.3 G/DL CALCULATED A/G RATIO (test code = 2234) 1.2 RATIO BILIRUBIN, TOTAL (test code = 2207) 0.5 MG/DL ALKALINE PHOSPHATASE (test code = 2204) 90 U/L SGOT (AST) (test code = 2218) 17 U/L SGPT (ALT) (test code = 2219) 28 U/L COMPREHENSIVE METABOLIC [id number] 00:00:00* Test Item Value Reference Range Interpretation Comme nts GLUCOSE (test code = 2217) 108 MG/DL BUN (test code = 2208) 16 MG/DL CREATININE (test code = 2214) 0.95 MG/DL eGFR AMER. (test cod e = 53212) 107 ML/MIN/1.73 eGFR NON- AMER. (test code = 59582) 92 ML/MIN/1.73 CALCULATED BUN/CREAT (test code = 2235) 17 RATIO SODIUM (test code = 2231) 141 MEQ/L POTASSIUM (test code = 2228) 3.8 MEQ/L CHLORIDE (test code = 2215) 101 MEQ/L CARBON DIOXIDE (test code = 2206) 25 MEQ/L CALCIUM (test code = 2209) 9.1 MG/DL PROTEIN, TOTAL (test code = 2229) 7.2 G/DL ALBUMIN (test code = 2201) 3.9 G/DL CALCULATED GLOBULIN (test code = 2240) 3.3 G/DL CALCULATED A/G RATIO (test code = 2234) 1.2 RATIO BILIRUBIN, TOTAL (test code = 2207) 0.5 MG/DL ALKALINE PHOSPHATASE (test code = 2204) 90 U/L SGOT (AST) (test code = 2218) 17 U/L SGPT (ALT) (test code = 2219) 28 U/L LIPID [id number] 00:00:00* Test Item Value Reference Range Interpretation Comme nts CHOLESTEROL (test code = 2210) 249 MG/DL TRIGLYCERIDES (test code = 2232) 156 MG/DL HDL CHOLESTEROL (test code = 2220) 55 MG/DL CALCULATED LDL CHOL (test co de = 223) 163 MG/DL RISK RATIO LDL/HDL (test cod e = 2238) 2.96 RATIO LIPID [id number] 00:00:00* Test Item Value Reference Range Interpretation Comme nts CHOLESTEROL (test code = 2210) 249 MG/DL TRIGLYCERIDES (test code = 2232) 156 MG/DL HDL CHOLESTEROL (test code = 2220) 55 MG/DL CALCULATED LDL CHOL (test co de = 2237) 163 MG/DL RISK RATIO LDL/HDL (test cod e = 2238) 2.96 RATIO CBC W/AUTO [id number] 00:00:00* Test Item Value Reference Range Interpretation Comme nts WBC (test code = 1001) 7.1 K/UL [...] code = 1015) 276 K/UL CBC W/AUTO [id number] 00:00:00* Test Item Value Reference Range Interpretation Comme nts WBC (test code = 1001) 7.1 K/UL [...] code = 1015) 276 K/UL CBC W/AUTO [id number] 00:00:00* Test Item Value Reference Range Interpretation Comme nts WBC (test code = 1001) 7.1 K/UL [...] (test code = 1015) 276 K/UL HEMOGLOBIN [id number] 00:00:00* Test Item Value Reference Range Interpretation Comme nts HEMOGLOBIN A1c (test code = 12714) 5.9 % HEMOGLOBIN [id number] 00:00:00* Test Item Value Reference Range Interpretation Comme nts HEMOGLOBIN A1c (test code = 07601) 5.9 % HEMOGLOBIN [id number] 00:00:00* Test Item Value Reference Range Interpretation Comme nts HEMOGLOBIN A1c (test code = 73990) 5.9 % [id number] 00:00:00* Test Item Value Reference Range Interpretation Comme nts TSH (test code = 2821) 2.1 UIU/ML [id number] 00:00:00* Test Item Value Reference Range Interpretation Comme nts TSH (test code = 2821) 2.1 UIU/ML [id number] 00:00:00* Test Item Value Reference Range Interpretation Comme nts TSH (test code = 2821) 2.1 UIU/ML COMPREHENSIVE METABOLIC [id number] 00:00:00* Test Item Value Reference Range Interpretation Comme nts GLUCOSE (test code = 2217) 108 MG/DL BUN (test code = 2208) 16 MG/DL CREATININE (test code = 2214) 0.95 MG/DL eGFR AMER. (test cod e = 01128) 107 ML/MIN/1.73 eGFR NON- AMER. (test code = 24954) 92 ML/MIN/1.73 CALCULATED BUN/CREAT (test code = 2235) 17 RATIO SODIUM (test code = 2231) 141 MEQ/L POTASSIUM (test code = 2228) 3.8 MEQ/L CHLORIDE (test code = 2215) 101 MEQ/L CARBON DIOXIDE (test code = 2206) 25 MEQ/L CALCIUM (test code = 2209) 9.1 MG/DL PROTEIN, TOTAL (test code = 2229) 7.2 G/DL ALBUMIN (test code = 2201) 3.9 G/DL CALCULATED GLOBULIN (test code = 2240) 3.3 G/DL CALCULATED A/G RATIO (test code = 2234) 1.2 RATIO BILIRUBIN, TOTAL (test code = 2207) 0.5 MG/DL ALKALINE PHOSPHATASE (test code = 2204) 90 U/L SGOT (AST) (test code = 2218) 17 U/L SGPT (ALT) (test code = 2219) 28 U/L COMPREHENSIVE METABOLIC [id number] 00:00:00* Test Item Value Reference Range Interpretation Comme nts GLUCOSE (test code = 2217) 108 MG/DL BUN (test code = 2208) 16 MG/DL CREATININE (test code = 2214) 0.95 MG/DL eGFR AMER. (test cod e = 21914) 107 ML/MIN/1.73 eGFR NON- AMER. (test code = 55468) 92 ML/MIN/1.73 CALCULATED BUN/CREAT (test code = 2235) 17 RATIO SODIUM (test code = 2231) 141 MEQ/L POTASSIUM (test code = 2228) 3.8 MEQ/L CHLORIDE (test code = 2215) 101 MEQ/L CARBON DIOXIDE (test code = 2206) 25 MEQ/L CALCIUM (test code = 2209) 9.1 MG/DL PROTEIN, TOTAL (test code = 2229) 7.2 G/DL ALBUMIN (test code = 2201) 3.9 G/DL CALCULATED GLOBULIN (test code = 2240) 3.3 G/DL CALCULATED A/G RATIO (test code = 2234) 1.2 RATIO BILIRUBIN, TOTAL (test code = 2207) 0.5 MG/DL ALKALINE PHOSPHATASE (test code = 2204) 90 U/L SGOT (AST) (test code = 2218) 17 U/L SGPT (ALT) (test code = 2219) 28 U/L LIPID [id number] 00:00:00* Test Item Value Reference Range Interpretation Comme nts CHOLESTEROL (test code = 2210) 249 MG/DL TRIGLYCERIDES (test code = 2232) 156 MG/DL HDL CHOLESTEROL (test code = 2220) 55 MG/DL CALCULATED LDL CHOL (test co de = 2237) 163 MG/DL RISK RATIO LDL/HDL (test cod e = 2238) 2.96 RATIO LIPID [id number] 00:00:00* Test Item Value Reference Range Interpretation Comme nts CHOLESTEROL (test code = 2210) 249 MG/DL TRIGLYCERIDES (test code = 2232) 156 MG/DL HDL CHOLESTEROL (test code = 2220) 55 MG/DL CALCULATED LDL CHOL (test co de = 2237) 163 MG/DL RISK RATIO LDL/HDL (test cod e = 2238) 2.96 RATIO CBC W/AUTO [id number] 00:00:00* Test Item Value Reference Range Interpretation Comme nts WBC (test code = 1001) 7.1 K/UL [...] code = 1015) 276 K/UL CBC W/AUTO [id number] 00:00:00* Test Item Value Reference Range Interpretation Comme nts WBC (test code = 1001) 7.1 K/UL [...] code = 1015) 276 K/UL CBC W/AUTO [id number] 00:00:00* Test Item Value Reference Range Interpretation Comme nts WBC (test code = 1001) 7.1 K/UL [...] (test code = 1015) 276 K/UL HEMOGLOBIN [id number] 00:00:00* Test Item Value Reference Range Interpretation Comme nts HEMOGLOBIN A1c (test code = 88216) 5.9 % HEMOGLOBIN [id number] 00:00:00* Test Item Value Reference Range Interpretation Comme nts HEMOGLOBIN A1c (test code = 67884) 5.9 % HEMOGLOBIN [id number] 00:00:00* Test Item Value Reference Range Interpretation Comme nts HEMOGLOBIN A1c (test code = 85179) 5.9 % [id number] 00:00:00* Test Item Value Reference Range Interpretation Comme nts TSH (test code = 2821) 2.1 UIU/ML [id number] 00:00:00* Test Item Value Reference Range Interpretation Comme nts TSH (test code = 2821) 2.1 UIU/ML [id number] 00:00:00* Test Item Value Reference Range Interpretation Comme nts TSH (test code = 2821) 2.1 UIU/ML COMPREHENSIVE METABOLIC [id number] 00:00:00* Test Item Value Reference Range Interpretation Comme nts GLUCOSE (test code = 2217) 108 MG/DL BUN (test code = 2208) 16 MG/DL CREATININE (test code = 2214) 0.95 MG/DL eGFR AMER. (test cod e = 20197) 107 ML/MIN/1.73 eGFR NON- AMER. (test code = 47757) 92 ML/MIN/1.73 CALCULATED BUN/CREAT (test code = 2235) 17 RATIO SODIUM (test code = 2231) 141 MEQ/L POTASSIUM (test code = 2228) 3.8 MEQ/L CHLORIDE (test code = 2215) 101 MEQ/L CARBON DIOXIDE (test code = 2206) 25 MEQ/L CALCIUM (test code = 2209) 9.1 MG/DL PROTEIN, TOTAL (test code = 2229) 7.2 G/DL ALBUMIN (test code = 2201) 3.9 G/DL CALCULATED GLOBULIN (test code = 2240) 3.3 G/DL CALCULATED A/G RATIO (test code = 2234) 1.2 RATIO BILIRUBIN, TOTAL (test code = 2207) 0.5 MG/DL ALKALINE PHOSPHATASE (test code = 2204) 90 U/L SGOT (AST) (test code = 2218) 17 U/L SGPT (ALT) (test code = 2219) 28 U/L COMPREHENSIVE METABOLIC [id number] 00:00:00* Test Item Value Reference Range Interpretation Comme nts GLUCOSE (test code = 2217) 108 MG/DL BUN (test code = 2208) 16 MG/DL CREATININE (test code = 2214) 0.95 MG/DL eGFR AMER. (test cod e = 73077) 107 ML/MIN/1.73 eGFR NON- AMER. (test code = 40148) 92 ML/MIN/1.73 CALCULATED BUN/CREAT (test code = 2235) 17 RATIO SODIUM (test code = 2231) 141 MEQ/L POTASSIUM (test code = 2228) 3.8 MEQ/L CHLORIDE (test code = 2215) 101 MEQ/L CARBON DIOXIDE (test code = 2206) 25 MEQ/L CALCIUM (test code = 2209) 9.1 MG/DL PROTEIN, TOTAL (test code = 2229) 7.2 G/DL ALBUMIN (test code = 2201) 3.9 G/DL CALCULATED GLOBULIN (test code = 2240) 3.3 G/DL CALCULATED A/G RATIO (test code = 2234) 1.2 RATIO BILIRUBIN, TOTAL (test code = 2207) 0.5 MG/DL ALKALINE PHOSPHATASE (test code = 2204) 90 U/L SGOT (AST) (test code = 2218) 17 U/L SGPT (ALT) (test code = 2219) 28 U/L LIPID [id number] 00:00:00* Test Item Value Reference Range Interpretation Comme nts CHOLESTEROL (test code = 2210) 249 MG/DL TRIGLYCERIDES (test code = 2232) 156 MG/DL HDL CHOLESTEROL (test code = 2220) 55 MG/DL CALCULATED LDL CHOL (test co de = 2237) 163 MG/DL RISK RATIO LDL/HDL (test cod e = 2238) 2.96 RATIO LIPID [id number] 00:00:00* Test Item Value Reference Range Interpretation Comme nts CHOLESTEROL (test code = 2210) 249 MG/DL TRIGLYCERIDES (test code = 2232) 156 MG/DL HDL CHOLESTEROL (test code = 2220) 55 MG/DL CALCULATED LDL CHOL (test co de = 2237) 163 MG/DL RISK RATIO LDL/HDL (test cod e = 2238) 2.96 RATIO COMPREHENSIVE METABOLIC [id number] 00:00:00* Test Item Value Reference Range Interpretation Comme nts GLUCOSE (test code = 2217) 108 MG/DL BUN (test code = 2208) 16 MG/DL CREATININE (test code = 2214) 0.95 MG/DL eGFR AMER. (test cod e = 40685) 107 ML/MIN/1.73 eGFR NON- AMER. (test code = 40573) 92 ML/MIN/1.73 CALCULATED BUN/CREAT (test code = 2235) 17 RATIO SODIUM (test code = 2231) 141 MEQ/L POTASSIUM (test code = 2228) 3.8 MEQ/L CHLORIDE (test code = 2215) 101 MEQ/L CARBON DIOXIDE (test code = 2206) 25 MEQ/L CALCIUM (test code = 2209) 9.1 MG/DL PROTEIN, TOTAL (test code = 2229) 7.2 G/DL ALBUMIN (test code = 2201) 3.9 G/DL CALCULATED GLOBULIN (test code = 2240) 3.3 G/DL CALCULATED A/G RATIO (test code = 2234) 1.2 RATIO BILIRUBIN, TOTAL (test code = 2207) 0.5 MG/DL ALKALINE PHOSPHATASE (test code = 2204) 90 U/L SGOT (AST) (test code = 2218) 17 U/L SGPT (ALT) (test code = 2219) 28 U/L CBC W/AUTO [id number] 00:00:00* Test Item Value Reference Range Interpretation Comme nts WBC (test code = 1001) 7.1 K/UL [...] code = 1015) 276 K/UL CBC W/AUTO [id number] 00:00:00* Test Item Value Reference Range Interpretation Comme nts WBC (test code = 1001) 7.1 K/UL [...] code = 1015) 276 K/UL CBC W/AUTO [id number] 00:00:00* Test Item Value Reference Range Interpretation Comme nts WBC (test code = 1001) 7.1 K/UL [...] (test code = 1015) 276 K/UL HEMOGLOBIN [id number] 00:00:00* Test Item Value Reference Range Interpretation Comme nts HEMOGLOBIN A1c (test code = 36150) 5.9 % HEMOGLOBIN [id number] 00:00:00* Test Item Value Reference Range Interpretation Comme nts HEMOGLOBIN A1c (test code = 51771) 5.9 % HEMOGLOBIN [id number] 00:00:00* Test Item Value Reference Range Interpretation Comme nts HEMOGLOBIN A1c (test code = 69354) 5.9 % [id number] 00:00:00* Test Item Value Reference Range Interpretation Comme nts TSH (test code = 2821) 2.1 UIU/ML [id number] 00:00:00* Test Item Value Reference Range Interpretation Comme nts TSH (test code = 2821) 2.1 UIU/ML [id number] 00:00:00* Test Item Value Reference Range Interpretation Comme nts TSH (test code = 2821) 2.1 UIU/ML COMPREHENSIVE METABOLIC [id number] 00:00:00* Test Item Value Reference Range Interpretation Comme nts GLUCOSE (test code = 2217) 108 MG/DL BUN (test code = 2208) 16 MG/DL CREATININE (test code = 2214) 0.95 MG/DL eGFR AMER. (test cod e = 75061) 107 ML/MIN/1.73 eGFR NON- AMER. (test code = 67074) 92 ML/MIN/1.73 CALCULATED BUN/CREAT (test code = 2235) 17 RATIO SODIUM (test code = 2231) 141 MEQ/L POTASSIUM (test code = 2228) 3.8 MEQ/L CHLORIDE (test code = 2215) 101 MEQ/L CARBON DIOXIDE (test code = 2206) 25 MEQ/L CALCIUM (test code = 2209) 9.1 MG/DL PROTEIN, TOTAL (test code = 2229) 7.2 G/DL ALBUMIN (test code = 2201) 3.9 G/DL CALCULATED GLOBULIN (test code = 2240) 3.3 G/DL CALCULATED A/G RATIO (test code = 2234) 1.2 RATIO BILIRUBIN, TOTAL (test code = 2207) 0.5 MG/DL ALKALINE PHOSPHATASE (test code = 2204) 90 U/L SGOT (AST) (test code = 2218) 17 U/L SGPT (ALT) (test code = 2219) 28 U/L LIPID [id number] 00:00:00* Test Item Value Reference Range Interpretation Comme nts CHOLESTEROL (test code = 2210) 249 MG/DL TRIGLYCERIDES (test code = 2232) 156 MG/DL HDL CHOLESTEROL (test code = 2220) 55 MG/DL CALCULATED LDL CHOL (test co de = 2237) 163 MG/DL RISK RATIO LDL/HDL (test cod e = 2238) 2.96 RATIO LIPID [id number] 00:00:00* Test Item Value Reference Range Interpretation Comme nts CHOLESTEROL (test code = 2210) 249 MG/DL TRIGLYCERIDES (test code = 2232) 156 MG/DL HDL CHOLESTEROL (test code = 2220) 55 MG/DL CALCULATED LDL CHOL (test co de = 2237) 163 MG/DL RISK RATIO LDL/HDL (test cod e = 2238) 2.96 RATIO CBC W/AUTO [id number] 00:00:00* Test Item Value Reference Range Interpretation Comme nts WBC (test code = 1001) 7.1 K/UL [...] code = 1015) 276 K/UL CBC W/AUTO [id number] 00:00:00* Test Item Value Reference Range Interpretation Comme nts WBC (test code = 1001) 7.1 K/UL [...] code = 1015) 276 K/UL CBC W/AUTO [id number] 00:00:00* Test Item Value Reference Range Interpretation Comme nts WBC (test code = 1001) 7.1 K/UL [...] (test code = 1015) 276 K/UL HEMOGLOBIN [id number] 00:00:00* Test Item Value Reference Range Interpretation Comme nts HEMOGLOBIN A1c (test code = 24726) 5.9 % HEMOGLOBIN [id number] 00:00:00* Test Item Value Reference Range Interpretation Comme nts HEMOGLOBIN A1c (test code = 51859) 5.9 % HEMOGLOBIN [id number] 00:00:00* Test Item Value Reference Range Interpretation Comme nts HEMOGLOBIN A1c (test code = 10656) 5.9 % [id number] 00:00:00* Test Item Value Reference Range Interpretation Comme nts TSH (test code = 2821) 2.1 UIU/ML [id number] 00:00:00* Test Item Value Reference Range Interpretation Comme nts TSH (test code = 2821) 2.1 UIU/ML [id number] 00:00:00* Test Item Value Reference Range Interpretation Comme nts TSH (test code = 2821) 2.1 UIU/ML Notes Date/Time Note Provider Source 2023-10-14 14:33:37 k/VwK7O6Mow/LfEkviEK pRXGQW9+g+GqlK7vN t435zPRRJryxHo3NencHVC7R6Ol3007-19-59 T14:33:37 Chief ComplaintPatient presents withChin Berumen 27263-8Ncchn NgppLY5853-17-91O54:40:33Nurse NoteTXT1.2.840.481852.1.13.131.2.7.2. 623399|[id number] for patient oasi13611-7Qepmm NoteLNNARRATIVEFormatted C-CDA narrative [facility] [facility].[id number] 6258-35-99Z14:40:331.2.840.496732.1.7 2.3.15|1.2.840.938672.1.13.131.2.7.2. [id number] [facility] 2023-10-14 11:03:10 ouih7XM/hRKR1HBJEanX 5Uk09joGerxu8OD5y rl+gEwjeG1oUTpUw47f6U27GzzQ4219-68-94 T11:03:10 Chief ComplaintPatient presents withFollow-upbilateral knee painAngelica Belleectronically signed by Joyce Pinedo MA I at 10/14/2023 11:04 AM XSZ43492-4Gopfh StczQP1764-58-58M63:04:15Nurse NoteTXT1.2.840.151045.1.13.131.2.7.2. 837615|[id number] for patient sixf81575-4Uhdqv NoteLNNARRATIVEFormatted C-CDA narrative [facility] [facility] [id number] 0864-39-71W56:04:151.2.840.379174.1.7 2.3.15|1.2.840.005382.1.13.131.2.7.2. [id number] [facility] 2023-09-19 16:17:23 dEM+w7iKuYGERBgEq85G mN+94vmQWlIVihlnl vu9bccRaDAFjQlHJ24eM2xaZ8bC2347-51-86 T16:17:23 Chief ComplaintPatient presents withShortness of BreathC/O CPAP doesn't seem to work, pain all over his body all the time, Lower back and shouldersJeri En Burciagaectronically signed by Tamra Burciaga LVN at 09/19/2023 4:38 PM DHK59893-2Rfapn GmasGT9054-88-75J86:38:55Nurse NoteTXT1.2.840.698420.1.13.131.2.7.2. 868024|[id number] for patient ilqy32747-0Ptwyg NoteLNNARRATIVEFormatted C-CDA narrative [facility] [facility].[id number] 4087-97-60W00:38:551.2.840.400105.1.7 2.3.15|1.2.840.896316.1.13.131.2.7.2. [id number] [facility] 2023-09-02 14:02:15 gGSodxUdyZ13CMRMhc+K DJRovwhzOAZ2Ds04y UwSUmtIKSqNfdXdZfu22WVAUGjw5447-66-10 T14:02:15 Chief ComplaintPatient presents withOTHERB[place] [address]-8Snvof UpiwLJ6097-90-30D17:02:21Nurse NoteTXT1.2.840.532044.1.13.131.2.7.2. [id number] for patient [id number] NoteLNNARRATIVEFormatted C-CDA narrative textRiver Falls Area Hospital2727 [facility].[id number] [facility]"
--- NOTE | 2023-12-25 21:59 | ER ---
Nurse's Notes [facility] Name: Soy Frias Age: 58 yrs Sex: Male : 1965 Arrival Date: 12/25/2023 Time: : Bed 11 Private MD: Diagnosis: Pain in right knee Presentation: 12/24 21:54 Chief complaint: Patient states: 2 weeks of right knee pain that is swelling now; km8 chronic right knee pain, scheduled for injection a few months from now. Coronavirus screen: Client denies travel out of the [place] in the last 14 days. Ebola Screen: No symptoms or risks identified at this time. Initial Sepsis Screen: Does the patient meet any 2 criteria? HR > 90 bpm. No. Patient's initial sepsis screen is negative. Does the patient have a suspected source of infection? No. Patient's initial sepsis screen is negative. Risk Assessment: Do you want to hurt yourself or someone else? Patient reports no desire to harm self or others. Onset of symptoms was December 11, 2023. 21:54 Method Of Arrival: Ambulatory km8 21:54 Acuity: JANIS 3 km8 Triage Assessment: 21:55 General: Appears in no apparent distress. uncomfortable, Behavior is calm, cooperative, km8 appropriate for age. Pain: Complains of pain in right knee Pain currently is 7 out of 10 on a pain scale. EENT: No signs and/or symptoms were reported regarding the EENT system. Neuro: Level of Consciousness is awake, alert, obeys commands, Oriented to person, place, time, situation. Cardiovascular: Denies chest pain, shortness of breath, Patient's skin is warm and dry. Respiratory: Airway is patent Respiratory effort is even, unlabored, Respiratory pattern is regular, symmetrical. GI: No signs and/or symptoms were reported involving the gastrointestinal system. : No signs and/or symptoms were reported regarding the genitourinary system. Derm: No signs and/or symptoms reported regarding the dermatologic system. Skin is intact, is healthy with good turgor, Skin is dry, Skin is pink, warm \T\ dry. normal, Skin temperature is warm. Musculoskeletal: Range of motion: limited in right knee Swelling present in right knee Reports pain in right knee. Historical: - Allergies: 21:55 No Known Allergies; km8 - PMHx: 21:55 Hypercholesterolemia; Hypertension; km8 - PSHx: 21:55 None; km8 - Immunization history:: Adult Immunizations up to date. - Infectious Disease History:: Denies. - Social history:: Smoking status: Patient denies any tobacco usage or history of. Patient/guardian denies using alcohol, street drugs. Screenin:58 [facility] ED Fall Risk Assessment (Adult) History of falling in the last 3 months, km8 including since admission No falls in past 3 months (0 pts) Confusion or Disorientation No (0 pts) Intoxicated or Sedated No (0 pts) Impaired Gait Yes (1 pt) Mobility Assist Device Used No (0 pt) Altered Elimination No (0 pt) Score/Fall Risk Level 0 - 2 = Low Risk Oriented to surroundings, Maintained a safe environment, Educated pt \T\ family on fall prevention, incl call for assistance when getting out of bed, Assessed \T\ reinforced patient's understanding of fall precautions. Abuse screen: Denies threats or abuse. Denies injuries from another. Nutritional screening: No deficits noted. Tuberculosis screening: No symptoms or risk factors identified. Assessment: 21:59 Reassessment: see triage assessment. km8 22:05 Reassessment: waiting for designated sprinkler driver, to pick patient up due to narcatic km8 being given. Vital Signs: 21:54 BP 109 / 88; Pulse 92; Resp 18; Temp 97(TE); Pulse Ox 97% on R/A; Weight 127.01 kg (R); km8 Height 5 ft. 7 in. (R); Pain 7/10; 21:54 Body Mass Index 43.85 (127.01 kg, 170.18 cm) km8 21:54 Pain Scale: Adult km8 Odum Coma Score: 21:59 Eye Response: spontaneous(4). Motor Response: obeys commands(6). Verbal Response: km8 oriented(5). Total: 15. ED Course: 21:26 Patient arrived in ED. ra3 21:28 [facility]i Comer [facility]-C [facility]. kb 21:28 Uriel Krueger MD is Attending Physician. kb 21:55 Triage completed. km8 21:55 Arm band placed on right wrist. km8 21:59 Patient has correct armband on for positive identification. Bed in low position. Side km8 rails up X 1. 21:59 No provider procedures requiring assistance completed. Patient did not have IV access km8 during this emergency room visit. 22:04 Sadaf Garcia, RN is Primary Nurse. km8 22:24 Provided Education on: d/c teaching. km8 Administered Medications: 22:05 Drug: Dexamethasone IM 10 mg IM once Route: IM; Site: right ventrogluteal; km8 22:24 Follow up: Response: No adverse reaction km8 22:05 Drug: [place] PO 10 mg-325 mg 1 tabs PO once Route: PO; km8 22:24 Follow up: Response: No adverse reaction km8 Medication: 21:59 VIS not applicable for this client. km8 Outcome: 21:58 Discharge ordered by . kb 22:24 Discharged to home ambulatory, with significant other, km8 22:24 Condition: good 22:24 Discharge instructions given to patient, significant other, Instructed on discharge instructions, follow up and referral plans. medication usage, Demonstrated understanding of instructions, follow-up care, medications, Prescriptions given X 1, 22:25 Patient left the ED. km8 Signatures: Angi Comer, DENTAL CERAMIST ASSISTANT-C DENTAL CERAMIST ASSISTANT-Ckb Sadaf Garcia, RON RN km8 Nelda Metcalf ra3 Corrections: (The following items were deleted from the chart) 21:57 21:55 PMHx: diabetes mellitus; km8 km8 21:57 21:55 Arm band placed on right wrist. Patient placed in waiting room, Patient notified km8 of wait time km8
--- NOTE | 2023-12-25 21:59 | EDPHYS ---
Physician Documentation [facility] Name: Soy Frias Age: 58 yrs Sex: Male : 1965 Arrival Date: 12/25/2023 Time: 21:22 Bed 11 Private MD: ED Physician Uriel Krueger HPI: 12/24 21:51 This 58 yrs old Male presents to ER via Unassigned with complaints of Knee kb Pain - swelling. 21:51 Pt is a 58 year old male who presents for right knee pain for 2 weeks. States the joint kb is bone on bone and he normally takes medications for it and gets injections, but nothing is working right now and he doesn't have another appt for a month. . Historical: - Allergies: 21:55 No Known Allergies; km8 - PMHx: 21:55 Hypercholesterolemia; Hypertension; km8 - PSHx: 21:55 None; km8 - Immunization history:: Adult Immunizations up to date. - Infectious Disease History:: Denies. - Social history:: Smoking status: Patient denies any tobacco usage or history of. Patient/guardian denies using alcohol, street drugs. ROS: 21:51 Constitutional: As per HPI kb Exam: 21:51 Constitutional: This is a well developed, well nourished patient who is awake, alert, kb and in no acute distress. Head/Face: Normocephalic, atraumatic. ENT: Moist Mucous membranes Cardiovascular: Regular rate Respiratory: Respirations even and unlabored. No increased work of breathing. Talking in full sentences Abdomen/GI: Soft, non-tender. No distention Skin: Warm, dry with normal turgor. Normal color. Neuro: Awake and alert, GCS 15, oriented to person, place, time, and situation. Moves all extremities. Normal gait. 21:57 Musculoskeletal/extremity: Extremities: grossly normal except: noted in the right knee: kb pain, swelling, ROM: intact in all extremities, Circulation is intact in all extremities. Sensation intact. Weight bearing: able to fully bear weight, Vital Signs: 21:54 BP 109 / 88; Pulse 92; Resp 18; Temp 97(TE); Pulse Ox 97% on R/A; Weight 127.01 kg (R); km8 Height 5 ft. 7 in. (R); Pain 7/10; 21:54 Body Mass Index 43.85 (127.01 kg, 170.18 cm) km8 21:54 Pain Scale: Adult km8 Howard Coma Score: 21:59 Eye Response: spontaneous(4). Motor Response: obeys commands(6). Verbal Response: km8 oriented(5). Total: 15. MDM: 21:28 Patient medically screened. kb 21:57 Differential diagnosis: sprain, strain, arthritis. Data reviewed: vital signs, nurses kb notes. Test considered but Not performed: X-ray: knee x-ray considered, but pt has had no injury and states this is a pain that he has had for a long time. Counseling: I had a detailed discussion with the patient and/or guardian regarding the historical points, exam findings, and any diagnostic results supporting the discharge/admit diagnosis, the need for outpatient follow up, a orthopedic surgeon, to return to the emergency department if symptoms worsen or persist or if there are any questions or concerns that arise at home. ED course: Pt will call orthopedist in [place] tomorrow to get an earlier appt. Administered Medications: 22:05 Drug: Dexamethasone IM 10 mg IM once Route: IM; Site: right ventrogluteal; km8 22:24 Follow up: Response: No adverse reaction km8 22:05 Drug: [place] PO 10 mg-325 mg 1 tabs PO once Route: PO; km8 22:24 Follow up: Response: No adverse reaction km8 Disposition: 12/25 05:20 Co-signature as Attending Physician, Uriel Krueger MD I agree with the assessment sp4 and plan of care. I reviewed the patient's care provided by the Advanced Practice Provider and agree with the diagnosis and treatment plan. Disposition Summary: 12/25/23 21:58 Discharge Ordered Notes: Location: Home kb Condition: Stable kb Diagnosis - Pain in right knee kb Followup: kb - With: Emergency Department - When: As needed - Reason: Worsening of condition Followup: kb - With: Private Physician - When: 2 - 3 days - Reason: Recheck today's complaints, Continuance of care, Re-evaluation by your physician Discharge Instructions: - Discharge Summary Sheet kb - Musculoskeletal Pain kb - Acute Knee Pain, Adult, [id number] kb Forms: - Medication Reconciliation Form kb - Thank You Letter kb - Antibiotic Education kb - Prescription Opioid Use kb - Patient Portal Instructions kb - Leadership Thank You Letter kb Prescriptions: - Prednisone 20 mg Oral Tablet - take 1 tablet ORAL route once daily for 5 days; 5 tablet; Refills: 0, Product kb Selection Permitted Signatures: Angi Comer, STAS-C COFFEE SAMPLER-Uriel Hughes MD MD sp4 Sadaf Garcia RN RN km8 Corrections: (The following items were deleted from the chart) 12/24 21:57 21:55 PMHx: diabetes mellitus; km8 km8
[2023-12-25] MEDS ORDERED: dexAMETHasone 10 MG/ML VIAL ONE (22:01)
[2023-12-25] MEDS ORDERED: HYDROCODONE/APAP 10/325 TAB ONE (22:01)
[2023-12-25 22:47] VITALS: BP 109/88; TEMP 97; O2SAT 97
== END 2023-12-25 22:25 | disposition home or self-care (01) ==
LOC: ER 21:22
DX: M25.561 Pain in right knee (principal)
CPT/HCPCS: 96372; 99284; J1100

== ENCOUNTER 2024-06-06 16:26 | Emergency (ER) | payer OTHER ==
--- OUTSIDE RECORDS SUMMARY | 2024-06-06 16:33 | XMS REPORT | Continuity of Care Document ---
Author Name Unknown Address [address] [facility] [address] [place] [address] [facility] Address [address] [facility] [address] [place] [address] Care Team Providers Care Instrument Assembler Name Role Phone Bird Negro Primary Care Physician [phone] DIANN SADLER Attending Clinician Unavailable TRACY SIDHU Attending Clinician Unavailable АНДРЕЙ WHITLOCK Attending Clinician Unavailable MD DOMONIQUE Attending Clinician Unavailab le LAB90 Attending Clinician Unavailable RASHMI GONZÁLES Attending Clinician Unavailable BRIONNA CEBALLOS Attending Clinician Unava ilable RASHMI SILVER Attending Clinician Unavailable MARK GUNTER Attending Clinician Unavail able KAMI JUNIOR Attending Clinician Unavailable MV, TECH 1 Attending Clinician Unavailable LINNETTE BARNETT Attending Clinician Unavailable ARMAND LEONE Attending Clinician Unavailable PRADEEP VEGA Attending Clinician Unavail able MEEK LUCERO Attending Clinician Unavailable DOLORES MALIK Attending Clinician Unavailable SANDRA LOPEZ Attending Clinician Unavailable PL, TECH 1 Attending Clinician Unavailable ILIANA ANDRADE Attending Clinician Unavai CATHY Gillis Attending Clinician Unavail able MELISSA VILLALPANDO Attending Clinician Unava ilable DULCE LEE Attending Clinician Unavailable KAREN LOPEZ Attending Clinician UnavailMARITO Hernández Attending Clinician Unavailab DENIA Mccall Attending Clinician Unavailable ANTONIO ALEMAN Attending Clinician Unavailable Doctor Unassigned, [place] Attending Clinician Laz dominick Harringtonmisaeljennifer STASDwayne Attending Clinician Payers Payer Name Policy Type Policy Number Effective Date Expirati on Date Source [place] [employer] 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 94 [place] 9 [id number] 2022-09-05 00:00:00 COMMERCIAL NON-CONTRACT GENERIC [id number] 2017-09-05 00:00:00 Problems Condition Name Condition Details Condition [...] adult Disease Active 01-19 00:00: 00 Lexy Landis Externa l 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 01-19 00:00: 00 Lexy Landis Externa l No known active problems No known active problems Disease [facility] Allergies, Adverse Reactions, Alerts Allergy Name Allergy Type Status Severity Reaction(s) Onset Date Inactive Date Treating Clinician Comments Source NO KNOWN ALLERGIE S Drug Class Active [facility] Social History Social Habit Start Date Stop Date Quantity Comments Source [facility] Gender identity Rosa M Oropeza - External Alcoholic beverage intake 2024-04-24 00:00:00 2024-04-24 00:00:00 Lifetime non-drinker (finding) Lexy Oropeza - External Alcohol intake 2023-10-14 00:00:00 2023-10-14 00:00:00 Lifetime non-drinker (finding) Lexy Oropeza - External History of Social function 2023-05-23 00:00:00 2023-05-23 00:00:00 Lexy Oropeza - External Tobacco use and exposure 2023-01-18 00:00:00 2023-01-18 00:00:00 Smokeless tobacco non-user Lexy Oropeza - External Exposure to SARS-CoV-2 (event) 2021-04-17 00:00:00 2021-05-17 12:04:00 Not sure [facility] Sex assigned at 1965 00:00:00 1965 00:00:00 Lexy Oropeza - External Smoking Status Start Date Stop Date Source Never smoked tobacco Lexy Oropeza - External Tobacco smoking consumption unknown [facility] Medications Ordered Medication Name Filled Medication Name Start Date Stop Date Current Medication? Ordering Clinician Indication Dosage Frequency Signature (SIG) Comments Components Source Methylpredn isolone Acetate (Depo-Medro l) [40 mg/mL], 40mg TOTAL - Physician Administere d (J1030) 04-24 17:00: 31 No [id number] 40mg 40 mg, Physician Administer ed, ONCE, 1 dose, On Tue04/24/24 at 1645 Lexy chacon methylPREDN ISolone (Medrol) 4 MG oral Tablet Therapy Pack 04-24 00:00: 00 04-24 00:00 :00 No 1{aline} Take 1 aline by mouth See Admin Instructio ns Take as directed. Lexy chacon LISINOPRIL- HCTZ 20-12.5 MG oral Tablet 04-16 00:00: 00 Yes [id number] 2{tbl} QD Take 2 tablets by mouth daily. Lexy chacon Diclofenac Sodium 1 % apply externally Gel 02-14 00:00: 00 Yes [id number] 9100 1{appli cation} Q.5D Apply 1 Applicatio n topically 2 times daily as needed (pain). Lexy chacon Gabapentin 100 MG oral Capsule 02-14 00:00: 00 Yes [id number] 9100 100mg Q.5D Take 1 capsule (100 mg total) by mouth 2 times daily as needed (pain). Lexy chacon Sildenafil Citrate 100 MG oral Tablet 02-14 00:00: 00 Yes [id number] 100mg QD Take 1 tablet (100 mg total) by mouth daily as needed. Lexy chacon Semaglutide -Weight Management (Wegovy) 0.25 MG/0.5ML subcutaneou s Solution Auto-inject or 02-14 00:00: 00 Yes [id number] 104 .25mg Q1W Inject 0.25 mg into the skin once a week. Lexy chacon Methylpredn isolone Acetate (Depo-Medro l) [40 mg/mL], 40mg TOTAL - Physician Administere d (J1030) 02-13 13:45: 00 02-13 14:19 :25 No [id number] 40mg Lexy chacon prednisoLON E Acetate 1 % ophthalmic Suspension 02-13 00:00: 00 Yes [id number] 1[drp] Q.5D Place 1 drop into both eyes 2 times daily. Lexy chacon Ketoconazol e 2 % apply externally Cream -20 00:00: 00 Yes [id number] APPLY TO AFFECTED AREA OF THE SKIN DAILY FOR 14 DAYS. Lexy Sahni l Gentamicin Sulfate 0.3 % ophthalmic Solution -17 00:00: 00 Yes Lexy chacon Diclofenac Sodium 75 MG oral Tablet Delayed Response - 00:00: 00 02-14 00:00 :00 No [id number] 75mg Q.5D Take 1 tablet (75 mg total) by mouth 2 times daily as needed (pain). Lexy chacon Erythromyci n 5 MG/GM ophthalmic Ointment 01-07 00:00: 00 Yes APPLY 1CM TO AFFECTED EYE NIGHTLY Lexy chacon Atorvastati n Calcium 40 MG oral Tablet -18 00:00: 00 Yes [id number] 40mg Take 1 tablet (40 mg total) by mouth at bedtime. Lexy chacon Bilateral Injection: Methylpredn isolone Acetate (Depo-Medro l) 40 mg/ml, 80mg - Physician Administere d (J1030) 10-14 18:45: 00 10-14 18:38 :00 No [id number] 80mg Lexy chacon Triamcinolo ne Acetonide 0.1 % apply externally Cream 10-14 00:00: 00 Yes [id number] Apply to affected area twice daily. Lexy chacon Fluocinonid e 0.05 % apply externally Ointment 10-14 00:00: 00 Yes [id number] Apply to affected areas twice daily for three weeks.. Lexy chacon predniSONE (DELTASONE) 10 MG oral tablet 10-14 00:00: 00 02-13 00:00 :00 No [id number] 10mg Take 1 tablet (10 mg total) by mouth daily. Lexy Landis Externa oswaldo FLUTICASONE PROPIONATE, NASAL, (Flonase Allergy Relief) 50 MCG/ACT nasal Suspension 08 00:00: 00 Yes [id number] 50ug Q.5D Use 1 spray (50 mcg total) in each nostril 2 times daily. Lexy chacon Ketoconazol e 2 % apply externally Cream 10-12 00:00: 00 Yes [id number] Apply to skin daily for 14 days. Lexy chacon LISINOPRIL- HCTZ 20-12.5 MG oral Tablet 10-07 00:00: 00 Yes [id number] 2{tbl} Take 2 tablets by mouth daily. Lexy chacon Sildenafil Citrate 100 MG oral Tablet 10-07 00:00: 00 Yes [id number] 100mg QD Take 1 tablet (100 mg total) by mouth daily as needed. Lexy chacon TESTOSTERON E CYPIONATE IM 09-19 16:33: 46 09-19 00:00 :00 No Inject into the muscle Lexy chacon Atorvastati n Calcium 40 MG oral Tablet 09-19 00:00: 00 Yes [id number] 20mg Take 0.5 tablets (20 mg total) by mouth at bedtime. Lexy chacon Carvedilol 6.25 MG oral Tablet 09-13 00:00: 00 Yes [id number] 6.25mg Take 1 tablet (6.25 mg total) by mouth in the morning and 1 tablet (6.25 mg total) in the evening. Take with meals. Lexy chacon TESTOSTERON E CYPIONATE IM 2022-09 14:01: 56 Yes Inject into the muscle Lexy chacon methylPREDN ISolone (Medrol) 4 MG oral Tablet Therapy Pack 2022-09 00:00: 00 Yes 1{aline} Take 1 aline by mouth See Admin Instructio ns Take as directed. Lexy chacon Sildenafil Citrate 100 MG oral Tablet 2022-09 00:00: 00 Yes [id number] 100mg QD Take 1 tablet (100 mg total) by mouth daily as needed. Lexy chacon Atorvastati n Calcium 40 MG oral Tablet 2022-09 2-18 00:00: 00 Yes [id number] 40mg Take 1 tablet (40 mg total) by mouth at bedtime. Lexy chacon Meclizine HCl 12.5 MG oral Tablet 2022-0924 00:00: 00 Yes [id number] 12.5mg QD Take 1 tablet (12.5 mg total) by mouth daily as needed for dizziness (vertigo). Lexy chacon Bilateral Injection: Methylpredn isolone Acetate (Depo-Medro l) 40 mg/ml, 80mg - Physician Administere d (J1030) 2022-09 16:30: 00 06-10 16:45 :00 No [id number] 80mg Lexy chacon TESTOSTERON E CYPIONATE IM 2022-09 11:13: 17 Yes Inject into the muscle Lexy chacon Carvedilol (Coreg) 6.25 MG oral Tablet 05-26 00:00: 00 Yes [id number] 6.25mg Take 1 tablet (6.25 mg total) by mouth in the morning and 1 tablet (6.25 mg total) in the evening. Take with meals. Lexy chacon Diclofenac Sodium 1 % apply externally Gel 05-26 00:00: 00 02-14 00:00 :00 No [id number] 1{appli cation} Q.5D Apply 1 Applicatio n topically 2 times daily as needed (pain). Lexy chacon Tramadol HCl (ULTRAM) 50 MG oral Tablet 05-26 00:00: 00 09-19 00:00 :00 No [id number] 50mg Q.5D Take 1 tablet (50 mg total) by mouth 2 times daily as needed for pain. Lexy chacon predniSONE (DELTASONE) 10 MG oral tablet 05-26 00:00: 00 09-02 00:00 :00 No [id number] 10mg Take 1 tablet (10 mg total) by mouth daily. Lexy chacon Diclofenac Sodium 75 MG oral Tablet Delayed Response 05-26 00:00: 00 05-26 00:00 :00 No [id number] 75mg QD Take 1 tablet (75 mg total) by mouth daily as needed. Lexy chacon TESTOSTERON E CYPIONATE IM 05-23 17:47: 54 Yes Inject into the muscle Lexy chacon Sildenafil Citrate 100 MG oral Tablet 05-19 00:00: 00 Yes [id number] 100mg QD Take 1 tablet (100 mg total) by mouth daily as needed. Lexy chacon Ketoconazol e 2 % apply externally Cream 05-19 00:00: 00 Yes [id number] Apply to skin daily for 14 days. Lexy chacon Diclofenac Sodium 75 MG oral Tablet Delayed Response 05-19 00:00: 00 05-26 00:00 :00 No [id number] 75mg Q.5D Take 1 tablet (75 mg total) by mouth 2 times daily as needed. Lexy chacon Benzonatate 100 MG oral Capsule 05-12 00:00: 00 Yes [id number] 100mg [id number] 3D Take 1 capsule (100 mg total) by mouth 3 times daily as needed for cough. Lexy chacon Azithromyci n 250 MG oral Tablet 05-12 00:00: 00 05-18 04:59 :00 No [id number] Take 2 tablets by mouth on day 1 then 1 tablet by mouth daily for 4 days thereafter .. Lexy chacon Sildenafil Citrate 50 MG oral Tablet 04-05 00:00: 00 Yes [id number] 50mg QD Take 1 tablet (50 mg total) by mouth daily as needed Lexy chacon LISINOPRIL- HCTZ 20-12.5 MG oral Tablet 04-05 00:00: 00 Yes [id number] 2{tbl} Take 2 tablets by mouth daily Lexy chacon Carvedilol (Coreg) 3.125 MG oral Tablet 04-05 00:00: 00 05-26 00:00 :00 No [id number] 3.125mg Take 1 tablet (3.125 mg total) by mouth in the morning and 1 tablet (3.125 mg total) in the evening. Take with meals. Lexy Porrasa oswaldo TESTOSTERON E CYPIONATE IM 04-01 09:04: 24 Yes Inject into the muscle Lexy Vacaglutmeme -Mg t Management 0.25 MG/0.5ML Subcutaneou s Solution Auto-inject or 04-01 00:00: 00 Yes [id number] 104 .25mg Inject 0.25 mg into the skin once a week Lexy chacon Ketoconazol e 2 % apply externally Cream 04-01 00:00: 00 05-19 00:00 :00 No [id number] Apply to skin daily for 14 days [...] MG oral Tablet 02-02 00:00: 00 Yes [id number] 50mg QD Take 1 tablet (50 mg total) by mouth daily as needed Lexy chacon Metformin HCl 500 MG oral Tablet 02-02 00:00: 00 04-01 00:00 :00 No [id number] 500mg Take 1 tablet (500 mg total) by mouth daily (with breakfast) Lexy Porrasa oswaldo TESTOSTERON E CYPIONATE IM 02-01 14:17: 15 Yes Inject into the muscle Lexy chacon Sildenafil Citrate 50 MG oral Tablet 02-01 14:17: 15 Yes 50mg QD Take 1 tablet (50 mg total) by mouth daily as needed Lexy chacon Erythromyci n 5 MG/GM ophthalmic Ointment 02-01 00:00: 00 Yes [id number] 1cm Apply 1 cm to eye nightly Lexy chacon [place]-3 Fatty Acids (Fish Oil) 1000 MG oral Capsule 01-21 00:00: 00 05-26 00:00 :00 No [id number] 1000mg Take 1 capsule (1,000 mg total) [...] MG oral Tablet 01-19 00:00: 00 Yes [id number] 2{tbl} Take 2 tablets by mouth daily Lexy chacon Carvedilol (Coreg) 3.125 MG oral Tablet 01-19 00:00: 00 Yes [id number] 3.125mg Take 1 tablet (3.125 mg total) [...] lisinopril 20 mg-hydrochl orothiazide 25 mg tablet 09-15 00:00: 00 No 2mg Dose Unknown 09-15 00:00: 00 No lisinopril 20 mg-hydrochl orothiazide 25 mg tablet 09-15 00:00: 00 No 2mg Dose Unknown 09-15 00:00: 00 No lisinopril 20 mg-hydrochl orothiazide 25 mg tablet 09-15 00:00: 00 No 2mg Dose Unknown 09-15 00:00: 00 No lisinopril 20 mg-hydrochl orothiazide 25 mg tablet 09-15 00:00: 00 No 2mg Dose Unknown 09-15 00:00: 00 No dexamethaso ne (DECADRON PHOSPHATE) injection 10 mg 05-17 18:30: 00 05-17 17:32 :00 No 10mg 10 mg, Oral, ONCE, 1 dose, 05/17/21 at 1330, Routine [facility] ketorolac (TORADOL) injection 30 mg 05-17 18:30: 00 05-17 17:31 :00 No 30mg 30 mg, Intramuscu lar, ONCE, 1 dose, 05/17/21 at 1330, CONNIE
Fa culty member approving Restricted medication : DWAYNE [place] [facility] cyclobenzap rine 10 mg tablet 05-17 00:00: 00 Yes [id number] 10mg Take 1 tablet by mouth 3 (three) times daily as needed for Muscle Spasms. [facility] ibuprofen 800 mg tablet 05-17 00:00: 00 Yes [id number] 800mg Take 1 tablet by mouth every 6 (six) hours as needed for Pain (scale 4-6). [facility] lisinopril 20 mg-hydrochl orothiazide 25 mg tablet 0 - 00:00: 00 No 2mg Viagra 50 mg tablet 0 02-10 00:00: 00 No 1mg Dose Unknown 0 6- 00:00: 00 No lisinopril 20 mg-hydrochl orothiazide 25 mg tablet 2020-0 - 00:00: 00 No 2mg Viagra 50 mg tablet 0 02-10 00:00: 00 No 1mg Dose Unknown 0 02-10 00:00: 00 No lisinopril 20 mg-hydrochl orothiazide 25 mg tablet 0 02-10 00:00: 00 No 2mg Viagra 50 mg tablet 2020-0 02-10 00:00: 00 No 1mg Dose Unknown 2020-0 02-10 00:00: 00 No lisinopril 20 mg-hydrochl orothiazide 25 mg tablet 0 02-10 00:00: 00 No 2mg Viagra 50 mg tablet 0 02-10 00:00: 00 No 1mg Dose Unknown 2020-0 6- 00:00: 00 No Dose Unknown 2020-0 4-07 00:00: 00 No Dose Unknown 2020-0 4-07 00:00: 00 No Dose Unknown 2020-0 4-07 00:00: 00 No Dose Unknown 2020-0 4-07 00:00: 00 No Dose Unknown 2020-0 4-07 00:00: 00 No Dose Unknown 2020-0 4-07 00:00: 00 No Dose Unknown 2020-0 4-07 00:00: 00 No Dose Unknown 2020-0 4-07 00:00: 00 No Dose Unknown 2020-0 1-06 00:00: 00 No gemfibrozil 600 mg tablet 2020-0 1-06 00:00: 00 No 1mg Dose Unknown 2020-0 1-06 00:00: 00 No Dose Unknown 2020-0 1-06 00:00: 00 No Dose Unknown 2020-0 1-06 00:00: 00 No gemfibrozil 600 mg tablet 0 - 00:00: 00 No 1mg Dose Unknown 0 -06 00:00: 00 No Dose Unknown 0 - 00:00: 00 No Dose Unknown 0 - 00:00: 00 No gemfibrozil 600 mg tablet 0 - 00:00: 00 No 1mg Dose Unknown 0 - 00:00: 00 No Dose Unknown 0 - 00:00: 00 No Dose Unknown 0 - 00:00: 00 No gemfibrozil 600 mg tablet 0 - 00:00: 00 No 1mg Dose Unknown 0 - 00:00: 00 No Dose Unknown - 00:00: 00 No Dose Unknown 2019-09 0-02 00:00: 00 No Dose Unknown 2019-09 0-02 00:00: 00 No Dose Unknown 2019-09 0- 00:00: 00 No Dose Unknown 2019-09 0- 00:00: 00 No Dose Unknown 2019-09 0- 00:00: 00 No Dose Unknown 2019-09 0-02 00:00: 00 No Dose Unknown 2019-09 0-02 00:00: 00 No Dose Unknown 2019-09 0-02 00:00: 00 No Dose Unknown 2019-09 0-02 00:00: 00 No Dose Unknown 2019-09 0-02 00:00: 00 No Dose Unknown 2019-09 0-02 00:00: 00 No Dose Unknown 2019-09 0-02 00:00: 00 No lisinopril 20 mg-hydrochl orothiazide 12.5 mg tablet 0 6-16 00:00: 00 No 2mg ibuprofen 800 mg tablet 0 6-16 00:00: 00 No 1mg Dose Unknown 0 6-16 00:00: 00 No lisinopril 20 mg-hydrochl orothiazide 12.5 mg tablet 0 -16 00:00: 00 No 2mg ibuprofen 800 mg tablet 0 6-16 00:00: 00 No 1mg Dose Unknown 0 6-16 00:00: 00 No lisinopril 20 mg-hydrochl orothiazide 12.5 mg tablet 0 6-16 00:00: 00 No 2mg ibuprofen 800 mg tablet 0 16 00:00: 00 No 1mg Dose Unknown 0 16 00:00: 00 No lisinopril 20 mg-hydrochl orothiazide 12.5 mg tablet 0 16 00:00: 00 No 2mg ibuprofen 800 mg tablet 16 00:00: 00 No 1mg Dose Unknown 16 00:00: 00 No Dose Unknown 0 2-14 00:00: 00 No Dose Unknown 14 00:00: 00 No Dose Unknown 14 00:00: 00 No Dose Unknown 14 00:00: 00 No lisinopril 20 mg-hydrochl orothiazide 12.5 mg tablet -10 00:00: 00 No 2mg nitroglycer in 0.4 mg sublingual tablet 2 00:00: 00 No 1mg lisinopril 20 mg-hydrochl orothiazide 12.5 mg tablet 10-15 00:00: 00 No 2mg lovastatin 40 mg tablet 2 00:00: 00 No 1mg nitroglycer in 0.4 mg sublingual tablet 2-10 00:00: 00 No 1mg lovastatin 40 mg tablet 2-10 00:00: 00 No 1mg lisinopril 20 mg-hydrochl orothiazide 12.5 mg tablet 210 00:00: 00 No 2mg nitroglycer in 0.4 mg sublingual tablet 2-10 00:00: 00 No 1mg lovastatin 40 mg tablet 2-10 00:00: 00 No 1mg lisinopril 20 mg-hydrochl orothiazide 12.5 mg tablet 2-10 00:00: 00 No 2mg nitroglycer in 0.4 mg sublingual tablet 2-10 00:00: 00 No 1mg lovastatin 40 mg tablet 210 00:00: 00 No 1mg lovastatin 40 mg tablet 2017-09 2-14 00:00: 00 No 1mg lovastatin 40 mg tablet 2017-09 2-14 00:00: 00 No 1mg lovastatin 40 mg tablet 2018-1 2-14 00:00: 00 No 1mg lovastatin 40 mg tablet 1 2-14 00:00: 00 No 1mg lisinopril 20 mg-hydrochl orothiazide 12.5 mg tablet 1 2-12 00:00: 00 No 2mg lisinopril 20 mg-hydrochl orothiazide 12.5 mg tablet 1 2-12 00:00: 00 No 2mg lisinopril 20 mg-hydrochl orothiazide 12.5 mg tablet 1 2-12 00:00: 00 No 2mg lisinopril 20 mg-hydrochl orothiazide 12.5 mg tablet 1 2-12 00:00: 00 No 2mg lisinopril 20 mg-hydrochl orothiazide 12.5 mg tablet 0 -16 00:00: 00 No 2mg simvastatin 20 mg tablet 0 516 00:00: 00 No 1mg lisinopril 20 mg-hydrochl orothiazide 12.5 mg tablet 0 516 00:00: 00 No 2mg simvastatin 20 mg tablet 0 516 00:00: 00 No 1mg lisinopril 20 mg-hydrochl orothiazide 12.5 mg tablet 0 516 00:00: 00 No 2mg simvastatin 20 mg tablet 0 516 00:00: 00 No 1mg lisinopril 20 mg-hydrochl orothiazide 12.5 mg tablet 0 516 00:00: 00 No 2mg simvastatin 20 mg tablet 0 16 00:00: 00 No 1mg lisinopril 20 mg-hydrochl orothiazide 12.5 mg tablet 0 16 00:00: 00 No 2mg lisinopril 20 mg-hydrochl orothiazide 12.5 mg tablet 0 -16 00:00: 00 No 2mg lisinopril 20 mg-hydrochl orothiazide 12.5 mg tablet 0 16 00:00: 00 No 2mg lisinopril 20 mg-hydrochl orothiazide 12.5 mg tablet 0 -16 00:00: 00 No 2mg lovastatin 20 mg tablet 0 2-14 00:00: 00 No 1mg lovastatin 20 mg tablet 10-19 00:00: 00 No 1mg lovastatin 20 mg tablet 10-19 00:00: 00 No 1mg lovastatin 20 mg tablet 10-19 00:00: 00 No 1mg ondansetron 4 mg disintegrat ing tablet 10-14 00:00: 00 Yes 4mg Take 1 tablet by mouth every 8 (eight) hours as needed for Nausea and Vomiting (N/V). [facility] benzonatate (TESSALON PERLES) 100 mg capsule 10-14 00:00: 00 Yes 100mg Take 1 capsule by mouth every 8 (eight) hours as needed for Cough. [facility] lisinopril 20 mg-hydrochl orothiazide 12.5 mg tablet [...] lisinopril 20 mg-hydrochl orothiazide 12.5 mg tablet [id number] 6-16 00:00: 00 No 2mg lisinopril 20 mg-hydrochl orothiazide 12.5 mg tablet 0 2-03 00:00: 00 No 2mg lisinopril 20 mg-hydrochl orothiazide 12.5 mg tablet 0 2- 00:00: 00 No 2mg lisinopril 20 mg-hydrochl orothiazide 12.5 mg tablet 0 2-03 00:00: 00 No 2mg lisinopril 20 mg-hydrochl orothiazide 12.5 mg tablet 0 2 00:00: 00 No 2mg nitroglycer in 0.4 mg sublingual tablet 0 7 00:00: 00 No 1mg nitroglycer in 0.4 mg sublingual tablet 0 03-11 00:00: 00 No 1mg nitroglycer in 0.4 mg sublingual tablet 0 03-11 00:00: 00 No 1mg nitroglycer in 0.4 mg sublingual tablet 0 03-11 00:00: 00 No 1mg lisinopril 20 mg-hydrochl orothiazide 12.5 mg tablet 0 7 00:00: 00 No 2mg lisinopril 20 mg-hydrochl orothiazide 12.5 mg tablet 0 7 00:00: 00 No 2mg lisinopril 20 mg-hydrochl orothiazide 12.5 mg tablet 0 03-07 00:00: 00 No 2mg lisinopril 20 mg-hydrochl orothiazide 12.5 mg tablet 0 03-07 00:00: 00 No 2mg lisinopril 20 mg-hydrochl orothiazide 12.5 mg tablet 0 11-23 00:00: 00 No 2mg lisinopril 20 mg-hydrochl orothiazide 12.5 mg tablet 0 11-23 00:00: 00 No 2mg lisinopril 20 mg-hydrochl orothiazide 12.5 mg tablet 0 11-23 00:00: 00 No 2mg lisinopril 20 mg-hydrochl orothiazide 12.5 mg tablet 0 11-23 00:00: 00 No 2mg Catapres 0.1 [...] months and up 2023-04-23 00:00:00 Completed Lexy Seybold - External Hep A/ Hep B Combo 2023-04-23 00:00:00 Completed Lexy Burgosybold - External Pneumococcal Vaccine, Conjugate 20 2023-04-23 00:00:00 Completed Lexy Burgosybold - External Influenza Virus Vaccine, No Preserv, age 6 months and up Unknown Completed Lexy Seybold - External Hep A/ Hep B Combo Unknown Completed Elizabeth elsesameer Burgosybold - External Pneumococcal Vaccine, Conjugate 20 Unknown Completed Lexy Seybold - External Hep A/ Hep B Combo Unknown Completed Elizabeth elsey Seybold - External Tdap- (Boostrix, Adacel) Unknown Completed Lexy Burgosybold - External Shingles IM (Shingrix) Unknown Completed Lexy Seybold - External Influenza Virus Vaccine, No Preserv, age 6 months and up Unknown Completed Lexy Seybold - External Hep A/ Hep B Combo Unknown Completed Elizabeth elsesameer Seybold - External Pneumococcal Vaccine, Conjugate 20 Unknown Completed Lexy Seybold - External Hep A/ Hep B Combo Unknown Completed Elizabeth elsesameer Seybold - External Tdap- (Boostrix, Adacel) Unknown [...] A/ Hep B Combo Unknown Completed Elizabeth elsey Seybold - External Tdap- (Boostrix, Adacel) [...] A/ Hep B Combo Unknown Completed Elizabeth elsey Seybold - External Tdap- (Boostrix, Adacel) [...] A/ Hep B Combo Unknown Completed Elizabeth gordon Seybold - External Pneumococcal Vaccine, Conjugate 20 Unknown Completed Lexy Seybold - External Hep A/ Hep B Combo Unknown Completed Elizabeth gordon Seybold - External Tdap- (Boostrix, Adacel) Unknown Completed Lexy Burgosybold - External Shingles IM (Shingrix) Unknown Completed Lexy Burgosybold - External Influenza Virus Vaccine, No Preserv, age 6 months and up Unknown Completed Lexy Seybold - External Hep A/ Hep B Combo Unknown Completed Elizabeth gordon Seybold - External Pneumococcal Vaccine, Conjugate 20 Unknown Completed Lexy Seybold - External Hep A/ Hep B Combo Unknown Completed Elizabeth gordon Seybold - External Tdap- (Boostrix, Adacel) Unknown Completed Lexy Seybold - External Shingles IM (Shingrix) Unknown Completed Lexy Burgosybold - External Influenza Virus Vaccine, No Preserv, age 6 months and up Unknown Completed Lexy Seybold - External Hep A/ Hep B Combo Unknown Completed Elizabeth gordon Seybold - External Pneumococcal Vaccine, Conjugate 20 Unknown Completed Lexy Seybold - External Hep A/ Hep B Combo Unknown Completed Elizabeth gordon Seybold - External Tdap- (Boostrix, Adacel) Unknown Completed Lexy Burgosybold - External Shingles IM (Shingrix) Unknown Completed Lexy Burgosybold - External Vital Signs Vital Name Observation Time Observation Value Comments S ource Systolic blood pressure 2024-04-24 20:59:00 155 mm[Hg] Lexy Garciao ld - External Diastolic blood pressure 2024-04-24 20:59:00 84 mm[Hg] Lexy Garciao ld - External Heart rate 2024-04-24 20:59:00 66 /min Jong y Seybold - External Body height 2024-04-24 20:59:00 170.2 cm Rosa M jerry Seybold - External Body weight 2024-04-24 20:59:00 127.37 kg Rosa M edwards Seybold - External BMI 2024-04-24 20:59:00 43.98 kg/m2 Rosa M ey Seybold - External Systolic blood pressure 2024-02-15 21:32:00 124 mm[Hg] Lexy Seybo ld - External Diastolic blood pressure 2024-02-15 21:32:00 78 mm[Hg] Lexy Seybo ld - External Heart rate 2024-02-15 21:19:00 92 /min Kelse y Seybold - External Body temperature 2024-02-15 21:19:00 36.56 Mulu Lexy Seybold - External Respiratory rate 2024-02-15 21:19:00 19 /min Lexy Seybold - External Body height 2024-02-15 21:19:00 170.2 cm Rosa M ey Seybold - External Body weight 2024-02-15 21:19:00 126.1 kg Rosa M ey Seybold - External BMI 2024-02-15 21:19:00 43.54 kg/m2 Rosa M ey Seybold - External Oxygen saturation in Arterial blood by Pulse oximetry 2024-02-15 21:19:00 97 /min Lexy Seybo ld - External Systolic blood pressure 2024-02-14 13:08:00 176 mm[Hg] Lexy Seybo ld - External Diastolic blood pressure 2024-02-14 13:08:00 93 mm[Hg] Lexy Seybo ld - External Heart rate 2024-02-14 13:08:00 63 /min Jongse y Seybold - External Body height 2024-02-14 13:08:00 170.2 cm Rosa M ey Seybold - External Body weight 2024-02-14 13:08:00 126.735 kg Rosa M ey Seybold - External BMI 2024-02-14 13:08:00 43.76 kg/m2 Rosa M ey Seybold - External Body height 2023-10-14 17:01:00 170.2 cm Rosa M ey Seybold - External Body weight 2023-10-14 17:01:00 128.822 kg Rosa M ey Seybold - External BMI 2023-10-14 17:01:00 44.48 kg/m2 Rosa M ey Seybold - External Systolic blood pressure 2023-09-19 22:29:00 130 mm[Hg] Lexy Seybo ld - External Diastolic blood pressure 2023-09-19 22:29:00 80 mm[Hg] Lexy Seybo ld - External Heart rate 2023-09-19 22:10:00 77 /min Jongse y Seybold - External Body temperature 2023-09-19 22:10:00 36.67 Mulu Lexy Seybold - External Respiratory rate 2023-09-19 22:10:00 18 /min Lexy Seybold - External Body height 2023-09-19 22:10:00 170.2 cm Rosa M ey Seybold - External Body weight 2023-09-19 22:10:00 131.543 kg Rosa M ey Seybold - External BMI 2023-09-19 22:10:00 45.42 kg/m2 Rosa M ey Seybold - External Oxygen saturation in Arterial blood by Pulse oximetry 2023-09-19 22:10:00 95 /min Lexy Burgosybo ld - External Respiratory rate 2023-09-02 19:59:00 18 /min Lexy Seybold - External Body height 2023-09-02 19:59:00 170.2 [...] External Body height 2023-05-26 14:45:00 170.2 cm Orsa M ey Seybold - External Body weight [...] External Heart rate 2023-05-19 20:26:00 84 /min Jongse y Seybold - External Body temperature 2023-05-19 [...] by Pulse oximetry 2023-05-19 20:26:00 99 /min Lexy Seybo ld - External Systolic blood pressure 2023-04-01 14:02:00 132 mm[Hg] Lexy Seybo ld - External Diastolic blood pressure 2023-04-01 14:02:00 84 mm[Hg] Lexy Seybo ld - External Heart rate 2023-04-01 14:02:00 79 /min Jongse y Seybold - External Body temperature 2023-04-01 [...] Body temperature 2023-01-19 20:10:00 36.5 Mulu Lexy Seybold - External Respiratory rate 2023-01-19 20:10:00 19 /min Lexy Seybold - External Body height 2023-01-19 20:10:00 170.2 cm Rosa M ey Seybold - External Body weight 2023-01-19 20:10:00 127.914 kg Rosa M ey Seybold - External BMI 2023-01-19 20:10:00 44.17 kg/m2 Rosa M ey Seybold - External Systolic blood pressure 2021-05-17 17:07:58 138 mm[Hg] [facility] Diastolic blood pressure 2021-05-17 17:07:58 94 mm[Hg] [facility] Heart rate 2021-05-17 17:07:58 75 /min [facility] Body temperature 2021-05-17 17:07:58 36.94 Mulu [facility] Respiratory rate 2021-05-17 17:07:58 17 /min [facility] Body height 2021-05-17 17:05:00 170.2 cm [facility] Body weight 2021-05-17 17:05:00 117.935 kg [facility] BMI 2021-05-17 17:05:00 40.72 kg/m2 [facility] Oxygen saturation in Arterial blood by Pulse oximetry 2021-05-17 17:05:00 96 /min [facility] BP Systolic 2022-07-06 13:15:00 162 mm[Hg] BP [...] SPINE 3 VW 2021-05-17 17:50:14 Russ [place] [facility] URINALYSIS 2021-05-17 17:37:00 Dwayne [place] [facility] CONSENT/REFUSAL FOR DIAGNOSIS AND TREATMENT 2021-05-17 16:46:48 Doctor Unassigned, [place] [facility] Ekg 2018-08-16 00:00:00 49099 Ecg Routine Ecg W/least 12 Lds W/i r 2017-10-11 00:00:00 Plan of Care Planned Activity Planned Date Details Comments Source Goal Plan of Care Note [code = 59142-5] Goal Plan of Care Note [code = 59935-1] Goal Plan of Care Note [code = 63668-8] Goal Plan of Care Note [code = 55206-8] Goal Plan of Care Note [code = 95628-2] Goal Plan of Care Note [code = 05796-2] Goal Plan of Care Note [code = 09870-5] Goal Plan of Care Note [code = 46806-6] Goal Plan of Care Note [code = 07043-9] Goal Plan of Care Note [code = 09456-8] Goal Plan of Care Note [code = 68460-8] Goal Plan of Care Note [code = 97126-4] Goal Plan of Care Note [code = 48469-0] Goal Plan of Care Note [code = 04673-3] Goal Plan of Care Note [code = 01965-0] Goal Plan of Care Note [code = 83664-0] Goal Plan of Care Note [code = 85330-8] Goal Plan of Care Note [code = 35077-3] Goal Plan of Care Note [code = 37880-2] Goal Plan of Care Note [code = 72587-1] Goal Plan of Care Note [code = 57120-8] Goal Plan of Care Note [code = 37940-2] Goal Plan of Care Note [code = 24633-8] Goal Plan of Care Note [code = 56552-6] Goal Plan of Care Note [code = 19700-1] Goal Plan of Care Note [code = 98188-3] Goal Plan of Care Note [code = 92997-3] Goal Plan of Care Note [code = 53464-4] Goal Plan of Care Note [code = 39252-8] Goal Plan of Care Note [code = 03772-8] Goal Plan of Care Note [code = 73664-4] Goal Plan of Care Note [code = 81170-3] Goal Plan of Care Note [code = 96805-1] Goal Plan of Care Note [code = 50628-1] Goal Plan of Care Note [code = 13799-8] Goal Plan of Care Note [code = 96203-1] Goal Plan of Care Note [code = 70408-7] Goal Plan of Care Note [code = 84244-5] Goal Plan of Care Note [code = 91438-6] Goal Plan of Care Note [code = 50221-3] Goal Plan of Care Note [code = 01812-5] Goal Plan of Care Note [code = 06655-6] Goal Plan of Care Note [code = 58684-3] Goal Plan of Care Note [code = 64053-0] Goal Plan of Care Note [code = 27579-1] Goal Plan of Care Note [code = 64327-3] Goal Plan of Care Note [code = 51700-1] Goal Plan of Care Note [code = 65161-8] Goal Plan of Care Note [code = 69640-6] Goal Plan of Care Note [code = 35092-3] Goal Plan of Care Note [code = 04612-2] Goal Plan of Care Note [code = 84966-5] Goal Plan of Care Note [code = 44454-2] Goal Plan of Care Note [code = 64099-1] Goal Plan of Care Note [code = 87786-7] Goal Plan of Care Note [code = 43122-9] Goal Plan of Care Note [code = 44188-2] Goal Plan of Care Note [code = 23081-5] Goal Plan of Care Note [code = 89581-5] Goal Plan of Care Note [code = 63302-7] Goal Plan of Care Note [code = 05868-8] Goal Plan of Care Note [code = 70726-5] Goal Plan of Care Note [code = 03452-3] Goal Plan of Care Note [code = 97465-6] Goal Plan of Care Note [code = 68931-5] Goal Plan of Care Note [code = 51075-2] Goal Plan of Care Note [code = 53105-9] Goal Plan of Care Note [code = 96920-2] Goal Plan of Care Note [code = 24666-5] Goal Plan of Care Note [code = 09160-2] Goal Plan of Care Note [code = 01375-0] Goal Plan of Care Note [code = 72959-2] Goal Plan of Care Note [code = 73957-2] Goal Plan of Care Note [code = 53413-6] Goal Plan of Care Note [code = 61397-4] Goal Plan of Care Note [code = 11499-7] Goal Plan of Care Note [code = 82881-6] Goal Plan of Care Note [code = 30326-9] Goal Plan of Care Note [code = 96992-7] Goal Plan of Care Note [code = 33501-2] Goal Plan of Care Note [code = 08486-0] Goal Plan of Care Note [code = 83174-4] Goal Plan of Care Note [code = 50341-9] Goal Plan of Care Note [code = 77166-2] Goal Plan of Care Note [code = 68725-5] Goal Plan of Care Note [code = 10929-1] Goal Plan of Care Note [code = 98260-1] Goal Plan of Care Note [code = 40042-6] Goal Plan of Care Note [code = 29899-2] Goal Plan of Care Note [code = 26784-7] Goal Plan of Care Note [code = 03026-2] Goal Plan of Care Note [code = 52787-1] Goal Plan of Care Note [code = 18465-7] Encounters Start Date/Time End Date/Time Encounter Type Admission Type Attending [facility] Facility Care Department Encounter ID Source 2024-06-06 00:00:00 2024-06-06 00:00:00 Outpatient VIKTORIYA DIANN STAHL [id number] [facility] 2024-06-06 00:00:00 2024-06-06 00:00:00 Outpatient VIKTORIYA DIANN STAHL [id number] [facility]24-06-01 00:00:00 2024-06-01 00:00:00 Outpatient VIKTORIYA DIANN STAHL [id number] [facility] 2024-06-01 00:00:00 2024-06-01 00:00:00 Outpatient RMZAKathia DIANN STAHL [id number] [facility] 2024-05-01 00:00:00 2024-05-01 00:00:00 Outpatient LEXY STAHL [id number] [facility] 2024-04-26 00:00:00 2024-04-26 00:00:00 Outpatient LEXY STAHL [id number] [facility] 2024-04-24 16:00:00 2024-04-24 16:00:00 Outpatient TRACY SIDHU [id number] [facility] 2024-04-12 00:00:00 2024-04-12 00:00:00 Outpatient PREZAKathia DIANN STAHL [id number] [facility] 2024-04-12 00:00:00 2024-04-12 00:00:00 Outpatient PREZAKathia DIANN STAHL [id number] [facility] 2024-03-30 16:15:00 2024-03-30 16:15:00 Outpatient PREZAKathia DIANN STAHL [id number] [facility] 2024-03-09 14:30:00 2024-03-09 14:30:00 Outpatient АНДРЕЙ WHITLOCK [id number] Lexy Seybold 2024-02-23 00:00:00 2024-02-23 00:00:00 Outpatient LEXY STAHL [id number] Lexy Seybold 2024-02-23 00:00:00 2024-02-23 00:00:00 Outpatient PREZASDIANN LEXY STAHL [id number] Lexy Sey[facility] 2024-02-22 00:00:00 2024-02-22 00:00:00 Outpatient MD LEXY SILVEIRA [id number] [facility] 2024-02-21 00:00:00 2024-02-21 00:00:00 Outpatient PREZADIANN Bae LEXY STAHL [id number] [facility] 2024-02-21 00:00:00 2024-02-21 00:00:00 Outpatient LEXY SATHL [id number] [facility] 2024-02-16 00:00:00 2024-02-16 00:00:00 Outpatient LEXY STAHL [id number] [facility] 2024-02-16 00:00:00 2024-02-16 00:00:00 Outpatient PREZAS, DIANN LEXY STAHL [id number] Lexy Seybold 2024-02-16 00:00:00 2024-02-16 00:00:00 Outpatient TRACY SIDHU [id number] [facility] 2024-02-15 16:55:00 2024-02-15 16:55:00 Outpatient LAB90 LEXY STAHL [id number] Lexy Seybold 2024-02-15 16:30:00 2024-02-15 16:30:00 Outpatient PREZADIANN Bae LEXY STAHL [id number] Lexy Sey[facility] 2024-02-15 00:00:00 2024-02-15 00:00:00 Outpatient LEXY STAHL [id number] Lexy Seybold 2024-02-14 13:40:00 2024-02-14 13:40:00 Outpatient RASHMI GONZÁLES [id number] [facility] 2024-02-14 08:20:2024-02-14 08:20:00 Outpatient TRACY SIDHU LEXY STAHL [id number] [facility]y [facility] 2024-02-03 14:30:00 2024-02-03 14:30:00 Outpatient АНДРЕЙ WHITLOCK LEXY STAHL [id number] Lexy Seybold 2024-01-23 00:00:00 2024-01-23 00:00:00 Outpatient PREZAS, DIANN LEXY STAHL [id number] Lexy Seybold 2024-01-13 00:00:00 2024-01-13 00:00:00 Outpatient PREZAS, DIANN LEXY STAHL [id number] Lexy Seybold 2024-01-12 00:00:00 2024-01-12 00:00:00 Outpatient PREZAS, DIANN LEXY STAHL [id number] Lexy Seybold 2023-12-15 14:45:00 2023-12-15 14:45:00 Outpatient CEBALLOSBRIONNA ORTEZ LEXY STAHL [id number] [facility] 2023-12-08 00:00:00 2023-12-08 00:00:00 Outpatient LEXY STAHL [id number] Lexy Seybold 2023-12-08 00:00:00 2023-12-08 00:00:00 Outpatient PREZAS, DIANN LEXY STAHL [id number] [facility] 2023-12-08 00:00:00 2023-12-08 00:00:00 Outpatient PREZAS, DIANN LEXY STAHL [id number] Lexy [facility]bold 2023-11-24 00:00:00 2023-11-24 00:00:00 Outpatient PREZAS, DIANN STAHL [id number] [facility]y [facility] 2023-11-19 00:00:00 2023-11-19 00:00:00 Outpatient PREZAS, DIANN STAHL [id number] Lexy Seybold 2023-11-17 13:45:00 2023-11-17 13:45:00 Outpatient RASHMI SILVER [id number] [facility] 2023-11-02 00:00:00 2023-11-02 00:00:00 Outpatient MD LEXY SILVEIRA [id number] Lexy Sey[facility] 2023-11-02 00:00:00 2023-11-02 00:00:00 Outpatient TRACY SIDHU [id number] [facility]y [facility] 2023-10-28 00:00:00 2023-10-28 00:00:00 Outpatient DIANN SADLER [id number] [facility]y [facility] 2023-10-25 08:30:00 2023-10-25 08:30:00 Outpatient TRACY SIDHU [id number] Lexy Seybmian 2023-10-20 00:00:00 2023-10-20 00:00:00 Outpatient MARK GUNTER [id number] [facility] 2023-10-18 16:15:00 2023-10-18 16:15:00 Outpatient DIANN SADLER [id number] [facility] 2023-10-14 15:00:00 2023-10-14 15:00:00 Outpatient BRIONNA CEBALLOS [id number] [facility] 2023-10-14 13:30:00 2023-10-14 13:30:00 Outpatient KAMI JUNIOR [id number] Lexy Sey[facility] 2023-10-14 11:20:00 2023-10-14 11:20:00 Outpatient TRACY SIDHU [id number] [facility] 2023-10-14 00:00:00 2023-10-14 00:00:00 Outpatient MD LEXY SILVEIRA [id number] [facility] 2023-10-13 13:00:00 2023-10-13 13:00:00 Outpatient MANPREET RAINEY [id number] [facility] 2023-10-13 08:30:00 2023-10-13 08:30:00 Outpatient MARK GUNTER [id number] Lexy [facility] 2023-10-13 00:00:00 2023-10-13 00:00:00 Outpatient MARK GUNTER LEXY STAHL [id number] [facility]y Sey[facility] 2023-10-13 00:00:00 2023-10-13 00:00:00 Outpatient MD LEXY SILVEIRA [id number] [facility]y [facility] 2023-10-13 00:00:00 2023-10-13 00:00:00 Outpatient NAHUMMARIBEL CAMARENACHI STAHL [id number] Lexy [facility] 2023-10-11 10:30:00 2023-10-11 10:30:00 Outpatient NAHUM TRACY STAHL [id number] Lexy [facility] 2023-10-11 00:00:00 2023-10-11 00:00:00 Outpatient PREDIANN HARPER [id number] [facility] 2023-10-05 00:00:00 2023-10-05 00:00:00 Outpatient PREZASDIANN [id number] Lexy Sey[facility] 2023-09-30 15:00:00 2023-09-30 15:00:00 Outpatient LINNETTE BARNETT [id number] [facility] 2023-09-30 13:00:00 2023-09-30 13:00:00 Outpatient NAHUMMARIBEL CAMARENACHI STAHL [id number] [facility] 2023-09-19 16:45:00 2023-09-19 16:45:00 Outpatient PREZASDIANN [id number] Lexy Seybold 2023-09-19 16:45:00 2023-09-19 16:45:00 Outpatient LAB90 LEXY STAHL [id number] [facility] 2023-09-16 00:00:00 2023-09-16 00:00:00 Outpatient MD LEXY SILVEIRA [id number] [facility] 2023-09-15 00:00:00 2023-09-15 00:00:00 Outpatient DIANN SADLER [id number] [facility] 2023-09-14 00:00:00 2023-09-14 00:00:00 Outpatient PREZADIANN Bae LEXY [id number] [facility] 2023-09-13 10:30:00 2023-09-13 10:30:00 Outpatient PREDIANN HARPER LEXY [id number] [facility] 2023-09-12 16:25:00 2023-09-12 16:25:00 Outpatient LAB90 LEXY LEXY [id number] [facility] 2023-09-12 00:00:00 2023-09-12 00:00:00 Outpatient NAHUMTRACY CAMARENA LEXY [id number] [facility] 2023-09-12 00:00:00 2023-09-12 00:00:00 Outpatient DIANN SADLER LEXY [id number] [facility] 2023-09-12 00:00:00 2023-09-12 00:00:00 Outpatient DIANN SADLER LEXY [id number] [facility] 2023-09-10 13:05:19 2023-09-10 13:05:19 Outpatient SFA SFA [id number] Philip Colby Codey 2023-09-03 13:46:36 2023-09-03 13:46:36 Outpatient SFA SFA [id number] Philip Lasha Codey 2023-09-02 15:00:00 2023-09-02 15:00:00 Outpatient TRACY SIDHU [id number] [facility] 2023-09-02 14:40:00 2023-09-02 14:40:00 Outpatient LEXY STAHL [id number] [facility] 2023-09-01 16:00:00 2023-09-01 16:00:00 Outpatient ARMAND LEONE [id number] [facility] 2023-08-30 08:00:00 2023-08-30 08:00:00 Outpatient TRACY SIDHU [id number] [facility] 2023-08-27 12:47:20 2023-08-27 12:47:20 Outpatient SFA SFA [id number] Philip Alegre 2023-08-22 17:24:25 2023-08-22 17:24:25 Outpatient SFA [facility] [id number] Philip Alegre 2023-08-20 00:00:00 2023-08-20 00:00:00 Outpatient DIANN SADLERNELLA STAHL [id number] [facility]13 11:33:10 2023-08-13 11:33:10 Outpatient SFA [facility] [id number] Philip Alegre 2023-08-09 14:40:13 2023-08-09 14:40:13 Outpatient SFA [facility] [id number] Philip Alegre 2023-07-30 11:45:59 2023-07-30 11:45:59 Outpatient SFA [facility] [id number] Philip Alegre 2023-07-29 00:00:00 2023-07-29 00:00:00 Outpatient PREZASDIANN LEXY STAHL [id number] [facility] 2023-07-29 00:00:00 2023-07-29 00:00:00 Outpatient PREZADIANN Bae LEXY STAHL [id number] [facility] 2023-07-16 12:30:40 2023-07-16 12:30:40 Outpatient SFA [facility] [id number] Philip Alegre 2023-07-13 00:00:00 2023-07-13 00:00:00 Outpatient PRADEEP VEGA [id number] [facility] 2023-06-30 00:00:00 2023-06-30 00:00:00 Outpatient PREZALADI BaeROGERIO STAHL [id number] [facility] 2023-06-28 08:15:00 2023-06-28 08:15:00 Outpatient PREZAKathia DIANN STAHL [id number] [facility] 2023-06-23 11:15:00 2023-06-23 11:15:00 Outpatient PREZADIANN Bae [facility] ST[facility]HL [id number] [facility] 15:30:00 2023-06-16 15:30:00 Outpatient DIANN SADLER LEXY [id number] [facility] 2023-06-10 10:35:00 2023-06-10 10:35:00 Outpatient LEXY STAHL [id number] [facility] 2023-06-10 10:30:00 2023-06-10 10:30:00 Outpatient LEXY STAHL [id number] [facility] 2023-06-10 10:25:00 2023-06-10 10:25:00 Outpatient LEXY STAHL [id number] [facility] 2023-06-10 10:10:00 2023-06-10 10:10:00 Outpatient TRACY SIDHU LEXY [id number] [facility] 2023-06-09 09:30:00 2023-06-09 09:30:00 Outpatient TRACY SIDHU LEXY [id number] [facility] 2023-06-08 14:04:14 2023-06-08 14:04:14 Outpatient SFA [facility] [id number] Philip Alegre 2023-06-08 00:00:00 2023-06-08 00:00:00 Outpatient TRACY SIDHU LEXY [id number] [facility] 2023-06-01 11:53:01 2023-06-01 11:53:01 Outpatient SFA [facility] [id number] Philip Alegre 2023-05-31 00:00:00 2023-05-31 00:00:00 Outpatient DIANN SADLER LEXY [id number] [facility] 2023-05-31 00:00:00 2023-05-31 00:00:00 Outpatient DIANN SADLER LEXY [id number] [facility] 2023-05-30 13:42:48 2023-05-30 13:42:48 Outpatient SFA [facility] 25 Philip Alegre 2023-05-27 00:00:00 2023-05-27 00:00:00 Outpatient DIANN SADLER LEXY [id number] [facility] 2023-05-26 10:15:00 2023-05-26 10:15:00 Outpatient LAB90 LEXY LEXY [id number] [facility] 2023-05-26 10:00:00 2023-05-26 10:00:00 Outpatient DIANN SADLER LEXY [id number] [facility] 2023-05-26 09:40:00 2023-05-26 09:40:00 Outpatient LAB90 LEXY LEXY [id number] [facility] 2023-05-25 00:00:00 2023-05-25 00:00:00 Outpatient DIANN SADLER LEXY STAHL [id number] [facility] 2023-05-24 00:00:00 2023-05-24 00:00:00 Outpatient PREDIANN HARPER LEXY STAHL [id number] [facility] 2023-05-23 00:00:00 2023-05-23 00:00:00 Outpatient NIC MEEK STAHL [id number] [facility] 2023-05-19 15:30:00 2023-05-19 15:30:00 Outpatient DIANN SADLER LEXY STAHL [id number] [facility] 2023-05-12 11:45:00 2023-05-12 11:45:00 Outpatient DOLORES MALIK LEXY STAHL [id number] [facility] 2023-05-12 00:00:00 2023-05-12 00:00:00 Outpatient VEGALAISHAPRADEEP LEXY STAHL [id number] [facility]12 00:00:00 2023-05-12 00:00:00 Outpatient VEGAPRADEEP LEXY STAHL [id number] [facility] 2023-05-11 00:00:00 2023-05-11 00:00:00 Outpatient DIANN SADLER LEXY STAHL [id number] [facility] 2023-05-11 00:00:00 2023-05-11 00:00:00 Outpatient MD LEXY SILVEIRA [id number] [facility] 2023-05-06 15:28:00 2023-05-06 15:28:00 Outpatient SFA SFA [id number] Philip Alegre 2023-05-05 09:15:00 2023-05-05 09:15:00 Outpatient RMMONALISADIANN Bae LEXY STAHL [id number] [facility] 2023-04-26 11:09:46 2023-04-26 11:09:46 Outpatient SFA SFA 08 Philip Alegre 2023-04-20 14:13:32 2023-04-20 14:13:32 Outpatient SFA SFA [id number] Philip Alegre 2023-04-20 00:00:00 2023-04-20 00:00:00 Outpatient RMLEROYLADIDIANNROGERIO STAHL [id number] [facility] 2023-04-18 00:00:00 2023-04-18 00:00:00 Outpatient MD LEXY SILVEIRA [id number] [facility]23-[facility]-18 00:00:00 2023-04-18 00:00:00 Outpatient VEGA, PRADEEP LEXY STAHL [id number] [facility] 2023-04-14 09:00:00 2023-04-14 09:00:00 Outpatient GARY PRADEEP LEXY STAHL [id number] [facility] 2023-04-11 10:28:19 2023-04-11 10:28:19 Outpatient SFA SFA [id number] Philip Alegre 2023-04-06 09:00:00 2023-04-06 09:00:00 Outpatient SANDRA LOPEZ [id number] [facility] 2023-04-05 00:00:00 2023-04-05 00:00:00 Outpatient RMDIANN HARPER [id number] [facility] 2023-04-03 00:00:00 2023-04-03 00:00:00 Outpatient DIANN SADLER [id number] [facility] 2023-04-01 09:00:00 2023-04-01 09:00:00 Outpatient DIANN SADLER [id number] [facility] 2023-04-01 00:00:00 2023-04-01 00:00:00 Outpatient DIANN SADLER LEXY STAHL [id number] [facility] 2023-03-31 11:51:33 2023-03-31 11:51:33 Outpatient SFA SFA 27 Philip Alegre 2023-03-24 10:30:00 2023-03-24 10:30:[address], TECH LEXY STAHL [id number] [facility] 2023-03-23 16:30:00 2023-03-23 16:30:[address], TECH LEXY STAHL [id number] [facility] 2023-03-23 00:00:00 2023-03-23 00:00:00 Outpatient MD LEXY SILVEIRA [id number] [facility] 00:00:00 2023-03-23 00:00:00 Outpatient DIANN SADLER LEXY STAHL [id number] [facility] 2023-03-18 16:14:23 2023-03-18 16:14:23 Outpatient SFA SFA [id number] [address] [place] 2023-03-18 10:20:00 2023-03-18 10:20:00 Outpatient LEXY STAHL [id number] [facility] 2023-03-18 10:15:00 2023-03-18 10:15:00 Outpatient LEXY STAHL [id number] [facility] 2023-03-18 10:10:00 2023-03-18 10:10:00 Outpatient LEXY STAHL [id number] [facility] 2023-03-18 10:05:00 2023-03-18 10:05:00 Outpatient LEXY STAHL [id number] [facility] 2023-03-18 10:00:00 2023-03-18 10:00:00 Outpatient LEXY STAHL [id number] [facility] 2023-03-18 00:00:00 2023-03-18 00:00:00 Outpatient DIANN SADLER [facility] [id number] [facility] 16:30:00 2023-03-17 16:30:[address], TECH [facility] [id number] [facility]23-03-11 08:15:00 2023-03-11 08:15:00 Outpatient ILIANA GREEN LEXY STAHL [id number] [facility] 2023-03-10 15:21:41 2023-03-10 15:21:41 Outpatient SFA SFA [id number] Philip F Codey 2023-03-10 00:00:00 2023-03-10 00:00:00 Outpatient LEXY STAHL [id number] [facility] 2023-03-03 10:00:00 2023-03-03 10:00:00 Outpatient CATHY MONTOYA [id number] [facility] 2023-03-02 10:45:00 2023-03-02 10:45:00 Outpatient MELISSA VILLALPANDO [id number] [facility] 2023-03-02 00:00:00 2023-03-02 00:00:00 Outpatient PRADEEP VEGA [id number] [facility] 2023-03-02 00:00:00 2023-03-02 00:00:00 Outpatient LEXY STAHL [id number] [facility] 2023-03-02 00:00:00 2023-03-02 00:00:00 Outpatient MD LEXY SILVEIRA [id number] [facility] 2023-03-01 13:28:37 2023-03-01 13:28:37 Outpatient SFA SFA 27 Philip Alegre 2023-03-01 00:00:00 2023-03-01 00:00:00 Outpatient MD LEXY SILVEIRA [id number] [facility] 2023-02-28 00:00:00 2023-02-28 00:00:00 Outpatient LEXY STAHL [id number] [facility] 2023-02-24 10:00:00 2023-02-24 10:00:00 Outpatient DULCE LEE LEXY STAHL [id number] [facility]23-02-24 00:00:00 2023-02-24 00:00:00 Outpatient LEXY STAHL [id number] [facility] 2023-02-22 15:21:24 2023-02-22 15:21:24 Outpatient SFA SFA [id number] Philip Colby Codey 2023-02-15 09:30:00 2023-02-15 09:30:00 Outpatient JESSICA KAREN LEXY STAHL [id number] [facility] 2023-02-03 15:20:00 2023-02-03 15:20:00 Outpatient MARITO GARSIA [id number] [facility] 2023-02-02 11:45:00 2023-02-02 11:45:00 Outpatient DIANN SADLER [id number] [facility] 2023-02-02 00:00:00 2023-02-02 00:00:00 Outpatient MD LEXY SILVEIRA [id number] [facility] 2023-02-02 00:00:00 2023-02-02 00:00:00 Outpatient DIANN SADLER [id number] [facility] 2023-02-02 00:00:00 2023-02-02 00:00:00 Outpatient DIANN SADLER [id number] [facility] 2023-02-01 14:40:00 2023-02-01 14:40:00 Outpatient DENIA DIAZ [id number] [facility] 2023-01-22 10:22:15 2023-01-22 10:22:15 Outpatient SFA [facility] [id number] Philip Colby Codey 2023-01-21 00:00:00 2023-01-21 00:00:00 Outpatient DIANN SADLER [id number] [facility] 2023-01-21 00:00:00 2023-01-21 00:00:00 Outpatient DIANN SADLER [id number] [facility]-01-20 00:00:00 2023-01-20 00:00:00 Outpatient DIANN SADLER [id number] [facility] 2023-01-19 15:55:00 2023-01-19 15:55:00 Outpatient TJ STAHL [id number] [facility] 2023-01-19 15:00:00 2023-01-19 15:00:00 Outpatient DIANN SADLER [id number] [facility] 2022-12-30 11:51:08 2022-12-30 11:51:08 Outpatient SFA SFA [id number] Philip Alegre 2022-12-21 11:35:05 2022-12-21 11:35:05 Outpatient SFA SFA [id number] Philip Alegre 2022-11-29 10:35:36 2022-11-29 10:35:36 Outpatient SFA SFA [id number] Philip Alegre 2022-11-17 16:24:03 2022-11-17 16:24:03 Outpatient SFA SFA [id number] Philip Alegre 2022-11-03 13:33:54 2022-11-03 13:33:54 Outpatient SFA SFA [id number] Philip Alegre 2022-11-01 11:06:48 2022-11-01 11:06:48 Outpatient SFA SFA [id number] Philip F Codey 2022-10-20 09:10:03 2022-10-20 09:10:03 Outpatient SFA SFA 021 Philip Colby Codey 2022-10-19 16:00:00 2022-10-19 16:00:00 Outpatient ANTONIO ALEMAN [id number] [facility] 2022-10-15 08:30:00 2022-10-15 08:30:00 Outpatient ANTONIO ALEMAN [id number] [facility] 2022-08-02 09:56:02 2022-08-02 09:56:02 Outpatient SFA SFA 1128 Philip Alegre 2022-07-19 10:54:12 2022-07-19 10:54:12 Outpatient SFA [facility] 1114 Philip Alegre 2022-07-12 13:01:10 2022-07-12 13:01:10 Outpatient SFA [facility] 1107 Philip Alegre 2022-07-06 14:38:17 2022-07-06 14:38:17 Outpatient SFA [facility] 1101 Philip Alegre 2022-07-06 00:00:00 2022-07-06 00:00:00 Outpatient Visit [id number]-2 [id number] 2022-06-29 11:06:43 2022-06-29 11:06:43 Outpatient SFA [facility] 1025 Philip Alegre 2022-06-29 00:00:00 2022-06-29 00:00:00 Outpatient Visit [id number] [id number] [id number] 2022-06-23 10:34:08 2022-06-23 10:34:08 Outpatient SFA [facility] 1019 Philip Alegre 2022-06-23 00:00:00 2022-06-23 00:00:00 Outpatient Visit [id number] -[id number] 5086-09-29 11:37:54 2022-06-03 11:37:54 Outpatient SFA [facility] 0929 Philip Alegre 2022-05-27 00:00:00 2022-05-27 00:00:00 Outpatient Visit [id number] -[id number] [id number] [id number] 1956-09[birth year]13 00:00:00 2021-05-18 00:00:00 Patient Secure Msg Doctor Unassigned, [place] [facility] [id number] [id number] [facility] 2021-05-17 12:20:00 2021-05-17 13:32:00 Emergency [facility] [id number] [id number] [id number] [facility] 2021-05-17 11:46:00 2021-05-17 11:46:00 Emergency X [facility] ERT [id number] [facility] Results Test Description Test Time Test Comments Results Result Co mments Source PSA, [id number] 04:57:49* Test Item Value Reference Range Interpretation Comme nts PSA, TOTAL (test code = 2606) 1.93 NG/ML See_Comment NOTE: Methodolog y is Corazon Nakul Electrochemiluminescence Immunoassay traceable to WHO reference standard 96/760. [Automated message] The system which generated this result transmitted reference range: <=4.00. The reference range was not used to interpret this result as normal/abnormal. CBC W/AUTO DIFF WITH [id number] 03:27:34* Test Item Value Reference Range Interpretation [...] 0.00-0.10 ABS NUCLEATED RBCS (test code = 68825) 0.00 K/UL 0.00-0.11 LIPID [id number] 03:20:10* Test Item Value Reference Range Interpretation [...] SPECIMENS. FOR MOREINFORMATION, SEE CLIENT ANNOUNCEMENT AT [email or web address] RISK RATIO LDL/HDL (test code = 2238) 2.20 RATIO <3.55 [id number] 06:44:59* Test Item Value Reference Range Interpretation Comme nts TESTOSTERONE (test code = 2830) 181 NG/DL 300-890 L UNLESS OTHERWISE INDICATED, ALL TESTING PERFORMED [facility] [address] [place], [place] [address] BRILLIANDEER LOOPER: DIAMOND ODELL M.D. CLIA NUMBER [id number] [place]. [id number] 00:00:00* Test Item Value Reference Range Interpretation Comme nts TESTOSTERONE (test code = 2830) 181 NG/DL TSH, THIRD [id number] 06:46:28* Test Item Value Reference Range Interpretation Comme nts TSH, THIRD GENERATION (test code = 2821) 2.570 UIU/ML 0.400-4.100 SEDIMENTATION [id number] 06:44:10* Test Item Value Reference Range Interpretation Comme nts SEDIMENTATION RATE (test cod e = 1017) 16 MM/HOUR 0-15 H [id number] 05:48:38* Test Item Value Reference Range Interpretation Comme nts TESTOSTERONE (test code = 2830) 173 NG/DL 300-890 L C-REACTIVE [id number] 05:06:35* Test Item Value Reference Range Interpretation Comme nts C-REACTIVE PROTEIN (test cod e = 3513) 0.7 MG/DL <0.5 H [id number] 04:49:21* Test Item Value Reference Range Interpretation Comme nts CREATININE (test code = 2214) 1.07 MG/DL 0.80-1.40 eGFR (2020 CKD-EPI) (test code = 98492) 81 ML/MIN/1.73 >60 UNLESS OTHER PERSON INDICATED, ALL TESTING PERFORMED [facility] [address] [place] [address] BRILLIANDEER LOOPER: DIAMOND ODELL M.D. CLIA NUMBER [id number] [place]. [id number] CBC W/AUTO DIFF WITH [id number] 04:05:47* Test Item Value Reference Range Interpretation [...] = 1065) 0.0 /100 WBC'S See_Comment [Automated message] The system which generated this [...] 0.00-0.10 ABS NUCLEATED RBCS (test code = 90160) 0.00 K/UL 0.00-0.11 CBC W/AUTO [id number] 00:00:00* Test Item Value Reference Range Interpretation [...] ABS NUCLEATED RBCS (test cod e = 13848) 0.00 K/UL [id number] 00:00:00* Test Item Value Reference Range Interpretation Comme nts TESTOSTERONE (test code = 2830) 173 NG/DL TSH, THIRD [id number] 00:00:00* Test Item Value Reference Range Interpretation Comme nts TSH, THIRD GENERATION (test code = 2821) 2.570 UIU/ML SEDIMENTATION [id number] 00:00:00* Test Item Value Reference Range Interpretation Comme nts SEDIMENTATION RATE (test cod e = 1017) 16 MM/HOUR C-REACTIVE [id number] 00:00:00* Test Item Value Reference Range Interpretation Comme nts C-REACTIVE PROTEIN (test cod e = 3513) 0.7 MG/DL [id number] 00:00:00* Test Item Value Reference Range Interpretation Comme nts CREATININE (test code = 2214) 1.07 MG/DL eGFR (2020 CKD-EPI) (test co de = 60535) 81 ML/MIN/1.73 CBC W/AUTO [id number] 00:00:00* Test Item Value Reference Range Interpretation [...] ABS NUCLEATED RBCS (test cod e = 93073) 0.00 K/UL [id number] 00:00:00* Test Item Value Reference Range Interpretation Comme nts TESTOSTERONE (test code = 2830) 173 NG/DL TSH, THIRD [id number] 00:00:00* Test Item Value Reference Range Interpretation Comme nts TSH, THIRD GENERATION (test code = 2821) 2.570 UIU/ML SEDIMENTATION [id number] 00:00:00* Test Item Value Reference Range Interpretation Comme nts SEDIMENTATION RATE (test cod e = 1017) 16 MM/HOUR C-REACTIVE [id number] 00:00:00* Test Item Value Reference Range Interpretation Comme nts C-REACTIVE PROTEIN (test cod e = 3513) 0.7 MG/DL [id number] 00:00:00* Test Item Value Reference Range Interpretation Comme nts CREATININE (test code = 2214) 1.07 MG/DL eGFR (2020 CKD-EPI) (test co de = 80804) 81 ML/MIN/1.73 CBC W/AUTO [id number] 00:00:00* Test Item Value Reference Range Interpretation [...] ABS NUCLEATED RBCS (test cod e = 16662) 0.00 K/UL [id number] 00:00:00* Test Item Value Reference Range Interpretation Comme nts TESTOSTERONE (test code = 2830) 173 NG/DL TSH, THIRD [id number] 00:00:00* Test Item Value Reference Range Interpretation Comme nts TSH, THIRD GENERATION (test code = 2821) 2.570 UIU/ML SEDIMENTATION [id number] 00:00:00* Test Item Value Reference Range Interpretation Comme nts SEDIMENTATION RATE (test cod e = 1017) 16 MM/HOUR C-REACTIVE [id number] 00:00:00* Test Item Value Reference Range Interpretation Comme nts C-REACTIVE PROTEIN (test cod e = 3513) 0.7 MG/DL [id number] 00:00:00* Test Item Value Reference Range Interpretation Comme nts CREATININE (test code = 2214) 1.07 MG/DL eGFR (2020 CKD-EPI) (test co de = 80726) 81 ML/MIN/1.73 HEMOGLOBIN [id number] 10:19:29* Test Item Value Reference Range Interpretation Comme nts HEMOGLOBIN A1c (test code = 42545) 5.9 % 4.2-5.6 H COMPREHENSIVE METABOLIC [id number] 04:39:34* Test Item Value Reference Range Interpretation Comme nts GLUCOSE (test code = 2217) 126 MG/DL 70-99 H BUN (test code = 2208) 20 MG/DL 6-20 CREATININE (test code = 2214) 1.12 MG/DL 0.80-1.40 eGFR (2020 CKD-EPI) (test code = 21447) 77 ML/MIN/1.73 >60 CALC BUN/CREAT (test code = 2235) 18 RATIO 6-28 SODIUM (test code = 2231) 141 MEQ/L 133-146 POTASSIUM (test code = 2228) 3.8 MEQ/L 3.5-5.4 CHLORIDE (test code = 2215) 102 MEQ/L 95-107 CARBON DIOXIDE (test code = 2206) 27 MEQ/L 19-31 CALCIUM (test code = 2209) 10.0 MG/DL 8.5-10.5 PROTEIN, TOTAL (test code = 2229) 7.1 G/DL 6.1-8.3 ALBUMIN (test code = 2201) 4.2 G/DL 3.5-5.2 CALC GLOBULIN (test code = 2240) 2.9 G/DL 1.9-3.7 CALC A/G RATIO (test code = 2234) 1.4 RATIO 1.0-2.6 BILIRUBIN, TOTAL (test code = 2207) 0.4 MG/DL See_Comment [Automated me ssage] The system which generated this result transmitted reference range: <=1.2. The reference range was not used to interpret this result as normal/abnormal. ALKALINE PHOSPHATASE (test code = 2204) 101 U/L 40-123 AST (test code = 2218) 24 U/L 9-50 ALT (test code = 2219) 42 U/L 5-50 LIPID [id number] 04:39:34* Test Item Value Reference Range Interpretation [...] SPECIMENS. FOR MOREINFORMATION, SEE CLIENT ANNOUNCEMENT AT [email or web address] RISK RATIO LDL/HDL (test code = 2238) 3.35 RATIO <3.55 UNLESS OTHERW ISE INDICATED, ALL TESTING PERFORMED [facility] [employer] [employer] [address] [place] [address] BRILLIANDEER LOOPER: DIAMOND ODELL M.D. CLIA NUMBER [id number] [facility] [place]. [id number] COMPREHENSIVE METABOLIC [id number] 00:00:00* Test Item Value Reference Range Interpretation Comme nts GLUCOSE (test code = 2217) 126 MG/DL BUN (test code = 2208) 20 MG/DL CREATININE (test code = 2214) 1.12 MG/DL eGFR (2020 CKD-EPI) (test co de = 13218) 77 ML/MIN/1.73 CALC BUN/CREAT (test code = [...] (test code = 2219) 42 U/L HEMOGLOBIN [id number] 00:00:00* Test Item Value Reference Range Interpretation Comme nts HEMOGLOBIN A1c (test code = 91128) 5.9 % LIPID [id number] 00:00:00* Test Item Value Reference Range Interpretation Comme nts CHOLESTEROL (test code = 2210) 246 MG/DL TRIGLYCERIDES (test code = 2232) 209 MG/DL HDL CHOLESTEROL (test code = 2220) 48 MG/DL CALC LDL CHOL (test code = 2237) 161 MG/DL RISK RATIO LDL/HDL (test cod e = 2238) 3.35 RATIO COMPREHENSIVE METABOLIC [id number] 00:00:00* Test Item Value Reference Range Interpretation Comme nts GLUCOSE (test code = 2217) 126 MG/DL BUN (test code = 2208) 20 MG/DL CREATININE (test code = 2214) 1.12 MG/DL eGFR (2020 CKD-EPI) (test co de = 84585) 77 ML/MIN/1.73 CALC BUN/CREAT (test code = [...] (test code = 2219) 42 U/L HEMOGLOBIN [id number] 00:00:00* Test Item Value Reference Range Interpretation Comme nts HEMOGLOBIN A1c (test code = 95690) 5.9 % LIPID [id number] 00:00:00* Test Item Value Reference Range Interpretation Comme nts CHOLESTEROL (test code = 2210) 246 MG/DL TRIGLYCERIDES (test code = 2232) 209 MG/DL HDL CHOLESTEROL (test code = 2220) 48 MG/DL CALC LDL CHOL (test code = 2237) 161 MG/DL RISK RATIO LDL/HDL (test cod e = 2238) 3.35 RATIO COMPREHENSIVE METABOLIC [id number] 00:00:00* Test Item Value Reference Range Interpretation Comme nts GLUCOSE (test code = 2217) 126 MG/DL BUN (test code = 2208) 20 MG/DL CREATININE (test code = 2214) 1.12 MG/DL eGFR (2020 CKD-EPI) (test co de = 23171) 77 ML/MIN/1.73 CALC BUN/CREAT (test code = [...] (test code = 2219) 42 U/L HEMOGLOBIN [id number] 00:00:00* Test Item Value Reference Range Interpretation Comme nts HEMOGLOBIN A1c (test code = 54755) 5.9 % LIPID [id number] 00:00:00* Test Item Value Reference Range Interpretation Comme nts CHOLESTEROL (test code = 2210) 246 MG/DL TRIGLYCERIDES (test code = 2232) 209 MG/DL HDL CHOLESTEROL (test code = 2220) 48 MG/DL CALC LDL CHOL (test code = 2237) 161 MG/DL RISK RATIO LDL/HDL (test cod e = 2238) 3.35 RATIO HEMOGLOBIN [id number] 05:30:45* Test Item Value Reference Range Interpretation Comme nts HEMOGLOBIN A1c (test code = 81773) 6.2 % 4.2-5.6 H UNLESS OTHERWISE INDICATED, ALL TESTING PERFORMED [facility] [employer] [address] [place] [address] BRILLIANDEER LOOPER: DIAMOND ODELL M.D. IA NUMBER [id number] [facility] [place]. [id number] COMPREHENSIVE METABOLIC [id number] 04:18:35* Test Item Value Reference Range Interpretation Comme nts GLUCOSE (test code = 2217) 167 MG/DL 70-99 H BUN (test code = 2208) 21 MG/DL 6-20 H CREATININE (test code = 2214) 1.18 MG/DL 0.80-1.40 eGFR (2020 CKD-EPI) (test code = 62116) 72 ML/MIN/1.73 >60 CALC BUN/CREAT (test code = 2235) 18 RATIO 6-28 SODIUM (test code = 2231) 139 MEQ/L 133-146 POTASSIUM (test code = 2228) 4.3 MEQ/L 3.5-5.4 CHLORIDE (test code = 2215) 100 MEQ/L 95-107 CARBON DIOXIDE (test code = 2206) 29 MEQ/L 19-31 CALCIUM (test code = 2209) 9.7 MG/DL 8.5-10.5 PROTEIN, TOTAL (test code = 2229) 7.4 G/DL 6.1-8.3 ALBUMIN (test code = 2201) 4.1 G/DL 3.5-5.2 CALC GLOBULIN (test code = 2240) 3.3 G/DL 1.9-3.7 CALC A/G RATIO (test code = 2234) 1.2 RATIO 1.0-2.6 BILIRUBIN, TOTAL (test code = 2207) 0.5 MG/DL See_Comment [Automated me ssage] The system which generated this result transmitted reference range: <=1.2. The reference range was not used to interpret this result as normal/abnormal. ALKALINE PHOSPHATASE (test code = 2204) 124 U/L 40-123 H AST (test code = 2218) 17 U/L 9-50 ALT (test code = 2219) 32 U/L 5-50 LIPID [id number] 04:18:35* Test Item Value Reference Range Interpretation Comme nts CHOLESTEROL (test code = 2210) 240 MG/DL <200 H TRIGLYCERIDES (test code = 2232) 160 MG/DL <150 H HDL CHOLESTEROL (test code = 2220) 53 MG/DL >39 CALC LDL CHOL (test code = 2237) 157 MG/DL <100 H NOTE: CALCULATED LDL IS BASED ON ARAVIND-CLAIRE METHOD WHICHINCLUDES ADJUSTABLE TRIGLYCERIDE:VLDL CHOLESTEROL RATIO.THIS FACTOR VARIES BY MEASURED TRIGLYCERIDE AND NON-HDLCHOLESTEROL CONCENTRATIONS WITH INCREASED CALCULATED LDL SEENIN HIGHER TRIGLYCERIDE OR LOWER NON-HDL SPECIMENS. FOR MOREINFORMATION, SEE CLIENT ANNOUNCEMENT AT [email or web address]-[email or web address] RISK RATIO LDL/HDL (test code = 2238) 2.96 RATIO <3.55 COMPREHENSIVE METABOLIC [id number] 00:00:00* Test Item Value Reference Range Interpretation Comme nts GLUCOSE (test code = 2217) 167 MG/DL BUN (test code = 2208) 21 MG/DL CREATININE (test code = 2214) 1.18 MG/DL eGFR (2020 CKD-EPI) (test co de = 10778) 72 ML/MIN/1.73 CALC BUN/CREAT (test code = [...] (test code = 2219) 32 U/L LIPID [id number] 00:00:00* Test Item Value Reference Range Interpretation Comme nts CHOLESTEROL (test code = 2210) 240 MG/DL TRIGLYCERIDES (test code = 2232) 160 MG/DL HDL CHOLESTEROL (test code = 2220) 53 MG/DL CALC LDL CHOL (test code = 2237) 157 MG/DL RISK RATIO LDL/HDL (test cod e = 2238) 2.96 RATIO 2708 HEMOGLOBIN [id number] 00:00:00* Test Item Value Reference Range Interpretation Comme nts HEMOGLOBIN A1c (test code = 15517) 6.2 % COMPREHENSIVE METABOLIC [id number] 00:00:00* Test Item Value Reference Range Interpretation Comme nts GLUCOSE (test code = 2217) 167 MG/DL BUN (test code = 2208) 21 MG/DL CREATININE (test code = 2214) 1.18 MG/DL eGFR (2020 CKD-EPI) (test co de = 14875) 72 ML/MIN/1.73 CALC BUN/CREAT (test code = [...] (test code = 2219) 32 U/L LIPID [id number] 00:00:00* Test Item Value Reference Range Interpretation Comme nts CHOLESTEROL (test code = 2210) 240 MG/DL TRIGLYCERIDES (test code = 2232) 160 MG/DL HDL CHOLESTEROL (test code = 2220) 53 MG/DL CALC LDL CHOL (test code = 2237) 157 MG/DL RISK RATIO LDL/HDL (test cod e = 2238) 2.96 RATIO 2708 HEMOGLOBIN [id number] 00:00:00* Test Item Value Reference Range Interpretation Comme nts HEMOGLOBIN A1c (test code = 77146) 6.2 % COMPREHENSIVE METABOLIC [id number] 00:00:00* Test Item Value Reference Range Interpretation Comme nts GLUCOSE (test code = 2217) 167 MG/DL BUN (test code = 2208) 21 MG/DL CREATININE (test code = 2214) 1.18 MG/DL eGFR (2020 CKD-EPI) (test co de = 46647) 72 ML/MIN/1.73 CALC BUN/CREAT (test code = [...] code = 2219) 32 U/L COMPREHENSIVE METABOLIC [id number] 00:00:00* Test Item Value Reference Range Interpretation Comme nts GLUCOSE (test code = 2217) 167 MG/DL BUN (test code = 2208) 21 MG/DL CREATININE (test code = 2214) 1.18 MG/DL eGFR (2020 CKD-EPI) (test co de = 25350) 72 ML/MIN/1.73 CALC BUN/CREAT (test code = [...] (test code = 2219) 32 U/L LIPID [id number] 00:00:00* Test Item Value Reference Range Interpretation Comme nts CHOLESTEROL (test code = 2210) 240 MG/DL TRIGLYCERIDES (test code = 2232) 160 MG/DL HDL CHOLESTEROL (test code = 2220) 53 MG/DL CALC LDL CHOL (test code = 2237) 157 MG/DL RISK RATIO LDL/HDL (test cod e = 2238) 2.96 RATIO 2708 HEMOGLOBIN [id number] 00:00:00* Test Item Value Reference Range Interpretation Comme nts HEMOGLOBIN A1c (test code = 95881) 6.2 % LIPID [id number] 00:00:00* Test Item Value Reference Range Interpretation Comme nts CHOLESTEROL (test code = 2210) 240 MG/DL TRIGLYCERIDES (test code = 2232) 160 MG/DL HDL CHOLESTEROL (test code = 2220) 53 MG/DL CALC LDL CHOL (test code = 2237) 157 MG/DL RISK RATIO LDL/HDL (test cod e = 2238) 2.96 RATIO 2708 HEMOGLOBIN [id number] 00:00:00* Test Item Value Reference Range Interpretation Comme nts HEMOGLOBIN A1c (test code = 29612) 6.2 % [id number] 17:51:37* Test Item Value Reference Range Interpretation Comme nts APPEARANCE (test code = 2785776750) Clear Clear COLOR (test code = 4264765618) Yellow Yellow PH (test code = 3902630216) 4.8-8.0 SP GRAVITY (test code = 2574884025) 1.003-1.030 GLU U QUAL (test code = 1039637726) Normal Normal BLOOD (test code = 6880896249) Negative Negative KETONES (test code = 3222066427) Negative Negative PROTEIN (test code = 2887-8) Negative Negative UROBILIN (test code = 1436825215) Normal Normal BILIRUBIN (test code = 9164144745) Negative Negative NITRITE (test code = 1738908082) Negative Negative LEUK SADIQ (test code = 8508553094) Negative Negative RBC/HPF (test code = 6537666226) See_Comment [Automated messa ge] The system which generated this result transmitted reference range: 0 - 3 HPF. The reference range was not used to interpret this result as normal/abnormal. WBC/HPF (test code = 6334475907) See_Comment [Automated [employer]] The system which generated this result transmitted reference range: 0 - 5 HPF. The reference range was not used to interpret this result as normal/abnormal. BACTERIA (test code = 6795321324) Negative Negative MUCOUS (test code = 6376972254) Slight Negative LPF A SQ EPITH (test code = 8880349819) <1 HPF Lab Interpretation (test code = 71391-3) [id number]:51:37* Test Item Value Reference Range Interpretation Comme nts APPEARANCE (test code = 4970424488) Clear Clear COLOR (test code = 3434621892) Yellow Yellow PH (test code = 1810761134) 4.8-8.0 SP GRAVITY (test code = 8773680291) 1.003-1.030 GLU U QUAL (test code = 7812655210) Normal Normal BLOOD (test code = 5546187985) Negative Negative KETONES (test code = 7172398856) Negative Negative PROTEIN (test code = 2887-8) Negative Negative UROBILIN (test code = 2011149573) Normal Normal BILIRUBIN (test code = 0648916464) Negative Negative NITRITE (test code = 4398008034) Negative Negative LEUK SADIQ (test code = 3864189427) Negative Negative RBC/HPF (test code = 9522341935) See_Comment [Automated [employer]] The system which generated this result transmitted reference range: 0 - 3 HPF. The reference range was not used to interpret this result as normal/abnormal. WBC/HPF (test code = 5576738791) See_Comment [Automated [employer]] The system which generated this result transmitted reference range: 0 - 5 HPF. The reference range was not used to interpret this result as normal/abnormal. BACTERIA (test code = 3042817228) Negative Negative MUCOUS (test code = 5895575786) Slight Negative LPF A SQ EPITH (test code = 8835053607) <1 HPF Lab Interpretation (test code = 27113-3) [facility] [id number] 00:00:00* Test Item Value Reference Range Interpretation [...] code = 1015) 287 K/UL COMPREHENSIVE METABOLIC [id number] 00:00:00* Test Item Value Reference Range Interpretation Comme nts GLUCOSE (test code = 2217) 84 MG/DL BUN (test code = 2208) 16 MG/DL CREATININE (test code = 2214) 1.03 MG/DL eGFR AMER. (test cod e = 97220) 94 ML/MIN/1.73 eGFR NON- AMER. (test code = 20455) 81 ML/MIN/1.73 CALC BUN/CREAT (test code = [...] (test code = 2219) 31 U/L HEMOGLOBIN [id number] 00:00:00* Test Item Value Reference Range Interpretation Comme nts HEMOGLOBIN A1c (test code = 80401) 5.9 % LIPID [id number] 00:00:00* Test Item Value Reference Range Interpretation Comme nts CHOLESTEROL (test code = 2210) 281 MG/DL TRIGLYCERIDES (test code = 2232) 352 MG/DL HDL CHOLESTEROL (test code = 2220) 49 MG/DL CALC LDL CHOL (test code = 2237) 162 MG/DL RISK RATIO LDL/HDL (test cod e = 2238) 3.30 RATIO CBC W/AUTO [id number] 00:00:00* Test Item Value Reference Range Interpretation [...] code = 1015) 287 K/UL COMPREHENSIVE METABOLIC [id number] 00:00:00* Test Item Value Reference Range Interpretation Comme nts GLUCOSE (test code = 2217) 84 MG/DL BUN (test code = 2208) 16 MG/DL CREATININE (test code = 2214) 1.03 MG/DL eGFR AMER. (test cod e = 87917) 94 ML/MIN/1.73 eGFR NON- AMER. (test code = 93264) 81 ML/MIN/1.73 CALC BUN/CREAT (test code = [...] (test code = 2219) 31 U/L HEMOGLOBIN [id number] 00:00:00* Test Item Value Reference Range Interpretation Comme nts HEMOGLOBIN A1c (test code = 60994) 5.9 % LIPID [id number] 00:00:00* Test Item Value Reference Range Interpretation Comme nts CHOLESTEROL (test code = 2210) 281 MG/DL TRIGLYCERIDES (test code = 2232) 352 MG/DL HDL CHOLESTEROL (test code = 2220) 49 MG/DL CALC LDL CHOL (test code = 2237) 162 MG/DL RISK RATIO LDL/HDL (test cod e = 2238) 3.30 RATIO CBC W/AUTO [id number] 00:00:00* Test Item Value Reference Range Interpretation [...] code = 1015) 287 K/UL CBC W/AUTO [id number] 00:00:00* Test Item Value Reference Range Interpretation [...] code = 1015) 287 K/UL COMPREHENSIVE METABOLIC [id number] 00:00:00* Test Item Value Reference Range Interpretation Comme nts GLUCOSE (test code = 2217) 84 MG/DL BUN (test code = 2208) 16 MG/DL CREATININE (test code = 2214) 1.03 MG/DL eGFR AMER. (test cod e = 64492) 94 ML/MIN/1.73 eGFR NON- AMER. (test code = 31388) 81 ML/MIN/1.73 CALC BUN/CREAT (test code = [...] (test code = 2219) 31 U/L HEMOGLOBIN [id number] 00:00:00* Test Item Value Reference Range Interpretation Comme nts HEMOGLOBIN A1c (test code = 30632) 5.9 % LIPID [id number] 00:00:00* Test Item Value Reference Range Interpretation Comme nts CHOLESTEROL (test code = 2210) 281 MG/DL TRIGLYCERIDES (test code = 2232) 352 MG/DL HDL CHOLESTEROL (test code = 2220) 49 MG/DL CALC LDL CHOL (test code = 2237) 162 MG/DL RISK RATIO LDL/HDL (test cod e = 2238) 3.30 RATIO COMPREHENSIVE METABOLIC [id number] 00:00:00* Test Item Value Reference Range Interpretation Comme nts GLUCOSE (test code = 2217) 84 MG/DL BUN (test code = 2208) 16 MG/DL CREATININE (test code = 2214) 1.03 MG/DL eGFR AMER. (test cod e = 34407) 94 ML/MIN/1.73 eGFR NON- AMER. (test code = 65172) 81 ML/MIN/1.73 CALC BUN/CREAT (test code = [...] (test code = 2219) 31 U/L HEMOGLOBIN [id number] 00:00:00* Test Item Value Reference Range Interpretation Comme nts HEMOGLOBIN A1c (test code = 63088) 5.9 % LIPID [id number] 00:00:00* Test Item Value Reference Range Interpretation Comme nts CHOLESTEROL (test code = 2210) 281 MG/DL TRIGLYCERIDES (test code = 2232) 352 MG/DL HDL CHOLESTEROL (test code = 2220) 49 MG/DL CALC LDL CHOL (test code = 2237) 162 MG/DL RISK RATIO LDL/HDL (test cod e = 2238) 3.30 RATIO COMPREHENSIVE METABOLIC [id number] 00:00:00* Test Item Value Reference Range Interpretation Comme nts GLUCOSE (test code = 2217) 102 MG/DL BUN (test code = 2208) 18 MG/DL CREATININE (test code = 2214) 1.10 MG/DL eGFR AMER. (test cod e = 86977) 88 ML/MIN/1.73 eGFR NON- AMER. (test code = 26583) 76 ML/MIN/1.73 CALC BUN/CREAT (test code = [...] (test code = 2219) 32 U/L LIPID [id number] 00:00:00* Test Item Value Reference Range Interpretation Comme nts CHOLESTEROL (test code = 2210) 262 MG/DL TRIGLYCERIDES (test code = 2232) 189 MG/DL HDL CHOLESTEROL (test code = 2220) 58 MG/DL CALC LDL CHOL (test code = 2237) 166 MG/DL RISK RATIO LDL/HDL (test cod e = 2238) 2.87 RATIO COMPREHENSIVE METABOLIC [id number] 00:00:00* Test Item Value Reference Range Interpretation Comme nts GLUCOSE (test code = 2217) 102 MG/DL BUN (test code = 2208) 18 MG/DL CREATININE (test code = 2214) 1.10 MG/DL eGFR AMER. (test cod e = 37089) 88 ML/MIN/1.73 eGFR NON- AMER. (test code = 71713) 76 ML/MIN/1.73 CALC BUN/CREAT (test code = [...] (test code = 2219) 32 U/L LIPID [id number] 00:00:00* Test Item Value Reference Range Interpretation Comme nts CHOLESTEROL (test code = 2210) 262 MG/DL TRIGLYCERIDES (test code = 2232) 189 MG/DL HDL CHOLESTEROL (test code = 2220) 58 MG/DL CALC LDL CHOL (test code = 2237) 166 MG/DL RISK RATIO LDL/HDL (test cod e = 2238) 2.87 RATIO COMPREHENSIVE METABOLIC [id number] 00:00:00* Test Item Value Reference Range Interpretation Comme nts GLUCOSE (test code = 2217) 102 MG/DL BUN (test code = 8) 18 MG/DL CREATININE (test code = 2214) 1.10 MG/DL eGFR AMER. (test cod e = 23236) 88 ML/MIN/1.73 eGFR NON- AMER. (test code = 47040) 76 ML/MIN/1.73 CALC BUN/CREAT (test code = [...] (test code = 2219) 32 U/L LIPID [id number] 00:00:00* Test Item Value Reference Range Interpretation Comme nts CHOLESTEROL (test code = 2210) 262 MG/DL TRIGLYCERIDES (test code = 2232) 189 MG/DL HDL CHOLESTEROL (test code = 2220) 58 MG/DL CALC LDL CHOL (test code = 2237) 166 MG/DL RISK RATIO LDL/HDL (test cod e = 2238) 2.87 RATIO COMPREHENSIVE METABOLIC [id number] 00:00:00* Test Item Value Reference Range Interpretation Comme nts GLUCOSE (test code = 2217) 102 MG/DL BUN (test code = 2208) 18 MG/DL CREATININE (test code = 2214) 1.10 MG/DL eGFR AMER. (test cod e = 74064) 88 ML/MIN/1.73 eGFR NON- AMER. (test code = 93082) 76 ML/MIN/1.73 CALC BUN/CREAT (test code = [...] (test code = 2219) 32 U/L LIPID [id number] 00:00:00* Test Item Value Reference Range Interpretation Comme nts CHOLESTEROL (test code = 2210) 262 MG/DL TRIGLYCERIDES (test code = 2232) 189 MG/DL HDL CHOLESTEROL (test code = 2220) 58 MG/DL CALC LDL CHOL (test code = 2237) 166 MG/DL RISK RATIO LDL/HDL (test cod e = 2238) 2.87 RATIO COMPREHENSIVE METABOLIC [id number] 00:00:00* Test Item Value Reference Range Interpretation Comme nts GLUCOSE (test code = 2217) 79 MG/DL BUN (test code = 2208) 14 MG/DL CREATININE (test code = 2214) 0.95 MG/DL eGFR AMER. (test cod e = 98764) 105 ML/MIN/1.73 eGFR NON- AMER. (test code = 50313) 91 ML/MIN/1.73 CALC BUN/CREAT (test code = [...] (test code = 2219) 23 U/L LIPID [id number] 00:00:00* Test Item Value Reference Range Interpretation Comme nts CHOLESTEROL (test code = 2210) 242 MG/DL TRIGLYCERIDES (test code = 2232) 233 MG/DL HDL CHOLESTEROL (test code = 2220) 52 MG/DL CALC LDL CHOL (test code = 2237) 143 MG/DL RISK RATIO LDL/HDL (test cod e = 2238) 2.76 RATIO COMPREHENSIVE METABOLIC [id number] 00:00:00* Test Item Value Reference Range Interpretation Comme nts GLUCOSE (test code = 2217) 79 MG/DL BUN (test code = 2208) 14 MG/DL CREATININE (test code = 2214) 0.95 MG/DL eGFR AMER. (test cod e = 32223) 105 ML/MIN/1.73 eGFR NON- AMER. (test code = 38602) 91 ML/MIN/1.73 CALC BUN/CREAT (test code = [...] (test code = 2219) 23 U/L LIPID [id number] 00:00:00* Test Item Value Reference Range Interpretation Comme nts CHOLESTEROL (test code = 2210) 242 MG/DL TRIGLYCERIDES (test code = 2232) 233 MG/DL HDL CHOLESTEROL (test code = 2220) 52 MG/DL CALC LDL CHOL (test code = 2237) 143 MG/DL RISK RATIO LDL/HDL (test cod e = 2238) 2.76 RATIO COMPREHENSIVE METABOLIC [id number] 00:00:00* Test Item Value Reference Range Interpretation Comme nts GLUCOSE (test code = 2217) 79 MG/DL BUN (test code = 2208) 14 MG/DL CREATININE (test code = 2214) 0.95 MG/DL eGFR AMER. (test cod e = 60890) 105 ML/MIN/1.73 eGFR NON- AMER. (test code = 19237) 91 ML/MIN/1.73 CALC BUN/CREAT (test code = [...] code = 2219) 23 U/L COMPREHENSIVE METABOLIC [id number] 00:00:00* Test Item Value Reference Range Interpretation Comme nts GLUCOSE (test code = 2217) 79 MG/DL BUN (test code = 2208) 14 MG/DL CREATININE (test code = 2214) 0.95 MG/DL eGFR AMER. (test cod e = 55421) 105 ML/MIN/1.73 eGFR NON- AMER. (test code = 23301) 91 ML/MIN/1.73 CALC BUN/CREAT (test code = [...] (test code = 2219) 23 U/L LIPID [id number] 00:00:00* Test Item Value Reference Range Interpretation Comme nts CHOLESTEROL (test code = 2210) 242 MG/DL TRIGLYCERIDES (test code = 2232) 233 MG/DL HDL CHOLESTEROL (test code = 2220) 52 MG/DL CALC LDL CHOL (test code = 2237) 143 MG/DL RISK RATIO LDL/HDL (test cod e = 2238) 2.76 RATIO LIPID [id number] 00:00:00* Test Item Value Reference Range Interpretation Comme nts CHOLESTEROL (test code = 2210) 242 MG/DL TRIGLYCERIDES (test code = 2232) 233 MG/DL HDL CHOLESTEROL (test code = 2220) 52 MG/DL CALC LDL CHOL (test code = 2237) 143 MG/DL RISK RATIO LDL/HDL (test cod e = 2238) 2.76 RATIO COMPREHENSIVE METABOLIC [id number] 00:00:00* Test Item Value Reference Range Interpretation Comme nts GLUCOSE (test code = 2217) 108 MG/DL BUN (test code = 2208) 16 MG/DL CREATININE (test code = 2214) 0.95 MG/DL eGFR AMER. (test cod e = 69607) 107 ML/MIN/1.73 eGFR NON- AMER. (test code = 03980) 92 ML/MIN/1.73 CALCULATED BUN/CREAT (test code = [...] (test code = 2219) 28 U/L LIPID [id number] 00:00:00* Test Item Value Reference Range Interpretation Comme nts CHOLESTEROL (test code = 2210) 249 MG/DL TRIGLYCERIDES (test code = 2232) 156 MG/DL HDL CHOLESTEROL (test code = 2220) 55 MG/DL CALCULATED LDL CHOL (test co de = 2237) 163 MG/DL RISK RATIO LDL/HDL (test cod e = 2238) 2.96 RATIO CBC W/AUTO [id number] 00:00:00* Test Item Value Reference Range Interpretation [...] (test code = 1015) 276 K/UL HEMOGLOBIN [id number] 00:00:00* Test Item Value Reference Range Interpretation Comme nts HEMOGLOBIN A1c (test code = 65123) 5.9 % [id number] 00:00:00* Test Item Value Reference Range Interpretation Comme nts TSH (test code = 2821) 2.1 UIU/ML COMPREHENSIVE METABOLIC [id number] 00:00:00* Test Item Value Reference Range Interpretation Comme nts GLUCOSE (test code = 2217) 108 MG/DL BUN (test code = 2208) 16 MG/DL CREATININE (test code = 2214) 0.95 MG/DL eGFR AMER. (test cod e = 83712) 107 ML/MIN/1.73 eGFR NON- AMER. (test code = 07692) 92 ML/MIN/1.73 CALCULATED BUN/CREAT (test code = [...] (test code = 2219) 28 U/L LIPID [id number] 00:00:00* Test Item Value Reference Range Interpretation Comme nts CHOLESTEROL (test code = 2210) 249 MG/DL TRIGLYCERIDES (test code = 2232) 156 MG/DL HDL CHOLESTEROL (test code = 2220) 55 MG/DL CALCULATED LDL CHOL (test co de = 2237) 163 MG/DL RISK RATIO LDL/HDL (test cod e = 2238) 2.96 RATIO CBC W/AUTO [id number] 00:00:00* Test Item Value Reference Range Interpretation [...] (test code = 1015) 276 K/UL HEMOGLOBIN [id number] 00:00:00* Test Item Value Reference Range Interpretation Comme nts HEMOGLOBIN A1c (test code = 31403) 5.9 % [id number] 00:00:00* Test Item Value Reference Range Interpretation Comme nts TSH (test code = 2821) 2.1 UIU/ML COMPREHENSIVE METABOLIC [id number] 00:00:00* Test Item Value Reference Range Interpretation Comme nts GLUCOSE (test code = 2217) 108 MG/DL BUN (test code = 2208) 16 MG/DL CREATININE (test code = 2214) 0.95 MG/DL eGFR AMER. (test cod e = 25794) 107 ML/MIN/1.73 eGFR NON- AMER. (test code = 38864) 92 ML/MIN/1.73 CALCULATED BUN/CREAT (test code = [...] (test code = 2219) 28 U/L LIPID [id number] 00:00:00* Test Item Value Reference Range Interpretation Comme nts CHOLESTEROL (test code = 2210) 249 MG/DL TRIGLYCERIDES (test code = 2232) 156 MG/DL HDL CHOLESTEROL (test code = 2220) 55 MG/DL CALCULATED LDL CHOL (test co de = 2237) 163 MG/DL RISK RATIO LDL/HDL (test cod e = 2238) 2.96 RATIO COMPREHENSIVE METABOLIC [id number] 00:00:00* Test Item Value Reference Range Interpretation Comme nts GLUCOSE (test code = 2217) 108 MG/DL BUN (test code = 2208) 16 MG/DL CREATININE (test code = 2214) 0.95 MG/DL eGFR AMER. (test cod e = 32963) 107 ML/MIN/1.73 eGFR NON- AMER. (test code = 52532) 92 ML/MIN/1.73 CALCULATED BUN/CREAT (test code = [...] code = 2219) 28 U/L CBC W/AUTO [id number] 00:00:00* Test Item Value Reference Range Interpretation [...] (test code = 1015) 276 K/UL HEMOGLOBIN [id number] 00:00:00* Test Item Value Reference Range Interpretation Comme [facility] HEMOGLOBIN A1c (test code = 01702) 5.9 % [id number] 00:00:00* Test Item Value Reference Range Interpretation Comme nts TSH (test code = 2821) 2.1 UIU/ML LIPID [id number] 00:00:00* Test Item Value Reference Range Interpretation Comme nts CHOLESTEROL (test code = 2210) 249 MG/DL TRIGLYCERIDES (test code = 2232) 156 MG/DL HDL CHOLESTEROL (test code = 2220) 55 MG/DL CALCULATED LDL CHOL (test co de = 2237) 163 MG/DL RISK RATIO LDL/HDL (test cod e = 2238) 2.96 RATIO CBC W/AUTO [id number] 00:00:00* Test Item Value Reference Range Interpretation [...] (test code = 1015) 276 K/UL HEMOGLOBIN [id number] 00:00:00* Test Item Value Reference Range Interpretation Comme nts HEMOGLOBIN A1c (test code = 00152) 5.9 % [id number] 00:00:00* Test Item Value Reference Range Interpretation Comme nts TSH (test code = 2821) 2.1 UIU/ML Notes Date/Time Note Provider Source 2024-04-24 16:00:08 Chief Complaint Patient presents with Follow-Up Visit Right knee. Patient requesting injection Joyce Pinedo MA I [facility] 2024-02-15 16:20:21 Chief Complaint Patient presents with Hospital F/U [facility] 2024-02-14 08:06:25 Chief Complaint Patient presents with Follow-Up Visit Bilateral knee pain, but right is worse per patient. Patient also complains of swelling Joyce Pinedo MA I [facility] 2023-10-14 14:33:37 Chief Complaint Patient presents with Burn Ximena Berumen [facility] 2023-10-14 11:03:10 Chief Complaint Patient presents with Follow-up bilateral knee pain Joyce Pinedo [facility] 2023-09-19 16:17:23 Chief Complaint Patient presents with Shortness of Breath C/O CPAP doesn't seem to work, pain all over his body all the time, Lower back and shoulders Tamra Burciaga LVN [facility] 2023-09-02 14:02:15 Chief Complaint Patient presents with OTHER Bilat knee follow up Sandra Hernandez MA I [facility]
--- NOTE | 2024-06-06 17:19 | RAD REPORT ---
EXAMINATION: ONE VIEW CHEST XR CLINICAL INDICATION: Male, 58 years old.COUGH TECHNIQUE: 1 View, AP supine, X-ray of the chest was performed. [id number]. COMPARISON: 01/20/2024 FINDINGS: Lungs and pleura: Clear lungs. No effusion. Heart and mediastinum: Normal heart size. Unremarkable mediastinal contours. Osseous structures: No acute abnormality. Tubes/lines: None Other: None. IMPRESSION: No acute intrathoracic abnormality.
[2024-06-06] MEDS ORDERED: MECLIZINE HCL 12.5 MG TAB ONE (17:35)
[2024-06-06] MEDS ORDERED: dexAMETHasone 10 MG/ML VIAL ONE (17:35)
[2024-06-06] MEDS ORDERED: KETOROLAC 30 MG/ML INJ ONE (17:35)
[2024-06-06] MEDS ORDERED: ONDANSETRON 4 MG/2 ML VIAL ONE (17:35)
[2024-06-06] MEDS ORDERED: NA CHLORIDE 0.9% 500 ML ONE (17:36)
--- NOTE | 2024-06-06 17:54 | RAD REPORT ---
EXAMINATION: CT HEAD WITHOUT CONTRAST CLINICAL INDICATION: Male, 58 years old.DIZZINESS TECHNIQUE: Axial CT images from the skull base to the vertex without intravenous contrast. Coronal an d sagittal reformatted images were created from the data set. One or more of the following dose reduction techniques were used: Automated exposure control, adjustment of the mA and/or kV according to patient size, and/or iterative reconstruction. Unless otherwise specified, incidental findings do not require dedicated imaging follow-up. [id number]. COMPARISON: 01/20/2024 FINDINGS: INTRACRANIAL: No acute intracranial hemorrhage. No hydrocephalus. No mass effect or midline shift. No significant white matter disease. VASCULATURE: No visualized abnormalities in the arteries or dural venous sinuses. SCALP/SKULL: No significant soft tissue or osseous abnormalities. SINUSES: The visualized paranasal sinuses and mastoid air cells are predominantly clear. IMPRESSION: No acute intracranial abnormality.
[2024-06-06 18:07] LABS: Absolute Basophils 0.1 K/uL (0-0.5); Absolute Eosinophils 0.6 K/uL (0-0.5); Absolute Lymphocytes (CBC) 2.5 K/uL (0.7-4.9); Absolute Monocytes 0.8 K/uL (0.1-1.3); Basophils % 0.8 % (0-1.3); Eosinophils % 7.1 % (0-4.4); Hematocrit 40.3 % (39.6-49.0); Hemoglobin 13.8 g/dL (13.6-17.9); Lymphocytes % 31.4 % (15.3-44.8); MCH 32.9 pg (27.0-35.0); MCHC 34.2 g/dL (32.0-36.0); MCV 96.3 fL (80-100); MPV 10.1 fL (7.6-11.3); Monocytes % 10.3 % (3.3-12.3); Neutrophils % 50.4 % (41.7-73.7); Nucleated Red Blood Cells % 0.1 % (0-0); Platelets 219 thou/uL (152-406); RBC Red Blood Cell Count 4.18 M/uL (4.33-5.43); Red Cell Distribution Width 13.2 % (12.1-15.2)
[2024-06-06 18:08] LABS: Protime INR 0.98
[2024-06-06 18:22] LABS: ALT/SGPT 31 U/L (16-61); AST/SGOT 14 U/L (15-37); Albumin 3.3 g/dL (3.4-5.0); Albumin/Globulin Ratio 0.8 (1.1-1.8); Alkaline Phosphatase 109 U/L (45-117); Anion Gap 6.2 mEq/L (5.0-15.0); BUN Blood Urea Nitrogen 22 mg/dL (7-18); Bicarbonate 30 mEq/L (21-32); Bilirubin Total 0.4 mg/dL (0.2-1.0); Globulin 3.9 g/dL (2.3-3.5); Glomerular Filtration Rate 82 ml/min (=/>90); Glucose Level 86 mg/dL (74-106); Lipase 95 U/L (13-75); Magnesium 2.1 mg/dL (1.6-2.4); NT PRO-BNP 91 pg/mL (<125); Potassium 3.2 mEq/L (3.5-5.1); Protein, Total 7.2 g/dL (6.4-8.2); Sodium Level 139 mEq/L (136-145); Troponin High Sensitivity 37.8 pg/mL (<58.9)
[2024-06-06 18:42] LABS: Bilirubin Direct < 0.2 mg/dL (0-0.2); Bilirubin Indirect, Calculated 0.2 mg/dL (0.2-0.8)
--- NOTE | 2024-06-06 18:44 | RAD REPORT ---
EXAMINATION: US CAROTID DUPLEX CLINICAL INDICATION: , 58 years old. DIZZINESS. TECHNIQUE: Real-time grayscale, color flow and spectral Doppler sonographic images were obtained of t extracranial carotid system using a linear transducer. [id number]. COMPARISON: No prior exam. FINDINGS: RIGHT: Common carotid artery: 75 cm/s Internal carotid artery: 82 cm/s External carotid artery: 93 cm/s Right ICA/CCA ratio: 1.1 Plaque Mild Calcified and noncalcified Vertebral artery Antegrade LEFT: Common carotid artery: 85 cm/s Internal carotid artery: 77 cm/s External carotid artery: 91 cm/s lEFT ICA/CCA ratio: 0.9 Plaque Mild Calcified and noncalcified Vertebral artery Antegrade IMPRESSION: No hemodynamically significant stenosis (greater than 50%) within the extracranial internal carotid a [facility].
--- NOTE | 2024-06-06 18:53 | ER ---
Nurse's Notes [facility] Name: Soy Frias Age: 58 yrs Sex: Male : 1965 Arrival Date: 06/06/2024 Time: 16:26 Bed 3 Private MD: Diagnosis: Benign paroxysmal vertigo, unspecified ear;Dizziness and giddiness;Obesity, unspecified;Hypokalemia Presentation: 06/06 16:34 Chief complaint: Patient states: I've had a problem with dizziness for 3 years, I've tm6 gone to my doctor and specialists and they don't know why I'm dizzy. This time I started getting dizzy 2 days ago. And the back of my neck hurts 06/14. Coronavirus screen: Vaccine status: Patient reports receiving the 2nd dose of the covid vaccine. Ebola Screen: Patient negative for fever greater than or equal to 101.5 degrees Fahrenheit, and additional compatible Ebola Virus Disease symptoms Patient denies exposure to infectious person. Patient denies travel to an Ebola-affected area in the 21 days before illness onset. No symptoms or risks identified at this time. Initial Sepsis Screen: Does the patient meet any 2 criteria? No. Patient's initial sepsis screen is negative. Does the patient have a suspected source of infection? No. Patient's initial sepsis screen is negative. Risk Assessment: Do you want to hurt yourself or someone else? Patient reports no desire to harm self or others. Onset of symptoms was June 03, 2024. 16:34 Method Of Arrival: Wheelchair tm6 16:34 Acuity: JANIS 3 tm6 Triage Assessment: 16:36 General: Appears in no apparent distress. Behavior is cooperative. Pain: Complains of tm6 pain in neck Pain currently is 10 out of 10 on a pain scale. EENT: No signs and/or symptoms were reported regarding the EENT system. Neuro: Level of Consciousness is awake, alert, obeys commands, Oriented to person, place, time, situation, Reports dizziness, since two days ago. Cardiovascular: Patient's skin is warm and dry. Respiratory: Airway is patent Respiratory effort is even, unlabored, Respiratory pattern is regular, symmetrical. GI: No signs and/or symptoms were reported involving the gastrointestinal system. Abdomen is round non-distended. : No signs and/or symptoms were reported regarding the genitourinary system. Derm: No signs and/or symptoms reported regarding the dermatologic system. Musculoskeletal: Reports pain in neck Pain is 10 out of 10 on a pain scale. 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 - Infectious Disease History:: Denies. - Social history:: Smoking status: Patient denies any tobacco usage or history of. Patient/guardian denies using alcohol. Screenin:10 [facility] ED Fall Risk Assessment (Adult) History of falling in the last 3 months, ph including since admission No falls in past 3 months (0 pts) Confusion or Disorientation No (0 pts) Intoxicated or Sedated No (0 pts) Impaired Gait Yes (1 pt) Mobility Assist Device Used No (0 pt) Altered Elimination No (0 pt) Score/Fall Risk Level 0 - 2 = Low Risk Oriented to surroundings, Maintained a safe environment, Hourly rounding (assess needs \T\ fall precautionary measures) done. Abuse screen: Denies threats or abuse. Denies injuries from another. Nutritional screening: No deficits noted. Tuberculosis screening: No symptoms or risk factors identified. Assessment: 18:09 Pain: Complains of pain in base of the skull. Neuro: Level of Consciousness is awake, ph alert, obeys commands, Oriented to person, place, time, situation. Neuro: Reports dizziness, headache occipital area, photophobia. Cardiovascular: Capillary refill < 3 seconds in bilateral fingers Patient's skin is warm and dry. Respiratory: Airway is patent Respiratory effort is even, unlabored, Respiratory pattern is regular, symmetrical. GI: Reports nausea. Derm: Skin is pink, warm \T\ dry. Musculoskeletal: Circulation, motion, and sensation intact. Range of motion: intact in all extremities. Vital Signs: 16:34 BP 122 / 81; Pulse 77; Resp 19; Temp 98.6(O); Pulse Ox 81% on R/A; MAP 91 mmHg; Weight tm6 117.93 kg; Height 5 ft. 7 in. ; Pain 10/10; 18:13 BP 134 / 82; Pulse 57; Resp 18; Pulse Ox 100% on R/A; ph 19:16 BP 141 / 79; Pulse 78; Resp 18; Pulse Ox 98% ; cp4 16:34 Body Mass Index 40.72 (117.93 kg, 170.18 cm) tm6 16:34 Pain Scale: Adult tm6 ED Course: 16:28 Patient arrived in ED. ra3 16:36 Triage completed. tm6 16:36 Arm band placed on right wrist. tm6 16:39 Momo Pettit MD is Attending Physician. abraham 16:42 Sarah Patel, RN is Primary Nurse. ph 17:01 XRAY Chest (1 view) In Process Unspecified. EDMS 17:43 CT Head Brain wo Cont In Process Unspecified. EDMS 17:50 Initial lab(s) drawn, by me, sent to lab. Inserted saline lock: 22 gauge in right ph antecubital area, using aseptic technique. Blood collected. Flushed with 10 mL NS. 18:11 Patient has correct armband on for positive identification. Bed in low position. Call light in reach. Side rails up X 1. Pulse ox on. NIBP on. 18:27 US Carotid Artery Bilateral In Process Unspecified. EDMS 18:52 Jorge Tracey MD is Referral Physician. [facility] 18:52 Dedra Damon MD is Referral Physician. [facility] 19:58 Provided Education on: vertigo. cp4 19:58 No provider procedures requiring assistance completed. intact, bleeding controlled, No cp4 redness/swelling at site. Pressure dressing applied. Administered Medications: 18:12 Drug: NS 0.9% IV 500 ml IV at bolus once Route: IV; Rate: bolus; Site: right ph antecubital; 18:12 Drug: Decadron - Dexamethasone IVP 10 mg IVP once Route: IVP; Site: right antecubital; ph 18:38 Follow up: Response: No adverse reaction bp 18:12 Drug: Meclizine PO 50 mg PO once Route: PO; ph 18:38 Follow up: Response: No adverse reaction bp 18:12 Drug: Ondansetron IVP 4 mg IVP once; over 2 minutes Route: IVP; Site: right antecubital;ph 18:38 Follow up: Response: No adverse reaction bp 18:12 Drug: Ketorolac IVP 30 mg IVP once Route: IVP; Site: right antecubital; ph 18:37 Follow up: Response: No adverse reaction bp 18:37 Drug: NS 0.9% IV 1000 ml IV at 125 ml/hr continuous Route: IV; Rate: 125 ml/hr; Site: bp right antecubital; 19:26 Drug: Potassium PO Effervescent Tablet 25 mEq PO once; dissolve in 4 ounces of water or cp4 juice Route: PO; 19:31 Follow up: Response: No adverse reaction cp4 Medication: 18:11 VIS not applicable for this client. ph Outcome: 18:52 Discharge ordered by . abraham 19:58 Discharged to home via wheelchair, cp4 19:58 Condition: stable 19:58 Discharge instructions given to patient, Instructed on discharge instructions, follow up and referral plans. medication usage, Demonstrated understanding of instructions, follow-up care, medications, Prescriptions given X 3, 19:59 Patient left the ED. cp4 Signatures: Dispatcher [employer] EDMS Momo Pettit MD MD cha Hall, Patricia, RN RN Brock Arriaga RN RN bp Potter, Christina 4 Jenae Roberts RN RN 6 Nelda Metcalf 3
--- NOTE | 2024-06-06 18:53 | EDPHYS ---
Physician Documentation [facility] Name: Soy Frias Age: 58 yrs Sex: Male : 1965 Arrival Date: 06/06/2024 Time: 16:26 Bed 3 Private MD: KIET Physician Momo Pettit HPI: 06/06 17:32 This 58 yrs old Male presents to ER via Wheelchair with complaints of abraham Dizziness. 17:32 The patient presents with dizziness, lightheadedness, sense of spinning, vertigo. abraham Onset: The symptoms/episode began/occurred 1 day(s) ago. Context: occurred at an unknown location. Modifying factors: The symptoms are alleviated by nothing, the symptoms are aggravated by movement of head, changing position. 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 - Infectious Disease History:: Denies. - Social history:: Smoking status: Patient denies any tobacco usage or history of. Patient/guardian denies using alcohol. ROS: 17:42 Constitutional: Negative for fever, chills, and weight loss, Eyes: Negative for injury, abraham pain, redness, and discharge, ENT: Negative for injury, pain, and discharge, Neck: Negative for injury, pain, and swelling, Cardiovascular: Negative for chest pain, palpitations, and edema, Respiratory: Negative for shortness of breath, cough, wheezing, and pleuritic chest pain, Abdomen/GI: Negative for abdominal pain, nausea, vomiting, diarrhea, and constipation, Back: Negative for injury and pain, : Negative for injury, bleeding, discharge, and swelling, MS/Extremity: Negative for injury and deformity, Skin: Negative for injury, rash, and discoloration, Psych: Negative for depression, anxiety, suicide ideation, homicidal ideation, and hallucinations, Allergy/Immunology: Negative for hives, rash, and allergies, Endocrine: Negative for neck swelling, polydipsia, polyuria, polyphagia, and marked weight changes, Hematologic/Lymphatic: Negative for swollen nodes, abnormal bleeding, and unusual bruising, 17:42 Neuro: Positive for dizziness, Exam: 17:42 Constitutional: This is a well developed, well nourished patient who is awake, alert, abraham and in no acute distress. Head/Face: Normocephalic, atraumatic. Eyes: Pupils equal round and reactive to light, extra-ocular motions intact. Lids and lashes normal. Conjunctiva and sclera are non-icteric and not injected. Cornea within normal limits. Periorbital areas with no swelling, redness, or edema. ENT: Nares patent. No nasal discharge, no septal abnormalities noted. Tympanic membranes are normal and external auditory canals are clear. Oropharynx with no redness, swelling, or masses, exudates, or evidence of obstruction, uvula midline. Mucous membranes moist. Neck: Trachea midline, no thyromegaly or masses palpated, and no cervical lymphadenopathy. Supple, full range of motion without nuchal rigidity, or vertebral point tenderness. No Meningismus. Chest/axilla: Normal chest wall appearance and motion. Nontender with no deformity. No lesions are appreciated. Cardiovascular: Regular rate and rhythm with a normal S1 and S2. No gallops, murmurs, or rubs. Normal PMI, no JVD. No pulse deficits. Respiratory: Lungs have equal breath sounds bilaterally, clear to auscultation and percussion. No rales, rhonchi or wheezes noted. No increased work of breathing, no retractions or nasal flaring. Abdomen/GI: Soft, non-tender, with normal bowel sounds. No distension or tympany. No guarding or rebound. No evidence of tenderness throughout. Back: No spinal tenderness. No costovertebral tenderness. Full range of motion. Male : Normal genitalia with no discharge or lesions. Skin: Warm, dry with normal turgor. Normal color with no rashes, no lesions, and no evidence of cellulitis. MS/ Extremity: Pulses equal, no cyanosis. Neurovascular intact. Full, normal range of motion. Neuro: Awake and alert, GCS 15, oriented to person, place, time, and situation. Cranial nerves II-XII grossly intact. Motor strength 5/5 in all extremities. Sensory grossly intact. Cerebellar exam normal. Normal gait. Psych: Awake, alert, with orientation to person, place and time. Behavior, mood, and affect are within normal limits. 17:42 ECG was reviewed by the Attending Physician. 17:42 Musculoskeletal/extremity: DVT Exam: No signs of deep vein thrombosis. no pain, no swelling, no tenderness, negative Homans' sign noted on exam, no appreciated bluish discoloration, no erythema, no increased warmth, 19:32 ECG was reviewed by the Attending Physician. [facility] Vital Signs: 16:34 BP 122 / 81; Pulse 77; Resp 19; Temp 98.6(O); Pulse Ox 81% on R/A; MAP 91 mmHg; Weight tm6 117.93 kg; Height 5 ft. 7 in. ; Pain 10/10; 18:13 BP 134 / 82; Pulse 57; Resp 18; Pulse Ox 100% on R/A; ph 19:16 BP 141 / 79; Pulse 78; Resp 18; Pulse Ox 98% ; cp4 16:34 Body Mass Index 40.72 (117.93 kg, 170.18 cm) tm6 16:34 Pain Scale: Adult tm6 MDM: 16:39 Patient medically screened. abraham 17:44 Differential diagnosis: cardiac arrhythmia, CVA, generalized weakness, hypovolemia, abraham idiopathic dizziness, near-syncope, TIA. Data reviewed: vital signs, nurses notes, lab test result(s), EKG, radiologic studies, CT scan, doppler. Consideration of Admission/Observation Escalation of care including admission/observation considered. I considered the following discharge prescriptions or medication management in the emergency department Medications were administered in the Emergency Department. See MAR. Independent interpretation of the following test(s) in the Emergency Department EKG: See my EKG interpretation above. Test considered but Not performed: MRI: NO MRI BRAIN. Care significantly affected by the following chronic conditions: Hypertension, Obesity, CVA, HIGH CHOLESTEROL. Counseling: I had a detailed discussion with the patient and/or guardian regarding the historical points, exam findings, and any diagnostic results supporting the discharge/admit diagnosis, lab results, radiology results, the need for outpatient follow up, for definitive care, an ENT specialist, a family practitioner. 06/06 16:40 Order name: Basic Metabolic Panel; Complete Time: 18:[address] [facility] 06/06 16:40 Order name: CBC with Diff; Complete Time: 18:[address] [facility] 06/06 16:40 Order name: LFT's; Complete Time: 18:[address] [facility] 06/06 16:40 Order name: Magnesium; Complete Time: 18:[address] [facility] 06/06 16:40 Order name: NT PRO-BNP; Complete Time: 18:[address] [facility] 06/06 16:40 Order name: PT-INR; Complete Time: 18:[address] [facility] 06/06 16:40 Order name: Troponin HS; Complete Time: 18:[address] [facility] 06/06 16:40 Order name: Lipase; Complete Time: 18:[address] [facility] 06/06 16:40 Order name: XRAY Chest (1 view); Complete Time: 17:[address] [facility] 06/06 16:40 Order name: CT Head Brain wo Cont; Complete Time: 18:[address] [facility] 06/06 17:35 Order name: US Carotid Artery Bilateral; Complete Time: 18:[address] [facility] 06/06 16:40 Order name: EKG; Complete Time: 16:[address] [facility] 06/06 16:40 Order name: Cardiac monitoring; Complete Time: 18:[address] [facility] 06/06 16:40 Order name: EKG - Nurse/Tech; Complete Time: 18:[address] [facility] 06/06 16:40 Order name: IV Saline Lock; Complete Time: 18:[address] [facility] 06/06 16:40 Order name: Labs collected and sent; Complete Time: 18:[address] [facility] 06/06 16:40 Order name: O2 Per Protocol; Complete Time: 18:[address] [facility] 06/06 16:40 Order name: O2 Sat Monitoring; Complete Time: 18:[address] [facility] EC:32 Rate is 64 beats/min. Rhythm is regular. QRS [place] is Normal. [place] interval is normal. QRS abraham interval is normal. QT interval is normal. No Q waves. T waves are Normal. No ST changes noted. Clinical impression: NSR w/ Non-specific ST/T Changes and No evidence of ischemia. Interpreted by me. Reviewed by me. Administered Medications: 18:12 Drug: NS 0.9% IV 500 ml IV at bolus once Route: IV; Rate: bolus; Site: right ph antecubital; 18:12 Drug: Decadron - Dexamethasone IVP 10 mg IVP once Route: IVP; Site: right antecubital; ph 18:38 Follow up: Response: No adverse reaction bp 18:12 Drug: Meclizine PO 50 mg PO once Route: PO; ph 18:38 Follow up: Response: No adverse reaction bp 18:12 Drug: Ondansetron IVP 4 mg IVP once; over 2 minutes Route: IVP; Site: right antecubital;ph 18:38 Follow up: Response: No adverse reaction bp 18:12 Drug: Ketorolac IVP 30 mg IVP once Route: IVP; Site: right antecubital; ph 18:37 Follow up: Response: No adverse reaction bp 18:37 Drug: NS 0.9% IV 1000 ml IV at 125 ml/hr continuous Route: IV; Rate: 125 ml/hr; Site: bp right antecubital; 19:26 Drug: Potassium PO Effervescent Tablet 25 mEq PO once; dissolve in 4 ounces of water or cp4 juice Route: PO; 19:31 Follow up: Response: No adverse reaction cp4 Disposition Summary: 06/06/24 18:52 Discharge Ordered Notes: Location: Home abraham Problem: new abraham Symptoms: have improved abraham Condition: Stable abraham Diagnosis - Benign paroxysmal vertigo, unspecified ear abraham - Dizziness and giddiness abraham - Obesity, unspecified abraham - Hypokalemia abraham Followup: abraham - With: Private Physician - When: 2 - 3 days - Reason: Recheck today's complaints, Continuance of care, Re-evaluation by your physician Followup: abraham - With: Jorge Tracey MD - When: 2 - 3 days - Reason: Recheck today's complaints, Re-evaluation by your physician Followup: abraham - With: Dedra Damon MD - When: 2 - 3 days - Reason: Recheck today's complaints, Re-evaluation by your physician Discharge Instructions: - Discharge Summary Sheet abraham - Benign Positional Vertigo abraham - Potassium Content of Foods abraham - Dizziness abraham - Vertigo, Xcoh-sd-Itci abraham - Aspirin and Your Heart abraham - Hypokalemia abraham - Obesity, Adult, [id number] [facility] Forms: - Medication Reconciliation Form abraham - Antibiotic Education abraham - Prescription Opioid Use abraham - Patient Portal Instructions [facility] - Leadership Thank You Letter [facility] Prescriptions: - dexamethasone 4 mg Oral tablet - take 1 tablet ORAL route daily; 3 tablet; Refills: 0, Product Selection [facility] Permitted - ondansetron 4 mg Oral Tablet,disintegrating - take 1 tablet ORAL route every 6-8 hours for 5 days; 20 tablet; Refills: 0, [facility] Product Selection Permitted - Meclizine 25 mg Oral Tablet - take 1 tablet ORAL route every 8 hours As needed; 30 tablet; Refills: 0, [facility] Product Selection Permitted Signatures: Dispatcher [employer] Momo Brooke MD MD cha Hall, Patricia RN RN Brock Arriaga RN RN Roxanna Ross 4 Jenae Roberts RN RN tm6
[2024-06-06] MEDS ORDERED: POTASSIUM 25 MEQ EFFERV TAB ONE (19:19)
[2024-06-07 11:20] VITALS: TEMP 98.6
[2024-06-07 11:25] VITALS: BP 141/79; O2SAT 98
--- NOTE | 2024-06-08 16:40 | EKG ---
Test Date: 2024-06-06 Test Time: 18:26:32 Mailroom Assistant: BP MEASUREMENT RESULTS: Intervals: Rate: 64 SC: 156 QRSD: 100 QT: 420 QTc: 433 [place]: P: 59 SC: 156 QRS: 47 T: 12 INTERPRETIVE STATEMENTS: Normal sinus rhythm Cannot rule out Anterior infarct, age undetermined Abnormal ECG Compared to ECG 01/20/2024 13:20:07 Myocardial infarct finding now present Electronically Signed On 06-08-24 16:34:03 CDT by Israel Carroll
== END 2024-06-06 19:59 | disposition home or self-care (01) ==
LOC: ER 16:26
DX: H81.10 Benign paroxysmal vertigo, unspecified ear (principal); I10 Essential (primary) hypertension; I69.954 Hemiplegia and hemiparesis following unspecified cerebrovascular disease affecting left non-dominant side; E87.6 Hypokalemia; E66.9 Obesity, unspecified; Z68.41 Body mass index [BMI] 40.0-44.9, adult; E78.00 Pure hypercholesterolemia, unspecified
CPT/HCPCS: 93005; 85025; 80048; 36415; 83735; 85610; 80076; 84484; 83690; 83880; 70450; 71045; 93880; 96375; 96374; 99284; J8597; J1100; J2405; J7040

== ENCOUNTER 2024-09-05 08:54 | Emergency (ER) | payer OTHER ==
--- OUTSIDE RECORDS SUMMARY | 2024-09-05 08:57 | XMS REPORT | Continuity of Care Document ---
Author Name Unknown Address [address] [place] [address] [facility] thconnect Address [address] [place] [address] Care Team Providers Care Bark Press Operator Name Role Phone Unavailable Unavailable Unavailable Results Test Description Test Time Test Comments Results Result Co mments Source PSA, [id number] 04:57:49* Test Item Value Reference Range Interpretation Comme nts PSA, TOTAL (test code = 2606) 1.93 NG/ML See_Comment NOTE: Methodolog y is Corazon Nakul Electrochemiluminescence Immunoassay traceable to WHO reference standard 96/760. [Automated message] The system which generated this result transmitted reference range: <=4.00. The reference range was not used to interpret this result as normal/abnormal. CBC W/AUTO DIFF WITH [id number] 03:27:34* Test Item Value Reference Range Interpretation [...] = 1065) 0.0 /100 WBC'S See_Comment [Automated Drillstera ge] The system which generated this result [...] 0.00-0.10 ABS NUCLEATED RBCS (test code = 05209) 0.00 K/UL 0.00-0.11 LIPID [id number] 03:20:10* Test Item Value Reference Range Interpretation [...] SPECIMENS. FOR MOREINFORMATION, SEE CLIENT ANNOUNCEMENT AT [email or web address] RATIO LDL/HDL (test code = 2238) 2.20 RATIO <3.55
[2024-09-05] MEDS ORDERED: NA CHLORIDE 0.9% 500 ML ONE (09:27)
[2024-09-05] MEDS ORDERED: ONDANSETRON 4 MG/2 ML VIAL ONE (09:27)
[2024-09-05] MEDS ORDERED: ACETAMINOPHEN 500 MG TAB ONE (09:27)
[2024-09-05] MEDS ORDERED: ALBUTEROL 2.5 MG/3 ML NEB SOL ONE (09:27)
[2024-09-05] MEDS ORDERED: IPRATROPIUM BROM 0.5MG/2.5ML ONE (09:27)
[2024-09-05] MEDS ORDERED: KETOROLAC 30 MG/ML INJ ONE (09:27)
[2024-09-05 09:45] LABS: Absolute Eosinophils 0.1 K/uL (0-0.5); Absolute Lymphocytes (CBC) 0.8 K/uL (0.7-4.9); Absolute Neutrophil 4.8 K/uL (1.8-8.0); Basophils % 0.6 % (0-1.3); Eosinophils % 2.1 % (0-4.4); Hematocrit 42.7 % (39.6-49.0); Hemoglobin 14.4 g/dL (13.6-17.9); Lymphocytes % 12.1 % (15.3-44.8); MCH 32.4 pg (27.0-35.0); MCHC 33.7 g/dL (32.0-36.0); MCV 96.3 fL (80-100); MPV 9.3 fL (7.6-11.3); Monocytes % 14.6 % (3.3-12.3); Neutrophils % 70.6 % (41.7-73.7); Nucleated Red Blood Cells % 0.2 % (0-0); Platelets 221 thou/uL (152-406); RBC Red Blood Cell Count 4.44 M/uL (4.33-5.43); Red Cell Distribution Width 12.9 % (12.1-15.2)
[2024-09-05 09:50] LABS: Anion Gap 8.3 mEq/L (5.0-15.0); Potassium 3.3 mEq/L (3.5-5.1)
[2024-09-05 09:51] LABS: SARS-CoV-2 Antigen CONTROL BLUE LINE VIS/BG OK; SARS-CoV-2 Antigen Rapid Res Negative (Negative)
--- NOTE | 2024-09-05 10:01 | EDPHYS ---
Physician Documentation [facility] Name: Soy Frias Age: 59 yrs Sex: Male : 1965 Arrival Date: 09/05/2024 Time: 08:54 Bed 5 Private MD: ED Physician Estrada Cheek HPI: 09/05 09:12 This 59 yrs old Male presents to ER via Unassigned with complaints of Flu ec2 Symptoms. 09:12 Patient arrives today for upper respiratory symptoms. Cough and cold symptoms along ec2 with headache, body aches, subjective fevers and chills along with nausea and vomiting. Patient reports feeling unwell for the past 5 days.. 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 - Infectious Disease History:: Denies. - Social history:: Smoking status: Patient denies any tobacco usage or history of. ROS: 09:12 Constitutional: as per hpi ec2 Exam: 09:12 Constitutional: GEN: NAD Head: atraumatic Eyes: EOMI Ears: External ears are ec2 normal. CV: regular rate LUNGS: no respiratory distress, no wheezes or rales or rhonchi. ABD: non-distended SKIN: no evidence of rashes MSK: no evidence of trauma Vital Signs: 09:12 BP 152 / 105; ec2 09:14 BP 152 / 105; Pulse 97; Resp 18; Temp 101.1; Pulse Ox 93% on R/A; Weight 122.47 kg; ll1 Height 5 ft. 7 in. ; Pain 10/10; 10:07 BP 160 / 90; Pulse 90; Resp 18; Pulse Ox 99% on R/A; ll1 10:28 BP 138 / 90; Pulse 91; Resp 19; Temp 98.7(O); Pulse Ox 95% on R/A; MAP 105 mmHg; Pain tm6 0/10; 09:14 Body Mass Index 42.29 (122.47 kg, 170.18 cm) ll1 09:14 Pain Scale: Adult ll1 10:28 Pain Scale: Adult tm6 MDM: 09:08 Medical Screening Exam initiated ec2 09:13 Data reviewed: vital signs, nurses notes. ED course: Patient arrives today for upper ec2 respiratory symptoms ongoing for the past 5 days. Examination reveals nontoxic individual with reassuring pulmonary examination we will obtain viral swabs, chest x-ray, lab work.. 10:00 ED course: Labs show slight hypokalemia, patient is flu positive. Will discharge home ec2 have the patient follow-up with PCP. Return precautions given. Chest x-ray independently reviewed and interpreted by me, shows no acute intrathoracic process.. 09/05 09:11 Order name: CBC with Diff; Complete Time: 09:52 ec2 09/05 09:11 Order name: BMP; Complete Time: 09:52 ec2 09/05 09:11 Order name: Influenza Screen (a \T\ B); Complete Time: 09:59 ec2 09/05 09:11 Order name: SARS RAPID; Complete Time: 09:52 ec2 09/05 09:11 Order name: CXR XRAY ec2 09/05 09:11 Order name: IV; Complete Time: 09:30 ec2 Administered Medications: 09:38 Drug: NS 0.9% IV 500 ml 500 ml IV at 1 bolus once; to be given as a bolus over 30 ll1 minutes Volume: 500 ml; Route: IV; Rate: 1 bolus; Site: right antecubital; 10:18 Follow up: Response: No adverse reaction; IV Status: Completed infusion; IV Intake: ll1 500ml 09:38 Drug: Ondansetron IVP 4 mg IVP once; over 2 minutes Route: IVP; Site: right antecubital;ll1 10:19 Follow up: Response: No adverse reaction; Nausea is decreased ll1 09:38 Drug: Ketorolac IVP 15 mg IVP once {Note: pain 10/10 RASS 0.} Route: IVP; Site: right ll1 antecubital; 10:19 Follow up: Response: No adverse reaction; Pain is decreased ll1 09:38 Drug: DuoNeb Nebulize (3:1) (2.5 mg - 0.5 mg) 3 ml Nebulizer once Route: Nebulizer; ll1 10:19 Follow up: Response: No adverse reaction ll1 09:38 Drug: Acetaminophen PO 1000 mg PO once Route: PO; ll1 10:19 Follow up: Response: No adverse reaction ll1 10:16 Drug: Oseltamivir PO 75 mg PO once Route: PO; tm6 10:28 Follow up: Response: No adverse reaction tm6 Disposition Summary: 09/05/24 10:00 Discharge Ordered Notes: Location: Home ec2 Condition: Stable ec2 Diagnosis - Influenza due to identified novel influenza A virus ec2 Followup: ec2 - With: Private Physician - When: - Reason: Re-evaluation by your physician Discharge Instructions: - Discharge Summary Sheet ec2 - Influenza, Adult ec2 Forms: - Work release form ec2 - Medication Reconciliation Form ec2 - Antibiotic Education ec2 - Prescription Opioid Use ec2 - Patient Portal Instructions ec2 - Leadership Thank You Letter ec2 Prescriptions: - Zofran 4 mg Oral Tablet - take 1 tablet ORAL route every 12 hours As needed; 20 tablet; Refills: 0, ec2 Product Selection Permitted - Tessalon Perles 100 mg Oral Capsule - take 1 capsule ORAL route every 8 hours As needed; 15 capsule; Refills: 0, ec2 Product Selection Permitted - Tamiflu 75 mg Oral capsule - take 1 tablet ORAL route every 12 hours for 5 days; 10 tablet; Refills: 0, ec2 Product Selection Permitted Signatures: Dispatcher [employer] EDCarlos Solorzano RN RN ll1 Estrada Cheek MD MD ec2 Jenae Roberts RN RN tm6 Corrections: (The following items were deleted from the chart) 09:12 09:12 CBC+H.LAB.BRZ ordered. EDMS EDMS 09:12 09:12 BASIC METABOLIC PANEL+C.LAB.BRZ ordered. EDMS EDMS 09:12 09:12 Influenza Screen (A \T\ B)+BA.LAB.BRZ ordered. EDMS EDMS 09:12 09:12 SARS-COV-2 Antigen Rapid+I.LAB.BRZ ordered. EDMS EDMS 09:12 09:12 Chest Single View+RAD.RAD.BRZ ordered. EDMS EDMS
--- NOTE | 2024-09-05 10:01 | ER ---
Nurse's Notes [facility] Name: Soy Frias Age: 59 yrs Sex: Male : 1965 Arrival Date: 09/05/2024 Time: 08:54 Bed 5 Private MD: Diagnosis: Influenza due to identified novel influenza A virus Presentation: 09/05 09:14 Chief complaint: Patient states: Cough, congestion, ORTIZ, body aches, nausea, diarrhea ll1 for 5 days. Coronavirus screen: Client denies travel out of the [place] in the last 14 days. congestion, cough unrelated to allergies, diarrhea, fatigue, fever, headache, muscle pain, nausea, Client presents with at least one sign or symptom that may indicate coronavirus-19. Standard/surgical mask placed on the client. Ebola Screen: Patient denies travel to an Ebola-affected area in the 21 days before illness onset. Initial Sepsis Screen: Does the patient meet any 2 criteria? No. Patient's initial sepsis screen is negative. Does the patient have a suspected source of infection? No. Patient's initial sepsis screen is negative. Risk Assessment: Do you want to hurt yourself or someone else? Patient reports no desire to harm self or others. Onset of symptoms was September 01, 2024. 09:14 Method Of Arrival: Ambulatory ll1 09:14 Acuity: JANIS 3 ll1 Triage Assessment: 09:13 General: Appears distressed, uncomfortable, Behavior is calm, cooperative, appropriate ll1 for age, Reports chills for fever for feeling ill for fatigue for. EENT: Reports nasal congestion. Neuro: Reports headache weakness. Cardiovascular: Reports fatigue, nausea. Respiratory: Reports cough that is. GI: Reports diarrhea, nausea. Musculoskeletal: Reports body aches. 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 - Infectious Disease History:: Denies. - Social history:: Smoking status: Patient denies any tobacco usage or history of. Screenin:40 [facility] ED Fall Risk Assessment (Adult) History of falling in the last 3 months, ll1 including since admission No falls in past 3 months (0 pts) Confusion or Disorientation No (0 pts) Intoxicated or Sedated No (0 pts) Impaired Gait Yes (1 pt) Mobility Assist Device Used Yes (1 pt) Altered Elimination No (0 pt) Score/Fall Risk Level 0 - 2 = Low Risk Maintained a safe environment, Hourly rounding (assess needs \T\ fall precautionary measures) done. Abuse screen: Denies threats or abuse. Nutritional screening: No deficits noted. Tuberculosis screening: No symptoms or risk factors identified. Assessment: 10:07 Reassessment: No changes from previously documented assessment. Patient and/or family ll1 updated on plan of care and expected duration. Pain level reassessed. Patient is alert, oriented x 3, equal unlabored respirations, skin warm/dry/pink. 10:28 Reassessment: Patient and/or family updated on plan of care and expected duration. Pain tm6 level reassessed. Patient is alert, oriented x 3, equal unlabored respirations, skin warm/dry/pink. Pain: Complains of pain in body aches. Vital Signs: 09:12 BP 152 / 105; ec2 09:14 BP 152 / 105; Pulse 97; Resp 18; Temp 101.1; Pulse Ox 93% on R/A; Weight 122.47 kg; ll1 Height 5 ft. 7 in. ; Pain 10/10; 10:07 BP 160 / 90; Pulse 90; Resp 18; Pulse Ox 99% on R/A; ll1 10:28 BP 138 / 90; Pulse 91; Resp 19; Temp 98.7(O); Pulse Ox 95% on R/A; MAP 105 mmHg; Pain tm6 0/10; 09:14 Body Mass Index 42.29 (122.47 kg, 170.18 cm) ll1 09:14 Pain Scale: Adult ll1 10:28 Pain Scale: Adult tm6 ED Course: 08:57 Patient arrived in ED. mr 08:58 Estrada Cheek MD is Attending Physician. ec2 09:13 Carlos Ivan, RON is Primary Nurse. ll1 09:13 Arm band placed on Patient placed in an exam room, on a stretcher. ll1 09:15 Triage completed. ll1 09:30 Influenza Screen (a \T\ B) Sent. ll1 09:30 SARS RAPID Sent. ll1 09:32 Provided Education on: ER procedures and process. ll1 09:32 Initial lab(s) drawn, by me, sent to lab. COVID swab sent to lab. Flu and/or RSV swab ll1 sent to lab. Inserted saline lock: 22 gauge in right antecubital area, using aseptic technique. Blood collected. Flushed with 10 mL NS. 09:41 Patient has correct armband on for positive identification. Bed in low position. Client ll1 placed on continuous cardiac and pulse oximetry monitoring. NIBP monitoring applied. :41 Door closed. Lights dimmed. Warm blanket given. Verbal reassurance given. ll1 09:42 CXR XRAY In Process Unspecified. EDMS 10:18 Report given to RON Emanuel. ll1 10:29 No provider procedures requiring assistance completed. IV discontinued, intact, tm6 bleeding controlled, No redness/swelling at site. Pressure dressing applied. Administered Medications: 09:38 Drug: NS 0.9% IV 500 ml 500 ml IV at 1 bolus once; to be given as a bolus over 30 ll1 minutes Volume: 500 ml; Route: IV; Rate: 1 bolus; Site: right antecubital; 10:18 Follow up: Response: No adverse reaction; IV Status: Completed infusion; IV Intake: ll1 500ml 09:38 Drug: Ondansetron IVP 4 mg IVP once; over 2 minutes Route: IVP; Site: right antecubital;ll1 10:19 Follow up: Response: No adverse reaction; Nausea is decreased ll1 09:38 Drug: Ketorolac IVP 15 mg IVP once {Note: pain 10/10 RASS 0.} Route: IVP; Site: right ll1 antecubital; 10:19 Follow up: Response: No adverse reaction; Pain is decreased ll1 09:38 Drug: DuoNeb Nebulize (3:1) (2.5 mg - 0.5 mg) 3 ml Nebulizer once Route: Nebulizer; ll1 10:19 Follow up: Response: No adverse reaction ll1 09:38 Drug: Acetaminophen PO 1000 mg PO once Route: PO; ll1 10:19 Follow up: Response: No adverse reaction ll1 10:16 Drug: Oseltamivir PO 75 mg PO once Route: PO; tm6 10:28 Follow up: Response: No adverse reaction tm6 Medication: 09:41 VIS not applicable for this client. ll1 Intake: 10:18 IV: 500ml; Total: 500ml. ll1 Outcome: 10:00 Discharge ordered by . ec2 10:29 Discharged to home ambulatory, tm6 10:29 Condition: stable 10:29 Discharge instructions given to patient, Instructed on discharge instructions, follow up and referral plans. medication usage, Demonstrated understanding of instructions, follow-up care, medications, Prescriptions given X 3, 10:29 Patient left the ED. tm6 Signatures: Dispatcher [employer] EDElza Das, Reg Reg mr Carlos Ivan, RN RN ll1 Estrada Cheek MD MD ec2 Jenae Roberts RN RN tm6
[2024-09-05] MEDS ORDERED: OSELTAMIVIR 75 MG CAP PO ONE (10:09)
[2024-09-05 10:49] VITALS: BP 138/90; TEMP 98.7; O2SAT 95
--- NOTE | 2024-09-05 11:25 | RAD REPORT ---
EXAMINATION: ONE VIEW CHEST XR CLINICAL INDICATION: COUGH TECHNIQUE: Frontal chest projection is submitted. Examination is limited by patient positioning and t echnique. COMPARISON: 06/06/2024 FINDINGS: The lungs are well inflated and clear. The heart is upper limit of normal in size. No displaced fract ures identified. IMPRESSION: No acute intrathoracic abnormalities.
== END 2024-09-05 10:29 | disposition home or self-care (01) ==
LOC: ER 08:54
DX: J10.1 Influenza due to other identified influenza virus with other respiratory manifestations (principal); Z11.52 Encounter for screening for COVID-19
CPT/HCPCS: 96361; 85025; 80048; 36415; 87804 ×2; 71045; 96375; 96374; 99285; 87811; J7613; J7644; J2405; J7040

== ENCOUNTER 2024-10-16 06:38 | Inpatient (IN) | payer OTHER ==
--- OUTSIDE RECORDS SUMMARY | 2024-10-16 06:46 | XMS REPORT | Continuity of Care Document ---
Author Name Unknown Address [address] [place] [address] [facility] Address 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 Name Role Phone Philip Colby [facility], [facility] Physician DIANN SADLER Attending Clinician Unavailable TRACY SIDHU [...] ANTONIO ALEMAN Attending Clinician Unavailable Doctor Unassigned, [place] Attending Clinician U Dwayne Gibson Attending Clinician Payers Payer Name Policy Type Policy Number Effective Date Expirati on Date Source CARLOS 5 [facility] [place] 94 9 [id number] 2024 00:00:00 COMMERCIAL NON-CONTRACT GENERIC [id number] 2017 00:00:00 Problems Condition Name Condition Details [...] problems No known active problems Disease [facility] Allergies, Adverse Reactions, Alerts Allergy Name Allergy Type Status Severity Reaction(s) Onset Date Inactive Date Treating Clinician Comments Source NO KNOWN ALLERGIE S Drug Class Active [facility] Social History Social Habit Start Date Stop Date Quantity Comments Source Gender identity Rosa M Oropeza - External Sexual orientation [facility] Alcoholic beverage intake 2024-04-24 00:00:00 2024-04-24 00:00:00 [...] (event) 2021-04-17 00:00:00 2021-05-17 12:04:00 Not sure [facility] Sex assigned at 1965 00:00:00 1965 00:[birth year]:00 Lexy Oropeza - External Smoking Status Start Date Stop Date Source Never smoked tobacco Lexy Oropeza - External Tobacco smoking consumption unknown [facility] Medications Ordered Medication Name Filled Medication Name Start Date Stop Date Current Medication? Ordering Clinician Indication Dosage Frequency Signature (SIG) Comments Components Source Methylpredn isolone Acetate (Depo-Medro l) [40 mg/mL], 40mg TOTAL - Physician Administere d (J1030) 04-24 17:00: 31 No [id number] 40mg 40 mg, Physician Administer ed, ONCE, 1 dose, On Tue04/24/24 at 1645 Lexy chacon methylPREDN ISolone (Medrol) 4 MG oral Tablet Therapy Pack 04-24 00:00: 00 04-24 00:00 :00 No 1{aline} Take 1 aline by mouth See Admin Instructio ns Take as directed. Lexy chacon LISINOPRIL- HCTZ 20-12.5 MG oral Tablet 04-16 00:00: 00 Yes [id number] 2{tbl} QD Take 2 tablets by mouth daily. Lexy chacon Diclofenac Sodium 1 % apply externally Gel 02-14 00:00: 00 Yes [id number] 9100 1{appli cation} Q.5D Apply 1 Applicatio n topically 2 times daily as needed (pain). Lexy chacon Gabapentin 100 MG oral Capsule 02-14 00:00: 00 Yes [id number] 9100 100mg Q.5D Take 1 capsule (100 mg total) by mouth 2 times daily as needed (pain). Lexy chacon Sildenafil Citrate 100 MG oral Tablet 02-14 00:00: 00 Yes [id number] 100mg QD Take 1 tablet (100 mg total) by mouth daily as needed. Lexy chacon Semaglutide -Weight Management (Wegovy) 0.25 MG/0.5ML subcutaneou s Solution Auto-inject or 02-14 00:00: 00 Yes [id number] 104 .25mg Q1W Inject 0.25 mg into the skin once a week. Lexy chacon Methylpredn isolone Acetate (Depo-Medro l) [40 mg/mL], 40mg TOTAL - Physician Administere d (J1030) 02-13 13:45: 00 02-13 14:19 :25 No [id number] 40mg Lexy chacon prednisoLON E Acetate 1 % ophthalmic Suspension 02-13 00:00: 00 Yes [id number] 1[drp] Q.5D Place 1 drop into both eyes 2 times daily. Lexy chacon Ketoconazol e 2 % apply externally Cream -20 00:00: 00 Yes [id number] APPLY TO AFFECTED AREA OF THE SKIN DAILY FOR 14 DAYS. Lexy Sahni l Gentamicin Sulfate 0.3 % ophthalmic Solution -17 00:00: 00 Yes Lexy chacon Diclofenac Sodium 75 MG oral Tablet Delayed Response - 00:00: 00 02-14 00:00 :00 No [id number] 75mg Q.5D Take 1 tablet (75 mg total) by mouth 2 times daily as needed (pain). Lexy chacon Erythromyci n 5 MG/GM ophthalmic Ointment 01-07 00:00: 00 Yes APPLY 1CM TO AFFECTED EYE NIGHTLY Lexy chacon Atorvastati n Calcium 40 MG oral Tablet 18 00:00: 00 Yes [id number] 40mg Take 1 tablet (40 mg total) by mouth at bedtime. Lexy chacon Bilateral Injection: Methylpredn isolone Acetate (Depo-Medro l) 40 mg/ml, 80mg - Physician Administere d (J1030) 10-14 18:45: 00 10-14 18:38 :00 No [id number] 80mg Lexy chacon Triamcinolo ne Acetonide 0.1 % apply externally Cream 10-14 00:00: 00 Yes [id number] Apply to affected area twice daily. Lexy chacon Fluocinonid e 0.05 % apply externally Ointment 10-14 00:00: 00 Yes [id number] Apply to affected areas twice daily for three weeks.. Lexy chacon predniSONE (DELTASONE) 10 MG oral tablet 10-14 00:00: 00 02-13 00:00 :00 No [id number] 10mg Take 1 tablet (10 mg total) by mouth daily. Lexy Landis Externa oswaldo FLUTICASONE PROPIONATE, NASAL, (Flonase Allergy Relief) 50 MCG/ACT nasal Suspension 08 00:00: 00 Yes [id number] 50ug Q.5D Use 1 spray (50 mcg total) in each nostril 2 times daily. Lexy chacon Ketoconazol e 2 % apply externally Cream 10-12 00:00: 00 Yes [id number] Apply to skin daily for 14 days. Lexy chacon LISINOPRIL- HCTZ 20-12.5 MG oral Tablet 10-07 00:00: 00 Yes [id number] 2{tbl} Take 2 tablets by mouth daily. Lexy chacon Sildenafil Citrate 100 MG oral Tablet 10-07 00:00: 00 Yes [id number] 100mg QD Take 1 tablet (100 mg total) by mouth daily as needed. Lexy chacon TESTOSTERON E CYPIONATE IM 09-19 16:33: 46 09-19 00:00 :00 No Inject into the muscle Lexy chacon Atorvastaindiana n Calcium 40 MG oral Tablet 09-19 00:00: 00 Yes [id number] 20mg Take 0.5 tablets (20 mg total) by mouth at bedtime. Lexy chacon Carvedilol 6.25 MG oral Tablet 09-13 00:00: 00 Yes [id number] 6.25mg Take 1 tablet (6.25 mg total) [...] MG oral Tablet 2022-09 00:00: 00 Yes [id number] 100mg QD Take 1 tablet (100 mg total) by mouth daily as needed. Lexy chacon Atorvastati n Calcium 40 MG oral Tablet 2022-09 2-18 00:00: 00 Yes [id number] 40mg Take 1 tablet (40 mg total) by mouth at bedtime. Lexy chacon Meclizine HCl 12.5 MG oral Tablet 2022-09-24 00:00: 00 Yes [id number] 12.5mg QD Take 1 tablet (12.5 mg total) by mouth daily as needed for dizziness (vertigo). Lexy chacon Bilateral Injection: Methylpredn isolone Acetate (Depo-Medro l) 40 mg/ml, 80mg - Physician Administere d (J1030) 2022-09 16:30: 00 06-10 16:45 :00 No [id number] 80mg Lexy chacon TESTOSTERON E CYPIONATE IM 2022-09 11:13: 17 Yes Inject into the muscle Lexy chacon Carvedilol (Coreg) 6.25 MG oral Tablet 05-26 00:00: 00 Yes [id number] 6.25mg Take 1 tablet (6.25 mg total) by mouth in the morning and 1 tablet (6.25 mg total) in the evening. Take with meals. Lexy chacon Diclofenac Sodium 1 % apply externally Gel 05-26 00:00: 00 02-14 00:00 :00 No [id number] 1{appli cation} Q.5D Apply 1 Applicatio n topically 2 times daily as needed (pain). Lexy chacon Tramadol HCl (ULTRAM) 50 MG oral Tablet 05-26 00:00: 00 09-19 00:00 :00 No [id number] 50mg Q.5D Take 1 tablet (50 mg total) by mouth 2 times daily as needed for pain. Lexy chacon predniSONE (DELTASONE) 10 MG oral tablet 05-26 00:00: 00 09-02 00:00 :00 No [id number] 10mg Take 1 tablet (10 mg total) by mouth daily. Lexy chacon Diclofenac Sodium 75 MG oral Tablet Delayed Response 05-26 00:00: 00 05-26 00:00 :00 No [id number] 75mg QD Take 1 tablet (75 mg total) by mouth daily as needed. Lexy chacon TESTOSTERON E CYPIONATE IM 05-23 17:47: 54 Yes Inject into the muscle Lexy chacon Sildenafil Citrate 100 MG oral Tablet 05-19 00:00: 00 Yes [id number] 100mg QD Take 1 tablet (100 mg total) by mouth daily as needed. Lexy chacon Ketoconazol e 2 % apply externally Cream 05-19 00:00: 00 Yes [id number] Apply to skin daily for 14 days. Lexy chacon Diclofenac Sodium 75 MG oral Tablet Delayed Response 05-19 00:00: 00 05-26 00:00 :00 No [id number] 75mg Q.5D Take 1 tablet (75 mg total) by mouth 2 times daily as needed. Lexy chacon Benzonatate 100 MG oral Capsule 05-12 00:00: 00 Yes [id number] 100mg Q.[id number] 3D Take 1 capsule (100 mg total) by mouth 3 times daily as needed for cough. Lexy chacon Azithromyci n 250 MG oral Tablet 05-12 00:00: 00 05-18 04:59 :00 No [id number] Take 2 tablets by mouth on day 1 then 1 tablet by mouth daily for 4 days thereafter .. Lexy chacon Sildenafil Citrate 50 MG oral Tablet 04-05 00:00: 00 Yes [id number] 50mg QD Take 1 tablet (50 mg total) by mouth daily as needed Lexy hcacon LISINOPRIL- HCTZ 20-12.5 MG oral Tablet 04-05 00:00: 00 Yes [id number] 2{tbl} Take 2 tablets by mouth daily Lexy chacon Carvedilol (Coreg) 3.125 MG oral Tablet 04-05 00:00: 00 05-26 00:00 :00 No [id number] 3.125mg Take 1 tablet (3.125 mg total) by mouth in the morning and 1 tablet (3.125 mg total) in the evening. Take with meals. Lexy Porrasa oswaldo TESTOSTERON E CYPIONATE IM 04-01 09:04: 24 Yes Inject into the muscle Lexy Vacaglutmeme -Mg t Management 0.25 MG/0.5ML Subcutaneou s Solution Auto-inject or 04-01 00:00: 00 Yes [id number] 104 .25mg Inject 0.25 mg into the skin once a week Lexy chacon Ketoconazol e 2 % apply externally Cream 04-01 00:00: 00 05-19 00:00 :00 No [id number] Apply to skin daily for 14 days [...] MG oral Tablet 02-02 00:00: 00 Yes [id number] 50mg QD Take 1 tablet (50 mg total) by mouth daily as needed Lexy chacon Metformin HCl 500 MG oral Tablet 02-02 00:00: 00 04-01 00:00 :00 No [id number] 500mg Take 1 tablet (500 mg total) [...] MG/GM ophthalmic Ointment 02-01 00:00: 00 Yes [id number] 1cm Apply 1 cm to eye nightly Lexy chacon [place]-3 Fatty Acids (Fish Oil) 1000 MG oral Capsule 01-21 00:00: 00 05-26 00:00 :00 No [id number] 1000mg Take 1 capsule (1,000 mg total) [...] MG oral Tablet 01-19 00:00: 00 Yes [id number] 2{tbl} Take 2 tablets by mouth daily Lexy chacon Carvedilol (Coreg) 3.125 MG oral Tablet 01-19 00:00: 00 Yes [id number] 3.125mg Take 1 tablet (3.125 mg total) [...] ONCE, 1 dose, 05/17/21 at 1330, Routine [facility] ketorolac (TORADOL) injection 30 mg 05-17 18:30: 00 05-17 17:31 :00 No 30mg 30 mg, Intramuscu lar, ONCE, 1 dose, 05/17/21 at 1330, CONNIE
Fa culty member approving Restricted medication : DWAYNE [facility] [facility] cyclobenzap rine 10 mg tablet 05-17 00:00: 00 Yes [id number] 10mg Take 1 tablet by mouth 3 (three) times daily as needed for Muscle Spasms. [facility] ibuprofen 800 mg tablet 05-17 00:00: 00 Yes [id number] 800mg Take 1 tablet by mouth every 6 (six) hours as needed for Pain (scale 4-6). [facility] lisinopril 20 mg-hydrochl orothiazide 25 mg [...] Dose Unknown 0 6- 00:00: 00 No Dose Unknown 0 4-07 00:00: 00 No Dose Unknown 0 4-07 00:00: 00 No Dose Unknown 0 4- 00:00: 00 No Dose Unknown 2020-0 4-07 [...] 00 No gemfibrozil 600 mg tablet 0 -06 00:00: 00 No 1mg Dose Unknown 0 1-06 00:00: 00 No Dose Unknown 0 -06 00:00: 00 No [...] 0 - 00:00: 00 No Dose Unknown 2019-09 [...] No 2mg ibuprofen 800 mg tablet 0 -16 00:00: 00 No 1mg Dose Unknown 0 [...] 2-14 00:00: 00 No Dose Unknown 0 14 00:00: 00 No Dose Unknown 14 00:00: 00 No Dose Unknown 14 00:00: 00 No lisinopril 20 mg-hydrochl orothiazide 12.5 mg tablet 2-10 00:00: 00 No 2mg nitroglycer in 0.4 mg sublingual tablet 2 00:00: 00 No 1mg lisinopril 20 mg-hydrochl orothiazide 12.5 mg tablet 2 00:00: 00 No 2mg lovastatin 40 mg tablet 210 00:00: 00 No 1mg nitroglycer in 0.4 [...] as needed for Nausea and Vomiting (N/V). [facility] benzonatate (TESSALON PERLES) 100 mg capsule 10-14 00:00: 00 Yes 100mg Take 1 capsule by mouth every 8 (eight) hours as needed for Cough. [facility] lisinopril 20 mg-hydrochl orothiazide 12.5 mg [...] tablet 0 6-16 00:00: 00 No 2mg lisinopril 20 [...] Hep B Combo 2023-04-23 00:00:00 Completed Lexy Seybold - External Pneumococcal Vaccine, Conjugate 20 2023-04-23 00:00:00 Completed Lexy Seybold - External Influenza Virus Vaccine, No Preserv, age 6 months and up Unknown Completed Lexy Seybold - External Hep A/ Hep B Combo Unknown Completed Elizabeth elsey Seybold - External Pneumococcal Vaccine, Conjugate 20 Unknown Completed Lexy Seybold - External Tdap- (Boostrix, Adacel) Unknown Completed Lexy Seybold - External Shingles IM (Shingrix) Unknown Completed Lexy Seybold - External Influenza Virus Vaccine, No Preserv, age 6 months and up Unknown Completed Lexy Seybold - External Hep A/ Hep B Combo Unknown Completed K elsey Seybold - External Pneumococcal Vaccine, Conjugate 20 Unknown Completed Lexy Seybold - External Tdap- (Boostrix, Adacel) Unknown Completed Lexy Seybold - External Shingles IM (Shingrix) Unknown Completed Elxy Seybold - External Influenza Virus Vaccine, No Preserv, age 6 months and up Unknown Completed Lexy Seybold - External Hep A/ Hep B Combo Unknown Completed K elsey Seybold - External Pneumococcal Vaccine, Conjugate 20 Unknown Completed Lexy Seybold - External Tdap- (Boostrix, Adacel) Unknown Completed Lexy Seybold - External Shingles IM (Shingrix) Unknown Completed Lexy Seybold - External Influenza Virus Vaccine, No Preserv, age 6 months and up Unknown Completed Lexy Seybold - External Hep A/ Hep B Combo Unknown Completed K elsey Seybold - External Pneumococcal Vaccine, Conjugate 20 Unknown Completed Lexy Seybold - External Tdap- (Boostrix, Adacel) Unknown Completed Lexy Seybold - External Shingles IM (Shingrix) Unknown Completed Lexy Seybold - External Influenza Virus Vaccine, No Preserv, age 6 months and up Unknown Completed Lexy Seybold - External Hep A/ Hep B Combo Unknown Completed K elsey Seybold - External Pneumococcal Vaccine, Conjugate 20 Unknown Completed Lexy Seybold - External Tdap- (Boostrix, Adacel) Unknown Completed Lexy Seybold - External Shingles IM (Shingrix) Unknown Completed Lexy Seybold - External Influenza Virus Vaccine, No Preserv, age 6 months and up Unknown Completed Lexy Seybold - External Hep A/ Hep B Combo Unknown Completed K elsey Seybold - External Pneumococcal Vaccine, Conjugate 20 Unknown Completed Lexy Seybold - External Tdap- (Boostrix, Adacel) Unknown Completed Lexy Seybold - External Shingles IM (Shingrix) Unknown Completed Lexy Seybold - External Influenza Virus Vaccine, No Preserv, age 6 months and up Unknown Completed Lexy Seybold - External Hep A/ Hep B Combo Unknown Completed K elsey Seybold - External Pneumococcal Vaccine, Conjugate 20 Unknown Completed Lexy Seybold - External Tdap- (Boostrix, Adacel) Unknown Completed Lexy Seybold - External Shingles IM (Shingrix) Unknown Completed Lexy Seybold - External Influenza Virus Vaccine, No Preserv, age 6 months and up Unknown Completed Lexy Seybold - External Hep A/ Hep B Combo Unknown Completed K elsey Seybold - External Pneumococcal Vaccine, Conjugate 20 Unknown Completed Lexy Seybold - External Tdap- (Boostrix, Adacel) Unknown Completed Lexy Seybold - External Shingles IM (Shingrix) Unknown Completed Lexy Seybold - External Influenza Virus Vaccine, No Preserv, age 6 months and up Unknown Completed Lexy Seybold - External Hep A/ Hep B Combo Unknown Completed K elsey Seybold - External Pneumococcal Vaccine, Conjugate 20 Unknown Completed Lexy Seybold - External Tdap- (Boostrix, Adacel) Unknown Completed Lexy Seybold - External Shingles IM (Shingrix) Unknown Completed Lexy Seybold - External Influenza Virus Vaccine, No Preserv, age 6 months and up Unknown Completed Lexy Seybold - External Hep A/ Hep B Combo Unknown Completed K elsey Seybold - External Pneumococcal Vaccine, Conjugate 20 Unknown Completed Lexy Seybold - External Tdap- (Boostrix, Adacel) Unknown Completed Lexy Seybold - External Shingles IM (Shingrix) Unknown Completed Lexy Seybold - External Influenza Virus Vaccine, No Preserv, age 6 months and up Unknown Completed Lexy Seybold - External Hep A/ Hep B Combo Unknown Completed K elsey Seybold - External Pneumococcal Vaccine, Conjugate 20 Unknown Completed Lexy Seybold - External Tdap- (Boostrix, Adacel) Unknown Completed Lexy Seybold - External Shingles IM (Shingrix) Unknown Completed Lexy Seybold - External Influenza Virus Vaccine, No Preserv, age 6 months and up Unknown Completed Lexy Seybold - External Hep A/ Hep B Combo Unknown Completed K elsey Seybold - External Pneumococcal Vaccine, Conjugate 20 Unknown Completed Lexy Seybold - External Tdap- (Boostrix, Adacel) Unknown Completed Lexy Seybold - External Shingles IM (Shingrix) Unknown Completed Lexy Seybold - External Influenza Virus Vaccine, No Preserv, age 6 months and up Unknown Completed Lexy Seybold - External Hep A/ Hep B Combo Unknown Completed K elsey Seybold - External Pneumococcal Vaccine, Conjugate 20 Unknown Completed Lexy Seybold - External Tdap- (Boostrix, Adacel) Unknown Completed Lexy Seybold - External Shingles IM (Shingrix) Unknown Completed Lexy Seybold - External Vital Signs Vital Name Observation Time Observation Value Comments S ource Systolic blood pressure 2024-04-24 20:59:00 155 mm[Hg] Lexy Seybo ld - External Diastolic blood pressure 2024-04-24 20:59:00 84 mm[Hg] Lexy Seybo ld - External Heart rate 2024-04-24 20:59:00 66 /min Kelse y Seybold - External Body height 2024-04-24 20:59:00 170.2 cm Rosa M ey Seybold - External Body weight 2024-04-24 20:59:00 127.37 kg Rosa M ey Seybold - External BMI 2024-04-24 20:59:00 43.98 [...] External Heart rate 2024-02-14 13:08:00 63 /min Kelse y Seybold - External Body height 2024-02-14 [...] Pulse oximetry 2023-09-19 22:10:00 95 /min Lexy ybo ld - External Respiratory rate 2023-09-02 19:59:00 [...] Systolic blood pressure 2021-05-17 17:07:58 138 mm[Hg] [facility] Diastolic blood pressure 2021-05-17 17:07:58 94 mm[Hg] [facility] Heart rate 2021-05-17 17:07:58 75 /min [facility] temperature 2021-05-17 17:07:58 36.94 [facility] Respiratory rate 2021-05-17 17:07:58 17 /min [facility] Body height 2021-05-17 17:05:00 170.2 cm [facility] Body weight 2021-05-17 17:05:00 117.935 kg [facility] BMI 2021-05-17 17:05:00 40.72 kg/m2 [facility] Oxygen saturation in Arterial blood by Pulse oximetry 2021-05-17 17:05:00 96 /min [facility] BP Systolic 2022-07-06 13:15:00 162 mm[Hg] BP [...] /min Respiratory Rate 2022-06-29 11:08:00 18.00 /min Weight Measured 2022-06-23 10:34:00 273.20 pounds Height Measured 2022-06-23 10:34:00 67.50 inches Body Temperature 2022-06-23 10:34:00 98.10 degrees Heart Rate 2022-06-23 10:34:00 74.00 /min Respiratory Rate 2022-06-23 10:34:00 24.00 /min BP Systolic 2022-06-23 10:34:00 142 mm[Hg] BP Diastolic 2022-06-23 10:34:00 87 mm[Hg] BP Systolic 2022-05-27 14:32:00 BP Diastolic 2022-05-27 [...] SPINE 3 VW 2021-05-17 17:50:14 Russ Cleveland [facility] URINALYSIS 2021-05-17 17:37:00 [facility] FOR DIAGNOSIS AND TREATMENT 2021-05-17 16:46:48 Doctor Unassigned, [place] [facility] Ekg 2018-08-16 00:00:00 58414 Ecg Routine Ecg W/least 12 Lds W/i r 2017-10-11 00:00:00 Plan of Care Planned Activity Planned Date Details Comments Source Goal Plan of Care Note [code = 28941-4] Goal Plan of Care Note [code = 13191-7] Goal Plan of Care Note [code = 72920-5] Goal Plan of Care Note [code = 49336-1] Goal Plan of Care Note [code = 58724-9] Goal Plan of Care Note [code = 10724-3] Goal Plan of Care Note [code = 48735-3] Goal Plan of Care Note [code = 41686-9] Goal Plan of Care Note [code = 39672-2] Goal Plan of Care Note [code = 50177-7] Goal Plan of Care Note [code = 63495-6] Goal Plan of Care Note [code = 42343-3] Goal Plan of Care Note [code = 86752-4] Goal Plan of Care Note [code = 83349-7] Goal Plan of Care Note [code = 79558-2] Goal Plan of Care Note [code = 23303-5] Goal Plan of Care Note [code = 81570-2] Goal Plan of Care Note [code = 07566-4] Goal Plan of Care Note [code = 31946-5] Goal Plan of Care Note [code = 72304-5] Goal Plan of Care Note [code = 70314-9] Goal Plan of Care Note [code = 91435-8] Goal Plan of Care Note [code = 76762-0] Goal Plan of Care Note [code = 98382-0] Goal Plan of Care Note [code = 42594-8] Goal Plan of Care Note [code = 80898-6] Goal Plan of Care Note [code = 98857-3] Goal Plan of Care Note [code = 05289-5] Goal Plan of Care Note [code = 20971-9] Goal Plan of Care Note [code = 78876-6] Goal Plan of Care Note [code = 41227-4] Goal Plan of Care Note [code = 67060-3] Goal Plan of Care Note [code = 07805-8] Goal Plan of Care Note [code = 90284-9] Goal Plan of Care Note [code = 77432-7] Goal Plan of Care Note [code = 01422-0] Goal Plan of Care Note [code = 91893-7] Goal Plan of Care Note [code = 93846-1] Goal Plan of Care Note [code = 56399-5] Goal Plan of Care Note [code = 34759-1] Goal Plan of Care Note [code = 03563-5] Goal Plan of Care Note [code = 48603-4] Goal Plan of Care Note [code = 88594-7] Goal Plan of Care Note [code = 99878-5] Goal Plan of Care Note [code = 22808-5] Goal Plan of Care Note [code = 23860-0] Goal Plan of Care Note [code = 94968-7] Goal Plan of Care Note [code = 81605-9] Goal Plan of Care Note [code = 40001-8] Goal Plan of Care Note [code = 28879-6] Goal Plan of Care Note [code = 12760-2] Goal Plan of Care Note [code = 70897-0] Goal Plan of Care Note [code = 64703-9] Goal Plan of Care Note [code = 14043-2] Goal Plan of Care Note [code = 93851-1] Goal Plan of Care Note [code = 83023-1] Goal Plan of Care Note [code = 13365-2] Goal Plan of Care Note [code = 03841-8] Goal Plan of Care Note [code = 93922-4] Goal Plan of Care Note [code = 52750-1] Goal Plan of Care Note [code = 00244-8] Goal Plan of Care Note [code = 86901-8] Goal Plan of Care Note [code = 55534-5] Goal Plan of Care Note [code = 72313-0] Goal Plan of Care Note [code = 67266-4] Goal Plan of Care Note [code = 57597-1] Goal Plan of Care Note [code = 28187-4] Goal Plan of Care Note [code = 45781-1] Goal Plan of Care Note [code = 11684-5] Goal Plan of Care Note [code = 66046-3] Goal Plan of Care Note [code = 78865-1] Goal Plan of Care Note [code = 16532-8] Goal Plan of Care Note [code = 44775-7] Goal Plan of Care Note [code = 89853-9] Goal Plan of Care Note [code = 68934-2] Goal Plan of Care Note [code = 98096-2] Goal Plan of Care Note [code = 81836-6] Goal Plan of Care Note [code = 58668-2] Goal Plan of Care Note [code = 46679-9] Goal Plan of Care Note [code = 48819-5] Goal Plan of Care Note [code = 14771-6] Goal Plan of Care Note [code = 62966-2] Goal Plan of Care Note [code = 22586-1] Goal Plan of Care Note [code = 34918-9] Goal Plan of Care Note [code = 84910-6] Goal Plan of Care Note [code = 19254-2] Goal Plan of Care Note [code = 81942-9] Goal Plan of Care Note [code = 97705-6] Goal Plan of Care Note [code = 74831-5] Goal Plan of Care Note [code = 03707-4] Goal Plan of Care Note [code = 15656-6] Goal Plan of Care Note [code = 29476-5] Goal Plan of Care Note [code = 89817-3] Encounters Start Date/Time End Date/Time Encounter Type Admission Type Attending [email or web address] Care Department Encounter ID Source 2024-11-16 15:30:00 2024-11-16 15:30:00 Outpatient PREZAKathia DIANN STAHL [id number] Lexy [facility] 2024-10-07 00:00:00 2024-10-07 00:00:00 Outpatient PREZAKathia DIANN STAHL [id number] [facility] 2024-10-05 00:00:00 2024-10-05 00:00:00 Outpatient PREMONALISAKathia DIANN STAHL [id number] Lexy [facility] 2024-08-24 00:00:00 2024-08-24 00:00:00 Outpatient PREZAKathia DIANN STAHL [id number] Lexy [facility] 2024-06-20 00:00:00 2024-06-20 00:00:00 Outpatient PREMONALISAKathiaDIANN [id number] Lexy [facility] 2024-06-07 00:00:00 2024-06-07 00:00:00 Outpatient PREDIANN HARPER [id number] [facility] 2024-06-06 00:00:2024-06-06 00:00:00 Outpatient PREZAS, DIANN STAHL LEXY [id number] Lexy Seybold 2024-06-06 00:00:00 2024-06-06 00:00:00 Outpatient PREZAS, DIANN STAHL LEXY [id number] Lexy Seybold 2024-06-01 00:00:00 2024-06-01 00:00:00 Outpatient PREZAS, DIANN LEXY STAHL [id number] Lexy Seybold 2024-06-01 00:00:00 2024-06-01 00:00:00 Outpatient PREZAS, DIANN LEXY STAHL [id number] Lexy Seybold 2024-05-01 00:00:00 2024-05-01 00:00:00 Outpatient [facility] STAHL [id number] [facility] [facility] 2024-04-26 00:00:00 2024-04-26 00:00:00 Outpatient LEXY STAHL [id number] [facility] 2024-04-24 16:00:00 2024-04-24 16:00:00 Outpatient NAHUMTRACY ACMARENA LEXY STAHL [id number] [facility] 2024-04-12 00:00:00 2024-04-12 00:00:00 Outpatient PREZAS, DIANN LEXY STAHL [id number] [facility] 2024-04-12 00:00:00 2024-04-12 00:00:00 Outpatient PREZAS, DIANN LEXY STAHL [id number] Lexy Seybold 2024-03-30 16:15:00 2024-03-30 16:15:00 Outpatient PREZAS, DIANN LEXY STAHL [id number] Lexy Seybold 2024-03-09 14:30:00 2024-03-09 14:30:00 Outpatient АНДРЕЙ WHITLOCK [id number] Lexy Seybold 2024-02-23 00:00:00 2024-02-23 00:00:00 Outpatient LEXY STAHL [id number] Lexy Seybold 2024-02-23 00:00:00 2024-02-23 00:00:00 Outpatient PREZAS, DIANN STAHL [id number] Lexy Seybold 2024-02-22 00:00:00 2024-02-22 00:00:00 Outpatient MD LEXY SILVEIRA [id number] Lexy Seybold 2024-02-21 00:00:00 2024-02-21 00:00:00 Outpatient PREZADIANN Bae LEXY STAHL [id number] Lexy Seybold 2024-02-21 00:00:00 2024-02-21 00:00:00 Outpatient LEXY STAHL [id number] Lexy Seybold 2024-02-16 00:00:00 2024-02-16 00:00:00 Outpatient LEXY STAHL [id number] Lexy Seybold 2024-02-16 00:00:00 2024-02-16 00:00:00 Outpatient PREDIANN HARPER LEXY STAHL [id number] Lexy Seybold 2024-02-16 00:00:00 2024-02-16 00:00:00 Outpatient TRACY SIDHU [id number] Lexy Seybold 2024-02-15 16:55:00 2024-02-15 16:55:00 Outpatient LAB90 LEXY STAHL [id number] Lexy Seybold 2024-02-15 16:30:00 2024-02-15 16:30:00 Outpatient PREZADIANN Bae LEXY STAHL [id number] Lexy Seybold 2024-02-15 00:00:00 2024-02-15 00:00:00 Outpatient LEXY STAHL [id number] Lexy Seybold 2024-02-14 13:40:00 2024-02-14 13:40:00 Outpatient RASHMI GONZÁLES [id number] Lexy Seybold 2024-02-14 08:20:00 2024-02-14 08:20:00 Outpatient TRACY SIDHU [id number] Lexy Seybold 2024-02-03 14:30:00 2024-02-03 14:30:00 Outpatient АНДРЕЙ WHITLOCK [id number] Lexy Seybold 2024-01-23 00:00:00 2024-01-23 00:00:00 Outpatient PREZADIANN Bae LEXY [id number] Lexy Seybold 2024-01-13 00:00:00 2024-01-13 00:00:00 Outpatient PREZADIANN Bae LEXY [id number] Lexy Seybold 2024-01-12 00:00:00 2024-01-12 00:00:00 Outpatient RMZADIANN Bae LEXY [id number] Lexy Seybold 2023-12-15 14:45:00 2023-12-15 14:45:00 Outpatient BRIONNA CEBALLOS LEXY STAHL [id number] Lexy Seybold 2023-12-08 00:00:00 2023-12-08 00:00:00 Outpatient LEXY STAHL [id number] Lexy Seybold 2023-12-08 00:00:00 2023-12-08 00:00:00 Outpatient DIANN SADLER LEXY [id number] Lexy Seybold 2023-12-08 00:00:00 2023-12-08 00:00:00 Outpatient PREZASDIANN LEXY STAHL [id number] Lexy Seybold 2023-11-24 00:00:00 2023-11-24 00:00:00 Outpatient PREZADIANN Bae LEXY STAHL [id number] Lexy Seybold 2023-11-19 00:00:00 2023-11-19 00:00:00 Outpatient PREZADIANN Bae LEXY STAHL [id number] Lexy Seybold 2023-11-17 13:45:00 2023-11-17 13:45:00 Outpatient RASHMI SILVER [id number] Lexy Seybold 2023-11-02 00:00:00 2023-11-02 00:00:00 Outpatient MD LEXY SILVEIRA [id number] Lexy Seybold 2023-11-02 00:00:00 2023-11-02 00:00:00 Outpatient TRACY SIDHU [id number] Lexy Seybold 2023-10-28 00:00:00 2023-10-28 00:00:00 Outpatient DIANN SADLER LEXY STAHL [id number] Lexy mian 2023-10-25 08:30:00 2023-10-25 08:30:00 Outpatient MARIBEL SIDHUCHI STAHL [id number] Lexy ybmian 2023-10-20 00:00:00 2023-10-20 00:00:00 Outpatient MARK GUNTER [id number] [facility] 2023-10-18 16:15:00 2023-10-18 16:15:00 Outpatient DIANN SADLER LEXY STAHL [id number] Lexy [facility] 2023-10-14 15:00:00 2023-10-14 15:00:00 Outpatient CEBALLOS BRIONNA LEXY STAHL [id number] Lexy [facility] 2023-10-14 13:30:00 2023-10-14 13:30:00 Outpatient SANDI MARIA ALEJANDRADANIELE STAHL [id number] [facility] 2023-10-14 11:20:00 2023-10-14 11:20:00 Outpatient TRAC[facility] SIDHU [facility] [id number] [facility] 00:00:00 2023-10-14 00:00:00 Outpatient MD LEXY SILVEIRA [id number] Lexy lidya 2023-10-13 13:00:00 2023-10-13 13:00:00 Outpatient MANPREET RAINEY [id number] [facility] 2023-10-13 08:30:00 2023-10-13 08:30:00 Outpatient MARK GUNTER [id number] Lexy ybmian 2023-10-13 00:00:00 2023-10-13 00:00:00 Outpatient MARK GUNTER [id number] Lexy Oropeza 2023-10-13 00:00:00 2023-10-13 00:00:00 Outpatient MD LEXY SILVEIRA [id number] Lexy Seybmian 2023-10-13 00:00:00 2023-10-13 00:00:00 Outpatient NAHUMTRACY FULTON LEXY STAHL [id number] Lexy Seybmian 2023-10-11 10:30:00 2023-10-11 10:30:00 Outpatient NAHUMTRACY CAMARENA LEXY STAHL [id number] Lexy Seybold 2023-10-11 00:00:00 2023-10-11 00:00:00 Outpatient PREZASDIANN LEXY STAHL [id number] Lexy Seybold 2023-10-05 00:00:00 2023-10-05 00:00:00 Outpatient PREZASLADIDIANNROGERIO STAHL [id number] Lexy Seybold 2023-09-30 15:00:00 2023-09-30 15:00:00 Outpatient LINNETTE BARNETT [id number] Lexy Seybold 2023-09-30 13:00:00 2023-09-30 13:00:00 Outpatient NAHUMTRACY CAMARENA LEYX STAHL [id number] Lexy Seybold 2023-09-19 16:45:00 2023-09-19 16:45:00 Outpatient PREZASDIANN LEXY STAHL [id number] Lexy Seybold 2023-09-19 16:45:00 2023-09-19 16:45:00 Outpatient TJ STAHL [id number] Lexy Seybold 2023-09-16 00:00:00 2023-09-16 00:00:00 Outpatient MD LEXY SILVEIRA [id number] Lexy Seybold 2023-09-15 00:00:00 2023-09-15 00:00:00 Outpatient PREZASLADIDIANNROGERIO STAHL [id number] Lexy Seybold 2023-09-14 00:00:00 2023-09-14 00:00:00 Outpatient PREZAS DIANN STAHL [id number] Lexy Seybold 2023-09-13 10:30:00 2023-09-13 10:30:00 Outpatient PREZASLADIDIANNROGERIO STAHL [id number] Lexy Oropeza 2023-09-12 16:25:00 2023-09-12 16:25:00 Outpatient TJ LEXY STAHL [id number] Lexy Burgosmian 2023-09-12 00:00:00 2023-09-12 00:00:00 Outpatient TRACY SIDHU LEXY STAHL [id number] Lexy Oropeza 2023-09-12 00:00:00 2023-09-12 00:00:00 Outpatient DIANN SADLER LEXY STAHL [id number] [facility]-09-12 00:00:00 2023-09-12 00:00:00 Outpatient DIANN SADLER LEXY STAHL [id number] Lexy mian 2023-09-10 13:05:19 2023-09-10 13:05:19 Outpatient SFA SFA [id number] Philip Alegre 2023-09-03 13:46:36 2023-09-03 13:46:36 Outpatient SFA SFA [id number] Philip Colby Codey 2023-09-02 15:00:00 2023-09-02 15:00:00 Outpatient NAHUMTRACY CAMARENA LEXY STAHL [id number] [facility] 2023-09-02 14:40:00 2023-09-02 14:40:00 Outpatient LEXY STAHL [id number] Lexy [facility] 2023-09-01 16:00:00 2023-09-01 16:00:00 Outpatient ARMAND LEONE [id number] [facility] 2023-08-30 08:00:00 2023-08-30 08:00:00 Outpatient NAHUMTRACY CAMARENA LEXY STAHL [id number] Lexy [facility] 2023-08-27 12:47:20 2023-08-27 12:47:20 Outpatient SFA SFA [id number] Philip Colby Codey 2023-08-22 17:24:25 2023-08-22 17:24:25 Outpatient SFA SFA [id number] Philip Colby Codey 2023-08-20 00:00:00 2023-08-20 00:00:00 Outpatient DIANN SADLER LEXY STAHL [id number] Lexy [facility] 2023-08-13 11:33:10 2023-08-13 11:33:[address] [facility] [id number] Philip Alegre 2023-08-09 14:40:13 2023-08-09 14:40:[address] [facility] [id number] Philip Alegre 2023-07-30 11:45:59 2023-07-30 11:45:59 Outpatient [facility] [id number] Philip Alegre 2023-07-29 00:00:00 2023-07-29 00:00:00 Outpatient PREZADIANN Bae LEXY STAHL [id number] Lexy [facility] 2023-07-29 00:00:00 2023-07-29 00:00:00 Outpatient RMZADIANN Bae LEXY STAHL [id number] Lexy [facility] 2023-07-16 12:30:40 2023-07-16 12:30:40 Outpatient [facility] [id number] Philip Colby Codey 2023-07-13 00:00:00 2023-07-13 00:00:00 Outpatient VEGAPRADEEP FIORE LEXY STAHL [id number] [facility] 2023-06-30 00:00:00 2023-06-30 00:00:00 Outpatient PREZADIANN Bae LEXY STAHL [id number] [facility] 2023-06-28 08:15:00 2023-06-28 08:15:00 Outpatient PREZALADI BaeROGERIO STAHL [id number] Lexy [facility] 2023-06-23 11:15:00 2023-06-23 11:15:00 Outpatient PREZAKathia DIANN STAHL [id number] [facility] 2023-06-16 15:30:00 2023-06-16 15:30:00 Outpatient PREZAKathia DIANN STAHL [id number] Lexy [facility] 2023-06-10 10:35:00 2023-06-10 10:35:00 Outpatient LEXY STAHL [id number] Lexy [facility] 2023-06-10 10:30:00 2023-06-10 10:30:00 Outpatient LEXY STAHL [id number] Lexy Oropeza 2023-06-10 10:25:00 2023-06-10 10:25:00 Outpatient LEXY LEXY [id number] Lexy Oropeza 2023-06-10 10:10:00 2023-06-10 10:10:00 Outpatient TRACY SIDHU LEXY STAHL [id number] Lexy Burgosmian 2023-06-09 09:30:00 2023-06-09 09:30:00 Outpatient TRACY SIDHU LEXY [id number] [facility]-06-08 14:04:14 2023-06-08 14:04:14 Outpatient SFA SFA [id number] Philip Alegre 2023-06-08 00:00:00 2023-06-08 00:00:00 Outpatient TRACY SIDHU LEXY LEXY [id number] [facility] 2023-06-01 11:53:01 2023-06-01 11:53:01 Outpatient SFA SFA [id number] Philip Alegre 2023-05-31 00:00:00 2023-05-31 00:00:00 Outpatient PREZAS, DIANN LEXY STAHL [id number] Lexy [facility] 2023-05-31 00:00:00 2023-05-31 00:00:00 Outpatient PREZASDIANN LEXY STAHL [id number] Lexy [facility] 2023-05-30 13:42:48 2023-05-30 13:42:48 Outpatient SFA SFA [id number] Philip Colby Codey 2023-05-27 00:00:00 2023-05-27 00:00:00 Outpatient PREZAS, DIANN LEXY STAHL [id number] Lexy [facility] 2023-05-26 10:15:00 2023-05-26 10:15:00 Outpatient LAB90 LEXY STAHL [id number] Lexy [facility] 2023-05-26 10:00:00 2023-05-26 10:00:00 Outpatient PREZAS, DIANN LEXY STAHL [id number] Lexy [facility] 2023-05-26 09:40:00 2023-05-26 09:40:00 Outpatient TJ STAHL LEXY [id number] [facility] 2023-05-25 00:00:00 2023-05-25 00:00:00 Outpatient DIANN SADLER LEXY [id number] [facility] 2023-05-24 00:00:00 2023-05-24 00:00:00 Outpatient PREZADIANN Bae LEXY [id number] [facility] 2023-05-23 00:00:00 2023-05-23 00:00:00 Outpatient MEEK LUCERO [facility]EXY STAHL [id number] [facility] 2023-05-19 15:30:00 2023-05-19 15:30:00 Outpatient PREDIANN HARPER LEXY LEXY [id number] [facility] 2023-05-12 11:45:00 2023-05-12 11:45:00 Outpatient DOLORES MALIK LEXY STAHL [id number] [facility] 2023-05-12 00:00:00 2023-05-12 00:00:00 Outpatient VEGAPRADEEP FIORE LEXY STAHL [id number] [facility] 2023-05-12 00:00:00 2023-05-12 00:00:00 Outpatient PRADEEP VEGA LEXY STAHL [id number] [facility] 2023-05-11 00:00:00 2023-05-11 00:00:00 Outpatient PREDIANN HARPER LEXY STAHL [id number] [facility] 2023-05-11 00:00:00 2023-05-11 00:00:00 Outpatient MD LEXY SILVEIRA [id number] [facility] 2023-05-06 15:28:00 2023-05-06 15:28:00 Outpatient SFA SFA [id number] Philip Alegre 2023-05-05 09:15:00 2023-05-05 09:15:00 Outpatient PREZASDIANN LEXY STAHL [id number] [facility] 2023-04-26 11:09:46 2023-04-26 11:09:46 Outpatient SFA SFA [id number] Philip Alegre 2023-04-20 14:13:32 2023-04-20 14:13:32 Outpatient SFA SFA [id number] [place] A[place] 2023-04-20 00:00:00 2023-04-20 00:00:00 Outpatient RMMONALISADIANN Bae LEXY STAHL [id number] [facility] 2023-04-18 00:00:00 2023-04-18 00:00:00 Outpatient MD LEXY SILVEIRA [id number] [facility] 2023-04-18 00:00:00 2023-04-18 00:00:00 Outpatient PRADEEP VEGA [id number] [facility] 2023-04-14 09:00:00 2023-04-14 09:00:00 Outpatient PRADEEP VEGA [id number] [facility] 2023-04-11 10:28:19 2023-04-11 10:28:19 Outpatient SFA SFA [id number] [place] 2023-04-06 09:00:00 2023-04-06 09:00:00 [id number] [facility]:00:00 2023-04-05 00:00:00 Outpatient LADI SADLERROGERIO STAHL [id number] [facility] 2023-04-03 00:00:00 2023-04-03 00:00:00 Outpatient PREZADIANN Bae LEXY STAHL [id number] [facility] 2023-04-01 09:00:00 2023-04-01 09:00:00 Outpatient RMZADIANN Bae LEXY STAHL [id number] [facility] 2023-04-01 00:00:00 2023-04-01 00:00:00 Outpatient PREDIANN HARPER LEXY STAHL [id number] [facility] 2023-03-31 11:51:33 2023-03-31 11:51:33 Outpatient SFA SFA [id number] Philip [place]leg[place] 2023-03-24 10:30:00 2023-03-24 10:30:[address], TECH LEXY STAHL [id number] [facility]-03-23 16:30:00 2023-03-23 16:30:[address], TECH LEXY STAHL [id number] [facility]y [facility] 2023-03-23 00:00:00 2023-03-23 00:00:00 Outpatient MD LEXY SILVEIRA [id number] Lex[facility] 2023-03-23 00:00:00 2023-03-23 00:00:00 Outpatient DIANN SADLER [id number] [facility] 2023-03-18 16:14:23 2023-03-18 16:14:[address] [facility] 14 Philip Alegre 2023-03-18 10:20:00 2023-03-18 10:20:00 Outpatient LEXY STAHL [id number] Lexy [facility] 2023-03-18 10:15:00 2023-03-18 10:15:00 Outpatient LEXY STAHL [id number] Lex[facility] 2023-03-18 10:10:00 2023-03-18 10:10:00 Outpatient LEXY STAHL [id number] [facility]y [facility] 2023-03-18 10:05:00 2023-03-18 10:05:00 Outpatient LEXY STAHL [id number] [facility] 2023-03-18 10:00:00 2023-03-18 10:00:00 Outpatient LEXY STAHL [id number] [facility] 2023-03-18 00:00:00 2023-03-18 00:00:00 Outpatient DIANN SADLER [id number] [facility] 2023-03-17 16:30:00 2023-03-17 16:30:[address], TECH LEXY STAHL [id number] [facility] 2023-03-11 08:15:00 2023-03-11 08:15:00 Outpatient ILIANA GREEN [id number] [facility] 2023-03-10 15:21:41 2023-03-10 15:21:41 Outpatient SFA SFA 07 Philip Alegre 2023-03-10 00:00:00 2023-03-10 00:00:00 Outpatient LEXY STAHL [id number] [facility] 2023-03-03 10:00:00 2023-03-03 10:00:00 Outpatient LINDSAY, MAYGEN LEXY STAHL [id number] [facility] 2023-03-02 10:45:00 2023-03-02 10:45:00 Outpatient MELISSA VILLALPANDO [id number] [facility] 2023-03-02 00:00:00 2023-03-02 00:00:00 Outpatient PRADEEP VEGA [id number] [facility] 2023-03-02 00:00:00 2023-03-02 00:00:00 Outpatient LEXY STAHL [id number] [facility] 2023-03-02 00:00:00 2023-03-02 00:00:00 Outpatient MD LEXY SILVEIRA [id number] [facility] 2023-03-01 13:28:37 2023-03-01 13:28:37 Outpatient SFA SFA 27 Philip Alegre 2023-03-01 00:00:00 2023-03-01 00:00:00 Outpatient MD LEXY SILVEIRA [id number] [facility] 2023-02-28 00:00:00 2023-02-28 00:00:00 Outpatient LEXY STAHL [id number] [facility] 2023-02-24 10:00:00 2023-02-24 10:00:00 Outpatient DULCE LEE [id number] [facility] 2023-02-24 00:00:00 2023-02-24 00:00:00 Outpatient LEXY STAHL [id number] [facility] 2023-02-22 15:21:24 2023-02-22 15:21:24 Outpatient SFA SFA [id number] [facility] [place] 2023-02-15 09:30:00 2023-02-15 09:30:00 Outpatient JESSICA KAREN LEXY STAHL [id number] Lexy [facility] 2023-02-03 15:20:00 2023-02-03 15:20:00 Outpatient FRANKY GARSIAMARQUEZ STAHL [id number] [facility] 2023-02-02 11:45:00 2023-02-02 11:45:00 Outpatient PREZADIANN Bae LEXY STAHL [id number] [facility] 2023-02-02 00:00:00 2023-02-02 00:00:00 Outpatient MD LEXY SILVEIRA [id number] [facility] 2023-02-02 00:00:00 2023-02-02 00:00:00 Outpatient PREZAS, DIANNROGERIO STAHL [id number] [facility] 2023-02-02 00:00:00 2023-02-02 00:00:00 Outpatient PREZASDIANN LEXY STAHL [id number] [facility] 2023-02-01 14:40:00 2023-02-01 14:40:00 Outpatient DIAZDENIA HERRERA LEXY STAHL [id number] [facility] 2023-01-22 10:22:15 2023-01-22 10:22:15 Outpatient SFA SFA [id number] [place] 2023-01-21 00:00:00 2023-01-21 00:00:00 Outpatient PREZADIANN Bae LEXY STAHL [id number] [facility] 2023-01-21 00:00:00 2023-01-21 00:00:00 Outpatient PREZASDIANN LEXY STAHL [id number] [facility] 2023-01-20 00:00:00 2023-01-20 00:00:00 Outpatient PREZASDIANN LEXY STAHL [id number] Lexy Seybold 2023-01-19 15:55:00 2023-01-19 15:55:00 Outpatient LABDalia HERNANDEZSEY [id number] [facility] 2023-01-19 15:00:00 2023-01-19 15:00:00 Outpatient DIANN SADLER LEXY STAHL [id number] [facility] 2022-12-30 11:51:08 2022-12-30 11:51:08 Outpatient SFA SFA [id number] [place] 2022-12-21 11:35:05 2022-12-21 11:35:05 Outpatient SFA SFA [id number] [place] 2022-11-29 10:35:36 2022-11-29 10:35:36 Outpatient SFA SFA [id number] Philip A[place] 2022-11-17 16:24:03 2022-11-17 16:24:03 Outpatient SFA SFA [id number] [place] 2022-11-03 13:33:54 2022-11-03 13:33:54 Outpatient SFA SFA [id number] [place] 2022-11-01 11:06:48 2022-11-01 11:06:48 Outpatient SFA SFA [id number] [place] 2022-10-20 09:10:03 2022-10-20 09:10:03 Outpatient SFA SFA [id number] Philip Colby Codey 2022-10-19 16:00:00 2022-10-19 16:00:00 Outpatient ANTONIO ALEMAN [id number] [facility] 2022-10-15 08:30:00 2022-10-15 08:30:00 Outpatient ANTONIO ALEMAN [id number] [facility] 2022-08-02 09:56:02 2022-08-02 09:56:02 Outpatient SFA SFA [id number] Philip Colby Codey 2022-07-19 10:54:12 2022-07-19 10:54:12 Outpatient SFA SFA [id number] Philip Colby Codey 2022-07-12 13:01:10 2022-07-12 13:01:10 Outpatient SFA SFA [id number] [place] 2022-07-06 14:38:17 2022-07-06 14:38:[address] [facility] [id number] [place] 2022-07-06 00:00:00 2022-07-06 00:00:00 Outpatient Visit [id number] 2022-06-29 11:06:43 2022-06-29 11:06:[address] [facility] [id number] [place] 2022-06-29 00:00:00 2022-06-29 00:00:00 Outpatient Visit [id number] 2022-06-23 10:34:08 2022-06-23 10:34:[address] [facility] [id number] [place] 2022-06-23 00:00:00 2022-06-23 00:00:00 Outpatient Visit [id number] 0823-09-29 11:37:54 2022-06-03 11:37:[address] [facility] [id number] [place] 2022-05-27 00:00:00 2022-05-27 00:00:00 Outpatient Visit [id number] 00:00:00 2021-05-18 00:00:00 Patient Secure Msg Doctor Unassigned, [place] [facility] 1.2.840.114 [id number] [id number] [facility] 2021-05-17 12:20:00 2021-05-17 13:32:00 Emergency Dwayne [facility] 1.2.840.114 [id number] [id number] [facility] 2021-05-17 11:46:00 2021-05-17 11:46:00 Emergency X [facility] E[facility] [id number] [facility] Results Test Description Test Time Test Comments Results Result Co mments Source PSA, [id number] 04:57:49* Test Item Value Reference Range Interpretation Comme nts PSA, TOTAL (test code = 2606) 1.93 NG/ML See_Comment NOTE: Methodolog y is Corazon Nakul Electrochemiluminescence Immunoassay traceable to WHO reference standard 96/760. [Automated message] The system which generated this result transmitted reference range: <=4.00. The reference range was not used to interpret this result as normal/abnormal. CBC W/AUTO DIFF WITH [id number] 03:27:34* Test Item Value Reference Range Interpretation [...] = 1065) 0.0 /100 WBC'S See_Comment [Automated Cytocentricsa ge] The system which generated this result [...] 0.00-0.10 ABS NUCLEATED RBCS (test code = 70351) 0.00 K/UL 0.00-0.11 LIPID [id number] 03:20:10* Test Item Value Reference Range Interpretation [...] SPECIMENS. FOR MOREINFORMATION, SEE CLIENT ANNOUNCEMENT AT [email or web address] [email or web address] RATIO LDL/HDL (test code = 2238) 2.20 RATIO <3.55 [id number] 06:44:59* Test Item Value Reference Range Interpretation Comme nts TESTOSTERONE (test code = 2830) 181 NG/DL 300-890 L UNLESS OTHERWISE INDICATED, ALL TESTING PERFORMED [facility] [employer] [address] [place] [address], [place] [address] SALES ACCOUNT EXECUTIVE: DIAMOND ODELL M.D. CLIA NUMBER [id number] [place]. [id number] 00:00:00* Test Item Value Reference Range Interpretation Comme nts TESTOSTERONE (test code = 2830) 181 NG/DL TSH, THIRD [id number] 06:46:28* Test Item Value Reference Range Interpretation Comme nts TSH, THIRD GENERATION (test code = 2821) 2.570 UIU/ML 0.400-4.100 SEDIMENTATION [id number] 06:44:10* Test Item Value Reference Range Interpretation Comme nts SEDIMENTATION RATE (test cod e = 1017) 16 MM/HOUR 0-15 H [id number] 05:48:38* Test Item Value Reference Range Interpretation Comme nts TESTOSTERONE (test code = 2830) 173 NG/DL 300-890 L C-REACTIVE [id number] 05:06:35* Test Item Value Reference Range Interpretation Comme nts C-REACTIVE PROTEIN (test cod e = 3513) 0.7 MG/DL <0.5 H [id number] 04:49:21* Test Item Value Reference Range Interpretation Comme nts CREATININE (test code = 2214) 1.07 MG/DL 0.80-1.40 eGFR (2020 CKD-EPI) (test code = 20610) 81 ML/MIN/1.73 >60 UNLESS OTHER PERSON INDICATED, ALL TESTING PERFORMED [facility] [address] [place] [address] SALES ACCOUNT EXECUTIVE: DIAMOND ODELL M.D. CLIA NUMBER [id number] [place]. [id number] CBC W/AUTO DIFF WITH [id number] 04:05:47* Test Item Value Reference Range Interpretation [...] 0.00-0.10 ABS NUCLEATED RBCS (test code = 98451) 0.00 K/UL 0.00-0.11 CBC W/AUTO [id number] 00:00:00* Test Item Value Reference Range Interpretation [...] ABS NUCLEATED RBCS (test cod e = 31353) 0.00 K/UL [id number] 00:00:00* Test Item Value Reference Range Interpretation Comme nts TESTOSTERONE (test code = 2830) 173 NG/DL TSH, THIRD [id number] 00:00:00* Test Item Value Reference Range Interpretation Comme nts TSH, THIRD GENERATION (test code = 2821) 2.570 UIU/ML SEDIMENTATION [id number] 00:00:00* Test Item Value Reference Range Interpretation Comme nts SEDIMENTATION RATE (test cod e = 1017) 16 MM/HOUR C-REACTIVE [id number] 00:00:00* Test Item Value Reference Range Interpretation Comme nts C-REACTIVE PROTEIN (test cod e = 3513) 0.7 MG/DL [id number] 00:00:00* Test Item Value Reference Range Interpretation Comme nts CREATININE (test code = 2214) 1.07 MG/DL eGFR (2020 CKD-EPI) (test co de = 07476) 81 ML/MIN/1.73 CBC W/AUTO [id number] 00:00:00* Test Item Value Reference Range Interpretation [...] ABS NUCLEATED RBCS (test cod e = 55327) 0.00 K/UL [id number] 00:00:00* Test Item Value Reference Range Interpretation Comme nts TESTOSTERONE (test code = 2830) 173 NG/DL TSH, THIRD [id number] 00:00:00* Test Item Value Reference Range Interpretation Comme nts TSH, THIRD GENERATION (test code = 2821) 2.570 UIU/ML SEDIMENTATION [id number] 00:00:00* Test Item Value Reference Range Interpretation Comme nts SEDIMENTATION RATE (test cod e = 1017) 16 MM/HOUR C-REACTIVE [id number] 00:00:00* Test Item Value Reference Range Interpretation Comme nts C-REACTIVE PROTEIN (test cod e = 3513) 0.7 MG/DL [id number] 00:00:00* Test Item Value Reference Range Interpretation Comme nts CREATININE (test code = 2214) 1.07 MG/DL eGFR (2020 CKD-EPI) (test co de = 66367) 81 ML/MIN/1.73 CBC W/AUTO [id number] 00:00:00* Test Item Value Reference Range Interpretation [...] ABS NUCLEATED RBCS (test cod e = 57303) 0.00 K/UL [id number] 00:00:00* Test Item Value Reference Range Interpretation Comme nts TESTOSTERONE (test code = 2830) 173 NG/DL TSH, THIRD [id number] 00:00:00* Test Item Value Reference Range Interpretation Comme nts TSH, THIRD GENERATION (test code = 2821) 2.570 UIU/ML SEDIMENTATION [id number] 00:00:00* Test Item Value Reference Range Interpretation Comme nts SEDIMENTATION RATE (test cod e = 1017) 16 MM/HOUR C-REACTIVE [id number] 00:00:00* Test Item Value Reference Range Interpretation Comme nts C-REACTIVE PROTEIN (test cod e = 3513) 0.7 MG/DL [id number] 00:00:00* Test Item Value Reference Range Interpretation Comme nts CREATININE (test code = 2214) 1.07 MG/DL eGFR (2020 CKD-EPI) (test co de = 95503) 81 ML/MIN/1.73 HEMOGLOBIN [id number] 10:19:29* Test Item Value Reference Range Interpretation Comme nts HEMOGLOBIN A1c (test code = 60072) 5.9 % 4.2-5.6 H COMPREHENSIVE METABOLIC [id number] 04:39:34* Test Item Value Reference Range Interpretation Comme nts GLUCOSE (test code = 2216) 126 MG/DL 70-99 H BUN (test code = 2207) 20 MG/DL 6-20 CREATININE (test code = 2213) 1.12 MG/DL 0.80-1.40 eGFR (2020 CKD-EPI) (test code = 45422) 77 ML/MIN/1.73 >60 CALC BUN/CREAT (test code = 5) 18 RATIO 6-28 SODIUM (test code = 2230) 141 MEQ/L 133-146 POTASSIUM (test code = 2227) 3.8 MEQ/L 3.5-5.4 CHLORIDE (test code = 5) 102 MEQ/L 95-107 CARBON DIOXIDE (test code [...] code = 2219) 42 U/L 5-50 LIPID [id number] 04:39:34* Test Item Value Reference Range Interpretation [...] SPECIMENS. FOR MOREINFORMATION, SEE CLIENT ANNOUNCEMENT AT [email or web address] RISK RATIO LDL/HDL (test code = 2238) 3.35 RATIO <3.55 UNLESS OTHERW ISE INDICATED, ALL TESTING PERFORMED [facility] [employer] [address] [place] [id number] SALES ACCOUNT EXECUTIVE: DIAMOND ODELL M.D. CLIA NUMBER [id number] [facility]. [id number] COMPREHENSIVE METABOLIC [id number] 00:00:00* Test Item Value Reference Range Interpretation Comme nts GLUCOSE (test code = 2217) 126 MG/DL BUN (test code = 2208) 20 MG/DL CREATININE (test code = 2214) 1.12 MG/DL eGFR (2020 CKD-EPI) (test co de = 30019) 77 ML/MIN/1.73 CALC BUN/CREAT (test code = [...] (test code = 2219) 42 U/L HEMOGLOBIN [id number] 00:00:00* Test Item Value Reference Range Interpretation Comme nts HEMOGLOBIN A1c (test code = 23666) 5.9 % LIPID [id number] 00:00:00* Test Item Value Reference Range Interpretation Comme nts CHOLESTEROL (test code = 2210) 246 MG/DL TRIGLYCERIDES (test code = 2232) 209 MG/DL HDL CHOLESTEROL (test code = 2220) 48 MG/DL CALC LDL CHOL (test code = 2237) 161 MG/DL RISK RATIO LDL/HDL (test cod e = 2238) 3.35 RATIO COMPREHENSIVE METABOLIC [id number] 00:00:00* Test Item Value Reference Range Interpretation Comme nts GLUCOSE (test code = 2217) 126 MG/DL BUN (test code = 2208) 20 MG/DL CREATININE (test code = 2214) 1.12 MG/DL eGFR (2020 CKD-EPI) (test co de = 51297) 77 ML/MIN/1.73 CALC BUN/CREAT (test code = [...] (test code = 2219) 42 U/L HEMOGLOBIN [id number] 00:00:00* Test Item Value Reference Range Interpretation Comme nts HEMOGLOBIN A1c (test code = 54100) 5.9 % LIPID [id number] 00:00:00* Test Item Value Reference Range Interpretation Comme nts CHOLESTEROL (test code = 2210) 246 MG/DL TRIGLYCERIDES (test code = 2232) 209 MG/DL HDL CHOLESTEROL (test code = 2220) 48 MG/DL CALC LDL CHOL (test code = 2237) 161 MG/DL RISK RATIO LDL/HDL (test cod e = 2238) 3.35 RATIO COMPREHENSIVE METABOLIC [id number] 00:00:00* Test Item Value Reference Range Interpretation Comme nts GLUCOSE (test code = 2217) 126 MG/DL BUN (test code = 2208) 20 MG/DL CREATININE (test code = 2214) 1.12 MG/DL eGFR (2020 CKD-EPI) (test co de = 25196) 77 ML/MIN/1.73 CALC BUN/CREAT (test code = [...] (test code = 2219) 42 U/L HEMOGLOBIN [id number] 00:00:00* Test Item Value Reference Range Interpretation Comme nts HEMOGLOBIN A1c (test code = 07522) 5.9 % LIPID [id number] 00:00:00* Test Item Value Reference Range Interpretation Comme nts CHOLESTEROL (test code = 2210) 246 MG/DL TRIGLYCERIDES (test code = 2232) 209 MG/DL HDL CHOLESTEROL (test code = 2220) 48 MG/DL CALC LDL CHOL (test code = 2237) 161 MG/DL RISK RATIO LDL/HDL (test cod e = 2238) 3.35 RATIO HEMOGLOBIN [id number] 05:30:45* Test Item Value Reference Range Interpretation Comme nts HEMOGLOBIN A1c (test code = 44974) 6.2 % 4.2-5.6 H UNLESS OTHERWISE INDICATED, ALL TESTING PERFORMED ATCLINICAL PATHOLOGY [employer] [address] [place] [address] SALES ACCOUNT EXECUTIVE: DIAMOND ODELL M.D. CLIA NUMBER [id number] [facility]. [id number] COMPREHENSIVE METABOLIC [id number] 04:18:35* Test Item Value Reference Range Interpretation Comme nts GLUCOSE (test code = 2217) 167 MG/DL 70-99 H BUN (test code = 220) 21 MG/DL 6-20 H CREATININE (test code = 221) 1.18 MG/DL 0.80-1.40 eGFR (2020 CKD-EPI) (test code = 88679) 72 ML/MIN/1.73 >60 CALC BUN/CREAT (test code = 2235) 18 RATIO 6-28 SODIUM (test code = 223) 139 MEQ/L 133-146 POTASSIUM (test code = 2228) 4.3 MEQ/L 3.5-5.4 CHLORIDE (test code = 2215) 100 MEQ/L 95-107 CARBON DIOXIDE (test code = 2206) 29 MEQ/L 19-31 CALCIUM (test code = 220) 9.7 MG/DL 8.5-10.5 PROTEIN, TOTAL (test code = 222) 7.4 G/DL 6.1-8.3 ALBUMIN (test code = 2201) 4.1 G/DL 3.5-5.2 CALC GLOBULIN (test code = 2240) 3.3 G/DL 1.9-3.7 CALC A/G RATIO (test code = 2234) 1.2 RATIO 1.0-2.6 BILIRUBIN, TOTAL (test code = 220) 0.5 MG/DL See_Comment [Automated me ssage] The system which generated this result transmitted reference range: <=1.2. The reference range was not used to interpret this result as normal/abnormal. ALKALINE PHOSPHATASE (test code = 2204) 124 U/L 40-123 H AST (test code = 2218) 17 U/L 9-50 ALT (test code = 2219) 32 U/L 5-50 LIPID [id number] 04:18:35* Test Item Value Reference Range Interpretation [...] SPECIMENS. FOR MOREINFORMATION, SEE CLIENT ANNOUNCEMENT AT [email or web address] RISK RATIO LDL/HDL (test code = 2238) 2.96 RATIO <3.55 COMPREHENSIVE METABOLIC [id number] 00:00:00* Test Item Value Reference Range Interpretation Comme nts GLUCOSE (test code = 2217) 167 MG/DL BUN (test code = 2208) 21 MG/DL CREATININE (test code = 2214) 1.18 MG/DL eGFR (2020 CKD-EPI) (test co de = 75769) 72 ML/MIN/1.73 CALC BUN/CREAT (test code = [...] (test code = 2219) 32 U/L LIPID [id number] 00:00:00* Test Item Value Reference Range Interpretation Comme nts CHOLESTEROL (test code = 2210) 240 MG/DL TRIGLYCERIDES (test code = 2232) 160 MG/DL HDL CHOLESTEROL (test code = 2220) 53 MG/DL CALC LDL CHOL (test code = 2237) 157 MG/DL RISK RATIO LDL/HDL (test cod e = 2238) 2.96 RATIO 2708 HEMOGLOBIN [id number] 00:00:00* Test Item Value Reference Range Interpretation Comme nts HEMOGLOBIN A1c (test code = 91557) 6.2 % COMPREHENSIVE METABOLIC [id number] 00:00:00* Test Item Value Reference Range Interpretation Comme nts GLUCOSE (test code = 2217) 167 MG/DL BUN (test code = 2208) 21 MG/DL CREATININE (test code = 2214) 1.18 MG/DL eGFR (2020 CKD-EPI) (test co de = 69170) 72 ML/MIN/1.73 CALC BUN/CREAT (test code = [...] (test code = 2219) 32 U/L LIPID [id number] 00:00:00* Test Item Value Reference Range Interpretation Comme nts CHOLESTEROL (test code = 2210) 240 MG/DL TRIGLYCERIDES (test code = 2232) 160 MG/DL HDL CHOLESTEROL (test code = 2220) 53 MG/DL CALC LDL CHOL (test code = 2237) 157 MG/DL RISK RATIO LDL/HDL (test cod e = 2238) 2.96 RATIO 2708 HEMOGLOBIN [id number] 00:00:00* Test Item Value Reference Range Interpretation Comme nts HEMOGLOBIN A1c (test code = 13349) 6.2 % COMPREHENSIVE METABOLIC [id number] 00:00:00* Test Item Value Reference Range Interpretation Comme nts GLUCOSE (test code = 2217) 167 MG/DL BUN (test code = 2208) 21 MG/DL CREATININE (test code = 2214) 1.18 MG/DL eGFR (2020 CKD-EPI) (test co de = 36366) 72 ML/MIN/1.73 CALC BUN/CREAT (test code = [...] code = 2219) 32 U/L COMPREHENSIVE METABOLIC [id number] 00:00:00* Test Item Value Reference Range Interpretation Comme nts GLUCOSE (test code = 2217) 167 MG/DL BUN (test code = 2208) 21 MG/DL CREATININE (test code = 2214) 1.18 MG/DL eGFR (2020 CKD-EPI) (test co de = 64380) 72 ML/MIN/1.73 CALC BUN/CREAT (test code = [...] (test code = 2219) 32 U/L LIPID [id number] 00:00:00* Test Item Value Reference Range Interpretation Comme nts CHOLESTEROL (test code = 2210) 240 MG/DL TRIGLYCERIDES (test code = 2232) 160 MG/DL HDL CHOLESTEROL (test code = 2220) 53 MG/DL CALC LDL CHOL (test code = 2237) 157 MG/DL RISK RATIO LDL/HDL (test cod e = 2238) 2.96 RATIO 2708 HEMOGLOBIN [id number] 00:00:00* Test Item Value Reference Range Interpretation Comme nts HEMOGLOBIN A1c (test code = 49961) 6.2 % LIPID [id number] 00:00:00* Test Item Value Reference Range Interpretation Comme nts CHOLESTEROL (test code = 2210) 240 MG/DL TRIGLYCERIDES (test code = 2232) 160 MG/DL HDL CHOLESTEROL (test code = 2220) 53 MG/DL CALC LDL CHOL (test code = 2237) 157 MG/DL RISK RATIO LDL/HDL (test cod e = 2238) 2.96 RATIO 2708 HEMOGLOBIN [id number] 00:00:00* Test Item Value Reference Range Interpretation Comme nts HEMOGLOBIN A1c (test code = 19046) 6.2 % [id number] 17:51:37* Test Item Value Reference Range Interpretation Comme nts APPEARANCE (test code = 7667119922) Clear Clear COLOR (test code = 3011927036) Yellow Yellow PH (test code = 7900024993) 4.8-8.0 SP GRAVITY (test code = 8163432013) 1.003-1.030 GLU U QUAL (test code = 2880061007) Normal Normal BLOOD (test code = 0380740672) Negative Negative KETONES (test code = 5972472206) Negative Negative PROTEIN (test code = 2887-8) Negative Negative UROBILIN (test code = 7478677036) Normal Normal BILIRUBIN (test code = 2352757935) Negative Negative NITRITE (test code = 5823768404) Negative Negative LEUK SADIQ (test code = 4902447363) Negative Negative RBC/HPF (test code = 2879956764) See_Comment [Automated Cytocentricsa Cint] The system which generated this result transmitted reference range: 0 - 3 HPF. The reference range was not used to interpret this result as normal/abnormal. WBC/HPF (test code = 7521248600) See_Comment [Automated Cytocentricsa Cint] The system which generated this result transmitted reference range: 0 - 5 HPF. The reference range was not used to interpret this result as normal/abnormal. BACTERIA (test code = 5884543732) Negative Negative MUCOUS (test code = 0915199218) Slight Negative LPF A SQ EPITH (test code = 0845906978) <1 HPF Lab Interpretation (test code = 52795-3) [id number] 17:51:37* Test Item Value Reference Range Interpretation Comme nts APPEARANCE (test code = 8765724895) Clear Clear COLOR (test code = 2768456145) Yellow Yellow PH (test code = 5156705672) 4.8-8.0 SP GRAVITY (test code = 7761905353) 1.003-1.030 GLU U QUAL (test code = 0057520420) Normal Normal BLOOD (test code = 4098827116) Negative Negative KETONES (test code = 0589145509) Negative Negative PROTEIN (test code = 2887-8) Negative Negative UROBILIN (test code = 3573976050) Normal Normal BILIRUBIN (test code = 9441799142) Negative Negative NITRITE (test code = 0258543989) Negative Negative LEUK SADIQ (test code = 4191116006) Negative Negative RBC/HPF (test code = 0979567688) See_Comment [indico] The system which generated this result transmitted reference range: 0 - 3 HPF. The reference range was not used to interpret this result as normal/abnormal. WBC/HPF (test code = 4960984816) See_Comment [indico] The system which generated this result transmitted reference range: 0 - 5 HPF. The reference range was not used to interpret this result as normal/abnormal. BACTERIA (test code = 0302721891) Negative Negative MUCOUS (test code = 4818098020) Slight Negative LPF A SQ EPITH (test code = 3012592350) <1 HPF Lab Interpretation (test code = 61103-5) [facility] [id number] 00:00:00* Test Item Value Reference Range Interpretation [...] code = 1015) 287 K/UL COMPREHENSIVE METABOLIC [id number] 00:00:00* Test Item Value Reference Range Interpretation Comme nts GLUCOSE (test code = 2217) 84 MG/DL BUN (test code = 2208) 16 MG/DL CREATININE (test code = 2214) 1.03 MG/DL eGFR AMER. (test cod e = 28267) 94 ML/MIN/1.73 eGFR NON- AMER. (test code = 66444) 81 ML/MIN/1.73 CALC BUN/CREAT (test code = [...] (test code = 2219) 31 U/L HEMOGLOBIN [id number] 00:00:00* Test Item Value Reference Range Interpretation Comme nts HEMOGLOBIN A1c (test code = 65304) 5.9 % LIPID [id number] 00:00:00* Test Item Value Reference Range Interpretation Comme nts CHOLESTEROL (test code = 2210) 281 MG/DL TRIGLYCERIDES (test code = 2232) 352 MG/DL HDL CHOLESTEROL (test code = 2220) 49 MG/DL CALC LDL CHOL (test code = 2237) 162 MG/DL RISK RATIO LDL/HDL (test cod e = 2238) 3.30 RATIO CBC W/AUTO [id number] 00:00:00* Test Item Value Reference Range Interpretation [...] code = 1015) 287 K/UL COMPREHENSIVE METABOLIC [id number] 00:00:00* Test Item Value Reference Range Interpretation Comme nts GLUCOSE (test code = 2217) 84 MG/DL BUN (test code = 2208) 16 MG/DL CREATININE (test code = 2214) 1.03 MG/DL eGFR AMER. (test cod e = 40833) 94 ML/MIN/1.73 eGFR NON- AMER. (test code = 84050) 81 ML/MIN/1.73 CALC BUN/CREAT (test code = [...] (test code = 2219) 31 U/L HEMOGLOBIN [id number] 00:00:00* Test Item Value Reference Range Interpretation Comme nts HEMOGLOBIN A1c (test code = 64589) 5.9 % LIPID [id number] 00:00:00* Test Item Value Reference Range Interpretation Comme nts CHOLESTEROL (test code = 2210) 281 MG/DL TRIGLYCERIDES (test code = 2232) 352 MG/DL HDL CHOLESTEROL (test code = 2220) 49 MG/DL CALC LDL CHOL (test code = 2237) 162 MG/DL RISK RATIO LDL/HDL (test cod e = 2238) 3.30 RATIO CBC W/AUTO [id number] 00:00:00* Test Item Value Reference Range Interpretation [...] code = 1015) 287 K/UL CBC W/AUTO [id number] 00:00:00* Test Item Value Reference Range Interpretation [...] code = 1015) 287 K/UL COMPREHENSIVE METABOLIC [id number] 00:00:00* Test Item Value Reference Range Interpretation Comme nts GLUCOSE (test code = 2217) 84 MG/DL BUN (test code = 2208) 16 MG/DL CREATININE (test code = 2214) 1.03 MG/DL eGFR AMER. (test cod e = 10954) 94 ML/MIN/1.73 eGFR NON- AMER. (test code = 20560) 81 ML/MIN/1.73 CALC BUN/CREAT (test code = [...] (test code = 2219) 31 U/L HEMOGLOBIN [id number] 00:00:00* Test Item Value Reference Range Interpretation Comme nts HEMOGLOBIN A1c (test code = 14799) 5.9 % LIPID [id number] 00:00:00* Test Item Value Reference Range Interpretation Comme nts CHOLESTEROL (test code = 2210) 281 MG/DL TRIGLYCERIDES (test code = 2232) 352 MG/DL HDL CHOLESTEROL (test code = 2220) 49 MG/DL CALC LDL CHOL (test code = 2237) 162 MG/DL RISK RATIO LDL/HDL (test cod e = 2238) 3.30 RATIO COMPREHENSIVE METABOLIC [id number] 00:00:00* Test Item Value Reference Range Interpretation Comme nts GLUCOSE (test code = 2217) 84 MG/DL BUN (test code = 2208) 16 MG/DL CREATININE (test code = 2214) 1.03 MG/DL eGFR AMER. (test cod e = 39506) 94 ML/MIN/1.73 eGFR NON- AMER. (test code = 67171) 81 ML/MIN/1.73 CALC BUN/CREAT (test code = [...] (test code = 2219) 31 U/L HEMOGLOBIN [id number] 00:00:00* Test Item Value Reference Range Interpretation Comme nts HEMOGLOBIN A1c (test code = 92336) 5.9 % LIPID [id number] 00:00:00* Test Item Value Reference Range Interpretation Comme nts CHOLESTEROL (test code = 2210) 281 MG/DL TRIGLYCERIDES (test code = 2232) 352 MG/DL HDL CHOLESTEROL (test code = 2220) 49 MG/DL CALC LDL CHOL (test code = 2237) 162 MG/DL RISK RATIO LDL/HDL (test cod e = 2238) 3.30 RATIO COMPREHENSIVE METABOLIC [id number] 00:00:00* Test Item Value Reference Range Interpretation Comme nts GLUCOSE (test code = 2217) 102 MG/DL BUN (test code = 2208) 18 MG/DL CREATININE (test code = 2214) 1.10 MG/DL eGFR AMER. (test cod e = 23691) 88 ML/MIN/1.73 eGFR NON- AMER. (test code = 72606) 76 ML/MIN/1.73 CALC BUN/CREAT (test code = [...] (test code = 2219) 32 U/L LIPID [id number] 00:00:00* Test Item Value Reference Range Interpretation Comme nts CHOLESTEROL (test code = 2210) 262 MG/DL TRIGLYCERIDES (test code = 2232) 189 MG/DL HDL CHOLESTEROL (test code = 2220) 58 MG/DL CALC LDL CHOL (test code = 2237) 166 MG/DL RISK RATIO LDL/HDL (test cod e = 2238) 2.87 RATIO COMPREHENSIVE METABOLIC [id number] 00:00:00* Test Item Value Reference Range Interpretation Comme nts GLUCOSE (test code = 2217) 102 MG/DL BUN (test code = 2208) 18 MG/DL CREATININE (test code = 2214) 1.10 MG/DL eGFR AMER. (test cod e = 99139) 88 ML/MIN/1.73 eGFR NON- AMER. (test code = 63774) 76 ML/MIN/1.73 CALC BUN/CREAT (test code = [...] (test code = 2219) 32 U/L LIPID [id number] 00:00:00* Test Item Value Reference Range Interpretation Comme nts CHOLESTEROL (test code = 2210) 262 MG/DL TRIGLYCERIDES (test code = 2232) 189 MG/DL HDL CHOLESTEROL (test code = 2220) 58 MG/DL CALC LDL CHOL (test code = 2237) 166 MG/DL RISK RATIO LDL/HDL (test cod e = 2238) 2.87 RATIO COMPREHENSIVE METABOLIC [id number] 00:00:00* Test Item Value Reference Range Interpretation Comme nts GLUCOSE (test code = 2217) 102 MG/DL BUN (test code = 2208) 18 MG/DL CREATININE (test code = 2214) 1.10 MG/DL eGFR AMER. (test cod e = 37805) 88 ML/MIN/1.73 eGFR NON- AMER. (test code = 90293) 76 ML/MIN/1.73 CALC BUN/CREAT (test code = [...] (test code = 2219) 32 U/L LIPID [id number] 00:00:00* Test Item Value Reference Range Interpretation Comme nts CHOLESTEROL (test code = 2210) 262 MG/DL TRIGLYCERIDES (test code = 2232) 189 MG/DL HDL CHOLESTEROL (test code = 2220) 58 MG/DL CALC LDL CHOL (test code = 2237) 166 MG/DL RISK RATIO LDL/HDL (test cod e = 2238) 2.87 RATIO COMPREHENSIVE METABOLIC [id number] 00:00:00* Test Item Value Reference Range Interpretation Comme nts GLUCOSE (test code = 2217) 102 MG/DL BUN (test code = 2208) 18 MG/DL CREATININE (test code = 2214) 1.10 MG/DL eGFR AMER. (test cod e = 52117) 88 ML/MIN/1.73 eGFR NON- AMER. (test code = 91099) 76 ML/MIN/1.73 CALC BUN/CREAT (test code = [...] (test code = 2219) 32 U/L LIPID [id number] 00:00:00* Test Item Value Reference Range Interpretation Comme nts CHOLESTEROL (test code = 2210) 262 MG/DL TRIGLYCERIDES (test code = 2232) 189 MG/DL HDL CHOLESTEROL (test code = 2220) 58 MG/DL CALC LDL CHOL (test code = 2237) 166 MG/DL RISK RATIO LDL/HDL (test cod e = 2238) 2.87 RATIO COMPREHENSIVE METABOLIC [id number] 00:00:00* Test Item Value Reference Range Interpretation Comme nts GLUCOSE (test code = 2217) 79 MG/DL BUN (test code = 2208) 14 MG/DL CREATININE (test code = 2214) 0.95 MG/DL eGFR AMER. (test cod e = 18192) 105 ML/MIN/1.73 eGFR NON- AMER. (test code = 20602) 91 ML/MIN/1.73 CALC BUN/CREAT (test code = [...] (test code = 2219) 23 U/L LIPID [id number] 00:00:00* Test Item Value Reference Range Interpretation Comme nts CHOLESTEROL (test code = 2210) 242 MG/DL TRIGLYCERIDES (test code = 2232) 233 MG/DL HDL CHOLESTEROL (test code = 2220) 52 MG/DL CALC LDL CHOL (test code = 2237) 143 MG/DL RISK RATIO LDL/HDL (test cod e = 2238) 2.76 RATIO COMPREHENSIVE METABOLIC [id number] 00:00:00* Test Item Value Reference Range Interpretation Comme nts GLUCOSE (test code = 2217) 79 MG/DL BUN (test code = 2208) 14 MG/DL CREATININE (test code = 2214) 0.95 MG/DL eGFR AMER. (test cod e = 94205) 105 ML/MIN/1.73 eGFR NON- AMER. (test code = 94622) 91 ML/MIN/1.73 CALC BUN/CREAT (test code = [...] (test code = 2219) 23 U/L LIPID [id number] 00:00:00* Test Item Value Reference Range Interpretation Comme nts CHOLESTEROL (test code = 2210) 242 MG/DL TRIGLYCERIDES (test code = 2232) 233 MG/DL HDL CHOLESTEROL (test code = 2220) 52 MG/DL CALC LDL CHOL (test code = 2237) 143 MG/DL RISK RATIO LDL/HDL (test cod e = 2238) 2.76 RATIO COMPREHENSIVE METABOLIC [id number] 00:00:00* Test Item Value Reference Range Interpretation Comme nts GLUCOSE (test code = 2217) 79 MG/DL BUN (test code = 2208) 14 MG/DL CREATININE (test code = 2214) 0.95 MG/DL eGFR AMER. (test cod e = 25082) 105 ML/MIN/1.73 eGFR NON- AMER. (test code = 61080) 91 ML/MIN/1.73 CALC BUN/CREAT (test code = [...] code = 2219) 23 U/L COMPREHENSIVE METABOLIC [id number] 00:00:00* Test Item Value Reference Range Interpretation Comme nts GLUCOSE (test code = 2217) 79 MG/DL BUN (test code = 2208) 14 MG/DL CREATININE (test code = 2214) 0.95 MG/DL eGFR AMER. (test cod e = 30027) 105 ML/MIN/1.73 eGFR NON- AMER. (test code = 29061) 91 ML/MIN/1.73 CALC BUN/CREAT (test code = [...] (test code = 2219) 23 U/L LIPID [id number] 00:00:00* Test Item Value Reference Range Interpretation Comme nts CHOLESTEROL (test code = 2210) 242 MG/DL TRIGLYCERIDES (test code = 2232) 233 MG/DL HDL CHOLESTEROL (test code = 2220) 52 MG/DL CALC LDL CHOL (test code = 2237) 143 MG/DL RISK RATIO LDL/HDL (test cod e = 2238) 2.76 RATIO LIPID [id number] 00:00:00* Test Item Value Reference Range Interpretation Comme nts CHOLESTEROL (test code = 2210) 242 MG/DL TRIGLYCERIDES (test code = 2232) 233 MG/DL HDL CHOLESTEROL (test code = 2220) 52 MG/DL CALC LDL CHOL (test code = 2237) 143 MG/DL RISK RATIO LDL/HDL (test cod e = 2238) 2.76 RATIO COMPREHENSIVE METABOLIC [id number] 00:00:00* Test Item Value Reference Range Interpretation Comme nts GLUCOSE (test code = 2217) 108 MG/DL BUN (test code = 2208) 16 MG/DL CREATININE (test code = 2214) 0.95 MG/DL eGFR AMER. (test cod e = 01438) 107 ML/MIN/1.73 eGFR NON- AMER. (test code = 27130) 92 ML/MIN/1.73 CALCULATED BUN/CREAT (test code = [...] (test code = 2219) 28 U/L LIPID [id number] 00:00:00* Test Item Value Reference Range Interpretation Comme nts CHOLESTEROL (test code = 2210) 249 MG/DL TRIGLYCERIDES (test code = 2232) 156 MG/DL HDL CHOLESTEROL (test code = 2220) 55 MG/DL CALCULATED LDL CHOL (test co de = 2237) 163 MG/DL RISK RATIO LDL/HDL (test cod e = 2238) 2.96 RATIO CBC W/AUTO [id number] 00:00:00* Test Item Value Reference Range Interpretation [...] (test code = 1015) 276 K/UL HEMOGLOBIN [id number] 00:00:00* Test Item Value Reference Range Interpretation Comme nts HEMOGLOBIN A1c (test code = 43566) 5.9 % [id number] 00:00:00* Test Item Value Reference Range Interpretation Comme nts TSH (test code = 2821) 2.1 UIU/ML COMPREHENSIVE METABOLIC [id number] 00:00:00* Test Item Value Reference Range Interpretation Comme nts GLUCOSE (test code = 2217) 108 MG/DL BUN (test code = 2208) 16 MG/DL CREATININE (test code = 2214) 0.95 MG/DL eGFR AMER. (test cod e = 96665) 107 ML/MIN/1.73 eGFR NON- AMER. (test code = 71949) 92 ML/MIN/1.73 CALCULATED BUN/CREAT (test code = [...] (test code = 2219) 28 U/L LIPID [id number] 00:00:00* Test Item Value Reference Range Interpretation Comme nts CHOLESTEROL (test code = 2210) 249 MG/DL TRIGLYCERIDES (test code = 2232) 156 MG/DL HDL CHOLESTEROL (test code = 2220) 55 MG/DL CALCULATED LDL CHOL (test co de = 2237) 163 MG/DL RISK RATIO LDL/HDL (test cod e = 2238) 2.96 RATIO CBC W/AUTO [id number] 00:00:00* Test Item Value Reference Range Interpretation [...] (test code = 1015) 276 K/UL HEMOGLOBIN [id number] 00:00:00* Test Item Value Reference Range Interpretation Comme nts HEMOGLOBIN A1c (test code = 49676) 5.9 % [id number] 00:00:00* Test Item Value Reference Range Interpretation Comme nts TSH (test code = 2821) 2.1 UIU/ML COMPREHENSIVE METABOLIC [id number] 00:00:00* Test Item Value Reference Range Interpretation Comme nts GLUCOSE (test code = 2217) 108 MG/DL BUN (test code = 2208) 16 MG/DL CREATININE (test code = 2214) 0.95 MG/DL eGFR AMER. (test cod e = 64054) 107 ML/MIN/1.73 eGFR NON- AMER. (test code = 36736) 92 ML/MIN/1.73 CALCULATED BUN/CREAT (test code = [...] (test code = 2219) 28 U/L LIPID [id number] 00:00:00* Test Item Value Reference Range Interpretation Comme nts CHOLESTEROL (test code = 2210) 249 MG/DL TRIGLYCERIDES (test code = 2232) 156 MG/DL HDL CHOLESTEROL (test code = 2220) 55 MG/DL CALCULATED LDL CHOL (test co de = 2237) 163 MG/DL RISK RATIO LDL/HDL (test cod e = 2238) 2.96 RATIO COMPREHENSIVE METABOLIC [id number] 00:00:00* Test Item Value Reference Range Interpretation Comme nts GLUCOSE (test code = 2217) 108 MG/DL BUN (test code = 2208) 16 MG/DL CREATININE (test code = 2214) 0.95 MG/DL eGFR AMER. (test cod e = 06344) 107 ML/MIN/1.73 eGFR NON- AMER. (test code = 22806) 92 ML/MIN/1.73 CALCULATED BUN/CREAT (test code = [...] code = 2219) 28 U/L CBC W/AUTO [id number] 00:00:00* Test Item Value Reference Range Interpretation [...] (test code = 1015) 276 K/UL HEMOGLOBIN [id number] 00:00:00* Test Item Value Reference Range Interpretation Comme nts HEMOGLOBIN A1c (test code = 13317) 5.9 % [id number] 00:00:00* Test Item Value Reference Range Interpretation Comme nts TSH (test code = 2821) 2.1 UIU/ML LIPID [id number] 00:00:00* Test Item Value Reference Range Interpretation Comme nts CHOLESTEROL (test code = 2210) 249 MG/DL TRIGLYCERIDES (test code = 2232) 156 MG/DL HDL CHOLESTEROL (test code = 2220) 55 MG/DL CALCULATED LDL CHOL (test co de = 2237) 163 MG/DL RISK RATIO LDL/HDL (test cod e = 2238) 2.96 RATIO CBC W/AUTO [id number] 00:00:00* Test Item Value Reference Range Interpretation [...] (test code = 1015) 276 K/UL HEMOGLOBIN [id number] 00:00:00* Test Item Value Reference Range Interpretation Comme nts HEMOGLOBIN A1c (test code = 26483) 5.9 % [id number] 00:00:00* Test Item Value Reference Range Interpretation Comme nts TSH (test code = 2821) 2.1 UIU/ML
[2024-10-16] MEDS ORDERED: ONDANSETRON 4 MG/2 ML VIAL ONE (07:43)
--- NOTE | 2024-10-16 07:46 | RAD REPORT ---
EXAM: CT brain without contrast HISTORY: Left-sided weakness. COMPARISON: 2023 TECHNIQUE: Multiple contiguous axial images were obtained and a CT of the brain without contrast. Sagittal and coronal reformats were performed. Automated exposure control, adjustment of the mA and/or kV according to patient size, and/or itera tive reconstruction. Unless otherwise specified, incidental findings do not require dedicated imaging follow-u FINDINGS: An intracranial bleed is not seen Ventricles are normal caliber No extra-axial fluid collection noted No significant hypodensity within the brain No fluid within the visualized sinuses or mastoids noted. IMPRESSION: No acute intracranial abnormality noted. If the patient's symptoms persist MRI of the brain would be recommended. Rosalind from the emergency room was notified 7:27 AM October 16, 2024
[2024-10-16 07:52] LABS: Absolute Eosinophils 0.3 K/uL (0-0.5); Absolute Lymphocytes (CBC) 2.4 K/uL (0.7-4.9); Absolute Monocytes 0.7 K/uL (0.1-1.3); Basophils % 0.5 % (0-1.3); Eosinophils % 3.8 % (0-4.4); Hematocrit 41.9 % (39.6-49.0); Hemoglobin 14.5 g/dL (13.6-17.9); Lymphocytes % 28.7 % (15.3-44.8); MCH 32.9 pg (27.0-35.0); MCHC 34.6 g/dL (32.0-36.0); MCV 95.3 fL (80-100); MPV 9.6 fL (7.6-11.3); Monocytes % 8.4 % (3.3-12.3); Neutrophils % 58.6 % (41.7-73.7); Platelets 239 thou/uL (152-406); Red Cell Distribution Width 13.4 % (12.1-15.2)
--- NOTE | 2024-10-16 07:54 | RAD REPORT ---
EXAMINATION: CTA HEAD CLINICAL INDICATION: Left-sided weakness. Dizziness TECHNIQUE: Axial CT images were obtained through the head after 100 cc Isovue-370 intravenous contras t utilizing angiographic protocol with 3D post-processing (maximum intensity projection images, volume rendered images and/or shaded surface rendered images). One or more of the following dose red uction techniques were used: Automated exposure control, adjustment of the mA and/or kV according to patient size, and/or iterative reconstruction. Unless otherwise specified, incidental findings do not require dedicated imaging follow-up. COMPARISON: None FINDINGS: Distal internal carotid, basilar, anterior cerebral, middle cerebral and posterior cerebral arteries do not demonstrate a significant stenosis An aneurysm not noted. No large vessel occlusion IMPRESSION: No acute vascular abnormality displayed
--- NOTE | 2024-10-16 07:54 | RAD REPORT ---
EXAMINATION: Neck Angio CLINICAL INDICATION: Left-sided weakness. Dizziness TECHNIQUE: Axial CT images were obtained from the aortic arch to the skull base after intravenous adm inistration of 100 cc Isovue-370 utilizing angiographic protocol. Multiplanar reformats, as well as 3D post-processing (maximum intensity projection images, volume rendered images and/or shaded surface rendered images) were generated and reviewed. One or more of the following dose reduction techniques were used: Automated exposure control, adjustment of the mA and/or kV according to patient size, and/or iterative reconstruction. Unless otherwise specified, incidental findings do not require dedicated imaging follow-up. COMPARISON: No prior exam. FINDINGS: The visualized aortic arch and great vessels do not demonstrate a significant abnormality Mild plaque within the common carotid, internal carotid and external carotid arteries bilaterally. Vertebral arteries are unremarkable. No significant stenosis noted. A dissection is not seen. Methods for NASCET criteria: Mild stenosis, 0% to 49%; Moderate stenosis 50% to 69%; Severe stenosis, 70% to 99% IMPRESSION: No acute vascular abnormality displayed
[2024-10-16 08:04] LABS: PT Prothrombin Time 10.6 SECONDS (9.4-12.5); PTT, Activated Partial Thromb 28.7 SECONDS (24.3-36.9); Protime INR 1.01
[2024-10-16 08:12] LABS: ALT/SGPT 40 U/L (16-61); AST/SGOT 17 U/L (15-37); Albumin 3.3 g/dL (3.4-5.0); Albumin/Globulin Ratio 0.8 (1.1-1.8); Alkaline Phosphatase 105 U/L (45-117); Anion Gap 8.4 mEq/L (5.0-15.0); BUN Blood Urea Nitrogen 21 mg/dL (7-18); Bicarbonate 28 mEq/L (21-32); Bilirubin Total 0.5 mg/dL (0.2-1.0); Globulin 4.2 g/dL (2.3-3.5); Glomerular Filtration Rate 75 ml/min (=/>90); Glucose Level 125 mg/dL (74-106); Magnesium 2.2 mg/dL (1.6-2.4); Potassium 3.4 mEq/L (3.5-5.1); Protein, Total 7.5 g/dL (6.4-8.2); Sodium Level 136 mEq/L (136-145)
--- NOTE | 2024-10-16 08:16 | RAD REPORT ---
Procedure: Chest Single View HISTORY: Dizziness COMPARISON: September 2024 FINDINGS: The lungs appear clear of acute infiltrate. No significant pleural effusion noted. The heart is normal size. IMPRESSION: No acute abnormality is displayed.
[2024-10-16] MEDS ORDERED: MECLIZINE HCL 12.5 MG TAB ONE (08:25)
[2024-10-16 08:28] LABS: Bilirubin Direct < 0.2 mg/dL (0-0.2); Bilirubin Indirect, Calculated 0.3 mg/dL (0.2-0.8)
[2024-10-16] MEDS ORDERED: FOLIC ACID 1 MG TABLET ONE (09:16)
[2024-10-16] MEDS ORDERED: ASPIRIN EC 81 MG TAB PO ONE (09:16)
[2024-10-16] MEDS ORDERED: ATORVASTATIN 40 MG TAB ONE (09:16)
--- NOTE | 2024-10-16 09:18 | EDPHYS ---
Physician Documentation [facility] Name: Soy Frias Age: 59 yrs Sex: Male : 1965 Arrival Date: 10/16/2024 Time: 06:38 Bed 19 Private MD: ED Physician Vinod Olivares HPI: 10/16 07:15 This 59 yrs old Male presents to ER via Wheelchair with complaints of ms3 Dizziness, Nausea. 07:15 59-year-old male with past medical history of hypercholesterolemia, hypertension, TIA ms3 presents to the emergency department for dizziness and nausea that began at 9 PM last night. Patient denies pain. Patient denies any alleviating or inciting factors. Patient states he is unable to walk without having to use objects to balance himself. Patient states he has had similar symptoms 3-4 times previously.. 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 - Infectious Disease History:: Denies. - Social history:: Smoking status: . ROS: 07:15 Constitutional: Negative for fever, and chills. Cardiovascular: Negative for chest ms3 pain, and palpitations. Respiratory: Negative for shortness of breath, cough, wheezing, and pleuritic chest pain, MS/Extremity: Negative for injury and deformity, Skin: Negative for injury, rash, and discoloration, 07:15 Abdomen/GI: Positive for nausea, Negative for abdominal pain, vomiting, 07:15 Neuro: Positive for dizziness, gait disturbance, Exam: 07:56 Constitutional: This is a well developed, well nourished patient who is awake, alert, ms3 and in no acute distress. Head/Face: Normocephalic, atraumatic. Cardiovascular: Regular rate and rhythm with a normal S1 and S2. No gallops, murmurs, or rubs. Normal PMI, no JVD. No pulse deficits. Respiratory: Lungs have equal breath sounds bilaterally, clear to auscultation and percussion. No rales, rhonchi or wheezes noted. No increased work of breathing, no retractions or nasal flaring. Abdomen/GI: Soft, non-tender, with normal bowel sounds. No distension or tympany. No guarding or rebound. No evidence of tenderness throughout. MS/ Extremity: Pulses equal, no cyanosis. Neurovascular intact. Full, normal range of motion. 07:56 ECG was reviewed by the Attending Physician. Vital Signs: 07:14 BP 159 / 96; Pulse 63; Resp 16; Pulse Ox 97% on R/A; iw 08:55 BP 153 / 90; Pulse 76; Resp 16; Pulse Ox 100% ; bp 09:20 BP 112 / 90; Pulse 56; Resp 16; Pulse Ox 97% ; bp NIH Stroke Scale Scores: 07:10 NIHSS Score: 2 bp 07:58 NIHSS Score: 0 ms3 MDM: 07:14 Medical Screening Exam initiated ms3 07:58 Differential diagnosis: CVA, idiopathic dizziness, TIA. ms3 09:31 Data reviewed: vital signs, nurses notes, lab test result(s), EKG, radiologic studies, ms3 and as a result, I will admit patient. Consideration of Admission/Observation Patient was admitted/placed on observation. Management of patient was discussed with the following: Hospitalist: Dr Bowles. Mule Tender: Dr Tracey. I considered the following discharge prescriptions or medication management in the emergency department Medications were administered in the Emergency Department. See MAR. Independent interpretation of the following test(s) in the Emergency Department EKG: See my EKG interpretation above. Counseling: I had a detailed discussion with the patient and/or guardian regarding the historical points, exam findings, and any diagnostic results supporting the discharge/admit diagnosis, lab results, radiology results, the need for further work-up and treatment in the hospital. ED course: Discussed necessity for admission with patient. Patient understands agrees with plan. All questions were answered. Discussed case with Dr. Tracey who would like aspirin, Plavix, statin, folic acid. Discussed case with hospitalist team and they accept admission.. 10/16 07:14 Order name: Basic Metabolic Panel; Complete Time: 09:13 ms3 10/16 07:14 Order name: CBC with Diff; Complete Time: 08:00 ms3 10/16 07:14 Order name: Hepatic Function; Complete Time: 09:13 ms3 10/16 07:14 Order name: High Sensitivity Troponin; Complete Time: 09:13 ms3 10/16 07:14 Order name: Magnesium; Complete Time: 09:13 ms3 10/16 07:14 Order name: Protime (+inr); Complete Time: 08:26 ms3 10/16 07:14 Order name: Ptt, Activated; Complete Time: 08:26 ms3 10/16 07:52 Order name: CREATININE WHOLE BLOOD; Complete Time: 08:00 EDMS 10/16 10:34 Order name: Basic Metabolic Panel EDMS 10/16 10:34 Order name: Basic Metabolic Panel EDMS 10/16 10:34 Order name: Basic Metabolic Panel EDMS 10/16 10:34 Order name: Basic Metabolic Panel EDMS 10/16 10:34 Order name: Basic Metabolic Panel EDMS 10/16 10:34 Order name: CBC with Automated Diff EDMS 10/16 10:34 Order name: CBC with Automated Diff EDMS 10/16 10:34 Order name: CBC with Automated Diff EDMS 10/16 10:34 Order name: CBC with Automated Diff EDMS 10/16 10:34 Order name: CBC with Automated Diff EDMS 10/16 10:34 Order name: T4 Free EDMS 10/16 10:34 Order name: T4 Free EDMS 10/16 10:34 Order name: Thyroid Stimulating Hormone EDMS 10/16 10:34 Order name: Thyroid Stimulating Hormone EDMS 10/16 10:34 Order name: Troponin High Sensitivity EDMS 10/16 10:34 Order name: Troponin High Sensitivity EDMS 10/16 10:34 Order name: Troponin High Sensitivity EDMS 10/16 07:14 Order name: CT Head Angio; Complete Time: 08:00 ms3 10/16 07:14 Order name: CT Neck Angio; Complete Time: 08:00 ms3 10/16 07:14 Order name: CT Stroke Brain w/o Contrast; Complete Time: 07:48 ms3 10/16 07:14 Order name: Stroke CXR 1 View; Complete Time: 08:26 ms3 10/16 08:02 Order name: Brain Wo Cont; Complete Time: 10:26 EDMS 10/16 10:34 Order name: Physical Therapy Consult EDMS 10/16 07:14 Order name: Accucheck; Complete Time: 07:54 ms3 10/16 07:14 Order name: Cardiac monitoring; Complete Time: 07:54 ms3 10/16 07:14 Order name: EKG - Nurse/Tech; Complete Time: 07:54 ms3 10/16 07:14 Order name: IV Saline Lock; Complete Time: 07:54 ms3 10/16 07:14 Order name: Labs collected and sent; Complete Time: 07:54 ms3 10/16 07:14 Order name: NPO; Complete Time: 07:54 ms3 10/16 07:14 Order name: O2 Per Protocol; Complete Time: 07:54 ms3 10/16 07:14 Order name: O2 Sat Monitoring; Complete Time: 07:54 ms3 10/16 07:14 Order name: Stroke Swallow Screen; Complete Time: :54 ms3 EC:56 Rate is 63 beats/min. Rhythm is regular. QRS [place] is Normal. MT interval is normal. QRS ms3 interval is normal. Clinical impression: Normal ECG. Interpreted by me. Reviewed by me. Administered Medications: 07:53 Drug: Ondansetron IVP 4 mg IVP once; over 2 minutes Route: IVP; Site: right antecubital;bp 08:30 Follow up: Response: No adverse reaction bp 08:10 Drug: Meclizine PO 50 mg PO once Route: PO; bp 08:30 Follow up: Response: No adverse reaction bp 08:45 Drug: Aspirin PO 81 mg PO once Route: PO; bp 10:50 Follow up: Response: No adverse reaction bp 08:45 Drug: Atorvastatin PO 40 mg PO once Route: PO; bp 10:50 Follow up: Response: No adverse reaction bp 08:45 Drug: foLIC Acid PO 1 mg PO once Route: PO; bp 10:50 Follow up: Response: No adverse reaction bp Disposition Summary: 10/16/24 09:17 Hospitalization Ordered Notes: Hospitalization Status: Inpatient Admission ms3 Provider: J Luis Bowles ms3 Location: Telemetry/MedSurg (Inpatient) ms3 Condition: Stable ms3 Problem: new ms3 Symptoms: are unchanged ms3 Bed/Room Type: Standard ms3 Room Assignment: 222(10/16/24 10:38) bd Diagnosis - Dizziness ms3 - Essential (primary) hypertension ms3 Forms: - Medication Reconciliation Form ms3 - SBAR form ms3 - Leadership Thank You Letter ms3 NIH Stroke Scale - NIH Stroke Score Date: 10/16/2024 Time: 07:10 Total Score = 2 10. Dysarthria (speech clarity - read or repeat words) - 0(Normal) 11. Extinction and Inattention (visual/tactile/auditory/spatial/personal) - 0(No abnormality) 1a. Level of Consciousness (LOC) - 0(Alert) 1b. Level of Consciousness (LOC) (Month \T\ Age) - 0(Both) 1c. LOC Commands (Open \T\ Closes Eyes/Film Printer) - 0(Both) 2. Best Gaze (Lateral Gaze Paresis) - 0(Normal) 3. Visual Field Loss - 0(No visual loss) 4. Facial Palsy - 0(Normal) 5a. Left Arm: Motor (10-second hold) - 1(Drift) 5b. Right Arm: Motor (10-second hold) - 0(No drift) 6a. Left Leg: Motor (5-second hold - always test supine) - 1(Drift) 6b. Right Leg: Motor (5-second hold - always test supine) - 0(No drift) 7. Limb Ataxia (finger/nose \T\ heel/glass - test with eyes open) - 0(Absent) 8. Sensory Loss (pinprick arms/legs/face) - 0(Normal) 9. Best Language: Aphasia (description/naming/reading) - 0(No aphasia) Initials: bp NIH Stroke Scale - NIH Stroke Score Date: 10/16/2024 Time: 07:58 Total Score = 0 10. Dysarthria (speech clarity - read or repeat words) - 0(Normal) 11. Extinction and Inattention (visual/tactile/auditory/spatial/personal) - 0(No abnormality) 1a. Level of Consciousness (LOC) - 0(Alert) 1b. Level of Consciousness (LOC) (Month \T\ Age) - 0(Both) 1c. LOC Commands (Open \T\ Closes Eyes/Film Printer) - 0(Both) 2. Best Gaze (Lateral Gaze Paresis) - 0(Normal) 3. Visual Field Loss - 0(No visual loss) 4. Facial Palsy - 0(Normal) 5a. Left Arm: Motor (10-second hold) - 0(No drift) 5b. Right Arm: Motor (10-second hold) - 0(No drift) 6a. Left Leg: Motor (5-second hold - always test supine) - 0(No drift) 6b. Right Leg: Motor (5-second hold - always test supine) - 0(No drift) 7. Limb Ataxia (finger/nose \T\ heel/glass - test with eyes open) - 0(Absent) 8. Sensory Loss (pinprick arms/legs/face) - 0(Normal) 9. Best Language: Aphasia (description/naming/reading) - 0(No aphasia) Initials: ms3 Signatures: Dispatcher [employer] EDMS Liane Olson Irene, RN RN iw Brock Keith RN RN bp Sims, Marcus, DO ms3 Corrections: (The following items were deleted from the chart) 07:12 07:11 PMHx: CVA; iw iw 07:15 07:15 Neck Angio+CT.RAD.BRZ ordered. EDMS EDMS 07:15 07:15 CT-STROKE BRAIN W/O CONTRAST+CT.RAD.BRZ ordered. EDMS EDMS 07:15 07:15 Chest Single View+RAD.RAD.BRZ ordered. EDMS EDMS 08:02 07:49 MR STROKE PROTOCOL+MRI.RAD.BRZ ordered. EDMS EDMS 10:38 09:17 ms3 bd
--- NOTE | 2024-10-16 09:18 | ER ---
Nurse's Notes [facility] Name: Soy Frias Age: 59 yrs Sex: Male : 1965 Arrival Date: 10/16/2024 Time: 06:38 Bed 19 Private MD: Diagnosis: Dizziness;Essential (primary) hypertension Presentation: 10/16 07:10 Chief complaint: Patient states: dizziness and nausea since last night , has had iw previous episodes in past. Coronavirus screen: At this time, the client does not indicate any symptoms associated with coronavirus-19. Ebola Screen: No symptoms or risks identified at this time. Initial Sepsis Screen: Does the patient meet any 2 criteria? No. Patient's initial sepsis screen is negative. Does the patient have a suspected source of infection? No. Patient's initial sepsis screen is negative. Risk Assessment: Do you want to hurt yourself or someone else? Patient reports no desire to harm self or others. Onset of symptoms was October 15, 2024. 07:10 Method Of Arrival: Wheelchair iw 07:10 Acuity: JANIS 3 iw Triage Assessment: 07:10 The onset of the patients symptoms was October 15, 2024 at 21:00. General: Appears bp distressed, obese, Behavior is cooperative, appropriate for age, anxious. Pain: Denies pain. EENT: No deficits noted. Neuro: Level of Consciousness is awake, alert, obeys commands, Oriented to Appropriate for age Advertising Strategist are weak on left Gait is unsteady, Speech is normal, Reports dizziness, weakness. Cardiovascular: No deficits noted. Respiratory: No deficits noted. GI: Reports nausea. : No signs and/or symptoms were reported regarding the genitourinary system. Derm: No deficits noted. Musculoskeletal: No deficits noted. 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 - Infectious Disease History:: Denies. - Social history:: Smoking status: . Screenin:10 [facility] ED Fall Risk Assessment (Adult) History of falling in the last 3 months, bp including since admission No falls in past 3 months (0 pts) Confusion or Disorientation No (0 pts) Intoxicated or Sedated No (0 pts) Impaired Gait Yes (1 pt) Mobility Assist Device Used No (0 pt) Altered Elimination No (0 pt) Score/Fall Risk Level 0 - 2 = Low Risk Oriented to surroundings. Abuse screen: Denies threats or abuse. Denies injuries from another. Nutritional screening: No deficits noted. Tuberculosis screening: No symptoms or risk factors identified. Assessment: 07:10 VAN Scoring: Arm Drift: Minor drift Visual Disturbance: No visual disturbance noted. bp Aphasia: No aphasia noted. Neglect: No neglect noted. [place] Swallow Protocol Exclusion Criteria: NPO for medical/surgical reason by provider order Yes. TNKase (Tenecteplase) Screening: Contraindications: Patient reports onset of signs and symptoms of stroke greater than 6 hours ago:. GI: Abdomen is non-distended, obese. 07:30 [place] Swallow Protocol Exclusion Criteria: Unable to remain alert for testing: No NPO bp for medical/surgical reason by provider order No Tracheostomy tube present No No thin liquids due to preexisting dysphagia/baseline modified diet thickened liquids No Exclusion Criteria Result: Proceed Brief Cognitive Screen What is your name? Normal, Where are you right now? Normal, What year is it? Normal. Oral Mechanism Examination Facial Symmetry: Normal, Motion: Normal, Lip Closure: Normal, Oral Mechanism Result: Normal. 3 oz Water Swallow Challenge: Pt able to drink all water without stopping, coughing, choking or throat clearing: Yes Result: PASS Notified: Vinod Olivares DO. 08:56 [place] Swallow Protocol Exclusion Criteria: No thin liquids due to preexisting bp dysphagia/baseline modified diet thickened liquids Brief Cognitive Screen What is your name? Normal, Where are you right now? Normal, What year is it? Normal. Oral Mechanism Examination Facial Symmetry: Normal, Motion: Abnormal Lip Closure: Normal, Oral Mechanism Result: Normal. 3 oz Water Swallow Challenge: Pt able to drink all water without stopping, coughing, choking or throat clearing: Yes. 10:49 Reassessment: REPORT FAXED FOR RM 222. bp Vital Signs: 07:14 BP 159 / 96; Pulse 63; Resp 16; Pulse Ox 97% on R/A; iw 08:55 BP 153 / 90; Pulse 76; Resp 16; Pulse Ox 100% ; bp 09:20 BP 112 / 90; Pulse 56; Resp 16; Pulse Ox 97% ; bp NIH Stroke Scale Scores: 07:10 NIHSS Score: 2 bp 07:58 NIHSS Score: 0 ms3 ED Course: 06:44 Patient arrived in ED. gm2 07:06 GIOVANNI GUNTER, RN is Primary Nurse. dd2 07:06 Vinod Olivares DO is Attending Physician. ms3 07:08 Brock Keith, RN is Primary Nurse. bp 07:10 Patient has correct armband on for positive identification. bp 07:11 Triage completed. iw 07:15 Arm band placed on. iw 07:41 CT Head Angio In Process Unspecified. EDMS 07:41 CT Neck Angio In Process Unspecified. EDMS 07:42 CT Stroke Brain w/o Contrast In Process Unspecified. EDMS 07:55 Initial lab(s) drawn, by me, sent to lab. EKG done, by ED staff, reviewed by Vinod Olivares DO. Inserted saline lock: 22 gauge in right antecubital area, using aseptic technique. Blood collected. Flushed with 10 mL NS. 07:59 Stroke CXR 1 View In Process Unspecified. EDMS 09:16 J Luis Bowles MD is Hospitalizing Provider. ms3 10:19 Brain Wo Cont In Process Unspecified. EDMS Administered Medications: 07:53 Drug: Ondansetron IVP 4 mg IVP once; over 2 minutes Route: IVP; Site: right antecubital;bp 08:30 Follow up: Response: No adverse reaction bp 08:10 Drug: Meclizine PO 50 mg PO once Route: PO; bp 08:30 Follow up: Response: No adverse reaction bp 08:45 Drug: Aspirin PO 81 mg PO once Route: PO; bp 10:50 Follow up: Response: No adverse reaction bp 08:45 Drug: Atorvastatin PO 40 mg PO once Route: PO; bp 10:50 Follow up: Response: No adverse reaction bp 08:45 Drug: foLIC Acid PO 1 mg PO once Route: PO; bp 10:50 Follow up: Response: No adverse reaction bp Medication: 07:10 VIS not applicable for this client. bp Outcome: 09:17 Decision to Hospitalize by Provider. ms3 11:52 Patient left the ED. iw NIH Stroke Scale - NIH Stroke Score Date: 10/16/2024 Time: 07:10 Total Score = 2 10. Dysarthria (speech clarity - read or repeat words) - 0(Normal) 11. Extinction and Inattention (visual/tactile/auditory/spatial/personal) - 0(No abnormality) 1a. Level of Consciousness (LOC) - 0(Alert) 1b. Level of Consciousness (LOC) (Month \T\ Age) - 0(Both) 1c. LOC Commands (Open \T\ Closes Eyes/Fisher Diver Net) - 0(Both) 2. Best Gaze (Lateral Gaze Paresis) - 0(Normal) 3. Visual Field Loss - 0(No visual loss) 4. Facial Palsy - 0(Normal) 5a. Left Arm: Motor (10-second hold) - 1(Drift) 5b. Right Arm: Motor (10-second hold) - 0(No drift) 6a. Left Leg: Motor (5-second hold - always test supine) - 1(Drift) 6b. Right Leg: Motor (5-second hold - always test supine) - 0(No drift) 7. Limb Ataxia (finger/nose \T\ heel/glass - test with eyes open) - 0(Absent) 8. Sensory Loss (pinprick arms/legs/face) - 0(Normal) 9. Best Language: Aphasia (description/naming/reading) - 0(No aphasia) Initials: bp NIH Stroke Scale - NIH Stroke Score Date: 10/16/2024 Time: 07:58 Total Score = 0 10. Dysarthria (speech clarity - read or repeat words) - 0(Normal) 11. Extinction and Inattention (visual/tactile/auditory/spatial/personal) - 0(No abnormality) 1a. Level of Consciousness (LOC) - 0(Alert) 1b. Level of Consciousness (LOC) (Month \T\ Age) - 0(Both) 1c. LOC Commands (Open \T\ Closes Eyes/Fisher Diver Net) - 0(Both) 2. Best Gaze (Lateral Gaze Paresis) - 0(Normal) 3. Visual Field Loss - 0(No visual loss) 4. Facial Palsy - 0(Normal) 5a. Left Arm: Motor (10-second hold) - 0(No drift) 5b. Right Arm: Motor (10-second hold) - 0(No drift) 6a. Left Leg: Motor (5-second hold - always test supine) - 0(No drift) 6b. Right Leg: Motor (5-second hold - always test supine) - 0(No drift) 7. Limb Ataxia (finger/nose \T\ heel/glass - test with eyes open) - 0(Absent) 8. Sensory Loss (pinprick arms/legs/face) - 0(Normal) 9. Best Language: Aphasia (description/naming/reading) - 0(No aphasia) Initials: ms3 Signatures: Dispatcher [employer] Rosalind Church RN RN iw Brock Keith RN RN bp Vinod Olivares, DO ms3 Nikki Dailey gm2 GIOVANNI GUNTER RN RN dd2 Corrections: (The following items were deleted from the chart) 07:12 07:11 PMHx: CVA; iw iw 07:17 07:14 Pulse 63bpm; Resp 16bpm; Pulse Ox 97% RA; iw iw
--- NOTE | 2024-10-16 10:22 | RAD REPORT ---
EXAMINATION: MRI BRAIN WITHOUT CONTRAST CLINICAL INDICATION: Dizziness TECHNIQUE: Multiplanar multisequence MR images of the brain were obtained without intravenous contras t. Unless otherwise specified, incidental findings do not require dedicated imaging follow-up. COMPARISON: 2023 MRI. FINDINGS: No significant abnormal signal within the brain. Diffusion weighted/ADC mapping does not demonstrate evidence of an acute infarction. Ventricles are normal caliber. No extra-axial fluid collection. No fluid within the sinuses/mastoid seen IMPRESSION: No acute intracranial abnormalities displayed
[2024-10-16] MEDS ORDERED: MECLIZINE HCL 12.5 MG TAB PO PRN (10:32)
[2024-10-16] MEDS ORDERED: ONDANSETRON 4 MG/2 ML VIAL IV PRN (10:32)
--- NOTE | 2024-10-16 12:41 | EKG ---
Test Date: 2024-10-16 Test Time: 07:50:01 Lodging Manager: BP MEASUREMENT RESULTS: Intervals: Rate: 63 WV: 166 QRSD: 104 QT: 402 QTc: [address]: P: 57 WV: 166 QRS: 55 T: 5 INTERPRETIVE STATEMENTS: Normal sinus rhythm Normal ECG Compared to ECG 06/06/2024 18:26:32 Myocardial infarct finding no longer present Electronically Signed On 10-16-24 12:40:25 BANK VAULT CLERK by Virgil Isbell
[2024-10-16] MEDS: NA CHLORIDE 0.9% 1,000 ML IV SCH (13:11)
[2024-10-16 13:15] VITALS: O2SAT 97
--- NOTE | 2024-10-16 13:24 | P.HP ---
Certification for Inpatient Patient admitted to: Observation With expected LOS: <2 Midnights Patient will require the following post-hospital care: None Practitioner: I am a practitioner with admitting privileges, knowledge of patient current condition, hospital course, and medical plan of care. Services: Services provided to patient in accordance with Admission requirements found in Title 42 Section 412.3 of the Code of Federal Regulations Patient History Date of Service: 10/16/24 History of Present Illness: 59-year-old male presents to the emergency department chief complaint of dizziness. He reports that the symptoms began last night around 2100. He reports similar episodes in the past, last year he had a stroke affecting his left side, he still has some paresthesias affecting his left upper and lower extremity. CT head along with CTA of the head and neck were negative for acute findings or LVO. His labs are unremarkable, he is still having an unsteady gait in ED prior wishes to admit under observation for further evaluation and management. Patient reports multiple episodes in the past, he feels as if they are brought on by stress and it typically last for couple of days, sometimes the medications he gets at the hospital help. Allergies No Known Allergies Allergy (Verified 01/06/23 19:25) Home Medications: Lisinopril/Hydrochlorothiazide [Lisinopril-Hctz 20-12.5 mg Tab] 2 tab PO DAILY 02/29/20 Amlodipine [Norvasc*] 10 mg PO DAILY #30 tab 01/07/23 Carvedilol [Coreg] 6.25 mg PO DAILY 02/24/23 Sildenafil Citrate 50 mg PO DAILY PRN 02/24/23 Atorvastatin Calcium [Lipitor] 40 mg PO BEDTIME #30 tab 03/01/23 - Past Medical/Surgical History Diabetic: No -: HTN -: HLD -: CVA -: None Psychosocial/ Personal History: Patient lives at home alone - Social History Alcohol use: No CD- Drugs: No Caffeine use: Yes Review of Systems 10-point ROS is otherwise unremarkable General: Malaise Neurological: Other (Dizziness) Physical Examination - Vital Signs Temperature: 97.9 F Blood Pressure: 163/94 Pulse: 57 Respirations: 18 Pulse Ox (%): 98 - Physical Exam General: Alert, In no apparent distress, Oriented x3 HEENT: Atraumatic, PERRLA, EOMI Neck: Supple, 2+ carotid pulse no bruit, No LAD Respiratory: Clear to auscultation bilaterally, Normal air movement Cardiovascular: Regular rate/rhythm, Normal S1 S2 Gastrointestinal: Normal bowel sounds, No tenderness Musculoskeletal: No tenderness Integumentary: No rashes Neurological: Normal gait, Normal speech, Normal strength at 5/5 x4 extr, Normal tone, Normal affect, Other (NIH0, unsteady gait) Lymphatics: No axilla or inguinal lymphadenopathy - Studies Laboratory Data (last 24 hrs) 10/16/24 10/16/24 10/16/24 07:40 07:40 07:40 WBC 8.50 Hgb 14.5 Hct 41.9 Plt Count 239 PT 10.6 INR 1.01 APTT 28.7 Sodium 136 Potassium 3.4 L BUN 21 H Creatinine 1.12 Glucose 125 H Magnesium 2.2 Total Bilirubin 0.5 AST 17 ALT 40 Alkaline Phosphatase 105 Assessment and Plan - Plan Assessment: Dizziness-R/O CVA HTN HLD Plan: Dizziness-R/O CVA CT head w/o negative for acute findings CTA head/neck negative for LVO LKW 2 at 2100 MRI brain w/o no signs of acute cva Will trial meclizine and have PT work with him HTN HLD Continue home meds when verified DVT PPX:Lovenox Code status:Full Discharge Plan: Home Plan to discharge in: 24 Hours - Advance Directives Does patient have a Living Will: No Does patient have a Durable POA for Healthcare: No - Code Status/Comfort Care Code Status Assessed: Yes (Full code) Critical Care: No Time Spent Managing Pts Care (In Minutes): 63
[2024-10-16 18:26] VITALS: BMI 43.8
[2024-10-16] MEDS: ATORVASTATIN 40 MG TAB PO SCH (20:06)
[2024-10-17 05:21] LABS: Absolute Basophils 0.1 K/uL (0-0.5); Absolute Eosinophils 0.4 K/uL (0-0.5); Absolute Lymphocytes (CBC) 2.9 K/uL (0.7-4.9); Absolute Monocytes 0.6 K/uL (0.1-1.3); Absolute Neutrophil 4.6 K/uL (1.8-8.0); Basophils % 0.7 % (0-1.3); Eosinophils % 4.5 % (0-4.4); Hematocrit 40.3 % (39.6-49.0); Hemoglobin 14.1 g/dL (13.6-17.9); Lymphocytes % 33.6 % (15.3-44.8); MCH 33.5 pg (27.0-35.0); MCHC 34.9 g/dL (32.0-36.0); MPV 9.7 fL (7.6-11.3); Monocytes % 7.5 % (3.3-12.3); Neutrophils % 53.7 % (41.7-73.7); Nucleated Red Blood Cells % 0.1 % (0-0); Platelets 227 thou/uL (152-406); Red Cell Distribution Width 13.7 % (12.1-15.2)
[2024-10-17 05:52] LABS: Anion Gap 7.5 mEq/L (5.0-15.0); Potassium 3.5 mEq/L (3.5-5.1); Thyroid Stimulating Hormone 2.3 uIU/mL (0.358-3.740); Troponin High Sensitivity 33.9 pg/mL (<58.9)
[2024-10-17] MEDS: ACETAMINOPHEN 500 MG TAB PO ONE (08:41)
[2024-10-17] MEDS: carvediloL 3.125 MG TAB PO SCH (09:40)
[2024-10-17] MEDS: AMLODIPINE 10 MG TAB PO SCH (09:40)
[2024-10-17] MEDS: hydroCHLOROthiazide 25 MG TAB PO SCH (09:40)
[2024-10-17] MEDS: POTASSIUM CL SA 10 MEQ TAB PO ONE (09:41)
[2024-10-17] MEDS: ENOXAPARIN 40 MG/0.4 ML SQ SCH (09:41)
[2024-10-17] MEDS: lisinopriL 20 MG TAB PO SCH (10:00)
[2024-10-17] MEDS: DIAZEPAM 2 MG TABLET PO ONE (12:55)
--- NOTE | 2024-10-17 15:51 | P.PN ---
Date of Service: 10/17/24 Subjective: Still with dizziness/vertigo symptoms No other acute events overnight ROS: 10 point ROS as noted above, otherwise negative Physical exam GEN: Alert, oriented, NAD HEENT: Normal conjunctiva, sclera anicteric CV: Regular rate and rhythm, no edema Pulm: Nonlabored respirations on room air ABD: Soft, nontender, nondistended MSK: No joint tenderness Integumentary: No rashes Neuro: Normal speech, normal affect, nystagmus present with [place]-Hallpike/Patrica Vitals reviewed Assessment: Dizziness-suspect BPPV HTN HLD Plan: Dizziness-suspect BPPV CT head w/o negative for acute findings CTA head/neck negative for LVO LKW 10/15 at 2100 MRI brain w/o no signs of acute cva Will trial meclizine and have PT work with him Attempted [place]-Hallpike and Patrica today with minimal relief Patient still with unstable gait, lives at home alone at high risk for falls Continue as needed meclizine, will repeat Patrica tomorrow and work on gait training HTN HLD Continue home meds when verified DVT PPX:Lovenox Code status:Full Discharge Plan: Home Plan to discharge in: 24 Hours Time Spent Managing Pts Care (In Minutes): 35
[2024-10-18 04:37] LABS: Absolute Eosinophils 0.4 K/uL (0-0.5); Absolute Lymphocytes (CBC) 2.7 K/uL (0.7-4.9); Absolute Monocytes 0.7 K/uL (0.1-1.3); Absolute Neutrophil 3.8 K/uL (1.8-8.0); Basophils % 0.5 % (0-1.3); Eosinophils % 5.5 % (0-4.4); Hematocrit 40.5 % (39.6-49.0); Hemoglobin 13.8 g/dL (13.6-17.9); Lymphocytes % 35.4 % (15.3-44.8); MCH 32.6 pg (27.0-35.0); MCHC 34.1 g/dL (32.0-36.0); MCV 95.5 fL (80-100); MPV 9.8 fL (7.6-11.3); Monocytes % 8.8 % (3.3-12.3); Neutrophils % 49.8 % (41.7-73.7); Platelets 223 thou/uL (152-406); RBC Red Blood Cell Count 4.24 M/uL (4.33-5.43); Red Cell Distribution Width 13.8 % (12.1-15.2)
[2024-10-18 05:06] LABS: Anion Gap 7.5 mEq/L (5.0-15.0); Potassium 3.5 mEq/L (3.5-5.1)
[2024-10-18] MEDS: POTASSIUM CL SA 10 MEQ TAB PO ONE (09:05)
[2024-10-18 09:37] VITALS: BP 158/89; TEMP 97.5
--- NOTE | 2024-10-18 10:28 | P.DS ---
Admission Date: 10/17/24 Discharge Date: 10/18/24 Disposition: ROUTINE DISCHARGE Discharge Condition: GOOD Brief History of Present Illness: 59-year-old male presents to the emergency department chief complaint of dizziness. He reports that the symptoms began last night around 2100. He reports similar episodes in the past, last year he had a stroke affecting his left side, he still has some paresthesias affecting his left upper and lower extremity. CT head along with CTA of the head and neck were negative for acute findings or LVO. His labs are unremarkable, he is still having an unsteady gait in ED prior wishes to admit under observation for further evaluation and management. Patient reports multiple episodes in the past, he feels as if they are brought on by stress and it typically last for couple of days, sometimes the medications he gets at the hospital help. Hospital Course: Assessment: Dizziness-suspect BPPV HTN HLD Patient was admitted to the hospital for dizziness, MRI of the brain was obtained which was negative for acute CVA. His symptoms persisted he did demonstrate nystagmus with [place]-Hallpike maneuver primarily affecting his right side it appeared. Patrica was performed on right and left side with mild improvement initially although his symptoms did resolve overnight now. He is stable for discharge and outpatient follow-up, he was given instructions on performing the Patrica maneuver, he may also take meclizine 25 mg every 6 hours as needed [id number] for dizziness/vertiginous symptoms. He is counseled on the warning signs of stroke and when it would be appropriate to return to the hospital versus attempting Patrica prior to ER evaluation. Vital Signs/Physical Exam: Temp Pulse Resp BP Pulse Ox 97.5 F 62 12 158/89 H 96 10/18/24 08:00 10/18/24 08:00 10/18/24 08:00 10/18/24 08:00 10/18/24 08:00 General: Alert, In no apparent distress, Oriented x3 HEENT: Atraumatic, PERRLA Neck: Supple, JVD not distended Respiratory: Clear to auscultation bilaterally, Normal air movement Cardiovascular: Regular rate/rhythm, Normal S1 S2 Gastrointestinal: Normal bowel sounds, No tenderness Musculoskeletal: No tenderness Integumentary: No rashes Neurological: Normal speech, Normal tone, Normal affect Laboratory Data at Discharge: WBC 7.70 thou/uL (4.3-10.9) 10/18/24 04:04 Hgb 13.8 g/dL (13.6-17.9) 10/18/24 04:04 Hct 40.5 % (39.6-49.0) 10/18/24 04:04 Plt Count 223 thou/uL (152-406) 10/18/24 04:04 PT 10.6 SECONDS (9.4-12.5) 10/16/24 07:40 INR 1.01 10/16/24 07:40 APTT 28.7 SECONDS (24.3-36.9) 10/16/24 07:40 Sodium 138 mEq/L (136-145) 10/18/24 04:04 Potassium 3.5 mEq/L (3.5-5.1) 10/18/24 04:04 BUN 22 mg/dL (7-18) H 10/18/24 04:04 Creatinine 1.08 mg/dL (0.70-1.30) 10/18/24 04:04 Glucose 103 mg/dL (74-106) 10/18/24 04:04 Magnesium 2.2 mg/dL (1.6-2.4) 10/16/24 07:40 Total Bilirubin 0.5 mg/dL (0.2-1.0) 10/16/24 07:40 AST 17 U/L (15-37) 10/16/24 07:40 ALT 40 U/L (16-61) 10/16/24 07:40 Alkaline Phosphatase 105 U/L (45-117) 10/16/24 07:40 LDL Cholesterol Direct 120 mg/dL (100-129) 10/17/24 04:49 Home Medications: Lisinopril/Hydrochlorothiazide [Lisinopril-Hctz 20-12.5 mg Tab] 2 tab PO DAILY 02/29/20 Amlodipine [Norvasc*] 10 mg PO DAILY #30 tab 01/07/23 Carvedilol [Coreg] 6.25 mg PO DAILY 02/24/23 Sildenafil Citrate 50 mg PO DAILY PRN 02/24/23 Atorvastatin Calcium [Lipitor] 40 mg PO BEDTIME #30 tab 03/01/23 Meclizine HCl [Antivert*] 25 mg PO Q6H PRN tab 10/18/24 Physician Discharge Instructions: Patient was admitted to the hospital for dizziness, MRI of the brain was obtained which was negative for acute CVA. His symptoms persisted he did demonstrate nystagmus with [place]-Hallpike maneuver primarily affecting his right side it appeared. Patrica was performed on right and left side with mild improvement initially although his symptoms did resolve overnight now. He is stable for discharge and outpatient follow-up, he was given instructions on performing the Patrica maneuver, he may also take meclizine 25 mg every 6 hours as needed [id number] for dizziness/vertiginous symptoms. He is counseled on the warning signs of stroke and when it would be appropriate to return to the hospital versus attempting Patrica prior to ER evaluation. Diet: Regular Activity: Ad viola Followup: Murphy Hodge DO [Primary Care Provider] - 1-2 Weeks Time spent managing pt's care (in minutes): 45
== END 2024-10-18 10:32 | disposition home or self-care (01) | DRG 149 ==
LOC: ER 06:38 → ERHOLD 10:30 → 2ND 10:58 → OBSVTOIN 10-17 15:49
PROVIDERS: ADMIT Hospitalist; ATTEND Hospitalist
DX: H81.10 Benign paroxysmal vertigo, unspecified ear (principal); I69.354 Hemiplegia and hemiparesis following cerebral infarction affecting left non-dominant side; I10 Essential (primary) hypertension; R29.702 NIHSS score 2
CPT/HCPCS: 36415; 70450; 70496; 70498; 70551; 71045; 80048; 80076; 82565; 83735; 84439; 84443; 84484; 85025; 85610; 85730; 93005; 96374; 97161; 99285; G0378; J1650; J2405; J7030; J8597; Q9967

== ENCOUNTER 2024-10-30 17:37 | Emergency (ER) | payer OTHER ==
--- OUTSIDE RECORDS SUMMARY | 2024-10-30 17:44 | XMS REPORT | Continuity of Care Document ---
Author Name Unknown Address [address] [facility] [address] [place] [address] [facility] Address [address] [facility] [address] [place] [address] Care Team Providers Care Machine Bander And Cellophaner Name Role Phone Philip Colby [facility] Physician DIANN SADLER Attending Clinician Unavailable ARMAND LEONE Attending Clinician Unavailable TRACY SIDHU Attending Clinician Unavailable АНДРЕЙ WHITLOCK Attending Clinician Unavailable MD DOMONIQUE Attending Clinician Unavailab le LAB90 Attending Clinician Unavailable RASHMI GONZÁLES Attending Clinician Unavailable BRIONNA CEBALLOS Attending Clinician Unava ilable RASHMI SILVER Attending Clinician Unavailable MARK GUNTER Attending Clinician Unavail able KMAI JUNIOR Attending Clinician Unavailable MV, TECH 1 Attending Clinician Unavailable LINNETTE BARNETT Attending Clinician Unavailable PRADEEP VEGA Attending Clinician Unavail able MEEK LUCERO Attending Clinician Unavailable DOLORES MALIK Attending Clinician Unavailable SANDRA LOPEZ Attending Clinician Unavailable PL, TECH 1 Attending Clinician Unavailable ILIANA ANDRADE Attending Clinician UnaCATHY Wilson Attending Clinician Unavail able MELISSA VLILALPANDO Attending Clinician Unava ilable DULCE LEE Attending Clinician Unavailable KAREN LOPEZ Attending Clinician UnavailMARITO Hernández Attending Clinician Unavailab DENIA Mccall Attending Clinician Unavailable ANTONIO ALEMAN Attending Clinician Unavailable Doctor Unassigned, [place] Attending Clinician U Dwayne Gibson Attending Clinician Payers Payer Name Policy Type Policy Number Effective Date Expirati on Date Source [facility] 94 9 [id number] 2024 00:00:00 COMMERCIAL NON-CONTRACT GENERIC [id number] 2017 00:00:00 Problems Condition Name Condition Details [...] adult Disease Active 01-19 00:00: 00 Lexy Oropeza - Externa l 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 01-19 00:00: 00 Lexy Landis Externa l No known active problems No known active problems Disease [facility] Allergies, Adverse Reactions, Alerts Allergy Name Allergy Type Status Severity Reaction(s) Onset Date Inactive Date Treating Clinician Comments Source NO KNOWN ALLERGIE S Drug Class Active General acute hospital Social History Social Habit Start Date Stop Date Quantity Comments Source Gender identity Rosa M Oropeza - External Sexual orientation [facility] Alcoholic beverage intake 2024-10-30 00:00:00 2024-10-30 00:00:00 Lifetime non-drinker (finding) Lexy Oropeza - External Alcohol intake 2023-10-14 00:00:00 2023-10-14 00:00:00 Lifetime non-drinker (finding) Lexy Oropeza - External History of Social function 2023-05-23 00:00:00 2023-05-23 00:00:00 Lexy Oropeza - External Tobacco use and exposure 2023-01-18 00:00:00 2023-01-18 00:00:00 Smokeless tobacco non-user Lexy Oropeza - External Sex 2022-09-02 15:47:37 2022-09-02 15:47:37 Male (finding) Lexy Oropeza - External Exposure to SARS-CoV-2 (event) 2021-04-17 00:00:00 2021-05-17 12:04:00 Not sure [facility] Sex assigned at 1965 00:00:00 1965 00:00:00 Lexy Oropeza - External Smoking Status Start Date Stop Date Source Never smoked tobacco Lexy Oropeza - External Tobacco smoking consumption unknown [facility] Medications Ordered Medication Name Filled Medication Name Start Date Stop Date Current Medication? Ordering Clinician Indication Dosage Frequency Signature (SIG) Comments Components Source Meloxicam (Mobic) 15 MG oral Tablet 10-30 00:00: 00 Yes 15mg QD Take 1 tablet (15 mg total) by mouth daily as needed for pain take with food, stop if stomach upset. Lexy chacon LISINOPRIL- HCTZ 20-12.5 MG oral Tablet 10-10 00:00: 00 Yes [id number] 2{tbl} QD Take 2 tablets by mouth once daily Lexy chacon Diclofenac Sodium 1 % apply externally Gel 10-10 00:00: 00 Yes [id number] 9100 1{appli cation} Q.5D Apply 1 Applicatio n topically 2 times daily as needed (pain). Lexy chacon Carvedilol 6.25 MG oral Tablet 06-01 00:00: 00 Yes [id number] 6.25mg Take 1 tablet (6.25 mg total) by mouth in the morning and 1 tablet (6.25 mg total) in the evening. Take with meals. Lexy chacon Ketoconazol e 2 % apply externally Cream 06-01 00:00: 00 Yes [id number] APPLY TO AFFECTED AREA OF THE SKIN DAILY FOR 14 DAYS. Lexy chacon Methylpredn isolone Acetate (Depo-Medro l) [40 mg/mL], 40mg TOTAL - Physician Administere d (J1030) 04-24 17:00: 31 No [id number] 40mg 40 mg, Physician Administer ed, ONCE, 1 dose, On Tue04/24/24 at 1645 Lexy chacon methylPREDN ISolone (Medrol) 4 MG oral Tablet Therapy Pack 04-24 00:00: 00 04-24 00:00 :00 No 1{aline} Take 1 aline by mouth See Admin Instructio ns Take as directed. Lexy chacon LISINOPRIL- HCTZ 20-12.5 MG oral Tablet 04-16 00:00: 00 Yes [id number] 2{tbl} QD Take 2 tablets by mouth daily. Lexy chacon Diclofenac Sodium 1 % apply externally Gel 02-14 00:00: 00 Yes [id number] 9100 1{appli cation} Q.5D Apply 1 Applicatio n topically 2 times daily as needed (pain). Lexy chacon Gabapentin 100 MG oral Capsule 02-14 00:00: 00 Yes [id number] 9100 100mg Q.5D Take 1 capsule (100 mg total) by mouth 2 times daily as needed (pain). Lexy chacon Sildenafil Citrate 100 MG oral Tablet 02-14 00:00: 00 Yes [id number] 100mg QD Take 1 tablet (100 mg total) by mouth daily as needed. Lexy chacon Semaglutide -Weight Management (Wegovy) 0.25 MG/0.5ML subcutaneou s Solution Auto-inject or 02-14 00:00: 00 Yes [id number] 104 .25mg Q1W Inject 0.25 mg into the skin once a week. Lexy chacon Methylpredn isolone Acetate (Depo-Medro l) [40 mg/mL], 40mg TOTAL - Physician Administere d (J1030) 02-13 13:45: 00 02-13 14:19 :25 No [id number] 40mg Lexy chacon prednisoLON E Acetate 1 % ophthalmic Suspension 02-13 00:00: 00 Yes [id number] 1[drp] Q.5D Place 1 drop into both eyes 2 times daily. Lexy chacon Ketoconazol e 2 % apply externally Cream 01-22 00:00: 00 Yes [id number] APPLY TO AFFECTED AREA OF THE SKIN DAILY FOR 14 DAYS. Lexy chacon Gentamicin Sulfate 0.3 % ophthalmic Solution 01-19 00:00: 00 Yes Lexy chacon Diclofenac Sodium 75 MG oral Tablet Delayed Response 01-12 00:00: 00 02-14 00:00 :00 No [id number] 75mg Q.5D Take 1 tablet (75 mg total) by mouth 2 times daily as needed (pain). Lexy chacon Erythromyci n 5 MG/GM ophthalmic Ointment 2024-0 5-05 00:00: 00 Yes APPLY 1CM TO AFFECTED EYE NIGHTLY Lexy chacon Atorvastati n Calcium 40 MG oral Tablet -18 00:00: 00 Yes [id number] 40mg Take 1 tablet (40 mg total) by mouth at bedtime. Lexy chacon Bilateral Injection: Methylpredn isolone Acetate (Depo-Medro l) 40 mg/ml, 80mg - Physician Administere d (J1030) 10-14 18:45: 00 10-14 18:38 :00 No [id number] 80mg Lexy chacon Triamcinolo ne Acetonide 0.1 % apply externally Cream 10-14 00:00: 00 Yes [id number] Apply to affected area twice daily. Lexy chacon Fluocinonid e 0.05 % apply externally Ointment 10-14 00:00: 00 Yes [id number] Apply to affected areas twice daily for three weeks.. Lexy chacon predniSONE (DELTASONE) 10 MG oral tablet 10-14 00:00: 00 02-13 00:00 :00 No [id number] 10mg Take 1 tablet (10 mg total) by mouth daily. Lexy chacon FLUTICASONE PROPIONATE, NASAL, (Flonase Allergy Relief) 50 MCG/ACT nasal Suspension 10-13 00:00: 00 Yes [id number] 50ug Q.5D Use 1 spray (50 mcg total) in each nostril 2 times daily. Lexy chacon Ketoconazol e 2 % apply externally Cream 10-12 00:00: 00 Yes [id number] Apply to skin daily for 14 days. Lexy chacon LISINOPRIL- HCTZ 20-12.5 MG oral Tablet 10-07 00:00: 00 Yes [id number] 2{tbl} Take 2 tablets by mouth daily. Lexy chacon Sildenafil Citrate 100 MG oral Tablet 10-07 00:00: 00 Yes [id number] 100mg QD Take 1 tablet (100 mg total) by mouth daily as needed. Lexy Burgoslouismian Sahni oswaldo TESTOSTERON E CYPIONATE IM 09-19 16:33: 46 09-19 00:00 :00 No Inject into the muscle Lexy Selouismian Sabiha Verndeo chacon Atorvastati n Calcium 40 MG oral Tablet 09-19 00:00: 00 Yes [id number] 20mg Take 0.5 tablets (20 mg total) by mouth at bedtime. Lexy Selouismian Sabiha chacon Carvedilol 6.25 MG oral Tablet 09-13 00:00: 00 Yes [id number] 6.25mg Take 1 tablet (6.25 mg total) by mouth in the morning and 1 tablet (6.25 mg total) in the evening. Take with meals. Lexy Selouismian Porrasdeo chacon TESTOSTERON E CYPIONATE IM 2022-09 14:01: 56 Yes Inject into the muscle Lexy chacon methylPREDN ISolone (Medrol) 4 MG oral Tablet Therapy Pack 2022-09 00:00: 00 Yes 1{aline} Take 1 aline by mouth See Admin Instructio ns Take as directed. Lexy Burgoslouismian Sahni oswaldo Sildenafil Citrate 100 MG oral Tablet 2022-09 00:00: 00 Yes [id number] 100mg QD Take 1 tablet (100 mg total) by mouth daily as needed. Lexy Landis Verndeo chacon Atorvastati n Calcium 40 MG oral Tablet 2022-09 00:00: 00 Yes [id number] 40mg Take 1 tablet (40 mg total) by mouth at bedtime. Lexy chacon Meclizine HCl 12.5 MG oral Tablet 2022-09 00:00: 00 Yes [id number] 12.5mg QD Take 1 tablet (12.5 mg total) by mouth daily as needed for dizziness (vertigo). Lexy chacon Bilateral Injection: Methylpredn isolone Acetate (Depo-Medro l) 40 mg/ml, 80mg - Physician Administere d (J1030) 2022-09 16:30: 00 06-10 16:45 :00 No [id number] 80mg Lexy chacon TESTOSTERON E CYPIONATE IM 2022-09 11:13: 17 Yes Inject into the muscle Lexy chacon Carvedilol (Coreg) 6.25 MG oral Tablet 05-26 00:00: 00 Yes [id number] 6.25mg Take 1 tablet (6.25 mg total) by mouth in the morning and 1 tablet (6.25 mg total) in the evening. Take with meals. Lexy chacon Diclofenac Sodium 1 % apply externally Gel 05-26 00:00: 00 02-14 00:00 :00 No [id number] 1{appli cation} Q.5D Apply 1 Applicatio n topically 2 times daily as needed (pain). Lexy chacon Tramadol HCl (ULTRAM) 50 MG oral Tablet 05-26 00:00: 00 09-19 00:00 :00 No [id number] 50mg Q.5D Take 1 tablet (50 mg total) by mouth 2 times daily as needed for pain. Lexy chacon predniSONE (DELTASONE) 10 MG oral tablet 05-26 00:00: 00 09-02 00:00 :00 No [id number] 10mg Take 1 tablet (10 mg total) by mouth daily. Lexy chacon Diclofenac Sodium 75 MG oral Tablet Delayed Response 05-26 00:00: 00 05-26 00:00 :00 No [id number] 75mg QD Take 1 tablet (75 mg total) by mouth daily as needed. Lexy chacon TESTOSTERON E CYPIONATE IM 05-23 17:47: 54 Yes Inject into the muscle Lexy chacon Sildenafil Citrate 100 MG oral Tablet 05-19 00:00: 00 Yes [id number] 100mg QD Take 1 tablet (100 mg total) by mouth daily as needed. Lexy chacon Ketoconazol e 2 % apply externally Cream 05-19 00:00: 00 Yes [id number] Apply to skin daily for 14 days. Lexy chacon Diclofenac Sodium 75 MG oral Tablet Delayed Response 05-19 00:00: 00 05-26 00:00 :00 No [id number] 75mg Q.5D Take 1 tablet (75 mg total) by mouth 2 times daily as needed. Lexy chacon Benzonatate 100 MG oral Capsule 05-12 00:00: 00 Yes [id number] 100mg Q.[id number] 3D Take 1 capsule (100 mg total) by mouth 3 times daily as needed for cough. Lexy chacon Azithromyci n 250 MG oral Tablet 05-12 00:00: 00 05-18 04:59 :00 No [id number] Take 2 tablets by mouth on day 1 then 1 tablet by mouth daily for 4 days thereafter .. Lexy chacon Sildenafil Citrate 50 MG oral Tablet 04-05 00:00: 00 Yes [id number] 50mg QD Take 1 tablet (50 mg total) by mouth daily as needed Lexy chacon LISINOPRIL- HCTZ 20-12.5 MG oral Tablet 04-05 00:00: 00 Yes [id number] 2{tbl} Take 2 tablets by mouth daily Lexy chacon Carvedilol (Coreg) 3.125 MG oral Tablet 04-05 00:00: 00 05-26 00:00 :00 No [id number] 3.125mg Take 1 tablet (3.125 mg total) by mouth in the morning and 1 tablet (3.125 mg total) in the evening. Take with meals. Lexy chacon TESTOSTERON E CYPIONATE IM 04-01 09:04: 24 Yes Inject into the muscle Lexy chacon Semaglutide -LENIN-Jarrod ght Management 0.25 MG/0.5ML Subcutaneou s Solution Auto-inject or 04-01 00:00: 00 Yes [id number] 104 .25mg Inject 0.25 mg into the skin once a week Lexy chacon Ketoconazol e 2 % apply externally Cream 04-01 00:00: 00 05-19 00:00 :00 No [id number] Apply to skin daily for 14 days [...] MG oral Tablet 02-02 00:00: 00 Yes [id number] 50mg QD Take 1 tablet (50 mg total) by mouth daily as needed Lexy chacon Metformin HCl 500 MG oral Tablet 02-02 00:00: 00 04-01 00:00 :00 No [id number] 500mg Take 1 tablet (500 mg total) by mouth daily (with breakfast) Lexy chacon TESTOSTERON E CYPIONATE IM 02-01 14:17: 15 Yes Inject into the muscle Lexy chacon Sildenafil Citrate 50 MG oral Tablet 02-01 14:17: 15 Yes 50mg QD Take 1 tablet (50 mg total) by mouth daily as needed Lexy chacon Erythromyci n 5 MG/GM ophthalmic Ointment 02-01 00:00: 00 Yes [id number] 1cm Apply 1 cm to eye nightly Lexy chacon Premont-3 Fatty Acids (Fish Oil) 1000 MG oral Capsule 01-21 00:00: 00 05-26 00:00 :00 No [id number] 1000mg Take 1 capsule (1,000 mg total) [...] MG oral Tablet 01-19 00:00: 00 Yes [id number] 2{tbl} Take 2 tablets by mouth daily Lexy chacon Carvedilol (Coreg) 3.125 MG oral Tablet 01-19 00:00: 00 Yes [id number] 3.125mg Take 1 tablet (3.125 mg total) [...] 00 No 1mg metformin 500 mg tablet 2022-0 6-06 00:00: 00 No 1mg Bromfed DM 2 mg-30 mg-10 mg/5 mL oral syrup 2021-0 - 00:00: 00 No 10mg/5 mL atorvastati n 20 mg tablet 0 - 00:00: 00 No 1mg metformin 500 mg tablet 0 - 00:00: 00 No 1mg Bromfed DM 2 mg-30 mg-10 mg/5 mL oral syrup 2021-0 - 00:00: 00 No 10mg/5 mL atorvastati n 20 mg tablet 0 - 00:00: 00 No 1mg metformin 500 mg tablet 0 - 00:00: 00 No 1mg Bromfed DM 2 mg-30 mg-10 mg/5 mL oral syrup 0 - 00:00: 00 No 10mg/5 mL atorvastati n 20 mg tablet 0 02-08 00:00: 00 No 1mg metformin 500 mg tablet 0 - 00:00: 00 No 1mg Bromfed DM 2 mg-30 mg-10 mg/5 mL oral syrup 0 02-08 00:00: 00 No 10mg/5 mL Viagra 50 mg tablet 0 - 00:00: 00 No 1mg Dose Unknown 0 - 00:00: 00 No Viagra 50 mg tablet 0 - 00:00: 00 No 1mg Dose Unknown 0 -06 00:00: 00 No Viagra 50 mg tablet 2021-0 - 00:00: 00 No 1mg Dose Unknown 0 -06 00:00: 00 No Viagra 50 mg tablet 0 -06 00:00: 00 No 1mg Dose Unknown 0 -06 00:00: 00 No lisinopril 20 mg-hydrochl orothiazide 25 mg tablet 2021-0 - 00:00: 00 No 2mg Dose Unknown 0 - 00:00: 00 No lisinopril 20 mg-hydrochl orothiazide 25 mg tablet 2021-0 - 00:00: 00 No 2mg Dose Unknown 0 09-15 00:00: 00 No lisinopril 20 mg-hydrochl [...] ONCE, 1 dose, 05/17/21 at 1330, Routine [facility] acute hospital ketorolac (TORADOL) injection 30 mg 05-17 18:30: 00 05-17 17:31 :00 No 30mg 30 mg, Intramuscu lar, ONCE, 1 dose, 05/17/21 at 1330, CONNIE
Fa culty member approving Restricted medication : DWAYNE [place] General acute hospital cyclobenzap rine 10 mg tablet 05-17 00:00: 00 Yes [id number] 10mg Take 1 tablet by mouth 3 (three) times daily as needed for Muscle Spasms. [facility] ibuprofen 800 mg tablet 05-17 00:00: 00 Yes [id number] 800mg Take 1 tablet by mouth every 6 (six) hours as needed for Pain (scale 4-6). [facility] acute hospital lisinopril 20 mg-hydrochl orothiazide 25 mg tablet 02-10 00:00: 00 No 2mg Viagra 50 mg tablet 02-10 00:00: 00 No 1mg Dose Unknown 02-10 00:00: 00 No lisinopril 20 mg-hydrochl orothiazide 25 mg tablet 02-10 00:00: 00 No 2mg Viagra 50 mg tablet 02-10 00:00: 00 No 1mg Dose Unknown 02-10 00:00: 00 No lisinopril 20 mg-hydrochl orothiazide 25 mg tablet 2021-0 6-08 00:00: 00 No 2mg Viagra 50 mg tablet 1-0 6-08 00:00: 00 No 1mg Dose Unknown 1-0 6-08 00:00: 00 No lisinopril 20 mg-hydrochl orothiazide 25 mg tablet 1-0 6-08 00:00: 00 No 2mg Viagra 50 mg tablet 1-0 6-08 00:00: 00 No 1mg Dose Unknown 1-0 6- 00:00: 00 No Dose Unknown 2020-0 4-07 00:00: 00 No Dose Unknown 1-0 4-07 00:00: 00 No Dose Unknown 1-0 4-07 00:00: 00 No Dose Unknown 1-0 4-07 00:00: 00 No Dose Unknown 1-0 4-07 00:00: 00 No Dose Unknown 1-0 4-07 00:00: 00 No Dose Unknown 1-0 4-07 00:00: 00 No Dose Unknown 1-0 4-07 00:00: 00 No Dose Unknown 1-0 1-06 [...] Dose Unknown 2021-0 1-06 00:00: 00 No Dose Unknown 2021-0 1-06 00:00: 00 No gemfibrozil 600 mg tablet 2021-0 1-06 00:00: 00 No 1mg Dose Unknown 2021-0 1-06 00:00: 00 No Dose Unknown 2021-0 1-06 00:00: 00 No Dose Unknown 2021-0 1-06 00:00: 00 No gemfibrozil 600 mg tablet 2021-0 1-06 00:00: 00 No 1mg Dose Unknown 2021-0 1-06 00:00: 00 No Dose Unknown 2021-0 1-06 00:00: 00 No Dose Unknown 2019-09 0- 00:00: 00 No Dose Unknown 2019-09 0- 00:00: 00 No Dose Unknown 2019-09 0- 00:00: 00 No Dose Unknown 2019-09 0- 00:00: 00 No Dose Unknown 2019-09 0- 00:00: 00 No Dose Unknown 2019-09 0- 00:00: 00 No Dose Unknown 2019-09 0- 00:00: 00 No Dose Unknown 2019-09 0 00:00: 00 No Dose Unknown 2019-09 0- 00:00: 00 No Dose Unknown 2019-09 0- 00:00: 00 No Dose Unknown 2019-09 0 00:00: 00 No Dose Unknown 2019-09 0 00:00: 00 No lisinopril 20 mg-hydrochl orothiazide 12.5 mg tablet 0 616 00:00: 00 No 2mg ibuprofen 800 mg tablet 0 6-16 00:00: 00 No 1mg Dose Unknown 616 00:00: 00 No lisinopril 20 mg-hydrochl orothiazide 12.5 mg tablet 0 616 00:00: 00 No 2mg ibuprofen 800 mg tablet 0 616 00:00: 00 No 1mg Dose Unknown 6-16 00:00: 00 No lisinopril 20 mg-hydrochl orothiazide 12.5 mg tablet 0 616 00:00: 00 No 2mg ibuprofen 800 mg tablet 0 616 00:00: 00 No 1mg Dose Unknown 0 616 00:00: 00 No lisinopril 20 mg-hydrochl orothiazide [...] 2mg nitroglycer in 0.4 mg sublingual tablet 10 00:00: 00 No 1mg lovastatin 40 mg tablet 0 2 00:00: 00 No 1mg lisinopril 20 mg-hydrochl orothiazide 12.5 mg tablet 10-15 00:00: 00 No 2mg nitroglycer in 0.4 mg sublingual tablet 10-15 00:00: 00 No 1mg lovastatin 40 mg [...] lisinopril 20 mg-hydrochl orothiazide 12.5 mg tablet 12-19 00:00: 00 No 2mg lisinopril 20 mg-hydrochl orothiazide 12.5 mg tablet 16 00:00: 00 No 2mg lisinopril 20 mg-hydrochl orothiazide 12.5 mg tablet 16 00:00: 00 No 2mg lisinopril 20 mg-hydrochl orothiazide 12.5 mg tablet 16 00:00: 00 No 2mg lovastatin 20 mg tablet 14 00:00: 00 No 1mg lovastatin 20 mg tablet 14 00:00: 00 No 1mg lovastatin 20 mg tablet 214 00:00: 00 No 1mg lovastatin 20 mg tablet 14 00:00: 00 No 1mg ondansetron 4 mg disintegrat ing tablet 09 00:00: 00 Yes 4mg Take 1 tablet by mouth every 8 (eight) hours as needed for Nausea and Vomiting (N/V). [facility] acute hospital benzonatate (TESSALON PERLES) 100 mg capsule -09 00:00: 00 Yes 100mg Take 1 capsule by mouth every 8 (eight) hours as needed for Cough. [facility] acute hospital lisinopril 20 mg-hydrochl orothiazide 12.5 mg tablet [...] lisinopril 10 mg-hydrochl orothiazide 12.5 mg tablet 2015-0 3-12 00:00: 00 No 1mg lisinopril 10 mg-hydrochl [...] up Unknown Completed Lexy Seybold - External Vital Signs Vital Name Observation Time Observation Value Comments S ource Systolic blood pressure 2024-10-30 15:34:00 170 mm[Hg] Lexy Burgosybo ld - External Diastolic blood pressure 2024-10-30 15:34:00 100 mm[Hg] Lexy Burgosybo ld - External Heart rate 2024-10-30 15:34:00 64 /min Jongse estrella Seybold - External Respiratory rate 2024-10-30 15:34:00 18 /min Lexy Seybold - External Body height 2024-10-30 15:34:00 170.2 cm Rosa M ey Seybold - External Body weight 2024-10-30 15:34:00 129.927 kg Rosa M ey Seybold - External BMI 2024-10-30 15:34:00 44.86 kg/m2 Rosa M ey Seybold - External Systolic blood pressure 2024-04-24 20:59:00 155 mm[Hg] [...] blood pressure 2024-02-14 13:08:00 93 mm[Hg] Lexy Burgosybo ld - External Heart rate 2024-02-14 13:08:00 [...] blood pressure 2023-01-19 20:10:00 95 mm[Hg] Lexy Garciao ld - External Heart rate 2023-01-19 20:10:00 82 /min Renetta estrella Seybmian - External Body temperature 2023-01-19 20:10:00 36.5 Mulu Lexy Burgosybold - External Respiratory rate 2023-01-19 20:10:00 19 /min Lexy Oropeza - External Body height 2023-01-19 20:10:00 170.2 cm Rosa M edwards Seybmain - External Body weight 2023-01-19 20:10:00 127.914 kg Rosa M edwards Seybold - External BMI 2023-01-19 20:10:00 44.17 kg/m2 Rosa M edwards Seybold - External Systolic blood pressure 2021-05-17 17:07:58 138 mm[Hg] [facility] Diastolic blood pressure 2021-05-17 17:07:58 94 mm[Hg] [facility] Heart rate 2021-05-17 17:07:58 75 /min [facility] Body temperature 2021-05-17 17:07:58 36.94 Mulu [facility] Respiratory rate 2021-05-17 17:07:58 17 /min [facility] Body height 2021-05-17 17:05:00 170.2 cm [facility] Body weight 2021-05-17 17:05:00 117.935 kg [facility] BMI 2021-05-17 17:05:00 40.72 kg/m2 [facility] Oxygen saturation in Arterial blood by Pulse oximetry 2021-05-17 17:05:00 96 /min [facility] BP Systolic 2022-07-06 13:15:00 162 mm[Hg] [...] SPINE 3 VW 2021-05-17 17:50:14 Russ Cleveland [facility] URINALYSIS 2021-05-17 17:37:00 Dwayne Cleveland Lasha [facility] CONSENT/REFUSAL FOR DIAGNOSIS AND TREATMENT 2021-05-17 16:46:48 Doctor Unassigned, [place] [facility] Ekg 2018-08-16 00:00:00 22523 Ecg Routine Ecg W/least 12 Lds W/i r 2017-10-11 00:00:00 Plan of Care Planned Activity Planned Date Details Comments Source Goal Plan of Care Note [code = 19552-6] Goal Plan of Care Note [code = 37328-1] Goal Plan of Care Note [code = 40522-0] Goal Plan of Care Note [code = 49510-0] Goal Plan of Care Note [code = 68070-1] Goal Plan of Care Note [code = 61647-7] Goal Plan of Care Note [code = 68412-5] Goal Plan of Care Note [code = 35317-4] Goal Plan of Care Note [code = 57785-3] Goal Plan of Care Note [code = 70705-6] Goal Plan of Care Note [code = 19790-0] Goal Plan of Care Note [code = 71343-8] Goal Plan of Care Note [code = 99027-3] Goal Plan of Care Note [code = 19493-7] Goal Plan of Care Note [code = 93484-9] Goal Plan of Care Note [code = 82607-7] Goal Plan of Care Note [code = 73689-7] Goal Plan of Care Note [code = 08647-2] Goal Plan of Care Note [code = 93251-3] Goal Plan of Care Note [code = 14855-7] Goal Plan of Care Note [code = 64080-7] Goal Plan of Care Note [code = 68655-2] Goal Plan of Care Note [code = 74994-0] Goal Plan of Care Note [code = 88805-9] Goal Plan of Care Note [code = 90814-9] Goal Plan of Care Note [code = 36035-3] Goal Plan of Care Note [code = 93175-8] Goal Plan of Care Note [code = 84558-6] Goal Plan of Care Note [code = 56366-4] Goal Plan of Care Note [code = 06545-9] Goal Plan of Care Note [code = 07667-9] Goal Plan of Care Note [code = 59417-2] Goal Plan of Care Note [code = 42085-8] Goal Plan of Care Note [code = 23502-4] Goal Plan of Care Note [code = 24143-9] Goal Plan of Care Note [code = 73327-1] Goal Plan of Care Note [code = 98835-8] Goal Plan of Care Note [code = 01758-0] Goal Plan of Care Note [code = 98064-3] Goal Plan of Care Note [code = 59668-2] Goal Plan of Care Note [code = 89670-8] Goal Plan of Care Note [code = 48331-0] Goal Plan of Care Note [code = 66729-2] Goal Plan of Care Note [code = 28145-9] Goal Plan of Care Note [code = 36948-6] Goal Plan of Care Note [code = 84624-5] Goal Plan of Care Note [code = 13316-9] Goal Plan of Care Note [code = 50638-1] Goal Plan of Care Note [code = 17725-1] Goal Plan of Care Note [code = 90394-1] Goal Plan of Care Note [code = 56009-8] Goal Plan of Care Note [code = 94400-8] Goal Plan of Care Note [code = 43171-9] Goal Plan of Care Note [code = 40785-0] Goal Plan of Care Note [code = 20458-3] Goal Plan of Care Note [code = 36350-2] Goal Plan of Care Note [code = 58004-2] Goal Plan of Care Note [code = 71167-8] Goal Plan of Care Note [code = 03320-6] Goal Plan of Care Note [code = 00666-6] Goal Plan of Care Note [code = 67279-2] Goal Plan of Care Note [code = 56398-6] Goal Plan of Care Note [code = 63323-0] Goal Plan of Care Note [code = 17756-9] Goal Plan of Care Note [code = 97662-4] Goal Plan of Care Note [code = 13928-8] Goal Plan of Care Note [code = 89101-5] Goal Plan of Care Note [code = 66840-3] Goal Plan of Care Note [code = 76460-0] Goal Plan of Care Note [code = 84711-6] Goal Plan of Care Note [code = 73895-0] Goal Plan of Care Note [code = 62002-0] Goal Plan of Care Note [code = 25798-6] Goal Plan of Care Note [code = 39890-1] Goal Plan of Care Note [code = 27537-1] Goal Plan of Care Note [code = 23963-3] Goal Plan of Care Note [code = 08414-0] Goal Plan of Care Note [code = 23186-0] Goal Plan of Care Note [code = 35442-0] Goal Plan of Care Note [code = 13877-4] Goal Plan of Care Note [code = 70923-9] Goal Plan of Care Note [code = 08943-1] Goal Plan of Care Note [code = 21158-4] Goal Plan of Care Note [code = 17897-4] Goal Plan of Care Note [code = 92776-1] Goal Plan of Care Note [code = 22854-4] Goal Plan of Care Note [code = 10915-9] Goal Plan of Care Note [code = 34578-4] Goal Plan of Care Note [code = 03793-9] Goal Plan of Care Note [code = 91146-3] Goal Plan of Care Note [code = 80547-3] Goal Plan of Care Note [code = 73593-2] Goal Plan of Care Note [code = 22611-1] Encounters Start Date/Time End Date/Time Encounter Type Admission Type Attending [facility] Facility Care Department Encounter ID Source 2024-11-16 15:30:00 2024-11-16 15:30:00 Outpatient [facility] [id number] [facility]24-11-09 11:00:00 2024-11-09 11:00:00 Outpatient ARMAND LEONE [id number] Lexy [facility] 2024-10-30 09:20:00 2024-10-30 09:20:00 Outpatient TRACY SIDHU [id number] Lexy [facility] 2024-10-30 00:00:00 2024-10-30 00:00:00 Outpatient [facility] SIDHU [id number] [facility]30 00:00:00 2024-10-30 00:00:00 Outpatient NAHUMTRACY LEXY [id number] [facility] 2024-10-30 00:00:00 2024-10-30 00:00:00 Outpatient PREZADIANN Bae LEXY [id number] [facility] 2024-10-07 00:00:00 2024-10-07 00:00:00 Outpatient PREZAS, DIANN STAHL LEXY [id number] [facility] 2024-10-05 00:00:00 2024-10-05 00:00:00 Outpatient PREZAS, DIANN LEXY STAHL [id number] [facility] 2024-08-24 00:00:00 2024-08-24 00:00:00 Outpatient PREZAS, DIANN LEXY STAHL [id number] [facility] 2024-06-20 00:00:00 2024-06-20 00:00:00 Outpatient PREZAS, DIANN LEXY STAHL [id number] [facility] 2024-06-07 00:00:00 2024-06-07 00:00:00 Outpatient PREZAS, DIANN LEXY STAHL [id number] [facility] 2024-06-06 00:00:00 2024-06-06 00:00:00 Outpatient PREZAS, DIANN LEXY STAHL [id number] [facility] 2024-06-06 00:00:00 2024-06-06 00:00:00 Outpatient PREZAS, DIANN LEXY STAHL [id number] Lexy [facility] 2024-06-01 00:00:00 2024-06-01 00:00:00 Outpatient PREZAS, DIANN LEXY STAHL [id number] Lexy Seybold 2024-06-01 00:00:00 2024-06-01 00:00:00 Outpatient PREZAS, DIANN LEXY STAHL [id number] Lexy Seybold 2024-05-01 00:00:00 2024-05-01 00:00:00 Outpatient LEXY STAHL [id number] Lexy Seybold 2024-04-26 00:00:00 2024-04-26 00:00:00 Outpatient LEXY STAHL [id number] Lexy Seybold 2024-04-24 16:00:00 2024-04-24 16:00:00 Outpatient TRACY SIDHU LEXY STAHL [id number] Lexy Seybold 2024-04-12 00:00:00 2024-04-12 00:00:00 Outpatient PREZADIANN Bae LEXY STAHL [id number] Lexy Seybold 2024-04-12 00:00:00 2024-04-12 00:00:00 Outpatient PREZAKathia DIANN LEXY STAHL [id number] Lexy Seybold 2024-03-30 16:15:00 2024-03-30 16:15:00 Outpatient PREZADIANN Bae LEXY STAHL [id number] Lexy Seybold 2024-03-09 14:30:00 2024-03-09 14:30:00 Outpatient АНДРЕЙ WHITLOCK [id number] Lexy Seybold 2024-02-23 00:00:00 2024-02-23 00:00:00 Outpatient LEXY STAHL [id number] Lexy Seybold 2024-02-23 00:00:00 2024-02-23 00:00:00 Outpatient PREZADIANN Bae LEXY STAHL [id number] Lexy Seybold 2024-02-22 00:00:00 2024-02-22 00:00:00 Outpatient MD LEXY SILVEIRA [id number] Lexy Seybold 2024-02-21 00:00:00 2024-02-21 00:00:00 Outpatient PREZADIANN Bae LEXY STAHL [id number] Lexy Seybold 2024-02-21 00:00:00 2024-02-21 00:00:00 Outpatient LEXY STAHL [id number] Lexy Seybold 2024-02-16 00:00:00 2024-02-16 00:00:00 Outpatient LEXY STAHL [id number] Lexy Seybold 2024-02-16 00:00:00 2024-02-16 00:00:00 Outpatient PREZAKathia DIANN HERNANDEZSEY [id number] Lexy [facility] 2024-02-16 00:00:00 2024-02-16 00:00:00 Outpatient NAHUMTRACY FULTON LEXY LEXY [id number] Lexy [facility] 2024-02-15 16:55:00 2024-02-15 16:55:00 Outpatient LAB90 LEXY STAHL [id number] Lexy Seybold 2024-02-15 16:30:00 2024-02-15 16:30:00 Outpatient PREZAS, DIANN LEXY LEXY [id number] Lexy Seybold 2024-02-15 00:00:00 2024-02-15 00:00:00 Outpatient LEXY STAHL [id number] Lexy Seybold 2024-02-14 13:40:00 2024-02-14 13:40:00 Outpatient NIVIARASHMI LEXY STAHL [id number] Lexy Seybold 2024-02-14 08:20:00 2024-02-14 08:20:00 Outpatient NAHUMTRACY FULTON LEXY STAHL [id number] Lexy Seybold 2024-02-03 14:30:00 2024-02-03 14:30:00 Outpatient CHINYERE АНДРЕЙSALAS [id number] Lexy Seybold 2024-01-23 00:00:00 2024-01-23 00:00:00 Outpatient PREZAS, DIANN LEXY STAHL [id number] Lexy Seybold 2024-01-13 00:00:00 2024-01-13 00:00:00 Outpatient PREZAS, DIANN LEXY STAHL [id number] Lexy Seybold 2024-01-12 00:00:00 2024-01-12 00:00:00 Outpatient PREZAS, DIANN LEXY STAHL [id number] Lexy Seybold 2023-12-15 14:45:00 2023-12-15 14:45:00 Outpatient BRIONNA CEBALLOS [id number] Lexy Seybold 2023-12-08 00:00:00 2023-12-08 00:00:00 Outpatient LEXY STAHL [id number] Lexy Seybold 2023-12-08 00:00:00 2023-12-08 00:00:00 Outpatient PREZADIANN Bae LEXY STAHL [id number] Lexy Seybold 2023-12-08 00:00:00 2023-12-08 00:00:00 Outpatient PREZADIANN Bae LEXY STAHL [id number] Lexy Seybold 2023-11-24 00:00:00 2023-11-24 00:00:00 Outpatient PREZASDIANN LEXY STAHL [id number] Lexy Seybold 2023-11-19 00:00:00 2023-11-19 00:00:00 Outpatient PREZAS DIANN STAHL [id number] Lexy Seybold 2023-11-17 13:45:00 2023-11-17 13:45:00 Outpatient RASHMI SILVER [id number] Lexy Seybold 2023-11-02 00:00:00 2023-11-02 00:00:00 Outpatient MD LEXY SILVEIRA [id number] Lexy Seybold 2023-11-02 00:00:00 2023-11-02 00:00:00 Outpatient TRACY SIDHU [id number] Lexy Seybold 2023-10-28 00:00:00 2023-10-28 00:00:00 Outpatient PREZAKathia DIANN STAHL [id number] Lexy Seybold 2023-10-25 08:30:00 2023-10-25 08:30:00 Outpatient TRACY SIDHU [id number] Lexy Seybold 2023-10-20 00:00:00 2023-10-20 00:00:00 Outpatient MARK GUNTER [id number] Lexy Seybold 2023-10-18 16:15:00 2023-10-18 16:15:00 Outpatient PRELEROY DIANN STAHL [id number] Lexy Seybold 2023-10-14 15:00:00 2023-10-14 15:00:00 Outpatient BRIONNA CEBALLOS [id number] Lexy Seybold 2023-10-14 13:30:00 2023-10-14 13:30:00 Outpatient KAMI JUNIOR LEXY STAHL [id number] Lexy Oropeza 2023-10-14 11:20:00 2023-10-14 11:20:00 Outpatient NAHUMMARIBELCHI STAHL [id number] Lexy Josemian 2023-10-14 00:00:00 2023-10-14 00:00:00 Outpatient MD LEXY SILVEIRA [id number] Lexy Sandip 2023-10-13 13:00:00 2023-10-13 13:00:00 Outpatient MANPREET RAINEY [id number] Lexy lidya 2023-10-13 08:30:00 2023-10-13 08:30:00 Outpatient MARK GUNTER [id number] Lexy Sandip 2023-10-13 00:00:00 2023-10-13 00:00:00 Outpatient MARK GUNTER [id number] Lexy Oropeza 2023-10-13 00:00:00 2023-10-13 00:00:00 Outpatient MD LEXY SILVEIRA [id number] Lexy Burgos[facility] 2023-10-13 00:00:00 2023-10-13 00:00:00 Outpatient TRACY SIDHU [id number] Lexy Sandip 2023-10-11 10:30:00 2023-10-11 10:30:00 Outpatient NAHUMTRACY FULTON [id number] Lexy [facility] 2023-10-11 00:00:00 2023-10-11 00:00:00 Outpatient DIANN SADLER [id number] Lexy [facility] 2023-10-05 00:00:00 2023-10-05 00:00:00 Outpatient DIANN SADLER [id number] Lexy [facility] 2023-09-30 15:00:00 2023-09-30 15:00:00 Outpatient LINNETTE BARNETT [id number] [facility] 2023-09-30 13:00:00 2023-09-30 13:00:00 Outpatient TRACY SIDHU LEXY [id number] [facility]y [facility] 2023-09-19 16:45:00 2023-09-19 16:45:00 Outpatient PREZASDIANN LEXY [id number] [facility] 2023-09-19 16:45:00 2023-09-19 16:45:00 Outpatient LAB90 LEXY LEXY [id number] Lexy [facility] 2023-09-16 00:00:00 2023-09-16 00:00:00 Outpatient MD LEXY SILVEIRA [id number] [facility]-15 00:00:00 2023-09-15 00:00:00 Outpatient PREZAS, DIANN LEXY STAHL [id number] [facility] 2023-09-14 00:00:00 2023-09-14 00:00:00 Outpatient PREZAS, DIANN STAHL LEXY [id number] Lexy [facility] 2023-09-13 10:30:00 2023-09-13 10:30:00 Outpatient PREZAS, DIANN STAHL LEXY [id number] [facility] 2023-09-12 16:25:00 2023-09-12 16:25:00 Outpatient LABDalia STAHL LEXY [id number] [facility] 2023-09-12 00:00:00 2023-09-12 00:00:00 Outpatient TRACY SIDHU LEXY [id number] [facility] 2023-09-12 00:00:00 2023-09-12 00:00:00 Outpatient PREZAS, DIANN HERNANDEZNELLA STAHL [id number] [facility] 2023-09-12 00:00:00 2023-09-12 00:00:00 Outpatient PREZAS, DIANN HERNANDEZNELLA STAHL [id number] [facility] 2023-09-10 13:05:19 2023-09-10 13:05:19 Outpatient SFA DIDIER [id number] [facility] 2023-09-03 13:46:36 2023-09-03 13:46:36 Outpatient SFA SFA [id number] [facility] Aleg[facility] 2023-09-02 15:00:00 2023-09-02 15:00:00 Outpatient NAHUMTRACY LEXY STAHL [id number] Lexy [facility] 2023-09-02 14:40:00 2023-09-02 14:40:00 Outpatient LEXY STAHL [id number] Lexy [facility] 2023-09-01 16:00:00 2023-09-01 16:00:00 Outpatient JUDY ARMAND STAHL [id number] [facility] 2023-08-30 08:00:00 2023-08-30 08:00:00 Outpatient NAHUMMARIBELCHI STAHL [id number] [facility] 2023-08-27 12:47:20 2023-08-27 12:47:20 Outpatient SFA SFA [id number] [facility] Aleg[facility] 2023-08-22 17:24:25 2023-08-22 17:24:25 Outpatient SFA SFA [id number] [facility] 2023-08-20 00:00:00 2023-08-20 00:00:00 Outpatient DIANN SADLER [id number] [facility] 2023-08-13 11:33:10 2023-08-13 11:33:10 Outpatient SFA SFA [id number] [facility] 2023-08-09 14:40:13 2023-08-09 14:40:13 Outpatient SFA SFA [id number] [facility] 2023-07-30 11:45:59 2023-07-30 11:45:59 Outpatient SFA SFA [id number] [facility] 2023-07-29 00:00:00 2023-07-29 00:00:00 Outpatient DIANN SADLER [id number] [facility] 2023-07-29 00:00:00 2023-07-29 00:00:00 Outpatient DIANN SADLER [id number] Lex[facility] 2023-07-16 12:30:40 2023-07-16 12:30:40 Outpatient SFA SFA [id number] [facility] 2023-07-13 00:00:00 2023-07-13 00:00:00 Outpatient PRADEEP VEGA LEXY STAHL [id number] Lexy [facility] 2023-06-30 00:00:00 2023-06-30 00:00:00 Outpatient DIANN SADLER LEXY STAHL [id number] Lexy [facility] 2023-06-28 08:15:00 2023-06-28 08:15:00 Outpatient PREZADIANN Bae LEXY STAHL [id number] Lex[facility] 2023-06-23 11:15:00 2023-06-23 11:15:00 Outpatient PREZAKathia DIANN STAHL [id number] [facility] 2023-06-16 15:30:00 2023-06-16 15:30:00 Outpatient VIKTORIYA DIANN LEXY STAHL [id number] [facility] 2023-06-10 10:35:00 2023-06-10 10:35:00 Outpatient LEXY STAHL [id number] [facility] 2023-06-10 10:30:00 2023-06-10 10:30:00 Outpatient LEXY STAHL [id number] Lexy [facility] 2023-06-10 10:25:00 2023-06-10 10:25:00 Outpatient LEXY STAHL [id number] Lexy [facility] 2023-06-10 10:10:00 2023-06-10 10:10:00 Outpatient TRACY SIDHU [id number] Lex[facility] 2023-06-09 09:30:00 2023-06-09 09:30:00 Outpatient TRACY SIDHU [id number] [facility] 2023-06-08 14:04:14 2023-06-08 14:04:14 Outpatient SFA SFA [id number] [facility] 2023-06-08 00:00:00 2023-06-08 00:00:00 Outpatient TRACY SIDHU [id number] [facility] 2023-06-01 11:53:01 2023-06-01 11:53:01 Outpatient SFA [facility] [id number] [facility] 2023-05-31 00:00:00 2023-05-31 00:00:00 Outpatient PREZAS, DIANN LEXY STAHL [id number] [facility] 2023-05-31 00:00:00 2023-05-31 00:00:00 Outpatient PREZAS, DIANN LEXY STAHL [id number] [facility] 2023-05-30 13:42:48 2023-05-30 13:42:48 Outpatient SFA [facility] 25 [facility] Aleg[facility] 2023-05-27 00:00:00 2023-05-27 00:00:00 Outpatient PREZAS, DIANN LEXY STAHL [id number] [facility] 2023-05-26 10:15:00 2023-05-26 10:15:00 Outpatient LAB90 LEXY STAHL [id number] [facility] 2023-05-26 10:00:00 2023-05-26 10:00:00 Outpatient PREZAS, DIANN LEXY STAHL [id number] [facility] 2023-05-26 09:40:00 2023-05-26 09:40:00 Outpatient LAB90 LEXY STAHL [id number] [facility] 2023-05-25 00:00:00 2023-05-25 00:00:00 Outpatient PREZAS, DIANN LEXY STAHL [id number] [facility] 2023-05-24 00:00:00 2023-05-24 00:00:00 Outpatient PREZAS, DIANNROGERIO STAHL [id number] [facility] 2023-05-23 00:00:00 2023-05-23 00:00:00 Outpatient LUCERO MEEK STAHL [id number] Lexy Seybold 2023-05-19 15:30:00 2023-05-19 15:30:00 Outpatient PREZAS, DIANN LEXY STAHL [id number] [facility]-12 11:45:00 2023-05-12 11:45:00 Outpatient DOLORES MALIK LEXY STAHL [id number] [facility] 2023-05-12 00:00:00 2023-05-12 00:00:00 Outpatient PRADEEP VEGA LEXY STAHL [id number] [facility] 2023-05-12 00:00:00 2023-05-12 00:00:00 Outpatient PRADEEP VEGA LEXY STAHL [id number] [facility] 2023-05-11 00:00:00 2023-05-11 00:00:00 Outpatient RMLEROYDIANN LEXY STAHL [id number] Lex[facility] 2023-05-11 00:00:00 2023-05-11 00:00:00 Outpatient MD LEXY SILVEIRA [id number] [facility] 2023-05-06 15:28:00 2023-05-06 15:28:00 Outpatient SFA [facility] [id number] Philip Colby Codey 2023-05-05 09:15:00 2023-05-05 09:15:00 Outpatient DIANN SADLER LEXY SATHL [id number] [facility] 2023-04-26 11:09:46 2023-04-26 11:09:46 Outpatient SFA [facility] [id number] Philip Colby Codey 2023-04-20 14:13:32 2023-04-20 14:13:32 Outpatient SFA [facility] 16 Philip Colby Codey 2023-04-20 00:00:00 2023-04-20 00:00:00 Outpatient DIANN SADLER LEXY STAHL [id number] [facility] 2023-04-18 00:00:00 2023-04-18 00:00:00 Outpatient MD LEXY SILVEIRA [id number] [facility] 2023-04-18 00:00:00 2023-04-18 00:00:00 Outpatient VEGA, PRADEEP LEXY STAHL [id number] [facility] 2023-04-14 09:00:00 2023-04-14 09:00:00 Outpatient PRADEEP VEGA LEXY STAHL [id number] [facility] 2023-04-11 10:28:19 2023-04-11 10:28:19 Outpatient SFA SFA [id number] [facility] 2023-04-06 09:00:00 2023-04-06 09:00:00 Outpatient SANDRA LOPEZ LEXY STAHL [id number] [facility] 2023-04-05 00:00:00 2023-04-05 00:00:00 Outpatient PREZADIANN Bae LEXY STAHL [id number] [facility] 2023-04-03 00:00:00 2023-04-03 00:00:00 Outpatient PREZADIANN Bae LEXY STAHL [id number] [facility] 2023-04-01 09:00:00 2023-04-01 09:00:00 Outpatient PREZASDIANN LEXY STAHL [id number] [facility] 2023-04-01 00:00:00 2023-04-01 00:00:00 Outpatient PREZASDIANN LEXY STAHL [id number] [facility] 2023-03-31 11:51:33 2023-03-31 11:51:33 Outpatient SFA SFA [id number] [facility] 2023-03-24 10:30:00 2023-03-24 10:30:[address], TECH LEXY STAHL [id number] [facility] 16:30:00 2023-03-23 16:30:[address] [id number] [facility] 00:00:00 2023-03-23 00:00:00 Outpatient MD LEXY SILVEIRA [id number] [facility] 2023-03-23 00:00:00 2023-03-23 00:00:00 Outpatient PREZASDIANN LEXY STAHL [id number] [facility] 2023-03-18 16:14:23 2023-03-18 16:14:23 Outpatient SFA SFA [id number] [facility] 2023-03-18 10:20:00 2023-03-18 10:20:00 Outpatient LEXY STAHL [id number] [facility] 2023-[facility]-18 10:15:00 2023-03-18 10:15:00 Outpatient LEXY STAHL [id number] [facility] 2023-03-18 10:10:00 2023-03-18 10:10:00 Outpatient LEXY STAHL [id number] [facility] 2023-03-18 10:05:00 2023-03-18 10:05:00 Outpatient LEXY STAHL [id number] [facility] 2023-03-18 10:00:00 2023-03-18 10:00:00 Outpatient LEXY STAHL [id number] [facility] 2023-03-18 00:00:00 2023-03-18 00:00:00 Outpatient DIANN SADLER [id number] [facility] 2023-03-17 16:30:00 2023-03-17 16:30:[address], TECH [facility]EXY STAHL [id number] [facility]-11 08:15:00 2023-03-11 08:15:00 Outpatient ILIANA GREEN [id number] [facility] 2023-03-10 15:21:41 2023-03-10 15:21:41 Outpatient SFA [facility] [id number] [facility] Alegre 2023-03-10 00:00:00 2023-03-10 00:00:00 Outpatient LEXY STAHL [id number] [facility] 2023-03-03 10:00:00 2023-03-03 10:00:00 Outpatient [facility]ATH[facility] MONTOYA [id number] [facility]23-03-02 10:45:00 2023-03-02 10:45:00 Outpatient MELISSA VILLALPANDO [id number] [facility]23-03-02 00:00:00 2023-03-02 00:00:00 Outpatient PRADEEP VEGASEY [id number] [facility] 2023-03-02 00:00:00 2023-03-02 00:00:00 Outpatient LEXY STAHL [id number] Lexy mian 2023-03-02 00:00:00 2023-03-02 00:00:00 Outpatient MD LEXY SILVEIRA [id number] Lexy lidya 2023-03-01 13:28:37 2023-03-01 13:28:37 Outpatient SFA [facility] [id number] [facility]leg[facility] 2023-03-01 00:00:00 2023-03-01 00:00:00 Outpatient MD LEXY SILVEIRA [id number] [facility] 2023-02-28 00:00:00 2023-02-28 00:00:00 Outpatient LEXY STAHL [id number] [facility] 2023-02-24 10:00:00 2023-02-24 10:00:00 Outpatient DULCE LEE [id number] [facility] 2023-02-24 00:00:00 2023-02-24 00:00:00 Outpatient LEXY STAHL [id number] [facility] 2023-02-22 15:21:24 2023-02-22 15:21:24 Outpatient SFA SFA [id number] [facility] 2023-02-15 09:30:00 2023-02-15 09:30:00 Outpatient KAREN LOPEZ [id number] [facility] 2023-02-03 15:20:00 2023-02-03 15:20:00 Outpatient MARITO GARSIA [id number] [facility]y lidya 2023-02-02 11:45:00 2023-02-02 11:45:00 Outpatient DIANN SADLER [id number] [facility] 2023-[facility]-02 00:00:00 2023-02-02 00:00:00 Outpatient MD LEXY SILVEIRA [id number] [facility] 2023-02-02 00:00:00 2023-02-02 00:00:00 Outpatient PREZASDIANN [id number] [facility]y [facility] 2023-02-02 00:00:00 2023-02-02 00:00:00 Outpatient PREZADIANN Bae [id number] [facility] 2023-02-01 14:40:00 2023-02-01 14:40:00 Outpatient DENIA DIAZ [id number] [facility]-01-22 10:22:15 2023-01-22 10:22:15 Outpatient SFA SFA [id number] [facility] 2023-01-21 00:00:00 2023-01-21 00:00:00 Outpatient PREZADIANN Bae [id number] [facility] 20[facility]-21 00:00:00 2023-01-21 00:00:00 Outpatient PREZASDIANN [id number] [facility] 2023-01-20 00:00:00 2023-01-20 00:00:00 Outpatient PREZASDIANN [id number] [facility] 2023-01-19 15:55:00 2023-01-19 15:55:00 Outpatient TJ STAHL [id number] [facility] 2023-01-19 15:00:00 2023-01-19 15:00:00 Outpatient PREZASDIANN LEXY [id number] [facility] 2022-12-30 11:51:08 2022-12-30 11:51:08 Outpatient SFA SFA [id number] Philip Colby Codey 2022-12-21 11:35:05 2022-12-21 11:35:05 Outpatient SFA SFA [id number] Philip F Codey 2022-11-29 10:35:36 2022-11-29 10:35:36 Outpatient SFA SFA [id number] Philip Lasha Codey 2022-11-17 16:24:03 2022-11-17 16:24:03 Outpatient SFA SFA [id number] [facility] 2022-11-03 13:33:54 2022-11-03 13:33:54 Outpatient SFA SFA [id number] [facility] 2022-11-01 11:06:48 2022-11-01 11:06:48 Outpatient SFA SFA [id number] [facility] 2022-10-20 09:10:03 2022-10-20 09:10:03 Outpatient SFA [facility] [id number] [place] 2022-10-19 16:00:00 2022-10-19 16:00:00 Outpatient ASHAANTONIO Chacon LEXY STAHL [id number] [facility] 2022-10-15 08:30:00 2022-10-15 08:30:00 Outpatient ASHAOswaldo ANTONIO STAHL [id number] [facility] 2022-08-02 09:56:02 2022-08-02 09:56:02 Outpatient SFA [facility] [id number] [facility] [place] 2022-07-19 10:54:12 2022-07-19 10:54:12 Outpatient SFA [facility] [id number] [place] 2022-07-12 13:01:10 2022-07-12 13:01:10 Outpatient SFA [facility] [id number] Philip Colby Codey 2022-07-06 14:38:17 2022-07-06 14:38:17 Outpatient SFA [facility] [address] 2022-07-06 00:00:00 2022-07-06 00:00:00 Outpatient Visit [id number] -[id number] 0z3-3brh-2 bd6-2ad3ca [id number] 2022-06-29 11:06:43 2022-06-29 11:06:43 Outpatient [facility] [address] 2022-06-29 00:00:00 2022-06-29 00:00:00 Outpatient Visit [id number] -[id number] o66-2hs0-7 [id number]-d8eb86 [id number] 2022-06-23 10:34:08 2022-06-23 10:34:08 Outpatient [facility] [id number] 2022-06-23 00:00:00 2022-06-23 00:00:00 Outpatient Visit [id number] -[id number] [id number]-i [id number] 4594-09-29 11:37:54 2022-06-03 11:37:54 Outpatient [facility] [id number] 2022-05-27 00:00:00 2022-05-27 00:00:00 Outpatient Visit [id number] -[id number] [id number] n7p-45r2-i 05a-ecbd1c [id number] 00:00:00 2021-05-18 00:00:00 Patient Secure Msg Doctor Unassigned, [place] [facility] [id number] [id number] [id number] General acute hospital 2021-05-17 12:20:00 2021-05-17 13:32:00 Emergency [place] [facility] [id number] [id number] 4.2.7.2.686 [id number] General acute hospital 2021-05-17 11:46:00 2021-05-17 11:46:00 Emergency X [facility] ERT [id number] General acute hospital Results Test Description Test Time Test Comments Results Result Co mments Source PSA, [id number] 04:57:49* Test Item Value Reference Range Interpretation Comme nts PSA, TOTAL (test code = 2606) 1.93 NG/ML See_Comment NOTE: Methodolog y is [employer] Electrochemiluminescence Immunoassay traceable to WHO reference standard 96/760. [Automated message] The system which generated this result transmitted reference range: <=4.00. The reference range was not used to interpret this result as normal/abnormal. CBC W/AUTO DIFF WITH [id number] 03:27:34* Test Item Value Reference Range Interpretation [...] 0.00-0.10 ABS NUCLEATED RBCS (test code = 97522) 0.00 K/UL 0.00-0.11 LIPID [id number] 03:20:10* Test Item Value Reference Range Interpretation [...] SPECIMENS. FOR MOREINFORMATION, SEE CLIENT ANNOUNCEMENT AT [email or web address] RISK RATIO LDL/HDL (test code = 2238) 2.20 RATIO <3.55 [id number] 06:44:59* Test Item Value Reference Range Interpretation Comme nts TESTOSTERONE (test code = 2830) 181 NG/DL 300-890 L UNLESS OTHERWISE INDICATED, ALL TESTING PERFORMED [facility] [address] [place] [address] PEDIATRIC RADIOLOGIST: DIAMOND ODELL M.D. CLIA NUMBER [id number] [facility] [place]. [id number] 00:00:00* Test Item Value Reference Range Interpretation Comme nts TESTOSTERONE (test code = 2830) 181 NG/DL TSH, THIRD [id number] 06:46:28* Test Item Value Reference Range Interpretation Comme nts TSH, THIRD GENERATION (test code = 2821) 2.570 UIU/ML 0.400-4.100 SEDIMENTATION [id number] 06:44:10* Test Item Value Reference Range Interpretation Comme nts SEDIMENTATION RATE (test cod e = 1017) 16 MM/HOUR 0-15 H [id number] 05:48:38* Test Item Value Reference Range Interpretation Comme nts TESTOSTERONE (test code = 2830) 173 NG/DL 300-890 L C-REACTIVE [id number] 05:06:35* Test Item Value Reference Range Interpretation Comme nts C-REACTIVE PROTEIN (test cod e = 3513) 0.7 MG/DL <0.5 H [id number] 04:49:21* Test Item Value Reference Range Interpretation Comme nts CREATININE (test code = 2214) 1.07 MG/DL 0.80-1.40 eGFR (2020 CKD-EPI) (test code = 92982) 81 ML/MIN/1.73 >60 UNLESS OTHER PERSON INDICATED, ALL TESTING PERFORMED [facility] [employer] [address] [place] [id number] PEDIATRIC RADIOLOGIST: DIAMOND ODELL M.D. CLIA NUMBER [id number] [facility] [place]. [id number] CBC W/AUTO DIFF WITH [id number] 04:05:47* Test Item Value Reference Range Interpretation [...] = 1065) 0.0 /100 WBC'S See_Comment [Automated [employer]] The system which generated this result [...] 0.00-0.10 ABS NUCLEATED RBCS (test code = 79108) 0.00 K/UL 0.00-0.11 CBC W/AUTO [id number] 00:00:00* Test Item Value Reference Range Interpretation [...] ABS NUCLEATED RBCS (test cod e = 51083) 0.00 K/UL [id number] 00:00:00* Test Item Value Reference Range Interpretation Comme nts TESTOSTERONE (test code = 2830) 173 NG/DL TSH, THIRD [id number] 00:00:00* Test Item Value Reference Range Interpretation Comme nts TSH, THIRD GENERATION (test code = 2821) 2.570 UIU/ML SEDIMENTATION [id number] 00:00:00* Test Item Value Reference Range Interpretation Comme nts SEDIMENTATION RATE (test cod e = 1017) 16 MM/HOUR C-REACTIVE [id number] 00:00:00* Test Item Value Reference Range Interpretation Comme nts C-REACTIVE PROTEIN (test cod e = 3513) 0.7 MG/DL [id number] 00:00:00* Test Item Value Reference Range Interpretation Comme nts CREATININE (test code = 2214) 1.07 MG/DL eGFR (2020 CKD-EPI) (test co de = 48754) 81 ML/MIN/1.73 CBC W/AUTO [id number] 00:00:00* Test Item Value Reference Range Interpretation [...] ABS NUCLEATED RBCS (test cod e = 11993) 0.00 K/UL [id number] 00:00:00* Test Item Value Reference Range Interpretation Comme nts TESTOSTERONE (test code = 2830) 173 NG/DL TSH, THIRD [id number] 00:00:00* Test Item Value Reference Range Interpretation Comme nts TSH, THIRD GENERATION (test code = 2821) 2.570 UIU/ML SEDIMENTATION [id number] 00:00:00* Test Item Value Reference Range Interpretation Comme nts SEDIMENTATION RATE (test cod e = 1017) 16 MM/HOUR C-REACTIVE [id number] 00:00:00* Test Item Value Reference Range Interpretation Comme nts C-REACTIVE PROTEIN (test cod e = 3513) 0.7 MG/DL [id number] 00:00:00* Test Item Value Reference Range Interpretation Comme nts CREATININE (test code = 2214) 1.07 MG/DL eGFR (2020 CKD-EPI) (test co de = 54683) 81 ML/MIN/1.73 CBC W/AUTO [id number] 00:00:00* Test Item Value Reference Range Interpretation [...] ABS NUCLEATED RBCS (test cod e = 49289) 0.00 K/UL [id number] 00:00:00* Test Item Value Reference Range Interpretation Comme nts TESTOSTERONE (test code = 2830) 173 NG/DL TSH, THIRD [id number] 00:00:00* Test Item Value Reference Range Interpretation Comme nts TSH, THIRD GENERATION (test code = 2821) 2.570 UIU/ML SEDIMENTATION [id number] 00:00:00* Test Item Value Reference Range Interpretation Comme nts SEDIMENTATION RATE (test cod e = 1017) 16 MM/HOUR C-REACTIVE [id number] 00:00:00* Test Item Value Reference Range Interpretation Comme nts C-REACTIVE PROTEIN (test cod e = 3513) 0.7 MG/DL [id number] 00:00:00* Test Item Value Reference Range Interpretation Comme nts CREATININE (test code = 2214) 1.07 MG/DL eGFR (2020 CKD-EPI) (test co de = 69936) 81 ML/MIN/1.73 HEMOGLOBIN [id number] 10:19:29* Test Item Value Reference Range Interpretation Comme nts HEMOGLOBIN A1c (test code = 82321) 5.9 % 4.2-5.6 H COMPREHENSIVE METABOLIC [id number] 04:39:34* Test Item Value Reference Range Interpretation Comme nts GLUCOSE (test code = 2217) 126 MG/DL 70-99 H BUN (test code = 2208) 20 MG/DL 6-20 CREATININE (test code = 2214) 1.12 MG/DL 0.80-1.40 eGFR (2020 CKD-EPI) (test code = 95435) 77 ML/MIN/1.73 >60 CALC BUN/CREAT (test code = 2235) 18 RATIO 6-28 SODIUM (test code = 2231) 141 MEQ/L 133-146 POTASSIUM (test code = 2227) 3.8 MEQ/L 3.5-5.4 CHLORIDE (test code = 2215) 102 MEQ/L 95-107 CARBON DIOXIDE (test code = 2205) 27 MEQ/L 19-31 CALCIUM (test code = 2208) 10.0 MG/DL 8.5-10.5 PROTEIN, TOTAL (test code = 2228) 7.1 G/DL 6.1-8.3 ALBUMIN (test code = 2200) 4.2 G/DL 3.5-5.2 CALC GLOBULIN (test code = 2239) 2.9 G/DL 1.9-3.7 CALC A/G RATIO (test code = 2233) 1.4 RATIO 1.0-2.6 BILIRUBIN, TOTAL (test code = 2206) 0.4 MG/DL See_Comment [Automated me ssage] The system which generated this result transmitted reference range: <=1.2. The reference range was not used to interpret this result as normal/abnormal. ALKALINE PHOSPHATASE (test code = 2203) 101 U/L 40-123 AST (test code = 2217) 24 U/L 9-50 ALT (test code = 2218) 42 U/L 5-50 LIPID [id number] 04:39:34* Test Item Value Reference Range Interpretation Comme nts CHOLESTEROL (test code = 221) 246 MG/DL <200 H TRIGLYCERIDES (test code = 2232) 209 MG/DL <150 H HDL CHOLESTEROL (test code = 2219) 48 MG/DL >39 CALC LDL CHOL (test code = 2236) 161 MG/DL <100 H NOTE: CALCULATED LDL IS BASED ON ARAVIND-CLAIRE METHOD WHICHINCLUDES ADJUSTABLE TRIGLYCERIDE:VLDL CHOLESTEROL RATIO.THIS FACTOR VARIES BY MEASURED TRIGLYCERIDE AND NON-HDLCHOLESTEROL CONCENTRATIONS WITH INCREASED CALCULATED LDL SEENIN HIGHER TRIGLYCERIDE OR LOWER NON-HDL SPECIMENS. FOR MOREINFORMATION, SEE CLIENT ANNOUNCEMENT AT [email or web address] RISK RATIO LDL/HDL (test code = 223) 3.35 RATIO <3.55 UNLESS OTHERW ISE INDICATED, [facility] TESTING PER[facility] [address] [place] [id number] PEDIATRIC RADIOLOGIST: DIAMOND ODELL M.D. CLIA NUMBER [id number] [facility] [place]. [id number] COMPREHENSIVE METABOLIC [id number] 00:00:00* Test Item Value Reference Range Interpretation Comme nts GLUCOSE (test code = 2217) 126 MG/DL BUN (test code = 2208) 20 MG/DL CREATININE (test code = 2214) 1.12 MG/DL eGFR (2020 CKD-EPI) (test co de = 29290) 77 ML/MIN/1.73 CALC BUN/CREAT (test code = [...] (test code = 2219) 42 U/L HEMOGLOBIN [id number] 00:00:00* Test Item Value Reference Range Interpretation Comme nts HEMOGLOBIN A1c (test code = 20383) 5.9 % LIPID [id number] 00:00:00* Test Item Value Reference Range Interpretation Comme nts CHOLESTEROL (test code = 2210) 246 MG/DL TRIGLYCERIDES (test code = 2232) 209 MG/DL HDL CHOLESTEROL (test code = 2220) 48 MG/DL CALC LDL CHOL (test code = 2237) 161 MG/DL RISK RATIO LDL/HDL (test cod e = 2238) 3.35 RATIO COMPREHENSIVE METABOLIC [id number] 00:00:00* Test Item Value Reference Range Interpretation Comme nts GLUCOSE (test code = 2217) 126 MG/DL BUN (test code = 2208) 20 MG/DL CREATININE (test code = 2214) 1.12 MG/DL eGFR (2020 CKD-EPI) (test co de = 03839) 77 ML/MIN/1.73 CALC BUN/CREAT (test code = [...] (test code = 2219) 42 U/L HEMOGLOBIN [id number] 00:00:00* Test Item Value Reference Range Interpretation Comme nts HEMOGLOBIN A1c (test code = 48974) 5.9 % LIPID [id number] 00:00:00* Test Item Value Reference Range Interpretation Comme nts CHOLESTEROL (test code = 2210) 246 MG/DL TRIGLYCERIDES (test code = 2232) 209 MG/DL HDL CHOLESTEROL (test code = 2220) 48 MG/DL CALC LDL CHOL (test code = 2237) 161 MG/DL RISK RATIO LDL/HDL (test cod e = 2238) 3.35 RATIO COMPREHENSIVE METABOLIC [id number] 00:00:00* Test Item Value Reference Range Interpretation Comme nts GLUCOSE (test code = 2217) 126 MG/DL BUN (test code = 2208) 20 MG/DL CREATININE (test code = 2214) 1.12 MG/DL eGFR (2020 CKD-EPI) (test co de = 99970) 77 ML/MIN/1.73 CALC BUN/CREAT (test code = [...] (test code = 2219) 42 U/L HEMOGLOBIN [id number] 00:00:00* Test Item Value Reference Range Interpretation Comme nts HEMOGLOBIN A1c (test code = 90992) 5.9 % LIPID [id number] 00:00:00* Test Item Value Reference Range Interpretation Comme nts CHOLESTEROL (test code = 2210) 246 MG/DL TRIGLYCERIDES (test code = 2232) 209 MG/DL HDL CHOLESTEROL (test code = 2220) 48 MG/DL CALC LDL CHOL (test code = 2237) 161 MG/DL RISK RATIO LDL/HDL (test cod e = 2238) 3.35 RATIO HEMOGLOBIN [id number] 05:30:45* Test Item Value Reference Range Interpretation Comme nts HEMOGLOBIN A1c (test code = 83430) 6.2 % 4.2-5.6 H UNLESS OTHERWISE INDICATED, ALL TESTING PERFORMED [facility] [address] [place] [address] PEDIATRIC RADIOLOGIST: DIAMOND ODELL M.D. CLIA NUMBER [id number] [place]. [id number] COMPREHENSIVE METABOLIC [id number] 04:18:35* Test Item Value Reference Range Interpretation Comme nts GLUCOSE (test code = 2217) 167 MG/DL 70-99 H BUN (test code = 2208) 21 MG/DL 6-20 H CREATININE (test code = 2214) 1.18 MG/DL 0.80-1.40 eGFR (2020 CKD-EPI) (test code = 37758) 72 ML/MIN/1.73 >60 CALC BUN/CREAT (test code [...] 17 U/L 9-50 ALT (test code = 221) 32 U/L 5-50 LIPID [id number] 04:18:35* Test Item Value Reference Range Interpretation [...] SPECIMENS. FOR MOREINFORMATION, SEE CLIENT ANNOUNCEMENT AT [email or web address] RISK RATIO LDL/HDL (test code = 2238) 2.96 RATIO <3.55 COMPREHENSIVE METABOLIC [id number] 00:00:00* Test Item Value Reference Range Interpretation Comme nts GLUCOSE (test code = 2217) 167 MG/DL BUN (test code = 2208) 21 MG/DL CREATININE (test code = 2214) 1.18 MG/DL eGFR (2020 CKD-EPI) (test co de = 28693) 72 ML/MIN/1.73 CALC BUN/CREAT (test code = [...] (test code = 2219) 32 U/L LIPID [id number] 00:00:00* Test Item Value Reference Range Interpretation Comme nts CHOLESTEROL (test code = 2210) 240 MG/DL TRIGLYCERIDES (test code = 2232) 160 MG/DL HDL CHOLESTEROL (test code = 2220) 53 MG/DL CALC LDL CHOL (test code = 2237) 157 MG/DL RISK RATIO LDL/HDL (test cod e = 2238) 2.96 RATIO 2708 HEMOGLOBIN [id number] 00:00:00* Test Item Value Reference Range Interpretation Comme nts HEMOGLOBIN A1c (test code = 34136) 6.2 % COMPREHENSIVE METABOLIC [id number] 00:00:00* Test Item Value Reference Range Interpretation Comme nts GLUCOSE (test code = 2217) 167 MG/DL BUN (test code = 2208) 21 MG/DL CREATININE (test code = 2214) 1.18 MG/DL eGFR (2020 CKD-EPI) (test co de = 53457) 72 ML/MIN/1.73 CALC BUN/CREAT (test code = [...] (test code = 2219) 32 U/L LIPID [id number] 00:00:00* Test Item Value Reference Range Interpretation Comme nts CHOLESTEROL (test code = 2210) 240 MG/DL TRIGLYCERIDES (test code = 2232) 160 MG/DL HDL CHOLESTEROL (test code = 2220) 53 MG/DL CALC LDL CHOL (test code = 2237) 157 MG/DL RISK RATIO LDL/HDL (test cod e = 2238) 2.96 RATIO 2708 HEMOGLOBIN [id number] 00:00:00* Test Item Value Reference Range Interpretation Comme nts HEMOGLOBIN A1c (test code = 85560) 6.2 % COMPREHENSIVE METABOLIC [id number] 00:00:00* Test Item Value Reference Range Interpretation Comme nts GLUCOSE (test code = 2217) 167 MG/DL BUN (test code = 2208) 21 MG/DL CREATININE (test code = 2214) 1.18 MG/DL eGFR (2020 CKD-EPI) (test co de = 31335) 72 ML/MIN/1.73 CALC BUN/CREAT (test code = [...] code = 2219) 32 U/L COMPREHENSIVE METABOLIC [id number] 00:00:00* Test Item Value Reference Range Interpretation Comme nts GLUCOSE (test code = 2217) 167 MG/DL BUN (test code = 2208) 21 MG/DL CREATININE (test code = 2214) 1.18 MG/DL eGFR (2020 CKD-EPI) (test co de = 98843) 72 ML/MIN/1.73 CALC BUN/CREAT (test code = [...] (test code = 2219) 32 U/L LIPID [id number] 00:00:00* Test Item Value Reference Range Interpretation Comme nts CHOLESTEROL (test code = 2210) 240 MG/DL TRIGLYCERIDES (test code = 2232) 160 MG/DL HDL CHOLESTEROL (test code = 2220) 53 MG/DL CALC LDL CHOL (test code = 2237) 157 MG/DL RISK RATIO LDL/HDL (test cod e = 2238) 2.96 RATIO 2708 HEMOGLOBIN [id number] 00:00:00* Test Item Value Reference Range Interpretation Comme nts HEMOGLOBIN A1c (test code = 88333) 6.2 % LIPID [id number] 00:00:00* Test Item Value Reference Range Interpretation Comme nts CHOLESTEROL (test code = 2210) 240 MG/DL TRIGLYCERIDES (test code = 2232) 160 MG/DL HDL CHOLESTEROL (test code = 2220) 53 MG/DL CALC LDL CHOL (test code = 2237) 157 MG/DL RISK RATIO LDL/HDL (test cod e = 2238) 2.96 RATIO 2708 HEMOGLOBIN [id number] 00:00:00* Test Item Value Reference Range Interpretation Comme nts HEMOGLOBIN A1c (test code = 44996) 6.2 % [id number] 17:51:37* Test Item Value Reference Range Interpretation Comme nts APPEARANCE (test code = 7088159318) Clear Clear COLOR (test code = 3481911959) Yellow Yellow PH (test code = 7329718025) 4.8-8.0 SP GRAVITY (test code = 8109611437) 1.003-1.030 GLU U QUAL (test code = 5827800792) Normal Normal BLOOD (test code = 0127044572) Negative Negative KETONES (test code = 0797150977) Negative Negative PROTEIN (test code = 2887-8) Negative Negative UROBILIN (test code = 2337513505) Normal Normal BILIRUBIN (test code = 5093914798) Negative Negative NITRITE (test code = 3855959544) Negative Negative LEUK SADIQ (test code = 6745257631) Negative Negative RBC/HPF (test code = 8144537699) See_Comment [Automated [employer]] The system which generated this result transmitted reference range: 0 - 3 HPF. The reference range was not used to interpret this result as normal/abnormal. WBC/HPF (test code = 9485935534) See_Comment [Automated [employer]] The system which generated this result transmitted reference range: 0 - 5 HPF. The reference range was not used to interpret this result as normal/abnormal. BACTERIA (test code = 5158594650) Negative Negative MUCOUS (test code = 9087940136) Slight Negative LPF A SQ EPITH (test code = 0131128886) <1 HPF Lab Interpretation (test code = 27109-3) [id number]* Test Item Value Reference Range Interpretation Comme nts APPEARANCE (test code = 2035236589) Clear Clear COLOR (test code = 8823527749) Yellow Yellow PH (test code = 1021054711) 4.8-8.0 SP GRAVITY (test code = 5640949792) 1.003-1.030 GLU U QUAL (test code = 5182047113) Normal Normal BLOOD (test code = 2292397126) Negative Negative KETONES (test code = 1379892677) Negative Negative PROTEIN (test code = 2887-8) Negative Negative UROBILIN (test code = 9631620459) Normal Normal BILIRUBIN (test code = 5317835631) Negative Negative NITRITE (test code = 8444792117) Negative Negative LEUK SADIQ (test code = 9569147332) Negative Negative RBC/HPF (test code = 8813051933) See_Comment [Automated messa ge] The system which generated this result transmitted reference range: 0 - 3 HPF. The reference range was not used to interpret this result as normal/abnormal. WBC/HPF (test code = 4018607861) See_Comment [Automated messa ge] The system which generated this result transmitted reference range: 0 - 5 HPF. The reference range was not used to interpret this result as normal/abnormal. BACTERIA (test code = 0756057904) Negative Negative MUCOUS (test code = 1763636706) Slight Negative LPF A SQ EPITH (test code = 2404953677) <1 HPF Lab Interpretation (test code = 09029-2) [facility] [id number] 00:00:00* Test Item Value Reference Range Interpretation [...] code = 1015) 287 K/UL COMPREHENSIVE METABOLIC [id number] 00:00:00* Test Item Value Reference Range Interpretation Comme nts GLUCOSE (test code = 2217) 84 MG/DL BUN (test code = 2208) 16 MG/DL CREATININE (test code = 2214) 1.03 MG/DL eGFR AMER. (test cod e = 89521) 94 ML/MIN/1.73 eGFR NON- AMER. (test code = 51660) 81 ML/MIN/1.73 CALC BUN/CREAT (test code = [...] (test code = 2219) 31 U/L HEMOGLOBIN [id number] 00:00:00* Test Item Value Reference Range Interpretation Comme nts HEMOGLOBIN A1c (test code = 67211) 5.9 % LIPID [id number] 00:00:00* Test Item Value Reference Range Interpretation Comme nts CHOLESTEROL (test code = 2210) 281 MG/DL TRIGLYCERIDES (test code = 2232) 352 MG/DL HDL CHOLESTEROL (test code = 2220) 49 MG/DL CALC LDL CHOL (test code = 2237) 162 MG/DL RISK RATIO LDL/HDL (test cod e = 2238) 3.30 RATIO CBC W/AUTO [id number] 00:00:00* Test Item Value Reference Range Interpretation [...] code = 1015) 287 K/UL COMPREHENSIVE METABOLIC [id number] 00:00:00* Test Item Value Reference Range Interpretation Comme nts GLUCOSE (test code = 2217) 84 MG/DL BUN (test code = 2208) 16 MG/DL CREATININE (test code = 2214) 1.03 MG/DL eGFR AMER. (test cod e = 37233) 94 ML/MIN/1.73 eGFR NON- AMER. (test code = 80992) 81 ML/MIN/1.73 CALC BUN/CREAT (test code = [...] (test code = 2219) 31 U/L HEMOGLOBIN [id number] 00:00:00* Test Item Value Reference Range Interpretation Comme nts HEMOGLOBIN A1c (test code = 70910) 5.9 % LIPID [id number] 00:00:00* Test Item Value Reference Range Interpretation Comme nts CHOLESTEROL (test code = 2210) 281 MG/DL TRIGLYCERIDES (test code = 2232) 352 MG/DL HDL CHOLESTEROL (test code = 2220) 49 MG/DL CALC LDL CHOL (test code = 2237) 162 MG/DL RISK RATIO LDL/HDL (test cod e = 2238) 3.30 RATIO CBC W/AUTO [id number] 00:00:00* Test Item Value Reference Range Interpretation [...] code = 1015) 287 K/UL CBC W/AUTO [id number] 00:00:00* Test Item Value Reference Range Interpretation [...] code = 1015) 287 K/UL COMPREHENSIVE METABOLIC [id number] 00:00:00* Test Item Value Reference Range Interpretation Comme nts GLUCOSE (test code = 2217) 84 MG/DL BUN (test code = 2208) 16 MG/DL CREATININE (test code = 2214) 1.03 MG/DL eGFR AMER. (test cod e = 26878) 94 ML/MIN/1.73 eGFR NON- AMER. (test code = 28077) 81 ML/MIN/1.73 CALC BUN/CREAT (test code = [...] 1.5 RATIO BILIRUBIN, TOTAL (test code = 220) 0.3 MG/DL ALKALINE PHOSPHATASE (test code = 2203) 122 U/L AST (test code = 221) 20 U/L ALT (test code = 2219) 31 U/L HEMOGLOBIN [id number] 00:00:00* Test Item Value Reference Range Interpretation Comme nts HEMOGLOBIN A1c (test code = 12774) 5.9 % LIPID [id number] 00:00:00* Test Item Value Reference Range Interpretation Comme nts CHOLESTEROL (test code = 2210) 281 MG/DL TRIGLYCERIDES (test code = 2232) 352 MG/DL HDL CHOLESTEROL (test code = 0) 49 MG/DL CALC LDL CHOL (test code = 2237) 162 MG/DL RISK RATIO LDL/HDL (test cod e = 2238) 3.30 RATIO COMPREHENSIVE METABOLIC [id number] 00:00:00* Test Item Value Reference Range Interpretation Comme nts GLUCOSE (test code = 7) 84 MG/DL BUN (test code = 8) 16 MG/DL CREATININE (test code = 2214) 1.03 MG/DL eGFR AMER. (test cod e = 20538) 94 ML/MIN/1.73 eGFR NON- AMER. (test code = 86590) 81 ML/MIN/1.73 CALC BUN/CREAT (test code = [...] (test code = 2219) 31 U/L HEMOGLOBIN [id number] 00:00:00* Test Item Value Reference Range Interpretation Comme nts HEMOGLOBIN A1c (test code = 25536) 5.9 % LIPID [id number] 00:00:00* Test Item Value Reference Range Interpretation Comme nts CHOLESTEROL (test code = 2210) 281 MG/DL TRIGLYCERIDES (test code = 2232) 352 MG/DL HDL CHOLESTEROL (test code = 2220) 49 MG/DL CALC LDL CHOL (test code = 223) 162 MG/DL RISK RATIO LDL/HDL (test cod e = 2238) 3.30 RATIO COMPREHENSIVE METABOLIC [id number] 00:00:00* Test Item Value Reference Range Interpretation Comme nts GLUCOSE (test code = 7) 102 MG/DL BUN (test code = 8) 18 MG/DL CREATININE (test code = 2214) 1.10 MG/DL eGFR AMER. (test cod e = 79728) 88 ML/MIN/1.73 eGFR NON- AMER. (test code = 29376) 76 ML/MIN/1.73 CALC BUN/CREAT (test code = [...] (test code = 2219) 32 U/L LIPID [id number] 00:00:00* Test Item Value Reference Range Interpretation Comme nts CHOLESTEROL (test code = 2210) 262 MG/DL TRIGLYCERIDES (test code = 2232) 189 MG/DL HDL CHOLESTEROL (test code = 2220) 58 MG/DL CALC LDL CHOL (test code = 2237) 166 MG/DL RISK RATIO LDL/HDL (test cod e = 2238) 2.87 RATIO COMPREHENSIVE METABOLIC [id number] 00:00:00* Test Item Value Reference Range Interpretation Comme nts GLUCOSE (test code = 2217) 102 MG/DL BUN (test code = 2208) 18 MG/DL CREATININE (test code = 2214) 1.10 MG/DL eGFR AMER. (test cod e = 44528) 88 ML/MIN/1.73 eGFR NON- AMER. (test code = 55216) 76 ML/MIN/1.73 CALC BUN/CREAT (test code = [...] (test code = 2219) 32 U/L LIPID [id number] 00:00:00* Test Item Value Reference Range Interpretation Comme nts CHOLESTEROL (test code = 2210) 262 MG/DL TRIGLYCERIDES (test code = 2232) 189 MG/DL HDL CHOLESTEROL (test code = 2220) 58 MG/DL CALC LDL CHOL (test code = 2237) 166 MG/DL RISK RATIO LDL/HDL (test cod e = 2238) 2.87 RATIO COMPREHENSIVE METABOLIC [id number] 00:00:00* Test Item Value Reference Range Interpretation Comme nts GLUCOSE (test code = 2217) 102 MG/DL BUN (test code = 2208) 18 MG/DL CREATININE (test code = 2214) 1.10 MG/DL eGFR AMER. (test cod e = 25910) 88 ML/MIN/1.73 eGFR NON- AMER. (test code = 31497) 76 ML/MIN/1.73 CALC BUN/CREAT (test code = [...] (test code = 2219) 32 U/L LIPID [id number] 00:00:00* Test Item Value Reference Range Interpretation Comme nts CHOLESTEROL (test code = 2210) 262 MG/DL TRIGLYCERIDES (test code = 2232) 189 MG/DL HDL CHOLESTEROL (test code = 2220) 58 MG/DL CALC LDL CHOL (test code = 2237) 166 MG/DL RISK RATIO LDL/HDL (test cod e = 2238) 2.87 RATIO COMPREHENSIVE METABOLIC [id number] 00:00:00* Test Item Value Reference Range Interpretation Comme nts GLUCOSE (test code = 2217) 102 MG/DL BUN (test code = 2208) 18 MG/DL CREATININE (test code = 2214) 1.10 MG/DL eGFR AMER. (test cod e = 11907) 88 ML/MIN/1.73 eGFR NON- AMER. (test code = 93086) 76 ML/MIN/1.73 CALC BUN/CREAT (test code = [...] (test code = 2219) 32 U/L LIPID [id number] 00:00:00* Test Item Value Reference Range Interpretation Comme nts CHOLESTEROL (test code = 2210) 262 MG/DL TRIGLYCERIDES (test code = 2232) 189 MG/DL HDL CHOLESTEROL (test code = 2220) 58 MG/DL CALC LDL CHOL (test code = 2237) 166 MG/DL RISK RATIO LDL/HDL (test cod e = 2238) 2.87 RATIO COMPREHENSIVE METABOLIC [id number] 00:00:00* Test Item Value Reference Range Interpretation Comme nts GLUCOSE (test code = 2217) 79 MG/DL BUN (test code = 2208) 14 MG/DL CREATININE (test code = 2214) 0.95 MG/DL eGFR AMER. (test cod e = 72509) 105 ML/MIN/1.73 eGFR NON- AMER. (test code = 46669) 91 ML/MIN/1.73 CALC BUN/CREAT (test code = [...] (test code = 2219) 23 U/L LIPID [id number] 00:00:00* Test Item Value Reference Range Interpretation Comme nts CHOLESTEROL (test code = 2210) 242 MG/DL TRIGLYCERIDES (test code = 2232) 233 MG/DL HDL CHOLESTEROL (test code = 2220) 52 MG/DL CALC LDL CHOL (test code = 2237) 143 MG/DL RISK RATIO LDL/HDL (test cod e = 2238) 2.76 RATIO COMPREHENSIVE METABOLIC [id number] 00:00:00* Test Item Value Reference Range Interpretation Comme nts GLUCOSE (test code = 2217) 79 MG/DL BUN (test code = 2208) 14 MG/DL CREATININE (test code = 2214) 0.95 MG/DL eGFR AMER. (test cod e = 07908) 105 ML/MIN/1.73 eGFR NON- AMER. (test code = 87149) 91 ML/MIN/1.73 CALC BUN/CREAT (test code = [...] (test code = 2219) 23 U/L LIPID [id number] 00:00:00* Test Item Value Reference Range Interpretation Comme nts CHOLESTEROL (test code = 2210) 242 MG/DL TRIGLYCERIDES (test code = 2232) 233 MG/DL HDL CHOLESTEROL (test code = 2220) 52 MG/DL CALC LDL CHOL (test code = 2237) 143 MG/DL RISK RATIO LDL/HDL (test cod e = 2238) 2.76 RATIO COMPREHENSIVE METABOLIC [id number] 00:00:00* Test Item Value Reference Range Interpretation Comme nts GLUCOSE (test code = 2217) 79 MG/DL BUN (test code = 2208) 14 MG/DL CREATININE (test code = 2214) 0.95 MG/DL eGFR AMER. (test cod e = 36839) 105 ML/MIN/1.73 eGFR NON- AMER. (test code = 45019) 91 ML/MIN/1.73 CALC BUN/CREAT (test code = [...] code = 2219) 23 U/L COMPREHENSIVE METABOLIC [id number] 00:00:00* Test Item Value Reference Range Interpretation Comme nts GLUCOSE (test code = 2217) 79 MG/DL BUN (test code = 2208) 14 MG/DL CREATININE (test code = 2214) 0.95 MG/DL eGFR AMER. (test cod e = 90096) 105 ML/MIN/1.73 eGFR NON- AMER. (test code = 71442) 91 ML/MIN/1.73 CALC BUN/CREAT (test code = [...] (test code = 2219) 23 U/L LIPID [id number] 00:00:00* Test Item Value Reference Range Interpretation Comme nts CHOLESTEROL (test code = 2210) 242 MG/DL TRIGLYCERIDES (test code = 2232) 233 MG/DL HDL CHOLESTEROL (test code = 2220) 52 MG/DL CALC LDL CHOL (test code = 2237) 143 MG/DL RISK RATIO LDL/HDL (test cod e = 2238) 2.76 RATIO LIPID [id number] 00:00:00* Test Item Value Reference Range Interpretation Comme nts CHOLESTEROL (test code = 2210) 242 MG/DL TRIGLYCERIDES (test code = 2232) 233 MG/DL HDL CHOLESTEROL (test code = 2220) 52 MG/DL CALC LDL CHOL (test code = 2237) 143 MG/DL RISK RATIO LDL/HDL (test cod e = 2238) 2.76 RATIO COMPREHENSIVE METABOLIC [id number] 00:00:00* Test Item Value Reference Range Interpretation Comme nts GLUCOSE (test code = 2217) 108 MG/DL BUN (test code = 2208) 16 MG/DL CREATININE (test code = 2214) 0.95 MG/DL eGFR AMER. (test cod e = 67731) 107 ML/MIN/1.73 eGFR NON- AMER. (test code = 96459) 92 ML/MIN/1.73 CALCULATED BUN/CREAT (test code = [...] (test code = 2219) 28 U/L LIPID [id number] 00:00:00* Test Item Value Reference Range Interpretation Comme nts CHOLESTEROL (test code = 2210) 249 MG/DL TRIGLYCERIDES (test code = 2232) 156 MG/DL HDL CHOLESTEROL (test code = 2220) 55 MG/DL CALCULATED LDL CHOL (test co de = 2237) 163 MG/DL RISK RATIO LDL/HDL (test cod e = 2238) 2.96 RATIO CBC W/AUTO [id number] 00:00:00* Test Item Value Reference Range Interpretation [...] (test code = 1015) 276 K/UL HEMOGLOBIN [id number] 00:00:00* Test Item Value Reference Range Interpretation Comme nts HEMOGLOBIN A1c (test code = 36430) 5.9 % [id number] 00:00:00* Test Item Value Reference Range Interpretation Comme nts TSH (test code = 2821) 2.1 UIU/ML COMPREHENSIVE METABOLIC [id number] 00:00:00* Test Item Value Reference Range Interpretation Comme nts GLUCOSE (test code = 2217) 108 MG/DL BUN (test code = 2208) 16 MG/DL CREATININE (test code = 2214) 0.95 MG/DL eGFR AMER. (test cod e = 16752) 107 ML/MIN/1.73 eGFR NON- AMER. (test code = 86650) 92 ML/MIN/1.73 CALCULATED BUN/CREAT (test code = [...] (test code = 2219) 28 U/L LIPID [id number] 00:00:00* Test Item Value Reference Range Interpretation Comme nts CHOLESTEROL (test code = 2210) 249 MG/DL TRIGLYCERIDES (test code = 2232) 156 MG/DL HDL CHOLESTEROL (test code = 2220) 55 MG/DL CALCULATED LDL CHOL (test co de = 2237) 163 MG/DL RISK RATIO LDL/HDL (test cod e = 2238) 2.96 RATIO CBC W/AUTO [id number] 00:00:00* Test Item Value Reference Range Interpretation [...] (test code = 1015) 276 K/UL HEMOGLOBIN [id number] 00:00:00* Test Item Value Reference Range Interpretation Comme nts HEMOGLOBIN A1c (test code = 29333) 5.9 % [id number] 00:00:00* Test Item Value Reference Range Interpretation Comme nts TSH (test code = 2821) 2.1 UIU/ML COMPREHENSIVE METABOLIC [id number] 00:00:00* Test Item Value Reference Range Interpretation Comme nts GLUCOSE (test code = 2217) 108 MG/DL BUN (test code = 2208) 16 MG/DL CREATININE (test code = 2214) 0.95 MG/DL eGFR AMER. (test cod e = 01694) 107 ML/MIN/1.73 eGFR NON- AMER. (test code = 07753) 92 ML/MIN/1.73 CALCULATED BUN/CREAT (test code = [...] (test code = 2219) 28 U/L LIPID [id number] 00:00:00* Test Item Value Reference Range Interpretation Comme nts CHOLESTEROL (test code = 2210) 249 MG/DL TRIGLYCERIDES (test code = 2232) 156 MG/DL HDL CHOLESTEROL (test code = 2220) 55 MG/DL CALCULATED LDL CHOL (test co de = 2237) 163 MG/DL RISK RATIO LDL/HDL (test cod e = 2238) 2.96 RATIO COMPREHENSIVE METABOLIC [id number] 00:00:00* Test Item Value Reference Range Interpretation Comme nts GLUCOSE (test code = 2217) 108 MG/DL BUN (test code = 2208) 16 MG/DL CREATININE (test code = 2214) 0.95 MG/DL eGFR AMER. (test cod e = 12351) 107 ML/MIN/1.73 eGFR NON- AMER. (test code = 84771) 92 ML/MIN/1.73 CALCULATED BUN/CREAT (test code = [...] code = 2219) 28 U/L CBC W/AUTO [id number] 00:00:00* Test Item Value Reference Range Interpretation [...] (test code = 1015) 276 K/UL HEMOGLOBIN [id number] 00:00:00* Test Item Value Reference Range Interpretation Comme nts HEMOGLOBIN A1c (test code = 26000) 5.9 % [id number] 00:00:00* Test Item Value Reference Range Interpretation Comme nts TSH (test code = 2821) 2.1 UIU/ML LIPID [id number] 00:00:00* Test Item Value Reference Range Interpretation Comme nts CHOLESTEROL (test code = 2210) 249 MG/DL TRIGLYCERIDES (test code = 2232) 156 MG/DL HDL CHOLESTEROL (test code = 2220) 55 MG/DL CALCULATED LDL CHOL (test co de = 2237) 163 MG/DL RISK RATIO LDL/HDL (test cod e = 2238) 2.96 RATIO CBC W/AUTO [id number] 00:00:00* Test Item Value Reference Range Interpretation [...] (test code = 1015) 276 K/UL HEMOGLOBIN [id number] 00:00:00* Test Item Value Reference Range Interpretation Comme nts HEMOGLOBIN A1c (test code = 77219) 5.9 % [id number] 00:00:00* Test Item Value Reference Range Interpretation Comme nts TSH (test code = 2821) 2.1 UIU/ML Notes Date/Time Note Provider Source 2024-10-30 09:35:02 Chief Complaint Patient presents with Follow-up 6 months f/u Rt knee pain pt requesting Injection,meeta 04/24/2024,Vidal Consent per pt Citlaly Wren MA Medication reviewed with pt [facility] 2024-04-24 16:00:08 Chief Complaint Patient presents with Follow-Up Visit Right knee. Patient requesting injection Joyce Pinedo MA I [facility] 2024-02-15 16:20:21 Chief Complaint Patient presents with Hospital F/U [facility] 2024-02-14 08:06:25 Chief Complaint Patient presents with Follow-Up Visit Bilateral knee pain, but right is worse per patient. Patient also complains of swelling Joyce Pinedo MA I [facility] 2023-10-14 14:33:37 Chief Complaint Patient presents with Burn Ximena Berumen [facility] 2023-10-14 11:03:10 Chief Complaint Patient presents with Follow-up bilateral knee pain Joyce Pinedo [facility] 2023-09-19 16:17:23 Chief Complaint Patient presents with Shortness of Breath C/O CPAP doesn't seem to work, pain all over his body all the time, Lower back and shoulders Tamra Burciaga LVN [facility] 2023-09-02 14:02:15 Chief Complaint Patient presents with OTHER Bilat knee follow up Sandra Hernandez MA I [facility]
--- NOTE | 2024-10-30 19:30 | RAD REPORT ---
EXAM: CT Head Brain Wo Cont HISTORY: PAIN COMPARISON: 10/16/2024 TECHNIQUE: Multiple contiguous axial images were obtained for a CT of the brain without contrast. Sag ittal and coronal reformats were performed. One or more of the following dose reduction techniques were used: Automated exposure control, adjus tment of the mA and kV according to patient size, and iterative reconstruction. Unless otherwise specified, incidental findings do not require dedicated imaging follow-up. FINDINGS: No evidence of hydrocephalus, intracranial hemorrhage, or extra-axial fluid collection. The brain is normal in morphology. The calvarium is intact. The visualized paranasal sinuses and mastoid air cells are essentially clear . IMPRESSION: No evidence of acute intracranial abnormality.
--- NOTE | 2024-10-30 19:54 | RAD REPORT ---
EXAMINATION: ONE VIEW CHEST XR CLINICAL INDICATION: Male, 59 years old.,htn TECHNIQUE: Frontal chest projection is submitted. Examination is limited by patient positioning and t echnique. COMPARISON: 10/16/2024 FINDINGS: The lungs are grossly clear although suboptimal inspiratory effort somewhat limits evaluation. No pn eumothorax or sizable effusion. The heart is normal in size. Mediastinal contours are unremarkable. IMPRESSION: No acute intrathoracic abnormalities.
[2024-10-30 19:57] LABS: Absolute Basophils 0.1 K/uL (0-0.5); Absolute Eosinophils 0.5 K/uL (0-0.5); Absolute Lymphocytes (CBC) 2.7 K/uL (0.7-4.9); Absolute Monocytes 0.6 K/uL (0.1-1.3); Basophils % 0.9 % (0-1.3); Eosinophils % 6.7 % (0-4.4); Hematocrit 43.3 % (39.6-49.0); Hemoglobin 15.1 g/dL (13.6-17.9); Lymphocytes % 34.4 % (15.3-44.8); MCH 32.9 pg (27.0-35.0); MCHC 34.8 g/dL (32.0-36.0); MCV 94.5 fL (80-100); MPV 9.4 fL (7.6-11.3); Monocytes % 7.7 % (3.3-12.3); Neutrophils % 50.3 % (41.7-73.7); Platelets 247 thou/uL (152-406); RBC Red Blood Cell Count 4.58 M/uL (4.33-5.43); Red Cell Distribution Width 13.7 % (12.1-15.2)
[2024-10-30] MEDS ORDERED: ACETAMINOPHEN 500 MG TAB ONE (20:06)
[2024-10-30] MEDS ORDERED: KETOROLAC 30 MG/ML INJ ONE (20:06)
[2024-10-30] MEDS ORDERED: cloNIDine HCL 0.1 MG TAB ONE (20:07)
[2024-10-30 20:16] LABS: ALT/SGPT 55 U/L (16-61); AST/SGOT 21 U/L (15-37); Albumin 3.5 g/dL (3.4-5.0); Albumin/Globulin Ratio 0.8 (1.1-1.8); Alkaline Phosphatase 121 U/L (45-117); Anion Gap 6.5 mEq/L (5.0-15.0); BUN Blood Urea Nitrogen 14 mg/dL (7-18); Bicarbonate 31 mEq/L (21-32); Bilirubin Total 0.6 mg/dL (0.2-1.0); Globulin 4.6 g/dL (2.3-3.5); Glomerular Filtration Rate 75 ml/min (=/>90); Glucose Level 93 mg/dL (74-106); Magnesium 2.2 mg/dL (1.6-2.4); Potassium 3.5 mEq/L (3.5-5.1); Protein, Total 8.1 g/dL (6.4-8.2); Sodium Level 136 mEq/L (136-145); Troponin High Sensitivity 57.2 pg/mL (<58.9)
[2024-10-30 20:20] LABS: Bilirubin Direct < 0.2 mg/dL (0-0.2); Bilirubin Indirect, Calculated 0.4 mg/dL (0.2-0.8)
[2024-10-30] MEDS ORDERED: Magnesium Sulfate 2gm IVPB 2 G/50 ML BAG IV ONE (20:50)
--- NOTE | 2024-10-30 22:03 | EDPHYS ---
Physician Documentation [facility] Name: Soy Frias Age: 59 yrs Sex: Male : 1965 Arrival Date: 10/30/2024 Time: 17:37 Bed 13 Private MD: ED Physician Layo Lomax HPI: 10/30 18:23 This 59 yrs old Male presents to ER via Ambulatory with complaints of kb headache, htn. 18:23 Pt is a 59 year old male who presents for headache and hypertension. Pt has had a kb constant headache for 3 days, went to have knee injections done today and his systolic bp was 190 so they couldn't do it. Has appt with PCP tomorrow, but was told to come to the ER for evaluation. . 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 - Infectious Disease History:: Denies. - Social history:: Smoking status: Patient denies any tobacco usage or history of. ROS: 18:23 Constitutional: As per HPI kb Exam: 18:23 Constitutional: This is a well developed, well nourished patient who is awake, alert, kb and in no acute distress. Head/Face: Normocephalic, atraumatic. ENT: Moist Mucous membranes Cardiovascular: Regular rate Respiratory: Respirations even and unlabored. No increased work of breathing. Talking in full sentences Abdomen/GI: Soft, non-tender. No distention Skin: Warm, dry with normal turgor. Normal color. MS/ Extremity: Pulses equal, no cyanosis. Neurovascular intact. Full, normal range of motion. Neuro: Awake and alert, GCS 15, oriented to person, place, time, and situation. 20:32 ECG was reviewed by the Attending Physician. kb Vital Signs: 18:21 BP 185 / 98; Pulse 82; Resp 16; Temp 97.7; Pulse Ox 100% ; bp 19:55 BP 173 / 111; Pulse 75; Resp 17; Pulse Ox 99% ; rg5 20:45 BP 152 / 101; Pulse 70; Resp 17; Pulse Ox 98% on R/A; rg5 21:30 BP 149 / 95; Pulse 74; Resp 17; Pulse Ox 97% on R/A; Pain 0/10; rg5 21:30 Pain Scale: Adult rg5 MDM: 18:11 Medical Screening Exam initiated kb 22:01 Data reviewed: vital signs, nurses notes. kb 22:01 Differential diagnosis: hypertensive crisis, Malignant HTN, intracerebral hemorrhage. kb Consideration of Admission/Observation Escalation of care including admission/observation considered. admission considered but pt has had no chest pain, second troponin decreased, pt is feeling better after treatment and is ready to go home. Will follow up with PCP as scheduled tomorrow. Counseling: I had a detailed discussion with the patient and/or guardian regarding the historical points, exam findings, and any diagnostic results supporting the discharge/admit diagnosis, lab results, radiology results, the need for outpatient follow up, a family practitioner, to return to the emergency department if symptoms worsen or persist or if there are any questions or concerns that arise at home. 10/30 18:22 Order name: Basic Metabolic Panel; Complete Time: 20:21 kb 10/30 18:22 Order name: CBC with Diff; Complete Time: 20:01 kb 10/30 18:22 Order name: LFT's; Complete Time: 20:21 kb 10/30 18:22 Order name: Magnesium; Complete Time: 20:21 kb 10/30 18:22 Order name: Troponin HS; Complete Time: 20:21 kb 10/30 21:22 Order name: Troponin High Sensitivity; Complete Time: 21:56 kb 10/30 18:22 Order name: XRAY Chest (1 view); Complete Time: 19:55 kb 10/30 18:22 Order name: CT Head Brain wo Cont; Complete Time: 19:34 kb 10/30 18:22 Order name: Cardiac monitoring; Complete Time: 20:10 kb 10/30 18:22 Order name: EKG - Nurse/Tech; Complete Time: 20:12 kb 10/30 18:22 Order name: IV Saline Lock; Complete Time: 19:51 kb 10/30 18:22 Order name: Labs collected and sent; Complete Time: 19:51 kb 10/30 18:22 Order name: O2 Per Protocol; Complete Time: 20:10 kb 10/30 18:22 Order name: O2 Sat Monitoring; Complete Time: 20:10 kb EC:32 Rate is 61 beats/min. Rhythm is regular. QRS [place] is Normal. [place] interval is normal at kb 154 msec. QRS interval is normal at 98 msec. QT interval is normal at 420 msec. Administered Medications: 20:11 Drug: cloNIDine PO 0.2 mg PO once Route: PO; rg5 21:23 Follow up: Response: No adverse reaction; Blood pressure is lowered rg5 20:11 Drug: Acetaminophen PO 1000 mg PO once Route: PO; rg5 21:23 Follow up: Response: No adverse reaction; Pain is decreased rg5 20:11 Drug: Ketorolac IM 30 mg IM once Route: IM; Site: right deltoid; rg5 21:23 Follow up: Response: No adverse reaction; Pain is decreased rg5 20:59 Drug: Magnesium Sulfate IVPB 2 grams IVPB once over 30 mins Route: IVPB; Infused Over: rg5 30 mins; Site: right antecubital; 21:00 Follow up: IV Status: Completed infusion; IV Intake: 100ml rg5 Disposition: 10/31 12:11 Co-signature as Attending Physician, Layo Lomax MD I reviewed the patient's care rt provided by the Advanced Practice Provider and agree with the diagnosis and treatment plan. Disposition Summary: 10/30/24 22:02 Discharge Ordered Notes: Location: Home kb Condition: Stable kb Diagnosis - Essential (primary) hypertension kb - Headache kb Followup: kb - With: Emergency Department - When: As needed - Reason: Worsening of condition Followup: kb - With: Private Physician - When: 2 - 3 days - Reason: Recheck today's complaints, Continuance of care, Re-evaluation by your physician Discharge Instructions: - Discharge Summary Sheet kb - Hypertension, Adult, [id number] kb - General Headache Without Cause, [id number]-[id number] kb Forms: - Medication Reconciliation Form kb - Antibiotic Education kb - Prescription Opioid Use kb - Patient Portal Instructions kb - Leadership Thank You Letter kb Signatures: Dispatcher [employer] Angi Moreno FNP-C STAS-Brock Miguel RN RN Layo Portillo MD MD rt Figueroa Aguiar RN RN rg5 Corrections: (The following items were deleted from the chart) 10/30 18:22 18:22 Chest Single View+RAD.RAD.BRZ ordered. EDMS EDMS 18:22 Head Brain Wo Cont+CT.RAD.BRZ ordered. EDMS EDMS 21:22 Troponin High Sensitivity+C.LAB.BRZ ordered. EDMS EDMS
--- NOTE | 2024-10-30 22:03 | ER ---
Nurse's Notes [facility] Name: Soy Frias Age: 59 yrs Sex: Male : 1965 Arrival Date: 10/30/2024 Time: 17:37 Bed 13 Private MD: Diagnosis: Essential (primary) hypertension;Headache Presentation: 10/30 18:21 Chief complaint: Patient states: ORTIZ x3 DAYS, HTN NOTED AT [facility] TODAY. Coronavirus bp screen: At this time, the client does not indicate any symptoms associated with coronavirus-19. Ebola Screen: No symptoms or risks identified at this time. Initial Sepsis Screen: Does the patient meet any 2 criteria? No. Patient's initial sepsis screen is negative. Does the patient have a suspected source of infection? No. Patient's initial sepsis screen is negative. Risk Assessment: Do you want to hurt yourself or someone else? Patient reports no desire to harm self or others. Onset of symptoms is unknown. 18:21 Method Of Arrival: Ambulatory bp 18:21 Acuity: JANIS 3 bp Triage Assessment: 18:21 General: Appears uncomfortable, Behavior is calm, cooperative, appropriate for age. bp Pain: Complains of pain in head. 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 Full function. 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 - Infectious Disease History:: Denies. - Social history:: Smoking status: Patient denies any tobacco usage or history of. Screenin:00 [facility] ED Fall Risk Assessment (Adult) History of falling in the last 3 months, rg5 including since admission No falls in past 3 months (0 pts) Confusion or Disorientation No (0 pts) Intoxicated or Sedated No (0 pts) Impaired Gait No (0 pts) Mobility Assist Device Used No (0 pt) Altered Elimination No (0 pt) Score/Fall Risk Level 0 - 2 = Low Risk Oriented to surroundings, Maintained a safe environment, Hourly rounding (assess needs \T\ fall precautionary measures) done. Abuse screen: Denies threats or abuse. Nutritional screening: No deficits noted. Tuberculosis screening: No symptoms or risk factors identified. Assessment: 20:00 General: Appears in no apparent distress. comfortable, Behavior is calm, cooperative, rg5 appropriate for age. 20:00 Pain: Complains of pain in chest. Neuro: Level of Consciousness is awake, alert, obeys rg5 commands, Oriented to person, place, time. Cardiovascular: Capillary refill < 3 seconds Patient's skin is warm and dry. Cardiovascular: Reports None. Respiratory: Reports shortness of breath Airway is patent Trachea midline Respiratory effort is even, unlabored, Respiratory pattern is regular, symmetrical. GI: Abdomen is round non-distended, Abd is soft. : No signs and/or symptoms were reported regarding the genitourinary system. EENT: No signs and/or symptoms were reported regarding the EENT system. Derm: No signs and/or symptoms reported regarding the dermatologic system. Skin is intact, Skin is dry, Skin is normal, Skin temperature is warm. Musculoskeletal: Circulation, motion, and sensation intact. Range of motion: intact in all extremities. Vital Signs: 18:21 BP 185 / 98; Pulse 82; Resp 16; Temp 97.7; Pulse Ox 100% ; bp 19:55 BP 173 / 111; Pulse 75; Resp 17; Pulse Ox 99% ; rg5 20:45 BP 152 / 101; Pulse 70; Resp 17; Pulse Ox 98% on R/A; rg5 21:30 BP 149 / 95; Pulse 74; Resp 17; Pulse Ox 97% on R/A; Pain 0/10; rg5 21:30 Pain Scale: Adult rg5 ED Course: 18:04 Patient arrived in ED. iw 18:11 Angi Comer FNP-C is PHCP. kb 18:11 Layo Lomax MD is Attending Physician. kb 18:13 Angi Comer FNP-C is PHCP. kb 18:13 Layo Lomax MD is Attending Physician. kb 18:21 Triage completed. bp 18:23 Arm band placed on. bp 18:48 CT Head Brain wo Cont In Process Unspecified. EDMS 19:27 XRAY Chest (1 view) In Process Unspecified. EDMS 19:50 Figueroa Aguiar, RN is Primary Nurse. rg5 19:52 Inserted saline lock: 20 gauge in right antecubital area, using aseptic technique. vk Blood collected. Flushed with 10 mL NS. 19:52 Initial lab(s) drawn, by me, sent to lab. vk 20:00 Patient has correct armband on for positive identification. Bed in low position. Call rg5 light in reach. Side rails up X 1. Door closed. Noise minimized. Warm blanket given. 20:00 No provider procedures requiring assistance completed. rg5 20:25 EKG done, by ED staff, reviewed by Angi BREWER. oe 22:19 Provided Education on: post er care. rg5 22:19 IV discontinued, bleeding controlled, No redness/swelling at site. Pressure dressing rg5 applied. Administered Medications: 20:11 Drug: cloNIDine PO 0.2 mg PO once Route: PO; rg5 21:23 Follow up: Response: No adverse reaction; Blood pressure is lowered rg5 20:11 Drug: Acetaminophen PO 1000 mg PO once Route: PO; rg5 21:23 Follow up: Response: No adverse reaction; Pain is decreased rg5 20:11 Drug: Ketorolac IM 30 mg IM once Route: IM; Site: right deltoid; rg5 21:23 Follow up: Response: No adverse reaction; Pain is decreased rg5 20:59 Drug: Magnesium Sulfate IVPB 2 grams IVPB once over 30 mins Route: IVPB; Infused Over: rg5 30 mins; Site: right antecubital; 21:00 Follow up: IV Status: Completed infusion; IV Intake: 100ml rg5 Medication: 20:00 VIS not applicable for this client. rg5 Intake: 21:00 IV: 100ml; Total: 100ml. rg5 Outcome: 22:02 Discharge ordered by . jose angel 22:19 Discharged to home ambulatory, rg5 22:19 Condition: stable 22:19 Instructed on discharge instructions, follow up and referral plans. Demonstrated understanding of instructions, follow-up care, 22:19 Patient left the ED. rg5 Signatures: Dispatcher [employer] EDHI Angi Comer FNP-C FNP-Ckb Williams, Irene, RN RN iw Joaquín Berg oe Brock Keith RN RN bp Kruse, Vivian Figueroa Gregorio, RN RN rg5 Corrections: (The following items were deleted from the chart) 22:12 20:00 Cardiovascular: Reports chest pain, jevon rg5
[2024-10-30 22:49] VITALS: TEMP 97.7
[2024-10-30 22:52] VITALS: BP 149/95; O2SAT 97
--- NOTE | 2024-11-01 16:50 | EKG ---
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
== END 2024-10-30 22:19 | disposition home or self-care (01) ==
LOC: ER 17:37
DX: R51.9 Headache, unspecified (principal); I10 Essential (primary) hypertension; E78.00 Pure hypercholesterolemia, unspecified
CPT/HCPCS: 85025; 80048; 36415; 83735; 80076; 84484 ×2; 70450; 71045; 96372; 96374; 99284; J3475; 93005